=== PATIENT | female | born 1945 | race Caucasian/White ===

== ENCOUNTER 2017-05-09 14:00 | Outpatient (RCR) | payer MEDICARE, SELFPAY ==
--- NOTE | 2017-01-31 06:58 | HP.PTEVAL_ITS ---
Patient's Visit Information DON GTZ is a 71 year old F referred to Physical Therapy by Aby Rosas with a diagnosis of lumbar spinal stenosis. Date of Evaluation: 01/30/17 Physical Therapist: Gen Fuller - Visit Plan Frequency: 2x /Week Duration: 8-12 weeks Plan: Start with BLE and core strengtheing in neutral spine and CKC positioning. Progress gait as tolerated. Add in US or IFC for pain control. Progress balance statically and dynamically once improved BLE and core strengthening has occured. - Subjective Subjective: Pt. is here today for her initial evaluation with diagnosis of lumbar spinal stenosis. She reports having back pain that started ~5 months ago with no mechanism of injury. She had injections, but ultimately had to go to [facility] secondary to increased debility, decreased mobility and high levels of pain. She has improved symptoms, but is now having to use a walker for most mobility and WC for community mobility. She had increased pain in BLEs and lumbar spine. Increased pain: walking, standing, sleeping, and most ADLs. Decreased pain: sitting, use of heat and pain medications. Pt. reports bilateral N/T in feet, but has been diagnosed with peripheral neuropathy. Pt. has DM II, psoriatic arthritis and has history of B TKA and recent R reverse total shoulder replacement. Pt. denies changes in B/B and no saddle region pain. She is currently sleeping in lift chair for comfort. MRI- 08/24/16- multi level facet arthrosis, multilevel annular bulges, multilevel foraminal stenosis , disc extrusion at L1/L2 and ganglion cyst impinging L4 nerve root on R side. Xray- standing on - grade 1 anteriorlithesis L4/L5 and multilevel facet arthrosis. Pt. reports being able to ambulate short distances, but is limited secondary to pain. She did complete HH PT with focus on mobility and initiation of core stability exercises. She did meet with orthopedist who is recommending possible surgery, but would like pt. to improve BLE and core strength to improve post surgical outcomes. Pt. is hopeful to reduce symptoms and increase strength in order to increase mobility and increase tolerance to all functional ADLs. - Pain Lumbar spine Pain Intensity (Out of 10): 3 Pain Intensity Range: 1, 7 B posterior thighs Pain Intensity (Out of 10): 3 Pain Intensity Range: 1, 7 - Objective POSTURE: Sitting posture- slouched overall, rounded shoulder, FH positioning. Pt. is able to stand with walker with improved posture, but has increased symptoms with proper erect posture. PALPATION: Pt. mild increase in symptoms at bilateral lumbar erector spinea. Pt. has no pain to palpation throughout BLEs. NEUROLOGICAL: Pt. has normal sensation throughout bilateral LEs, except has dulled sensation to light touch of bilateral feet/ankles. Pt. has 2+ achilles DTR, difficult to elicit bilateral patellar DTR (pt. did have bilateral TKA). Pt is able to rise on heels with use of balance aide. ROM: LUMBAR SPINE: flexion mod loss difficulty with balance, ext mod loss increase NW , side bend mod loss bilat increase NW, rotation mod loss increase NW bilat. Pt. has decreased HS length and decreased hip flexor length bilaterally. Pt. has slight reduction in hip ROM, restricted secondary to adipose tissue. MMT: RLE- ankle- DF 4/5, PF 4/5; knee- ext 4+/5, flexion 4/5; hip- flexion 3+/5, abd 3+/5, ext 3+/5. LLE- ankle- DF 4+/5, PF 4+/5. knee- ext 4+/5, flexion 4/5; hip - flexion 3+/5, abd 3+/5, ext 3+/5. Core strength- poor. GAIT: Pt. was able to ambulate with FWW NIRMALA x98' without LOB, she heavily uses AD to stabilize. Pt. has flexed posture, decreased hip extension, and reduced lumbar lordosis. Pt. reports increased fatigue and pain as limiting factor with gait. - Balance Scores Tinetti Balance Score: 8 Tinetti Gait Score: 8 Tinetti Balance & Gait Score: 16 - Goals Goal 1:: Pt. to be I with HEP. Goal Time Frame: 4-6 Weeks Goal 2:: Pt. to have decreased pain with sitting, sleeping and walking to 0-2/ 10 pain allowing for increased quality of life. Goal Time Frame: 6-8 Weeks Goal 3:: Pt. to have increased BLE and core strength by 1/2 grade reducing stress applied to lumbar spine with all functional mobility. Goal Time Frame: 8-12 Weeks Goal 4:: Pt. to ambulate greater than 350ft. with walker NIRMALA with 0-2/10 pain allowing for increased community mobility. Goal Time Frame: 6-8 Weeks Goal 5:: Pt. to demonstrate improved upright posture with both sitting and standing reducing stress at lumbar spine with all mobility. Goal Time Frame: 6-8 Weeks Goal 6:: Pt. to have improved lumbar ROM by 25% in all directions without increase in symptoms. Goal Time Frame: 6-8 Weeks - Rehabilitation Potential Physical Therapy Diagnosis: Pt. has signs and symptoms consistent with lumbar spinal stenosis. She has subsequent increased levels of pain in lumbar spine and LES, inrcreased difficulty with walking, decreased core/BLE strength, and decreased ability to tolerate most functional mobility. Rehabilitation Potential: Fair - Anticipated Interventions Patient/Client Instruction: Educate patient on: Condition, Plan of Care, Risk Factors, Benefits of Fitness Program For the Purpose of:: To improve safety, To improve health and function, To foster healthy habits, To improve decision making, To facilitate caregiver knowledge, To improve self management, To prevent re-injury, To improve ability to perform tasks related to life management, To improve tolerance to ADL's Therapeutic Exercise to Include: Strength training, Power training, Endurance training, Balance training, Coordination, Body mechanics, Postural training, Flexibilty training, Gait and locomotor training, Dynamic Lumbar Stabilization, Scapular Strength/Stabilization For the Purpose of:: To decrease pain, To increase ROM, To improve nutrient delivery to tissue, To improve muscle performance and motor function, To improve ability to perform ADL's, To increase tolerance to activity/condition/ position, To improve performance and independence with ADL's, To improve gait and locomotor functions, To improve health of tissue, To decrease soft tissue restriction, To increase flexibility/ROM, To improve endurance, To improve balance, To improve safety with gait IF ES: Yes Cryotherapy (ice pack, ice massage): Yes Ultrasound (thermal/non thermal): Yes For the Purpose of:: To decrease pain, To increase ROM, To improve nutrient delivery to tissue Thank you for the opportunity to evaluate your patient. For Medicare and Medicare HMO plans, please review the plan of care and approve it. It will need to be FAXED BACK to us at [phone] for Medicare purposes. Please let me know if there are questions or concerns regarding this plan of care. Physician Signature: Date:
--- NOTE | 2017-02-20 16:32 | HP.PTEVAL2 ---
Patient's Visit Information DON GTZ is a 71 year old F referred to Physical Therapy by Aby Rosas with a diagnosis of B lateral epicondylitis. Date of Evaluation: 02/20/17 Physical Therapist: Gen Fuller - Visit Plan Frequency: 2x /Week Duration: 4 Weeks Plan: Start with DFM, mobilization with movements of elbow, eccentric strengthening, wrist extensor stretching. May use US and or DN to wrist extensors. - Subjective Subjective: Pt. is here today for her initial evaluation with diagnosis of bilateral lateral epicondylitis. Pt. is known to this PT. She is currently being seen for LBP with need for future surgery. She was seen by her physician for her shoulder (recently replaced) and was having bilateral elbow pain. She was diagnosed with bilateral lateral epicondylitis. Increased pain: WBing on walker, lifting, griping, twisting off bottle caps/lids. Decreased pain: not using my arms. Pt. reports no tingling in her arm, but has pain at lateral aspect of her elbows. She had similar pain in both elbows. He is able to sleep without issues, but has frequent pain with bracing on walker. She reports symptoms have been about the same over the past 2-3 months. Pt. denies C/Spine symptoms and no shoulder issues. She is hopeful to reduce symptoms in order to get back to all lifting and ADLs without issues. - Pain R lateral elbow Intensity: 0 Pain Intensity Range: 0, 6 L lateral elbow Intensity: 0 Pain Intensity Range: 0, 6 - Objective Objective: POSTURE: Pt. has slouched posture, rounded shoulders and has been in WC more often since recent back injury. She is expected back surgery beginning of nest year. Pt. tends to rest elbows on WC arm rest, no pain during. PALPATION: Pt. has increased symptoms to palpation of bilateral lateral epicondyles. No medial pain elbow pain or bilateral distal arm. Pt. had no pain in each wrist. Palpation of lateral epicondyles result in only local symptoms. NEUROLOGICAL: Pt. has normal sensation throughout bilateral UEs with light and sharp touch. Pt. has 2+ bilateral biceps and triceps DTR. ROM: RUE- elbow 0-0-134deg no pain. L elbow- 0-0-136deg. No pain with elbow ROM. Wrist ROM, slight reduction with wrist flexion bilaterally increased stetch noted. CERVICAL SPINE: normal without increase in symptoms. MMT: RUE- wrist- flexion 5/5, ext 4/5 mild increase NW, SUP/PRO- 5/5; elbow- 5/5 throughout no effect. LUE- wrist flexion 5/5, ext 4/5 mild increase NW, SUP/PRO- 5/5; elbow- 5/5 throughout no effect. Sales Account Specialist strength RUE- 49lbs, 44lbs, 48lbs. LUE- 36lbs, 39lbs, 38lbs. Pt. is R hand dominant - Special Tests Valgus Stress Test - MCL Instability: Negative Lat Epiconylitis - as named: Positive Valgus Stress Test - MCL Instability: Negative Lat Epiconylitis - as named: Positive - Goals Goal 1:: Pt. to be I with HEP. Goal Time Frame: 4-6 Weeks Goal 2:: Pt. to have decreased pain at bilateral lateral epicondyles to 0-1/10 pain. Goal Time Frame: 4-6 Weeks Goal 3:: Pt. to have increased tolerance to all ADLs with reports of 0-1/10 bilateral elbow pain. Goal Time Frame: 4-6 Weeks Goal 4:: Pt. to ambulate with use of AD without increase in bilateral elbow pain. Goal Time Frame: 4-6 Weeks Goal 5:: Pt. to lift upto a gallon of milk without increase in symptoms. Goal Time Frame: 4-6 Weeks - Rehabilitation Potential Physical Therapy Diagnosis: Pt. has signs and symptoms consistent with bilateral lateral epicondylitis. She has tenderness at bilateral lateral extensor group. She has decreased brick unloader tender strength and pain with all lifting. She would benefit from PT to increase extensor strength, decreased inflammation of wrist extensor group allowing for increased tolerance to ADLs. Rehabilitation Potential: Good - Anticipated Interventions Patient/Client Instruction: Educate patient on: Condition, Plan of Care, Risk Factors, Benefits of Fitness Program For the Purpose of:: To reduce risk of recurrence, To improve safety, To improve health and function, To foster healthy habits, To improve decision making, To facilitate caregiver knowledge, To improve self management, To prevent re-injury, To improve ability to perform tasks related to life management, To improve tolerance to ADL's Therapeutic Exercise to Include: Strength training, Power training, Postural training, Flexibilty training, Passive ROM, Active ROM For the Purpose of:: To decrease pain, To decrease swelling/inflammation, To increase ROM, To improve nutrient delivery to tissue, To increase oxygenation perfusion, To improve muscle performance and motor function Manual Therapy Techniques to Include: Mobilization, Passive ROM, Functional dry needling For the Purpose of:: To decrease pain, To decrease swelling/inflammation, To increase ROM Ultrasound (thermal/non thermal): Yes For the Purpose of:: To decrease pain, To decrease swelling/inflammation, To increase ROM Thank you for the opportunity to evaluate your patient. For Medicare and Medicare HMO plans, please review the plan of care and approve it. It will need to be FAXED BACK to us at [phone] for Medicare purposes. Please let me know if there are questions or concerns regarding this plan of care. Physician Signature: Date:
--- NOTE | 2017-04-11 07:08 | HP.PTREVAL_ITS ---
Aby Rosas, It has been my pleasure to treat DON GTZ over the last 10 visits for lumbar spinal stenosis. Please see the progress note below for an update on the physical therapy plan of care! Subjective: Pt. reports I was really sore after the last visit (~2 weeks ago). Pt. reports having to use walker more. The only exercise that was added with standing heel/toe raises. Pt. is slowly getting back to previous levels. Pt. arrives today in [place]. Objective/Function: GAIT: Pt. was able to ambualte with FWW 1x120' and 1x142'. SBA without LOB, increased B posterior leg pain as limting factor. BLE strength - 4+/5 througout without increase in symptoms, except 4/5 with bilat hip abd and flexion mld increase increase in symptoms. Core strength- poor+. Pt. is able to demonstrate improved sitting and standing posture allowing for increased tolerance. She continues to be limited with gait to shorter distances secondary to BLE pain. Pt. is sleeping for longer periods with upto 3-4/10 pain ~6 hours per night. LUMBAR ROM- flexion min/mod loss increase, ext mod loss increase NW, SB min loss NE, rotatation min/mod loss increase NW. Plan Plan: Asking for extension of time to continuew ith POC. Pt. has had several things come up with family emergencies and with other co illnesses that have caused to her miss visits. Pt. continues to have plan of lossing enough wt., improving core strength and general mobility in order to have spinal surgery early next year. Overall she is improving, but not to the levels that she would need to have safe recovery from surgery. I would recomend cont. PT (extension of time) to allow for continued visits with continue with core/BLE stregnthening , gerneral mobility and redcued symptoms. Goals Goal 1:: Pt. to be I with HEP. Goal Time Frame: 4-6 Weeks Goal Progress: Goal Met Goal 2:: Pt. to have decreased pain with sitting, sleeping and walking to 0-2/ 10 pain allowing for increased quality of life. Goal Time Frame: 6-8 Weeks Goal Progress: Progressing Goal 3:: Pt. to have increased BLE and core strength by 1/2 grade reducing stress applied to lumbar spine with all functional mobility. Goal Time Frame: 8-12 Weeks Goal Progress: Progressing Goal 4:: Pt. to ambulate greater than 350ft. with walker NIRMALA with 0-2/10 pain allowing for increased community mobility. Goal Time Frame: 6-8 Weeks Goal Progress: Progressing Goal 5:: Pt. to demonstrate improved upright posture with both sitting and standing reducing stress at lumbar spine with all mobility. Goal Time Frame: 6-8 Weeks Goal Progress: Progressing Goal 6:: Pt. to have improved lumbar ROM by 25% in all directions without increase in symptoms. Goal Time Frame: 6-8 Weeks Goal Progress: Progressing Anticipated Interventions Patient/Client Instruction: Educate patient on: Condition, Plan of Care, Risk Factors, Benefits of Fitness Program For the Purpose of:: To improve safety, To improve health and function, To foster healthy habits, To improve decision making, To facilitate caregiver knowledge, To improve self management, To prevent re-injury, To improve ability to perform tasks related to life management, To improve tolerance to ADL's Therapeutic Exercise to Include: Strength training, Power training, Endurance training, Balance training, Coordination, Body mechanics, Postural training, Flexibilty training, Gait and locomotor training, Dynamic Lumbar Stabilization, Scapular Strength/Stabilization For the Purpose of:: To decrease pain, To increase ROM, To improve nutrient delivery to tissue, To improve muscle performance and motor function, To improve ability to perform ADL's, To increase tolerance to activity/condition/ position, To improve performance and independence with ADL's, To improve gait and locomotor functions, To improve health of tissue, To decrease soft tissue restriction, To increase flexibility/ROM, To improve endurance, To improve balance, To improve safety with gait IF ES: Yes Cryotherapy (ice pack, ice massage): Yes Ultrasound (thermal/non thermal): Yes For the Purpose of:: To decrease pain, To increase ROM, To improve nutrient delivery to tissue Please do not hesitate to contact me at [phone] by phone or Fax: if you have questions or concerns regarding this new plan of care! Sincerely, Gen Fuller
--- NOTE | 2017-04-11 07:12 | HP.PT.NRP(2) ---
HP - Discharge Summary (2) - Patient Information DON GTZ was seen in my office for initial evaluation on 02/20/17. The following Plan of Care was established for this patient: Initial Frequency: 2x /Week Initial Duration: 4 Weeks Plan from Re-Evaluation: Start with DFM, mobilization with movements of elbow, eccentric strengthening, wrist extensor stretching. May use US and or DN to wrist extensors. - Anticipated Interventions Patient/Client Instruction: Educate patient on: Condition, Plan of Care, Risk Factors, Benefits of Fitness Program For the Purpose of:: To reduce risk of recurrence, To improve safety, To improve health and function, To foster healthy habits, To improve decision making, To facilitate caregiver knowledge, To improve self management, To prevent re-injury, To improve ability to perform tasks related to life management, To improve tolerance to ADL's Therapeutic Exercise to Include: Strength training, Power training, Postural training, Flexibilty training, Passive ROM, Active ROM For the Purpose of:: To decrease pain, To decrease swelling/inflammation, To increase ROM, To improve nutrient delivery to tissue, To increase oxygenation perfusion, To improve muscle performance and motor function Manual Therapy Techniques to Include: Mobilization, Passive ROM, Functional dry needling For the Purpose of:: To decrease pain, To decrease swelling/inflammation, To increase ROM Ultrasound (thermal/non thermal): Yes For the Purpose of:: To decrease pain, To decrease swelling/inflammation, To increase ROM This patient was last seen in our office . Pertinent comments regarding their Physical therapy will appear below: Pt. was seen for her lateral epicondylitis. She was treated with DFM, eccentric strengthening and with wrist extensor stretching. She is no longer having any pain at this point in time. I will DC her to her [facility] to progress. At this point I will be discontinuing this patient from physical therapy. I would be happy to see this patient again in the future if found appropriate by the physician. Thank you! Gen Fuller
--- NOTE | 2017-07-24 10:12 | HP.PTDCNRP_ITS ---
HP - Discharge Summary (1) - Patient Information DON GTZ was seen in my office for initial evaluation on 01/30/17. The following Plan of Care was established for this patient: Initial Frequency: 2x /Week Initial Duration: 8-12 weeks - Anticipated Interventions Patient/Client Instruction: Educate patient on: Condition, Plan of Care, Risk Factors, Benefits of Fitness Program For the Purpose of:: To improve safety, To improve health and function, To foster healthy habits, To improve decision making, To facilitate caregiver knowledge, To improve self management, To prevent re-injury, To improve ability to perform tasks related to life management, To improve tolerance to ADL's Therapeutic Exercise to Include: Strength training, Power training, Endurance training, Balance training, Coordination, Body mechanics, Postural training, Flexibilty training, Gait and locomotor training, Dynamic Lumbar Stabilization, Scapular Strength/Stabilization For the Purpose of:: To decrease pain, To increase ROM, To improve nutrient delivery to tissue, To improve muscle performance and motor function, To improve ability to perform ADL's, To increase tolerance to activity/condition/ position, To improve performance and independence with ADL's, To improve gait and locomotor functions, To improve health of tissue, To decrease soft tissue restriction, To increase flexibility/ROM, To improve endurance, To improve balance, To improve safety with gait IF ES: Yes Cryotherapy (ice pack, ice massage): Yes Ultrasound (thermal/non thermal): Yes For the Purpose of:: To decrease pain, To increase ROM, To improve nutrient delivery to tissue This patient was last seen in our office 06/04/17. Pertinent comments regarding their Physical therapy will appear below: Pt. was seen for her LBP for 14 visits. Pt. was making steady, but slow progress. She was progressing towards need for surgery as was indicated by physician. She has not been seen in ~ 2 months and will be DC from PT at this point in time. At this point I will be discontinuing this patient from physical therapy. I would be happy to see this patient again in the future if found appropriate by the physician. Thank you! Gen Fuller
== END 2017-05-09 19:00 | disposition home or self-care (01) ==
LOC: PT 14:00
PROVIDERS: Family Provider Internal Medicine; PCP Internal Medicine; Visit Provider Orthopaedic Surgery
DX: M77.11 Lateral epicondylitis, right elbow (principal); M77.12 Lateral epicondylitis, left elbow; M48.061 Spinal stenosis, lumbar region without neurogenic claudication
CPT/HCPCS: 97012; 97014; 97035; 97110; 97161; 97163; 97530; G0283; G8978; G8979; G8984; G8985; G8986

== ENCOUNTER → 2017-05-17 14:37 | Outpatient (CLI) | payer MEDICARE, SELFPAY ==
--- NOTE | 2017-05-17 14:40 | HPBI_ITS ---
MAMMOGRAPHY - BILATERAL SCREENING REASON FOR EXAM: Female, 71 years old. Routine annual screening examination. PERTINENT HISTORY: Non-contributory. TECHNIQUE: Digital bilateral breast rogelio (3D mammographic acquisition) in the CC and MLO projections. 2-D mediolateral oblique (MLO) and craniocaudad (CC) views of both breasts were obtained. CAD: Full Field Digital Mammography with Computer Added Detection was performed. COMPARISON: Comparison is made with prior study dated March 24, 2016 and January 31, 2015. FINDINGS: Breast Composition: The breasts are almost entirely fatty. There are no dominant masses or suspicious calcifications. No other significant abnormalities are identified. There has been no significant change since the prior study. HPBI/SCREENING MAMM (CAD), BILAT IMPRESSION: Stable bilateral screening mammogram. Yearly follow-up mammogram recommended. (A) ASSESSMENT CATEGORY: BIRADS Category 1: Negative. A letter regarding these results will be sent to the patient by the facility within 30 days. Approximately 10% of breast cancers are not detected by mammography. A normal mammogram should not delay biopsy of a clinically suspicious abnormality. [id number] Electronically Signed: Roe Sy MD at 8:31 EST Tel [phone], Service support ,
== END ==
PROVIDERS: Family Provider Internal Medicine; PCP Internal Medicine; Visit Provider Internal Medicine
DX: Z12.31 Encounter for screening mammogram for malignant neoplasm of breast (principal)
CPT/HCPCS: 77063; 77067

== ENCOUNTER 2017-05-20 13:00 | Outpatient (RCR) | payer MEDICARE, SELFPAY | END 2017-05-22 23:59 | LOC: NS 13:00 | PROVIDERS: Family Provider Internal Medicine; PCP Internal Medicine; Visit Provider Orthopaedic Surgery | DX: E66.9 Obesity, unspecified (principal); Z68.43 Body mass index [BMI] 50.0-59.9, adult; E11.9 Type 2 diabetes mellitus without complications; Z71.3 Dietary counseling and surveillance | CPT/HCPCS: 97802; 97803 ==

== ENCOUNTER → 2017-05-30 12:52 | Outpatient (CLI) | payer MEDICARE, SELFPAY ==
[2017-02-14 10:55] VITALS: BMI 54.4
[2017-05-30 13:49] LABS: Amphetamine Urine VISTA NEGATIVE (<1000 ng/mL); Barbiturate Urine VISTA NEGATIVE (< 200 ng/mL); Benzodiazepine Urine VISTA NEGATIVE (< 200 ng/mL); Cocaine Urine VISTA NEGATIVE (< 300 ng/mL); Ecstacy Urine VISTA NEGATIVE (< 500 ng/mL); Methadone Urine VISTA NEGATIVE (< 300 ng/mL); PCP Urine VISTA NEGATIVE (< 25 ng/mL); THC Urine VISTA NEGATIVE (< 50 ng/mL); Vista UDS pH Range 7
== END ==
PROVIDERS: Family Provider Internal Medicine; PCP Internal Medicine; Visit Provider Anesthesiology Pain Medicine
DX: F11.20 Opioid dependence, uncomplicated (principal)
CPT/HCPCS: 80307

== ENCOUNTER 2017-06-10 15:00 | Outpatient (RCR) | payer MEDICARE, SELFPAY ==
[2017-02-14 10:55] VITALS: BMI 54.4
[2017-04-11 13:45] VITALS: BP 137/60
== END 2017-06-19 23:59 ==
LOC: NS 15:00
PROVIDERS: Family Provider Internal Medicine; PCP Internal Medicine; Visit Provider Orthopaedic Surgery
DX: E66.9 Obesity, unspecified (principal); Z68.43 Body mass index [BMI] 50.0-59.9, adult; E11.9 Type 2 diabetes mellitus without complications; Z71.3 Dietary counseling and surveillance
CPT/HCPCS: 97803

== ENCOUNTER 2017-07-07 20:58 | Observation (INO) | payer MEDICARE, SELFPAY ==
[2017-07-07 20:59] VITALS: BP 193/97; PULSE 101; RESP 20; TEMP 37.1; O2SAT 96; BMI 55.0
[2017-07-07] MEDS: morphine 10 MG/ML Syringe SC (22:45)
[2017-07-08] VITALS (8 sets, daily range): BP systolic 134–203; BP diastolic 60–101; PULSE 64–104; RESP 16–20; TEMP 36.6–36.8; O2SAT 92–98; BMI 53.8
[2017-07-08] MEDS: morphine 10 MG/ML Syringe SC (00:05)
--- NOTE | 2017-07-08 01:40 | ED.VISSUMM ---
- ER Visit Summary Date of Service: 07/08/17 Chief Complaint: Back pain History of Present Illness: The patient is a 71 F with a history of chronic back pain who presents with an exacerbation of her back pain today. Patient does not remember any injury or trauma to her back. Patient sees pain management physician for her chronic back pain. Patient states she has seen an orthopedic spine surgeon and had an MRI. Patient states she needs to lose weight before her spine surgeon will do her surgery. Patient states that her pain is over the lower lumbar area and radiates down both lower extremities. Patient states her pain is worse with any movement. Patient denies any bowel or bladder changes. Patient denies any saddle anesthesia. Physical Examination: Vital signs are stable with the exception of an elevated blood pressure of 193/97. Patient is afebrile. Patient is in no acute distress. Musculoskeletal exam reveals tenderness over the lumbar spine paraspinal muscles. There is no bony crepitance or step-off. Range of motion was limited in all motions of the lumbar spine secondary to pain. Strength is 5/5 bilaterally in the upper and lower extremities. There are no sensory deficits noted. There is pain in her low back with straight leg raising bilaterally at approximately 30?. There is no radicular pain with this however. Heart was regular rate and rhythm. Lungs were clear and equal bilaterally. There is good respiratory effort noted. The remaining physical exam is within normal limits. Emergency Department Course and Treatment: Patient was given injection of morphine here. Patient states she had some relief with this. Patient states she then was rolled to put on a bedpan and her pain became worse again. Patient was given a repeat dose of subcu morphine. Patient states she feels unsafe at home. Patient does not feel that she can care for herself tonight. Case was discussed with the hospitalist. She will evaluate the patient. She was given a dose of prednisone here. Disposition: Admit for observation Impression: Acute on chronic low back pain This note was generated with [employer] dictation software. It may contain incorrect words, spelling, and punctuation that were not noted in review of the chart prior to signing ED Disposition - Plan for ED Patient: Disposition: Acute Care Hospital [facility] Chief Complaint: Back Diagnosis: Acute exacerbation of chronic low back pain Referrals: Fadumo Mandel DO [Primary Care Provider] -
--- NOTE | 2017-07-08 01:41 | HP.PCM_ITS ---
Problem List (1) Morbid obesity Status: Chronic (2) Fibromyalgia Status: Chronic (3) IBS (irritable bowel syndrome) Status: Chronic Qualifiers: Irritable bowel syndrome type: with diarrhea Qualified Code(s): K58.0 - Irritable bowel syndrome with diarrhea (4) Obstructive sleep apnea Status: Chronic (5) Acute exacerbation of chronic low back pain Status: Acute (6) Peripheral neuropathy Status: Chronic Qualifiers: Peripheral neuropathy type: polyneuropathy, unspecified Qualified Code(s): G62.9 - Polyneuropathy, unspecified (7) Hypothyroidism Status: Chronic Qualifiers: Hypothyroidism type: unspecified Qualified Code(s): E03.9 - Hypothyroidism , unspecified (8) Chronic low back pain Status: Chronic Qualifiers: Back pain laterality: midline Sciatica presence: with sciatica Sciatica laterality: bilateral sciatica Qualified Code(s): M54.41 - Lumbago with sciatica, right side; M54.42 - Lumbago with sciatica, left side; G89.29 - Other chronic pain (9) Psoriatic arthritis Status: Chronic (10) Type 2 diabetes mellitus Status: Chronic Qualifiers: Diabetes mellitus skilled nursing insulin use: without skilled nursing use Diabetes mellitus complication status: with unspecified complications Qualified Code(s) : E11.8 - Type 2 diabetes mellitus with unspecified complications (11) Hypertension Status: Chronic Qualifiers: Hypertension type: essential hypertension Qualified Code(s): I10 - Essential (primary) hypertension History of Present Illness Date of Admission: 07/08/17 Chief Complaint: Acute on Chronic Intractable Back Pain The patient is a 71 y/o F w/ PMHx: Morbid Obesity, Fibromyalgia, IBS, BALJIT, Peripheral Neurology, Diabetes mellitus type II, Psoriatic Arthritis, Hypertension, Chronic Lumbar Back Pain w/ radiculopathy with lumbar spinal stenosis with impingement noted to be following w/ Dr. Conroy for pain management and Neurosurgery [facility] for planned intervention once appropriate weight loss goal achieved who presents to the [facility] ED on 07/08/17 with history of acute on chronic lumbar back pain w/ worsened BL LE radicular symptoms starting this past Saturday and not improving. She denies any change in bowel or bladder. She notes similar pain baseline but more severe. In the ED patient administered notable regimen morphine with marked improvement thus given severity of debility and unable to care for self ED requested patient admission. No labs were obtained while in the ED. Past Medical History Past Medical History (Chronic Problems): Chronic Problems Morbid obesity (Chronic) Fibromyalgia (Chronic) IBS (irritable bowel syndrome) (Chronic) Obstructive sleep apnea (Chronic) Peripheral neuropathy (Chronic) Hypothyroidism (Chronic) Chronic low back pain (Chronic) Psoriatic arthritis (Chronic) Type 2 diabetes mellitus (Chronic) Hypertension (Chronic) Allergies No Known Allergies Allergy (Verified 02/14/17 12:50) Home Medications: Ambulatory Orders Medication Instructions Recorded Atenolol [Tenormin (beta rema)] 50 mg PO DAILY 02/20/13 Hydroxychloroquine [Plaquenil] 200 mg PO BIDCM 02/20/13 Ropinirole HCl [Requip] 2 mg PO QHS PRN PRN 02/20/13 Gabapentin 400 mg PO 5X/DAY 05/05/13 Cyclobenzaprine [Flexeril] 10 mg PO TID PRN PRN 08/24/13 Infliximab [Remicade] 5 mg IV QMONTH 08/24/13 Multivitamins,Therapeutic 1 tablet PO DAILY 08/24/13 [Multivitamin] Duloxetine Hcl [Cymbalta] 30 mg PO DAILY 05/10/15 Calcium Carbonate [Calcium] 600 mg PO BID 08/25/15 Levothyroxine [Synthroid] 50 mcg PO DAILY 01/23/16 Lansoprazole [Prevacid] 30 mg PO BID 08/21/16 Metformin HCl 500 mg PO DAILY 08/22/16 Citalopram [Celexa] 10 mg PO QHS 07/07/17 Meloxicam 7.5 mg DAILY 07/07/17 Oxycodone Myristate [Xtampza ER] 9 mg PO Q8 PRN 07/07/17 Surgical History: cholecystectomy, hysterectomy, total knee arthroplasty - BL TKR., - - R Reverse Shoulder replacement. Psychiatric History: Depression [employer] History: No pertinent [employer] history Lives: Alone Smoking Status: Never smoker Tobacco Use: Non-smoker Alcohol: None Drugs: None - *Family History Maternal History Items: No pertinent history Paternal History Items: Diabetes, Heart Disease Review of Systems Constitutional: Reports: Weakness, Fatigue. Denies: Chills, Fever, Weight Change HEENT: Denies: Head Aches, Sinus Congestion, Sinus Drainage Cardiovascular: Denies: Chest Pain, Palpitations Respiratory: Denies: Cough, Shortness of breath at rest, Sputum production Gastrointestinal: Reports: Diarrhea. Denies: Abdominal Pain, Nausea, Vomiting Genitourinary: Denies: Dysuria Musculoskeletal: Reports: Back Pain, Leg Pain. Denies: Joint Pain, Joint Tenderness Skin: Denies: Rash, Wounds Neurological: Denies: Numbness, Tingling, Focal weakness Psychiatric: Reports: Depression. Denies: Anxiety, Homicidal Ideations, Suicidal Ideations Hematologic/ Lymphatic: Denies: Easy Bruising, Easy Bleeding VTE Information - Inpt Only VTE Present on Admission: No VTE Mechan Device Prophylaxis: SCD's VTE Pharm Prophylaxis ordered?: Yes Patient Problems: Active and Suspected Problems Acute exacerbation of chronic low back pain (Acute) Subjective: Laying in the ED bed, severe pain with movement, otherwise upon initial evaluation was more comfortable appearing until movement in bed requested. Objective: Physical Examination: General: awake, alert, oriented x 3 and cooperative, laying in the ED bed, severe pain elicited with movement. Skin: normal color, turgor, no icterus, cyanosis. HEENT: AT/NC, EOMI, PERRLA, mildly dry MM, no carotid bruits or JVD noted. Lungs: Diminished BL bases, moderate effort, mild decrease BL bases, no rales, ronchi or wheezing. Heart: Regular rate and rhythm; no gallop, rub audible. Abdomen: soft, morbidly obese, NTTP, ND, normal BS, no HSM; however, habitus makes examination difficult. Extremities: no cyanosis, clubbing, BL ankle edema, severe discomfort to the lateral lumbar spine, discomfort with roll. Neurological: patient awake, alert, oriented x 3; cognitive function intact; pupils equally reactive to light and accomodation; cranial nerves II-XII grossly normal, moving all 4 extremities but severely limited given acute lumbar pain, no focal deficits, strength severely globally decreased secondary to acute presentation. Psychiatric: affect appears strained, no acute evidence of depressive or anxiety feelings. - Physical Exam Vital Signs Temp Pulse Resp BP Pulse Ox 98.7 F 101 H 20 H 203/91 H 96 07/07/17 20:59 07/07/17 20:59 07/07/17 20:59 07/08/17 00:01 07/08/17 00:01 Oxygen Delivery Method Room Air Weight: 291 lb 0.163 oz Body Mass Index (BMI) 55.0 Finger Stick Blood Glucose 164 Assessment/Plan Active and Suspected Problems Acute exacerbation of chronic low back pain (Acute) The patient is a 71 y/o F w/ PMHx: Morbid Obesity, Fibromyalgia, IBS, BALJIT, Peripheral Neurology, Diabetes mellitus type II, Psoriatic Arthritis, Hypertension, Chronic Lumbar Back Pain w/ radiculopathy with lumbar spinal stenosis with impingement noted to be following w/ Dr. Conroy for pain management and Neurosurgery [facility] for planned intervention once appropriate weight loss goal achieved who presents to the [facility] ED on 07/08/17 with history of acute on chronic lumbar back pain w/ worsened BL LE radicular symptoms starting this past Saturday and not improving. She denies any change in bowel or bladder. (1) Acute on Chronic Intractable Back Pain, Lumbar w/ BL LE Radiculopathy with Chronic Spinal Stenosis: Patient notes following w/ Neurosurgery with planned intervention once weight loss goal achieved. Following w/ Dr. Conroy for Chronic pain management. Given debility, unable to care for self, will admit to [facility], maintain on fall precautions, frequent positioning, po/IV pain regimen, burst prednisone steroid regimen, flexeril PRN, anti-emetics, bowel regimen. Will consult PT and OT for evaluation. If pain ongoing may need to obtain MRI lumbar spine region of consider consultation to Dr. Conroy for injection. Most recently noted MRI Lumbar Spine 08/2016 with multilevel foraminal stenosis with impingement. (2) Psoriatic Arthritis: Maintain home regimen plaquenil, outpatient qmonth remicade, PRN pain regimen. (3) Diabetes mellitus type II w/ Neuropathy: Hold oral home regimen, ADA diet, accu checks w/ ISS, continue neurontin. (4) Morbid Obesity: Weight loss and lifestyle changes encouraged, nutrition consulted. (5) Anxiety and Depression: Maintain on home regimen cymbalta, celexa. (6) Hypothyroidism: Maintain on home synthroid regimen. (7) Hypertension: Continue home regimen including atenolol, PRN hydralazine. (8) GERD: Famotidine. (9) RLS: Maintain on home requip regimen. (10) BALJIT: BIPAP q HS. (11) DVT Prophylaxis: SCDs, lovenox. Code Visit OBSV E&M: 21950 Initial observation care L3
--- NOTE | 2017-07-08 01:44 | ED.DCSUM_ITS ---
- ER Visit Summary Date of Service: 07/08/17 Chief Complaint: Back pain History of Present Illness: The patient is a 71 F with a history of chronic back pain who presents with an exacerbation of her back pain today. Patient does not remember any injury or trauma to her back. Patient sees pain management physician for her chronic back pain. Patient states she has seen an orthopedic spine surgeon and had an MRI. Patient states she needs to lose weight before her spine surgeon will do her surgery. Patient states that her pain is over the lower lumbar area and radiates down both lower extremities. Patient states her pain is worse with any movement. Patient denies any bowel or bladder changes. Patient denies any saddle anesthesia. Physical Examination: Vital signs are stable with the exception of an elevated blood pressure of 193/97. Patient is afebrile. Patient is in no acute distress. Musculoskeletal exam reveals tenderness over the lumbar spine paraspinal muscles. There is no bony crepitance or step-off. Range of motion was limited in all motions of the lumbar spine secondary to pain. Strength is 5 /5 bilaterally in the upper and lower extremities. There are no sensory deficits noted. There is pain in her low back with straight leg raising bilaterally at approximately 30?. There is no radicular pain with this however. Heart was regular rate and rhythm. Lungs were clear and equal bilaterally. There is good respiratory effort noted. The remaining physical exam is within normal limits. Emergency Department Course and Treatment: Patient was given injection of morphine here. Patient states she had some relief with this. Patient states she then was rolled to put on a bedpan and her pain became worse again. Patient was given a repeat dose of subcu morphine. Patient states she feels unsafe at home. Patient does not feel that she can care for herself tonight. Case was discussed with the hospitalist. She will evaluate the patient. She was given a dose of prednisone here. Disposition: Admit for observation Impression: Acute on chronic low back pain This note was generated with [employer] dictation software. It may contain incorrect words, spelling, and punctuation that were not noted in review of the chart prior to signing ED Disposition - Plan for ED Patient: Disposition: Acute Care Hospital [facility] Chief Complaint: Back Diagnosis: Acute exacerbation of chronic low back pain Referrals: Fadumo Mandel DO [Primary Care Provider] -
[2017-07-08] MEDS: Ketorolac 30 MG/ML Syringe IV ×3 (03:43→18:34)
[2017-07-08 04:05] LABS: Absolute Lymphocyte Count 1.28 X10^3/ul (0.83-4.51); Absolute Neutrophil Count 7.2 X10^3/uL (2.0-7.7); Basophil# 0.06 X10^3/uL; Basophil% 0.6 % (0-1); Eosinophil# 0.37 X10^3/uL; Eosinophils% 3.9 % (0-5); Hematocrit 39.3 % (37-47); Hemoglobin 12.7 g/dl (12.0-15.0); Lymphocyte # 1.28 X10^3/ul (4.0); Lymphocyte % 13.4 % (19-41); Mean Corp Hgb Conc 32.3 g/gl (32-36); Mean Corpuscular Hgb 29.3 pg (27.0-32.0); Mean Corpuscular Volume 90.6 fL (81-99); Mean Platelet Vol. 9.8 fl (6.2-12.0); Monocyte# 0.65 X10^3/uL; Monocyte% 6.8 % (0-10); Neutrophil # 7.17 X10^3/uL (2.7-7.7); Neutrophil % 74.9 % (47-70); Platelet Count 258 K/mm3 (150-450); RBC Distribution Width CV 13.6 % (11.6-14.6); RBC Distribution Width SD 44.6 fl (35.1-43.9); Red Blood Count 4.34 M/mm3 (4.2-5.4); White Blood Count 9.6 K/mm3 (4.4-11.0)
[2017-07-08 04:09] LABS: POSITIVE COUNT NO; POSITIVE DIFFERENTIAL NO; POSITIVE MORPHOLOGY NO
[2017-07-08 04:17] LABS: ALB/GLOB Ratio 0.8 RATIO (0.9-2.4); AST(SGOT) 18 U/L (15-37); Alanine Aminotransfer ALT/SGPT 23 U/L (13-56); Albumin, Serum 3.1 g/dL (3.2-5.0); Alkaline Phosphatase 83 U/L (45-117); Anion Gap 9 (5-15); BUN 15 mg/dL (7-18); BUN/Creat Ratio 15.4 RATIO (10-20); Calcium,Total 8.6 mg/dL (8.5-10.1); Chloride 104 mmol/L (98-107); Creatinine, Serum 0.98 mg/dL (0.55-1.02); EST Glomerular Filtration Rate 60 mL/min (>60); Est Glom Filt Rate - Afr Amer 72 mL/min (>60); Estimated Creatinine Clearance 39.73 ml/min; Globulin 4.1 g/dL (2.2-4.2); Glucose 105 mg/dL (74-106); Potassium 3.9 mmol/L (3.5-5.1); Protein, Total 7.2 g/dL (6.4-8.2); Sodium Level 140 mmol/L (136-145)
--- NOTE | 2017-07-08 05:01 | CPS ---
pt wears bipap at night at home, wants to bring in her own machine i still her tonight. declined use of ours for the remainder of the night.
[2017-07-08] MEDS: 0.9% NaCl Peripheral Flush Adult/Peds IV ×2 (06:36→11:09)
[2017-07-08] MEDS: CLARIFY ORDER 1 EACH NOTE (06:37)
[2017-07-08] MEDS: Gabapentin 400 MG Capsule PO ×5 (06:40→22:26)
[2017-07-08] MEDS: Levothyroxine 50 MCG Tablet PO (06:40)
[2017-07-08 06:46] LABS: Bedside Glucose 135 mg/dL (70-110)
[2017-07-08] MEDS: oxyCODONE HCl Cr 10 MG Tablet PO ×3 (06:48→22:27)
[2017-07-08] MEDS: DULoxetine Hcl 60 MG Capsule PO (07:58)
[2017-07-08] MEDS: Hydroxychloroquine 200 MG Tablet PO ×2 (07:58→16:06)
[2017-07-08] MEDS: Atenolol 50 MG Tablet PO (07:58)
[2017-07-08] MEDS: Famotidine 20 MG Tablet PO ×2 (10:02→22:26)
[2017-07-08] MEDS: Enoxaparin 40 MG/0.4 ML Syringe SC (10:03)
[2017-07-08 11:25] LABS: Bedside Glucose 181 mg/dL (70-110)
--- NOTE | 2017-07-08 14:40 | PCM.PN.BLA ---
Progress Note 71-year-old super morbid obese patient with past medical history of chronic low back pain with radiculopathy secondary to lumbar spinal stenosis, follows up with pain management in the outpatient admitted with acute intractable back pain. Patient was seen and examined, denied any new complaints, says she feels much better. Pain is 2/10, yet to ambulate with a walker. Denies any incontinence of urine or stool. Denies any fever or chills or nausea or vomiting. Physical exam shows stable vitals, patient able to wiggle her toes, appears comfortable. Did not ambulate patient out of bed. Will get DR. Conroy on consult. Will possibly discharge in am if she continue to be improved. Code Visit Procedures: Other Procedure - See Report - Non-billable rounding
[2017-07-08 16:21] LABS: Bedside Glucose 120 mg/dL (70-110)
[2017-07-08] MEDS: Citalopram 10 MG Tablet PO (22:26)
[2017-07-08 22:30] LABS: Bedside Glucose 152 mg/dL (70-110)
[2017-07-09] VITALS (8 sets, daily range): BP systolic 121–167; BP diastolic 67–87; PULSE 55–71; RESP 16–20; TEMP 36.2–36.8; O2SAT 91–97
[2017-07-09] MEDS: Acetaminophen 325 MG Tablet 650 MG PO (02:52)
[2017-07-09] MEDS: Levothyroxine 50 MCG Tablet PO (06:16)
[2017-07-09] MEDS: Gabapentin 400 MG Capsule PO ×5 (06:16→21:12)
[2017-07-09] MEDS: oxyCODONE HCl Cr 10 MG Tablet PO ×3 (06:17→21:12)
[2017-07-09 07:41] LABS: Bedside Glucose 92 mg/dL (70-110)
[2017-07-09] MEDS: 0.9% NaCl Peripheral Flush Adult/Peds IV (08:24)
[2017-07-09] MEDS: HYDROmorphone 0.5 MG/0.5 ML SYRINGE IV (08:24)
[2017-07-09] MEDS: Hydroxychloroquine 200 MG Tablet PO ×2 (08:27→16:27)
[2017-07-09] MEDS: Famotidine 20 MG Tablet PO ×2 (08:28→21:12)
[2017-07-09] MEDS: DULoxetine Hcl 60 MG Capsule PO (08:28)
[2017-07-09] MEDS: Atenolol 50 MG Tablet PO (08:29)
[2017-07-09] MEDS: Enoxaparin 40 MG/0.4 ML Syringe SC (10:20)
[2017-07-09 11:21] LABS: Bedside Glucose 157 mg/dL (70-110)
[2017-07-09] MEDS: Meloxicam 7.5 MG Tablet PO (16:26)
[2017-07-09] MEDS: Calcium Carbonate 500 MG Tablet PO ×2 (16:26→21:13)
[2017-07-09] MEDS: oxyCODONE 5 MG Tablet PO (16:34)
[2017-07-09 16:51] LABS: Bedside Glucose 172 mg/dL (70-110)
--- NOTE | 2017-07-09 17:49 | PCM.PN.HOSP ---
Patient Problems: Active and Suspected Problems Acute exacerbation of chronic low back pain (Acute) Subjective: Patient was seen and examined. Complains of low back pain. Request Toradol. Explained that we cannot give Toradol more than the recommended doses. Patient states that Dr. Conroy saw her and wanted her discharge in the same outpatient medication. She feels that she lives alone and cannot do well on the current regimen. She denied any chest pain or dizziness or constipation no nausea no vomiting. Vitals/I&O's: Vital Signs Temp Pulse Resp BP Pulse Ox 98.0 F 58 L 20 H 148/77 H 97 07/09/17 16:00 07/09/17 16:00 07/09/17 16:00 07/09/17 16:00 07/09/17 16:00 Oxygen Delivery Method Room Air Weight: 129.2 kg Body Mass Index (BMI) 53.8 Intake and Output for Last 24 Hours 07/07/17 07/08/17 07/09/17 23:59 23:59 23:59 Intake Total 500 / 500 1160 / 1160 Output Total 350 / 350 Balance 500 / 500 810 / 810 General: Alert, Oriented x3, Cooperative, No apparent distress, - - morbidly obese HEENT: Atraumatic, PERRLA, EOMI, Normocephalic Oral: Moist Mucosa Neck: Supple Lungs: Clear to auscultation, Normal air movement Cardiovascular: Regular rate, Regular Rhythm, Normal S1, Normal S2, No murmurs Abdomen: Bowel Sounds Present, Soft, Non Tender, Non-Distended, No Hepato-splenomegaly Extremities: No edema Skin: No rashes Musculoskeletal: No Tenderness to Palpation of Joints or Extremities Lymphatic: No Cervical, Supraclavicular, or Inguinal Adenopathy Neurological: Cranial nerves II-XII grossly intact, Motor Exam 5/5 strength throughout Psych/Mental Status: Normal Affect, Appropriate Laboratory Results 07/08/17 22:20: POC Glucose 152 H 07/09/17 07:33: POC Glucose 92 07/09/17 11:15: POC Glucose 157 H 07/09/17 16:24: POC Glucose 172 H Current Medications Acetaminophen (Tylenol) 650 mg PO Q6H PRN PRN PRN Reason: Non-cardiac pain (mod-severe) Last Admin: 07/09/17 02:52 Dose: 650 mg Al Hydroxide/Mg Hydroxide (Mylanta Ii) 30 ml PO Q6H PRN PRN PRN Reason: Gastric burning Atenolol (Tenormin (Beta Dain)) 50 mg PO DAILY [facility] Last Admin: 07/09/17 08:29 Dose: 50 mg Calcium Carbonate (Tums) 500 mg PO BID [facility] Last Admin: 07/09/17 16:26 Dose: 500 mg Citalopram Hydrobromide (Celexa) 10 mg PO QHS [facility] Last Admin: 07/08/17 22:26 Dose: 10 mg Cyclobenzaprine HCl (Flexeril) 10 mg PO TID PRN PRN PRN Reason: MUSCLE SPASM Last Admin: 07/09/17 10:22 Dose: 10 mg Dextrose (D50w Syringe) 0 gm IV X1 PRN; Protocol PRN Reason: Hypoglycemia Duloxetine HCl (Cymbalta) 60 mg PO DAILY [facility] Last Admin: 07/09/17 08:28 Dose: 60 mg Enoxaparin Sodium (Lovenox) 40 mg SC DAILY@1000 [facility] Last Admin: 07/09/17 10:20 Dose: 40 mg Famotidine (Pepcid) 20 mg PO BID [facility] Last Admin: 07/09/17 08:28 Dose: 20 mg Gabapentin (Neurontin) 400 mg PO 5X/DAY [facility] Last Admin: 07/09/17 14:06 Dose: 400 mg Glucagon () 1 mg IM .X1 PRN PRN Reason: Hypoglycemia Hydralazine HCl (Apresoline Iv) 10 mg IV Q4H PRN PRN PRN Reason: SBP > 160 Hydromorphone HCl (Dilaudid Iv) 0.5 mg IV Q3H PRN PRN PRN Reason: SEVERE PAIN (6-10/10) Last Admin: 07/09/17 08:24 Dose: 0.5 mg Hydroxychloroquine [facility] ([facility]) [facility] Last Admin: 07/09/17 16:27 Dose: 200 mg Insulin Aspart (Novolog Flexpen (Bkc)) 0 units SC ACHS [facility] PRN Reason: Protocol Last Admin: 07/09/17 16:28 Dose: 1 u Levothyroxine Sodium (Synthroid) 50 mcg PO DAILY@0600 [facility] Last Admin: 07/09/17 06:16 Dose: 50 mcg Magnesium Hydroxide (Milk Of Magnesia) 30 ml PO DAILY PRN PRN PRN Reason: Constipation Meloxicam (Mobic) 7.5 mg PO DAILY [facility] Last Admin: 07/09/17 16:26 Dose: 7.5 mg Metformin HCl (Glucophage) [facility] Last Admin: 07/09/17 08:27 Dose: 500 mg Multivitamins (Multivitamin) [facility] tablet [facility] Ondansetron HCl (Zofran) 4 mg IV Q8H PRN PRN PRN Reason: NAUSEA Oxycodone HCl (Oxycontin) 10 mg PO Q8 [facility] Last Admin: 07/09/17 14:05 Dose: 10 mg Oxycodone HCl (Oxyir) 5 mg PO Q4H PRN PRN PRN Reason: SEVERE PAIN (6-10/10) Last Admin: 07/09/17 16:34 Dose: 5 mg Pantoprazole Sodium (Protonix) 40 mg PO BID [facility] Pramipexole Dihydrochloride (Mirapex) 1 mg PO QHS PRN PRN PRN Reason: ANXIETY Promethazine HCl (Phenergan (Ll)) 12.5 mg IV Q6H PRN PRN PRN Reason: NAUSEA/VOMITING Sodium Chloride () 5 - 30 ml IV UD PRN PRN Reason: SALINE FLUSH Last Admin: 07/09/17 08:24 Dose: 10 ml Medical Necessity - Tobacco Use Smoking Status: Never smoker Tobacco Use: Non-smoker Assessment/Plan Active and Suspected Problems Acute exacerbation of chronic low back pain (Acute) 71 y/o F with PMHx of Morbid Obesity, Diabetes mellitus type II, Hypertension, Chronic Lumbar Back Pain with radiculopathy with lumbar spinal stenosis with impingement, following Dr. Conroy admitted on 07/08/17 with history of acute on chronic lumbar back pain with worsened bilateral lower extremity radicular pain. 1. Acute on Chronic Intractable Back Pain, lumbar with bilateral lower extremity radiculopathy with chronic spinal stenosis, pain is fairly controlled, on Oxycodone CR 10mg po 8hrly with oxycodone 5mg prn, 2. Psoriatic Arthritis, on plaquenil, outpatient q month remicade, PRN pain regimen. 3. Diabetes mellitus type II with neuropathy, on ADA diet, accuchecks, with ISS, continue neurontin. 4. Morbid Obesity, weight loss and lifestyle changes encouraged. 5. Anxiety and Depression, on cymbalta, celexa. 6. Hypothyroidism, on synthroid. 7. Hypertension, stable, on atenolol, PRN hydralazine. 8. DVT Prophylaxis - SCDs, lovenox. Code Visit Inpatient E&M: 75845 Subs Hosp L2
--- NOTE | 2017-07-09 18:04 | PN_ITS ---
Patient Problems: Active and Suspected Problems Acute exacerbation of chronic low back pain (Acute) Subjective: Patient was seen and examined. Complains of low back pain. Request Toradol. Explained that we cannot give Toradol more than the recommended doses. Patient states that Dr. Conroy saw her and wanted her discharge in the same outpatient medication. She feels that she lives alone and cannot do well on the current regimen. She denied any chest pain or dizziness or constipation no nausea no vomiting. Vitals/I&O's: Vital Signs Temp Pulse Resp BP Pulse Ox 98.0 F 58 L 20 H 148/77 H 97 07/09/17 16:00 07/09/17 16:00 07/09/17 16:00 07/09/17 16:00 07/09/17 16:00 Oxygen Delivery Method Room Air Weight: 129.2 kg Body Mass Index (BMI) 53.8 Intake and Output for Last 24 Hours 07/07/17 07/08/17 07/09/17 23:59 23:59 23:59 Intake Total 500 / 500 1160 / 1160 Output Total 350 / 350 Balance 500 / 500 810 / 810 General: Alert, Oriented x3, Cooperative, No apparent distress, - - morbidly obese HEENT: Atraumatic, PERRLA, EOMI, Normocephalic Oral: Moist Mucosa Neck: Supple Lungs: Clear to auscultation, Normal air movement Cardiovascular: Regular rate, Regular Rhythm, Normal S1, Normal S2, No murmurs Abdomen: Bowel Sounds Present, Soft, Non Tender, Non-Distended, No Hepato- splenomegaly Extremities: No edema Skin: No rashes Musculoskeletal: No Tenderness to Palpation of Joints or Extremities Lymphatic: No Cervical, Supraclavicular, or Inguinal Adenopathy Neurological: Cranial nerves II-XII grossly intact, Motor Exam 5/5 strength throughout Psych/Mental Status: Normal Affect, Appropriate Laboratory Results 07/08/17 22:20: POC Glucose 152 H 07/09/17 07:33: POC Glucose 92 07/09/17 11:15: POC Glucose 157 H 07/09/17 16:24: POC Glucose 172 H Current Medications Acetaminophen (Tylenol) 650 mg PO Q6H PRN PRN PRN Reason: Non-cardiac pain (mod-severe) Last Admin: 07/09/17 02:52 Dose: 650 mg Al Hydroxide/Mg Hydroxide (Mylanta Ii) 30 ml PO Q6H PRN PRN PRN Reason: Gastric burning Atenolol (Tenormin (Beta Dain)) 50 mg PO DAILY [facility] Last Admin: 07/09/17 08:29 Dose: 50 mg Calcium Carbonate (Tums) 500 mg PO BID [facility] Last Admin: 07/09/17 16:26 Dose: 500 mg Citalopram Hydrobromide (Celexa) 10 mg PO QHS [facility] Last Admin: 07/08/17 22:26 Dose: 10 mg Cyclobenzaprine HCl (Flexeril) 10 mg PO TID PRN PRN PRN Reason: MUSCLE SPASM Last Admin: 07/09/17 10:22 Dose: 10 mg Dextrose (D50w Syringe) 0 gm IV X1 PRN; Protocol PRN Reason: Hypoglycemia Duloxetine HCl (Cymbalta) 60 mg PO DAILY [facility] Last Admin: 07/09/17 08:28 Dose: 60 mg Enoxaparin Sodium (Lovenox) 40 mg SC DAILY@1000 [facility] Last Admin: 07/09/17 10:20 Dose: 40 mg Famotidine (Pepcid) 20 mg PO BID [facility] Last Admin: 07/09/17 08:28 Dose: 20 mg Gabapentin (Neurontin) 400 mg PO 5X/DAY [facility] Last Admin: 07/09/17 14:06 Dose: 400 mg Glucagon () 1 mg IM .X1 PRN PRN Reason: Hypoglycemia Hydralazine HCl (Apresoline Iv) 10 mg IV Q4H PRN PRN PRN Reason: SBP > 160 Hydromorphone HCl (Dilaudid Iv) 0.5 mg IV Q3H PRN PRN PRN Reason: SEVERE PAIN (6-10/10) Last Admin: 07/09/17 08:24 Dose: 0.5 mg [facility]ine [facility]) [facility] Last Admin: 07/09/17 16:27 Dose: 200 mg Insulin Aspart (Novolog Flexpen (Bkc)) 0 units SC ACHS [facility] PRN Reason: Protocol Last Admin: 07/09/17 16:28 Dose: 1 u Levothyroxine Sodium (Synthroid) 50 mcg PO DAILY@0600 [facility] Last Admin: 07/09/17 06:16 Dose: 50 mcg Magnesium Hydroxide (Milk Of Magnesia) 30 ml PO DAILY PRN PRN PRN Reason: Constipation Meloxicam (Mobic) 7.5 mg PO DAILY [facility] Last Admin: 07/09/17 16:26 Dose: 7.5 mg Metformin HCl (Glucophage) [facility] Last Admin: 07/09/17 08:27 Dose: 500 mg Multivitamins (Multivitamin) [facility] Ondansetron HCl (Zofran) 4 mg IV Q8H PRN PRN PRN Reason: NAUSEA Oxycodone HCl (Oxycontin) 10 mg PO Q8 [facility] Last Admin: 07/09/17 14:05 Dose: 10 mg Oxycodone HCl (Oxyir) 5 mg PO Q4H PRN PRN PRN Reason: SEVERE PAIN (6-10/10) Last Admin: 07/09/17 16:34 Dose: 5 mg Pantoprazole Sodium (Protonix) 40 mg PO BID [facility] Pramipexole Dihydrochloride (Mirapex) 1 mg PO QHS PRN PRN PRN Reason: ANXIETY Promethazine HCl (Phenergan (Ll)) 12.5 mg IV Q6H PRN PRN PRN Reason: NAUSEA/VOMITING Sodium Chloride () 5 - 30 ml IV UD PRN PRN Reason: SALINE FLUSH Last Admin: 07/09/17 08:24 Dose: 10 ml Medical Necessity - Tobacco Use Smoking Status: Never smoker Tobacco Use: Non-smoker Assessment/Plan Active and Suspected Problems Acute exacerbation of chronic low back pain (Acute) 71 y/o F with PMHx of Morbid Obesity, Diabetes mellitus type II, Hypertension, Chronic Lumbar Back Pain with radiculopathy with lumbar spinal stenosis with impingement, following Dr. Conroy admitted on 07/08/17 with history of acute on chronic lumbar back pain with worsened bilateral lower extremity radicular pain. 1. Acute on Chronic Intractable Back Pain, lumbar with bilateral lower extremity radiculopathy with chronic spinal stenosis, pain is fairly controlled , on Oxycodone CR 10mg po 8hrly with oxycodone 5mg prn, 2. Psoriatic Arthritis, on plaquenil, outpatient q month remicade, PRN pain regimen. 3. Diabetes mellitus type II with neuropathy, on ADA diet, accuchecks, with ISS , continue neurontin. 4. Morbid Obesity, weight loss and lifestyle changes encouraged. 5. Anxiety and Depression, on cymbalta, celexa. 6. Hypothyroidism, on synthroid. 7. Hypertension, stable, on atenolol, PRN hydralazine. 8. DVT Prophylaxis - SCDs, lovenox. Code Visit Inpatient E&M: 63156 Subs Hosp L2
[2017-07-09] MEDS: Citalopram 10 MG Tablet PO (21:12)
[2017-07-09] MEDS: Pantoprazole Sodium 40 MG Tablet PO (21:13)
[2017-07-09 22:36] LABS: Bedside Glucose 153 mg/dL (70-110)
[2017-07-10] VITALS (14 sets, daily range): BP systolic 123–163; BP diastolic 59–83; PULSE 52–66; RESP 16–20; TEMP 35.9–36.8; O2SAT 94–98; BMI 53.8
[2017-07-10] MEDS: hydrALAZINE 20 MG/ML Vial 10 MG IV (04:38)
[2017-07-10] MEDS: 0.9% NaCl Peripheral Flush Adult/Peds IV ×2 (04:38→13:52)
[2017-07-10] MEDS: oxyCODONE 5 MG Tablet PO ×3 (04:39→16:32)
[2017-07-10] MEDS: Levothyroxine 50 MCG Tablet PO (05:26)
[2017-07-10] MEDS: Gabapentin 400 MG Capsule PO ×4 (05:26→20:50)
[2017-07-10] MEDS: oxyCODONE HCl Cr 10 MG Tablet PO ×2 (05:26→20:50)
[2017-07-10 06:46] LABS: Bedside Glucose 113 mg/dL (70-110)
[2017-07-10] MEDS: Multivitamins,Therapeutic Tablet 1 TABLET PO (08:37)
[2017-07-10] MEDS: DULoxetine Hcl 60 MG Capsule PO (08:37)
[2017-07-10] MEDS: Hydroxychloroquine 200 MG Tablet PO ×2 (08:37→17:27)
[2017-07-10] MEDS: Calcium Carbonate 500 MG Tablet PO ×2 (08:38→20:50)
[2017-07-10] MEDS: Famotidine 20 MG Tablet PO ×2 (08:38→20:50)
[2017-07-10] MEDS: Atenolol 50 MG Tablet PO (08:38)
[2017-07-10] MEDS: Meloxicam 7.5 MG Tablet PO (08:38)
[2017-07-10] MEDS: Pantoprazole Sodium 40 MG Tablet PO ×2 (08:38→20:49)
[2017-07-10] MEDS: Enoxaparin 40 MG/0.4 ML Syringe SC (09:01)
[2017-07-10 12:05] LABS: Bedside Glucose 97 mg/dL (70-110)
--- NOTE | 2017-07-10 14:02 | NURSING ---
REPORT CALLED TO KEREN BARAJAS IN [facility]. PT TO [facility] VIA BED.
--- NOTE | 2017-07-10 15:25 | RAD_ITS ---
STUDY: X-RAY - LUMBAR SPINE REASON FOR EXAM: Female, 71 years old. L4-S1 nerve block TECHNIQUE: 3 fluoroscopic views of the lumbar spine were obtained from an injection procedure. COMPARISON: None FINDINGS: Fluoroscopy was provided during a nerve block procedure. There is a needle noted overlying the L4-S1 levels. Please see the operative report for additional details. RAD/Spine 1 View Any Level IMPRESSION: Fluoroscopy provided during a nerve block procedure. Electronically Signed: Lázaro John, at 17:09 EDT Tel , Service support ,
[2017-07-10] MEDS: Triamcinolone Acetonide 40 MG/ML Vial ×2 (15:40)
--- NOTE | 2017-07-10 16:09 | CHAPLAIN ---
Type of Pastoral Visit _x__ Initial Visit ___ Follow-up Visit ___ On-call Visit ___ General Patient Visit ___ Spiritual Assessment ___ Family Conference ___ Bereavement ___ Rapid Response ___ Code Blue ___ Other (describe below) Pastoral Care Referral From _x__ Patient ___ Family ___ Nurse ___ Physician ___ Discharging Machine Operator ___ Pan Tank Worker ___ Other (describe below) Sacrament/Intervention _x__ Active listening ___ Anointing ___ Yarsani ___ Bereavement ___ Communion ___ Sharmila exploration ___ ___ Life review _x__ Prayer ___ Reconciliation ___ Sacrament of Sick ___ Supportive presence ___ Wedding ___ Other (describe below) Pastoral Comments 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
[2017-07-10 16:26] LABS: Bedside Glucose 91 mg/dL (70-110)
[2017-07-10] MEDS: Acetaminophen 325 MG Tablet 650 MG PO (20:12)
[2017-07-10] MEDS: Pramipexole Di-HCl 1 MG Tablet PO (20:45)
[2017-07-10] MEDS: Citalopram 10 MG Tablet PO (20:50)
[2017-07-10 22:46] LABS: Bedside Glucose 130 mg/dL (70-110)
--- NOTE | 2017-07-10 22:59 | PCM.PN.HOSP ---
Patient Problems: Active and Suspected Problems Acute exacerbation of chronic low back pain (Acute) Subjective: Patient was seen and examined. Pain in back is 4 out of 10. Going for epidural injection. Denies fever, chills, chest pain, dizziness. Objective: Physical exam: General: Alert, Oriented x3, Cooperative, No apparent distress, - - morbidly obese HEENT: Atraumatic, PERRLA, EOMI, Normocephalic Oral: Moist Mucosa Neck: Supple Lungs: Clear to auscultation, Normal air movement Cardiovascular: Regular rate, Regular Rhythm, Normal S1, Normal S2, No murmurs Abdomen: Bowel Sounds Present, Soft, Non Tender, Non-Distended, No Hepato-splenomegaly Extremities: No edema Skin: No rashes Musculoskeletal: No Tenderness to Palpation of Joints or Extremities Lymphatic: No Cervical, Supraclavicular, or Inguinal Adenopathy Neurological: Cranial nerves II-XII grossly intact, Motor Exam 5/5 strength throughout Psych/Mental Status: Normal Affect, Appropriate Vitals/I&O's: Vital Signs Temp Pulse Resp BP Pulse Ox 98.3 F 52 L 18 123/59 H 94 07/10/17 19:51 07/10/17 20:15 07/10/17 20:15 07/10/17 19:51 07/10/17 20:15 Oxygen Delivery Method Room Air Weight: 129.2 kg Body Mass Index (BMI) 53.8 Intake and Output for Last 24 Hours 07/08/17 07/09/17 07/10/17 23:59 23:59 23:59 Intake Total 500 / 500 1940 / 1940 1600 / 1600 Output Total 350 / 350 Balance 500 / 500 1590 / 1590 1600 / 1600 Laboratory Results 07/10/17 06:34: POC Glucose 113 H 07/10/17 11:56: POC Glucose 97 07/10/17 16:23: POC Glucose 91 07/10/17 20:53: POC Glucose 130 H Current Medications Acetaminophen (Tylenol) 650 mg PO Q6H PRN PRN PRN Reason: Non-cardiac pain (mod-severe) Last Admin: 07/10/17 20:12 Dose: 650 mg Al Hydroxide/Mg Hydroxide (Mylanta Ii) 30 ml PO Q6H PRN PRN PRN Reason: Gastric burning Atenolol (Tenormin (Beta Dain)) 50 mg PO DAILY [facility] Last Admin: 07/10/17 08:38 Dose: 50 mg Calcium Carbonate (Tums) 500 mg PO BID [facility] Last Admin: 07/10/17 20:50 Dose: 500 mg Citalopram Hydrobromide (Celexa) 10 mg PO QHS [facility] Last Admin: 07/10/17 20:50 Dose: 10 mg Cyclobenzaprine HCl (Flexeril) 10 mg PO TID PRN PRN PRN Reason: MUSCLE SPASM Last Admin: 07/10/17 16:32 Dose: 10 mg Dextrose (D50w Syringe) 0 gm IV X1 PRN; Protocol PRN Reason: Hypoglycemia Duloxetine HCl (Cymbalta) 60 mg PO DAILY [facility] Last Admin: 07/10/17 08:37 Dose: 60 mg Enoxaparin Sodium (Lovenox) 40 mg SC DAILY@1000 [facility] Last Admin: 07/10/17 09:01 Dose: 40 mg Famotidine (Pepcid) 20 mg PO BID [facility] Last Admin: 07/10/17 20:50 Dose: 20 mg Gabapentin (Neurontin) 400 mg PO 5X/DAY [facility] Last Admin: 07/10/17 20:50 Dose: 400 mg Glucagon () 1 mg IM .X1 PRN PRN Reason: Hypoglycemia Hydralazine HCl (Apresoline Iv) 10 mg IV Q4H PRN PRN PRN Reason: SBP > 160 Last Admin: 07/10/17 04:38 Dose: 10 mg Hydromorphone HCl (Dilaudid Iv) 0.5 mg IV Q3H PRN PRN PRN Reason: SEVERE PAIN (6-10/10) Last Admin: 07/09/17 08:24 Dose: 0.5 mg [facility] Last Admin: 07/10/17 17:27 Dose: 200 mg Insulin Aspart (Novolog Flexpen (Bkc)) 0 units SC ACHS [facility] PRN Reason: Protocol Last Admin: 07/10/17 20:54 Dose: Not Given Levothyroxine Sodium (Synthroid) 50 mcg PO DAILY@0600 [facility] Last Admin: 07/10/17 05:26 Dose: 50 mcg Magnesium Hydroxide (Milk Of Magnesia) 30 ml PO DAILY PRN PRN PRN Reason: Constipation Meloxicam (Mobic) 7.5 mg PO DAILY [facility] Last Admin: 07/10/17 08:38 Dose: 7.5 mg Metformin [facility] (Glucophage) [facility] Last Admin: 07/10/17 08:37 Dose: 500 mg Multivitamins ([facility]ivitamin) [facility] Last Admin: 07/10/17 08:37 Dose: 1 tablet Ondansetron HCl (Zofran) 4 mg IV Q8H PRN PRN PRN Reason: NAUSEA Oxycodone HCl (Oxycontin) 10 mg PO Q8 [facility] Last Admin: 07/10/17 20:50 Dose: 10 mg Oxycodone HCl (Oxyir) 5 mg PO Q4H PRN PRN PRN Reason: SEVERE PAIN (6-10/10) Last Admin: 07/10/17 16:32 Dose: 5 mg Pantoprazole Sodium (Protonix) 40 mg PO BID [facility] Last Admin: 07/10/17 20:49 Dose: 40 mg Pramipexole Dihydrochloride (Mirapex) 1 mg PO QHS PRN PRN PRN Reason: ANXIETY Last Admin: 07/10/17 20:45 Dose: 1 mg Promethazine HCl (Phenergan (Ll)) 12.5 mg IV Q6H PRN PRN PRN Reason: NAUSEA/VOMITING Sodium Chloride () 5 - 30 ml IV UD PRN PRN Reason: SALINE FLUSH Last Admin: 07/10/17 13:52 Dose: 10 ml Medical Necessity - Tobacco Use Smoking Status: Never smoker Tobacco Use: Non-smoker Assessment/Plan Active and Suspected Problems Acute exacerbation of chronic low back pain (Acute) 71 y/o F with PMHx of Morbid Obesity, Diabetes mellitus type II, Hypertension, Chronic Lumbar Back Pain with radiculopathy with lumbar spinal stenosis with impingement, following Dr. Conroy admitted on 07/08/17 with history of acute on chronic lumbar back pain with worsened bilateral lower extremity radicular pain. 1. Acute on Chronic Intractable Back Pain, lumbar with bilateral lower extremity radiculopathy with chronic spinal stenosis, pain is fairly controlled, on Oxycodone CR 10mg po 8hrly with oxycodone 5mg prn, going foe epidural injection today. 2. Psoriatic Arthritis, on plaquenil, outpatient q month remicade 3. Diabetes mellitus type II with neuropathy, on ADA diet, accuchecks, with ISS, continue neurontin. 4. Morbid Obesity, weight loss and lifestyle changes encouraged. 5. Anxiety and Depression, on cymbalta, celexa. 6. Hypothyroidism, on synthroid. 7. Hypertension, stable, on atenolol, PRN hydralazine. 8. DVT Prophylaxis - SCDs, lovenox. Code Visit Inpatient E&M: 77143 Subs Hosp L2
--- NOTE | 2017-07-10 23:03 | PN_ITS ---
Patient Problems: Active and Suspected Problems Acute exacerbation of chronic low back pain (Acute) Subjective: Patient was seen and examined. Pain in back is 4 out of 10. Going for epidural injection. Denies fever, chills, chest pain, dizziness. Objective: Physical exam: General: Alert, Oriented x3, Cooperative, No apparent distress, - - morbidly obese HEENT: Atraumatic, PERRLA, EOMI, Normocephalic Oral: Moist Mucosa Neck: Supple Lungs: Clear to auscultation, Normal air movement Cardiovascular: Regular rate, Regular Rhythm, Normal S1, Normal S2, No murmurs Abdomen: Bowel Sounds Present, Soft, Non Tender, Non-Distended, No Hepato- splenomegaly Extremities: No edema Skin: No rashes Musculoskeletal: No Tenderness to Palpation of Joints or Extremities Lymphatic: No Cervical, Supraclavicular, or Inguinal Adenopathy Neurological: Cranial nerves II-XII grossly intact, Motor Exam 5/5 strength throughout Psych/Mental Status: Normal Affect, Appropriate Vitals/I&O's: Vital Signs Temp Pulse Resp BP Pulse Ox 98.3 F 52 L 18 123/59 H 94 07/10/17 19:51 07/10/17 20:15 07/10/17 20:15 07/10/17 19:51 07/10/17 20:15 Oxygen Delivery Method Room Air Weight: 129.2 kg Body Mass Index (BMI) 53.8 Intake and Output for Last 24 Hours 07/08/17 07/09/17 07/10/17 23:59 23:59 23:59 Intake Total 500 / 500 1940 / 1940 1600 / 1600 Output Total 350 / 350 Balance 500 / 500 1590 / 1590 1600 / 1600 Laboratory Results 07/10/17 06:34: POC Glucose 113 H 07/10/17 11:56: POC Glucose 97 07/10/17 16:23: POC Glucose 91 07/10/17 20:53: POC Glucose 130 H Current Medications Acetaminophen (Tylenol) 650 mg PO Q6H PRN PRN PRN Reason: Non-cardiac pain (mod-severe) Last Admin: 07/10/17 20:12 Dose: 650 mg Al Hydroxide/Mg Hydroxide (Mylanta Ii) 30 ml PO Q6H PRN PRN PRN Reason: Gastric burning Atenolol (Tenormin (Beta Dain)) 50 mg PO DAILY [facility] Last Admin: 07/10/17 08:38 Dose: 50 mg Calcium Carbonate (Tums) 500 mg PO BID [facility] Last Admin: 07/10/17 20:50 Dose: 500 mg Citalopram Hydrobromide (Celexa) 10 mg PO QHS [facility] Last Admin: 07/10/17 20:50 Dose: 10 mg Cyclobenzaprine HCl (Flexeril) 10 mg PO TID PRN PRN PRN Reason: MUSCLE SPASM Last Admin: 07/10/17 16:32 Dose: 10 mg Dextrose (D50w Syringe) 0 gm IV X1 PRN; Protocol PRN Reason: Hypoglycemia Duloxetine HCl (Cymbalta) 60 mg PO DAILY [facility] Last Admin: 07/10/17 08:37 Dose: 60 mg Enoxaparin Sodium (Lovenox) 40 mg SC DAILY@1000 [facility] Last Admin: 07/10/17 09:01 Dose: 40 mg Famotidine (Pepcid) 20 mg PO BID [facility] Last Admin: 07/10/17 20:50 Dose: 20 mg Gabapentin (Neurontin) 400 mg PO 5X/DAY [facility] Last Admin: 07/10/17 20:50 Dose: 400 mg Glucagon () 1 mg IM .X1 PRN PRN Reason: Hypoglycemia Hydralazine HCl (Apresoline Iv) 10 mg IV Q4H PRN PRN PRN Reason: SBP > 160 Last Admin: 07/10/17 04:38 Dose: 10 mg Hydromorphone HCl (Dilaudid Iv) 0.5 mg IV Q3H PRN PRN PRN Reason: SEVERE PAIN (6-10/10) Last Admin: 07/09/17 08:24 Dose: 0.5 mg [facility]xych[facility]oquine [facility] ([facility]) [facility] Last Admin: 07/10/17 17:27 Dose: 200 mg Insulin Aspart (Novolog Flexpen (Bkc)) 0 units SC ACHS [facility] PRN Reason: Protocol Last Admin: 07/10/17 20:54 Dose: Not Given Levothyroxine Sodium (Synthroid) 50 mcg PO DAILY@0600 [facility] Last Admin: 07/10/17 05:26 Dose: 50 mcg Magnesium Hydroxide (Milk Of Magnesia) 30 ml PO DAILY PRN PRN PRN Reason: Constipation Meloxicam (Mobic) 7.5 mg PO DAILY [facility] Last Admin: 07/10/17 08:38 Dose: 7.5 mg Metformin HCl (Glucophage) [facility] Last Admin: 07/10/17 08:37 Dose: 500 mg Multivitamins ([facility]ivitamin) [facility] Last Admin: 07/10/17 08:37 Dose: 1 tablet Ondansetron HCl (Zofran) 4 mg IV Q8H PRN PRN PRN Reason: NAUSEA Oxycodone HCl (Oxycontin) 10 mg PO Q8 [facility] Last Admin: 07/10/17 20:50 Dose: 10 mg Oxycodone HCl (Oxyir) 5 mg PO Q4H PRN PRN PRN Reason: SEVERE PAIN (6-10/10) Last Admin: 07/10/17 16:32 Dose: 5 mg Pantoprazole Sodium (Protonix) 40 mg PO BID [facility] Last Admin: 07/10/17 20:49 Dose: 40 mg Pramipexole Dihydrochloride (Mirapex) 1 mg PO QHS PRN PRN PRN Reason: ANXIETY Last Admin: 07/10/17 20:45 Dose: 1 mg Promethazine HCl (Phenergan (Ll)) 12.5 mg IV Q6H PRN PRN PRN Reason: NAUSEA/VOMITING Sodium Chloride () 5 - 30 ml IV UD PRN PRN Reason: SALINE FLUSH Last Admin: 07/10/17 13:52 Dose: 10 ml Medical Necessity - Tobacco Use Smoking Status: Never smoker Tobacco Use: Non-smoker Assessment/Plan Active and Suspected Problems Acute exacerbation of chronic low back pain (Acute) 71 y/o F with PMHx of Morbid Obesity, Diabetes mellitus type II, Hypertension, Chronic Lumbar Back Pain with radiculopathy with lumbar spinal stenosis with impingement, following Dr. Conroy admitted on 07/08/17 with history of acute on chronic lumbar back pain with worsened bilateral lower extremity radicular pain. 1. Acute on Chronic Intractable Back Pain, lumbar with bilateral lower extremity radiculopathy with chronic spinal stenosis, pain is fairly controlled , on Oxycodone CR 10mg po 8hrly with oxycodone 5mg prn, going foe epidural injection today. 2. Psoriatic Arthritis, on plaquenil, outpatient q month remicade 3. Diabetes mellitus type II with neuropathy, on ADA diet, accuchecks, with ISS , continue neurontin. 4. Morbid Obesity, weight loss and lifestyle changes encouraged. 5. Anxiety and Depression, on cymbalta, celexa. 6. Hypothyroidism, on synthroid. 7. Hypertension, stable, on atenolol, PRN hydralazine. 8. DVT Prophylaxis - SCDs, lovenox. Code Visit Inpatient E&M: 94305 Subs Hosp L2
[2017-07-11 02:00] VITALS: BP 135/67; PULSE 51; RESP 18; TEMP 36.4; O2SAT 96
[2017-07-11] MEDS: oxyCODONE 5 MG Tablet PO ×2 (02:32→09:35)
[2017-07-11 02:35] VITALS: PULSE 51
[2017-07-11] MEDS: Gabapentin 400 MG Capsule PO ×3 (06:30→13:19)
[2017-07-11] MEDS: Levothyroxine 50 MCG Tablet PO (06:30)
[2017-07-11] MEDS: oxyCODONE HCl Cr 10 MG Tablet PO ×2 (06:32→13:21)
[2017-07-11 06:51] LABS: Bedside Glucose 119 mg/dL (70-110)
[2017-07-11] MEDS: Multivitamins,Therapeutic Tablet 1 TABLET PO (07:53)
[2017-07-11] MEDS: Hydroxychloroquine 200 MG Tablet PO (07:53)
[2017-07-11] MEDS: Famotidine 20 MG Tablet PO (07:54)
[2017-07-11] MEDS: Pantoprazole Sodium 40 MG Tablet PO (07:54)
[2017-07-11] MEDS: Meloxicam 7.5 MG Tablet PO (07:54)
[2017-07-11] MEDS: DULoxetine Hcl 60 MG Capsule PO (07:55)
[2017-07-11] MEDS: Calcium Carbonate 500 MG Tablet PO (07:55)
[2017-07-11 08:00] VITALS: BP 130/57; PULSE 54; RESP 16; TEMP 36.7; O2SAT 92
[2017-07-11] MEDS: Enoxaparin 40 MG/0.4 ML Syringe SC (09:36)
--- NOTE | 2017-07-11 11:44 | DCINST_ITS ---
- Discharge Diagnoses Current Active Problems: Current Active and Chronic Problems Morbid obesity (Chronic) Fibromyalgia (Chronic) IBS (irritable bowel syndrome) (Chronic) Acute exacerbation of chronic low back pain (Acute) Reason(s) for Visit for Discharge Instructions: Acute on chronic back pain You will use the following diet at home:: Calorie/Carbohydrate Controlled ( specify 1200, 1400, etc), Cardiac Your food should be the consistency of: Regular Your liquids should be the consistency of: Regular/Thin Discharge Activity: Return to Normal Activity Additional Instructions: Follow-up closely with DR. Conroy in the outpatient Allergies/Adverse Reactions: Allergies No Known Allergies Allergy (Verified 02/14/17 12:50) Medications to take at Discharge Atenolol [Tenormin (beta rema)] 50 mg PO DAILY 02/20/13 Hydroxychloroquine [Plaquenil] 200 mg PO BIDCM 02/20/13 Ropinirole HCl [Requip] 2 mg PO QHS PRN PRN 02/20/13 Gabapentin 400 mg PO 5X/DAY 05/05/13 Cyclobenzaprine [Flexeril] 10 mg PO TID PRN PRN 08/24/13 Infliximab [Remicade] 5 mg IV QMONTH 08/24/13 Multivitamins,Therapeutic [Multivitamin] 1 tablet PO DAILY 08/24/13 Duloxetine Hcl [Cymbalta] 30 mg PO DAILY 05/10/15 Calcium Carbonate [Calcium] 600 mg PO BID 08/25/15 Levothyroxine [Synthroid] 50 mcg PO DAILY 01/23/16 Lansoprazole [Prevacid] 30 mg PO BID 08/21/16 Metformin HCl 500 mg PO DAILY 08/22/16 Citalopram [Celexa] 10 mg PO QHS 07/07/17 Oxycodone Myristate [Xtampza ER] 9 mg PO Q8 PRN 07/07/17 Meloxicam 15 mg PO DAILY #30 tab 07/11/17 The following prescriptions were given: Meloxicam 15 mg PO DAILY #30 tab Primary Care Physician: Fadumo Mandel DO [Primary Care Provider] - Please follow up with your Primary Care Physician in: within 2 weeks of discharge Please Follow Up With: Khalida Conroy MD When: as scheduled Proposed Discharge Date: 07/11/17
--- NOTE | 2017-07-11 11:44 | PCM.DC.SUM ---
Discharge Date and Diagnosis - Problem List Patient Problems: Active and Suspected Problems Acute exacerbation of chronic low back pain (Acute) Date of Admission: 07/08/17 Date of Discharge: 07/11/17 - Primary Discharge Diagnosis Active and Suspected Problems Acute on chronic low back pain (Acute) - Secondary Discharge Diagnosis Chronic Problems Morbid obesity (Chronic) Fibromyalgia (Chronic) IBS (irritable bowel syndrome) (Chronic) Obstructive sleep apnea (Chronic) Peripheral neuropathy (Chronic) Hypothyroidism (Chronic) Chronic low back pain (Chronic) Psoriatic arthritis (Chronic) Type 2 diabetes mellitus (Chronic) Hypertension (Chronic) Hospital Course and Treatment Imaging Results: Clinical Impression(s) from Imaging Studies Spine X-Ray 07/10/17 15:25 IMPRESSION: Fluoroscopy provided during a nerve block procedure. Electronically Signed: Lázaro Dora, at 17:09 EDT Tel , Service support , Pain management, Dr. Conroy Operations: None, - - Epidural injection Procedures: None Summary of Care Provided: 71 y/o F with PMHx of Morbid Obesity, Diabetes mellitus type II, Hypertension, Chronic Lumbar Back Pain with radiculopathy with lumbar spinal stenosis with impingement, following Dr. Conroy admitted on 07/08/17 with history of acute on chronic lumbar back pain with worsened bilateral lower extremity radicular pain. 1. Acute on Chronic Intractable Back Pain, lumbar with bilateral lower extremity radiculopathy with chronic spinal stenosis, pain control was used during this admission, pain management was consulted, patient had L4-S1 nerve block done on 07/10/2017 2. Psoriatic Arthritis, on plaquenil, monthly remicade 3. Diabetes mellitus type II with neuropathy, sugars were stable during the admission. 4. Morbid Obesity, weight loss and lifestyle changes encouraged. 5. Anxiety and Depression, on cymbalta, celexa. 6. Hypothyroidism, on synthroid. 7. Hypertension, stable Discharge Diet: Low fat/ Low Cholesterol, 2000 mg Sodium Diet, Carb Control Diet Discharge Activity: Return to Normal Activity Home Medications: Medications to take at Discharge Atenolol [Tenormin (beta rema)] 50 mg PO DAILY 02/20/13 Hydroxychloroquine [Plaquenil] 200 mg PO BIDCM 11/01/13 Ropinirole HCl [Requip] 2 mg PO QHS PRN PRN 02/20/13 Gabapentin 400 mg PO 5X/DAY 05/05/13 Cyclobenzaprine [Flexeril] 10 mg PO TID PRN PRN 08/24/13 Infliximab [Remicade] 5 mg IV QMONTH 08/24/13 Multivitamins,Therapeutic [Multivitamin] 1 tablet PO DAILY 08/24/13 Duloxetine Hcl [Cymbalta] 30 mg PO DAILY 05/10/15 Calcium Carbonate [Calcium] 600 mg PO BID 08/25/15 Levothyroxine [Synthroid] 50 mcg PO DAILY 01/23/16 Lansoprazole [Prevacid] 30 mg PO BID 08/21/16 Metformin HCl 500 mg PO DAILY 08/22/16 Citalopram [Celexa] 10 mg PO QHS 07/07/17 Oxycodone Myristate [Xtampza ER] 9 mg PO Q8 PRN 07/07/17 Meloxicam 15 mg PO DAILY #30 tab 07/11/17 Following Prescrptions Were Given to Patient: Meloxicam 15 mg PO DAILY #30 tab Primary Care Physician: Fadumo Mandel DO [Primary Care Provider] - Please follow up with your Primary Care Physician in: within 2 weeks of discharge Please Follow Up With: Khalida Conroy MD When: as scheduled Disposition: Home Minutes spent on discharge:: 25 Patient Condition:: Stable Medical Necessity - Tobacco Use Smoking Status: Never smoker Tobacco Use: Non-smoker Meaningful Use Info Meaningful Use Diagnoses (Choose all that apply): None applicable Code Visit Inpatient E&M: 43753 Disch Hosp
[2017-07-11] MEDS: Acetaminophen 325 MG Tablet 650 MG PO (12:08)
[2017-07-11 12:21] LABS: Bedside Glucose 130 mg/dL (70-110)
[2017-07-11 13:15] VITALS: BP 152/90; PULSE 60; RESP 16; TEMP 36.7; O2SAT 95
[2017-07-11] MEDS: Atenolol 50 MG Tablet PO (13:19)
== END 2017-07-11 14:00 | disposition home or self-care (01) ==
LOC: ED 07-08 01:44 → MS3 07-08 01:53
PROVIDERS: Anesthesiology Pain Medicine; Admitting Provider Family Medicine; Emergency Provider Emergency Medicine; Family Provider Internal Medicine; PCP Internal Medicine; Visit Provider Internal Medicine
PROC: 3E0S3BZ Introduction of Anesthetic Agent into Epidural Space, Percutaneous Approach (ICD-10-PCS; CPT 64483; principal; 2017-07-10 09:55)
DX: M48.061 Spinal stenosis, lumbar region without neurogenic claudication (principal); G89.29 Other chronic pain; M54.5 Low back pain; E66.01 Morbid (severe) obesity due to excess calories; K58.9 Irritable bowel syndrome, unspecified; G47.33 Obstructive sleep apnea (adult) (pediatric); L40.50 Arthropathic psoriasis, unspecified; M79.7 Fibromyalgia; E11.42 Type 2 diabetes mellitus with diabetic polyneuropathy; I10 Essential (primary) hypertension; E03.9 Hypothyroidism, unspecified; F41.9 Anxiety disorder, unspecified; F32.9 Major depressive disorder, single episode, unspecified; Z79.899 Other long term (current) drug therapy; Z68.43 Body mass index [BMI] 50.0-59.9, adult; Z71.3 Dietary counseling and surveillance; Z79.84 Long term (current) use of oral hypoglycemic drugs; Z87.442 Personal history of urinary calculi; G25.81 Restless legs syndrome
CPT/HCPCS: 01935; 64483; 64484; 36415; 72020; 80053; 82962; 83735; 85025; 96372; 96374; 96375; 96376; 97116; 97162; 97165; 97535; 97802; 99218; 99283; A4216; G0378

== ENCOUNTER 2017-07-15 11:30 | Outpatient (RCR) | payer MEDICARE, SELFPAY | END 2017-07-15 11:31 | disposition home or self-care (01) | LOC: NS 11:30 | PROVIDERS: Family Provider Internal Medicine; PCP Internal Medicine; Visit Provider Orthopaedic Surgery | DX: E66.9 Obesity, unspecified (principal); Z68.43 Body mass index [BMI] 50.0-59.9, adult; E11.9 Type 2 diabetes mellitus without complications; Z71.3 Dietary counseling and surveillance | CPT/HCPCS: 97803 ==

== ENCOUNTER → 2017-07-30 08:46 | Outpatient (CLI) | payer MEDICARE, SELFPAY ==
[2017-07-30 08:51] VITALS: BP 216/99; PULSE 77; RESP 18; TEMP 36.5; BMI 53.6
[2017-07-30 10:00] VITALS: BP 162/83; PULSE 73; RESP 18; TEMP 36.6
[2017-07-30 10:20] VITALS: BP 156/100; PULSE 74; RESP 18; TEMP 36.9
[2017-07-30 10:37] VITALS: BP 160/75; PULSE 75; RESP 18; TEMP 36.6
[2017-07-30 10:51] VITALS: BP 158/79; PULSE 73; RESP 18; TEMP 36.9
[2017-07-30 11:58] VITALS: BP 160/82; PULSE 79; RESP 18; TEMP 36.4
== END ==
PROVIDERS: Family Provider Internal Medicine; PCP Internal Medicine; Visit Provider Internal Medicine Rheumatology
DX: L40.59 Other psoriatic arthropathy (principal)
CPT/HCPCS: 96413; 96415; J7050; A4216; Q5103

== ENCOUNTER 2017-09-19 16:43 | Inpatient (IN) | payer MEDICARE, SELFPAY ==
[2017-09-19 16:59] VITALS: BP 127/75; PULSE 66; RESP 94; TEMP 36.4; O2SAT 20; BMI 55.0
[2017-09-19 18:35] VITALS: BMI 55.0
[2017-09-19] MEDS: Gabapentin 400 MG Capsule PO ×2 (20:04→22:24)
[2017-09-19] MEDS: Docusate Sodium 100 MG Capsule PO (20:04)
[2017-09-19] MEDS: Cephalexin 500 MG Capsule 1000 MG PO (20:04)
[2017-09-19] MEDS: Magnesium Citrate 300 ML PO (20:07)
[2017-09-19 20:30] VITALS: PULSE 75; O2SAT 94
--- NOTE | 2017-09-19 20:46 | NURSING ---
Pt stating she had last dose of Inflectra 6 weeks ago and gets it every [address] Brantley updated. Pt does not need to receive dose while on TCU.
--- NOTE | 2017-09-19 21:24 | PCM.HP.STD ---
Problem List (1) Lumbar spinal stenosis Status: Chronic (2) Muscle spasm Status: Chronic (3) Constipation Status: Chronic (4) Depression Status: Chronic (5) Neuropathic pain Status: Chronic (6) Rheumatoid arthritis Status: Chronic (7) Insomnia Status: Chronic (8) Diabetes mellitus Status: Chronic (9) Nausea Status: Chronic (10) GERD (gastroesophageal reflux disease) Status: Chronic (11) Restless leg syndrome Status: Acute (12) Hypertension Status: Chronic Qualifiers: (13) Sleep apnea Status: Chronic History of Present Illness Date of Admission: 09/19/17 Chief Complaint: Here for rehabilitation, strengthening, prior to discharge home with family. The patient is a 71 year old Female with below past medical history underwent T10 to pelvis fusion surgery with Dr. Rosas on 09/13/2017 at [facility]. She has drain in place, she wears LSO brace when she is out of bed. She walks with walker, and gait belt. 09/19/2017 Admit to TCU for rehabilitation, strengthening, prior to discharge home with family. Past Medical History Past Medical History (Chronic Problems): Chronic Problems Morbid obesity (Chronic) Fibromyalgia (Chronic) IBS (irritable bowel syndrome) (Chronic) Lumbar spinal stenosis (Chronic) Muscle spasm (Chronic) Constipation (Chronic) Depression (Chronic) Neuropathic pain (Chronic) Rheumatoid arthritis (Chronic) Insomnia (Chronic) Diabetes mellitus (Chronic) Nausea (Chronic) GERD (gastroesophageal reflux disease) (Chronic) Sleep apnea (Chronic) Obstructive sleep apnea (Chronic) Peripheral neuropathy (Chronic) Hypothyroidism (Chronic) Chronic low back pain (Chronic) Psoriatic arthritis (Chronic) Type 2 diabetes mellitus (Chronic) Hypertension (Chronic) Allergies No Known Allergies Allergy (Verified 07/30/17 09:00) Home Medications: Ambulatory Orders Medication Instructions Recorded Atenolol [Tenormin (beta rema)] 50 mg PO DAILY 02/20/13 Hydroxychloroquine [Plaquenil] 200 mg PO BIDCM 02/20/13 Ropinirole HCl [Requip] 2 mg PO QHS PRN PRN 02/20/13 Gabapentin 400 mg PO 5X/DAY 05/05/13 Cyclobenzaprine [Flexeril] 10 mg PO TID PRN PRN 08/24/13 Infliximab [Remicade] 5 mg IV QMONTH 08/24/13 Multivitamins,Therapeutic 1 tablet PO DAILY 08/24/13 [Multivitamin] Duloxetine Hcl [Cymbalta] 60 mg PO DAILY 05/10/15 Calcium Carbonate [Calcium] 600 mg PO BID 08/25/15 Levothyroxine [Synthroid] 50 mcg PO DAILY 01/23/16 Lansoprazole [Prevacid] 16 mg PO BID 08/21/16 Metformin HCl 500 mg PO DAILY 08/22/16 Citalopram [Celexa] 10 mg PO QHS 07/07/17 Oxycodone Myristate [Xtampza ER] 18 mg PO BID 07/07/17 Meloxicam 15 mg PO DAILY 09/19/17 Surgical History: cholecystectomy, hysterectomy, total knee arthroplasty - BL TKR., - - R Reverse Shoulder replacement. 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 Smoking Status: Never smoker Tobacco Use: Non-smoker Alcohol: None Drugs: None - *Family History Maternal History Items: No pertinent history Paternal History Items: Diabetes, Heart Disease Review of Systems Constitutional: Denies: Chills, Fever, Weight Change HEENT: Denies: Head Aches, Sinus Congestion, Sinus Drainage Cardiovascular: Denies: Chest Pain, Palpitations Respiratory: Denies: Cough, Shortness of breath at rest, Sputum production Gastrointestinal: Reports: Constipation - No BM for 8 days.. Denies: Abdominal Pain, Nausea, Vomiting Genitourinary: Denies: Dysuria Musculoskeletal: Denies: Joint Pain, Joint Tenderness Skin: Denies: Rash, Wounds Neurological: Denies: Numbness, Tingling, Focal weakness Psychiatric: Denies: Anxiety, Depression, Homicidal Ideations, Suicidal Ideations Hematologic/ Lymphatic: Denies: Easy Bruising, Easy Bleeding VTE Information - Inpt Only VTE Present on Admission: No VTE Mechan Device Prophylaxis: Knee High RACHANA Hose VTE Pharm Prophylaxis ordered?: Yes Patient Problems: Active and Suspected Problems Restless leg syndrome (Acute) - Physical Exam General: Alert, Oriented x3, Cooperative HEENT: Atraumatic, PERRLA, EOMI, Normocephalic Neck: Supple, No JVD, Negative Carotid Bruits Lungs: Clear to auscultation, Normal air movement Cardiovascular: Regular rate, No murmurs Abdomen: Bowel Sounds Present, Soft, Non Tender Extremities: No edema, Capillary Refill Less than 3 Seconds Skin: No rashes, No breakdown Musculoskeletal: No Tenderness to Palpation of Joints or Extremities, - - Drain from back incision. Neurological: Cranial nerves II-XII grossly intact Psych/Mental Status: Normal Affect, Appropriate Vital Signs Temp Pulse Resp BP Pulse Ox 97.6 F L 66 94 H 127/75 H 20 09/19/17 16:59 09/19/17 16:59 09/19/17 16:59 09/19/17 16:59 09/19/17 16:59 Oxygen Delivery Method Room Air Weight: 132.08 kg Body Mass Index (BMI) 55.0 Finger Stick Blood Glucose 164 Intake and Output for Last 24 Hours 09/17/17 09/18/17 09/19/17 23:59 23:59 23:59 Intake Total 240 / 240 Balance 240 / 240 Assessment/Plan All Active Problems Restless leg syndrome (Acute) Acute exacerbation of chronic low back pain (Acute) 71 year old female with below past medical history hospitalized for lumbar spinal surgery 09/13/[address] Aby Rosas, admitted to TCU with debility, here for rehabilitation, strengthening, prior to discharge home with family. Debility - PT/OT. Pain - Tylenol 1000MG Q8H PRN mild pain, Oxycontin 20MG BID, Oxycodone 5-10MG Q6H PRN severe pain thru 10/03/2017. Bowel - Miralax 17GM daily, Senna/colace 2 tablets BID, Dulcolax 10MG PO daily PRN, Magnesium Citrate 300ML PO x 1 dose, if no result, then Golytely 2 Liters PO x 1 dose, if no result, Soap suds enema. Pneumonia vaccination - Administer Prevnar 13 and/or Pneumovax 23 as necessary. DVT prophylaxis - Lovenox 40M SC daily. Hypertension - Atenolol 50MG daily. Calcium deficiency - Oscal D BID. Incision cellulitis - Keflex 1000MG Q12H thru 10/03/2017. Muscle spasm - Flexeril 10MG TID PRN. Depression - Duloxetine 60MG daily. Neuropathic pain - Gabapentin 400MG 4x/day. Rheumatoid Arthritis - Plaquenil 200MG BID. Hypothyroidism - Levothyroxine 50MCG daily. Insomnia - Melatonin 3MG QHS PRN. Skin irritation - Calmoseptine BID bilateral buttocks. Diabetes Mellitus II - Metformin XR 500MG daily. Nutrition - MVI daily. Tinea Corporis - Nystatin powder BID abdominal folds. Nausea - Zofran 4MG Q6H PRN. GERD - Pantoprazole 20MG BID. Restless Legs Syndrome - Mirapex 1MG QHS PRN.
--- NOTE | 2017-09-19 21:34 | HP.PCM_ITS ---
Problem List (1) Lumbar spinal stenosis Status: Chronic (2) Muscle spasm Status: Chronic (3) Constipation Status: Chronic (4) Depression Status: Chronic (5) Neuropathic pain Status: Chronic (6) Rheumatoid arthritis Status: Chronic (7) Insomnia Status: Chronic (8) Diabetes mellitus Status: Chronic (9) Nausea Status: Chronic (10) GERD (gastroesophageal reflux disease) Status: Chronic (11) Restless leg syndrome Status: Acute (12) Hypertension Status: Chronic Qualifiers: (13) Sleep apnea Status: Chronic History of Present Illness Date of Admission: 09/19/17 Chief Complaint: Here for rehabilitation, strengthening, prior to discharge home with family. The patient is a 71 year old Female with below past medical history underwent T10 to pelvis fusion surgery with Dr. Rosas on 09/13/2017 at [facility]. She has drain in place, she wears LSO brace when she is out of bed. She walks with walker, and gait belt. 09/19/2017 Admit to TCU for rehabilitation, strengthening, prior to discharge home with family. Past Medical History Past Medical History (Chronic Problems): Chronic Problems Morbid obesity (Chronic) Fibromyalgia (Chronic) IBS (irritable bowel syndrome) (Chronic) Lumbar spinal stenosis (Chronic) Muscle spasm (Chronic) Constipation (Chronic) Depression (Chronic) Neuropathic pain (Chronic) Rheumatoid arthritis (Chronic) Insomnia (Chronic) Diabetes mellitus (Chronic) Nausea (Chronic) GERD (gastroesophageal reflux disease) (Chronic) Sleep apnea (Chronic) Obstructive sleep apnea (Chronic) Peripheral neuropathy (Chronic) Hypothyroidism (Chronic) Chronic low back pain (Chronic) Psoriatic arthritis (Chronic) Type 2 diabetes mellitus (Chronic) Hypertension (Chronic) Allergies No Known Allergies Allergy (Verified 07/30/17 09:00) Home Medications: Ambulatory Orders Medication Instructions Recorded Atenolol [Tenormin (beta rema)] 50 mg PO DAILY 02/20/13 Hydroxychloroquine [Plaquenil] 200 mg PO BIDCM 02/20/13 Ropinirole HCl [Requip] 2 mg PO QHS PRN PRN 02/20/13 Gabapentin 400 mg PO 5X/DAY 05/05/13 Cyclobenzaprine [Flexeril] 10 mg PO TID PRN PRN 08/24/13 Infliximab [Remicade] 5 mg IV QMONTH 08/24/13 Multivitamins,Therapeutic 1 tablet PO DAILY 08/24/13 [Multivitamin] Duloxetine Hcl [Cymbalta] 60 mg PO DAILY 05/10/15 Calcium Carbonate [Calcium] 600 mg PO BID 08/25/15 Levothyroxine [Synthroid] 50 mcg PO DAILY 01/23/16 Lansoprazole [Prevacid] 16 mg PO BID 08/21/16 Metformin HCl 500 mg PO DAILY 08/22/16 Citalopram [Celexa] 10 mg PO QHS 07/07/17 Oxycodone Myristate [Xtampza ER] 18 mg PO BID 07/07/17 Meloxicam 15 mg PO DAILY 09/19/17 Surgical History: cholecystectomy, hysterectomy, total knee arthroplasty - BL TKR., - - R Reverse Shoulder replacement. 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 Smoking Status: Never smoker Tobacco Use: Non-smoker Alcohol: None Drugs: None - *Family History Maternal History Items: No pertinent history Paternal History Items: Diabetes, Heart Disease Review of Systems Constitutional: Denies: Chills, Fever, Weight Change HEENT: Denies: Head Aches, Sinus Congestion, Sinus Drainage Cardiovascular: Denies: Chest Pain, Palpitations Respiratory: Denies: Cough, Shortness of breath at rest, Sputum production Gastrointestinal: Reports: Constipation - No BM for 8 days.. Denies: Abdominal Pain, Nausea, Vomiting Genitourinary: Denies: Dysuria Musculoskeletal: Denies: Joint Pain, Joint Tenderness Skin: Denies: Rash, Wounds Neurological: Denies: Numbness, Tingling, Focal weakness Psychiatric: Denies: Anxiety, Depression, Homicidal Ideations, Suicidal Ideations Hematologic/ Lymphatic: Denies: Easy Bruising, Easy Bleeding VTE Information - Inpt Only VTE Present on Admission: No VTE Mechan Device Prophylaxis: Knee High RACHANA Hose VTE Pharm Prophylaxis ordered?: Yes Patient Problems: Active and Suspected Problems Restless leg syndrome (Acute) - Physical Exam General: Alert, Oriented x3, Cooperative HEENT: Atraumatic, PERRLA, EOMI, Normocephalic Neck: Supple, No JVD, Negative Carotid Bruits Lungs: Clear to auscultation, Normal air movement Cardiovascular: Regular rate, No murmurs Abdomen: Bowel Sounds Present, Soft, Non Tender Extremities: No edema, Capillary Refill Less than 3 Seconds Skin: No rashes, No breakdown Musculoskeletal: No Tenderness to Palpation of Joints or Extremities, - - Drain from back incision. Neurological: Cranial nerves II-XII grossly intact Psych/Mental Status: Normal Affect, Appropriate Vital Signs Temp Pulse Resp BP Pulse Ox 97.6 F L 66 94 H 127/75 H 20 09/19/17 16:59 09/19/17 16:59 09/19/17 16:59 09/19/17 16:59 09/19/17 16:59 Oxygen Delivery Method Room Air Weight: 132.08 kg Body Mass Index (BMI) 55.0 Finger Stick Blood Glucose 164 Intake and Output for Last 24 Hours 09/17/17 09/18/17 09/19/17 23:59 23:59 23:59 Intake Total 240 / 240 Balance 240 / 240 Assessment/Plan All Active Problems Restless leg syndrome (Acute) Acute exacerbation of chronic low back pain (Acute) 71 year old female with below past medical history hospitalized for lumbar spinal surgery 09/13/[address] Aby Rosas, admitted to TCU with debility, here for rehabilitation, strengthening, prior to discharge home with family. * Debility - PT/OT. * Pain - Tylenol 1000MG Q8H PRN mild pain, Oxycontin 20MG BID, Oxycodone 5-10MG Q6H PRN severe pain thru 10/03/2017. * Bowel - Miralax 17GM daily, Senna/colace 2 tablets BID, Dulcolax 10MG PO daily PRN, Magnesium Citrate 300ML PO x 1 dose, if no result, then Golytely 2 Liters PO x 1 dose, if no result, Soap suds enema. * Pneumonia vaccination - Administer Prevnar 13 and/or Pneumovax 23 as necessary. * DVT prophylaxis - Lovenox 40M SC daily. * Hypertension - Atenolol 50MG daily. * Calcium deficiency - Oscal D BID. * Incision cellulitis - Keflex 1000MG Q12H thru 10/03/2017. * Muscle spasm - Flexeril 10MG TID PRN. * Depression - Duloxetine 60MG daily. * Neuropathic pain - Gabapentin 400MG 4x/day. * Rheumatoid Arthritis - Plaquenil 200MG BID. * Hypothyroidism - Levothyroxine 50MCG daily. * Insomnia - Melatonin 3MG QHS PRN. * Skin irritation - Calmoseptine BID bilateral buttocks. * Diabetes Mellitus II - Metformin XR 500MG daily. * Nutrition - MVI daily. * Tinea Corporis - Nystatin powder BID abdominal folds. * Nausea - Zofran 4MG Q6H PRN. * GERD - Pantoprazole 20MG BID. * Restless Legs Syndrome - Mirapex 1MG QHS PRN.
[2017-09-19] MEDS: Menthol/Lanolin/Calamine/Znox 113 GM Tube 1 APPLIC TOPICAL (22:24)
[2017-09-20] MEDS: Menthol/Lanolin/Calamine/Znox 113 GM Tube 1 APPLIC TOPICAL ×2 (05:31→22:03)
[2017-09-20] MEDS: Atenolol 50 MG Tablet PO (05:33)
[2017-09-20] MEDS: Levothyroxine 50 MCG Tablet PO (05:33)
[2017-09-20] MEDS: Cephalexin 500 MG Capsule 1000 MG PO ×2 (05:33→17:44)
[2017-09-20] MEDS: Pantoprazole Sodium 20 MG Tablet PO ×2 (05:33→17:44)
[2017-09-20] MEDS: DULoxetine Hcl 30 MG Capsule 60 MG PO (05:33)
[2017-09-20] MEDS: Gabapentin 400 MG Capsule PO ×5 (05:33→22:02)
[2017-09-20] MEDS: Nystatin Powder 15gm Bottle 1 APPLIC TOPICAL ×2 (05:33→17:47)
[2017-09-20] MEDS: Enoxaparin 40 MG/0.4 ML Syringe SC (05:33)
[2017-09-20] MEDS: Senna/Docusate Sodium 1 Tablet 2 TABLET PO (05:36)
[2017-09-20] MEDS: Electrolyte Solution/Peg's 4000 ML 2000 ML PO (05:46)
[2017-09-20 06:34] LABS: Anion Gap 7 (5-15); BUN 11 mg/dL (7-18); BUN/Creat Ratio 19.4 RATIO (10-20); Calcium,Total 8.3 mg/dL (8.5-10.1); Chloride 103 mmol/L (98-107); Creatinine, Serum 0.57 mg/dL (0.55-1.02); EST Glomerular Filtration Rate 112 mL/min (>60); Est Glom Filt Rate - Afr Amer 135 mL/min (>60); Estimated Creatinine Clearance 38.94 ml/min; Glucose 96 mg/dL (74-106); Potassium 3.5 mmol/L (3.5-5.1); Sodium Level 141 mmol/L (136-145)
[2017-09-20 06:37] LABS: Hematocrit 29.9 % (37-47); Hemoglobin 9.4 g/dl (12.0-15.0); Mean Corp Hgb Conc 31.4 g/gl (32-36); Mean Corpuscular Hgb 28.9 pg (27.0-32.0); Mean Platelet Vol. 9.6 fl (6.2-12.0); Platelet Count 216 K/mm3 (150-450); RBC Distribution Width CV 15.1 % (11.6-14.6); Red Blood Count 3.25 M/mm3 (4.2-5.4)
[2017-09-20 06:38] LABS: Differential Indicated MANUAL DIFF; POSITIVE COUNT YES; POSITIVE DIFFERENTIAL NO; POSITIVE MORPHOLOGY YES
[2017-09-20 06:45] LABS: Eosinophil 7 % (0-5); Lymphocyte 22 % (19-41); Metamyelocyte 1 % (0-1); Monocyte 9 % (0-10); Neutrophil-Band 1 % (0-5); Neutrophil-Segmented 60 % (47-70); Total Cells Counted 100 (MANUAL DIFF)
[2017-09-20 06:47] LABS: Platelet Estimate ADEQUATE (ADEQ); Red Cell Morphology N CYTIC NORMAL (NORM C&C)
[2017-09-20 06:48] LABS: Absolute Lymphocyte Count 1.98 X10^3/ul (0.83-4.51); Absolute Neutrophil Count 5.5 X10^3/uL (2.0-7.7); Lymphocyte # 1.98 X10^3/ul (4.0); Neutrophil # 5.49 X10^3/uL (2.7-7.7); Polychromasia 1+
[2017-09-20 06:50] LABS: Bedside Glucose 110 mg/dL (70-110)
[2017-09-20] MEDS: Multivitamins,Therapeutic Tablet 1 TABLET PO (07:57)
[2017-09-20] MEDS: Hydroxychloroquine 200 MG Tablet PO ×2 (07:57→17:44)
[2017-09-20] MEDS: Calcium Carb/Vitamin D 1 TABLET Tablet PO ×2 (07:57→17:44)
[2017-09-20] MEDS: Iron Polysaccharide Complex 150 MG CAPSULE PO (09:43)
[2017-09-20] MEDS: Tuberculin,Purif.prot.deriv. 50 TU/ML Vial 5 ML ID (09:43)
--- NOTE | 2017-09-20 10:44 | NURSING ---
{Patient requesting a calorie controlled, carb control diet.
--- NOTE | 2017-09-20 11:41 | CASEMGMT ---
Insurance Clinical information faxed. Pending continued stay approval at this time. Auth#[id number] Arminda TRUONG, COMPOSITE LAYUP WORKER
--- NOTE | 2017-09-20 11:59 | CASEMGMT ---
Insurance Continued stay approved with next update due on 09/25/17 [id number] Arminda TRUONG, SUPERVISOR HOUSECLEANER
[2017-09-20] MEDS: Acetaminophen 500 MG Tablet 1000 MG PO (13:54)
--- NOTE | 2017-09-20 15:53 | CHAPLAIN ---
Type of Pastoral Visit _x__ Initial Visit ___ Follow-up Visit ___ On-call Visit ___ General Patient Visit ___ Spiritual Assessment ___ Family Conference ___ Bereavement ___ Rapid Response ___ Code Blue ___ Other (describe below) Pastoral Care Referral From _x__ Patient ___ Family ___ Nurse ___ Physician ___ Plant Operator/Shift Supervisor ___ Flight Communications Operator ___ Other (describe below) Sacrament/Intervention _x__ Active listening ___ Anointing ___ Church ___ Bereavement ___ Communion ___ Sharmila exploration ___ _x__ Life review _x__ Prayer ___ Reconciliation ___ Sacrament of Sick _x__ Supportive presence ___ Wedding ___ Other (describe below) Pastoral Comments discovered that this siding stapler has met and talked with this patient in her previous admissions; pt has had major surgery and reports knowing that this would be a tough road for her but a necessary one if she wanted to walk and function again; pt has some family but they are not all close by or accessible; pt welcomes future visits and prayer; pt does not have a zoroastrianism connection
[2017-09-21 04:54] VITALS: BP 138/52; PULSE 74; RESP 18; O2SAT 947
[2017-09-21] MEDS: Menthol/Lanolin/Calamine/Znox 113 GM Tube 1 APPLIC TOPICAL ×2 (04:56→21:29)
[2017-09-21] MEDS: Enoxaparin 40 MG/0.4 ML Syringe SC (04:56)
[2017-09-21] MEDS: Pantoprazole Sodium 20 MG Tablet PO ×2 (04:57→16:24)
[2017-09-21] MEDS: Cephalexin 500 MG Capsule 1000 MG PO ×2 (04:57→16:25)
[2017-09-21] MEDS: Gabapentin 400 MG Capsule PO ×5 (04:57→21:29)
[2017-09-21] MEDS: DULoxetine Hcl 30 MG Capsule 60 MG PO (04:57)
[2017-09-21] MEDS: Atenolol 50 MG Tablet PO (04:58)
[2017-09-21] MEDS: Levothyroxine 50 MCG Tablet PO (04:59)
[2017-09-21] MEDS: Nystatin Powder 15gm Bottle 1 APPLIC TOPICAL ×2 (05:00→16:25)
[2017-09-21 07:41] LABS: Bedside Glucose 109 mg/dL (70-110)
[2017-09-21] MEDS: Calcium Carb/Vitamin D 1 TABLET Tablet PO ×2 (08:07→16:24)
[2017-09-21] MEDS: Multivitamins,Therapeutic Tablet 1 TABLET PO (08:07)
[2017-09-21] MEDS: Hydroxychloroquine 200 MG Tablet PO ×2 (08:07→16:24)
[2017-09-21] MEDS: Iron Polysaccharide Complex 150 MG CAPSULE PO (08:08)
[2017-09-21] MEDS: oxyCODONE 5 MG Tablet PO ×2 (08:08→16:23)
[2017-09-21] MEDS: Acetaminophen 500 MG Tablet 1000 MG PO ×2 (08:11→16:25)
[2017-09-21 16:00] VITALS: BP 135/48; PULSE 71; RESP 16; TEMP 36; O2SAT 95
[2017-09-22] MEDS: oxyCODONE 5 MG Tablet PO ×2 (03:46→11:49)
[2017-09-22] MEDS: Pantoprazole Sodium 20 MG Tablet PO ×2 (05:46→17:27)
[2017-09-22] MEDS: DULoxetine Hcl 30 MG Capsule 60 MG PO (05:46)
[2017-09-22] MEDS: Levothyroxine 50 MCG Tablet PO (05:46)
[2017-09-22] MEDS: Cephalexin 500 MG Capsule 1000 MG PO ×2 (05:46→17:27)
[2017-09-22] MEDS: Atenolol 50 MG Tablet PO (05:46)
[2017-09-22] MEDS: Gabapentin 400 MG Capsule PO ×5 (05:46→19:36)
[2017-09-22] MEDS: Enoxaparin 40 MG/0.4 ML Syringe SC (05:47)
[2017-09-22] MEDS: Menthol/Lanolin/Calamine/Znox 113 GM Tube 1 APPLIC TOPICAL ×2 (05:47→19:36)
[2017-09-22] MEDS: Nystatin Powder 15gm Bottle 1 APPLIC TOPICAL ×2 (05:48→17:27)
[2017-09-22 07:11] LABS: Bedside Glucose 124 mg/dL (70-110)
[2017-09-22] MEDS: Iron Polysaccharide Complex 150 MG CAPSULE PO (08:08)
[2017-09-22] MEDS: Hydroxychloroquine 200 MG Tablet PO ×2 (08:08→17:27)
[2017-09-22] MEDS: Multivitamins,Therapeutic Tablet 1 TABLET PO (08:08)
[2017-09-22] MEDS: Calcium Carb/Vitamin D 1 TABLET Tablet PO ×2 (08:08→17:27)
[2017-09-22 16:00] VITALS: BP 128/57; PULSE 84; RESP 18; TEMP 37.7; O2SAT 90
--- NOTE | 2017-09-27 01:16 | PCM.PN.RX ---
<Martin Sotelo D - Last Filed: 09/27/17 01:16> Progress Note - Pharmacy Subjective: TCU Admission Objective: Allergies No Known Allergies Allergy (Verified 07/30/17 09:00) Current Medications Generic Name Dose Route Start Last Admin Trade Name Freq PRN Reason Stop Dose Admin Acetaminophen 1,000 mg 09/19/17 21:47 09/21/17 16:25 Tylenol PO 1,000 mg Q8H PRN PRN Administration MILD PAIN (1-06/29) Atenolol 50 mg 09/20/17 06:00 09/22/17 05:46 Tenormin (Beta Dain) PO 50 mg DAILY [facility] Administration Bisacodyl 10 mg 09/19/17 21:47 Dulcolax PO DAILY PRN Constipation Calamine/Phenol 1 applic 09/19/17 22:00 09/22/17 19:36 Calmoseptine Ointment TOPICAL 1 applicatio BID@0600,2200 [facility] Administration Protocol Calcium/Vitamin D 1 tablet 09/20/17 08:00 09/22/17 17:27 Os-Lito 500mg + D PO 1 tablet BIDCM [facility] Administration Cephalexin 1,000 mg 09/19/17 18:00 09/22/17 17:27 Keflex PO 10/03/17 18:01 1,000 mg Q12 [facility]COIS Administration Cyclobenzaprine HCl 10 mg 09/19/17 17:21 09/22/17 17:27 Flexeril PO 10 mg TID PRN PRN Administration MUSCLE SPASM Duloxetine HCl 60 mg 09/20/17 06:00 09/22/17 05:46 Cymbalta PO 60 mg DAILY [facility] Administration Enoxaparin Sodium 40 mg 09/20/17 06:00 09/22/17 05:47 Lovenox SC 40 mg DAILY@0600 [facility] Administration Gabapentin 400 mg 09/19/17 18:00 09/22/17 19:36 Neurontin PO 400 mg 5X/DAY [facility]COIS Administration Hydroxychloroquine Sulfate 200 mg 09/20/17 08:00 09/22/17 17:27 Plaquenil PO 200 mg BIDCM [facility] Administration Levothyroxine Sodium 50 mcg 09/20/17 06:00 09/22/17 05:46 Synthroid PO 50 mcg DAILY@0600 [facility] Administration Melatonin 3 mg 09/19/17 17:25 Melatonin PO QHS PRN INSOMNIA Metformin HCl 500 mg 09/20/17 08:00 09/22/17 08:08 [facility] Multivitamins 1 tablet 09/20/17 08:00 09/22/17 08:08 Multivitamin PO 1 tablet DAILYCM [facility] Administration Nystatin 1 applic 09/20/17 06:00 09/22/17 17:27 Mycostatin Powder TOPICAL 1 applicatio BID [facility] Administration Protocol Ondansetron HCl 4 mg 09/19/17 17:32 Zofran Odt PO Q6H PRN PRN NAUSEA Oxycodone HCl 5 - 10 mg 09/19/17 17:33 09/22/17 11:49 Oxyir PO 10/03/17 17:34 5 mg Q6H PRN PRN Administration SEVERE PAIN (6-10/10) Oxycodone HCl 20 mg 09/19/17 18:00 09/22/17 17:27 Oxycontin PO 20 mg BID [facility] Administration Pantoprazole Sodium 20 mg 09/20/17 06:00 09/22/17 17:27 Protonix PO 20 mg BID [facility] Administration Polyethylene Glycol 17 gm 09/20/17 06:00 09/22/17 05:47 Miralax PO Not Given DAILY [facility] Polysaccharide Iron Complex 150 mg 09/20/17 08:15 09/22/17 08:08 [facility]rex 150 [facility] Administration Pramipexole Dihydrochloride 1 mg 09/19/17 22:00 Mirapex PO QHS PRN RESTLESS LEGS Senna/Docusate Sodium 2 tablet 09/20/17 06:00 09/22/17 17:25 Senokot-S, [place]-Colace PO Not Given BID [facility] Sodium Chloride/Electrolytes 2,000 ml 09/19/17 17:28 09/20/17 05:46 Nulytely PO 2,000 ml X1 PRN Administration Constipation Tuberculin PPD 5 tu 09/27/17 10:00 Tubersol, Aplisol, Ppd ID 09/27/17 10:01 X1 ONE Problem List Lumbar spinal stenosis (Chronic) Muscle spasm (Chronic) Constipation (Chronic) Depression (Chronic) Neuropathic pain (Chronic) Rheumatoid arthritis (Chronic) Insomnia (Chronic) Diabetes mellitus (Chronic) Nausea (Chronic) GERD (gastroesophageal reflux disease) (Chronic) Restless leg syndrome (Acute) Sleep apnea (Chronic) Vital Signs Temp Pulse Resp BP Pulse Ox 99.8 F H 84 18 128/57 H 90 09/22/17 16:00 09/22/17 16:00 09/22/17 16:00 09/22/17 16:00 09/22/17 16:00 Oxygen Delivery Method Room Air Weight: 132.08 kg Body Mass Index (BMI) 55.0 Finger Stick Blood Glucose 164 Sodium 141 mmol/L (136-145) 09/20/17 05:10 Potassium 3.5 mmol/L (3.5-5.1) 09/20/17 05:10 Chloride 103 mmol/L (98-107) 09/20/17 05:10 Carbon Dioxide 31.0 mmol/L (21.0-32.0) 09/20/17 05:10 Anion Gap 7 (5-15) 09/20/17 05:10 BUN 11 mg/dL (7-18) 09/20/17 05:10 Creatinine 0.57 mg/dL (0.55-1.02) 09/20/17 05:10 Est GFR (MDRD) Af Amer 135 mL/min (>60) 09/20/17 05:10 Est GFR (MDRD) Non-Af 112 mL/min (>60) 09/20/17 05:10 BUN/Creatinine Ratio 19.4 RATIO (10-20) 09/20/17 05:10 Glucose 96 mg/dL (74-106) 09/20/17 05:10 Assessment/Plan: 1) Pain APAP for mild pain, oxyIR for severe pain, Oxycontin scheduled, hydroxychloroquine, gabapentin, cyclobenzaprine for spasm. Continue to monitor prn medication use, daily pain scores. 2) HTN Atenolol daily. Continue to monitor BP/HR. 3) Hypothyroidism Levothyroxine daily. Continue to monitor s/s hyper/hypothyroidism. 4) DM2 Metformin XR daily. Continue to monitor BGT, renal function. 5) ID Cephalexin twice daily. Continue to monitor s/s infection. 6) RLS Pramipexole at HS prn. Continue to monitor prn medication use, for restless legs. 7) GI Pantoprazole twice daily, ondansetron prn. Continue to monitor s/s GI distress, prn medication use. 8) Derm Calmoseptine, nystatin powder topically. Continue to monitor clinically. 9) Nutrition Multivitamin, Fe, Ca/D. Continue to monitor clinically. 10) DVT PPx Enoxaparin daily. Continue to monitor s/s bleeding/clot. 11) Insomnia Melatonin at HS prn. Continue to monitor prn medication use, for insomnia. Psychotropic Medications: 12) Depression Duloxetine daily. Continue to monitor s/s depression. Unnecessary Medications: None Bowel Regimen: 13) Senna/s, PEG, prn bisacodyl. Continue to monitor prn medication use, for constipation/diarrhea. Date of Note:: 09/27/17 - Provider Comments Provider responsibility: Provider responsible to enter orders to implement recommendations <Mello Brantley Chi - Last Filed: 09/30/17 18:20> Progress Note - Pharmacy Subjective: [] Objective: Allergies No Known Allergies Allergy (Verified 07/30/17 09:00) Current Medications Generic Name Dose Route Start Last Admin Trade Name Freq PRN Reason Stop Dose Admin Acetaminophen 1,000 mg 09/19/17 21:47 09/21/17 16:25 Tylenol PO 1,000 mg Q8H PRN PRN Administration MILD PAIN (1-3/10) Atenolol 50 mg 09/20/17 06:00 09/30/17 06:00 Tenormin (Beta Dain) PO 50 mg DAILY [facility]COIS Administration Azithromycin 250 mg 09/29/17 06:00 09/30/17 06:00 Zithromax PO 10/02/17 06:01 250 mg DAILY [facility]COIS Administration Bisacodyl 10 mg 09/19/17 21:47 Dulcolax PO DAILY PRN Constipation Calamine/Phenol 1 applic 09/19/17 22:00 09/30/17 06:00 Calmoseptine Ointment TOPICAL 1 applicatio BID@0600,2200 FR[facility]COIS Administration Protocol Calcium Carbonate 500 mg 09/29/17 08:35 Tums PO Q4H PRN PRN Indigestion Calcium/Vitamin D 1 tablet 09/20/17 08:00 09/30/17 08:00 Os-Lito 500mg + D PO 1 tablet BIDCM [facility] Administration Cefdinir 300 mg 09/28/17 18:00 09/30/17 17:44 Omnicef [Equiv] PO 10/05/17 06:01 300 mg BID [facility] Administration Cyclobenzaprine HCl 10 mg 09/19/17 17:21 09/22/17 17:27 Flexeril PO 10 mg TID PRN PRN Administration MUSCLE SPASM Duloxetine HCl 60 mg 09/20/17 06:00 09/30/17 06:00 Cymbalta PO 60 mg DAILY [facility] Administration Enoxaparin Sodium 40 mg 09/20/17 06:00 09/30/17 06:00 Lovenox SC 40 mg DAILY@0600 [facility] Administration Gabapentin 400 mg 09/19/17 18:00 09/30/17 17:44 Neurontin PO 400 mg 5X/DAY [facility] Administration Hydroxychloroquine Sulfate 200 mg 09/20/17 08:00 09/30/17 17:44 [facility] Administration Levothyroxine Sodium 50 mcg 09/20/17 06:00 09/30/17 06:00 Synthroid PO 50 mcg DAILY@0600 [facility] Administration Melatonin 3 mg 09/19/17 17:25 Melatonin PO QHS PRN INSOMNIA Metformin HCl 500 mg 09/20/17 08:00 09/30/17 08:00 [facility] Administration Multivitamins 1 tablet 09/20/17 08:00 09/30/17 08:00 [facility] Administration Nystatin 1 applic 09/30/17 22:00 Mycostatin Powder TOPICAL 0600,2200 [facility] Protocol Ondansetron HCl 4 mg 09/19/17 17:32 Zofran Odt PO Q6H PRN PRN NAUSEA Pantoprazole Sodium 20 mg 09/20/17 06:00 09/30/17 17:45 Protonix PO 20 mg BID [facility] Administration Polyethylene Glycol 17 gm 09/20/17 06:00 09/30/17 13:54 Miralax PO Not Given DAILY [facility] Polysaccharide Iron Complex 150 mg 09/20/17 08:15 09/30/17 08:00 Ferrex 150 [facility] Administration Pramipexole Dihydrochloride 1 mg 09/19/17 22:00 Mirapex PO QHS PRN RESTLESS LEGS Senna/Docusate Sodium 2 tablet 09/20/17 06:00 09/30/17 13:57 Senokot-S, [place]-Colace PO Not Given BID [facility] Sodium Chloride/Electrolytes 2,000 ml 09/19/17 17:28 09/20/17 05:46 Nulytely PO 2,000 ml X1 PRN Administration Constipation Problem List Lumbar spinal stenosis (Chronic) Muscle spasm (Chronic) Constipation (Chronic) Depression (Chronic) Neuropathic pain (Chronic) Rheumatoid arthritis (Chronic) Insomnia (Chronic) Diabetes mellitus (Chronic) Nausea (Chronic) GERD (gastroesophageal reflux disease) (Chronic) Restless leg syndrome (Acute) Sleep apnea (Chronic) Vital Signs Temp Pulse Resp BP Pulse Ox 98.2 F 64 20 H 153/64 H 99 09/30/17 16:00 09/30/17 16:00 09/30/17 16:00 09/30/17 16:00 09/30/17 16:00 Oxygen Flow Rate (L/min) 2 Oxygen Delivery Method Nasal Cannula Weight: 132.08 kg Body Mass Index (BMI) 55.0 Finger Stick Blood Glucose 164 Sodium 141 mmol/L (136-145) 09/20/17 05:10 Potassium 3.5 mmol/L (3.5-5.1) 09/20/17 05:10 Chloride 103 mmol/L (98-107) 09/20/17 05:10 Carbon Dioxide 31.0 mmol/L (21.0-32.0) 09/20/17 05:10 Anion Gap 7 (5-15) 09/20/17 05:10 BUN 11 mg/dL (7-18) 09/20/17 05:10 Creatinine 0.57 mg/dL (0.55-1.02) 09/20/17 05:10 Est GFR (MDRD) Af Amer 135 mL/min (>60) 09/20/17 05:10 Est GFR (MDRD) Non-Af 112 mL/min (>60) 09/20/17 05:10 BUN/Creatinine Ratio 19.4 RATIO (10-20) 09/20/17 05:10 Glucose 96 mg/dL (74-106) 09/20/17 05:10 Assessment/Plan: Psychotropic Medications: Unnecessary Medications: Bowel Regimen: - Provider Comments Provider responsibility: Provider responsible to enter orders to implement recommendations Provider Comments to Recommendations by Pharmacy: Agree
--- NOTE | 2017-09-27 01:24 | PHA.CONS_ITS ---
<Martin Sotelo D - Last Filed: 09/27/17 01:16> Progress Note - Pharmacy Subjective: TCU Admission Objective: Allergies No Known Allergies Allergy (Verified 07/30/17 09:00) Current Medications Generic Name Dose Route Start Last Admin Trade Name Freq PRN Reason Stop Dose Admin Acetaminophen 1,000 mg 09/19/17 21:47 09/21/17 16:25 Tylenol PO 1,000 mg Q8H PRN PRN Administration MILD PAIN (1-06/29) Atenolol 50 mg 09/20/17 06:00 09/22/17 05:46 Tenormin (Beta Dain) PO 50 mg DAILY [facility] Administration Bisacodyl 10 mg 09/19/17 21:47 Dulcolax PO DAILY PRN Constipation Calamine/Phenol 1 applic 09/19/17 22:00 09/22/17 19:36 Calmoseptine Ointment TOPICAL 1 applicatio BID@0600,2200 [facility]CO[facility] Administration Protocol Calcium/Vitamin D 1 tablet 09/20/17 08:00 09/22/17 17:27 Os-Lito 500mg + D PO 1 tablet BIDCM [facility] Administration Cephalexin 1,000 mg 09/19/17 18:00 09/22/17 17:27 Keflex PO 10/03/17 18:01 1,000 mg Q12 [facility]CO[facility] Administration Cyclobenzaprine HCl 10 mg 09/19/17 17:21 09/22/17 17:27 Flexeril PO 10 mg TID PRN PRN Administration MUSCLE SPASM Duloxetine HCl 60 mg 09/20/17 06:00 09/22/17 05:46 Cymbalta PO 60 mg DAILY [facility] Administration Enoxaparin Sodium 40 mg 09/20/17 06:00 09/22/17 05:47 Lovenox SC 40 mg DAILY@0600 [facility]CO[facility] Administration Gabapentin 400 mg 09/19/17 18:00 09/22/17 19:36 Neurontin PO 400 mg 5X/DAY [facility] Administration Hydroxychloroquine Sulfate 200 mg 09/20/17 08:00 09/22/17 17:27 Plaquenil PO 200 mg BIDCM [facility] Administration Levothyroxine Sodium 50 mcg 09/20/17 06:00 09/22/17 05:46 Synthroid PO 50 mcg DAILY@0600 [facility] Administration Melatonin 3 mg 09/19/17 17:25 Melatonin PO QHS PRN INSOMNIA Metformin HCl 500 mg 09/20/17 08:00 09/22/17 08:08 [facility] Administration Multivitamins 1 tablet 09/20/17 08:00 09/22/17 08:08 Multivitamin PO 1 tablet DAILYCM [facility] Administration Nystatin 1 applic 09/20/17 06:00 09/22/17 17:27 Mycostatin Powder TOPICAL 1 applicatio BID [facility] Administration Protocol Ondansetron HCl 4 mg 09/19/17 17:32 Zofran Odt PO Q6H PRN PRN NAUSEA Oxycodone HCl 5 - 10 mg 09/19/17 17:33 09/22/17 11:49 Oxyir PO 10/03/17 17:34 5 mg Q6H PRN PRN Administration SEVERE PAIN (6-10/10) Oxycodone HCl 20 mg 09/19/17 18:00 09/22/17 17:27 Oxycontin PO 20 mg BID [facility] Administration Pantoprazole Sodium 20 mg 09/20/17 06:00 09/22/17 17:27 Protonix PO 20 mg BID [facility] Administration Polyethylene Glycol 17 gm 09/20/17 06:00 09/22/17 05:47 Miralax PO Not Given DAILY [facility] Polysaccharide Iron Complex 150 mg 09/20/17 08:15 09/22/17 08:08 Ferrex 150 [facility] Administration Pramipexole Dihydrochloride 1 mg 09/19/17 22:00 Mirapex PO QHS PRN RESTLESS LEGS Senna/Docusate Sodium 2 tablet 09/20/17 06:00 09/22/17 17:25 Senokot-S, [place]-Colace PO Not Given BID [facility] Sodium Chloride/Electrolytes 2,000 ml 09/19/17 17:28 09/20/17 05:46 Nulytely PO 2,000 ml X1 PRN Administration Constipation Tuberculin PPD 5 tu 09/27/17 10:00 Tubersol, Aplisol, Ppd ID 09/27/17 10:01 X1 ONE Problem List Lumbar spinal stenosis (Chronic) Muscle spasm (Chronic) Constipation (Chronic) Depression (Chronic) Neuropathic pain (Chronic) Rheumatoid arthritis (Chronic) Insomnia (Chronic) Diabetes mellitus (Chronic) Nausea (Chronic) GERD (gastroesophageal reflux disease) (Chronic) Restless leg syndrome (Acute) Sleep apnea (Chronic) Vital Signs Temp Pulse Resp BP Pulse Ox 99.8 F H 84 18 128/57 H 90 09/22/17 16:00 09/22/17 16:00 09/22/17 16:00 09/22/17 16:00 09/22/17 16:00 Oxygen Delivery Method Room Air Weight: 132.08 kg Body Mass Index (BMI) 55.0 Finger Stick Blood Glucose 164 Sodium 141 mmol/L (136-145) 09/20/17 05:10 Potassium 3.5 mmol/L (3.5-5.1) 09/20/17 05:10 Chloride 103 mmol/L (98-107) 09/20/17 05:10 Carbon Dioxide 31.0 mmol/L (21.0-32.0) 09/20/17 05:10 Anion Gap 7 (5-15) 09/20/17 05:10 BUN 11 mg/dL (7-18) 09/20/17 05:10 Creatinine 0.57 mg/dL (0.55-1.02) 09/20/17 05:10 Est GFR (MDRD) Af Amer 135 mL/min (>60) 09/20/17 05:10 Est GFR (MDRD) Non-Af 112 mL/min (>60) 09/20/17 05:10 BUN/Creatinine Ratio 19.4 RATIO (10-20) 09/20/17 05:10 Glucose 96 mg/dL (74-106) 09/20/17 05:10 Assessment/Plan: 1) Pain APAP for mild pain, oxyIR for severe pain, Oxycontin scheduled, hydroxychloroquine, gabapentin, cyclobenzaprine for spasm. Continue to monitor prn medication use, daily pain scores. 2) HTN Atenolol daily. Continue to monitor BP/HR. 3) Hypothyroidism Levothyroxine daily. Continue to monitor s/s hyper/hypothyroidism. 4) DM2 Metformin XR daily. Continue to monitor BGT, renal function. 5) ID Cephalexin twice daily. Continue to monitor s/s infection. 6) RLS Pramipexole at HS prn. Continue to monitor prn medication use, for restless legs. 7) GI Pantoprazole twice daily, ondansetron prn. Continue to monitor s/s GI distress, prn medication use. 8) Derm Calmoseptine, nystatin powder topically. Continue to monitor clinically. 9) Nutrition Multivitamin, Fe, Ca/D. Continue to monitor clinically. 10) DVT PPx Enoxaparin daily. Continue to monitor s/s bleeding/clot. 11) Insomnia Melatonin at HS prn. Continue to monitor prn medication use, for insomnia. Psychotropic Medications: 12) Depression Duloxetine daily. Continue to monitor s/s depression. Unnecessary Medications: None Bowel Regimen: 13) Senna/s, PEG, prn bisacodyl. Continue to monitor prn medication use, for constipation/diarrhea. Date of Note:: 09/27/17 - Provider Comments Provider responsibility: Provider responsible to enter orders to implement recommendations <Mello Brantley Chi - Last Filed: 09/30/17 18:20> Progress Note - Pharmacy Subjective: [] Objective: Allergies No Known Allergies Allergy (Verified 07/30/17 09:00) Current Medications Generic Name Dose Route Start Last Admin Trade Name Freq PRN Reason Stop Dose Admin Acetaminophen 1,000 mg 09/19/17 21:47 09/21/17 16:25 Tylenol PO 1,000 mg Q8H PRN PRN Administration MILD PAIN (1-3/10) Atenolol 50 mg 09/20/17 06:00 09/30/17 06:00 Tenormin (Beta Dain) PO 50 mg DAILY [facility] Administration Azithromycin 250 mg 09/29/17 06:00 09/30/17 06:00 Zithromax PO 10/02/17 06:01 250 mg DAILY [facility] Administration Bisacodyl 10 mg 09/19/17 21:47 Dulcolax PO DAILY PRN Constipation Calamine/Phenol 1 applic 09/19/17 22:00 09/30/17 06:00 Calmoseptine Ointment TOPICAL 1 applicatio BID@0600,2200 [facility] Administration Protocol Calcium Carbonate 500 mg 09/29/17 08:35 Tums PO Q4H PRN PRN Indigestion Calcium/Vitamin D 1 tablet 09/20/17 08:00 09/30/17 08:00 Os-Lito 500mg + D PO 1 tablet BIDCM [facility] Administration Cefdinir 300 mg 09/28/17 18:00 09/30/17 17:44 Omnicef [Equiv] PO 10/05/17 06:01 300 mg BID [facility] Administration Cyclobenzaprine HCl 10 mg 09/19/17 17:21 09/22/17 17:27 Flexeril PO 10 mg TID PRN PRN Administration MUSCLE SPASM Duloxetine HCl 60 mg 09/20/17 06:00 09/30/17 06:00 Cymbalta PO 60 mg DAILY [facility] Administration Enoxaparin Sodium 40 mg 09/20/17 06:00 09/30/17 06:00 Lovenox SC 40 mg DAILY@0600 [facility] Administration Gabapentin 400 mg 09/19/17 18:00 09/30/17 17:44 Neurontin PO 400 mg 5X/DAY [facility] Administration Hydroxychloroquine Sulfate 200 mg 09/20/17 08:00 09/30/17 17:44 [facility] Administration Levothyroxine Sodium 50 mcg 09/20/17 06:00 09/30/17 06:00 Synthroid PO 50 mcg DAILY@0600 [facility] Administration Melatonin 3 mg 09/19/17 17:25 Melatonin PO QHS PRN INSOMNIA Metformin HCl 500 mg 09/20/17 08:00 09/30/17 08:00 [facility] Administration Multivitamins 1 tablet 09/20/17 08:00 09/30/17 08:00 [facility]amin [facility] Administration Nystatin 1 applic 09/30/17 22:00 Mycostatin Powder TOPICAL 0600,2200 [facility] Protocol Ondansetron HCl 4 mg 09/19/17 17:32 Zofran Odt PO Q6H PRN PRN NAUSEA Pantoprazole Sodium 20 mg 09/20/17 06:00 09/30/17 17:45 Protonix PO 20 mg BID [facility] Administration Polyethylene Glycol 17 gm 09/20/17 06:00 09/30/17 13:54 Miralax PO Not Given DAILY [facility] Polysaccharide Iron Complex 150 mg 09/20/17 08:15 09/30/17 08:00 Ferrex 150 [facility] Administration Pramipexole Dihydrochloride 1 mg 09/19/17 22:00 Mirapex PO QHS PRN RESTLESS LEGS Senna/Docusate Sodium 2 tablet 09/20/17 06:00 09/30/17 13:57 Senokot-S, [place]-Colace PO Not Given BID [facility] Sodium Chloride/Electrolytes 2,000 ml 09/19/17 17:28 09/20/17 05:46 Nulytely PO 2,000 ml X1 PRN Administration Constipation Problem List Lumbar spinal stenosis (Chronic) Muscle spasm (Chronic) Constipation (Chronic) Depression (Chronic) Neuropathic pain (Chronic) Rheumatoid arthritis (Chronic) Insomnia (Chronic) Diabetes mellitus (Chronic) Nausea (Chronic) GERD (gastroesophageal reflux disease) (Chronic) Restless leg syndrome (Acute) Sleep apnea (Chronic) Vital Signs Temp Pulse Resp BP Pulse Ox 98.2 F 64 20 H 153/64 H 99 09/30/17 16:00 09/30/17 16:00 09/30/17 16:00 09/30/17 16:00 09/30/17 16:00 Oxygen Flow Rate (L/min) 2 Oxygen Delivery Method Nasal Cannula Weight: 132.08 kg Body Mass Index (BMI) 55.0 Finger Stick Blood Glucose 164 Sodium 141 mmol/L (136-145) 09/20/17 05:10 Potassium 3.5 mmol/L (3.5-5.1) 09/20/17 05:10 Chloride 103 mmol/L (98-107) 09/20/17 05:10 Carbon Dioxide 31.0 mmol/L (21.0-32.0) 09/20/17 05:10 Anion Gap 7 (5-15) 09/20/17 05:10 BUN 11 mg/dL (7-18) 09/20/17 05:10 Creatinine 0.57 mg/dL (0.55-1.02) 09/20/17 05:10 Est GFR (MDRD) Af Amer 135 mL/min (>60) 09/20/17 05:10 Est GFR (MDRD) Non-Af 112 mL/min (>60) 09/20/17 05:10 BUN/Creatinine Ratio 19.4 RATIO (10-20) 09/20/17 05:10 Glucose 96 mg/dL (74-106) 09/20/17 05:10 Assessment/Plan: Psychotropic Medications: Unnecessary Medications: Bowel Regimen: - Provider Comments Provider responsibility: Provider responsible to enter orders to implement recommendations Provider Comments to Recommendations by Pharmacy: Agree
--- NOTE | 2017-09-28 14:25 | RAD_ITS ---
STUDY: X-RAY CHEST REASON FOR EXAM: Female, 71 years old. Shortness of breath and cough TECHNIQUE: 2 views of the chest were obtained COMPARISON: August 23, 2014 chest radiograph FINDINGS: Cardiac size is enlarged. Mild perihilar streaky opacities. Right-sided humeral prosthesis. Degenerative changes in the thoracic spine. Multiple compression deformities of the thoracic vertebrae possibly chronic. Prior fusion at the thoracolumbar region. IMPRESSION: Cardiomegaly with small pulmonary vascular congestion. No evidence for focal airspace disease. No pneumothorax or pleural effusion. Electronically Signed: Trevor Field, at 15:01 EDT Tel , Service support , RAD/Chest PA and Lateral
[2017-09-30] MEDS: Atenolol 50 MG Tablet PO (06:00)
[2017-09-30] MEDS: Azithromycin 250 MG Tablet PO (06:00)
[2017-09-30] MEDS: Menthol/Lanolin/Calamine/Znox 113 GM Tube 1 APPLIC TOPICAL ×2 (06:00→20:21)
[2017-09-30] MEDS: Cefdinir 300 MG Capsule PO ×2 (06:00→17:44)
[2017-09-30] MEDS: Enoxaparin 40 MG/0.4 ML Syringe SC (06:00)
[2017-09-30] MEDS: Pantoprazole Sodium 20 MG Tablet PO ×2 (06:00→17:45)
[2017-09-30] MEDS: DULoxetine Hcl 30 MG Capsule 60 MG PO (06:00)
[2017-09-30] MEDS: Levothyroxine 50 MCG Tablet PO (06:00)
[2017-09-30] MEDS: Gabapentin 400 MG Capsule PO ×4 (06:00→20:31)
[2017-09-30] MEDS: Hydroxychloroquine 200 MG Tablet PO ×2 (08:00→17:44)
[2017-09-30] MEDS: Multivitamins,Therapeutic Tablet 1 TABLET PO (08:00)
[2017-09-30] MEDS: Iron Polysaccharide Complex 150 MG CAPSULE PO (08:00)
[2017-09-30] MEDS: Calcium Carb/Vitamin D 1 TABLET Tablet PO (08:00)
[2017-09-30] MEDS: oxyCODONE 5 MG Tablet PO ×3 (08:10→20:26)
--- NOTE | 2017-09-30 15:25 | CHAPLAIN ---
Type of Pastoral Visit ___ Initial Visit _x__ Follow-up Visit ___ On-call Visit ___ General Patient Visit ___ Spiritual Assessment ___ Family Conference ___ Bereavement ___ Rapid Response ___ Code Blue ___ Other (describe below) Pastoral Care Referral From _x__ Patient ___ Family ___ Nurse ___ Physician ___ [facility] ___ Outside Machinist ___ Other (describe below) Sacrament/Intervention _x__ Active listening ___ Anointing ___ Restoration ___ Bereavement ___ Communion ___ Sharmila exploration ___ ___ Life review _x__ Prayer ___ Reconciliation ___ Sacrament of Sick ___ Supportive presence ___ Wedding ___ Other (describe below) Pastoral Comments patient tells of good appointment for surgical follow up and how this has been encouraging news for her
[2017-09-30] MEDS: Nystatin Powder 15gm Bottle 1 APPLIC TOPICAL ×2 (15:39→20:24)
--- NOTE | 2017-09-30 15:59 | CASEMGMT ---
Insurance Continued stay approved with next update due on 10/03/17. Arminda TRUONG, AIRPORT MAINTENANCE LABORER
[2017-09-30 16:00] VITALS: BP 153/64; PULSE 64; RESP 20; TEMP 36.8; O2SAT 99
[2017-10-01] MEDS: Menthol/Lanolin/Calamine/Znox 113 GM Tube 1 APPLIC TOPICAL ×2 (06:21→20:54)
[2017-10-01] MEDS: Nystatin Powder 15gm Bottle 1 APPLIC TOPICAL ×2 (06:22→20:53)
[2017-10-01] MEDS: Atenolol 50 MG Tablet PO (06:26)
[2017-10-01] MEDS: Cefdinir 300 MG Capsule PO ×2 (06:26→18:06)
[2017-10-01] MEDS: Levothyroxine 50 MCG Tablet PO (06:26)
[2017-10-01] MEDS: Pantoprazole Sodium 20 MG Tablet PO ×2 (06:26→18:05)
[2017-10-01] MEDS: Gabapentin 400 MG Capsule PO ×5 (06:26→20:53)
[2017-10-01] MEDS: Azithromycin 250 MG Tablet PO (06:27)
[2017-10-01] MEDS: Senna/Docusate Sodium 1 Tablet 2 TABLET PO ×2 (06:27→18:05)
[2017-10-01] MEDS: DULoxetine Hcl 30 MG Capsule 60 MG PO (06:28)
[2017-10-01] MEDS: Enoxaparin 40 MG/0.4 ML Syringe SC (06:30)
[2017-10-01 06:55] LABS: Bedside Glucose 119 mg/dL (70-110)
[2017-10-01 07:35] LABS: Absolute Neutrophil Count 3.8 X10^3/uL (2.0-7.7); Basophil# 0.05 X10^3/uL; Basophil% 0.8 % (0-1); Eosinophil# 0.63 X10^3/uL; Eosinophils% 9.8 % (0-5); Hematocrit 32.6 % (37-47); Hemoglobin 9.9 g/dl (12.0-15.0); Lymphocyte % 18.8 % (19-41); Mean Corp Hgb Conc 30.4 g/gl (32-36); Mean Corpuscular Hgb 28.7 pg (27.0-32.0); Mean Corpuscular Volume 94.5 fL (81-99); Mean Platelet Vol. 8.9 fl (6.2-12.0); Monocyte# 0.67 X10^3/uL; Monocyte% 10.5 % (0-10); Neutrophil # 3.83 X10^3/uL (2.7-7.7); Neutrophil % 59.8 % (47-70); Platelet Count 344 K/mm3 (150-450); RBC Distribution Width CV 15.8 % (11.6-14.6); RBC Distribution Width SD 53.5 fl (35.1-43.9); Red Blood Count 3.45 M/mm3 (4.2-5.4); White Blood Count 6.4 K/mm3 (4.4-11.0)
[2017-10-01 07:38] LABS: POSITIVE COUNT NO; POSITIVE DIFFERENTIAL NO; POSITIVE MORPHOLOGY NO
[2017-10-01 07:45] LABS: Anion Gap 5 (5-15); BUN 8 mg/dL (7-18); BUN/Creat Ratio 12.1 RATIO (10-20); Calcium,Total 8.7 mg/dL (8.5-10.1); Chloride 101 mmol/L (98-107); Creatinine, Serum 0.66 mg/dL (0.55-1.02); EST Glomerular Filtration Rate 93 mL/min (>60); Est Glom Filt Rate - Afr Amer 113 mL/min (>60); Estimated Creatinine Clearance 38.94 ml/min; Glucose 100 mg/dL (74-106); Potassium 4.1 mmol/L (3.5-5.1); Sodium Level 139 mmol/L (136-145)
[2017-10-01] MEDS: Iron Polysaccharide Complex 150 MG CAPSULE PO (09:46)
[2017-10-01] MEDS: Hydroxychloroquine 200 MG Tablet PO ×2 (09:46→18:05)
[2017-10-01] MEDS: Multivitamins,Therapeutic Tablet 1 TABLET PO (09:46)
[2017-10-01] MEDS: Calcium Carbonate 500 MG Tablet PO ×2 (09:46→18:10)
[2017-10-01] MEDS: Calcium Carb/Vitamin D 1 TABLET Tablet PO ×2 (09:46→18:04)
[2017-10-01] MEDS: oxyCODONE 5 MG Tablet PO (13:17)
[2017-10-01 15:44] VITALS: BP 153/70; PULSE 77; RESP 18; TEMP 36.1; O2SAT 93
[2017-10-01] MEDS: Acetaminophen 500 MG Tablet 1000 MG PO (15:47)
[2017-10-02] MEDS: Levothyroxine 50 MCG Tablet PO (05:39)
[2017-10-02] MEDS: Atenolol 50 MG Tablet PO (05:39)
[2017-10-02] MEDS: Gabapentin 400 MG Capsule PO ×5 (05:39→21:36)
[2017-10-02] MEDS: Cefdinir 300 MG Capsule PO ×2 (05:39→17:03)
[2017-10-02] MEDS: DULoxetine Hcl 30 MG Capsule 60 MG PO (05:39)
[2017-10-02] MEDS: Pantoprazole Sodium 20 MG Tablet PO ×2 (05:40→17:04)
[2017-10-02] MEDS: Senna/Docusate Sodium 1 Tablet 2 TABLET PO ×2 (05:40→17:04)
[2017-10-02] MEDS: Enoxaparin 40 MG/0.4 ML Syringe SC (05:40)
[2017-10-02] MEDS: Azithromycin 250 MG Tablet PO (05:40)
[2017-10-02] MEDS: Nystatin Powder 15gm Bottle 1 APPLIC TOPICAL ×2 (05:43→21:31)
[2017-10-02] MEDS: Menthol/Lanolin/Calamine/Znox 113 GM Tube 1 APPLIC TOPICAL ×2 (05:43→21:31)
[2017-10-02 05:45] VITALS: BP 166/95; PULSE 87
[2017-10-02 07:11] LABS: Bedside Glucose 108 mg/dL (70-110)
[2017-10-02] MEDS: oxyCODONE 5 MG Tablet PO (08:08)
[2017-10-02] MEDS: Multivitamins,Therapeutic Tablet 1 TABLET PO (08:10)
[2017-10-02] MEDS: Calcium Carb/Vitamin D 1 TABLET Tablet PO ×2 (08:10→17:03)
[2017-10-02] MEDS: Hydroxychloroquine 200 MG Tablet PO ×2 (08:10→17:04)
[2017-10-02] MEDS: Iron Polysaccharide Complex 150 MG CAPSULE PO (08:11)
[2017-10-02 10:51] LABS: Pathologist Review Reviewed
[2017-10-02] MEDS: Acetaminophen 500 MG Tablet 1000 MG PO (14:04)
[2017-10-02 15:55] VITALS: BP 111/48; PULSE 63; RESP 20; TEMP 36.6; O2SAT 91
[2017-10-02 21:38] VITALS: PULSE 71; RESP 18; O2SAT 91
[2017-10-03] MEDS: Menthol/Lanolin/Calamine/Znox 113 GM Tube 1 APPLIC TOPICAL ×2 (05:28→20:56)
[2017-10-03] MEDS: Levothyroxine 50 MCG Tablet PO (05:29)
[2017-10-03] MEDS: Pantoprazole Sodium 20 MG Tablet PO ×2 (05:29→17:32)
[2017-10-03] MEDS: Gabapentin 400 MG Capsule PO ×5 (05:29→20:57)
[2017-10-03] MEDS: Senna/Docusate Sodium 1 Tablet 2 TABLET PO ×2 (05:29→17:32)
[2017-10-03] MEDS: Cefdinir 300 MG Capsule PO ×2 (05:29→17:32)
[2017-10-03] MEDS: Atenolol 50 MG Tablet PO (05:30)
[2017-10-03] MEDS: DULoxetine Hcl 30 MG Capsule 60 MG PO (05:30)
[2017-10-03] MEDS: Nystatin Powder 15gm Bottle 1 APPLIC TOPICAL ×2 (05:32→20:56)
[2017-10-03] MEDS: Enoxaparin 40 MG/0.4 ML Syringe SC (05:32)
[2017-10-03 06:56] LABS: Bedside Glucose 98 mg/dL (70-110)
[2017-10-03] MEDS: Hydroxychloroquine 200 MG Tablet PO ×2 (08:42→17:32)
[2017-10-03] MEDS: Multivitamins,Therapeutic Tablet 1 TABLET PO (08:43)
[2017-10-03] MEDS: Iron Polysaccharide Complex 150 MG CAPSULE PO (08:43)
[2017-10-03] MEDS: Calcium Carb/Vitamin D 1 TABLET Tablet PO ×2 (08:43→17:32)
[2017-10-03] MEDS: Calcium Carbonate 500 MG Tablet PO (09:26)
--- NOTE | 2017-10-03 09:27 | NURSING ---
tums given per pt request
--- NOTE | 2017-10-03 11:04 | CASEMGMT ---
Insurance Clinical information sent. Pending continued stay approval at this time. Auth#[id number] Arminda TRUONG, DATABASE DESIGNER
[2017-10-03] MEDS: oxyCODONE 5 MG Tablet PO (11:48)
--- NOTE | 2017-10-03 14:36 | CASEMGMT ---
Brief interview for mental status (BIMS) and resident mood interview (PHQ-9) completed on this day. BIMS score 15/15. PHQ-9 score 07/16.
[2017-10-03 15:05] LABS: Bedside Glucose 127 mg/dL (70-110)
[2017-10-03 15:06] LABS: Bedside Glucose 93 mg/dL (70-110)
[2017-10-03 15:24] VITALS: BP 173/75; PULSE 76; RESP 18; TEMP 36.8; O2SAT 96
[2017-10-03 20:05] VITALS: RESP 18; O2SAT 95
[2017-10-04] MEDS: Menthol/Lanolin/Calamine/Znox 113 GM Tube 1 APPLIC TOPICAL ×2 (05:03→21:05)
[2017-10-04] MEDS: Levothyroxine 50 MCG Tablet PO (05:04)
[2017-10-04] MEDS: Atenolol 50 MG Tablet PO (05:05)
[2017-10-04] MEDS: Pantoprazole Sodium 20 MG Tablet PO ×2 (05:05→16:56)
[2017-10-04] MEDS: Gabapentin 400 MG Capsule PO ×5 (05:05→21:03)
[2017-10-04] MEDS: Cefdinir 300 MG Capsule PO ×2 (05:05→16:55)
[2017-10-04] MEDS: DULoxetine Hcl 30 MG Capsule 60 MG PO (05:05)
[2017-10-04] MEDS: Nystatin Powder 15gm Bottle 1 APPLIC TOPICAL ×2 (05:06→21:05)
[2017-10-04] MEDS: Senna/Docusate Sodium 1 Tablet 2 TABLET PO ×2 (05:07→16:56)
[2017-10-04] MEDS: Enoxaparin 40 MG/0.4 ML Syringe SC (05:10)
[2017-10-04 06:51] LABS: Bedside Glucose 109 mg/dL (70-110)
[2017-10-04] MEDS: Multivitamins,Therapeutic Tablet 1 TABLET PO (08:30)
[2017-10-04] MEDS: Iron Polysaccharide Complex 150 MG CAPSULE PO (08:30)
[2017-10-04] MEDS: Calcium Carb/Vitamin D 1 TABLET Tablet PO ×2 (08:30→16:55)
[2017-10-04] MEDS: Hydroxychloroquine 200 MG Tablet PO ×2 (08:30→16:56)
[2017-10-04] MEDS: oxyCODONE 5 MG Tablet PO (11:53)
--- NOTE | 2017-10-04 13:40 | NURSING ---
R' RESTING IN BED. EMPTIED SHANTI DRAIN AT THIS TIME FOR 10CC DARK-COLORED FLUID. RATES PAIN 2/10. NO NEEDS.
[2017-10-04 15:37] VITALS: BP 133/64; PULSE 65; RESP 16; TEMP 35.7; O2SAT 96
[2017-10-04] MEDS: Pramipexole Di-HCl 1 MG Tablet PO (21:05)
[2017-10-05 05:53] VITALS: BP 162/94; PULSE 84; O2SAT 92
[2017-10-05] MEDS: Levothyroxine 50 MCG Tablet PO (05:57)
[2017-10-05] MEDS: Ondansetron ODT 4 MG Tablet PO (05:58)
[2017-10-05] MEDS: Enoxaparin 40 MG/0.4 ML Syringe SC (05:58)
[2017-10-05] MEDS: Menthol/Lanolin/Calamine/Znox 113 GM Tube 1 APPLIC TOPICAL ×2 (05:59→22:06)
[2017-10-05] MEDS: Nystatin Powder 15gm Bottle 1 APPLIC TOPICAL ×2 (05:59→22:04)
[2017-10-05 06:56] LABS: Bedside Glucose 115 mg/dL (70-110)
--- NOTE | 2017-10-05 08:56 | NURSING ---
Addendum entered by Jennifer Araya 10/05/17 18:07: Xray results and UA results reviewed by Dr. Brantley, NO for diflucan 150mg PO x1 and magnesium citrate 300mL x1 dose. Original Note: Addendum entered by Jennifer Araya 10/05/17 10:18: Dr. Brantley updated on patient's nausea, NO for phenergan 25mg PO [id number] PRN, KUB and straight cath UA. Patient made aware. Original Note: Pt feeling nauseated this morning. Given PRN zofran with some relief. Patient would like to wait to take any medications until after nausea subsides.
--- NOTE | 2017-10-05 10:15 | RAD_ITS ---
STUDY: X-RAY - ABDOMEN/PELVIS REASON FOR EXAM: Female, 71 years old. Nausea TECHNIQUE: AP supine and decubitus views of the abdomen and pelvis. COMPARISON: None. FINDINGS: There is no bowel obstruction. There is air and stool to the level of the rectum. There is a large amount of stool in the colon, consistent with constipation. There is no definite free air identified on the decubitus view. There are spinal fusion rods in place. RAD/Abd Inc Decub and/or Erect IMPRESSION: No bowel obstruction. Constipation. Electronically Signed: Lázaro John, at 15:15 EDT Tel , Service support ,
[2017-10-05] MEDS: proMETHazine 25 MG Tablet PO ×2 (11:01→18:11)
[2017-10-05] MEDS: oxyCODONE 5 MG Tablet PO (13:48)
[2017-10-05] MEDS: Acetaminophen 500 MG Tablet 1000 MG PO (15:13)
[2017-10-05 15:36] LABS: Mucous, Urine 0 SEEN /hpf (<or=2+); White Blood Cells 0 SEEN /hpf (0-5)
[2017-10-05 15:42] VITALS: BP 164/82; PULSE 87; RESP 18; TEMP 36.2; O2SAT 91
[2017-10-05 15:43] LABS: Color, Urine Yellow (Yellow); Glucose, Dipstick Normal (Normal); Ketone-Dipstick Negative (Negative); Leukocyte Esterase-Dipstick Negative /ul (Negative); Nitrite-Dipstick Negative (Negative); Occult Blood-Urine 25 /ul (Negative); Protein-Dipstick Negative (Negative); Urine Bilirubin Dipstick Negative (Negative); Urine Clarity Clear (Clear); Urine Urobilinogen Normal (Normal)
[2017-10-05 16:24] LABS: Red Blood Cells-Urine 0-5 SEEN /hpf (0-5)
[2017-10-05 16:25] LABS: Bacteria RARE /hpf (None Seen); Squamous Epithelial Cells - UA 5-10 SEEN /hpf (5-10)
[2017-10-05] MEDS: DULoxetine Hcl 30 MG Capsule 60 MG PO (16:36)
[2017-10-05] MEDS: Atenolol 50 MG Tablet PO (16:37)
[2017-10-05] MEDS: Hydroxychloroquine 200 MG Tablet PO (16:39)
[2017-10-05] MEDS: Calcium Carb/Vitamin D 1 TABLET Tablet PO (16:39)
[2017-10-05] MEDS: Pantoprazole Sodium 20 MG Tablet PO (18:10)
[2017-10-05] MEDS: Senna/Docusate Sodium 1 Tablet 2 TABLET PO (18:10)
[2017-10-05] MEDS: Gabapentin 400 MG Capsule PO ×2 (18:10→22:05)
[2017-10-05] MEDS: FLUCONAZOLE 150 MG TABLET PO (20:31)
[2017-10-05] MEDS: Magnesium Citrate 300 ML PO (20:32)
[2017-10-06 05:38] VITALS: BP 158/73; PULSE 70
[2017-10-06] MEDS: Enoxaparin 40 MG/0.4 ML Syringe SC (05:43)
[2017-10-06] MEDS: DULoxetine Hcl 30 MG Capsule 60 MG PO (05:44)
[2017-10-06] MEDS: Gabapentin 400 MG Capsule PO ×4 (05:44→20:55)
[2017-10-06] MEDS: Pantoprazole Sodium 20 MG Tablet PO ×2 (05:44→17:17)
[2017-10-06] MEDS: Atenolol 50 MG Tablet PO (05:44)
[2017-10-06] MEDS: Levothyroxine 50 MCG Tablet PO (05:45)
[2017-10-06] MEDS: Senna/Docusate Sodium 1 Tablet 2 TABLET PO ×2 (05:45→17:17)
[2017-10-06] MEDS: Menthol/Lanolin/Calamine/Znox 113 GM Tube 1 APPLIC TOPICAL ×2 (05:48→20:55)
[2017-10-06 06:50] LABS: Bedside Glucose 95 mg/dL (70-110)
[2017-10-06] MEDS: Multivitamins,Therapeutic Tablet 1 TABLET PO (09:06)
[2017-10-06] MEDS: Iron Polysaccharide Complex 150 MG CAPSULE PO (09:06)
[2017-10-06] MEDS: Hydroxychloroquine 200 MG Tablet PO ×2 (09:06→17:17)
[2017-10-06] MEDS: Calcium Carb/Vitamin D 1 TABLET Tablet PO ×2 (09:06→17:16)
[2017-10-06] MEDS: Calcium Carbonate 500 MG Tablet PO (09:46)
[2017-10-06] MEDS: oxyCODONE 5 MG Tablet PO (11:32)
[2017-10-06 15:11] VITALS: BP 126/83; PULSE 64; RESP 18; TEMP 36.4; O2SAT 91
[2017-10-06] MEDS: Nystatin Powder 15gm Bottle 1 APPLIC TOPICAL (20:56)
[2017-10-07] MEDS: DULoxetine Hcl 30 MG Capsule 60 MG PO (05:29)
[2017-10-07] MEDS: Senna/Docusate Sodium 1 Tablet 2 TABLET PO ×2 (05:29→16:53)
[2017-10-07] MEDS: Pantoprazole Sodium 20 MG Tablet PO ×2 (05:29→16:53)
[2017-10-07] MEDS: Gabapentin 400 MG Capsule PO ×4 (05:29→20:53)
[2017-10-07] MEDS: Polyethylene Glycol 3350 17 GM PACKET PO (05:30)
[2017-10-07] MEDS: Levothyroxine 50 MCG Tablet PO (05:30)
[2017-10-07] MEDS: Atenolol 50 MG Tablet PO (05:30)
[2017-10-07] MEDS: Enoxaparin 40 MG/0.4 ML Syringe SC (05:30)
[2017-10-07] MEDS: Menthol/Lanolin/Calamine/Znox 113 GM Tube 1 APPLIC TOPICAL ×2 (05:30→20:52)
[2017-10-07] MEDS: Nystatin Powder 15gm Bottle 1 APPLIC TOPICAL ×2 (05:33→20:52)
[2017-10-07 06:31] LABS: Bedside Glucose 101 mg/dL (70-110)
[2017-10-07] MEDS: Iron Polysaccharide Complex 150 MG CAPSULE PO (06:55)
[2017-10-07] MEDS: Calcium Carb/Vitamin D 1 TABLET Tablet PO ×2 (06:55→16:52)
[2017-10-07] MEDS: Multivitamins,Therapeutic Tablet 1 TABLET PO (06:55)
[2017-10-07] MEDS: Hydroxychloroquine 200 MG Tablet PO ×2 (06:55→16:53)
--- NOTE | 2017-10-07 07:53 | NURSING ---
PT OFF UNIT TO APPT VIA TRANSPORT TO APPT [place] THIS AM,
[2017-10-07] MEDS: oxyCODONE 5 MG Tablet PO (13:01)
--- NOTE | 2017-10-07 13:06 | NURSING ---
R' BACK FROM APPT AT [facility] IN [place]. R' STATES APPT WENT WELL AND IT WAS STATED INCISION IS HEALING NICELY. HOWEVER, OFFICE WANTS DAILY LOG OF SHANTI DRAIN OUTPUT BEFORE THEY WILL REMOVE IT. N.O. TO RECORD DAILY DRAIN OUTPUT IN PROVIDED LOG. ONCE DAILY DRAIN OUTPUT IS LESS THAN 30CC PER DAY FOR TWO DAYS IN A ROW THEN WE ARE TO CALL PLASTIC SURGERY TO MAKE APPT WITH NURSE TO TAKE DRAIN OUT. SHANTI DRAIN WAS CHANGED AT APPT AND NO DRAINAGE WAS NOTED ONCE BACK FROM APPT AT THIS TIME.
--- NOTE | 2017-10-07 13:54 | CASEMGMT ---
Insurance Continued stay denied with last cover day being 10/09/17 and resident to discharge or financial responsibility to begin on 10/10/17. Auth#[id number] Arminda TRUONG, PHOTOGRAPHER'S ASSISTANT
--- NOTE | 2017-10-07 13:55 | CASEMGMT ---
Social Work Spoke with resident in room. This elementary school social worker communicating to resident that continued stay has been denied by insurance with a last cover day of 10/09/17 and resident to discharge or financial responsibility to begin on 10/10/17. Resident reporting to not be agreeable to discharge date and is planning to appeal. Resident educated on appeal process and signed NOMNOC. Resident reporting to be unable to return to home alone at this time. Team is no recommending for resident to return home alone at this time. Resident [id number], Leonie made aware of all above information as well per resident request. Resident currently unsure of a plan B at this time is resident would loose appeal. Resident aware that resident is unable to return home alone at this time and resident does not have resources to be able to have 24hr care within the home. This elementary school social worker to follow up with resident no later then 10/08/17 to establish a plan B. Resident planning to discuss with family between now and tomorrow. Resident aware of ECF as an option. Support given. Proposed discharge date: 10/10/17 pending appeal. PLAN: Undetermined at this time. Will continue to follow. Arminda TRUONG, BROADCAST OPERATIONS MANAGER
[2017-10-07 15:14] VITALS: BP 131/55; PULSE 62; RESP 18; TEMP 36.4; O2SAT 92
[2017-10-07] MEDS: Electrolyte Solution/Peg's 4000 ML 2000 ML PO (17:15)
--- NOTE | 2017-10-07 17:16 | NURSING ---
belinda prepared and at bedside. placed in ice and r' instructed on drinking. bedside commode placed at bedside. aware to use call light for assistance.
--- NOTE | 2017-10-07 18:02 | NURSING ---
Addendum entered by Colleen Ocampo 10/08/17 09:07: LARGE LOOSE STOOLS THIS AM Original Note: NO BM SINCE 09/04, NEW ORDER FOR [facility] 2 LITERS
--- NOTE | 2017-10-07 18:12 | NURSING ---
DR QUINTANA AWARE OF URINE CULTURE/SENSITIVITY RESULTS, NO NEW ORDERS.
[2017-10-08] MEDS: Polyethylene Glycol 3350 17 GM PACKET PO (05:15)
[2017-10-08] MEDS: Levothyroxine 50 MCG Tablet PO (05:16)
[2017-10-08] MEDS: Gabapentin 400 MG Capsule PO ×5 (05:16→21:28)
[2017-10-08] MEDS: Senna/Docusate Sodium 1 Tablet 2 TABLET PO (05:16)
[2017-10-08] MEDS: Atenolol 50 MG Tablet PO (05:16)
[2017-10-08] MEDS: Pantoprazole Sodium 20 MG Tablet PO ×2 (05:16→17:27)
[2017-10-08] MEDS: DULoxetine Hcl 30 MG Capsule 60 MG PO (05:16)
[2017-10-08] MEDS: Menthol/Lanolin/Calamine/Znox 113 GM Tube 1 APPLIC TOPICAL ×2 (05:17→21:28)
[2017-10-08] MEDS: Nystatin Powder 15gm Bottle 1 APPLIC TOPICAL ×2 (05:18→21:28)
[2017-10-08] MEDS: Enoxaparin 40 MG/0.4 ML Syringe SC (05:18)
[2017-10-08 06:05] LABS: Absolute Lymphocyte Count 1.99 X10^3/ul (0.83-4.51); Absolute Neutrophil Count 3.3 X10^3/uL (2.0-7.7); Basophil# 0.12 X10^3/uL; Basophil% 1.6 % (0-1); Eosinophil# 1.06 X10^3/uL; Eosinophils% 14.5 % (0-5); Hematocrit 35.7 % (37-47); Hemoglobin 10.9 g/dl (12.0-15.0); Lymphocyte # 1.99 X10^3/ul (4.0); Lymphocyte % 27.2 % (19-41); Mean Corp Hgb Conc 30.5 g/gl (32-36); Mean Corpuscular Hgb 28.8 pg (27.0-32.0); Mean Corpuscular Volume 94.4 fL (81-99); Mean Platelet Vol. 9.7 fl (6.2-12.0); Monocyte# 0.83 X10^3/uL; Monocyte% 11.4 % (0-10); Neutrophil # 3.27 X10^3/uL (2.7-7.7); Neutrophil % 44.8 % (47-70); Platelet Count 340 K/mm3 (150-450); RBC Distribution Width CV 15.4 % (11.6-14.6); RBC Distribution Width SD 50.5 fl (35.1-43.9); Red Blood Count 3.78 M/mm3 (4.2-5.4); White Blood Count 7.3 K/mm3 (4.4-11.0)
[2017-10-08 06:07] LABS: POSITIVE COUNT NO; POSITIVE DIFFERENTIAL NO; POSITIVE MORPHOLOGY NO
[2017-10-08 06:21] LABS: Anion Gap 5 (5-15); BUN 11 mg/dL (7-18); BUN/Creat Ratio 13.9 RATIO (10-20); Calcium,Total 8.7 mg/dL (8.5-10.1); Chloride 101 mmol/L (98-107); Creatinine, Serum 0.79 mg/dL (0.55-1.02); EST Glomerular Filtration Rate 76 mL/min (>60); Est Glom Filt Rate - Afr Amer 92 mL/min (>60); Estimated Creatinine Clearance 38.94 ml/min; Glucose 87 mg/dL (74-106); Potassium 4.2 mmol/L (3.5-5.1); Sodium Level 138 mmol/L (136-145)
[2017-10-08 06:51] LABS: Bedside Glucose 98 mg/dL (70-110)
[2017-10-08] MEDS: Hydroxychloroquine 200 MG Tablet PO ×2 (07:41→17:27)
[2017-10-08] MEDS: Multivitamins,Therapeutic Tablet 1 TABLET PO (07:41)
[2017-10-08] MEDS: Iron Polysaccharide Complex 150 MG CAPSULE PO (07:41)
[2017-10-08] MEDS: Calcium Carb/Vitamin D 1 TABLET Tablet PO ×2 (07:41→17:27)
--- NOTE | 2017-10-08 08:55 | CASEMGMT ---
Social Work Spoke with resident in room. Resident reporting that resident has chosen to discharge to an extended care facility in the event that the appeal is lost. Resident choosing [facility] ([facility]) as first choice for placement. Resident does not currently have a second option at this time. Support given. Appeal still pending. [facility] left. Clinical information faxed. Pending response. Transfer form initiated. Proposed discharge date: 10/10/17 pending appeal. Arminda TRUONG, COMIC BOOK WRITER
--- NOTE | 2017-10-08 10:32 | CASEMGMT ---
Social Work Telephone call from [facility], Debra. Debra reporting to be able to accept resident on 10/10/17 if appeal is lost. Spoke with resident in room. This social security benefits interviewer communicating above information. Resident is agreeable to plan in the event that appeal is lost. Proposed discharge date: 10/10/17 PLAN: Discharge to [facility] pending appeal. Arminda TRUONG, JAVA GRAILS DEVELOPER
[2017-10-08 14:31] LABS: Bedside Glucose 103 mg/dL (70-110)
[2017-10-08 14:31] LABS: Bedside Glucose 112 mg/dL (70-110)
[2017-10-08 15:59] VITALS: BP 171/73; PULSE 78; RESP 18; TEMP 36; O2SAT 94
--- NOTE | 2017-10-08 16:14 | CASEMGMT ---
Social Work Telephone call from [facility], won appeal. Spoke with resident in room. Resident aware of above outcome and is planning to continue with stay on the Transitional Care Unit at this time. Telephone call to [facility]. This director social canceling referral at this time. Will continue to follow. Arminda TRUONG, POLICE OFFICER
[2017-10-09] MEDS: DULoxetine Hcl 30 MG Capsule 60 MG PO (04:48)
[2017-10-09] MEDS: Atenolol 50 MG Tablet PO (04:48)
[2017-10-09] MEDS: Pantoprazole Sodium 20 MG Tablet PO ×2 (04:48→17:04)
[2017-10-09] MEDS: Levothyroxine 50 MCG Tablet PO (04:48)
[2017-10-09] MEDS: Nystatin Powder 15gm Bottle 1 APPLIC TOPICAL ×2 (04:49→20:39)
[2017-10-09] MEDS: Menthol/Lanolin/Calamine/Znox 113 GM Tube 1 APPLIC TOPICAL ×2 (04:49→20:40)
[2017-10-09] MEDS: Gabapentin 400 MG Capsule PO ×5 (04:50→20:41)
[2017-10-09] MEDS: Enoxaparin 40 MG/0.4 ML Syringe SC (04:50)
--- NOTE | 2017-10-09 05:53 | NURSING ---
Pt transferred self to restroom. Pt reports awaking from sleep and not knowing where she was. Pt AOx3 upon assessment. Pt understands the need to call for assistance and agreeable. Will continue to monitor.
[2017-10-09 06:50] LABS: Bedside Glucose 112 mg/dL (70-110)
[2017-10-09] MEDS: Hydroxychloroquine 200 MG Tablet PO ×2 (08:07→17:04)
[2017-10-09] MEDS: Multivitamins,Therapeutic Tablet 1 TABLET PO (08:07)
[2017-10-09] MEDS: Calcium Carb/Vitamin D 1 TABLET Tablet PO ×2 (08:07→17:04)
[2017-10-09] MEDS: Iron Polysaccharide Complex 150 MG CAPSULE PO (08:08)
[2017-10-09] MEDS: Calcium Carbonate 500 MG Tablet PO ×2 (09:06→21:56)
[2017-10-09] MEDS: oxyCODONE 5 MG Tablet PO (12:26)
[2017-10-09 15:14] VITALS: BP 121/38; PULSE 69; RESP 24; TEMP 36.7; O2SAT 94
--- NOTE | 2017-10-10 02:02 | NURSING ---
During rounds checked on patient's pulsox, patient sleeping, patient pulsox 81 on RA. Patient encouraged to use home bipap. Bipap placed on patient at this time.
[2017-10-10] MEDS: Nystatin Powder 15gm Bottle 1 APPLIC TOPICAL ×2 (06:25→21:12)
[2017-10-10] MEDS: Menthol/Lanolin/Calamine/Znox 113 GM Tube 1 APPLIC TOPICAL ×2 (06:25→21:12)
[2017-10-10] MEDS: Pantoprazole Sodium 20 MG Tablet PO ×2 (06:28→16:59)
[2017-10-10] MEDS: Levothyroxine 50 MCG Tablet PO (06:28)
[2017-10-10] MEDS: DULoxetine Hcl 30 MG Capsule 60 MG PO (06:28)
[2017-10-10] MEDS: Gabapentin 400 MG Capsule PO ×5 (06:28→21:09)
[2017-10-10] MEDS: Atenolol 50 MG Tablet PO (06:29)
[2017-10-10] MEDS: Enoxaparin 40 MG/0.4 ML Syringe SC (06:29)
[2017-10-10 06:40] LABS: Bedside Glucose 105 mg/dL (70-110)
[2017-10-10] MEDS: Calcium Carb/Vitamin D 1 TABLET Tablet PO ×2 (08:22→16:58)
[2017-10-10] MEDS: Iron Polysaccharide Complex 150 MG CAPSULE PO (08:22)
[2017-10-10] MEDS: Multivitamins,Therapeutic Tablet 1 TABLET PO (08:22)
[2017-10-10] MEDS: Hydroxychloroquine 200 MG Tablet PO ×2 (08:23→16:59)
--- NOTE | 2017-10-10 12:08 | CASEMGMT ---
Insurance Clinical information faxed. Pending continued stay approval at this time. Auth#[id number] Arminda TRUONG, LYE TREATER
[2017-10-10] MEDS: oxyCODONE 5 MG Tablet PO (13:59)
[2017-10-10 15:54] VITALS: BP 160/80; PULSE 75; RESP 18; TEMP 36.9; O2SAT 94
[2017-10-10] MEDS: Calcium Carbonate 500 MG Tablet PO (21:11)
--- NOTE | 2017-10-10 21:42 | PCM.TCUNOT ---
Subjective: Resident seen in room. Lying in bed, just finished her breakfast. She has no complaints, she has a smile on her face and is very appreciative of the care from TCU staff. Vitals/I&O's: Vital Signs Temp Pulse Resp BP Pulse Ox 98.4 F 75 18 160/80 H 94 10/10/17 15:54 10/10/17 15:54 10/10/17 15:54 10/10/17 15:54 10/10/17 15:54 Oxygen Flow Rate (L/min) 1 Oxygen Delivery Method Room Air Weight: 127.97 kg Body Mass Index (BMI) 55.0 Finger Stick Blood Glucose 164 Intake and Output for Last 24 Hours 10/08/17 10/09/17 10/10/17 23:59 23:59 23:59 Intake Total 600 / 600 780 / 780 1020 / 1020 Output Total Balance 595 / 595 770 / 770 1020 / 1020 Laboratory Results 10/10/17 06:25: POC Glucose 105 Past Medical History Past Medical History (Chronic Problems): Chronic Problems Morbid obesity (Chronic) Fibromyalgia (Chronic) IBS (irritable bowel syndrome) (Chronic) Lumbar spinal stenosis (Chronic) Muscle spasm (Chronic) Constipation (Chronic) Depression (Chronic) Neuropathic pain (Chronic) Rheumatoid arthritis (Chronic) Insomnia (Chronic) Diabetes mellitus (Chronic) Nausea (Chronic) GERD (gastroesophageal reflux disease) (Chronic) Sleep apnea (Chronic) Obstructive sleep apnea (Chronic) Peripheral neuropathy (Chronic) Hypothyroidism (Chronic) Chronic low back pain (Chronic) Psoriatic arthritis (Chronic) Type 2 diabetes mellitus (Chronic) Hypertension (Chronic) Allergies No Known Allergies Allergy (Verified 07/30/17 09:00) Home Medications: Ambulatory Orders Medication Instructions Recorded Atenolol [Tenormin (beta rema)] 50 mg PO DAILY 02/20/13 Hydroxychloroquine [Plaquenil] 200 mg PO BIDCM 02/20/13 Ropinirole HCl [Requip] 2 mg PO QHS PRN PRN 02/20/13 Gabapentin 400 mg PO 5X/DAY 05/05/13 Cyclobenzaprine [Flexeril] 10 mg PO TID PRN PRN 08/24/13 Infliximab [Remicade] 5 mg IV QMONTH 08/24/13 Multivitamins,Therapeutic 1 tablet PO DAILY 08/24/13 [Multivitamin] Duloxetine Hcl [Cymbalta] 60 mg PO DAILY 05/10/15 Calcium Carbonate [Calcium] 600 mg PO BID 08/25/15 Levothyroxine [Synthroid] 50 mcg PO DAILY 01/23/16 Lansoprazole [Prevacid] 16 mg PO BID 08/21/16 Metformin HCl 500 mg PO DAILY 08/22/16 Citalopram [Celexa] 10 mg PO QHS 07/07/17 Oxycodone Myristate [Xtampza ER] 18 mg PO BID 07/07/17 Meloxicam 15 mg PO DAILY 09/19/17 Surgical History: cholecystectomy, hysterectomy, total knee arthroplasty - BL TKR., - - R Reverse Shoulder replacement. Psychiatric History: Depression TUBE BLOWER History: No pertinent TUBE BLOWER history Lives: With Family - Family lives with her. Smoking Status: Never smoker Tobacco Use: Non-smoker Alcohol: None Drugs: None - *Family History Maternal History Items: No pertinent history Paternal History Items: Diabetes, Heart Disease Review of Systems Constitutional: Denies: Chills, Fever, Weight Change HEENT: Denies: Head Aches, Sinus Congestion, Sinus Drainage Cardiovascular: Denies: Chest Pain, Palpitations Respiratory: Denies: Cough, Shortness of breath at rest, Sputum production Gastrointestinal: Denies: Abdominal Pain, Nausea, Vomiting Genitourinary: Denies: Dysuria Musculoskeletal: Denies: Joint Pain, Joint Tenderness Skin: Denies: Rash, Wounds Neurological: Denies: Numbness, Tingling, Focal weakness Psychiatric: Denies: Anxiety, Depression, Homicidal Ideations, Suicidal Ideations Hematologic/ Lymphatic: Denies: Easy Bruising, Easy Bleeding Patient Problems: Active and Suspected Problems Restless leg syndrome (Acute) - Physical Exam General: Alert, Oriented x3, Cooperative HEENT: Atraumatic, PERRLA, EOMI, Normocephalic Neck: Supple, No JVD, Negative Carotid Bruits Lungs: Clear to auscultation, Normal air movement Cardiovascular: Regular rate, No murmurs Abdomen: Bowel Sounds Present, Soft, Non Tender Extremities: No edema, Capillary Refill Less than 3 Seconds Skin: No rashes, No breakdown Musculoskeletal: No Tenderness to Palpation of Joints or Extremities Neurological: Cranial nerves II-XII grossly intact Psych/Mental Status: Normal Affect, Appropriate Vital Signs Temp Pulse Resp BP Pulse Ox 98.4 F 75 18 160/80 H 94 10/10/17 15:54 10/10/17 15:54 10/10/17 15:54 10/10/17 15:54 10/10/17 15:54 Oxygen Flow Rate (L/min) 1 Oxygen Delivery Method Room Air Weight: 127.97 kg Body Mass Index (BMI) 55.0 Finger Stick Blood Glucose 164 Intake and Output for Last 24 Hours 10/08/17 10/09/17 10/10/17 23:59 23:59 23:59 Intake Total 600 / 600 780 / 780 1020 / 1020 Output Total Balance 595 / 595 770 / 770 1020 / 1020 POC Glucose 10/10/17 06:25 POC Glucose 105 Assessment/Plan All Active Problems Restless leg syndrome (Acute) Acute exacerbation of chronic low back pain (Acute) 71 year old female with below past medical history hospitalized for lumbar spinal surgery 09/13/[address] Aby Rosas, admitted to TCU with debility, here for rehabilitation, strengthening, prior to discharge home with family. Debility - PT/OT. Pain - Tylenol 1000MG Q8H PRN mild pain, Oxycontin 20MG BID, Oxycodone 5-10MG Q6H PRN severe pain thru 10/03/2017. Bowel - Miralax 17GM daily, Senna/colace 2 tablets BID, Dulcolax 10MG PO daily PRN. Pneumonia vaccination - Administer Prevnar 13 and/or Pneumovax 23 as necessary. DVT prophylaxis - Lovenox 40M SC daily. Hypertension - Atenolol 50MG daily. Calcium deficiency - Oscal D BID. Muscle spasm - Flexeril 10MG TID PRN. Depression - Duloxetine 60MG daily. Neuropathic pain - Gabapentin 400MG 5x/day. Rheumatoid Arthritis - Plaquenil 200MG BID. Hypothyroidism - Levothyroxine 50MCG daily. Insomnia - Melatonin 3MG QHS PRN. Skin irritation - Calmoseptine BID bilateral buttocks. Diabetes Mellitus II - Metformin XR 500MG daily. Nutrition - MVI daily. Tinea Corporis - Nystatin powder BID abdominal folds. Nausea - Zofran 4MG Q6H PRN, Phenergan 25MG Q6H PRN. GERD - Pantoprazole 20MG BID, TUMS 500MG Q4H PRN. Restless Legs Syndrome - Mirapex 1MG QHS PRN. Iron deficiency anemia - Ferrex 150MG daily.
--- NOTE | 2017-10-10 21:47 | PN_ITS ---
Subjective: Resident seen in room. Lying in bed, just finished her breakfast. She has no complaints, she has a smile on her face and is very appreciative of the care from TCU staff. Vitals/I&O's: Vital Signs Temp Pulse Resp BP Pulse Ox 98.4 F 75 18 160/80 H 94 10/10/17 15:54 10/10/17 15:54 10/10/17 15:54 10/10/17 15:54 10/10/17 15:54 Oxygen Flow Rate (L/min) 1 Oxygen Delivery Method Room Air Weight: 127.97 kg Body Mass Index (BMI) 55.0 Finger Stick Blood Glucose 164 Intake and Output for Last 24 Hours 10/08/17 10/09/17 10/10/17 23:59 23:59 23:59 Intake Total 600 / 600 780 / 780 1020 / 1020 Output Total Balance 595 / 595 770 / 770 1020 / 1020 Laboratory Results 10/10/17 06:25: POC Glucose 105 Past Medical History Past Medical History (Chronic Problems): Chronic Problems Morbid obesity (Chronic) Fibromyalgia (Chronic) IBS (irritable bowel syndrome) (Chronic) Lumbar spinal stenosis (Chronic) Muscle spasm (Chronic) Constipation (Chronic) Depression (Chronic) Neuropathic pain (Chronic) Rheumatoid arthritis (Chronic) Insomnia (Chronic) Diabetes mellitus (Chronic) Nausea (Chronic) GERD (gastroesophageal reflux disease) (Chronic) Sleep apnea (Chronic) Obstructive sleep apnea (Chronic) Peripheral neuropathy (Chronic) Hypothyroidism (Chronic) Chronic low back pain (Chronic) Psoriatic arthritis (Chronic) Type 2 diabetes mellitus (Chronic) Hypertension (Chronic) Allergies No Known Allergies Allergy (Verified 07/30/17 09:00) Home Medications: Ambulatory Orders Medication Instructions Recorded Atenolol [Tenormin (beta rema)] 50 mg PO DAILY 02/20/13 Hydroxychloroquine [Plaquenil] 200 mg PO BIDCM 02/20/13 Ropinirole HCl [Requip] 2 mg PO QHS PRN PRN 02/20/13 Gabapentin 400 mg PO 5X/DAY 05/05/13 Cyclobenzaprine [Flexeril] 10 mg PO TID PRN PRN 08/24/13 Infliximab [Remicade] 5 mg IV QMONTH 08/24/13 Multivitamins,Therapeutic 1 tablet PO DAILY 08/24/13 [Multivitamin] Duloxetine Hcl [Cymbalta] 60 mg PO DAILY 05/10/15 Calcium Carbonate [Calcium] 600 mg PO BID 08/25/15 Levothyroxine [Synthroid] 50 mcg PO DAILY 01/23/16 Lansoprazole [Prevacid] 16 mg PO BID 08/21/16 Metformin HCl 500 mg PO DAILY 08/22/16 Citalopram [Celexa] 10 mg PO QHS 07/07/17 Oxycodone Myristate [Xtampza ER] 18 mg PO BID 07/07/17 Meloxicam 15 mg PO DAILY 09/19/17 Surgical History: cholecystectomy, hysterectomy, total knee arthroplasty - BL TKR., - - R Reverse Shoulder replacement. Psychiatric History: Depression SCIENCE EDUCATION PROFESSOR History: No pertinent SCIENCE EDUCATION PROFESSOR history Lives: With Family - Family lives with her. Smoking Status: Never smoker Tobacco Use: Non-smoker Alcohol: None Drugs: None - *Family History Maternal History Items: No pertinent history Paternal History Items: Diabetes, Heart Disease Review of Systems Constitutional: Denies: Chills, Fever, Weight Change HEENT: Denies: Head Aches, Sinus Congestion, Sinus Drainage Cardiovascular: Denies: Chest Pain, Palpitations Respiratory: Denies: Cough, Shortness of breath at rest, Sputum production Gastrointestinal: Denies: Abdominal Pain, Nausea, Vomiting Genitourinary: Denies: Dysuria Musculoskeletal: Denies: Joint Pain, Joint Tenderness Skin: Denies: Rash, Wounds Neurological: Denies: Numbness, Tingling, Focal weakness Psychiatric: Denies: Anxiety, Depression, Homicidal Ideations, Suicidal Ideations Hematologic/ Lymphatic: Denies: Easy Bruising, Easy Bleeding Patient Problems: Active and Suspected Problems Restless leg syndrome (Acute) - Physical Exam General: Alert, Oriented x3, Cooperative HEENT: Atraumatic, PERRLA, EOMI, Normocephalic Neck: Supple, No JVD, Negative Carotid Bruits Lungs: Clear to auscultation, Normal air movement Cardiovascular: Regular rate, No murmurs Abdomen: Bowel Sounds Present, Soft, Non Tender Extremities: No edema, Capillary Refill Less than 3 Seconds Skin: No rashes, No breakdown Musculoskeletal: No Tenderness to Palpation of Joints or Extremities Neurological: Cranial nerves II-XII grossly intact Psych/Mental Status: Normal Affect, Appropriate Vital Signs Temp Pulse Resp BP Pulse Ox 98.4 F 75 18 160/80 H 94 10/10/17 15:54 10/10/17 15:54 10/10/17 15:54 10/10/17 15:54 10/10/17 15:54 Oxygen Flow Rate (L/min) 1 Oxygen Delivery Method Room Air Weight: 127.97 kg Body Mass Index (BMI) 55.0 Finger Stick Blood Glucose 164 Intake and Output for Last 24 Hours 10/08/17 10/09/17 10/10/17 23:59 23:59 23:59 Intake Total 600 / 600 780 / 780 1020 / 1020 Output Total Balance 595 / 595 770 / 770 1020 / 1020 POC Glucose 10/10/17 06:25 POC Glucose 105 Assessment/Plan All Active Problems Restless leg syndrome (Acute) Acute exacerbation of chronic low back pain (Acute) 71 year old female with below past medical history hospitalized for lumbar spinal surgery 09/13/[address] Aby Rosas, admitted to TCU with debility, here for rehabilitation, strengthening, prior to discharge home with family. * Debility - PT/OT. * Pain - Tylenol 1000MG Q8H PRN mild pain, Oxycontin 20MG BID, Oxycodone 5-10MG Q6H PRN severe pain thru 10/03/2017. * Bowel - Miralax 17GM daily, Senna/colace 2 tablets BID, Dulcolax 10MG PO daily PRN. * Pneumonia vaccination - Administer Prevnar 13 and/or Pneumovax 23 as necessary. * DVT prophylaxis - Lovenox 40M SC daily. * Hypertension - Atenolol 50MG daily. * Calcium deficiency - Oscal D BID. * Muscle spasm - Flexeril 10MG TID PRN. * Depression - Duloxetine 60MG daily. * Neuropathic pain - Gabapentin 400MG 5x/day. * Rheumatoid Arthritis - Plaquenil 200MG BID. * Hypothyroidism - Levothyroxine 50MCG daily. * Insomnia - Melatonin 3MG QHS PRN. * Skin irritation - Calmoseptine BID bilateral buttocks. * Diabetes Mellitus II - Metformin XR 500MG daily. * Nutrition - MVI daily. * Tinea Corporis - Nystatin powder BID abdominal folds. * Nausea - Zofran 4MG Q6H PRN, Phenergan 25MG Q6H PRN. * GERD - Pantoprazole 20MG BID, TUMS 500MG Q4H PRN. * Restless Legs Syndrome - Mirapex 1MG QHS PRN. * Iron deficiency anemia - Ferrex 150MG daily.
[2017-10-11 07:15] LABS: Bedside Glucose 90 mg/dL (70-110)
[2017-10-11] MEDS: Gabapentin 400 MG Capsule PO ×5 (07:17→23:11)
[2017-10-11] MEDS: Atenolol 50 MG Tablet PO (07:18)
[2017-10-11] MEDS: Enoxaparin 40 MG/0.4 ML Syringe SC (07:18)
[2017-10-11] MEDS: Pantoprazole Sodium 20 MG Tablet PO ×2 (07:18→17:22)
[2017-10-11] MEDS: Levothyroxine 50 MCG Tablet PO (07:18)
[2017-10-11] MEDS: DULoxetine Hcl 30 MG Capsule 60 MG PO (07:18)
[2017-10-11] MEDS: Nystatin Powder 15gm Bottle 1 APPLIC TOPICAL ×2 (07:20→23:13)
[2017-10-11] MEDS: Menthol/Lanolin/Calamine/Znox 113 GM Tube 1 APPLIC TOPICAL ×2 (07:20→23:12)
--- NOTE | 2017-10-11 07:57 | PCA ---
When getting patient out of bed this morning other aide and i went to put back binder and back brace on patient and patient refused the binder but we applied the back brace
[2017-10-11] MEDS: Hydroxychloroquine 200 MG Tablet PO ×2 (09:04→17:22)
[2017-10-11] MEDS: Calcium Carb/Vitamin D 1 TABLET Tablet PO ×2 (09:05→17:22)
[2017-10-11] MEDS: Iron Polysaccharide Complex 150 MG CAPSULE PO (09:05)
[2017-10-11] MEDS: Multivitamins,Therapeutic Tablet 1 TABLET PO (09:05)
--- NOTE | 2017-10-11 14:47 | CASEMGMT ---
insurance Continued stay granted with update due 10/15. Pt notified. Auth # [id number] DIONNE Issa
[2017-10-11 15:48] VITALS: BP 128/47; PULSE 73; RESP 18; TEMP 36.7; O2SAT 96
[2017-10-11] MEDS: Senna/Docusate Sodium 1 Tablet 2 TABLET PO (17:23)
[2017-10-12] MEDS: Levothyroxine 50 MCG Tablet PO (04:41)
[2017-10-12] MEDS: Enoxaparin 40 MG/0.4 ML Syringe SC (04:41)
[2017-10-12] MEDS: Senna/Docusate Sodium 1 Tablet 2 TABLET PO ×2 (04:41→17:14)
[2017-10-12] MEDS: Pantoprazole Sodium 20 MG Tablet PO ×2 (04:42→17:14)
[2017-10-12] MEDS: Atenolol 50 MG Tablet PO (04:42)
[2017-10-12] MEDS: DULoxetine Hcl 30 MG Capsule 60 MG PO (04:42)
[2017-10-12] MEDS: Gabapentin 400 MG Capsule PO ×4 (04:42→21:11)
[2017-10-12] MEDS: Menthol/Lanolin/Calamine/Znox 113 GM Tube 1 APPLIC TOPICAL ×2 (04:43→21:10)
[2017-10-12] MEDS: Nystatin Powder 15gm Bottle 1 APPLIC TOPICAL ×2 (04:44→21:11)
[2017-10-12 06:56] LABS: Bedside Glucose 99 mg/dL (70-110)
[2017-10-12] MEDS: Multivitamins,Therapeutic Tablet 1 TABLET PO (08:13)
[2017-10-12] MEDS: Iron Polysaccharide Complex 150 MG CAPSULE PO (08:13)
[2017-10-12] MEDS: Hydroxychloroquine 200 MG Tablet PO ×2 (08:13→17:14)
[2017-10-12] MEDS: Calcium Carb/Vitamin D 1 TABLET Tablet PO ×2 (08:13→17:14)
--- NOTE | 2017-10-12 11:37 | NURSING ---
dr lentz notified of pt requesting oxycontin to be decreased to 10mg BID, pt trying to wean self off if possible. new order received.
[2017-10-12 16:00] VITALS: BP 153/50; PULSE 63; RESP 16; TEMP 35.9; O2SAT 95
[2017-10-12] MEDS: oxyCODONE HCl Cr 10 MG Tablet PO (17:13)
--- NOTE | 2017-10-12 19:54 | NURSING ---
pt resting in bed assessment complete. denies further needs
--- NOTE | 2017-10-12 21:14 | NURSING ---
took hs meds without difficulty, denies further needs. call light in reach
[2017-10-12] MEDS: Pramipexole Di-HCl 1 MG Tablet PO (22:18)
[2017-10-13] MEDS: Ondansetron ODT 4 MG Tablet PO ×2 (04:05→11:52)
[2017-10-13] MEDS: Levothyroxine 50 MCG Tablet PO (04:27)
[2017-10-13] MEDS: Atenolol 50 MG Tablet PO (04:28)
[2017-10-13] MEDS: Menthol/Lanolin/Calamine/Znox 113 GM Tube 1 APPLIC TOPICAL ×2 (04:28→20:37)
[2017-10-13] MEDS: Pantoprazole Sodium 20 MG Tablet PO ×2 (04:28→17:21)
[2017-10-13] MEDS: DULoxetine Hcl 30 MG Capsule 60 MG PO (04:28)
[2017-10-13] MEDS: Enoxaparin 40 MG/0.4 ML Syringe SC (04:28)
[2017-10-13] MEDS: Senna/Docusate Sodium 1 Tablet 2 TABLET PO ×2 (04:28→17:21)
[2017-10-13] MEDS: Nystatin Powder 15gm Bottle 1 APPLIC TOPICAL ×2 (04:29→20:37)
[2017-10-13] MEDS: Gabapentin 400 MG Capsule PO ×4 (04:29→20:37)
[2017-10-13] MEDS: oxyCODONE HCl Cr 10 MG Tablet PO ×2 (04:33→17:22)
[2017-10-13 07:11] LABS: Bedside Glucose 112 mg/dL (70-110)
[2017-10-13] MEDS: Iron Polysaccharide Complex 150 MG CAPSULE PO (08:15)
[2017-10-13] MEDS: Multivitamins,Therapeutic Tablet 1 TABLET PO (08:15)
[2017-10-13] MEDS: Hydroxychloroquine 200 MG Tablet PO ×2 (08:15→17:22)
[2017-10-13] MEDS: Calcium Carb/Vitamin D 1 TABLET Tablet PO ×2 (08:15→17:22)
--- NOTE | 2017-10-13 08:19 | NURSING ---
pt refuses to sit up for any length of time, will not get up and eat meals in chair or even WC. Will continue to encourage.
[2017-10-13] MEDS: oxyCODONE 5 MG Tablet PO (11:52)
[2017-10-13 15:31] VITALS: BP 151/58; PULSE 67; RESP 16; TEMP 36.2; O2SAT 94
[2017-10-14] MEDS: Atenolol 50 MG Tablet PO (04:14)
[2017-10-14] MEDS: Pantoprazole Sodium 20 MG Tablet PO ×2 (04:14→17:38)
[2017-10-14] MEDS: Levothyroxine 50 MCG Tablet PO (04:14)
[2017-10-14] MEDS: DULoxetine Hcl 30 MG Capsule 60 MG PO (04:14)
[2017-10-14] MEDS: Gabapentin 400 MG Capsule PO ×5 (04:15→20:51)
[2017-10-14] MEDS: Enoxaparin 40 MG/0.4 ML Syringe SC (04:15)
[2017-10-14] MEDS: Polyethylene Glycol 3350 17 GM PACKET PO (04:15)
[2017-10-14] MEDS: Senna/Docusate Sodium 1 Tablet 2 TABLET PO ×2 (04:15→17:38)
[2017-10-14] MEDS: Menthol/Lanolin/Calamine/Znox 113 GM Tube 1 APPLIC TOPICAL ×2 (04:16→20:52)
[2017-10-14] MEDS: Nystatin Powder 15gm Bottle 1 APPLIC TOPICAL ×2 (04:16→20:55)
[2017-10-14] MEDS: oxyCODONE HCl Cr 10 MG Tablet PO ×2 (04:17→17:36)
[2017-10-14 07:04] LABS: Bedside Glucose 98 mg/dL (70-110)
[2017-10-14] MEDS: Iron Polysaccharide Complex 150 MG CAPSULE PO (08:31)
[2017-10-14] MEDS: Multivitamins,Therapeutic Tablet 1 TABLET PO (08:31)
[2017-10-14] MEDS: Calcium Carb/Vitamin D 1 TABLET Tablet PO ×2 (08:31→17:37)
[2017-10-14] MEDS: Hydroxychloroquine 200 MG Tablet PO ×2 (08:31→17:38)
[2017-10-14] MEDS: oxyCODONE 5 MG Tablet PO (09:38)
[2017-10-14 15:33] VITALS: BP 135/69; PULSE 62; RESP 18; TEMP 36.2; O2SAT 90
--- NOTE | 2017-10-14 17:50 | NURSING ---
Patient has a small open area to incision, cleansed with NS applied adaptic and DSD.
[2017-10-15 06:03] LABS: Absolute Neutrophil Count 4.4 X10^3/uL (2.0-7.7); Basophil# 0.08 X10^3/uL; Basophil% 1.1 % (0-1); Eosinophil# 0.59 X10^3/uL; Eosinophils% 8.1 % (0-5); Hematocrit 35.1 % (37-47); Hemoglobin 10.7 g/dl (12.0-15.0); Lymphocyte % 19.3 % (19-41); Mean Corp Hgb Conc 30.5 g/gl (32-36); Mean Corpuscular Hgb 28.2 pg (27.0-32.0); Mean Corpuscular Volume 92.6 fL (81-99); Monocyte# 0.79 X10^3/uL; Monocyte% 10.9 % (0-10); Neutrophil # 4.36 X10^3/uL (2.7-7.7); Neutrophil % 60.3 % (47-70); Platelet Count 294 K/mm3 (150-450); RBC Distribution Width CV 14.9 % (11.6-14.6); RBC Distribution Width SD 48.2 fl (35.1-43.9); Red Blood Count 3.79 M/mm3 (4.2-5.4); White Blood Count 7.2 K/mm3 (4.4-11.0)
[2017-10-15 06:06] LABS: POSITIVE COUNT NO; POSITIVE DIFFERENTIAL NO; POSITIVE MORPHOLOGY NO
[2017-10-15] MEDS: Enoxaparin 40 MG/0.4 ML Syringe SC (06:21)
[2017-10-15] MEDS: Gabapentin 400 MG Capsule PO ×5 (06:22→20:56)
[2017-10-15] MEDS: Senna/Docusate Sodium 1 Tablet 2 TABLET PO ×2 (06:22→16:49)
[2017-10-15] MEDS: Levothyroxine 50 MCG Tablet PO (06:22)
[2017-10-15] MEDS: oxyCODONE HCl Cr 10 MG Tablet PO ×2 (06:22→16:52)
[2017-10-15] MEDS: Polyethylene Glycol 3350 17 GM PACKET PO (06:22)
[2017-10-15] MEDS: Pantoprazole Sodium 20 MG Tablet PO ×2 (06:22→16:48)
[2017-10-15] MEDS: DULoxetine Hcl 30 MG Capsule 60 MG PO (06:22)
[2017-10-15] MEDS: Atenolol 50 MG Tablet PO (06:22)
[2017-10-15 06:25] LABS: Anion Gap 8 (5-15); BUN 7 mg/dL (7-18); BUN/Creat Ratio 8.4 RATIO (10-20); Calcium,Total 8.8 mg/dL (8.5-10.1); Chloride 103 mmol/L (98-107); Creatinine, Serum 0.83 mg/dL (0.55-1.02); EST Glomerular Filtration Rate 72 mL/min (>60); Est Glom Filt Rate - Afr Amer 87 mL/min (>60); Estimated Creatinine Clearance 46.91 ml/min; Glucose 103 mg/dL (74-106); Potassium 3.8 mmol/L (3.5-5.1); Sodium Level 142 mmol/L (136-145)
[2017-10-15] MEDS: Menthol/Lanolin/Calamine/Znox 113 GM Tube 1 APPLIC TOPICAL ×2 (06:25→20:56)
[2017-10-15] MEDS: Nystatin Powder 15gm Bottle 1 APPLIC TOPICAL ×2 (06:25→20:56)
[2017-10-15 07:00] LABS: Bedside Glucose 115 mg/dL (70-110)
[2017-10-15] MEDS: Calcium Carb/Vitamin D 1 TABLET Tablet PO ×2 (09:49→16:48)
[2017-10-15] MEDS: Iron Polysaccharide Complex 150 MG CAPSULE PO (09:49)
[2017-10-15] MEDS: Multivitamins,Therapeutic Tablet 1 TABLET PO (09:49)
[2017-10-15] MEDS: Hydroxychloroquine 200 MG Tablet PO ×2 (09:50→16:48)
--- NOTE | 2017-10-15 13:00 | CASEMGMT ---
Insurance Clinical information faxed. Pending continued stay approval at this time. Auth#[id number] Arminda TRUONG, COMMERCIAL PEST CONTROL REPRESENTATIVE
--- NOTE | 2017-10-15 14:20 | CHAPLAIN ---
Type of Pastoral Visit ___ Initial Visit _x__ Follow-up Visit ___ On-call Visit ___ General Patient Visit ___ Spiritual Assessment ___ Family Conference ___ Bereavement ___ Rapid Response ___ Code Blue ___ Other (describe below) Pastoral Care Referral From _x__ Patient ___ Family ___ Nurse ___ Physician ___ Floor Mechanic ___ Holistic Health Practitioner ___ Other (describe below) Sacrament/Intervention _x__ Active listening ___ Anointing ___ Taoist ___ Bereavement ___ Communion ___ Sharmila exploration ___ ___ Life review ___ Prayer ___ Reconciliation ___ Sacrament of Sick _x__ Supportive presence ___ Wedding ___ Other (describe below) Pastoral Comments patient was reading in bed; pt reports progress is made with pain and with movement; pt is optimistic about her future although time will be required; pt expresses thankfulness for follow up and concern; no other needs reported at this time
[2017-10-15 15:36] VITALS: BP 137/61; PULSE 73; RESP 18; TEMP 36.8; O2SAT 95
[2017-10-15] MEDS: Calcium Carbonate 500 MG Tablet PO (20:55)
[2017-10-15] MEDS: Pramipexole Di-HCl 1 MG Tablet PO (22:26)
[2017-10-16] MEDS: oxyCODONE HCl Cr 10 MG Tablet PO ×2 (06:25→16:59)
[2017-10-16] MEDS: DULoxetine Hcl 30 MG Capsule 60 MG PO (06:25)
[2017-10-16] MEDS: Enoxaparin 40 MG/0.4 ML Syringe SC (06:25)
[2017-10-16] MEDS: Gabapentin 400 MG Capsule PO ×5 (06:25→21:27)
[2017-10-16] MEDS: Pantoprazole Sodium 20 MG Tablet PO ×2 (06:25→16:59)
[2017-10-16] MEDS: Senna/Docusate Sodium 1 Tablet 2 TABLET PO ×2 (06:26→17:00)
[2017-10-16] MEDS: Atenolol 50 MG Tablet PO (06:26)
[2017-10-16] MEDS: Polyethylene Glycol 3350 17 GM PACKET PO (06:26)
[2017-10-16] MEDS: Levothyroxine 50 MCG Tablet PO (06:26)
[2017-10-16] MEDS: proMETHazine 25 MG Tablet PO (06:28)
[2017-10-16] MEDS: Menthol/Lanolin/Calamine/Znox 113 GM Tube 1 APPLIC TOPICAL ×2 (06:32→21:28)
[2017-10-16] MEDS: Nystatin Powder 15gm Bottle 1 APPLIC TOPICAL ×2 (06:33→21:28)
[2017-10-16 07:16] LABS: Bedside Glucose 124 mg/dL (70-110)
[2017-10-16] MEDS: Calcium Carb/Vitamin D 1 TABLET Tablet PO ×2 (08:53→16:59)
[2017-10-16] MEDS: Ondansetron ODT 4 MG Tablet PO (08:53)
[2017-10-16] MEDS: Iron Polysaccharide Complex 150 MG CAPSULE PO (08:53)
[2017-10-16] MEDS: Multivitamins,Therapeutic Tablet 1 TABLET PO (08:53)
[2017-10-16] MEDS: Hydroxychloroquine 200 MG Tablet PO ×2 (08:53→16:59)
[2017-10-16 15:54] VITALS: BP 142/69; PULSE 68; RESP 18; TEMP 36.7; O2SAT 94
[2017-10-16] MEDS: Calcium Carbonate 500 MG Tablet PO (21:27)
[2017-10-16] MEDS: Pramipexole Di-HCl 1 MG Tablet PO (22:03)
[2017-10-17] MEDS: oxyCODONE HCl Cr 10 MG Tablet PO ×2 (06:06→17:28)
[2017-10-17] MEDS: Senna/Docusate Sodium 1 Tablet 2 TABLET PO ×2 (06:06→17:29)
[2017-10-17] MEDS: Levothyroxine 50 MCG Tablet PO (06:06)
[2017-10-17] MEDS: Pantoprazole Sodium 20 MG Tablet PO ×2 (06:06→17:29)
[2017-10-17] MEDS: Atenolol 50 MG Tablet PO (06:07)
[2017-10-17] MEDS: Gabapentin 400 MG Capsule PO ×4 (06:07→20:35)
[2017-10-17] MEDS: Enoxaparin 40 MG/0.4 ML Syringe SC (06:07)
[2017-10-17] MEDS: DULoxetine Hcl 30 MG Capsule 60 MG PO (06:07)
[2017-10-17] MEDS: Menthol/Lanolin/Calamine/Znox 113 GM Tube 1 APPLIC TOPICAL ×2 (06:10→20:35)
[2017-10-17] MEDS: Nystatin Powder 15gm Bottle 1 APPLIC TOPICAL ×2 (06:11→20:35)
[2017-10-17 06:56] LABS: Bedside Glucose 101 mg/dL (70-110)
[2017-10-17] MEDS: Hydroxychloroquine 200 MG Tablet PO ×2 (08:14→17:29)
[2017-10-17] MEDS: Calcium Carb/Vitamin D 1 TABLET Tablet PO ×2 (08:14→17:29)
[2017-10-17] MEDS: Iron Polysaccharide Complex 150 MG CAPSULE PO (08:14)
[2017-10-17] MEDS: Multivitamins,Therapeutic Tablet 1 TABLET PO (08:14)
[2017-10-17] MEDS: oxyCODONE 5 MG Tablet PO (08:14)
--- NOTE | 2017-10-17 09:04 | MDS.RN ---
Information for the mds was obtained from review of the clinical record, -paper charting and computer-hospital computer downtime during lookback period, interview of resident, staff, and direct observation of resident's care.
--- NOTE | 2017-10-17 10:30 | NURSING ---
R' LEAVING UNIT AT THIS TIME FOR APPT VIA COT.
--- NOTE | 2017-10-17 11:54 | CASEMGMT ---
Insurance Telephone call from Diana at [facility]. Resident case went to medical review. Auth#[id number] Arminda TRUONG, BROOM STITCHER
--- NOTE | 2017-10-17 15:42 | NURSING ---
pt returned from appt, drain removed, new orders for drsg changes, see orders.
--- NOTE | 2017-10-17 15:49 | CASEMGMT ---
Brief interview for mental status (BIMS) and resident mood interview (PHQ-9) completed on this day. BIMS score 15/15. PHQ-9 score .
--- NOTE | 2017-10-17 15:50 | CASEMGMT ---
Insurance Continued stay denied with last cover day being 10/19/17 and resident to discharge or financial responsibility to begin on 10/20/17. Auth#[id number] Arminda TRUONG, COKE WORKER
--- NOTE | 2017-10-17 15:50 | CASEMGMT ---
Social Work Spoke with resident in room. This social media strategist communicating to resident that continued stay has been denied by insurance with a last cover day being 10/19/17 and resident to discharge or financial responsibility to begin on 10/20/17. Resident does not agree with insurance decision and plans to appeal. Resident signing NOMNOC and planning to initiate appeal. Resident reporting that plan B for resident, if appeal is lost would be for resident to transition to [facility] ([facility]). Resident agreeable to this social media strategist contact resident [id number] in regards to above information. Telephone call to Leonie. Leonie is agreeable to above discharge plan. Support given. [facility] Attempted to leave voicemail. Voicemail was full. Will attempt to call again tomorrow. Proposed discharge date: 10/20/17 pending appeal. PLAN: Discharge to [facility] if appeal is lost, will continue with stay if appeal is won. Will continue to follow. Arminda TRUONG, MEAT TRIMMER
[2017-10-17 16:00] VITALS: BP 152/72; PULSE 58; RESP 18; TEMP 36.7; O2SAT 93
[2017-10-17] MEDS: Calcium Carbonate 500 MG Tablet PO (20:34)
[2017-10-17 20:38] VITALS: PULSE 58; RESP 18; O2SAT 93
--- NOTE | 2017-10-17 22:01 | PCM.DC ---
- Discharge Diagnoses Current Active Problems: Current Active and Chronic Problems Lumbar spinal stenosis (Chronic) Muscle spasm (Chronic) Constipation (Chronic) Depression (Chronic) Neuropathic pain (Chronic) Rheumatoid arthritis (Chronic) Insomnia (Chronic) Diabetes mellitus (Chronic) Nausea (Chronic) GERD (gastroesophageal reflux disease) (Chronic) Restless leg syndrome (Acute) Sleep apnea (Chronic) You will use the following diet at home:: No restrictions, Regular Your food should be the consistency of: Regular Your liquids should be the consistency of: Regular/Thin Discharge Activity: Return to Normal Activity, May Shower, Use Walker Weight Bearing Status: Weight bearing as tolerated Call your doctor if you observe: Fever of 101 or Higher, Inability to urinate, Inability to have a bowel movement, Shortness of breath, Chest pain, Uncontrolled pain Allergies/Adverse Reactions: Allergies No Known Allergies Allergy (Verified 07/30/17 09:00) Medications to take at Discharge Atenolol [Tenormin (beta rema)] 50 mg PO DAILY 02/20/13 Hydroxychloroquine [Plaquenil] 200 mg PO BIDCM 02/20/13 Ropinirole HCl [Requip] 2 mg PO QHS PRN PRN 02/20/13 Gabapentin 400 mg PO 5X/DAY 05/05/13 Cyclobenzaprine [Flexeril] 10 mg PO TID PRN PRN 08/24/13 Infliximab [Remicade] 5 mg IV QMONTH 08/24/13 Multivitamins,Therapeutic [Multivitamin] 1 tablet PO DAILY 08/24/13 Duloxetine Hcl [Cymbalta] 60 mg PO DAILY 05/10/15 Calcium Carbonate [Calcium] 600 mg PO BID 08/25/15 Levothyroxine [Synthroid] 50 mcg PO DAILY 01/23/16 Lansoprazole [Prevacid] 16 mg PO BID 08/21/16 Oxycodone Myristate [Xtampza ER] 18 mg PO BID 07/07/17 Acetaminophen [Tylenol] 1,000 mg PO Q8H PRN PRN tablet 10/17/17 Bisacodyl [Dulcolax] 10 mg PO DAILY PRN tablet 10/17/17 Calcium Carb/Vitamin D [Os-Lito 500MG + D] 1 tablet PO BIDCM tablet 10/17/17 Calcium Carbonate [Tums] 500 mg PO Q4H PRN PRN tablet 10/17/17 Iron Polysaccharide Complex [Ferrex 150] 150 mg PO DAILYCM capsule 10/17/17 Melatonin 3 mg PO QHS PRN tablet 10/17/17 Menthol/Lanolin/Calamine/Znox [Calmoseptine Ointment] 1 applic TOPICAL BID@0600,2200 tube 10/17/17 Metformin(XR) [Glucophage Xr] 500 mg PO DAILYCM tablet 10/17/17 Nystatin Powder [Mycostatin Powder] 1 applic TOPICAL 0600,2200 bottle 10/17/17 Ondansetron [Zofran Odt] 4 mg PO Q6H PRN PRN tablet 10/17/17 Oxycodone CR [Oxycontin] 10 mg PO BID #14 tab 10/17/17 Oxycodone [Oxyir] 5 - 10 mg PO Q6H PRN PRN #28 tab 10/17/17 Polyethylene Glycol 3350 [Miralax] 17 gm PO DAILY packet 10/17/17 Senna/Docusate Sodium [Senokot-S] 2 tablet PO BID tablet 10/17/17 proMETHazine tablet [Phenergan tablet] 25 mg PO Q6H PRN PRN tablet 10/17/17 The following prescriptions were given: Oxycodone [Oxyir] 5 - 10 mg PO Q6H PRN PRN #28 tab PRN Reason: Severe Pain (6-10/10) Oxycodone CR [Oxycontin] 10 mg PO BID #14 tab Primary Care Physician: Fadumo Mandel DO [Primary Care Provider] - Please follow up with your Primary Care Physician in: 1 week. Please Follow Up With: DEEP Lam When: 2 weeks. Please Follow Up With: DEEP Holly When: 2 weeks. Please Follow Up With: Dr. Rosas When: 2 weeks. Proposed Discharge Date: 10/20/17
--- NOTE | 2017-10-17 22:06 | DS.PCM_ITS ---
Discharge Date and Diagnosis - Problem List Patient Problems: Active and Suspected Problems Restless leg syndrome (Acute) Date of Admission: 09/19/17 Date of Discharge: 10/20/17 - Primary Discharge Diagnosis Active and Suspected Problems Restless leg syndrome (Acute) - Secondary Discharge Diagnosis Chronic Problems Morbid obesity (Chronic) Fibromyalgia (Chronic) IBS (irritable bowel syndrome) (Chronic) Lumbar spinal stenosis (Chronic) Muscle spasm (Chronic) Constipation (Chronic) Depression (Chronic) Neuropathic pain (Chronic) Rheumatoid arthritis (Chronic) Insomnia (Chronic) Diabetes mellitus (Chronic) Nausea (Chronic) GERD (gastroesophageal reflux disease) (Chronic) Sleep apnea (Chronic) Obstructive sleep apnea (Chronic) Peripheral neuropathy (Chronic) Hypothyroidism (Chronic) Chronic low back pain (Chronic) Psoriatic arthritis (Chronic) Type 2 diabetes mellitus (Chronic) Hypertension (Chronic) Hospital Course and Treatment Imaging Results: 09/20/17 10:42 Diet: Calorie Controlled Food consistency:: Regular Liquid Consistency:: Regular/Thin Is pt able to select menu?: Yes Diet Comments: carb control, low cholesterol How many daily calories?: 1800 calorie Clinical Impression(s) from Imaging Studies Chest X-Ray 09/28/17 14:25 Abdomen X-Ray 10/05/17 10:15 IMPRESSION: No bowel obstruction. Constipation. Electronically Signed: Lázaro John, at 15:15 EDT Tel , Service support , Labs (Last 48 Hours) 10/16/17 10/17/17 07:02 06:50 POC Glucose 124 H 101 Operations: None, - - Epidural injection Procedures: None Summary of Care Provided: The patient is a 71 year old Female with below past medical history hospitalized for lumbar spinal surgery 09/13/[address] Aby Rosas, admitted to TCU with debility, here for rehabilitation, strengthening, prior to discharge home with family. Discharge to [facility] for continued care. Discharge Diet: No Restrictions Discharge Activity: Return to Normal Activity, May Shower, Use Walker Weight Bearing Status: Weight bearing as tolerated Call your doctor if you observe: Fever of 101 or Higher, Inability to urinate, Inability to have a bowel movement, Shortness of breath, Chest pain, Uncontrolled pain Home Medications: Medications to take at Discharge Atenolol [Tenormin (beta rema)] 50 mg PO DAILY 02/20/13 Hydroxychloroquine [Plaquenil] 200 mg PO BIDCM 02/20/13 Ropinirole HCl [Requip] 2 mg PO QHS PRN PRN 02/20/13 Gabapentin 400 mg PO 5X/DAY 05/05/13 Cyclobenzaprine [Flexeril] 10 mg PO TID PRN PRN 08/24/13 Infliximab [Remicade] 5 mg IV QMONTH 08/24/13 Multivitamins,Therapeutic [Multivitamin] 1 tablet PO DAILY 08/24/13 Duloxetine Hcl [Cymbalta] 60 mg PO DAILY 05/10/15 Calcium Carbonate [Calcium] 600 mg PO BID 08/25/15 Levothyroxine [Synthroid] 50 mcg PO DAILY 01/23/16 Lansoprazole [Prevacid] 16 mg PO BID 08/21/16 Oxycodone Myristate [Xtampza ER] 18 mg PO BID 07/07/17 Acetaminophen [Tylenol] 1,000 mg PO Q8H PRN PRN tablet 10/17/17 Bisacodyl [Dulcolax] 10 mg PO DAILY PRN tablet 10/17/17 Calcium Carb/Vitamin D [Os-Lito 500MG + D] 1 tablet PO BIDCM tablet 10/17/17 Calcium Carbonate [Tums] 500 mg PO Q4H PRN PRN tablet 10/17/17 Iron Polysaccharide Complex [Ferrex 150] 150 mg PO DAILYCM capsule 10/17/17 Melatonin 3 mg PO QHS PRN tablet 10/17/17 Menthol/Lanolin/Calamine/Znox [Calmoseptine Ointment] 1 applic TOPICAL BID@0600, 2200 tube 10/17/17 Metformin(XR) [Glucophage Xr] 500 mg PO DAILYCM tablet 10/17/17 Nystatin Powder [Mycostatin Powder] 1 applic TOPICAL 0600,2200 bottle 10/17/17 Ondansetron [Zofran Odt] 4 mg PO Q6H PRN PRN tablet 10/17/17 Oxycodone CR [Oxycontin] 10 mg PO BID #14 tab 10/17/17 Oxycodone [Oxyir] 5 - 10 mg PO Q6H PRN PRN #28 tab 10/17/17 Polyethylene Glycol 3350 [Miralax] 17 gm PO DAILY packet 10/17/17 Senna/Docusate Sodium [Senokot-S] 2 tablet PO BID tablet 10/17/17 proMETHazine tablet [Phenergan tablet] 25 mg PO Q6H PRN PRN tablet 10/17/17 Following Prescrptions Were Given to Patient: Oxycodone [Oxyir] 5 - 10 mg PO Q6H PRN PRN #28 tab PRN Reason: Severe Pain (-01/29) Oxycodone CR [Oxycontin] 10 mg PO BID #14 tab Primary Care Physician: Fadumo Mandel DO [Primary Care Provider] - Please follow up with your Primary Care Physician in: 1 week. Please Follow Up With: DEEP Lam When: 2 weeks. Please Follow Up With: DEEP Holly When: 2 weeks. Please Follow Up With: Dr. Rosas When: 2 weeks. Disposition: Asstd Living/Non-Skill NH Minutes spent on discharge:: 35 Patient Condition:: Stable Medical Necessity - Tobacco Use Smoking Status: Never smoker Tobacco Use: Non-smoker Meaningful Use Info Meaningful Use Diagnoses (Choose all that apply): None applicable
--- NOTE | 2017-10-17 22:06 | PCM.TXEXTCAR ---
- Diet 09/20/17 10:42 Diet: Calorie Controlled Food consistency:: Regular Liquid Consistency:: Regular/Thin Is pt able to select menu?: Yes Diet Comments: carb control, low cholesterol How many daily calories?: 1800 calorie - Routine Orders/Code Status Suppository Type: Dulcolax 10mg Suppository Frequency: Daily PRN Code Status: Full Code - Wound(s) Back Wound Type: Surgical Incision Dressing Change: Dry Sterile Dressing - Therapies Weight Bearing: Weight bearing as tolerated Extremity Affected:: Bilateral Lower Physical Therapy: Eval and Treat Occupational Therapy: Eval and Treat - Problem/Diagnosis (1) Lumbar spinal stenosis Status: Chronic Current Visit: Yes (2) Muscle spasm Status: Chronic Current Visit: Yes (3) Constipation Status: Chronic Current Visit: Yes (4) Depression Status: Chronic Current Visit: Yes (5) Neuropathic pain Status: Chronic Current Visit: Yes (6) Rheumatoid arthritis Status: Chronic Current Visit: Yes (7) Insomnia Status: Chronic Current Visit: Yes (8) Diabetes mellitus Status: Chronic Current Visit: Yes (9) Nausea Status: Chronic Current Visit: Yes (10) GERD (gastroesophageal reflux disease) Status: Chronic Current Visit: Yes (11) Restless leg syndrome Status: Acute Current Visit: Yes (12) Hypertension Status: Chronic Current Visit: No (13) Sleep apnea Status: Chronic Current Visit: Yes - Allergies/Procedures Done in Hospital Allergies/Adverse Reactions: Allergies No Known Allergies Allergy (Verified 07/30/17 09:00) - Type of Care/Length of Stay Estimated LOS: More Than 30 Days Type of Care Needed: Intermediate Rehab Potential: Fair Prognosis: Fair - Additional Orders/Day of Discharge Day of Discharge: 10/20/17 - Dietary and Speech Recommendations Dietitian Recommendations/Changes: Please reweigh res for accuracy as question 16.7 kg wt loss x 1 wk. - Follow Up Care Primary Care Physician: Fadumo Mandel DO [Primary Care Provider] - Please follow up with your Primary Care Physician in: 1 week. Please Follow Up With: DEEP Lam When: 2 weeks. Please Follow Up With: DEEP Holly When: 2 weeks. Please Follow Up With: Dr. Rosas When: 2 weeks.
[2017-10-18] MEDS: Gabapentin 400 MG Capsule PO ×5 (05:13→21:48)
[2017-10-18] MEDS: DULoxetine Hcl 30 MG Capsule 60 MG PO (05:13)
[2017-10-18] MEDS: Enoxaparin 40 MG/0.4 ML Syringe SC (05:13)
[2017-10-18] MEDS: Pantoprazole Sodium 20 MG Tablet PO ×2 (05:13→17:50)
[2017-10-18] MEDS: Senna/Docusate Sodium 1 Tablet 2 TABLET PO ×2 (05:14→17:49)
[2017-10-18] MEDS: Menthol/Lanolin/Calamine/Znox 113 GM Tube 1 APPLIC TOPICAL ×2 (05:14→21:48)
[2017-10-18] MEDS: Nystatin Powder 15gm Bottle 1 APPLIC TOPICAL ×2 (05:14→21:49)
[2017-10-18] MEDS: Levothyroxine 50 MCG Tablet PO (05:14)
[2017-10-18] MEDS: oxyCODONE HCl Cr 10 MG Tablet PO ×2 (05:19→17:52)
[2017-10-18] MEDS: Atenolol 50 MG Tablet PO (05:20)
[2017-10-18 06:41] LABS: Bedside Glucose 101 mg/dL (70-110)
[2017-10-18] MEDS: Calcium Carb/Vitamin D 1 TABLET Tablet PO ×2 (08:27→17:50)
[2017-10-18] MEDS: Hydroxychloroquine 200 MG Tablet PO ×2 (08:27→17:50)
[2017-10-18] MEDS: Multivitamins,Therapeutic Tablet 1 TABLET PO (08:27)
[2017-10-18] MEDS: Iron Polysaccharide Complex 150 MG CAPSULE PO (08:27)
[2017-10-18] MEDS: oxyCODONE 5 MG Tablet PO (08:29)
--- NOTE | 2017-10-18 09:55 | CASEMGMT ---
Social Work Telephone call to [facility] ([facility]), Debra. This director social making referral for extended care facility in the event that resident does not win appeal. Debra reporting to be able to accept resident. Clinical information faxed. Spoke with resident in room. Resident is agreeable to above discharge planning thus far. Resident requesting for transportation to be set up via [facility] at time of discharge. Resident aware that [facility] will be private pay. Resident voicing to have no concerns with private pay. Support given. Transfer form initiated. Telephone call to [facility], Transportation set up for 10/20/17 at 1300. Transportation form completed and placed with resident discharge information. PASRR completed in [facility] and faxed to [facility] along with orders. Proposed discharge date: 10/20/17 pending appeal. PLAN: Discharge to [facility] under private pay unless resident wins appeal, if resident wins appeal resident to continue with further care and treatment on the Transitional Care Unit. Will continue to follow as needed. Arminda TRUONG, PROCESS DEVELOPMENT ENGINEER
[2017-10-18] MEDS: Acetaminophen 500 MG Tablet 1000 MG PO (12:06)
[2017-10-18 15:46] VITALS: BP 131/55; PULSE 62; RESP 16; TEMP 35.6; O2SAT 92
[2017-10-19] MEDS: Acetaminophen 500 MG Tablet 1000 MG PO ×2 (02:32→14:56)
[2017-10-19] MEDS: oxyCODONE HCl Cr 10 MG Tablet PO ×2 (05:13→17:34)
[2017-10-19] MEDS: Gabapentin 400 MG Capsule PO ×5 (05:13→21:45)
[2017-10-19] MEDS: DULoxetine Hcl 30 MG Capsule 60 MG PO (05:13)
[2017-10-19] MEDS: Enoxaparin 40 MG/0.4 ML Syringe SC (05:14)
[2017-10-19] MEDS: Atenolol 50 MG Tablet PO (05:14)
[2017-10-19] MEDS: Nystatin Powder 15gm Bottle 1 APPLIC TOPICAL ×2 (05:14→21:45)
[2017-10-19] MEDS: Senna/Docusate Sodium 1 Tablet 2 TABLET PO ×2 (05:14→17:30)
[2017-10-19] MEDS: Pantoprazole Sodium 20 MG Tablet PO ×2 (05:14→17:29)
[2017-10-19] MEDS: Levothyroxine 50 MCG Tablet PO (05:14)
[2017-10-19] MEDS: Menthol/Lanolin/Calamine/Znox 113 GM Tube 1 APPLIC TOPICAL ×2 (05:14→21:44)
[2017-10-19 07:01] LABS: Bedside Glucose 101 mg/dL (70-110)
[2017-10-19] MEDS: Iron Polysaccharide Complex 150 MG CAPSULE PO (08:59)
[2017-10-19] MEDS: Multivitamins,Therapeutic Tablet 1 TABLET PO (09:01)
[2017-10-19] MEDS: Calcium Carb/Vitamin D 1 TABLET Tablet PO ×2 (09:02→16:09)
[2017-10-19] MEDS: Hydroxychloroquine 200 MG Tablet PO ×2 (09:02→16:10)
[2017-10-19] MEDS: Calcium Carbonate 500 MG Tablet PO (12:25)
--- NOTE | 2017-10-19 13:07 | CASEMGMT ---
Social Work Telephone call from [facility], resident won appeal and will continue with stay on the Transitional Care Unit. Spoke with resident in room, resident is planning to continue with stay and is reporting to have gotten a call from [facility] as well. Telephone call to [facility], this group social worker canceling referral at this time. Nursing staff aware. Will continue to follow. Arminda TRUONG, VALVE SETTER
[2017-10-19 15:33] VITALS: BP 144/83; PULSE 62; RESP 16; TEMP 36.3; O2SAT 96
[2017-10-19] MEDS: Pramipexole Di-HCl 1 MG Tablet PO (23:32)
[2017-10-20] MEDS: oxyCODONE HCl Cr 10 MG Tablet PO ×2 (04:18→18:32)
[2017-10-20] MEDS: Gabapentin 400 MG Capsule PO ×5 (04:20→21:30)
[2017-10-20] MEDS: Nystatin Powder 15gm Bottle 1 APPLIC TOPICAL ×2 (04:20→21:31)
[2017-10-20] MEDS: DULoxetine Hcl 30 MG Capsule 60 MG PO (04:20)
[2017-10-20] MEDS: Enoxaparin 40 MG/0.4 ML Syringe SC (04:20)
[2017-10-20] MEDS: Menthol/Lanolin/Calamine/Znox 113 GM Tube 1 APPLIC TOPICAL ×2 (04:20→21:30)
[2017-10-20] MEDS: Atenolol 50 MG Tablet PO (04:21)
[2017-10-20] MEDS: Levothyroxine 50 MCG Tablet PO (04:21)
[2017-10-20] MEDS: Pantoprazole Sodium 20 MG Tablet PO (04:21)
[2017-10-20 07:06] LABS: Bedside Glucose 99 mg/dL (70-110)
--- NOTE | 2017-10-20 07:19 | NURSING ---
pt states she woke up with acid reflux and caused her to have dry heaving. Lungs are clear A&P at this time. pt states throat is burning will let Martin Doherty know no redness or swelling noted during this time.
[2017-10-20] MEDS: Calcium Carb/Vitamin D 1 TABLET Tablet PO ×2 (11:12→18:26)
[2017-10-20] MEDS: Multivitamins,Therapeutic Tablet 1 TABLET PO (11:12)
[2017-10-20] MEDS: Calcium Carbonate 500 MG Tablet PO ×2 (11:12→21:29)
[2017-10-20] MEDS: Hydroxychloroquine 200 MG Tablet PO ×2 (11:12→18:28)
[2017-10-20] MEDS: Iron Polysaccharide Complex 150 MG CAPSULE PO (11:12)
[2017-10-20 15:33] VITALS: BP 141/63; PULSE 60; RESP 18; TEMP 36.4; O2SAT 91
--- NOTE | 2017-10-20 15:46 | NURSING ---
Patient has c/o worsening GERD symptoms in mornings. Dr. Brantley made aware, NO to increase protonix to 40mg. 0600 meds changed to 0800 per patient request.
[2017-10-20] MEDS: Senna/Docusate Sodium 1 Tablet 2 TABLET PO (18:27)
[2017-10-20] MEDS: Pantoprazole Sodium 40 MG Tablet PO (18:32)
[2017-10-20] MEDS: Pramipexole Di-HCl 1 MG Tablet PO (21:30)
[2017-10-21] MEDS: oxyCODONE HCl Cr 10 MG Tablet PO (06:03)
[2017-10-21] MEDS: Gabapentin 400 MG Capsule PO ×5 (06:04→20:57)
[2017-10-21] MEDS: Levothyroxine 50 MCG Tablet PO (06:04)
[2017-10-21] MEDS: Enoxaparin 40 MG/0.4 ML Syringe SC (06:04)
[2017-10-21] MEDS: Menthol/Lanolin/Calamine/Znox 113 GM Tube 1 APPLIC TOPICAL ×2 (06:06→20:57)
[2017-10-21] MEDS: Nystatin Powder 15gm Bottle 1 APPLIC TOPICAL ×2 (06:06→20:57)
[2017-10-21 07:01] LABS: Bedside Glucose 103 mg/dL (70-110)
[2017-10-21] MEDS: Senna/Docusate Sodium 1 Tablet 2 TABLET PO ×2 (08:07→16:49)
[2017-10-21] MEDS: Hydroxychloroquine 200 MG Tablet PO ×2 (08:07→16:49)
[2017-10-21] MEDS: DULoxetine Hcl 30 MG Capsule 60 MG PO (08:07)
[2017-10-21] MEDS: Atenolol 50 MG Tablet PO (08:07)
[2017-10-21] MEDS: Multivitamins,Therapeutic Tablet 1 TABLET PO (08:07)
[2017-10-21] MEDS: Iron Polysaccharide Complex 150 MG CAPSULE PO (08:07)
[2017-10-21] MEDS: Pantoprazole Sodium 40 MG Tablet PO ×2 (08:10→16:49)
[2017-10-21] MEDS: Calcium Carb/Vitamin D 1 TABLET Tablet PO ×2 (08:10→16:49)
--- NOTE | 2017-10-21 09:17 | NURSING ---
pt requesting that sched oxycontin be d/c'd, trying to wean self off narcotics. Dr lentz notified, new order received.
--- NOTE | 2017-10-21 09:35 | CASEMGMT ---
Insurance Next update due on 10/22/17 at resident won appeal. Auth#[id number] Arminda TRUONG, REEL CUTTER
[2017-10-21] MEDS: Acetaminophen 500 MG Tablet 1000 MG PO (13:22)
[2017-10-21 16:00] VITALS: BP 130/59; PULSE 60; RESP 18; TEMP 36.6; O2SAT 97
--- NOTE | 2017-10-21 16:50 | NURSING ---
r' denies nausea at this time. ate crackers before taking evening meds. will monitor.
--- NOTE | 2017-10-22 03:30 | PCA ---
patient up to [facility], refused back brace
[2017-10-22] MEDS: Enoxaparin 40 MG/0.4 ML Syringe SC (06:06)
[2017-10-22] MEDS: Gabapentin 400 MG Capsule PO ×5 (06:06→20:32)
[2017-10-22] MEDS: Levothyroxine 50 MCG Tablet PO (06:06)
[2017-10-22] MEDS: Menthol/Lanolin/Calamine/Znox 113 GM Tube 1 APPLIC TOPICAL ×2 (06:07→20:33)
[2017-10-22] MEDS: Nystatin Powder 15gm Bottle 1 APPLIC TOPICAL ×2 (06:08→20:33)
[2017-10-22 06:46] LABS: Bedside Glucose 94 mg/dL (70-110)
[2017-10-22] MEDS: Iron Polysaccharide Complex 150 MG CAPSULE PO (08:26)
[2017-10-22] MEDS: Hydroxychloroquine 200 MG Tablet PO ×2 (08:26→17:21)
[2017-10-22] MEDS: Calcium Carb/Vitamin D 1 TABLET Tablet PO ×2 (08:26→17:20)
[2017-10-22] MEDS: Multivitamins,Therapeutic Tablet 1 TABLET PO (08:26)
[2017-10-22] MEDS: Atenolol 50 MG Tablet PO (08:26)
[2017-10-22] MEDS: Pantoprazole Sodium 40 MG Tablet PO ×2 (08:26→17:21)
[2017-10-22] MEDS: DULoxetine Hcl 30 MG Capsule 60 MG PO (08:26)
[2017-10-22] MEDS: Acetaminophen 500 MG Tablet 1000 MG PO (08:27)
--- NOTE | 2017-10-22 12:35 | CASEMGMT ---
Insurance Clinical information faxed. Pending continued stay approval. Auth#[id number] Arminda TRUONG, DATA BASE DESIGN ANALYST
[2017-10-22 15:39] VITALS: BP 126/46; PULSE 72; RESP 18; TEMP 36.8; O2SAT 94
[2017-10-22] MEDS: Pramipexole Di-HCl 1 MG Tablet PO (22:13)
[2017-10-23] MEDS: Gabapentin 400 MG Capsule PO ×5 (05:36→21:43)
[2017-10-23] MEDS: Nystatin Powder 15gm Bottle 1 APPLIC TOPICAL ×2 (05:36→21:42)
[2017-10-23] MEDS: Levothyroxine 50 MCG Tablet PO (05:36)
[2017-10-23] MEDS: Enoxaparin 40 MG/0.4 ML Syringe SC (05:36)
[2017-10-23] MEDS: Menthol/Lanolin/Calamine/Znox 113 GM Tube 1 APPLIC TOPICAL ×2 (05:37→21:44)
[2017-10-23 06:58] LABS: Absolute Lymphocyte Count 1.57 X10^3/ul (0.83-4.51); Absolute Neutrophil Count 4.2 X10^3/uL (2.0-7.7); Basophil% 1.4 % (0-1); Eosinophil# 0.49 X10^3/uL; Hematocrit 36.5 % (37-47); Hemoglobin 10.9 g/dl (12.0-15.0); Lymphocyte # 1.57 X10^3/ul (4.0); Lymphocyte % 22.4 % (19-41); Mean Corp Hgb Conc 29.9 g/gl (32-36); Mean Corpuscular Hgb 26.8 pg (27.0-32.0); Mean Corpuscular Volume 89.9 fL (81-99); Mean Platelet Vol. 9.2 fl (6.2-12.0); Monocyte% 8.6 % (0-10); Neutrophil # 4.23 X10^3/uL (2.7-7.7); Neutrophil % 60.5 % (47-70); Platelet Count 384 K/mm3 (150-450); RBC Distribution Width CV 14.5 % (11.6-14.6); RBC Distribution Width SD 47.4 fl (35.1-43.9); Red Blood Count 4.06 M/mm3 (4.2-5.4)
[2017-10-23 07:02] LABS: Anion Gap 6 (5-15); BUN 10 mg/dL (7-18); BUN/Creat Ratio 12.7 RATIO (10-20); Calcium,Total 8.8 mg/dL (8.5-10.1); Chloride 105 mmol/L (98-107); Creatinine, Serum 0.79 mg/dL (0.55-1.02); EST Glomerular Filtration Rate 76 mL/min (>60); Est Glom Filt Rate - Afr Amer 92 mL/min (>60); Estimated Creatinine Clearance 38.94 ml/min; Glucose 95 mg/dL (74-106); Potassium 3.9 mmol/L (3.5-5.1); Sodium Level 140 mmol/L (136-145)
[2017-10-23 07:04] LABS: POSITIVE COUNT NO; POSITIVE DIFFERENTIAL NO; POSITIVE MORPHOLOGY NO
[2017-10-23 07:15] LABS: Bedside Glucose 104 mg/dL (70-110)
[2017-10-23] MEDS: Pantoprazole Sodium 40 MG Tablet PO ×2 (08:24→17:07)
[2017-10-23] MEDS: DULoxetine Hcl 30 MG Capsule 60 MG PO (08:24)
[2017-10-23] MEDS: Atenolol 50 MG Tablet PO (08:24)
[2017-10-23] MEDS: Iron Polysaccharide Complex 150 MG CAPSULE PO (08:24)
[2017-10-23] MEDS: Multivitamins,Therapeutic Tablet 1 TABLET PO (08:24)
[2017-10-23] MEDS: Hydroxychloroquine 200 MG Tablet PO ×2 (08:24→17:07)
[2017-10-23] MEDS: Calcium Carb/Vitamin D 1 TABLET Tablet PO ×2 (08:24→17:06)
[2017-10-23] MEDS: Acetaminophen 500 MG Tablet 1000 MG PO (11:07)
[2017-10-23 15:45] VITALS: BP 139/61; PULSE 55; RESP 18; TEMP 36.4; O2SAT 95
[2017-10-23] MEDS: Senna/Docusate Sodium 1 Tablet 2 TABLET PO (17:07)
[2017-10-24] MEDS: Gabapentin 400 MG Capsule PO ×5 (05:53→21:22)
[2017-10-24] MEDS: Menthol/Lanolin/Calamine/Znox 113 GM Tube 1 APPLIC TOPICAL ×2 (05:53→21:22)
[2017-10-24] MEDS: Nystatin Powder 15gm Bottle 1 APPLIC TOPICAL ×2 (05:53→21:23)
[2017-10-24] MEDS: Enoxaparin 40 MG/0.4 ML Syringe SC (05:53)
[2017-10-24] MEDS: Levothyroxine 50 MCG Tablet PO (05:54)
[2017-10-24 06:21] LABS: Bedside Glucose 105 mg/dL (70-110)
[2017-10-24] MEDS: DULoxetine Hcl 30 MG Capsule 60 MG PO (09:02)
[2017-10-24] MEDS: Multivitamins,Therapeutic Tablet 1 TABLET PO (09:03)
[2017-10-24] MEDS: Calcium Carb/Vitamin D 1 TABLET Tablet PO ×2 (09:04→17:11)
[2017-10-24] MEDS: Iron Polysaccharide Complex 150 MG CAPSULE PO (09:04)
[2017-10-24] MEDS: Hydroxychloroquine 200 MG Tablet PO ×2 (09:04→17:12)
[2017-10-24] MEDS: Pantoprazole Sodium 40 MG Tablet PO ×2 (09:05→17:11)
[2017-10-24] MEDS: Atenolol 50 MG Tablet PO (09:06)
[2017-10-24] MEDS: Acetaminophen 500 MG Tablet 1000 MG PO (09:09)
--- NOTE | 2017-10-24 14:03 | CASEMGMT ---
Insurance Continued stay denied with last cover day begin 10/26/17 and resident to discharge or financial responsibility to begin on 10/27/17. Auth#[id number] Arminda TRUONG, MAPPING SUPERVISOR
--- NOTE | 2017-10-24 14:39 | CASEMGMT ---
Brief interview for mental status (BIMS) and resident mood interview (PHQ-9) completed on this day. BIMS score 15. PHQ-9 score 05/18
--- NOTE | 2017-10-24 15:40 | CASEMGMT ---
Social Work Communicated to resident that continued stay has been denied with last cover day being 10/26/17 and resident to discharge or financial responsibility to begin on 10/27/17. Resident planning to discharge home but requesting for discharge date to be 10/25/17 verus 10/27/17. Spoke with team, 10/25/17 is an agreeable discharge date at this time. Therapy reporting that resident is now able to meet own needs within the home. Resident plans to discharge home alone at time of discharge. Resident is agreeable to this home health care social worker contacting resident [id number], Leonie in regards to discharge planning. This home health care social worker communicating that physical and occupational therapy are recommending for resident to have continued services through home health care. Resident is agreeable to recommendation and requesting for home health services to be set up through [facility] health care. Resident reporting to have all needed durable medical equipment already set up within the home. Resident requesting for transportation to be set up via wheelchair van at time of discharge. Resident voicing no further needs. Telephone call to Leonie and updated Leonie on discharge plan and date. Support given. Telephone call to Anastasia/Ismael, wheelchair van transportation set up for 10/25/17 @ 2:30pm. Transportation form completed and placed with resident discharge information. Resident agreeable to time of transportation. Telephone call to Sukhdeep, referral made. [facility] to get back in contact with this home health care social worker on whether or not they are able to accept resident. Clinicals faxed. Proposed discharge date: 10/25/17 PLAN: Discharge home alone with home health services. Arminda TRUONG, KEY ACCOUNT MANAGER
[2017-10-24 16:00] VITALS: BP 136/50; PULSE 71; RESP 16; TEMP 36; O2SAT 96
--- NOTE | 2017-10-24 17:44 | HHNOTE_ITS ---
Home Health Note - Plan Overview of reason of hospitalization: 71 year old female with below past medical history hospitalized for lumbar spinal surgery 09/13/[address] Aby Rosas, admitted to TCU with debility, here for rehabilitation, strengthening, prior to discharge home. Discharge home alone, with Home Health Services. Problems: Patient was seen for Lumbar spinal stenosis (Chronic) Muscle spasm (Chronic) Constipation (Chronic) Depression (Chronic) Neuropathic pain (Chronic) Rheumatoid arthritis (Chronic) Insomnia (Chronic) Diabetes mellitus (Chronic) Nausea (Chronic) GERD (gastroesophageal reflux disease) (Chronic) Restless leg syndrome (Acute) Sleep apnea (Chronic) Complete List of Medical Problems Morbid obesity (Chronic) Fibromyalgia (Chronic) IBS (irritable bowel syndrome) (Chronic) Lumbar spinal stenosis (Chronic) Muscle spasm (Chronic) Constipation (Chronic) Depression (Chronic) Neuropathic pain (Chronic) Rheumatoid arthritis (Chronic) Insomnia (Chronic) Diabetes mellitus (Chronic) Nausea (Chronic) GERD (gastroesophageal reflux disease) (Chronic) Restless leg syndrome (Acute) Sleep apnea (Chronic) Obstructive sleep apnea (Chronic) Acute exacerbation of chronic low back pain (Acute) Peripheral neuropathy (Chronic) Hypothyroidism (Chronic) Chronic low back pain (Chronic) Psoriatic arthritis (Chronic) Type 2 diabetes mellitus (Chronic) Hypertension (Chronic) - Requirements and Reasons Disciplines Needed/Ordered: Physical Therapy Reason for Disciplines: Gait Training, Stair Training, Fall Prevention, Home Safety/Equipment Instruction, Balance and/or Posture Training, Transfer Training Related To: Physical Impairments, Unsteady Gait/Balance, Fall Risk Patient is unable to leave the home: Without Aid of Supportive Devices (crutches , cane, wheelchair, walker), Without the assistance of another person - Additional Disciplines Additional Disciplines Needed/Ordered: Occupational Therapy
[2017-10-24] MEDS: Pramipexole Di-HCl 1 MG Tablet PO (21:22)
[2017-10-25] MEDS: Gabapentin 400 MG Capsule PO ×3 (06:13→13:28)
[2017-10-25] MEDS: Levothyroxine 50 MCG Tablet PO (06:13)
[2017-10-25] MEDS: Nystatin Powder 15gm Bottle 1 APPLIC TOPICAL (06:14)
[2017-10-25] MEDS: Menthol/Lanolin/Calamine/Znox 113 GM Tube 1 APPLIC TOPICAL (06:14)
[2017-10-25 07:01] LABS: Bedside Glucose 105 mg/dL (70-110)
[2017-10-25] MEDS: Iron Polysaccharide Complex 150 MG CAPSULE PO (07:49)
[2017-10-25] MEDS: Atenolol 50 MG Tablet PO (07:49)
[2017-10-25] MEDS: Pantoprazole Sodium 40 MG Tablet PO (07:49)
[2017-10-25] MEDS: DULoxetine Hcl 30 MG Capsule 60 MG PO (07:50)
[2017-10-25] MEDS: Calcium Carb/Vitamin D 1 TABLET Tablet PO (07:50)
[2017-10-25] MEDS: Multivitamins,Therapeutic Tablet 1 TABLET PO (07:50)
[2017-10-25] MEDS: Acetaminophen 500 MG Tablet 1000 MG PO (07:50)
[2017-10-25] MEDS: Hydroxychloroquine 200 MG Tablet PO (07:50)
[2017-10-25 13:37] VITALS: BP 123/51; PULSE 57; TEMP 36.8; O2SAT 96
[2017-10-25 14:57] VITALS: BP 142/63; PULSE 59; RESP 20; TEMP 36.7; O2SAT 96
--- NOTE | 2017-10-25 17:09 | CASEMGMT ---
Insurance Notified insurance of resident discharge on this day, 10/25/17. Auth#[id number] Arminda TRUONG, STATE GAME PROTECTOR
--- NOTE | 2017-10-30 09:20 | MDS.RN ---
Information for the mds was obtained from review of the clinical record, interview of resident, staff, and direct observation of resident's care.
== END 2017-10-25 15:53 | disposition home health service (06) | DRG 560 ==
PROVIDERS: Admitting Provider Family Medicine Geriatric Medicine; Family Provider Internal Medicine; PCP Internal Medicine; Visit Provider Family Medicine Geriatric Medicine
DX: Z47.89 Encounter for other orthopedic aftercare (principal); Z68.43 Body mass index [BMI] 50.0-59.9, adult; F32.9 Major depressive disorder, single episode, unspecified; M06.9 Rheumatoid arthritis, unspecified; K21.9 Gastro-esophageal reflux disease without esophagitis; G25.81 Restless legs syndrome; B35.4 Tinea corporis; E03.9 Hypothyroidism, unspecified; E66.01 Morbid (severe) obesity due to excess calories; Z71.3 Dietary counseling and surveillance; M79.7 Fibromyalgia; K58.9 Irritable bowel syndrome, unspecified; G47.33 Obstructive sleep apnea (adult) (pediatric); E11.42 Type 2 diabetes mellitus with diabetic polyneuropathy; Z79.899 Other long term (current) drug therapy; G89.29 Other chronic pain; L40.50 Arthropathic psoriasis, unspecified; I10 Essential (primary) hypertension; M48.061 Spinal stenosis, lumbar region without neurogenic claudication; D50.9 Iron deficiency anemia, unspecified
CPT/HCPCS: 36415; 71046; 74019; 80048; 81001; 82962; 85025; 87077; 87086; 87088; 87186; 92610; 97110; 97116; 97162; 97166; 97530; 97535; 97802

== ENCOUNTER → 2017-10-29 15:22 | Outpatient (CLI) | payer MEDICARE, SELFPAY ==
--- NOTE | 2017-10-29 15:23 | RAD_ITS ---
STUDY: XR SPINE ENTIRE THORACIC T LUMBAR (W SKULL, CERVICAL AND SACRAL SPINE IF PERFORMED) REASON FOR EXAM: Female, 71 years old. Postop TECHNIQUE: Radiological exam, spine, entire thoracic and lumbar, including skull, cervical and sacral spine if performed (eg, scoliosis evaluation); 2 or 3 views. 2 views. COMPARISON: 08/23/2016 FINDINGS: Since the previous study, patient has undergone pedicle screw fusion surgery from T10 to S1. There are also screws that traverse the SI joints, and there has been a laminectomy. The hardware is intact and free of complication. There is intervertebral disc space narrowing throughout the thoracic and lumbar spine with sclerotic endplate changes. No acute fracture or suspicious osseous lesion. RAD/Scoliosis 2 or 3 views IMPRESSION: Postsurgical changes throughout the lower thoracic and lumbar spine. Hardware is intact and free of complication Degenerative changes throughout the visualized spine. No demonstrated fracture or suspicious osseous lesion Electronically Signed: Rick Reynolds MD at 15:52 EDT , Service support ,
== END ==
PROVIDERS: Family Provider Internal Medicine; PCP Internal Medicine; Visit Provider Orthopaedic Surgery
DX: M48.062 Spinal stenosis, lumbar region with neurogenic claudication (principal)
CPT/HCPCS: 72082

== ENCOUNTER → 2017-12-05 10:32 | Outpatient (CLI) | payer MEDICARE, SELFPAY | PROVIDERS: Family Provider Internal Medicine; PCP Internal Medicine; Visit Provider Internal Medicine | DX: R60.0 Localized edema (principal) | CPT/HCPCS: 93970 ==

== ENCOUNTER → 2017-12-09 09:03 | Outpatient (CLI) | payer MEDICARE, SELFPAY | PROVIDERS: Family Provider Internal Medicine; PCP Internal Medicine; Visit Provider Internal Medicine | DX: R05 Cough (principal) | CPT/HCPCS: 71046 ==

== ENCOUNTER → 2017-12-17 09:26 | Outpatient (CLI) | payer MEDICARE, SELFPAY | PROVIDERS: Family Provider Internal Medicine; PCP Internal Medicine; Visit Provider Orthopaedic Surgery | DX: Z98.1 Arthrodesis status (principal) | CPT/HCPCS: 72082 ==

== ENCOUNTER → 2018-02-11 09:12 | Outpatient (CLI) | payer MEDICARE, SELFPAY ==
--- NOTE | 2018-02-11 09:16 | RAD_ITS ---
STUDY: XR SPINE ENTIRE THORACIC T LUMBAR (W SKULL, CERVICAL AND SACRAL SPINE IF PERFORMED) REASON FOR EXAM: Female, 72 years old. Back pain, postoperative follow-up. TECHNIQUE: Radiological exam, spine, entire thoracic and lumbar, including skull, cervical and sacral spine if performed (eg, scoliosis evaluation); 2 or 3 views. COMPARISON: Scoliosis series 12/17/2017. FINDINGS: There is mild peribronchial cuffing, lungs otherwise clear. Whether any symptoms of bronchiolitis/reactive airway/URI? Normal cardiomediastinal silhouette. Right shoulder arthroplasty. Prominent degenerative features of the left glenohumeral joint. Multilevel low thoracic and lumbar posterior navneet and pedicle screw fixation with fixation screws through the sacroiliac joints. T10-S2 fixation. Surgical construct is intact. There is mild scoliosis. There is prominent kyphosis at T9-T10, stable. Lordosis of the lumbar spine is normal. There are mild multilevel disc degenerative features. Interbody spacer at L4-L5. Moderately prominent stool burden of the proximal large bowel, decompressed distally. Scattered gas of the small and large bowel. Unremarkable pattern. No free air. Grossly normal size and position of the solid organs of the abdomen. Mild degenerative features of the hip joints bilaterally. RAD/Scoliosis 2 or 3 views IMPRESSION: Surgical construct intact. Kyphoscoliosis is stable. Electronically Signed: Kole Perez, at 10:29 EDT Tel , Service support ,
== END ==
PROVIDERS: Family Provider Internal Medicine; PCP Internal Medicine; Referring Provider Orthopaedic Surgery; Visit Provider Orthopaedic Surgery
DX: Z98.1 Arthrodesis status (principal)
CPT/HCPCS: 72082

== ENCOUNTER → 2018-04-01 14:20 | Outpatient (CLI) | payer MEDICARE, SELFPAY ==
--- NOTE | 2018-04-01 14:22 | RAD_ITS ---
STUDY: X-RAY - Thoracolumbar spine REASON FOR EXAM: Female, 72 years old. Status post spinal fusion. Out of brace. TECHNIQUE: Multiple views of the thoracolumbar. COMPARISON: 02/11/2018 FINDINGS: There are stable postsurgical changes from prior lower thoracic and lumbar fusion with posterior rods, pedicle screw fixation with fixation screws through the sacroiliac joints. The hardware is intact. There is stable mild scoliosis. There is stable kyphosis at T9-T10. There is stable mild multilevel disc degenerative disease. There is no acute fracture or dislocation. RAD/Scoliosis 2 or 3 views IMPRESSION: Stable postsurgical changes of the thoracolumbar spine with intact hardware in satisfactory alignment. Stable degenerative changes. Stable kyphosis at T9-T10. No acute fracture or dislocation. Electronically Signed: Lázaro John, at 15:16 EST Tel , Service support ,
--- OUTSIDE RECORDS SUMMARY | 2018-05-18 19:55 | XMS RPT_ITS ---
:1945 Author Organization [place] Support Name Relationship Address Phone J[address]DA [address] + [place] [address] R Unknown Unavailable Unavailable JAYDA [address] + [place] [address] R Unknown Unavailable Unavailable JAYDA [address] + [place] [address] R Unknown Unavailable Unavailable JAYDA [address] + [place] [address] R Unknown Unavailable Unavailable JAYDA [address] + [place] [address] R Unknown Unavailable Unavailable JAYDA [address] + [place] [address] R Unknown Unavailable Unavailable JAYDA [address] + [place] [address] R Unknown Unavailable Unavailable JAYDA [address] + [place] [address] R Unknown Unavailable Unavailable JAYDA [address] + [place] [address] R Unknown Unavailable Unavailable JAYDA [address] + [place] [address] R Unknown Unavailable Unavailable JAYDA [address] + [place] [address] R Unknown Unavailable Unavailable JAYDA [address] + [place] [address] R Unknown Unavailable Unavailable JAYDA [address] + [place] [address] R Unknown Unavailable Unavailable JAYDA [address] + [place] [address] R Unknown Unavailable Unavailable TRESA, DON Unknown Unavailable Unavailable VIRGIL MAHONEY Family Member Unavailable + JAYDA RODRIGUEZ Unrelated Friend Unavailable + TRESA, DON Unknown Unavailable Unavailable IVRGIL MAHONEY Family Member Unavailable + JAYDA RODRIGUEZ Unknown Unavailable + TRESA, DNO Unknown Unavailable Unavailable VIRGIL MAHONEY Family Member Unavailable + JAYDA RODRIGUEZ Unknown Unavailable + JAYDA [address] + [place] [address] R Unknown Unavailable Unavailable TRESA, DON Unknown Unavailable Unavailable VIRGIL MAHONEY Family Member Unavailable + JAYDA RODRIGUEZ Unknown Unavailable + TRESA, DON Unknown Unavailable Unavailable VIRGIL MAHONEY Family Member Unavailable + JAYDA RODRIGUEZ Unknown Unavailable + TRESA, DON Unknown Unavailable Unavailable VIRGIL MAHONEY Family Member Unavailable + JAYDA RODRIGUEZ Unknown Unavailable + TRESA, DON Unknown Unavailable Unavailable VIRGIL MAHONEY Family Member Unavailable + JAYDA RODRIGUEZ Unknown Unavailable + TRESA, DON Unknown Unavailable Unavailable VIRGIL MAHONEY Family Member Unavailable + JAYDA RODRIGUEZ Unknown Unavailable + TRESA, DON Unknown Unavailable Unavailable VIRGIL MAHONEY Family Member Unavailable + JAYDA RODRIGUEZ Unknown Unavailable + TRESA, DON Unknown Unavailable Unavailable VIRGIL MAHONEY Family Member Unavailable + JAYDA RODRIGUEZ Unknown Unavailable + JAYDA [address] + [place] [address] R Unknown Unavailable Unavailable JAYDA R[address] + [place] [address] R Unknown Unavailable Unavailable JENNIFER JAYDA [address] + [place] [address] R Unknown Unavailable Unavailable ASUNCIONKENNEDI JAYDA [address] + [place] [address] R Unknown Unavailable Unavailable JENNIFER JAYDA [address] + [place] [address] R Unknown Unavailable Unavailable ASUNCIONKENNEDI JAYDA [address] + [place] [address] R Unknown Unavailable Unavailable JENNIFER JAYDA [address] + [place] [address] R Unknown Unavailable Unavailable JENNIFER JAYDA [address] + [place] [address] R Unknown Unavailable Unavailable JENNIFER JAYDA [address] + [place] [address] R Unknown Unavailable Unavailable JENNIFER JAYDA [address] + [place] [address] R Unknown Unavailable Unavailable JENNIFER JAYDA [address] + [place] [address] R Unknown Unavailable Unavailable JENNIFER JAYDA [address] + [place] [address] R Unknown Unavailable Unavailable JENNIFER JAYDA [address] + [place] [address] R Unknown Unavailable Unavailable Care Team Providers Name Role Phone ABY ROSAS Admitting Unavailable ABY ROSAS Attending Unavailable CONSULT, GENERAL MEDICINE Consulting Unavailable ABY ROSAS Referring Unavailable BHAVANA CARRENO Attending Unavailable ABY ROSAS Attending Unavailable ABY ROSAS Referring Unavailable ROSANNE HUYNH Referring Unavailable HEMALATHA HOLLY Attending Unavailable ABY ROSAS Attending Unavailable SELF, SELF Referring Unavailable CONNERIMKARL ESTRELLA L Attending Unavailable GRIMME KARL L Referring Unavailable KARL LEUNG Attending Unavailable GRIMME, KARL L Referring Unavailable ROSANNE HUYNH Attending Unavailable PHONE, [facility] Referring Unavailable CAPEK, HEMALATHA Attending Unavailable SELF, SELF Referring Unavailable CAPEK, HEMALATHA Attending Unavailable SELF, SELF Referring Unavailable Tequila DO, Fadumo Attending Unavailable Tequila DO, Fadumo Referring Unavailable Tequila DO, Fadumo Consulting Unavailable Rosas, Aby Attending Unavailable Tequila, Fadumo Referring Unavailable Rosas, Aby Attending Unavailable Rosas, Aby Referring Unavailable Tequila, Fadumo Primary Care Unavailable Tequila, Fadumo Primary Care Unavailable Ashelfah, Ghasem Admitting Unavailable Tereletsky, Isauro Attending Unavailable Ashelfah, Ghasem Admitting Unavailable Ashelfah, Ghasem Attending Unavailable Tequila, Fadumo Primary Care Unavailable Ashelfah, Ghasem Consulting Unavailable Ashelfah, Ghasem Admitting Unavailable Tereletsky, Isauro Attending Unavailable Tequila, Fadumo Primary Care Unavailable Tereletsky, Isauro Consulting Unavailable Ashelfah, Ghasem Admitting Unavailable Fernandoeletsky Isauro Attending Unavailable Tequila, Fadumo Primary Care Unavailable Tereletsky, Isauro Consulting Unavailable Rosas, Aby Attending Unavailable Rosas, Aby Referring Unavailable Tequila, Fadumo Primary Care Unavailable Tequila, Fadumo Attending Unavailable Tequila, Fadumo Referring Unavailable Tequila, Fadumo Primary Care Unavailable Rosas, Aby Attending Unavailable Rosas, Aby Referring Unavailable Tequila, Fadumo Primary Care Unavailable Basali, Ayman Attending Unavailable Basali, Ayman Referring Unavailable Tequila, Fadumo Primary Care Unavailable Rosas, Aby Attending Unavailable Rosas, Aby Referring Unavailable Tequila, Fadumo Primary Care Unavailable Vellanki Rakel Attending Unavailable Vellanki, Rakel Referring Unavailable Tequila, Fadumo Primary Care Unavailable Tequila, Fadumo Primary Care Unavailable White, Siobhan Admitting Unavailable Paintsil, [place] Attending Unavailable Basali, Ayman Consulting Unavailable White, Siobhan Admitting Unavailable White, Siobhan Attending Unavailable Tequila, Fadumo Primary Care Unavailable White, Siobhan Consulting Unavailable White, Siobhan Admitting Unavailable Paintsil, [place] Attending Unavailable Tequila, Fadumo Primary Care Unavailable Basali, Ayman Consulting Unavailable Paintsil, [place] Consulting Unavailable White, Siobhan Admitting Unavailable Paintsil, [place] Attending Unavailable Tequila, Fadumo Primary Care Unavailable Basali, Ayman Consulting Unavailable Paintsil, [place] Consulting Unavailable White, Siobhan Admitting Unavailable Paintsil, [place] Attending Unavailable Tequila, Fadumo Primary Care Unavailable Basali, Ayman Consulting Unavailable Paintsil, [place] Consulting Unavailable Rosas, Aby Attending Unavailable Tequila, Fadumo Referring Unavailable Tequila, Fadumo Primary Care Unavailable Vellanki, Rakel Attending Unavailable Vellanki, Rakel Referring Unavailable Tequila, Fadumo Primary Care Unavailable Fercho, Mello Chi Admitting Unavailable Fercho, Mello Chi Attending Unavailable Fercho, Mello Chi Referring Unavailable Tequila, Fadumo Primary Care Unavailable Rosas, Aby Attending Unavailable Tequila, Fadumo Referring Unavailable Tequila, Fadumo Primary Care Unavailable Rosas, Aby Attending Unavailable Rosas, Aby Referring Unavailable Tequila, Fadumo Primary Care Unavailable Tequila, Fadumo Attending Unavailable Tequila, Fadumo Referring Unavailable Tequila, Fadumo Primary Care Unavailable Tequila, Fadumo Attending Unavailable Tequila, Fadumo Referring Unavailable Tequila, Fadumo Primary Care Unavailable Rosas, Aby Attending Unavailable Tequila, Fadumo Referring Unavailable Tequila, Fadumo Primary Care Unavailable Rosas, Aby Attending Unavailable Rosas, Aby Referring Unavailable Tequila, Fadumo Primary Care Unavailable Rossa, Aby Attending Unavailable Tequila, Fadumo Referring Unavailable Rosas, Aby Attending Unavailable Rosas, Aby Referring Unavailable Tequila, Fadumo Primary Care Unavailable Purpose Purpose PROBLEMS PROBLEMS DATE TYPE CONDITION / CODE ATTENDING STATUS SOURCE 04/01/2018 Unknown Z98.1 - Arthrodesis Aby Rosas Active [facility] status / Community Z98.1(ICD-10) Hospital Repository 10/29/2017 Unknown M48.062 - Spinal Shama RosasAby Active [facility] stenosis, lumbar Community region with Hospital neurogenic Repository claudication / M48.062(ICD-10) 10/17/2017 Admitting Post Op Visit / HEMALATHA HOLLY Active [place] diagnosis 554() [facility] Repository 10/07/2017 Admitting Follow-up / 145() HEMALATHA HOLLY Active [place] [facility] diagnosis [facility] Repository 10/28/2017 Unknown Z47.89 - Encounter Fercho, Mello Chi Active [facility] for other orthopedic Community aftercare / Hospital Z47.89(ICD-10) Repository 10/28/2017 Unknown M48.061 - Spinal Fercho, Mello Chi Active [facility] stenosis, lumbar Community region without Hospital neurogenic Repository claudication / M48.061(ICD-10) 09/13/2017 Admitting Arthrodesis status / ABY ROSAS Active [facility] diagnosis Z98.1(ICD-10) [facility] Repository 09/13/2017 Admitting Spinal stenosis, LEN ABY Active [facility] diagnosis lumbar region [facility] without neurogenic [facility] claudication / Center M48.061(ICD-10) Repository 08/29/2017 Admitting Spinal stenosis, GRIMME, Active [facility] diagnosis lumbar region with [facility] neurogenic [facility] claudication / Center M48.062(ICD-10) Repository 08/29/2017 Admitting New Patient / ABY ROSAS Active [facility] diagnosis [id number]() [facility] Repository 08/29/2017 Admitting Encounter for other HEMALATHA HOLLY [facility] diagnosis preprocedural [facility] examination / [facility] Medical Z01.818(ICD-10) Center Repository 08/29/2017 Admitting Type 2 diabetes [facility] diagnosis mellitus without [facility] complications / [facility] Medical E11.9(ICD-10) Center Repository 08/29/2017 Admitting Essential (primary) BHAVANA CARRENO [facility] diagnosis hypertension / University I10(ICD-10) [facility] Center Repository 08/29/2017 Admitting Arthropathic EV BHAVANA [facility] diagnosis psoriasis, [place] unspecified / [facility] L40.50(ICD-10) Center Repository 08/29/2017 Admitting Gastro-esophageal EV BHAVANA [facility] diagnosis reflux disease [place] without esophagitis [facility] Medical / K21.9(ICD-10) Center Repository 08/29/2017 Admitting Nausea with EV [facility] diagnosis vomiting, [place] unspecified / [facility] R11.2(ICD-10) Center Repository 08/29/2017 Admitting Other specified BHAVANA CARRENO [facility] diagnosis postprocedural [facility] Z98.890(ICD-10) Center Repository 07/15/2017 Unknown E66.9 - Obesity, Aby Rosas Active [place] unspecified / Community E66.9(ICD-10) Hospital Repository 05/30/2017 Unknown F11.20 - Opioid BasaliKhalida Active [place] dependence, Community uncomplicated / Hospital F11.20(ICD-10) Repository PROCEDURES PROCEDURES No Procedure Records FoundVITAL SIGNS VITAL SIGNS No Vital Signs Records FoundRESULTS RESULTS 12 LEAD ELECTROCARDIOGRAM Observed: 04/23/2018 Status: F Source: [place] 2:26 PM [facility] REPOSITORY [facility] Cardiovascular Services [address] [place] [address] 12 Lead EKG 04/20/18 1307 MR#: [id number] Acct: [id number] Name: DON STRONG Rep #: [id number] : 1945 72 From: Maurice Das MD Attending Dr: Isauro Christian DO Status: DIS JOSEPHINE Ordering Dr: Rod Fajardo MD Date: 04/20/18 Location: [facility] Sex: F C Admitted: 04/20/18 Test Reason : SOB Blood Pressure : / mmHG Vent. Rate : 098 BPM Atrial Rate : 098 BPM P-R Int : 150 ms QRS Dur : 076 ms QT Int : 350 ms P-R-T Axes : 043 -05 022 degrees QTc Int : 446 ms Normal sinus rhythm Inferior infarct , age undetermined , cannot be excluded Cannot rule out Anterior infarct , age undetermined Abnormal ECG Confirmed by PIPPA CABALLERO, MAURICE ([id number]), food editor YUAN LEI ([id number]) on 04/23/2018 2:26:39 PM Referred By: PIO Confirmed By:MAURICE DAS MD 04/23/18 1426 Date Maurice Das MD CC: Fadumo Mandel DO; Isauro Christian DO; Rod Fajardo MD Signed DISCHARGE SUMMARY Observed: 04/23/2018 Status: F Source: [place] 10:05 AM [facility]POSITORY [facility] Medical Records Department [address] [place] [address] Discharge Summary 04/23/18 0905 MR#: [id number] Acct: [id number] Name: DON STRONG Rep #: [id number] : 1945 72 From: Isauro Christian DO PCP: Fadumo Mandel DO Status: DIS JOSEPHINE Y Location: [facility] [id number] Discharge Date and Diagnosis Date of Admission: 04/20/18 Date of Discharge: 04/22/18 - Primary Discharge Diagnosis #1 acute bronchitis-suspected to be gram-positive bacterial #2 acute influenza A #3 type 2 diabetes #4 hypertension #5 rheumatoid arthritis #6 morbid obesity Patient had one blood culture positive for coagulase-negative staph- this is a contaminant - Secondary Discharge Diagnosis Chronic Problems Morbid obesity (Chronic) Fibromyalgia (Chronic) IBS (irritable bowel syndrome) (Chronic) Lumbar spinal stenosis (Chronic) Depression (Chronic) Rheumatoid arthritis (Chronic) Insomnia (Chronic) Diabetes mellitus (Chronic) GERD (gastroesophageal reflux disease) (Chronic) Restless leg syndrome (Chronic) Obstructive sleep apnea (Chronic) Peripheral neuropathy (Chronic) Hypothyroidism (Chronic) Chronic low back pain (Chronic) Psoriatic arthritis (Chronic) Type 2 diabetes mellitus (Chronic) Hypertension (Chronic) Hospital Course and Treatment Operations: None, - - Epidural injection Procedures: None Summary of Care Provided: The patient is a 72 year old F who was seen in the emergency room with a chief complaint of cough, fevers, and chills. Patient's cough was positive for green sputum production, workup in the emergency room included labs which were unremarkable set up for a positive influenza A lab result. Patient's chest x-ray was also unremarkable. Patient was hypoxic with room air pulse ox of 89%. Patient was admitted to [place] [address], she was treated with IV antibiotics, aerosol treatments, and IV corticosteroids. Patient's oxygen was weaned off. On 04/22/18, patient was seen and examined: On examination she appeared in good health and spirits. Vital signs as documented. Skin warm and dry and without overt rashes. Neck without JVD. Lungs clear. Heart exam notable for regular rhythm, normal sounds and absence of murmurs, rubs or gallops. Abdomen unremarkable and without evidence of organomegaly, masses, or abdominal aortic enlargement. Extremities nonedematous. Neuro: Cranial nerves II through XII are grossly intact, no focal motor deficits were noted, sensation to light touch and pinprick is intact. Psych: Patient is alert and oriented x3, she does not appear anxious or depressed. On 04/22/18, patient was seen and examined felt to be in stable condition for discharge home - Physical Exam Vital Signs Temp Pulse Resp BP Pulse Ox 98.2 F 81 20 H 136/75 H 97 04/22/18 08:00 04/22/18 10:48 04/22/18 10:48 04/22/18 08:00 04/22/18 10:48 Oxygen Flow Rate (L/min) 1 Oxygen Delivery Method Room Air Weight: 122.47 kg Body Mass Index (BMI) 51.0 Finger Stick Blood Glucose 164 Intake and Output for Last 24 Hours Intake Total 3140 / 3140 120 / 120 Balance 3140 / 3140 120 / 120 Microbiology Past 72 Hours 04/20/18 14:08 Urine Culture - Final Urine, Clean Catch Culture exhibits no growth. Discharge Activity: Return to Normal Activity Weight Bearing Status: Full weight bearing Home Medications: Medications to take at Discharge Atenolol [Tenormin (beta rema)] 50 mg PO DAILY 02/20/13 Hydroxychloroquine [Plaquenil] 200 mg PO BIDCM 02/20/13 Ropinirole HCl [Requip] 2 mg PO QHS PRN PRN 02/20/13 Gabapentin 400 mg PO 5X/DAY 05/05/13 Cyclobenzaprine [Flexeril] 10 mg PO TID PRN PRN 08/24/13 Multivitamins,Therapeutic [Multivitamin] 1 tablet PO DAILY 08/24/13 Duloxetine Hcl [Cymbalta] 30 mg PO DAILY 05/10/15 Levothyroxine [Synthroid] 50 mcg PO DAILY 01/23/16 Lansoprazole [Prevacid] 30 mg PO BID 08/21/16 Calcium Carb/Vitamin D [Os-Isabelle 500MG + D] 1 tablet PO BIDCM tablet 10/17/17 Metformin(XR) [Glucophage Xr] 500 mg PO DAILY 04/20/18 Acetaminophen [Tylenol Tablet] 650 mg PO Q6H PRN PRN tablet 04/22/18 Levofloxacin [Levaquin] 500 mg PO DAILY #2 tablet 04/22/18 Oseltamivir Phosphate [Tamiflu] 30 mg PO BID #6 capsule 04/22/18 Prednisone 20 mg PO BID #10 tablet 04/22/18 Following Prescrptions Were Given to Patient: Levofloxacin [Levaquin] 500 mg PO DAILY #2 tablet Oseltamivir Phosphate [Tamiflu] 30 mg PO BID #6 capsule Prednisone 20 mg PO BID #10 tablet Primary Care Physician: Fadumo Mandel DO [Primary Care Provider] - Please follow up with your Primary Care Physician in: IN 2 WEEKS Disposition: Home Minutes spent on discharge:: 30 Patient Condition:: Stable Medical Necessity - Tobacco Use Smoking Status: Never smoker Meaningful Use Info Meaningful Use Diagnoses (Choose all that apply): None applicable Code Visit OBSV E AND M: 41049 Observation care discharge 04/23/18 1005 <Electronically signed by Isauro Christian DO> Date Isauro Christian DO Cosigner Signature (if applicable): Date CC: Fadumo Mandel DO; Isauro Christian DO Signed DISCHARGE INSTRUCTION Observed: 04/22/2018 Status: F Source: [place] 11:31 AM [facility]POS[facility] Medical Records Department [address] [place] [address] Instructions for Home/Discharge Instructions 04/22/18 1033 MR#: [id number] Acct: [id number] Name: DON STRONG Rep #: [id number] : 1945 72 From: Isauro Christian DO PCP: Fadumo Mandel DO Status: ADM JOSEPHINE You will use the following diet at home:: Calorie/Carbohydrate Controlled (specify 1200, 1400, etc) - 1800 ISABELLE Your food should be the consistency of: Regular Your liquids should be the consistency of: Regular/Thin Discharge Activity: Return to Normal Activity Weight Bearing Status: Full weight bearing Allergies/Adverse Reactions: Allergies No Known Allergies Allergy (Verified 04/20/18 12:47) Medications to take at Discharge Atenolol [Tenormin (beta rema)] 50 mg PO DAILY 02/20/13 Hydroxychloroquine [Plaquenil] 200 mg PO BIDCM 02/20/13 Ropinirole HCl [Requip] 2 mg PO QHS PRN PRN 02/20/13 Gabapentin 400 mg PO 5X/DAY 05/05/13 Cyclobenzaprine [Flexeril] 10 mg PO TID PRN PRN 08/24/13 Multivitamins,Therapeutic [Multivitamin] 1 tablet PO DAILY 08/24/13 Duloxetine Hcl [Cymbalta] 30 mg PO DAILY 05/10/15 Levothyroxine [Synthroid] 50 mcg PO DAILY 01/23/16 Lansoprazole [Prevacid] 30 mg PO BID 08/21/16 Calcium Carb/Vitamin D [Os-Isabelle 500MG + D] 1 tablet PO BIDCM tablet 10/17/17 Metformin(XR) [Glucophage Xr] 500 mg PO DAILY 04/20/18 Acetaminophen [Tylenol Tablet] 650 mg PO Q6H PRN PRN tablet 04/22/18 Levofloxacin [Levaquin] 500 mg PO DAILY #2 tablet 04/22/18 Oseltamivir Phosphate [Tamiflu] 30 mg PO BID #6 capsule 04/22/18 Prednisone 20 mg PO BID #10 tablet 04/22/18 The following prescriptions were given: Levofloxacin [Levaquin] 500 mg PO DAILY #2 tablet Oseltamivir Phosphate [Tamiflu] 30 mg PO BID #6 capsule Prednisone 20 mg PO BID #10 tablet Primary Care Physician: Fadumo Mandel DO [Primary Care Provider] - Please follow up with your Primary Care Physician in: IN 2 WEEKS Test Results: Test results from this visit will be discussed in further detail at your follow-up appointment, if applicable. 04/22/18 1131 <Electronically signed by Isauro Christian DO> Date Isauro Christian DO CC: Fadumo Mandel DO Signed BEDSIDE GLUCOSE Collected: 04/22/2018 Status: F Source: [place] 6:25 AM [facility] REPOSITORY TYPE CODE TESTS RESULT OUT OF REFERENCE UNITS RANGE LAB L501.080 70-110 mg/dL High BEDSIDE GLU 159 Result Comment: MANAGEMENT OF PATIENT CARE PER NURSING PROTOCOL Performed By: #### L501.080 #### [facility] Point of Care [address] [place] [address] BEDSIDE GLUCOSE Collected: 04/21/2018 Status: F Source: [place] 8:51 PM [facility] REPOSITORY TYPE CODE TESTS RESULT OUT OF REFERENCE UNITS RANGE LAB L501.080 70-110 mg/dL High BEDSIDE GLU 209 Result Comment: MANAGEMENT OF PATIENT CARE PER NURSING PROTOCOL Performed By: #### L501.080 #### [facility] Point of Care [address] [place] [address] BEDSIDE GLUCOSE Collected: 04/21/2018 Status: F Source: [place] 5:18 PM [facility] REPOSITORY TYPE CODE TESTS RESULT OUT OF REFERENCE UNITS RANGE LAB L501.080 70-110 mg/dL High BEDSIDE GLU 193 Result Comment: MANAGEMENT OF PATIENT CARE PER NURSING PROTOCOL Performed By: #### L501.080 #### [facility] Point of Care [address] [place] [address] BEDSIDE GLUCOSE Collected: 04/21/2018 Status: F Source: [place] 11:51 AM [facility] REPOSITORY TYPE CODE TESTS RESULT OUT OF REFERENCE UNITS RANGE LAB L501.080 70-110 mg/dL High BEDSIDE GLU 125 Result Comment: MANAGEMENT OF PATIENT CARE PER NURSING PROTOCOL Performed By: #### L501.080 #### [facility] Point of Care [address] [place] [address] BEDSIDE GLUCOSE Collected: 04/21/2018 Status: F Source: [place] 6:25 AM [facility] REPOSITORY TYPE CODE TESTS RESULT OUT OF REFERENCE UNITS RANGE LAB L501.080 70-110 mg/dL High BEDSIDE GLU 115 Result Comment: MANAGEMENT OF PATIENT CARE PER NURSING PROTOCOL Performed By: #### L501.080 #### [facility] Point of Care [address] [place] [address] BASIC METABOLIC Collected: 04/21/2018 Status: F Source: [place] PROFILE (BMP) 5:28 AM [facility] REPOSITORY TYPE CODE TESTS RESULT OUT OF RANGE REFERENCE UNITS LAB L501.0100 74-106 mg/dL Normal GLU 106 Result Comment: Fasting Glucose result from 100 to 125 mg/dL suggests IMPAIRED HOMEOSTASIS per A.D.A. criteria. Please note revised GLUCOSE reference range effective 2017. LAB L501.1000 7-18 mg/dL Normal BUN 12 LAB L501.1100 0.55-1.02 mg/dL Normal CREAT,SERUM 0.71 Result Comment: The validity of the calculated GFR AND GFRAA in patients over 70 years has not been determined. Clinical correlation is essential. LAB L501.1110 >60 mL/min Normal EST GFR 86 Result Comment: Non- GFR Calc LAB L501.1115 >60 mL/min Normal EST GFR - AA 104 Result Comment: GFR Calc LAB L501.1255 ml/min Normal Estimated CRCL 38.37 LAB L501.1300 10-20 RATIO Normal BUN/CRE 16.9 LAB L501.2200 8.5-10 mg/dL Low .1 CA 8.4 LAB L501.5300 136-14 mmol/L Normal 5 NA 140 LAB L501.5600 3.5-5. mmol/L Normal 1 K 3.9 LAB L501.5900 98-107 mmol/L Normal CL 103 LAB L501.6100 21.0-3 mmol/L Normal 2.0 CO2 29.0 LAB L501.6200 5-15 Normal GAP 8 Performed By: #### L500.2500 #### [facility] [address] [place], [address] CBC W/DIFF, AUTOMATED Collected: 04/21/2018 Status: F Source: [place] 5:28 AM [facility] REPOSITORY TYPE CODE TESTS RESULT OUT OF RANGE REFERENCE UNITS LAB L100.1000 4.4-11.0 K/mm3 Normal WBC 8.0 LAB L100.1200 4.2-5.4 M/mm3 Normal RBC 4.25 LAB L100.1300 12.0-15.0 g/dl Low HGB 10.4 LAB L100.1400 37-47 % Low HCT 35.5 LAB L100.1500 81-99 fL Normal MCV 83.5 LAB L100.1600 27.0-32.0 pg Low MCH 24.5 LAB L100.1700 32-36 g/gl Low MCHC 29.3 LAB L100.1810 11.6-14.6 % High RDW CV 16.6 LAB L100.1820 35.1-43.9 fl High RDW SD 49.9 LAB L100.1900 150-450 K/mm3 Normal PLT 238 LAB L100.2000 6.2-12.0 fl Normal MPV 9.6 LAB L100.2100 47-70 % High NEUT% 79.6 LAB L100.2200 19-41 % Low LY% 8.6 LAB L100.2300 0-10 % Normal MONO% 8.9 LAB L100.2400 0-5 % Normal EO% 2.1 LAB L100.2500 0-1 % Normal BASO% 0.3 LAB L100.2550 0.0-0.9 % Normal IM GRAN % 0.500 Result Comment: IG% - Immature Granulocytes (promyelocytes, myelocytes and metamyelocytes) > 1% indicates that a LEFT SHIFT is Present. LAB L100.2620 2.0-7.7 X10 3/uL Normal Absolute Neut 6.4 LAB L100.2720 0.83-4.51 X10 3/ul Low Absolute Lymph 0.69 Performed By: #### L100.0100 #### [facility] [address] [facility]. [facility] [address] BEDSIDE GLUCOSE Collected: 04/20/2018 Status: F Source: [place] 9:47 PM [facility] REPOSITORY TYPE CODE TESTS RESULT OUT OF RANGE REFERENCE UNITS LAB L501.080 70-110 mg/dL Normal BEDSIDE GLU 102 Result Comment: MANAGEMENT OF PATIENT CARE PER NURSING PROTOCOL Performed By: #### L501.080 #### [facility] Point of Care [address] [facility]. [place], [place] [id number] BEDSIDE GLUCOSE Collected: 04/20/2018 Status: F Source: [place] 5:36 PM [facility] REPOSITORY TYPE CODE TESTS RESULT OUT OF RANGE REFERENCE UNITS LAB L501.080 70-110 mg/dL Normal BEDSIDE GLU 89 Result Comment: MANAGEMENT OF PATIENT CARE PER NURSING PROTOCOL Performed By: #### L501.080 #### [facility] Point of Care [address] [facility]. [place], [place] [id number] EMERGENCY DEPARTMENT Observed: 04/20/2018 Status: F Source: [place] SUMMARY 4:43 PM [facility] REPOSITORY [facility] Medical Records Department [address] [place] [address] Emergency Department Summary 04/20/18 1314 MR#: [id number] Acct: [id number] Name: DON STRONG Rep #: [id number] : 1945 72 From: Rod Fajardo MD PCP: Fadumo Mandel DO Status: ADM JOSEPHINE - ER Visit Summary Date of Service: 04/20/18 Chief Complaint: Cough, fever, chill History of Present Illness: The patient is a 72 F's with history of psoriatic arthritis, hypertension, hyperlipidemia, diabetes presents to the emergency department with cough, fever, chills. Patient symptoms began about 4 days ago. She states he initially started with a mild headache and some generalized myalgias. Since then, she had worsening cough with productive sputum, fevers, chills. She states that she is felt more short of breath. She denies any underlying history of lung disease. She does not smoke. She is on Plaquenil for her history of psoriatic arthritis. She did get a flu shot this year. She states that she was having some difficulty breathing today. On squad arrival, the patient was hypoxic with oxygen saturations of 84% on room air. She has no history of oxygen dependence. Physical Examination: Vital signs reviewed General: Well-nourished, well-developed Head: Normocephalic, atraumatic Eyes: Pupils equal and reactive, extraocular muscles intact Neck, supple, no lymphadenopathy Heart: Regular rate and rhythm Respiratory: No distress, wheezing with focal change in lung sounds in the left base Abdomen: Soft, nontender, nondistended, no peritoneal signs Back: Nontender Extremities: Nontender, no edema, no cords Skin: Normal color no rash Neuro: Alert and oriented, no focal or lateralizing deficits Test Results: [] Emergency Department Course and Treatment: The patient's symptoms do seem consistent with influenza. However, she does have focal change in lung sounds in the left base and productive sputum. She was also hypoxic. Sepsis workup was pursued. CBC, chemistry, lactate, and chest x-ray are all unremarkable. The patient was given fluids and Tylenol. Her influenza was positive. She was also given a DuoNeb treatment but still has persistent bronchospasm. The patient does have influenza and is oxygen dependent. At this time, I do feel that she is going require admission for continued respiratory care. The patient was started on Tamiflu. She was discussed with the hospitalist and will be admitted. Treatment Plan: [] Disposition: Admission Impression: 1. Influenza 2. Hypoxia This note was generated with [employer] software. It may contain incorrect words, spelling, and punctuation that were not noted in review of the chart prior to signing ED Disposition - Plan for ED Patient: Disposition: Acute Care Hospital [facility] Chief Complaint: Shortness of Breath What to do if you have Problems For any increased pain, shortness of breath, bleeding, nausea or vomiting, chest pain, or any unexpected problems, contact your Primary Care Provider. Call [facility] ([phone]) or report to the closest Emergency Room. Call 911 if necessary. 04/20/18 1643 <Electronically signed by Rod Fajardo MD> Date Rod Fajardo MD Cosigner Signature (If Indicated): Date CC: Fadumo Mandel DO HISTORY AND PHYSICAL Observed: 04/20/2018 Status: F Source: [place] EXAM 4:17 PM [facility] REPOSITORY [facility] Medical Records Department [address] [place] [id number] History and Physical 04/20/18 1600 MR#: [id number] Acct: [id number] Name: DON STRONG Rep #: [id number] : 1945 72 From: Brie Rivera MD PCP: Fadumo Mandel DO Status: ADM JOSEPHINE Y Location: [place] [id number] Problem List (1) Fibromyalgia Status: Chronic (2) IBS (irritable bowel syndrome) Status: Chronic Qualifiers: (3) Depression Status: Chronic (4) Rheumatoid arthritis Status: Chronic (5) Restless leg syndrome Status: Chronic (6) Obstructive sleep apnea Status: Chronic (7) Peripheral neuropathy Status: Chronic Qualifiers: (8) Hypothyroidism Status: Chronic Qualifiers: (9) Psoriatic arthritis Status: Chronic (10) Type 2 diabetes mellitus Status: Chronic Qualifiers: (11) Hypertension Status: Chronic Qualifiers: History of Present Illness Date of Admission: 04/20/18 Chief Complaint: Shortness of breath, cough and fever. The patient is a 72 year old F with past medical history as mentioned above presented to the emergency room because of shortness of breath, productive cough and fever. Her symptoms started 3 days ago with shortness of breath at rest, aggravated by minimal activity, associated with productive cough with moderate amount of yellow sputum as well as fever of up to 102.4 Fahrenheit and wheezing and without relieving factors. She reported associated sore throat and audible wheezing according to the patient. She denied chest pain, palpitation, dizziness or lightheadedness. Reportedly, her pulse ox was 84% on room air when the squad arrived at her house. In the emergency department, she was febrile, blood pressure was stable, pulse ox was 96% on 3 L. She never been on oxygen at home, non-smoker and never been diagnosed with COPD or asthma. Her routine blood work was remarkable for hemoglobin of 11.7 g/dL, otherwise normal. LFT was normal. Lactic acid was normal as well. Urinalysis revealed no evidence of acute cystitis. Chest x-ray showed no acute infiltrate, consolidation or effusion. Nasal swab for influenza came back positive for influenza A. Patient was given DuoNeb nebulizer but her pulse ox remained low without oxygen. She is being admitted for acute bronchitis probably due to influenza A and complicated by hypoxia. Past Medical History Past Medical History (Chronic Problems): Chronic Problems Morbid obesity (Chronic) Fibromyalgia (Chronic) IBS (irritable bowel syndrome) (Chronic) Lumbar spinal stenosis (Chronic) Depression (Chronic) Rheumatoid arthritis (Chronic) Insomnia (Chronic) Diabetes mellitus (Chronic) GERD (gastroesophageal reflux disease) (Chronic) Restless leg syndrome (Chronic) Obstructive sleep apnea (Chronic) Peripheral neuropathy (Chronic) Hypothyroidism (Chronic) Chronic low back pain (Chronic) Psoriatic arthritis (Chronic) Type 2 diabetes mellitus (Chronic) Hypertension (Chronic) Allergies No Known Allergies Allergy (Verified 04/20/18 12:47) Home Medications: Ambulatory Orders Medication Instructions Recorded Atenolol [Tenormin (beta rema)] 50 mg PO DAILY 02/20/13 Surgical History: Surgical History (Last Updated 10/29/17 @ 15:57 by Felicitas Bahena) H/O lumbosacral spine surgery Z98.890 09/13/17 Surgical History: cholecystectomy, hysterectomy, total knee arthroplasty - BL TKR., - - R Reverse Shoulder replacement. 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 Lives: Alone Smoking Status: Never smoker Alcohol: None Drugs: None - *Family History Maternal History Items: No pertinent history Paternal History Items: Diabetes, Heart Disease Review of Systems Constitutional: Reports: Anorexia, Chills, Fever, Malaise, Weakness Eyes: Denies: Blurred vision, Double vision, Drainage, Redness HEENT: Denies: Difficulty Hearing, Ear Pain, Eye Pain, Nasal Congestion, Sore Throat Cardiovascular: Denies: Chest Pain, Chest Pressure, Edema, Light Headedness, Palpitations, Syncope Respiratory: Reports: Cough, Shortness of Breath, Shortness of breath at rest, Sputum production, Wheezing Gastrointestinal: Denies: Abdominal Pain, Constipation, Diarrhea, Nausea, Vomiting Genitourinary: Denies: Dysuria, Frequency, Hematuria Musculoskeletal: Denies: Arm Pain, Back Pain, Foot Pain Skin: Denies: Dryness, Rash Neurological: Denies: Balance problems, Double vision, Change in Speech, Slurred speech, Confusion, Headaches, Numbness Psychiatric: Reports: Depression. Denies: Anxiety VTE Information - Inpt Only VTE Present on Admission: No VTE Mechan Device Prophylaxis: None VTE Pharm Prophylaxis ordered?: Yes - Physical Exam General: Alert, Oriented x3, Cooperative, - - Audible wheezing, minimally short of breath. HEENT: Atraumatic, PERRLA, EOMI, Normocephalic Oral: Moist Mucosa, No Gingival or Mucosal Lesions/ Ulcerations Neck: Supple, No JVD, Negative Carotid Bruits, Trachea Midline, Thyroid Normal Size and Texture Lungs: No rales, Diminished, Rhonchi, Short of Breath, Wheezes, - - Decreased breath sounds bilateral, bilateral expiratory wheezes. Cardiovascular: Regular rate, Regular Rhythm, Normal S1, Normal S2, PMI Normal Abdomen: Bowel Sounds Present, Soft, Non Tender, Non-Distended, No Hepato-splenomegaly, Obese Extremities: No clubbing, No cyanosis, No edema Skin: No rashes, No breakdown Lymphatic: No Cervical, Supraclavicular, or Inguinal Adenopathy Neurological: Cranial nerves II-XII grossly intact, Motor Exam 5/5 strength throughout Psych/Mental Status: Normal Affect, Appropriate, Alert and oriented to time, place, person, mood and affect Vital Signs Temp Pulse Resp BP Pulse Ox 98.5 F 83 17 103/56 L 96 04/20/18 14:55 04/20/18 14:55 04/20/18 14:55 04/20/18 14:55 04/20/18 14:55 Oxygen Flow Rate (L/min) 3 Oxygen Delivery Method Nasal Cannula Weight: 270 lb Body Mass Index (BMI) 51.0 Finger Stick Blood Glucose 164 Microbiology Past 72 Hours 04/20/18 13:08 Influenza Types A,B Direct FA (AL) - Final Mucosa - Nose Influenzae A Laboratory Tests Past 24 Hrs WBC 7.6 RBC 4.78 Hgb 11.7 L Hct 39.1 MCV 81.8 MCH 24.5 L MCHC 29.9 L RDW 16.4 H RDW Differential 49.9 H WBC RBC Clinical Impression(s) from Imaging Studies Chest X-Ray 04/20/18 12:59 IMPRESSION: Stable appearance of the chest with no new or acute finding. Electronically Signed: James Scanlon MD at 14:58 EST , Service support , Assessment/Plan This is a 72 years old female patient presented to the ED because of 3 days history of shortness of breath, fever, cough and wheezing and was found to have acute bronchitis triggered by influenza A and complicated by hypoxia and she is being admitted for treatment. #1 acute bronchitis/influenza A: This is based on symptoms of productive cough with yellow sputum, fever, wheezing and chest x-ray without evidence of acute infiltrate or consolidation. EKG revealed no acute ischemic changes. Lactic acid was normal. Blood and urine culture sent. She has been febrile. Plan: Admit to [facility] for observation, albuterol every 4 hours, Tamiflu twice daily, start empiric IV Levaquin because of purulent yellow sputum, sputum culture, incentive spirometer, Robitussin-AC as needed, Tylenol as needed, chest physiotherapy, repeat CBC and BMP tomorrow morning, follow blood and urine cultures, PT OT evaluation and treatment. #2 hypoxia: Secondary to acute bronchitis with bronchospasm. Patient never smoked, never been diagnosed with COPD or asthma. At home, pulse ox was 84% on room air according to the squad. She received DuoNeb in the ER, pulse ox remained low and she needed oxygen up to 3 L. Plan: Bronchodilators, antibiotics, incentive spirometer, oxygen by nasal cannula to keep O2 saturation more than 92%, wean off oxygen as tolerated. #3 type 2 diabetes mellitus: ADA diet, Accu-Cheks, insulin sliding scale, continue metformin. #4 hypertension: Blood pressure stable, continue atenolol. #5 hypothyroidism: Continue levothyroxine. #6 rheumatoid arthritis/psoriatic arthritis: Continue Flexeril, gabapentin and Plaquenil. #7 DVT prophylaxis: Subcu Lovenox. Other chronic medical problems: Stable, continue home medications. #1 fibromyalgia. #2 irritable bowel syndrome. #3 restless leg syndrome. #4 GERD. #5 chronic back pain/peripheral neuropathy. #6 obstructive sleep apnea. This note was generated with [email or web address] dictation software. It may contain incorrect words, spelling, and punctuation that were not noted in checking the note before signing. Code Visit OBSV E AND M: [id number] Initial observation care L3 04/20/18 1617 <Electronically signed by Brie Rivera MD> Date Brie Rivera MD Cosigner Signature: Date (if applicable) CC: Brie Rivera; Fadumo Mandel DO Signed URINALYSIS, COMPLETE Collected: 04/20/2018 Status: F Source: [place] 2:08 PM [facility] REPOSITORY Order Comment: Order Date: 04/20/18 How was Urine Obtained? DIRECT CARE STAFFER TO SPECIFY TYPE CODE TESTS RESULT OUT OF RANGE REFERENCE UNITS LAB L400.3000 Yellow COLOR Normal Yellow LAB L400.3050 Clear Normal CLARITY Clear LAB L400.3200 Normal mg/dl Normal GLUCOSE, UR Normal LAB L400.3300 Negative mg/dL Normal BILIRUBIN URINE Negative LAB L400.3400 Negative mg/dl High 50 KETONE UR LAB L400.3465 1.002-1.030 Normal SP.GR. DIPSTX 1.025 LAB L400.3550 5.0 - 8.0 pH UR Normal 5.0 LAB L400.3600 Negative mg/dl High PROT 30 DIPSTX LAB L400.3700 Normal mg/dl High 1 UROBILI LAB L400.3750 Negative Normal NITRITE UR Negative LAB L400.3780 Negative /ul High OCCULT BLOOD-UR 150 LAB L400.3800 Negative /ul High LEUK 25 ESTERASE LAB L400.4050 0-5 /hpf WBC Normal 0-5 SEEN LAB L400.4100 0-5 /hpf Normal RBC-UA 0-5 SEEN LAB L400.4150 5-10 /hpf SQUAM Normal EPI 0-5 SEEN LAB L400.4300 None Seen /hpf 0 Normal BACTERIA SEEN LAB L400.4350 <or=2+ /hpf 2+ Normal MUCUS, URINE Performed By: #### L400.0001 #### [facility] [address] [place], [place], [address] Observed: 04/20/2018 Status: F Source: [place] CULTURE, URINE 2:08 PM [facility] REPOSITORY Order Date: 04/20/18 Urine Culture Culture exhibits no growth. Performed By: #### M100.0650 #### [facility] [address] [place], [address] PROTHROMBIN TIME W/INR Collected: 04/20/2018 Status: F Source: [place] 2:00 PM [facility] REPOSITORY Order Comment: REDRAW. PREVIOUS SPECIMEN REJECTED DUE TO QNS. 04/20/18 Vanita Mendoza. TYPE CODE TESTS RESULT OUT OF RANGE REFERENCE UNITS LAB L300.4150 11.7-14.9 SECONDS Normal PROTIME 14.1 LAB L300.4200 Normal INR 1.1 Performed By: #### L300.3900, L300.4310 #### [facility] [address] [place], [address] PARTIAL THROMBOPLAST Collected: 04/20/2018 Status: F Source: [place] TIME 2:00 PM [facility] REPOSITORY Order Comment: REDRAW. PREVIOUS SPECIMEN REJECTED DUE TO QNS. 04/20/18 Vanita Mendoza. TYPE CODE TESTS RESULT OUT OF RANGE REFERENCE UNITS LAB L300.4310 24.1-36.2 Seconds Normal PTT 28.6 Performed By: #### L300.3900, L300.4310 #### [facility] [address] [place], [address] Observed: 04/20/2018 Status: F Source: [place] CULTURE, BLOOD (WB) 1:40 PM [facility] REPOSITORY BC No growth in 5 days. Performed By: #### M200.1000 #### [facility] [address] [place], [address] CBC W/DIFF, AUTOMATED Collected: 04/20/2018 Status: F Source: [place] 1:20 PM [facility] REPOSITORY TYPE CODE TESTS RESULT OUT OF RANGE REFERENCE UNITS LAB L100.1000 4.4-11.0 K/mm3 Normal WBC 7.6 LAB L100.1200 4.2-5.4 M/mm3 Normal RBC 4.78 LAB L100.1300 12.0-15.0 g/dl Low HGB 11.7 LAB L100.1400 37-47 % Normal HCT 39.1 LAB L100.1500 81-99 fL Normal MCV 81.8 LAB L100.1600 27.0-32.0 pg Low MCH 24.5 LAB L100.1700 32-36 g/gl Low MCHC 29.9 LAB L100.1810 11.6-14.6 % High RDW CV 16.4 LAB L100.1820 35.1-43.9 fl High RDW SD 49.9 LAB L100.1900 150-450 K/mm3 Normal PLT 248 LAB L100.2000 6.2-12.0 fl Normal MPV 9.2 LAB L100.2100 47-70 % High NEUT% 78.1 LAB L100.2200 19-41 % Low LY% 12.5 LAB L100.2300 0-10 % Normal MONO% 7.9 LAB L100.2400 0-5 % Normal EO% 0.7 LAB L100.2500 0-1 % Normal BASO% 0.5 LAB L100.2550 0.0-0.9 % Normal IM GRAN % 0.300 Result Comment: IG% - Immature Granulocytes (promyelocytes, myelocytes and metamyelocytes) > 1% indicates that a LEFT SHIFT is Present. LAB L100.2620 2.0-7.7 X10 3/uL Normal Absolute Neut 6.0 LAB L100.2720 0.83-4.51 X10 3/ul Normal Absolute Lymph 0.95 Performed By: #### L100.0100 #### [facility] [address] [place], [address] COMPREHENSIVE METABOLIC Collected: 04/20/2018 Status: F Source: [facility] 1:20 PM [facility] REPOSITORY TYPE CODE TESTS RESULT OUT OF RANGE REFERENCE UNITS LAB L501.0100 74-106 mg/dL Normal GLU 105 Result Comment: Fasting Glucose result from 100 to 125 mg/dL suggests IMPAIRED HOMEOSTASIS per A.D.A. criteria. Please note revised GLUCOSE reference range effective 2017. LAB L501.1000 7-18 mg/dL Normal BUN 12 LAB L501.1100 0.55-1.02 mg/dL Normal CREAT,SERUM 0.96 Result Comment: The validity of the calculated GFR AND GFRAA in patients over 70 years has not been determined. Clinical correlation is essential. LAB L501.1110 >60 mL/min Normal EST GFR 61 Result Comment: Non- GFR Calc LAB L501.1115 >60 mL/min Normal EST GFR - AA 73 Result Comment: GFR Calc LAB L501.1255 ml/min Normal Estimated CRCL 39.97 LAB L501.1300 10-20 RATIO Normal BUN/CRE 12.5 LAB L501.1500 6.4-8. g/dL Normal 2 T PROT 7.4 LAB L501.1800 3.2-5. g/dL Low 0 ALB 2.9 LAB L501.1950 2.2-4. g/dL High 2 GLOB 4.5 LAB L501.2000 0.9-2. RATIO Low 4 A/G 0.6 LAB L501.2200 8.5-10 mg/dL Low .1 CA 8.2 LAB L501.4100 15-37 U/L Normal AST 33 Result Comment: Moderate Hemolysis, Result may be falsely increased. LAB L501.4305 45-117 U/L Normal ALK P 109 LAB L501.4405 13-56 U/L Normal ALT 17 LAB L501.4600 0.20-1.00 mg/dL Normal T BILI 0.50 LAB L501.5300 136-145 mmol/L Low NA 135 LAB L501.5600 3.5-5.1 mmol/L Normal K 4.2 Result Comment: Moderate Hemolysis, Result may be falsely increased. LAB L501.5900 98-107 mmol/L Normal CL 101 LAB L501.6100 21.0-32.0 mmol/L Normal CO2 27.0 LAB L501.6200 5-15 Normal 7 GAP Performed By: #### L500.4050 #### [facility] [address] [facility] [place], [address] LACTIC ACID Collected: 04/20/2018 Status: F Source: [place] 1:20 PM [facility] REPOSITORY Order Comment: Yes/No query for Sepsis Lactate Rule Y TYPE CODE TESTS RESULT OUT OF RANGE REFERENCE UNITS LAB L503.6005 0.4-2.0 mmol/L Normal LACTIC ACID 0.9 Performed By: #### L503.6005 #### [facility] [address] [place], [address] Observed: 04/20/2018 Status: F Source: [place] CULTURE, BLOOD (WB) 1:20 PM [facility] REPOSITORY BC POSITIVE BLOOD CULTURE - AEROBIC AND ANAEROBIC BOTTLE DRAWN 04/20/18 AT 1324 GRAM STAIN = GRAM POSITIVE COCCI CLUSTERS RESULTS CALLED TO Nery CANCINO 04/21/18 0839 Chantal Blue. REPORT READ BACK BY JUAN LUIS. Possible skin contamination, further Identification and sensitivity will be performed only by physician's request. ORGANISM 1: Coag Negative Staph Amount Growth Growth Performed By: #### M200.1000, M100.636 #### [facility] [address] [facility] [place], [address] Observed: 04/20/2018 Status: F Source: [facility] GPC ID 1:20 PM [facility] REPOSITORY GPC ID Staphylococcus sp. Coagulase - Negative Staphylococcus sp. Enterococcus sp. Not Detected Streptococcus spp. Not Detected Listeria spp Not Detected Arnol/vanB Not Detected mecA Not Detected NAAT METHOD Testing was performed using nucleic acid amplification ORGANISM 1: Coag Negative Staph Performed By: #### M200.1000, M100.636 #### [facility] [address] [place], [address] Observed: 04/20/2018 Status: F Source: [place] INFLUENZA A+B (RAPID 1:08 PM [facility] MATHEUS) REPOSITORY Order Date: 04/20/18 FLU A/B Rapid Negative test results should be confirmed with FLU PANEL MOLECULAR if indicated. RESULTS CALLED TO PEPPER/ED 04/20/18 1346 Eunice Wong. Copy of report sent to Infection Control Printer MS#[id number] 04/20/18 1346 ROSA. Influenza Ag, Direct POSITIVE for the presence of INFLUENZA A Antigen only ORGANISM 1: INFLUENZAE A Performed By: #### M101.0101 #### [facility] [address] [place], [address] CHEST 1 VIEW Observed: 04/20/2018 Status: F Source: [place] (PORTABLE) 1:00 PM [facility] REPOSITORY [facility] Imaging Services [address] [place] [address] Chest 1 View (Portable) MR#: [id number] Acct: [id number] Name: TRESADON Barry Rep #: [id number] : 1945 F 72 From: James Scanlon MD PCP: Fadumo Mandel DO Status: REG ER Study: Chest 1 View (Portable) Date of Exam: 04/20/18 Exam# [id number] Ordering Dr: Rod Fajardo MD STUDY: X-RAY CHEST REASON FOR EXAM: Female, 72 years old. Fever. TECHNIQUE: Single frontal view of the chest. COMPARISON: December 09, 2017 FINDINGS: There is low volume inspiration with bibasilar atelectasis. There is no demonstrated pleural abnormality. There is stable cardiomegaly. Normal mediastinum and graciela. Normal visualized pulmonary arteries. Normal visualized aortic arch and descending thoracic aorta. Normal visualized thoracic spine. There is a right total total shoulder arthroplasty and postsurgical changes in the thoracolumbar spine, unaltered. 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 There is no demonstrated abnormality of the visualized soft tissue structures of the upper abdomen. RAD/Chest 1 View (Portable) IMPRESSION: Stable appearance of the chest with no new or acute finding. Electronically Signed: James Scanlon MD at 14:58 EST , Service support , CC: Fadumo Mandel DO; Rod Fajardo MD Group Therapist: Signed ORTHOPEDIC VISIT Observed: 04/12/2018 Status: F Source: [place] REPORT 1:19 PM [facility] REPOSITORY [facility] [address] [place] [address] OFFICE VISIT Date of Service: 04/01/18 MR#: [id number] Acct: [id number] Name: TRESADON Barry Rep #: [id number] : 1945 Provider: Aby Rosas MD Age/Sex: 72/F Location: [facility] [place] [place] Status: Signed Intake Intake Visit Reasons: LOW BACK Is patient in pain?: No Allergies No Known Allergies Allergy (Verified 04/01/18 15:36) Medications Atenolol [Tenormin (beta rema)] 50 mg PO DAILY 02/20/13 [History Confirmed 07/30/17] Hydroxychloroquine [Plaquenil] 200 mg PO BIDCM 02/20/13 [History Confirmed 07/30/17] Ropinirole HCl [Requip] 2 mg PO QHS PRN PRN 02/20/13 [History Confirmed 07/30/17] Gabapentin 400 mg PO 5X/DAY 05/05/13 [History Confirmed 07/30/17] Cyclobenzaprine [Flexeril] 10 mg PO TID PRN PRN 08/24/13 [History Confirmed 07/30/17] Infliximab [Remicade] 5 mg IV QMONTH 08/24/13 [History Confirmed 07/30/17] Multivitamins,Therapeutic [Multivitamin] 1 tab PO DAILY 08/24/13 [History Confirmed 07/30/17] Duloxetine Hcl [Cymbalta] 60 mg PO DAILY 05/10/15 [History Confirmed 09/19/17] Calcium Carbonate [Calcium] 600 mg PO BID 08/25/15 [History Confirmed 07/30/17] Levothyroxine [Synthroid] 50 mcg PO DAILY 01/23/16 [History Confirmed 09/19/17] Lansoprazole [Prevacid] 16 mg PO BID 08/21/16 [History Confirmed 09/19/17] Bisacodyl [Dulcolax] 10 mg PO DAILY PRN tab 10/17/17 [Rx] Calcium Carb/Vitamin D [Os-Isabelle 500MG + D] 1 tab PO BIDCM tab 10/17/17 [Rx] Calcium Carbonate [Tums] 500 mg PO Q4H PRN PRN tab 10/17/17 [Rx] Iron Polysaccharide Complex [Ferrex 150] 150 mg PO DAILYCM cap 10/17/17 [Rx] Melatonin 3 mg PO QHS PRN tab 10/17/17 [Rx] Menthol/Lanolin/Calamine/Znox [Calmoseptine Ointment] 1 applic TOPICAL BID@0600,2200 tube 10/17/17 [Rx] Nystatin Powder [Mycostatin Powder] 1 applic TOPICAL 0600,2200 bottle 10/17/17 [Rx] Polyethylene Glycol 3350 [Miralax] 17 gm PO DAILY packet 10/17/17 [Rx] Senna/Docusate Sodium [Senokot-S] 2 tab PO BID tab 10/17/17 [Rx] proMETHazine tablet [Phenergan tablet] 25 mg PO Q6H PRN PRN tab 10/17/17 [Rx] PFSH Surgical History H/O lumbosacral spine surgery (Acute) Social History Smoking Status: Never smoker HPI LOW BACK: Details: DON TSRONG returns today 7 months status post L1-S1 laminectomy with [id number]-[id number] instrumented fusion on 09/13/17. Patient is doing well and not having any pain. She states that she is happy with her surgery outcome. She ambulates with a walker outside. She does not use a walker in the home. Patient denies any radicular pain. She has no new numbness but does have neuropathy. Patient denies any back bracing. Patient is currently in PT which is helpful and she is seeing improvement. She admits to having fallen on when she tripped and fell forward. She denies any pain. She denies fevers or chills. ROS Const Reports system reviewed and no additional complaints, except as docu Eyes Reports system reviewed and no additional complaints, except as docu ENT Reports system reviewed and no additional complaints, except as docu Card Reports system reviewed and no additional complaints, except as docu Resp Reports system reviewed and no additional complaints, except as docu GI Reports system reviewed and no additional complaints, except as docu Reports system reviewed and no additional complaints, except as docu Skin/Breast Reports system reviewed and no additional complaints, except as docu Neuro Yes system reviewed and no additional complaints, except as docu Psych Reports system reviewed and no additional complaints, except as docu Endo Reports system reviewed and no additional complaints, except as docu Ortho Exam Spine Neuro: Yes Straight Leg Raise (negative bilaterally) General: alert, oriented x3 Skin: Yes healed Capillary Refill <2sec: Yes Gait: normal gait, other (improved gait pattern without walker) Motor: muscle tone normal throughout Sensory Exam: other (decreased sensation in a stocking glove distribution from preop) DTR's: Rt Patellar: 1+, Lt Patellar: 1+, Rt Ankle: 1+, Lt Ankle: 1+ Coordination: Romberg test normal SPINE TESTING CERVICAL THORACIC LUMBAR SLR: Negative Musculoskeletal General: Yes normal posture Thoracic/Lumbar Spine: surgical scar(s) present, other (no significant tenderness. no hardware prominence) Strength 0=absent - 5=normal R Hip Flexor (L1-3): 5, L Hip Flexor (L1-3): 5, R Quadriceps (L2-4): 5, L Quadriceps (L2-4): 5, R Anterior Tibialis (L4-5): 5 (5-), L Anterior Tibialis (L4- 5): 4, R Hamstrings (L5-S1): 5, L Hamstrings (L5-S1): 5, GS (S1): 5, L GS (S1): 5 Assessment AND Plan Problems 1. S/P spinal fusion Z98.1 Plan Imaging: XR scoliosis 04/01/2018 reveals stable instrumentation with stable T10 compression deformity without further migration of the proximal screws I/R/P: 1. status post L1-S1 laminectomy with [id number] instrumented fusion, 09/13/2017 2. bilateral chronic ankle weakness 3. fibromyalgia 5. psoriatic arthritis on DMARDs, currently has not resumed 6. DM 7. BMI 51 Ms. Strong remains stable. She has no increased pain or deformity. She has a neutral sagittal balance. She did fall recently. She has been able to wean out of the brace. She will continue physical therapy. Follow up in 3 months with XR scoliosis ap and lateral or sooner if issues arise. Plan of care discussed. All questions answered. She is in understanding. Orders Orders: Coding Level of Care Code Off vis,est,level 4 Diagnoses S/P spinal fusion Z98.1 04/12/18 1319 <Electronically signed by Aby Rosas MD> Date Aby Rosas MD Cosigner Signature: Date (if applicable) CC: Khalida Conroy MD SCOLIOSIS 2 OR 3 VIEWS Observed: 04/01/2018 Status: F Source: [place] 2:22 PM [facility] Imaging Services [facility] [address] [place] [address] Scoliosis 2 or 3 views MR#: [id number] Acct: [id number] Name: DON STRONG Rep #: [id number] : 1945 F 72 From: Lázaro John MD PCP: Fadumo Mandel DO Status: REG CLI Study: Scoliosis 2 or 3 views Date of Exam: 04/01/18 Exam# [id number] Ordering Dr: Aby Rosas MD STUDY: X-RAY - Thoracolumbar spine REASON FOR EXAM: Female, 72 years old. Status post spinal fusion. Out of brace. TECHNIQUE: Multiple views of the thoracolumbar. COMPARISON: 02/11/2018 FINDINGS: There are stable postsurgical changes from prior lower thoracic and lumbar fusion with posterior rods, pedicle screw fixation with fixation screws through the sacroiliac joints. The hardware is intact. There is stable mild scoliosis. There is stable kyphosis at T9-T10. There is stable mild multilevel disc degenerative disease. There is no acute fracture or dislocation. RAD/Scoliosis 2 or 3 views IMPRESSION: Stable postsurgical changes of the thoracolumbar spine with intact hardware in satisfactory alignment. Stable degenerative changes. Stable kyphosis at T9-T10. No acute fracture or dislocation. Electronically Signed: Lázaro John, at 15:16 EST Tel , Service support , CC: Aby Rosas MD; Fadumo Mandel DO Group Therapist: Signed ORTHOPEDIC VISIT Observed: 02/11/2018 Status: F Source: [place] 11:53 AM [facility] REPOSITORY [facility] Orthopaedics AND Sports Medicine [address] [place] [address] OFFICE VISIT Date of Service: 02/11/18 MR#: [id number] Acct: [id number] Name: DON STRONG Rep #: [id number] : 1945 Provider: Aby Rosas MD Age/Sex: 72/F Location: [facility] [place] Status: Signed Intake Intake Visit Reasons: LOW BACK Chief Complaint: Spinal Stenosis - pelvis fusion surgery Allergies No Known Allergies Allergy (Verified 12/17/17 09:26) Medications Atenolol [Tenormin (beta rema)] 50 mg PO DAILY 02/20/13 [History Confirmed 07/30/17] Hydroxychloroquine [Plaquenil] 200 mg PO BIDCM 02/20/13 [History Confirmed 07/30/17] Ropinirole HCl [Requip] 2 mg PO QHS PRN PRN 02/20/13 [History Confirmed 07/30/17] Gabapentin 400 mg PO 5X/DAY 05/05/13 [History Confirmed 07/30/17] Cyclobenzaprine [Flexeril] 10 mg PO TID PRN PRN 08/24/13 [History Confirmed 07/30/17] Infliximab [Remicade] 5 mg IV QMONTH 08/24/13 [History Confirmed 07/30/17] Multivitamins,Therapeutic [Multivitamin] 1 tab PO DAILY 08/24/13 [History Confirmed 07/30/17] Duloxetine Hcl [Cymbalta] 60 mg PO DAILY 05/10/15 [History Confirmed 09/19/17] Calcium Carbonate [Calcium] 600 mg PO BID 08/25/15 [History Confirmed 07/30/17] Levothyroxine [Synthroid] 50 mcg PO DAILY 01/23/16 [History Confirmed 09/19/17] Lansoprazole [Prevacid] 16 mg PO BID 08/21/16 [History Confirmed 09/19/17] Bisacodyl [Dulcolax] 10 mg PO DAILY PRN tab 10/17/17 [Rx] Calcium Carb/Vitamin D [Os-Isabelle 500MG + D] 1 tab PO BIDCM tab 10/17/17 [Rx] Calcium Carbonate [Tums] 500 mg PO Q4H PRN PRN tab 10/17/17 [Rx] Iron Polysaccharide Complex [Ferrex 150] 150 mg PO DAILYCM cap 10/17/17 [Rx] Melatonin 3 mg PO QHS PRN tab 10/17/17 [Rx] Menthol/Lanolin/Calamine/Znox [Calmoseptine Ointment] 1 applic TOPICAL BID@0600,2200 tube 10/17/17 [Rx] Nystatin Powder [Mycostatin Powder] 1 applic TOPICAL 0600,2200 bottle 10/17/17 [Rx] Polyethylene Glycol 3350 [Miralax] 17 gm PO DAILY packet 10/17/17 [Rx] Senna/Docusate Sodium [Senokot-S] 2 tab PO BID tab 10/17/17 [Rx] proMETHazine tablet [Phenergan tablet] 25 mg PO Q6H PRN PRN tab 10/17/17 [Rx] PFSH Surgical History H/O lumbosacral spine surgery (Acute) Social History Smoking Status: Never smoker HPI LOW BACK: Details: DON STRONG returns today for f/u 5 months status post L1-S1 laminectomy with [id number] instrumented fusion on 09/13/2017. She is ambulating with her walker and in her brace, but at home she does not use either. She states she that she has no pain, she is able to walk to her road from the house without pain. She does need to sit for a moment, then make the return trip. She states she is significantly improved from preop. She is able to complete all ADLs. Denies numbness, tingling or other associated symptoms. She has not resumed her DMARD for her psoriatic arthiritis. She has not had any flairs at this time. She has completed home physical therapy. Of note, her cellulitis is resolved and her bilateral lower extremity has improved with pumps. She states her neuropathic pain has improved as well. She takes no pain medication. Ortho Exam Spine Neuro: Yes Light Touch Sensation (improved from preop) and Straight Leg Raise (negative bilaterally) General: alert, oriented x3 Skin: Yes healed Capillary Refill <2sec: Yes Gait: normal gait (improved gait without walker), other (able to stand on heels and toes) Sensory Exam: no sensory deficits noted (improved from preop) DTR's: Rt Patellar: 1+, Lt Patellar: 1+, Rt Ankle: 1+, Lt Ankle: 1+ Coordination: other, Romberg test normal Details: no significant tenderness throughout the thoracolumbar spine. no palpable hardware or prominence. neutral sagittal balance. SPINE TESTING CERVICAL THORACIC LUMBAR SLR: Negative Musculoskeletal Thoracic/Lumbar Spine: surgical scar(s) present, straight leg raise negative bilaterally Strength 0=absent - 5=normal R Hip Flexor (L1-3): 5, L Hip Flexor (L1-3): 5, R Quadriceps (L2-4): 5, L Quadriceps (L2-4): 5, R Anterior Tibialis (L4-5): 5 (5-/5), L Anterior Tibialis (L4-5): 4, R Hamstrings (L5-S1): 5, L Hamstrings (L5-S1): 5, GS (S1): 5, L GS (S1): 5 Assessment AND Plan Problems 1. S/P spinal fusion Z98.1 Plan Imaging XR scoliosis - stable hardware with stable T10 compression deformity without further migration of proximal screws I/R/P: 1. s/p L1-S1 laminectomy with [id number] instrumented fusion, 09/13/2017 2. bilateral chronic ankle weakness, improving 3. cellulitis, resolved 4. fibromyalgia 5. psoriatic arthritis on DMARDS, currently has not resumed DMARDs 6. DM 7. BMI 51 Ms. Strong is doing very well. Her radiographs are stable and she is asymptomatic. Will wean out of brace. Will initiate core strengthening. Updated physical therapy prescription provided. Follow up in 2 months with standing scoliosis radiographs OUT of brace or sooner if issues arise. Plan of care discussed. All questions answered. She and her son are in understanding. Orders Orders: Coding Level of Care Code Off vis,est,level 4 Diagnoses S/P spinal fusion Z98.1 02/11/18 1153 <Electronically signed by Aby Rosas MD> Date Aby Rosas MD Cosigner Signature: Date (if applicable) CC: Khalida Conroy MD SCOLIOSIS 2 OR 3 VIEWS Observed: 02/11/2018 Status: F Source: [place] 9:16 AM [facility] Imaging Services [address] [place] [address] Scoliosis 2 or 3 views MR#: [id number] Acct: [id number] Name: DON STRONG Rep #: [id number] : 1945 F 72 From: Kole Perez MD PCP: Fadumo Mandel DO Status: REG CLI Study: Scoliosis 2 or 3 views Date of Exam: 02/11/18 Exam# [id number] Ordering Dr: Aby Rosas MD STUDY: XR SPINE ENTIRE THORACIC T LUMBAR (W SKULL, CERVICAL AND SACRAL SPINE IF PERFORMED) REASON FOR EXAM: Female, 72 years old. Back pain, postoperative follow-up. TECHNIQUE: Radiological exam, spine, entire thoracic and lumbar, including skull, cervical and sacral spine if performed (eg, scoliosis evaluation); 2 or 3 views. COMPARISON: Scoliosis series 12/17/2017. FINDINGS: There is mild peribronchial cuffing, lungs otherwise clear. Whether any symptoms of bronchiolitis/reactive airway/URI? Normal cardiomediastinal silhouette. Right shoulder arthroplasty. Prominent degenerative features of the left glenohumeral joint. Multilevel low thoracic and lumbar posterior navneet and pedicle screw fixation with fixation screws through the sacroiliac joints. T10-S2 fixation. Surgical construct is intact. There is mild scoliosis. There is prominent kyphosis at T9-T10, stable. Lordosis of the lumbar spine is normal. There are mild multilevel disc degenerative features. Interbody spacer at L4-L5. Moderately prominent stool burden of the proximal large bowel, decompressed distally. Scattered gas of the small and large bowel. Unremarkable pattern. No free air. Grossly normal size and position of the solid organs of the abdomen. Mild degenerative features of the hip joints bilaterally. RAD/Scoliosis 2 or 3 views IMPRESSION: Surgical construct intact. Kyphoscoliosis is stable. Electronically Signed: Kole Perez, at 10:29 EDT Tel , Service support , CC: Aby Rosas MD; Fadumo Mandel DO Group Therapist: Signed ORTHOPEDIC VISIT Observed: 12/22/2017 Status: F Source: [place] 1:53 PM [facility] REPOSITORY [facility] Orthopaedics AND Sports Medicine [address] [facility] [address] [place] [address] OFFICE VISIT Date of Service: 12/17/17 MR#: [id number] Acct: [id number] Name: DON STRONG Rep #: [id number] : 1945 Provider: Aby Rosas MD Age/Sex: 72/F Location: [facility] [place] Status: Signed Intake Intake Visit Reasons: LOW BACK Is patient in pain?: Yes Allergies No Known Allergies Allergy (Verified 12/17/17 09:26) Medications Atenolol [Tenormin (beta rema)] 50 mg PO DAILY 02/20/13 [History Confirmed 07/30/17] Hydroxychloroquine [Plaquenil] 200 mg PO BIDCM 02/20/13 [History Confirmed 07/30/17] Ropinirole HCl [Requip] 2 mg PO QHS PRN PRN 02/20/13 [History Confirmed 07/30/17] Gabapentin 400 mg PO 5X/DAY 05/05/13 [History Confirmed 07/30/17] Cyclobenzaprine [Flexeril] 10 mg PO TID PRN PRN 08/24/13 [History Confirmed 07/30/17] Infliximab [Remicade] 5 mg IV QMONTH 08/24/13 [History Confirmed 07/30/17] Multivitamins,Therapeutic [Multivitamin] 1 tab PO DAILY 08/24/13 [History Confirmed 07/30/17] Duloxetine Hcl [Cymbalta] 60 mg PO DAILY 05/10/15 [History Confirmed 09/19/17] Calcium Carbonate [Calcium] 600 mg PO BID 08/25/15 [History Confirmed 07/30/17] Levothyroxine [Synthroid] 50 mcg PO DAILY 01/23/16 [History Confirmed 09/19/17] Lansoprazole [Prevacid] 16 mg PO BID 08/21/16 [History Confirmed 09/19/17] Oxycodone Myristate [Xtampza ER] 18 mg PO BID 07/07/17 [History Confirmed 09/19/17] Acetaminophen [Tylenol] 1,000 mg PO Q8H PRN PRN tab 10/17/17 [Rx] Bisacodyl [Dulcolax] 10 mg PO DAILY PRN tab 10/17/17 [Rx] Calcium Carb/Vitamin D [Os-Isabelle 500MG + D] 1 tab PO BIDCM tab 10/17/17 [Rx] Calcium Carbonate [Tums] 500 mg PO Q4H PRN PRN tab 10/17/17 [Rx] Iron Polysaccharide Complex [Ferrex 150] 150 mg PO DAILYCM cap 10/17/17 [Rx] Melatonin 3 mg PO QHS PRN tab 10/17/17 [Rx] Menthol/Lanolin/Calamine/Znox [Calmoseptine Ointment] 1 applic TOPICAL BID@0600,2200 tube 10/17/17 [Rx] Metformin(XR) [Glucophage Xr] 500 mg PO DAILYCM tab 10/17/17 [Rx] Nystatin Powder [Mycostatin Powder] 1 applic TOPICAL 0600,2200 bottle 10/17/17 [Rx] Ondansetron [Zofran Odt] 4 mg PO Q6H PRN PRN tab 10/17/17 [Rx] Oxycodone CR [Oxycontin] 10 mg PO BID #14 tab 10/17/17 [Rx] Oxycodone [Oxyir] 5 - 10 mg PO Q6H PRN PRN #28 tab 10/17/17 [Rx] Polyethylene Glycol 3350 [Miralax] 17 gm PO DAILY packet 10/17/17 [Rx] Senna/Docusate Sodium [Senokot-S] 2 tab PO BID tab 10/17/17 [Rx] proMETHazine tablet [Phenergan tablet] 25 mg PO Q6H PRN PRN tab 10/17/17 [Rx] [facility] Surgical History H/O lumbosacral spine surgery (Acute) Social History Smoking Status: Never smoker HPI LOW BACK: Details: DON STRONG returns today in follow up 3 months s/p L1-S1 laminectomy with [id number] instrumented fusion dos 09/13/17 at [facility]. She notes that she is doing okay. She notes that she is being treated for cellulitis in his bilateral legs with augmentin. She started this last saturday. She had an ultrasound that was negative for DVT. She notes that she has tingling into her legs which she believes is from the cellulitis. She also has a cough and has felth fatigue from the aboe changes. She has baseline neuropathy in her bilateral legs. She notes her back is feeling good. Patient has been wearing her back brace. She removes her brace when she is sitting in her recliner chair. Patient is sleeping in her recliner. Patient is doing home physical therapy for leg strengthening. She is ambulating with a walker. She denies any fevers or chills. She denies any drainage from her incision. Patient is taking tylenol as needed. She denies bowel or bladder issues. She is overall pleased. ROS Const Reports system reviewed and no additional complaints, except as docu Eyes Reports system reviewed and no additional complaints, except as docu ENT Reports system reviewed and no additional complaints, except as docu Card Reports system reviewed and no additional complaints, except as docu Resp Reports system reviewed and no additional complaints, except as docu GI Reports system reviewed and no additional complaints, except as docu Reports system reviewed and no additional complaints, except as docu Musc Reports back pain, Reports limited joint movement Skin/Breast Reports system reviewed and no additional complaints, except as docu Neuro Yes system reviewed and no additional complaints, except as docu Psych Reports system reviewed and no additional complaints, except as docu Endo Reports system reviewed and no additional complaints, except as docu Ortho Exam Spine Neuro: Yes Straight Leg Raise (negative bilaterally) General: alert, oriented x3 Skin: Yes healed Capillary Refill <2sec: Yes Gait: normal gait (with walker) Motor: strength 5/5 throughout Sensory Exam: other (decreased in stocking glove distribution in bilateral lower extremities) DTR's: Rt Patellar: 2+, Lt Patellar: 2+, Rt Ankle: 2+, Lt Ankle: 2+ Details: 2+ pitting edema in bilateral lower extremities SPINE TESTING CERVICAL THORACIC LUMBAR SLR: Negative Musculoskeletal General: Yes normal gait Thoracic/Lumbar Spine: surgical scar(s) present, straight leg raise negative bilaterally, other (no hardware prominence or tenderness throughout the TL spine) Strength 0=absent - 5=normal R Hip Flexor (L1-3): 4, L Hip Flexor (L1-3): 4, R Quadriceps (L2-4): 5, L Quadriceps (L2-4): 5, R Anterior Tibialis (L4-5): 5, L Anterior Tibialis (L4-5): 5, R Hamstrings (L5-S1): 5, L Hamstrings (L5-S1): 5, GS (S1): 5, R Peroneals (S1): 5, L Peroneals (S1): 5 Assessment AND Plan Plan Imaging: XR scoliosis - stable instrumentation with stable T10 compression deformity without migration I/R/P: 1. status post L1-S1 laminectomy with [id number] instrumented fusion, 09/13/2017 2. bilateral chronic ankle weakness 3. bilateral pitting edema with cellulitis on augmentin 4. cough 5. fibromyalgia 6. psoriatic arthritis on DMARD 7. DM 8. BMI 51 Ms. Strong is clinically doing well with regards to her spine. She has stable proximal junctional changes. Discussed at length with the patient and son option of advanced imaging. The patient declines and states she is doing well. She will continue to work with her PCP for her swelling/cellulitis and cough. Continue brace when up and out of bed. Follow up in 6 weeks with standing scoliosis radiographs or sooner if issues arise. Plan of care discussed. All questions answered. She and her son are in understanding. Orders Orders: Coding Level of Care Code Off vis,est,level 4 12/22/17 5599 <Electronically signed by Aby Rosas MD> Date Aby Rosas MD Cosigner Signature: Date (if applicable) CC: Khalida Conroy MD SCOLIOSIS 2 OR 3 VIEWS Observed: 12/17/2017 Status: F Source: [place] 9:27 AM [facility] Imaging Services [address] [place] [address] Scoliosis 2 or 3 views MR#: [id number] Acct: [id number] Name: DON STRONG Rep #: [id number] : 1945 F 72 From: Jesse Marie MD PCP: Fadumo Mandel DO Status: REG CLI Study: Scoliosis 2 or 3 views Date of Exam: 12/17/17 Exam# [id number] Ordering Dr: Aby Rosas MD STUDY: XR SPINE ENTIRE THORACIC T LUMBAR (W SKULL, CERVICAL AND SACRAL SPINE IF PERFORMED) REASON FOR EXAM: Female, 72 years old. Recent back surgery. TECHNIQUE: Radiological exam, spine, entire thoracic and lumbar, including skull, cervical and sacral spine if performed (eg, scoliosis evaluation); 2 or 3 views on 6 films. COMPARISON: Frontal and lateral views of the thoracolumbar spine October 29, 2017 FINDINGS: The patient has undergone posterior spinal fusion from T10 to the sacroiliac joints. Bilateral transpedicular screws from T10 to L5 as well as screws passing in an oblique fashion across the sacroiliac and sacroiliac joints into the lower joselito are connected on either side the longitudinal metal rods. Patient also has undergone L2-L5 laminectomies and L4-5 discectomy. Markers of a disc prosthesis are noted at that level. There is a stable 8 degree dextroscoliosis of the thoracic spine with the apex of the convexity at the T9 level. There is a stable 4 degree levoscoliosis of the lumbar spine with the apex of the convexity at the L4-5 level. There is stable moderate depression of the superior T10 vertebral endplate. There is an increase in the normal thoracic kyphosis at T9- 10. There is multilevel endplate spondylosis of the thoracic vertebrae. Normal disc space heights of the thoracic spine. Normal lordosis of the lumbar spine. There is multilevel endplate spondylosis of the lumbar vertebrae. There is degenerative disc height narrowing T11-L2 and mild retrolistheses of L1 on L2 and L2 on L3 are also present. There is slight depression of the superior L3 vertebral endplate. Hypertrophic ossific changes noted about the mid to lower lumbar facets. The soft tissue structures are unremarkable. RAD/Scoliosis 2 or 3 views IMPRESSION: 1. Prior L2-L5 laminectomies, L4-5 discectomy with placement of prosthesis, and posterior fusion of the spine T10 through the sacroiliac joints with metal hardware, as described. 2. There is stable moderate compression deformity of the T10 vertebra and an exaggerated thoracic kyphosis at T9-10. 3. Multilevel degenerative changes of the spine. There is an 8 degree dextroscoliosis of the spine centered at T9, and 4 degree levoscoliosis of the spine centered at L4-5. There are mild retrolistheses of L1 on L2 and L2 on L3. 4. Slight depression of the superior L3 vertebral endplate, age uncertain. Electronically Signed: Rcik Marie MD at 17:16 EDT , Service support , CC: Aby Rosas MD; Fadumo Mandel DO Group Therapist: Signed CHEST PA AND LATERAL Observed: 12/09/2017 Status: F Source: [place] 9:06 AM [facility] Imaging Services [address] [place] [address] Chest PA and Lateral MR#: [id number] Acct: [id number] Name: DON STRONG Rep #: [id number] : 1945 F 72 From: Roe Sy MD PCP: Fadumo Mandel DO Status: REG CLI Study: Chest PA and Lateral Date of Exam: 12/09/17 Exam# [id number] Ordering Dr: Fadumo Mandel DO STUDY: X-RAY CHEST REASON FOR EXAM: Female, 72 years old. Two-week history of cough. TECHNIQUE: PA and lateral views of the chest. COMPARISON: Comparison is made with prior study dated September 28, 2017. FINDINGS: The lungs are clear and expanded. There is no demonstrated pleural abnormality. There is moderate cardiac enlargement. Normal mediastinum and graciela. Normal visualized pulmonary arteries. There is atherosclerotic tortuosity of the aortic arch and descending thoracic aorta. Prior fusion in the lower thoracic spine. 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 The patient is status post right reverse shoulder replacement. There is no demonstrated abnormality of the visualized soft tissue structures of the upper abdomen. RAD/Chest PA and Lateral IMPRESSION: Cardiomegaly. No acute abnormality is seen. Electronically Signed: Roe Sy MD at 9:46 EDT Tel [phone], Service support , CC: Fadumo Mandel DO Group Therapist: Signed VENOUS DUPLEX LOWER Observed: 12/07/2017 Status: F Source: [place] EXTREMITY 4:41 PM [facility] REPOSITORY [facility] Cardiovascular Services [address] [place] [id number] Venous Duplex US - Julio Extrem 12/05/17 1040 MR#: [id number] Acct: [id number] Name: DON STRONG Barry Rep #: [id number] : 1945 72 From: Jeevan Carroll MD Attending Dr: Fadumo Mandel DO Status: REG CLI Ordering Dr: Fadumo Mandel DO Date: 12/05/17 Location: [facility] Sex: F C Admitted: Reason For Study: edema RIGHT LEFT GSV is normal. GSV is normal. CFV is compressible, spontaneous, phasic, CFV is compressible, spontaneous, phasic, competent and demonstrates normal competent, and demonstrates normal augmentation. augmentation. FV is compressible, spontaneous, phasic, FV is compressible, spontaneous, phasic, competent and demonstrates normal competent and demonstrates normal augmentation. augmentation. POP V is compressible, spontaneous, phasic, POP V is compressible, spontaneous, phasic, competent and demonstrates normal competent and demonstrates normal augmentation. augmentation. T/P Trunk is compressible. T/P Trunk is compressible. PTV is compressible. PTV is compressible. RT PerV is compressible. LT PerV is compressible. Procedure Exam performed in department. The exam was of poor technical quality due to pt body habitus.. Limited views of all veins. A preliminary report was called and/or faxed to Dr. Mandel. Interpretation Summary Deep veins of the lower extremities are bilaterally patent and compressible segmentally. There is no evidence of deep vein thrombosis on either side. Valvular competence appears intact within the proximal deep venous systems bilaterally. The greater saphenous veins appear bilaterally patent and compressible segmentally. Ordering Physician: Fadumo Mandel Performed By: Joseph Benton RVT 12/07/17 1641 Date Jeevan Carroll MD CC: Fadumo Mandel DO Date Dictated: 12/05/17 1040 Date Transcribed: 12/07/17 1641 Group Therapist: Signed ORTHOPEDIC VISIT Observed: 11/02/2017 Status: F Source: [place] 8:47 PM [facility] REPOSITORY [facility] Orthopaedics AND Sports Medicine [address] [place] [address] OFFICE VISIT Date of Service: 10/29/17 MR#: [id number] Acct: [id number] Name: DON STRONG Rep #: [id number] : 1945 Provider: Aby Rosas MD Age/Sex: 71/F Location: [facility] Status: Signed Intake Intake Visit Reasons: LOW BACK Is patient in pain?: No Allergies No Known Allergies Allergy (Verified 10/29/17 15:51) Medications Atenolol [Tenormin (beta rema)] 50 mg PO DAILY 02/20/13 [History Confirmed 07/30/17] Hydroxychloroquine [Plaquenil] 200 mg PO BIDCM 02/20/13 [History Confirmed 07/30/17] Ropinirole HCl [Requip] 2 mg PO QHS PRN PRN 02/20/13 [History Confirmed 07/30/17] Gabapentin 400 mg PO 5X/DAY 05/05/13 [History Confirmed 07/30/17] Cyclobenzaprine [Flexeril] 10 mg PO TID PRN PRN 08/24/13 [History Confirmed 07/30/17] Infliximab [Remicade] 5 mg IV QMONTH 08/24/13 [History Confirmed 07/30/17] Multivitamins,Therapeutic [Multivitamin] 1 tab PO DAILY 08/24/13 [History Confirmed 07/30/17] Duloxetine Hcl [Cymbalta] 60 mg PO DAILY 05/10/15 [History Confirmed 09/19/17] Calcium Carbonate [Calcium] 600 mg PO BID 08/25/15 [History Confirmed 07/30/17] Levothyroxine [Synthroid] 50 mcg PO DAILY 01/23/16 [History Confirmed 09/19/17] Lansoprazole [Prevacid] 16 mg PO BID 08/21/16 [History Confirmed 09/19/17] Oxycodone Myristate [Xtampza ER] 18 mg PO BID 07/07/17 [History Confirmed 09/19/17] Acetaminophen [Tylenol] 1,000 mg PO Q8H PRN PRN tab 10/17/17 [Rx] Bisacodyl [Dulcolax] 10 mg PO DAILY PRN tab 10/17/17 [Rx] Calcium Carb/Vitamin D [Os-Isabelle 500MG + D] 1 tab PO BIDCM tab 10/17/17 [Rx] Calcium Carbonate [Tums] 500 mg PO Q4H PRN PRN tab 10/17/17 [Rx] Iron Polysaccharide Complex [Ferrex 150] 150 mg PO DAILYCM cap 10/17/17 [Rx] Melatonin 3 mg PO QHS PRN tab 10/17/17 [Rx] Menthol/Lanolin/Calamine/Znox [Calmoseptine Ointment] 1 applic TOPICAL BID@0600,2200 tube 10/17/17 [Rx] Metformin(XR) [Glucophage Xr] 500 mg PO DAILYCM tab 10/17/17 [Rx] Nystatin Powder [Mycostatin Powder] 1 applic TOPICAL 0600,2200 bottle 10/17/17 [Rx] Ondansetron [Zofran Odt] 4 mg PO Q6H PRN PRN tab 10/17/17 [Rx] Oxycodone CR [Oxycontin] 10 mg PO BID #14 tab 10/17/17 [Rx] Oxycodone [Oxyir] 5 - 10 mg PO Q6H PRN PRN #28 tab 10/17/17 [Rx] Polyethylene Glycol 3350 [Miralax] 17 gm PO DAILY packet 10/17/17 [Rx] Senna/Docusate Sodium [Senokot-S] 2 tab PO BID tab 10/17/17 [Rx] proMETHazine tablet [Phenergan tablet] 25 mg PO Q6H PRN PRN tab 10/17/17 [Rx] PFSH Surgical History H/O lumbosacral spine surgery (Acute) Social History Smoking Status: Never smoker HPI LOW BACK: Details: DON STRONG returns today 6 weeks s/p L1-S1 laminectomy with [id number] instrumented fusion dos 09/13/17 at [facility]. Patient is doing well and not having any pain. She denies any radiating pain or any changes with her neuropathy. She feels the surgery has been helpful. She denies fevers or chills. She saw plastics at [facility] and had the drain removed. She has been wearing her brace at all times except when she is sleeping in her recliner. Patient is taking tylenol for pain. She denies bowel or bladder issues or gait instability. she has been using her walker. Ortho Exam Spine Neuro: Yes Straight Leg Raise (negative bilaterally) General: alert, oriented x3 Skin: Yes healed Capillary Refill <2sec: Yes Gait: other (improved gait pattern) Motor: muscle tone normal throughout Sensory Exam: no sensory deficits noted DTR's: Rt Patellar: 2+, Lt Patellar: 2+, Rt Ankle: 2+, Lt Ankle: 2+ Details: neutral sagittal balance SPINE TESTING CERVICAL THORACIC LUMBAR Musculoskeletal General: Yes normal posture (improved posture. ) Thoracic/Lumbar Spine: other (no hardware prominence noted. no significant TTP at TL junction), straight leg raise negative bilaterally Strength 0=absent - 5=normal R Hip Flexor (L1-3): 5, L Hip Flexor (L1-3): 5, R Quadriceps (L2-4): 5, L Quadriceps (L2-4): 5, R Anterior Tibialis (L4-5): 4 (unchanged from preop), L Anterior Tibialis (L4-5): 4 (unchanged from preop), R Hamstrings (L5-S1): 5, L Hamstrings (L5-S1): 5, GS (S1): 5, L GS (S1): 5, R Peroneals (S1): 5, L Peroneals (S1): 5 Assessment AND Plan Problems 1. S/P spinal fusion Z98.1 Plan Imaging: XR scoliosis - stable instrumentation. evidence of compression of the T10 vertebral body I/R/P: 1. status post L1-S1 laminectomy with [id number] instrumented fusion, 09/13/2017 2. bilateral ankle weakness, chronic 3. psoriatic arthritis with DMARD 4. fibromyalgia 5. DM 6. BMI 51 Ms. Strong is doing well 6 weeks postop. 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 Reviewed imaging findings at length with the patient as well as option of further surgical intervention. The patient declines. Recommend continued TLSO brace wear at all times. Reviewed restrictions. Avoid NSAIDs. Follow up in 6 weeks with XR scoliosis or sooner if issues arise. Plan of care discussed. All questions answered. She is in understanding. Orders Orders: Coding Level of Care Code Global Post Op Diagnoses S/P spinal fusion Z98.1 11/02/172046 <Electronically signed by Aby Rosas MD> Date Aby Rosas MD Cosigner Signature: Date (if applicable) CC: Khalida Conroy MD SCOLIOSIS 2 OR 3 VIEWS Observed: 10/29/2017 Status: F Source: [place] 3:24 PM [facility]POS[facility]ORY [facility] Imaging Services [address] [place] [address] Scoliosis 2 or 3 views MR#: [id number] Acct: [id number] Name: DON STRONG Rep #: [id number] : 1945 F 71 From: Jesse Reynolds MD PCP: Fadumo Mandel DO Status: REG CLI Study: Scoliosis 2 or 3 views Date of Exam: 10/29/17 Exam# [id number] Ordering Dr: Aby Rosas MD STUDY: XR SPINE ENTIRE THORACIC T LUMBAR (W SKULL, CERVICAL AND SACRAL SPINE IF PERFORMED) REASON FOR EXAM: Female, 71 years old. Postop TECHNIQUE: Radiological exam, spine, entire thoracic and lumbar, including skull, cervical and sacral spine if performed (eg, scoliosis evaluation); 2 or 3 views. 2 views. COMPARISON: 08/23/2016 FINDINGS: Since the previous study, patient has undergone pedicle screw fusion surgery from T10 to S1. There are also screws that traverse the SI joints, and there has been a laminectomy. The hardware is intact and free of complication. There is intervertebral disc space narrowing throughout the thoracic and lumbar spine with sclerotic endplate changes. No acute fracture or suspicious osseous lesion. RAD/Scoliosis 2 or 3 views IMPRESSION: Postsurgical changes throughout the lower thoracic and lumbar spine. Hardware is intact and free of complication Degenerative changes throughout the visualized spine. No demonstrated fracture or suspicious osseous lesion Electronically Signed: Rick Reynolds MD at 15:52 EDT , Service support , CC: Aby Rosas MD; Fadumo Mandel DO Group Therapist: Signed BEDSIDE GLUCOSE Collected: 10/25/2017 Status: F Source: [place] 6:55 AM [facility] REPOSITORY TYPE CODE TESTS RESULT OUT OF RANGE REFERENCE UNITS LAB L501.080 70-110 mg/dL Normal BEDSIDE GLU 105 Result Comment: MANAGEMENT OF PATIENT CARE PER NURSING PROTOCOL Performed By: #### L501.080 #### [facility] Laboratory Point of Care [facility] [address] [address] HOME HEALTH PROGRESS Observed: 10/24/2017 Status: F Source: [place] NOTE 5:44 PM [facility]POS[facility] Medical Records Department [address] [place] [address] Home Health Progress Note [id number] Encounter Encounter Date: 10/24/17 1743 MR#: [id number] Acct: [id number] Name: DON STRONG Rep #: [id number] : 1945 71 From: Mello Brantley MD PCP: Fadumo Mandel DO Status: ADM IN Location: [place] [address] Home Health Note - Plan Overview of reason of hospitalization: 71 year old female with below past medical history hospitalized for lumbar spinal surgery 09/13/[address] Aby Rosas, admitted to TCU with debility, here for rehabilitation, strengthening, prior to discharge home. Discharge home alone, with Home Health Services. Problems: Patient was seen for Lumbar spinal stenosis (Chronic) Muscle spasm (Chronic) Constipation (Chronic) Depression (Chronic) Neuropathic pain (Chronic) Rheumatoid arthritis (Chronic) Insomnia (Chronic) Diabetes mellitus (Chronic) Nausea (Chronic) GERD (gastroesophageal reflux disease) (Chronic) Restless leg syndrome (Acute) Sleep apnea (Chronic) Complete List of Medical Problems Morbid obesity (Chronic) Fibromyalgia (Chronic) IBS (irritable bowel syndrome) (Chronic) Lumbar spinal stenosis (Chronic) Muscle spasm (Chronic) Constipation (Chronic) Depression (Chronic) Neuropathic pain (Chronic) Rheumatoid arthritis (Chronic) Insomnia (Chronic) Diabetes mellitus (Chronic) Nausea (Chronic) GERD (gastroesophageal reflux disease) (Chronic) Restless leg syndrome (Acute) Sleep apnea (Chronic) Obstructive sleep apnea (Chronic) Acute exacerbation of chronic low back pain (Acute) Peripheral neuropathy (Chronic) Hypothyroidism (Chronic) Chronic low back pain (Chronic) Psoriatic arthritis (Chronic) Type 2 diabetes mellitus (Chronic) Hypertension (Chronic) - Requirements and Reasons Disciplines Needed/Ordered: Physical Therapy Reason for Disciplines: Gait Training, Stair Training, Fall Prevention, Home Safety/Equipment Instruction, Balance and/or Posture Training, Transfer Training Related To: Physical Impairments, Unsteady Gait/Balance, Fall Risk Patient is unable to leave the home: Without Aid of Supportive Devices (crutches, cane, wheelchair, walker), Without the assistance of another person - Additional Disciplines Additional Disciplines Needed/Ordered: Occupational Therapy 10/24/171743 <Electronically signed by Mello Brantley MD> Date Mello Brantley MD Cosigner Signature (if indicated): Date CC: Signed DISCHARGE SUMMARY Observed: 10/24/2017 Status: F Source: [place] 5:42 PM [facility] Medical Records Department [address] [place] [address] Discharge Summary 10/17/17 2204 MR#: [id number] Acct: [id number] Name: DON STRONG Rep #: [id number] : 1945 71 From: Mello Brantley MD PCP: Fadumo Mandel DO Status: ADM IN Location: [place] [id number] ADDENDUM by Mello Brantley MD on 10/24/17 at 1742 Code Visit Discharge home alone with Home Health Services 10/25/2017. 10/24/17 1742 <Electronically signed by Mello Brantley MD> Date Mello Brantley MD cc: Fadumo Mandel DO; Mello Brantley MD * Signed Discharge Date and Diagnosis - Problem List Patient Problems: Active and Suspected Problems Restless leg syndrome (Acute) Date of Admission: 09/19/17 Date of Discharge: 10/20/17 - Primary Discharge Diagnosis Active and Suspected Problems Restless leg syndrome (Acute) - Secondary Discharge Diagnosis Chronic Problems Morbid obesity (Chronic) Fibromyalgia (Chronic) IBS (irritable bowel syndrome) (Chronic) Lumbar spinal stenosis (Chronic) Muscle spasm (Chronic) Constipation (Chronic) Depression (Chronic) Neuropathic pain (Chronic) Rheumatoid arthritis (Chronic) Insomnia (Chronic) Diabetes mellitus (Chronic) Nausea (Chronic) GERD (gastroesophageal reflux disease) (Chronic) Sleep apnea (Chronic) Obstructive sleep apnea (Chronic) Peripheral neuropathy (Chronic) Hypothyroidism (Chronic) Chronic low back pain (Chronic) Psoriatic arthritis (Chronic) Type 2 diabetes mellitus (Chronic) Hypertension (Chronic) Hospital Course and Treatment Imaging Results: 09/20/17 10:42 Diet: Calorie Controlled Food consistency:: Regular Liquid Consistency:: Regular/Thin Is pt able to select menu?: Yes Diet Comments: carb control, low cholesterol How many daily calories?: 1800 calorie Clinical Impression(s) from Imaging Studies Chest X-Ray 09/28/17 14:25 Abdomen X-Ray 10/05/17 10:15 IMPRESSION: No bowel obstruction. Constipation. Electronically Signed: Lázaro John, at 15:15 EDT Tel , Service support , Labs (Last 48 Hours) POC Glucose 124 H 101 Operations: None, - - Epidural injection Procedures: None Summary of Care Provided: The patient is a 71 year old Female with below past medical history hospitalized for lumbar spinal surgery 09/13/[address] Aby Rosas, admitted to TCU with debility, here for rehabilitation, strengthening, prior to discharge home with family. Discharge to [facility] for continued care. Discharge Diet: No Restrictions Discharge Activity: Return to Normal Activity, May Shower, Use Walker Weight Bearing Status: Weight bearing as tolerated Call your doctor if you observe: Fever of 101 or Higher, Inability to urinate, Inability to have a bowel movement, Shortness of breath, Chest pain, Uncontrolled pain Home Medications: Medications to take at Discharge Atenolol [Tenormin (beta rema)] 50 mg PO DAILY 02/20/13 Hydroxychloroquine [Plaquenil] 200 mg PO BIDCM 02/20/13 Ropinirole HCl [Requip] 2 mg PO QHS PRN PRN 02/20/13 Gabapentin 400 mg PO 5X/DAY 05/05/13 Cyclobenzaprine [Flexeril] 10 mg PO TID PRN PRN 08/24/13 Infliximab [Remicade] 5 mg IV QMONTH 08/24/13 Multivitamins,Therapeutic [Multivitamin] 1 tablet PO DAILY 08/24/13 Duloxetine Hcl [Cymbalta] 60 mg PO DAILY 05/10/15 Calcium Carbonate [Calcium] 600 mg PO BID 08/25/15 Levothyroxine [Synthroid] 50 mcg PO DAILY 01/23/16 Lansoprazole [Prevacid] 16 mg PO BID 08/21/16 Oxycodone Myristate [Xtampza ER] 18 mg PO BID 07/07/17 Acetaminophen [Tylenol] 1,000 mg PO Q8H PRN PRN tablet 10/17/17 Bisacodyl [Dulcolax] 10 mg PO DAILY PRN tablet 10/17/17 Calcium Carb/Vitamin D [Os-Isabelle 500MG + D] 1 tablet PO BIDCM tablet 10/17/17 Calcium Carbonate [Tums] 500 mg PO Q4H PRN PRN tablet 10/17/17 Iron Polysaccharide Complex [Ferrex 150] 150 mg PO DAILYCM capsule 10/17/17 Melatonin 3 mg PO QHS PRN tablet 10/17/17 Menthol/Lanolin/Calamine/Znox [Calmoseptine Ointment] 1 applic TOPICAL BID@0600,2200 tube 10/17/17 Metformin(XR) [Glucophage Xr] 500 mg PO DAILYCM tablet 10/17/17 Nystatin Powder [Mycostatin Powder] 1 applic TOPICAL 0600,2200 bottle 10/17/17 Ondansetron [Zofran Odt] 4 mg PO Q6H PRN PRN tablet 10/17/17 Oxycodone CR [Oxycontin] 10 mg PO BID #14 tab 10/17/17 Oxycodone [Oxyir] 5 - 10 mg PO Q6H PRN PRN #28 tab 10/17/17 Polyethylene Glycol 3350 [Miralax] 17 gm PO DAILY packet 10/17/17 Senna/Docusate Sodium [Senokot-S] 2 tablet PO BID tablet 10/17/17 proMETHazine tablet [Phenergan tablet] 25 mg PO Q6H PRN PRN tablet 10/17/17 Following Prescrptions Were Given to Patient: Oxycodone [Oxyir] 5 - 10 mg PO Q6H PRN PRN #28 tab PRN Reason: Severe Pain (6-01/29) Oxycodone CR [Oxycontin] 10 mg PO BID #14 tab Primary Care Physician: Fadumo Mandel DO [Primary Care Provider] - Please follow up with your Primary Care Physician in: 1 week. Please Follow Up With: DEEP Huynh When: 2 weeks. Please Follow Up With: DEEP Holly When: 2 weeks. Please Follow Up With: Dr. Rosas When: 2 weeks. Disposition: Asstd Living/Non-Skill NH Minutes spent on discharge:: 35 Patient Condition:: Stable Medical Necessity - Tobacco Use Smoking Status: Never smoker Tobacco Use: Non-smoker Meaningful Use Info Meaningful Use Diagnoses (Choose all that apply): None applicable 10/17/172205 <Electronically signed by Mello Brantley MD> Date Mello Brantley MD Cosigner Signature (if applicable): Date CC: Fadumo Mandel DO; Mello Brantley MD Signed TRANSFER TO [facility] Observed: 10/24/2017 Status: F Source: [facility] 5:42 PM [facility]POS[facility] Medical Records Department [address] [place] [address] Transfer to [facility] MR#: [id number] Acct: [id number] Name: DON STRONG Rep #: [id number] : 1945 71 From: Mello Brantley MD PCP: Fadumo Mandel DO Status: ADM IN DON STRONG [id number] (Patient) (Health Ins. Claim No.) (Day of Discharge to Facility) Certification of patient admission REQUIRED AT TIME OF ADMISSION. I CERTIFY THAT POST-HOSPITAL ECF SERVICES ARE REQUIRED TO BE GIVEN ON AN IN-PATIENT BASIS BECAUSE OF THE ABOVE NAMED PATIENT'S NEED FOR LONG TERM CARE ON A CONTINUING BASIS FOR THE CONDITION(S) FOR WHICH HE/SHE WAS RECEIVING IN-PATIENT HOSPITAL SERVICES PRIOR TO HIS/HER TRANSFER TO [facility]. 10/17/172207 <Electronically signed by Mello Brantley MD> Date Mello Brantley MD ADDENDUM by Mello Brantley MD on 10/24/17 at 1742 Code Visit Cancel transfer to senior living. 10/24/17 1742 <Electronically signed by Mello Brantley MD> Date Mello Brantley MD cc: Fadumo Mandel DO * Signed - Diet 09/20/17 10:42 Diet: Calorie Controlled Food consistency:: Regular Liquid Consistency:: Regular/Thin Is pt able to select menu?: Yes Diet Comments: carb control, low cholesterol How many daily calories?: 1800 calorie - Routine Orders/Code Status Suppository Type: Dulcolax 10mg Suppository Frequency: Daily PRN Code Status: Full Code - Wound(s) Back Wound Type: Surgical Incision Dressing Change: Dry Sterile Dressing - Therapies Weight Bearing: Weight bearing as tolerated Extremity Affected:: Bilateral Lower Physical Therapy: Eval and Treat Occupational Therapy: Eval and Treat - Problem/Diagnosis (1) Lumbar spinal stenosis Status: Chronic Current Visit: Yes (2) Muscle spasm Status: Chronic Current Visit: Yes (3) Constipation Status: Chronic Current Visit: Yes (4) Depression Status: Chronic Current Visit: Yes (5) Neuropathic pain Status: Chronic Current Visit: Yes (6) Rheumatoid arthritis Status: Chronic Current Visit: Yes (7) Insomnia Status: Chronic Current Visit: Yes (8) Diabetes mellitus Status: Chronic Current Visit: Yes (9) Nausea Status: Chronic Current Visit: Yes (10) GERD (gastroesophageal reflux disease) Status: Chronic Current Visit: Yes (11) Restless leg syndrome Status: Acute Current Visit: Yes (12) Hypertension Status: Chronic Current Visit: No (13) Sleep apnea Status: Chronic Current Visit: Yes - Allergies/Procedures Done in Hospital Allergies/Adverse Reactions: Allergies No Known Allergies Allergy (Verified 07/30/17 09:00) - Type of Care/Length of Stay Estimated LOS: More Than 30 Days Type of Care Needed: Intermediate Rehab Potential: Fair Prognosis: Fair - Additional Orders/Day of Discharge Day of Discharge: 10/20/17 - Dietary and Speech Recommendations Dietitian Recommendations/Changes: Please reweigh res for accuracy as question 16.7 kg wt loss x 1 wk. - Follow Up Care Primary Care Physician: Fadumo Mandel DO [Primary Care Provider] - Please follow up with your Primary Care Physician in: 1 week. Please Follow Up With: DEEP Huynh When: 2 weeks. Please Follow Up With: DEEP Holly When: 2 weeks. Please Follow Up With: Dr. Rosas When: 2 weeks. 10/17/172207 <Electronically signed by Mello Brantley MD> Date Mello Brantley MD CC: Fadumo Mandel DO Signed DISCHARGE INSTRUCTION Observed: 10/24/2017 Status: F Source: [place] 5:41 PM [facility] Medical Records Department [address] [place] [address] Instructions for Home/Discharge Instructions 10/17/172200 MR#: [id number] Acct: [id number] Name: DON STRONG Rep #: [id number] : 1945 71 From: Mello Brantley MD PCP: Fadumo Mandel DO Status: ADM IN ADDENDUM by Mello Brantley MD on 10/24/17 at 1741 Discharge home alone with Home Health Services 10/25/2017. Date Mello Brantley MD cc: Fadumo Mandel DO * Signed - Discharge Diagnoses Current Active Problems: Current Active and Chronic Problems Lumbar spinal stenosis (Chronic) Muscle spasm (Chronic) Constipation (Chronic) Depression (Chronic) Neuropathic pain (Chronic) Rheumatoid arthritis (Chronic) Insomnia (Chronic) Diabetes mellitus (Chronic) Nausea (Chronic) GERD (gastroesophageal reflux disease) (Chronic) Restless leg syndrome (Acute) Sleep apnea (Chronic) You will use the following diet at home:: No restrictions, Regular Your food should be the consistency of: Regular Your liquids should be the consistency of: Regular/Thin Discharge Activity: Return to Normal Activity, May Shower, Use Walker Weight Bearing Status: Weight bearing as tolerated Call your doctor if you observe: Fever of 101 or Higher, Inability to urinate, Inability to have a bowel movement, Shortness of breath, Chest pain, Uncontrolled pain Allergies/Adverse Reactions: Allergies No Known Allergies Allergy (Verified 07/30/17 09:00) Medications to take at Discharge Atenolol [Tenormin (beta rema)] 50 mg PO DAILY 02/20/13 Hydroxychloroquine [Plaquenil] 200 mg PO BIDCM 02/20/13 Ropinirole HCl [Requip] 2 mg PO QHS PRN PRN 02/20/13 Gabapentin 400 mg PO 5X/DAY 05/05/13 Cyclobenzaprine [Flexeril] 10 mg PO TID PRN PRN 08/24/13 Infliximab [Remicade] 5 mg IV QMONTH 08/24/13 Multivitamins,Therapeutic [Multivitamin] 1 tablet PO DAILY 08/24/13 Duloxetine Hcl [Cymbalta] 60 mg PO DAILY 05/10/15 Calcium Carbonate [Calcium] 600 mg PO BID 08/25/15 Levothyroxine [Synthroid] 50 mcg PO DAILY 01/23/16 Lansoprazole [Prevacid] 16 mg PO BID 08/21/16 Oxycodone Myristate [Xtampza ER] 18 mg PO BID 07/07/17 Acetaminophen [Tylenol] 1,000 mg PO Q8H PRN PRN tablet 10/17/17 Bisacodyl [Dulcolax] 10 mg PO DAILY PRN tablet 10/17/17 Calcium Carb/Vitamin D [Os-Isabelle 500MG + D] 1 tablet PO BIDCM tablet 10/17/17 Calcium Carbonate [Tums] 500 mg PO Q4H PRN PRN tablet 10/17/17 Iron Polysaccharide Complex [Ferrex 150] 150 mg PO DAILYCM capsule 10/17/17 Melatonin 3 mg PO QHS PRN tablet 10/17/17 Menthol/Lanolin/Calamine/Znox [Calmoseptine Ointment] 1 applic TOPICAL BID@0600,2200 tube 10/17/17 Metformin(XR) [Glucophage Xr] 500 mg PO DAILYCM tablet 10/17/17 Nystatin Powder [Mycostatin Powder] 1 applic TOPICAL 0600,2200 bottle 10/17/17 Ondansetron [Zofran Odt] 4 mg PO Q6H PRN PRN tablet 10/17/17 Oxycodone CR [Oxycontin] 10 mg PO BID #14 tab 10/17/17 Oxycodone [Oxyir] 5 - 10 mg PO Q6H PRN PRN #28 tab 10/17/17 Polyethylene Glycol 3350 [Miralax] 17 gm PO DAILY packet 10/17/17 Senna/Docusate Sodium [Senokot-S] 2 tablet PO BID tablet 10/17/17 proMETHazine tablet [Phenergan tablet] 25 mg PO Q6H PRN PRN tablet 10/17/17 The following prescriptions were given: Oxycodone [Oxyir] 5 - 10 mg PO Q6H PRN PRN #28 tab PRN Reason: Severe Pain (6-10) Oxycodone CR [Oxycontin] 10 mg PO BID #14 tab Primary Care Physician: Fadumo Mandel DO [Primary Care Provider] - Please follow up with your Primary Care Physician in: 1 week. Please Follow Up With: DEEP Huynh When: 2 weeks. Please Follow Up With: DEEP Holly When: 2 weeks. Please Follow Up With: Dr. Rosas When: 2 weeks. Proposed Discharge Date: 10/20/17 10/17/172203 <Electronically signed by Mello Brantley MD> Date Mello Brantley MD CC: Fadumo Mandel DO BEDSIDE GLUCOSE Collected: 10/24/2017 Status: F Source: [place] 6:13 AM [facility] REPOSITORY TYPE CODE TESTS RESULT OUT OF RANGE REFERENCE UNITS LAB L501.080 70-110 mg/dL Normal BEDSIDE GLU 105 Result Comment: MANAGEMENT OF PATIENT CARE PER NURSING PROTOCOL Performed By: #### L501.080 #### [facility] Point of Care [address] [place] [address] BEDSIDE GLUCOSE Collected: 10/23/2017 Status: F Source: [place] 7:10 AM [facility] REPOSITORY TYPE CODE TESTS RESULT OUT OF RANGE REFERENCE UNITS LAB L501.080 70-110 mg/dL Normal BEDSIDE GLU 104 Result Comment: MANAGEMENT OF PATIENT CARE PER NURSING PROTOCOL Performed By: #### L501.080 #### [facility] Point of Care [address] [place] [address] BASIC METABOLIC Collected: 10/23/2017 Status: F Source: [place] PROFILE (BMP) 6:24 AM [facility] REPOSITORY TYPE CODE TESTS RESULT OUT OF RANGE REFERENCE UNITS LAB L501.0100 74-106 mg/dL Normal GLU 95 Result Comment: Please note revised GLUCOSE reference range effective 2017. LAB L501.1000 7-18 mg/dL Normal BUN 10 LAB L501.1100 0.55-1.02 mg/dL Normal CREAT,SERUM 0.79 Result Comment: The validity of the calculated GFR AND GFRAA in patients over 70 years has not been determined. Clinical correlation is essential. LAB L501.1110 >60 mL/min Normal EST GFR 76 Result Comment: Non- GFR Calc LAB L501.1115 >60 mL/min Normal EST GFR - AA 92 Result Comment: GFR Calc LAB L501.1255 ml/min Normal Estimated CRCL 38.94 LAB L501.1300 10-20 RATIO Normal BUN/CRE 12.7 LAB L501.2200 8.5-10 mg/dL Normal .1 CA 8.8 LAB L501.5300 136-14 mmol/L Normal 5 NA 140 LAB L501.5600 3.5-5. mmol/L Normal 1 K 3.9 LAB L501.5900 98-107 mmol/L Normal CL 105 LAB L501.6100 21.0-3 mmol/L Normal 2.0 CO2 29.0 LAB L501.6200 5-15 Normal GAP 6 Performed By: #### L500.2500 #### [facility] [address], [address] CBC W/DIFF, AUTOMATED Collected: 10/23/2017 Status: F Source: [place] 6:24 AM [facility] REPOSITORY TYPE CODE TESTS RESULT OUT OF RANGE REFERENCE UNITS LAB L100.1000 4.4-11.0 K/mm3 Normal WBC 7.0 LAB L100.1200 4.2-5.4 M/mm3 Low RBC 4.06 LAB L100.1300 12.0-15.0 g/dl Low HGB 10.9 LAB L100.1400 37-47 % Low HCT 36.5 LAB L100.1500 81-99 fL Normal MCV 89.9 LAB L100.1600 27.0-32.0 pg Low MCH 26.8 LAB L100.1700 32-36 g/gl Low MCHC 29.9 LAB L100.1810 11.6-14.6 % Normal RDW CV 14.5 LAB L100.1820 35.1-43.9 fl High RDW SD 47.4 LAB L100.1900 150-450 K/mm3 Normal PLT 384 LAB L100.2000 6.2-12.0 fl Normal MPV 9.2 LAB L100.2100 47-70 % Normal NEUT% 60.5 LAB L100.2200 19-41 % Normal LY% 22.4 LAB L100.2300 0-10 % Normal MONO% 8.6 LAB L100.2400 0-5 % High EO% 7.0 LAB L100.2500 0-1 % High BASO% 1.4 LAB L100.2550 0.0-0.9 % Normal IM GRAN % 0.100 Result Comment: IG% - Immature Granulocytes (promyelocytes, myelocytes and metamyelocytes) > 1% indicates that a LEFT SHIFT is Present. LAB L100.2620 2.0-7.7 X10 3/uL Normal Absolute Neut 4.2 LAB L100.2720 0.83-4.51 X10 3/ul Normal Absolute Lymph 1.57 Performed By: #### L100.0100 #### [facility] [address] [place], [place], [address] BEDSIDE GLUCOSE Collected: 10/22/2017 Status: F Source: [place] 6:40 AM [facility] REPOSITORY TYPE CODE TESTS RESULT OUT OF RANGE REFERENCE UNITS LAB L501.080 70-110 mg/dL Normal BEDSIDE GLU 94 Result Comment: MANAGEMENT OF PATIENT CARE PER NURSING PROTOCOL Performed By: #### L501.080 #### [facility] Point of Care [address] [place] [address] BEDSIDE GLUCOSE Collected: 10/21/2017 Status: F Source: [place] 6:51 AM [facility] REPOSITORY TYPE CODE TESTS RESULT OUT OF RANGE REFERENCE UNITS LAB L501.080 70-110 mg/dL Normal BEDSIDE GLU 103 Result Comment: MANAGEMENT OF PATIENT CARE PER NURSING PROTOCOL Performed By: #### L501.080 #### [facility] Point of Care [address] [place] [address] BEDSIDE GLUCOSE Collected: 10/20/2017 Status: F Source: [place] 6:49 AM [facility] REPOSITORY TYPE CODE TESTS RESULT OUT OF RANGE REFERENCE UNITS LAB L501.080 70-110 mg/dL Normal BEDSIDE GLU 99 Result Comment: MANAGEMENT OF PATIENT CARE PER NURSING PROTOCOL Performed By: #### L501.080 #### [facility] Point of Care [address] [place] [address] BEDSIDE GLUCOSE Collected: 10/19/2017 Status: F Source: [place] 6:29 AM [facility] REPOSITORY TYPE CODE TESTS RESULT OUT OF RANGE REFERENCE UNITS LAB L501.080 70-110 mg/dL Normal BEDSIDE GLU 101 Result Comment: MANAGEMENT OF PATIENT CARE PER NURSING PROTOCOL Performed By: #### L501.080 #### [facility] Point of Care [address] [place] [address] BEDSIDE GLUCOSE Collected: 10/18/2017 Status: F Source: [place] 6:34 AM [facility] REPOSITORY TYPE CODE TESTS RESULT OUT OF RANGE REFERENCE UNITS LAB L501.080 70-110 mg/dL Normal BEDSIDE GLU 101 Result Comment: Dr Orders Followed MANAGEMENT OF PATIENT CARE PER NURSING PROTOCOL Performed By: #### L501.080 #### [facility] Point of Care [address] [place] [address] BEDSIDE GLUCOSE Collected: 10/17/2017 Status: F Source: [place] 6:50 AM [facility] REPOSITORY TYPE CODE TESTS RESULT OUT OF RANGE REFERENCE UNITS LAB L501.080 70-110 mg/dL Normal BEDSIDE GLU 101 Result Comment: MANAGEMENT OF PATIENT CARE PER NURSING PROTOCOL Performed By: #### L501.080 #### [facility] Point of Care [address] [place], [place] [id number] BEDSIDE GLUCOSE Collected: 10/16/2017 Status: F Source: [place] 7:02 AM [facility] REPOSITORY TYPE CODE TESTS RESULT OUT OF REFERENCE UNITS RANGE LAB L501.080 70-110 mg/dL High BEDSIDE GLU 124 Result Comment: MANAGEMENT OF PATIENT CARE PER NURSING PROTOCOL Performed By: #### L501.080 #### [facility] Point of Care [address] [place] [address] BEDSIDE GLUCOSE Collected: 10/15/2017 Status: F Source: [place] 6:58 AM [facility] REPOSITORY TYPE CODE TESTS RESULT OUT OF REFERENCE UNITS RANGE LAB L501.080 70-110 mg/dL High BEDSIDE GLU 115 Result Comment: MANAGEMENT OF PATIENT CARE PER NURSING PROTOCOL Performed By: #### L501.080 #### [facility] Point of Care [address] [place] [address] CBC W/DIFF, AUTOMATED Collected: 10/15/2017 Status: F Source: [place] 5:05 AM [facility] REPOSITORY TYPE CODE TESTS RESULT OUT OF RANGE REFERENCE UNITS LAB L100.1000 4.4-11.0 K/mm3 Normal WBC 7.2 LAB L100.1200 4.2-5.4 M/mm3 Low RBC 3.79 LAB L100.1300 12.0-15.0 g/dl Low HGB 10.7 LAB L100.1400 37-47 % Low HCT 35.1 LAB L100.1500 81-99 fL Normal MCV 92.6 LAB L100.1600 27.0-32.0 pg Normal MCH 28.2 LAB L100.1700 32-36 g/gl Low MCHC 30.5 LAB L100.1810 11.6-14.6 % High RDW CV 14.9 LAB L100.1820 35.1-43.9 fl High RDW SD 48.2 LAB L100.1900 150-450 K/mm3 Normal PLT 294 LAB L100.2000 6.2-12.0 fl Normal MPV 10.0 LAB L100.2100 47-70 % Normal NEUT% 60.3 LAB L100.2200 19-41 % Normal LY% 19.3 LAB L100.2300 0-10 % High MONO% 10.9 LAB L100.2400 0-5 % High EO% 8.1 LAB L100.2500 0-1 % High BASO% 1.1 LAB L100.2550 0.0-0.9 % Normal IM GRAN % 0.300 Result Comment: IG% - Immature Granulocytes (promyelocytes, myelocytes and metamyelocytes) > 1% indicates that a LEFT SHIFT is Present. LAB L100.2620 2.0-7.7 X10 3/uL Normal Absolute Neut 4.4 LAB L100.2720 0.83-4.51 X10 3/ul Normal Absolute Lymph 1.40 Performed By: #### L100.0100 #### [facility] [address] [place], [address] BASIC METABOLIC Collected: 10/15/2017 Status: F Source: [place] PROFILE ([facility]) 5:05 AM [facility] REPOSITORY TYPE CODE TESTS RESULT OUT OF RANGE REFERENCE UNITS LAB L501.0100 74-106 mg/dL Normal GLU 103 Result Comment: Fasting Glucose result from 100 to 125 mg/dL suggests IMPAIRED HOMEOSTASIS per A.D.A. criteria. Please note revised GLUCOSE reference range effective 2017. LAB L501.1000 7-18 mg/dL Normal BUN 7 LAB L501.1100 0.55-1.02 mg/dL Normal CREAT,SERUM 0.83 Result Comment: The validity of the calculated GFR AND GFRAA in patients over 70 years has not been determined. Clinical correlation is essential. LAB L501.1110 >60 mL/min Normal EST GFR 72 Result Comment: Non- GFR Calc LAB L501.1115 >60 mL/min Normal EST GFR - AA 87 Result Comment: GFR Calc LAB L501.1255 ml/min Normal Estimated CRCL 46.91 LAB L501.1300 10-20 RATIO Low BUN/CRE 8.4 LAB L501.2200 8.5-10 mg/dL Normal .1 CA 8.8 LAB L501.5300 136-14 mmol/L Normal 5 NA 142 LAB L501.5600 3.5-5. mmol/L Normal 1 K 3.8 LAB L501.5900 98-107 mmol/L Normal CL 103 LAB L501.6100 21.0-3 mmol/L Normal 2.0 CO2 31.0 LAB L501.6200 5-15 Normal GAP 8 Performed By: #### L500.2500 #### [facility] [address] [place], [address] BEDSIDE GLUCOSE Collected: 10/14/2017 Status: F Source: [place] 6:45 AM [facility] REPOSITORY TYPE CODE TESTS RESULT OUT OF RANGE REFERENCE UNITS LAB L501.080 70-110 mg/dL Normal BEDSIDE GLU 98 Result Comment: MANAGEMENT OF PATIENT CARE PER NURSING PROTOCOL Performed By: #### L501.080 #### [facility] Point of Care [address] [place] [address] BEDSIDE GLUCOSE Collected: 10/13/2017 Status: F Source: [place] 6:31 AM [facility] REPOSITORY TYPE CODE TESTS RESULT OUT OF REFERENCE UNITS RANGE LAB L501.080 70-110 mg/dL High BEDSIDE GLU 112 Result Comment: MANAGEMENT OF PATIENT CARE PER NURSING PROTOCOL Performed By: #### L501.080 #### [facility] Point of Care [address] [place] [address] BEDSIDE GLUCOSE Collected: 10/12/2017 Status: F Source: [place] 6:48 AM [facility] REPOSITORY TYPE CODE TESTS RESULT OUT OF RANGE REFERENCE UNITS LAB L501.080 70-110 mg/dL Normal BEDSIDE GLU 99 Result Comment: MANAGEMENT OF PATIENT CARE PER NURSING PROTOCOL Performed By: #### L501.080 #### [facility] Point of Care [address] [place] [address] BEDSIDE GLUCOSE Collected: 10/11/2017 Status: F Source: [place] 6:38 AM [facility] REPOSITORY TYPE CODE TESTS RESULT OUT OF RANGE REFERENCE UNITS LAB L501.080 70-110 mg/dL Normal BEDSIDE GLU 90 Result Comment: MANAGEMENT OF PATIENT CARE PER NURSING PROTOCOL Performed By: #### L501.080 #### [facility] Point of Care [address] [place] [address] BEDSIDE GLUCOSE Collected: 10/10/2017 Status: F Source: [place] 6:25 AM [facility] REPOSITORY TYPE CODE TESTS RESULT OUT OF RANGE REFERENCE UNITS LAB L501.080 70-110 mg/dL Normal BEDSIDE GLU 105 Result Comment: MANAGEMENT OF PATIENT CARE PER NURSING PROTOCOL Performed By: #### L501.080 #### [facility] Point of Care [address] [place] [address] BEDSIDE GLUCOSE Collected: 10/09/2017 Status: F Source: [place] 6:40 AM [facility] REPOSITORY TYPE CODE TESTS RESULT OUT OF REFERENCE UNITS RANGE LAB L501.080 70-110 mg/dL High BEDSIDE GLU 112 Result Comment: MANAGEMENT OF PATIENT CARE PER NURSING PROTOCOL Performed By: #### L501.080 #### [facility] Point of Care [address] [place] [address] BEDSIDE GLUCOSE Collected: 10/08/2017 Status: F Source: [place] 6:32 AM [facility] REPOSITORY TYPE CODE TESTS RESULT OUT OF RANGE REFERENCE UNITS LAB L501.080 70-110 mg/dL Normal BEDSIDE GLU 98 Result Comment: MANAGEMENT OF PATIENT CARE PER NURSING PROTOCOL Performed By: #### L501.080 #### [facility] Point of Care [address] [place] [address] CBC W/DIFF, AUTOMATED Collected: 10/08/2017 Status: F Source: [place] 5:10 AM [facility] REPOSITORY TYPE CODE TESTS RESULT OUT OF RANGE REFERENCE UNITS LAB L100.1000 4.4-11.0 K/mm3 Normal WBC 7.3 LAB L100.1200 4.2-5.4 M/mm3 Low RBC 3.78 LAB L100.1300 12.0-15.0 g/dl Low HGB 10.9 LAB L100.1400 37-47 % Low HCT 35.7 LAB L100.1500 81-99 fL Normal MCV 94.4 LAB L100.1600 27.0-32.0 pg Normal MCH 28.8 LAB L100.1700 32-36 g/gl Low MCHC 30.5 LAB L100.1810 11.6-14.6 % High RDW CV 15.4 LAB L100.1820 35.1-43.9 fl High RDW SD 50.5 LAB L100.1900 150-450 K/mm3 Normal PLT 340 LAB L100.2000 6.2-12.0 fl Normal MPV 9.7 LAB L100.2100 47-70 % Low NEUT% 44.8 LAB L100.2200 19-41 % Normal LY% 27.2 LAB L100.2300 0-10 % High MONO% 11.4 LAB L100.2400 0-5 % High EO% 14.5 LAB L100.2500 0-1 % High BASO% 1.6 LAB L100.2550 0.0-0.9 % Normal IM GRAN % 0.500 Result Comment: IG% - Immature Granulocytes (promyelocytes, myelocytes and metamyelocytes) > 1% indicates that a LEFT SHIFT is Present. LAB L100.2620 2.0-7.7 X10 3/uL Normal Absolute Neut 3.3 LAB L100.2720 0.83-4.51 X10 3/ul Normal Absolute Lymph 1.99 Performed By: #### L100.0100 #### [facility] [address] [place], [place], [address] BASIC METABOLIC Collected: 10/08/2017 Status: F Source: [place] PROFILE ([facility]) 5:10 AM [facility] REPOSITORY TYPE CODE TESTS RESULT OUT OF RANGE REFERENCE UNITS LAB L501.0100 74-106 mg/dL Normal GLU 87 Result Comment: Please note revised GLUCOSE reference range effective 2017. LAB L501.1000 7-18 mg/dL Normal BUN 11 LAB L501.1100 0.55-1.02 mg/dL Normal CREAT,SERUM 0.79 Result Comment: The validity of the calculated GFR AND GFRAA in patients over 70 years has not been determined. Clinical correlation is essential. LAB L501.1110 >60 mL/min Normal EST GFR 76 Result Comment: Non- GFR Calc LAB L501.1115 >60 mL/min Normal EST GFR - AA 92 Result Comment: GFR Calc LAB L501.1255 ml/min Normal Estimated CRCL 38.94 LAB L501.1300 10-20 RATIO Normal BUN/CRE 13.9 LAB L501.2200 8.5-10 mg/dL Normal .1 CA 8.7 LAB L501.5300 136-14 mmol/L Normal 5 NA 138 LAB L501.5600 3.5-5. mmol/L Normal 1 K 4.2 LAB L501.5900 98-107 mmol/L Normal CL 101 LAB L501.6100 21.0-3 mmol/L Normal 2.0 CO2 32.0 LAB L501.6200 5-15 Normal GAP 5 Performed By: #### L500.2500 #### [facility] [address] [facility] [place], [address] BEDSIDE GLUCOSE Collected: 10/07/2017 Status: F Source: [place] 6:20 AM [facility] REPOSITORY TYPE CODE TESTS RESULT OUT OF RANGE REFERENCE UNITS LAB L501.080 70-110 mg/dL Normal BEDSIDE GLU 101 Result Comment: MANAGEMENT OF PATIENT CARE PER NURSING PROTOCOL Performed By: #### L501.080 #### [facility] Point of Care [address] [place] [address] BEDSIDE GLUCOSE Collected: 10/06/2017 Status: F Source: [place] 6:44 AM [facility] REPOSITORY TYPE CODE TESTS RESULT OUT OF RANGE REFERENCE UNITS LAB L501.080 70-110 mg/dL Normal BEDSIDE GLU 95 Result Comment: MANAGEMENT OF PATIENT CARE PER NURSING PROTOCOL Performed By: #### L501.080 #### [facility] Point of Care [address] [facility] [place] [address] URINALYSIS, COMPLETE Collected: 10/05/2017 Status: F Source: [place] 3:00 PM [facility] REPOSITORY Order Comment: Diagnosis: nausea Order Date: 10/05/17 Has pt arrived? Y How was Urine Obtained? BLADDER TAP TYPE CODE TESTS RESULT OUT OF RANGE REFERENCE UNITS LAB L400.3000 Yellow COLOR Normal Yellow LAB L400.3050 Clear Normal CLARITY Clear LAB L400.3200 Normal mg/dl Normal GLUCOSE, UR Normal LAB L400.3300 Negative mg/dL Normal BILIRUBIN URINE Negative LAB L400.3400 Negative mg/dl Normal KETONE UR Negative LAB L400.3465 1.002-1.030 Normal SP.GR. DIPSTX 1.010 LAB L400.3550 5.0 - 8.0 pH UR Normal 7.0 LAB L400.3600 Negative mg/dl PROT Normal DIPSTX Negative LAB L400.3700 Normal mg/dl Normal UROBILI Normal LAB L400.3750 Negative Normal NITRITE UR Negative LAB L400.3780 Negative /ul High 25 OCCULT BLOOD-UR LAB L400.3800 Negative /ul LEUK Normal ESTERASE Negative LAB L400.4050 0-5 /hpf WBC 0 Normal SEEN LAB L400.4100 0-5 /hpf Normal RBC-UA 0-5 SEEN LAB L400.4150 5-10 /hpf SQUAM Normal EPI 5-10 SEEN LAB L400.4300 None Seen /hpf Normal BACTERIA RARE LAB L400.4350 <or=2+ /hpf 0 Normal MUCUS, URINE SEEN Performed By: #### L400.0001 #### [facility] [address] [place], [place], [address] Observed: 10/05/2017 Status: F Source: [place] CULTURE, URINE 3:00 PM [facility] REPOSITORY Diagnosis: nausea Order Date: 10/05/17 Has pt arrived? Y Urine Culture ORGANISM 1: Burkholderia cepacia [place] Count 11,000-25,000 Burkholderia cepacia: REACTION Amikacin $ 4 R Aztreonam $$$ 4 S Ceftazidime *NF 2 S Ceftriaxone $ 16 I Ciprofloxacin $ <=0.25 R Gentamicin $ 4 R Imipenem *NF 2 R Levofloxacin $ 1 S Meropenem $ 0.5 S Piperacillin/Tazobactam $$ <=4 S Tobramycin $ <=1 R Trimethoprim/Sulfametho $ 80 R (NF) indicates non-formulary drug at [facility]. Approval by Infectious Disease Specialist required before non-formulary drugs may be ordered and/or dispensed. Performed By: #### M100.0650 #### [facility] [address] [place], [address] ABD INC DECUB Observed: 10/05/2017 Status: F Source: [place] AND/OR ERECT 10:17 AM [facility] REPOSITORY [facility] Services [address] [place] [address] Abd Inc Decub and/or Erect MR#: [id number] Acct: [id number] Name: DON STRONG Rep #: [id number] : 1945 F 71 From: Lázaro John MD PCP: Fadumo Mandel DO Status: ADM IN Study: Abd Inc Decub and/or Erect Date of Exam: 10/05/17 Exam# [id number] Ordering Dr: Mello Brantley MD STUDY: X-RAY - ABDOMEN/PELVIS REASON FOR EXAM: Female, 71 years old. Nausea TECHNIQUE: AP supine and decubitus views of the abdomen and pelvis. COMPARISON: None. FINDINGS: There is no bowel obstruction. There is air and stool to the level of the rectum. There is a large amount of stool in the colon, consistent with constipation. There is no definite free air identified on the decubitus view. There are spinal fusion rods in place. RAD/Abd Inc Decub and/or Erect IMPRESSION: No bowel obstruction. Constipation. Electronically Signed: Lázaro John, at 15:15 EDT Tel , Service support , CC: Fadumo Mandel DO; Mello Brantley MD Group Therapist: Signed BEDSIDE GLUCOSE Collected: 10/05/2017 Status: F Source: [place] 6:36 AM [facility] REPOSITORY TYPE CODE TESTS RESULT OUT OF REFERENCE UNITS RANGE LAB L501.080 70-110 mg/dL High BEDSIDE GLU 115 Result Comment: MANAGEMENT OF PATIENT CARE PER NURSING PROTOCOL Performed By: #### L501.080 #### [facility] Point of Care [address] [place] [address] BEDSIDE GLUCOSE Collected: 10/04/2017 Status: F Source: [place] 6:23 AM [facility] REPOSITORY TYPE CODE TESTS RESULT OUT OF RANGE REFERENCE UNITS LAB L501.080 70-110 mg/dL Normal BEDSIDE GLU 109 Result Comment: MANAGEMENT OF PATIENT CARE PER NURSING PROTOCOL Performed By: #### L501.080 #### [facility] Point of Care [address] [place] [address] BEDSIDE GLUCOSE Collected: 10/03/2017 Status: F Source: [place] 6:31 AM [facility] REPOSITORY TYPE CODE TESTS RESULT OUT OF RANGE REFERENCE UNITS LAB L501.080 70-110 mg/dL Normal BEDSIDE GLU 98 Result Comment: MANAGEMENT OF PATIENT CARE PER NURSING PROTOCOL Performed By: #### L501.080 #### [facility] Point of Care [address] [place] [address] BEDSIDE GLUCOSE Collected: 10/02/2017 Status: F Source: [place] 6:58 AM [facility] REPOSITORY TYPE CODE TESTS RESULT OUT OF RANGE REFERENCE UNITS LAB L501.080 70-110 mg/dL Normal BEDSIDE GLU 108 Result Comment: MANAGEMENT OF PATIENT CARE PER NURSING PROTOCOL Performed By: #### L501.080 #### [facility] Point of Care [address] [place] [address] CBC W/DIFF, AUTOMATED Collected: 10/01/2017 Status: F Source: [place] 7:20 AM [facility] REPOSITORY TYPE CODE TESTS RESULT OUT OF RANGE REFERENCE UNITS LAB L100.1000 4.4-11.0 K/mm3 Normal WBC 6.4 LAB L100.1200 4.2-5.4 M/mm3 Low RBC 3.45 LAB L100.1300 12.0-15.0 g/dl Low HGB 9.9 LAB L100.1400 37-47 % Low HCT 32.6 LAB L100.1500 81-99 fL Normal MCV 94.5 LAB L100.1600 27.0-32.0 pg Normal MCH 28.7 LAB L100.1700 32-36 g/gl Low MCHC 30.4 LAB L100.1810 11.6-14.6 % High RDW CV 15.8 LAB L100.1820 35.1-43.9 fl High RDW SD 53.5 LAB L100.1900 150-450 K/mm3 Normal PLT 344 LAB L100.2000 6.2-12.0 fl Normal MPV 8.9 LAB L100.2100 47-70 % Normal NEUT% 59.8 LAB L100.2200 19-41 % Low LY% 18.8 LAB L100.2300 0-10 % High MONO% 10.5 LAB L100.2400 0-5 % High EO% 9.8 LAB L100.2500 0-1 % Normal BASO% 0.8 LAB L100.2550 0.0-0.9 % Normal IM GRAN % 0.300 Result Comment: IG% - Immature Granulocytes (promyelocytes, myelocytes and metamyelocytes) > 1% indicates that a LEFT SHIFT is Present. LAB L100.2620 2.0-7.7 X10 3/uL Normal Absolute Neut 3.8 LAB L100.2720 0.83-4.51 X10 3/ul Normal Absolute Lymph 1.20 Performed By: #### L100.0100 #### [facility] [address] [place], [address] BASIC METABOLIC Collected: 10/01/2017 Status: F Source: [place] PROFILE ([facility]) 7:20 AM [facility] REPOSITORY TYPE CODE TESTS RESULT OUT OF RANGE REFERENCE UNITS LAB L501.0100 74-106 mg/dL Normal GLU 100 Result Comment: Fasting Glucose result from 100 to 125 mg/dL suggests IMPAIRED HOMEOSTASIS per A.D.A. criteria. Please note revised GLUCOSE reference range effective 2017. LAB L501.1000 7-18 mg/dL Normal BUN 8 LAB L501.1100 0.55-1.02 mg/dL Normal CREAT,SERUM 0.66 Result Comment: The validity of the calculated GFR AND GFRAA in patients over 70 years has not been determined. Clinical correlation is essential. LAB L501.1110 >60 mL/min Normal EST GFR 93 Result Comment: Non- GFR Calc LAB L501.1115 >60 mL/min Normal EST GFR - AA 113 Result Comment: GFR Calc LAB L501.1255 ml/min Normal Estimated CRCL 38.94 LAB L501.1300 10-20 RATIO Normal BUN/CRE 12.1 LAB L501.2200 8.5-10 mg/dL Normal .1 CA 8.7 LAB L501.5300 136-14 mmol/L Normal 5 NA 139 LAB L501.5600 3.5-5. mmol/L Normal 1 K 4.1 LAB L501.5900 98-107 mmol/L Normal CL 101 LAB L501.6100 21.0-3 mmol/L High 2.0 CO2 33.0 LAB L501.6200 5-15 Normal GAP 5 Performed By: #### L500.2500 #### [facility] [address] [place], [address] BEDSIDE GLUCOSE Collected: 10/01/2017 Status: F Source: [place] 6:47 AM [facility] REPOSITORY TYPE CODE TESTS RESULT OUT OF REFERENCE UNITS RANGE LAB L501.080 70-110 mg/dL High BEDSIDE GLU 119 Result Comment: MANAGEMENT OF PATIENT CARE PER NURSING PROTOCOL Performed By: #### L501.080 #### [facility] Point of Care [address] [place] [address] BEDSIDE GLUCOSE Collected: 09/30/2017 Status: F Source: [place] 6:40 AM [facility] REPOSITORY Order Comment: RESULT(S) PREVIOUSLY REPORTED ON MANUAL REQUISITION DURING DOWNTIME. TYPE CODE TESTS RESULT OUT OF RANGE REFERENCE UNITS LAB L501.080 70-110 mg/dL Normal BEDSIDE GLU 93 Result Comment: MANAGEMENT OF PATIENT CARE PER NURSING PROTOCOL Performed By: #### L501.080 #### [facility] Point of Care [address] [place] [address] BEDSIDE GLUCOSE Collected: 09/29/2017 Status: F Source: [place] 6:37 AM [facility] REPOSITORY Order Comment: RESULT(S) PREVIOUSLY REPORTED ON MANUAL REQUISITION DURING DOWNTIME. TYPE CODE TESTS RESULT OUT OF REFERENCE UNITS RANGE LAB L501.080 70-110 mg/dL High BEDSIDE GLU 127 Result Comment: MANAGEMENT OF PATIENT CARE PER NURSING PROTOCOL Performed By: #### L501.080 #### [facility] Point of Care [address] [place] [address] CHEST PA AND LATERAL Observed: 09/28/2017 Status: F Source: [place] 2:17 PM [facility] REPOSITORY [facility] Imaging Services [address] [place] [address] Chest PA and Lateral MR#: [id number] Acct: [id number] Name: DON STRONG Rep #: [id number] : 1945 F 71 From: Trevor Field MD PCP: Fadumo Mandel DO Status: ADM IN Study: Chest PA and Lateral Date of Exam: 09/28/17 Exam# [id number] Ordering Dr: Mello Brantley MD STUDY: X-RAY CHEST REASON FOR EXAM: Female, 71 years old. Shortness of breath and cough TECHNIQUE: 2 views of the chest were obtained COMPARISON: August 23, 2014 chest radiograph FINDINGS: Cardiac size is enlarged. Mild perihilar streaky opacities. Right-sided humeral prosthesis. Degenerative changes in the thoracic spine. Multiple compression deformities of the thoracic vertebrae possibly chronic. Prior fusion at the thoracolumbar region. IMPRESSION: Cardiomegaly with small pulmonary vascular congestion. No evidence for focal airspace disease. No pneumothorax or pleural effusion. Electronically Signed: Trevor Field, at 15:01 EDT Tel , Service support , RAD/Chest PA and Lateral CC: Fadumo Mandel DO; Mello Brantley MD Group Therapist: Signed BEDSIDE GLUCOSE Collected: 09/28/2017 Status: F Source: [place] 6:51 AM [facility] REPOSITORY Order Comment: DRESULT(S) PREVIOUSLY REPORTED ON MANUAL REQUISITION DURING DOWNTIME. TYPE CODE TESTS RESULT OUT OF REFERENCE UNITS RANGE LAB L501.080 70-110 mg/dL High BEDSIDE GLU 112 Result Comment: MANAGEMENT OF PATIENT CARE PER NURSING PROTOCOL Performed By: #### L501.080 #### [facility] Point of Care [address] [place] [address] BEDSIDE GLUCOSE Collected: 09/27/2017 Status: F Source: [place] 6:48 AM [facility] REPOSITORY Order Comment: RESULT(S) PREVIOUSLY REPORTED ON MANUAL REQUISITION DURING DOWNTIME. TYPE CODE TESTS RESULT OUT OF RANGE REFERENCE UNITS LAB L501.080 70-110 mg/dL Normal BEDSIDE GLU 103 Result Comment: MANAGEMENT OF PATIENT CARE PER NURSING PROTOCOL Performed By: #### L501.080 #### [facility] Point of Care [address] [place] [address] BEDSIDE GLUCOSE Collected: 09/22/2017 Status: F Source: [place] 6:43 AM [facility] REPOSITORY TYPE CODE TESTS RESULT OUT OF REFERENCE UNITS RANGE LAB L501.080 70-110 mg/dL High BEDSIDE GLU 124 Result Comment: MANAGEMENT OF PATIENT CARE PER NURSING PROTOCOL Performed By: #### L501.080 #### [facility] Point of Care [address] [place] [address] BEDSIDE GLUCOSE Collected: 09/21/2017 Status: F Source: [place] 7:30 AM [facility] REPOSITORY TYPE CODE TESTS RESULT OUT OF RANGE REFERENCE UNITS LAB L501.080 70-110 mg/dL Normal BEDSIDE GLU 109 Result Comment: MANAGEMENT OF PATIENT CARE PER NURSING PROTOCOL Performed By: #### L501.080 #### [facility] Point of Care [address] [place] [address] BEDSIDE GLUCOSE Collected: 09/20/2017 Status: F Source: [place] 6:31 AM [facility] REPOSITORY TYPE CODE TESTS RESULT OUT OF RANGE REFERENCE UNITS LAB L501.080 70-110 mg/dL Normal BEDSIDE GLU 110 Result Comment: MANAGEMENT OF PATIENT CARE PER NURSING PROTOCOL Performed By: #### L501.080 #### [facility] Point of Care [address] [place] [address] BASIC METABOLIC Collected: 09/20/2017 Status: F Source: [place]ANNE PROFILE (BMP) 5:10 AM [facility] REPOSITORY TYPE CODE TESTS RESULT OUT OF RANGE REFERENCE UNITS LAB L501.0100 74-106 mg/dL Normal GLU 96 Result Comment: Please note revised GLUCOSE reference range effective 2017. LAB L501.1000 7-18 mg/dL Normal BUN 11 LAB L501.1100 0.55-1.02 mg/dL Normal CREAT,SERUM 0.57 Result Comment: The validity of the calculated GFR AND GFRAA in patients over 70 years has not been determined. Clinical correlation is essential. LAB L501.1110 >60 mL/min Normal EST GFR 112 Result Comment: Non- GFR Calc LAB L501.1115 >60 mL/min Normal EST GFR - AA 135 Result Comment: GFR Calc LAB L501.1255 ml/min Normal Estimated CRCL 38.94 LAB L501.1300 10-20 RATIO Normal BUN/CRE 19.4 LAB L501.2200 8.5-10 mg/dL Low .1 CA 8.3 LAB L501.5300 136-14 mmol/L Normal 5 NA 141 LAB L501.5600 3.5-5. mmol/L Normal 1 K 3.5 LAB L501.5900 98-107 mmol/L Normal CL 103 LAB L501.6100 21.0-3 mmol/L Normal 2.0 CO2 31.0 LAB L501.6200 5-15 Normal GAP 7 Performed By: #### L500.2500 #### [facility] [address] [place], [address] CBC W/DIFF, AUTOMATED Collected: 09/20/2017 Status: C Source: [place] 5:10 AM [facility] REPOSITORY TYPE CODE TESTS RESULT OUT OF RANGE REFERENCE UNITS LAB L100.1000 4.4-11.0 K/mm3 Normal WBC 9.0 LAB L100.1200 4.2-5.4 M/mm3 Low RBC 3.25 LAB L100.1300 12.0-15.0 g/dl Low HGB 9.4 LAB L100.1400 37-47 % Low HCT 29.9 LAB L100.1500 81-99 fL Normal MCV 92.0 LAB L100.1600 27.0-32.0 pg Normal MCH 28.9 LAB L100.1700 32-36 g/gl Low MCHC 31.4 LAB L100.1810 11.6-14.6 % High RDW CV 15.1 LAB L100.1820 35.1-43.9 fl High RDW SD 50.0 LAB L100.1900 150-450 K/mm3 Normal PLT 216 LAB L100.2000 6.2-12.0 fl Normal MPV 9.6 LAB L100.3100 MANUAL DIFF Normal CELLS COUNTED 100 LAB L100.3200 47-70 % 60 Normal SEGS LAB L100.3300 0-5 % 1 Normal BAND LAB L100.3400 0-1 % 1 Normal META LAB L100.3800 19-41 % 22 Normal LYMPH LAB L100.3900 0-10 % 9 Normal MONOCYTE LAB L100.4000 0-5 % High 7 EOS LAB L100.5500 ADEQ Normal PLT EST ADEQUATE LAB L100.7000 NORM C AND C NORMAL N Normal RED CELL MORPH CYTIC LAB L100.2620 2.0-7.7 X10 3/uL Normal Absolute Neut 5.5 LAB L100.2720 0.83-4.51 X10 3/ul Normal Absolute Lymph 1.98 LAB L100.5650 Normal PLT MORPH COMMENT Result Comment: FEW LARGE PLATELETS LAB L100.7500 POLYCHROMASIA 1+ Normal LAB L100.9900 PATH REV Normal Reviewed Result Comment: Neutrophilic left shift. Normocytic anemia. Clinical correlation necessary. Yamil Vargas M.D. 10/02/17 Pathologist comment added AMENDED REPORT 10/02/17 1051 PATH REV previously reported as: August elana Performed By: #### L100.0100 #### [facility] [address] [facility] [place], [address] HISTORY AND PHYSICAL Observed: 09/19/2017 Status: F Source: [place] EXAM 9:45 PM [facility] REPOSITORY [facility] Medical Records Department [facility] [place] [address] History and Physical 09/19/172123 MR#: [id number] Acct: [id number] Name: TRESADON Barry Rep #: [id number] : 1945 71 From: Mello Brantley MD PCP: Fadumo Mandel DO Status: ADM IN Location: [facility] [id number] Problem List (1) Lumbar spinal stenosis Status: Chronic (2) Muscle spasm Status: Chronic (3) Constipation Status: Chronic (4) Depression Status: Chronic (5) Neuropathic pain Status: Chronic (6) Rheumatoid arthritis Status: Chronic (7) Insomnia Status: Chronic (8) Diabetes mellitus Status: Chronic (9) Nausea Status: Chronic (10) GERD (gastroesophageal reflux disease) Status: Chronic (11) Restless leg syndrome Status: Acute (12) Hypertension Status: Chronic Qualifiers: (13) Sleep apnea Status: Chronic History of Present Illness Date of Admission: 09/19/17 Chief Complaint: Here for rehabilitation, strengthening, prior to discharge home with family. The patient is a 71 year old Female with below past medical history underwent T10 to pelvis fusion surgery with Dr. Rosas on 09/13/2017 at [facility]. She has drain in place, she wears LSO brace when she is out of bed. She walks with walker, and gait belt. 09/19/2017 Admit to TCU for rehabilitation, strengthening, prior to discharge home with family. Past Medical History Past Medical History (Chronic Problems): Chronic Problems Morbid obesity (Chronic) Fibromyalgia (Chronic) IBS (irritable bowel syndrome) (Chronic) Lumbar spinal stenosis (Chronic) Muscle spasm (Chronic) Constipation (Chronic) Depression (Chronic) Neuropathic pain (Chronic) Rheumatoid arthritis (Chronic) Insomnia (Chronic) Diabetes mellitus (Chronic) Nausea (Chronic) GERD (gastroesophageal reflux disease) (Chronic) Sleep apnea (Chronic) Obstructive sleep apnea (Chronic) Peripheral neuropathy (Chronic) Hypothyroidism (Chronic) Chronic low back pain (Chronic) Psoriatic arthritis (Chronic) Type 2 diabetes mellitus (Chronic) Hypertension (Chronic) Allergies No Known Allergies Allergy (Verified 07/30/17 09:00) Home Medications: Ambulatory Orders Medication Instructions Recorded Surgical History: cholecystectomy, hysterectomy, total knee arthroplasty - BL TKR., - - R Reverse Shoulder replacement. 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 Smoking Status: Never smoker Tobacco Use: Non-smoker Alcohol: None Drugs: None - *Family History Maternal History Items: No pertinent history Paternal History Items: Diabetes, Heart Disease Review of Systems Constitutional: Denies: Chills, Fever, Weight Change HEENT: Denies: Head Aches, Sinus Congestion, Sinus Drainage Cardiovascular: Denies: Chest Pain, Palpitations Respiratory: Denies: Cough, Shortness of breath at rest, Sputum production Gastrointestinal: Reports: Constipation - No BM for 8 days.. Denies: Abdominal Pain, Nausea, Vomiting Genitourinary: Denies: Dysuria Musculoskeletal: Denies: Joint Pain, Joint Tenderness Skin: Denies: Rash, Wounds Neurological: Denies: Numbness, Tingling, Focal weakness Psychiatric: Denies: Anxiety, Depression, Homicidal Ideations, Suicidal Ideations Hematologic/ Lymphatic: Denies: Easy Bruising, Easy Bleeding VTE Information - Inpt Only VTE Present on Admission: No VTE Mechan Device Prophylaxis: Knee High RACHANA Hose VTE Pharm Prophylaxis ordered?: Yes Patient Problems: Active and Suspected Problems Restless leg syndrome (Acute) - Physical Exam General: Alert, Oriented x3, Cooperative HEENT: Atraumatic, PERRLA, EOMI, Normocephalic Neck: Supple, No JVD, Negative Carotid Bruits Lungs: Clear to auscultation, Normal air movement Cardiovascular: Regular rate, No murmurs Abdomen: Bowel Sounds Present, Soft, Non Tender Extremities: No edema, Capillary Refill Less than 3 Seconds Skin: No rashes, No breakdown Musculoskeletal: No Tenderness to Palpation of Joints or Extremities, - - Drain from back incision. Neurological: Cranial nerves II-XII grossly intact Psych/Mental Status: Normal Affect, Appropriate Vital Signs Temp Pulse Resp BP Pulse Ox 97.6 F L 66 94 H 127/75 H 20 09/19/17 16:59 09/19/17 16:59 09/19/17 16:59 09/19/17 16:59 09/19/17 16:59 Oxygen Delivery Method Room Air Weight: 132.08 kg Body Mass Index (BMI) 55.0 Finger Stick Blood Glucose 164 Intake and Output for Last 24 Hours Intake Total 240 / 240 Balance 240 / 240 Assessment/Plan All Active Problems Restless leg syndrome (Acute) Acute exacerbation of chronic low back pain (Acute) 71 year old female with below past medical history hospitalized for lumbar spinal surgery 09/13/[address] Aby Rosas, admitted to TCU with debility, here for rehabilitation, strengthening, prior to discharge home with family. * Debility - PT/OT. * Pain - Tylenol 1000MG Q8H PRN mild pain, Oxycontin 20MG BID, Oxycodone 5-10MG Q6H PRN severe pain thru 10/03/2017. * Bowel - Miralax 17GM daily, Senna/colace 2 tablets BID, Dulcolax 10MG PO daily PRN, Magnesium Citrate 300ML PO x 1 dose, if no result, then Golytely 2 Liters PO x 1 dose, if no result, Soap suds enema. * Pneumonia vaccination - Administer Prevnar 13 and/or Pneumovax 23 as necessary. * DVT prophylaxis - Lovenox 40M SC daily. * Hypertension - Atenolol 50MG daily. * Calcium deficiency - Oscal D BID. * Incision cellulitis - Keflex 1000MG Q12H thru 10/03/2017. * Muscle spasm - Flexeril 10MG TID PRN. * Depression - Duloxetine 60MG daily. * Neuropathic pain - Gabapentin 400MG 4x/day. * Rheumatoid Arthritis - Plaquenil 200MG BID. * Hypothyroidism - Levothyroxine 50MCG daily. * Insomnia - Melatonin 3MG QHS PRN. * Skin irritation - Calmoseptine BID bilateral buttocks. * Diabetes Mellitus II - Metformin XR 500MG daily. * Nutrition - MVI daily. * Tinea Corporis - Nystatin powder BID abdominal folds. * Nausea - Zofran 4MG Q6H PRN. * GERD - Pantoprazole 20MG BID. * Restless Legs Syndrome - Mirapex 1MG QHS PRN. 09/19/176 <Electronically signed by Mello Brantley MD> Date Mello Brantley MD Cosigner Signature: Date (if applicable) CC: Fadumo Mandel DO; Mello Brantley MD Signed XR SPINE SCOLIOSIS 2/3 Observed: 09/19/2017 Status: F Source: [place] [facility] 2:08 PM [facility] REPOSITORY EXAM: XR SPINE SCOLIOSIS 2/3 VIEWS, 09/19/2017 13:08 PM COMPARISON: CT thoracolumbar spine 08/29/2017 CLINICAL INDICATIONS: Supine XR out of brace RELEVANT CLINICAL HISTORY: FINDINGS: 5 images obtained. Thoracolumbar spine: 12 thoracic and 5 lumbar-type vertebral bodies are identified with interval posterior decompression and instrumented fusion. Intact hardware extends from T10 through the sacroiliac joints multilevel degenerative disc disease is present. Pelvic Tilt: There is no pelvic tilt. IMPRESSION: Intact posterior fusion hardware extending from T10 through the sacroiliac joints. *POC GLUCOSE BATTERY Collected: 09/19/2017 Status: F Source: [facility] 11:51 AM [facility] REPOSITORY TYPE CODE TESTS RESULT OUT OF REFERENCE UNITS RANGE LAB GLUP 70-99 mg/dL High Glucose (poc 117 device) Result Comment: No BRAVE per RN: PATIENT TYPE LAB PCSTYP *POC Capillary SAMPLE TYPE Blood *POC GLUCOSE BATTERY Collected: 09/19/2017 Status: F Source: [facility] 7:44 AM [facility] REPOSITORY TYPE CODE TESTS RESULT OUT OF REFERENCE UNITS RANGE LAB GLUP 70-99 mg/dL Glucose (poc 89 device) Result Comment: No BRAVE per RN: PATIENT TYPE LAB PCSTYP *POC Capillary SAMPLE TYPE Blood *POC GLUCOSE BATTERY Collected: 09/18/2017 Status: F Source: [facility] 8:33 PM [facility] REPOSITORY TYPE CODE TESTS RESULT OUT OF REFERENCE UNITS RANGE LAB GLUP 70-99 mg/dL High Glucose (poc 110 device) Result Comment: No BRAVE per RN: PATIENT TYPE LAB PCSTYP *POC Capillary SAMPLE TYPE Blood *POC GLUCOSE BATTERY Collected: 09/18/2017 Status: F Source: [facility] 7:51 PM [facility] REPOSITORY TYPE CODE TESTS RESULT OUT OF REFERENCE UNITS RANGE LAB GLUP 70-99 mg/dL High Glucose (poc 118 device) Result Comment: No BRAVE per RN: PATIENT TYPE LAB PCSTYP *POC Capillary SAMPLE TYPE Blood *POC GLUCOSE BATTERY Collected: 09/18/2017 Status: F Source: [facility] 3:48 PM [facility] REPOSITORY TYPE CODE TESTS RESULT OUT OF REFERENCE UNITS RANGE LAB GLUP 70-99 mg/dL High Glucose (poc 100 device) Result Comment: No BRAVE per RN: PATIENT TYPE LAB PCSTYP *POC Capillary SAMPLE TYPE Blood *POC GLUCOSE BATTERY Collected: 09/18/2017 Status: F Source: [facility] 11:29 AM [facility] REPOSITORY TYPE CODE TESTS RESULT OUT OF REFERENCE UNITS RANGE LAB GLUP 70-99 mg/dL High Glucose (poc 103 device) Result Comment: No BRAVE per RN: PATIENT TYPE LAB PCSTYP *POC Capillary SAMPLE TYPE Blood *POC GLUCOSE BATTERY Collected: 09/18/2017 Status: F Source: [facility] 7:29 AM [facility] REPOSITORY TYPE CODE TESTS RESULT OUT OF REFERENCE UNITS RANGE LAB GLUP 70-99 mg/dL Glucose (poc 85 device) Result Comment: No BRAVE per RN: PATIENT TYPE LAB PCSTYP *POC Capillary SAMPLE TYPE Blood CBC,PLATELET,DIFFERENTIAL - CCL Collected: Status: F Source: [facility] 09/18/2017 2:59 AM [facility] REPOSITORY TYPE CODE TESTS RESULT OUT OF REFERENCE UNITS RANGE LAB WBC 3.98-10.04 K/uL WBC Count 8.41 LAB RBC 3.93-5.22 M/uL RBC Count 3.54 Low LAB HGB 11.2-15.7 g/dL Hemoglobin 10.6 Low LAB HCT 34.1-44.9 % Hematocrit 32.4 Low LAB MCV 79.4-94.8 fL Mean Cell 91.5 Volume LAB MCH 25.6-32.2 pg Mean Cell 29.9 Hgb LAB MCHC 32.2-35.5 g/dL Mean Cell 32.7 Hgb Conc LAB RDW 11.7-14.4 % RBC 14.3 Distribution LAB PLT 182-369 K/uL Platelet 181 Low Count LAB MPV 9.4-12.3 fL Mean 10.3 Platelet Volume LAB NRBC 0.0-0.2 /100 WBC NUCLEATED 0.5 High RBC LAB DTYPE Electronic DIFFERENTIAL TYPE Differential LAB IGRE % IMMATURE 2.3 GRANS % LAB SEGS % NEUTROPHIL 70.5 SEGMENTED LAB LYM % LYMPHOCYTE 13.0 % LAB MON % MONOCYTE % 8.0 LAB EOS % EOSINOPHIL 5.5 % LAB BASO % BASOPHIL % 0.7 LAB IGABS 0.00-0.03 K/uL IMMATURE 0.19 High GRANS ABSOLUTE LAB SBANS 1.56-6.13 K/uL SEGS + 5.94 Bands,Absolute LAB ALYM 1.18-3.74 K/uL Abs Lymph 1.09 Low LAB AMONO 0.24-0.86 K/uL Abs Converse 0.67 LAB AEOS 0.04-0.36 K/uL Abs Eos 0.46 High LAB ABASO 0.01-0.08 K/uL Abs Baso 0.06 Performed By: #### CBCDFC #### [facility] [address] [place], [place] [address] [place] [address] [address] [place] [address] *POC GLUCOSE BATTERY Collected: 09/17/2017 Status: F Source: [facility] 7:20 PM [facility] REPOSITORY TYPE CODE TESTS RESULT OUT OF REFERENCE UNITS RANGE LAB GLUP 70-99 mg/dL High Glucose (poc 104 device) Result Comment: No BRAVE per RN: PATIENT TYPE LAB PCSTYP *POC Capillary SAMPLE TYPE Blood *POC GLUCOSE BATTERY Collected: 09/17/2017 Status: F Source: [facility] 4:00 PM [facility] REPOSITORY TYPE CODE TESTS RESULT OUT OF REFERENCE UNITS RANGE LAB GLUP 70-99 mg/dL High Glucose (poc 137 device) Result Comment: No BRAVE per RN: PATIENT TYPE LAB PCSTYP *POC Capillary SAMPLE TYPE Blood *POC GLUCOSE BATTERY Collected: 09/17/2017 Status: F Source: [facility] 11:27 AM [facility] REPOSITORY TYPE CODE TESTS RESULT OUT OF REFERENCE UNITS RANGE LAB GLUP 70-99 mg/dL High Glucose (poc 105 device) Result Comment: No BRAVE per RN: PATIENT TYPE LAB PCSTYP *POC Capillary SAMPLE TYPE Blood *POC GLUCOSE BATTERY Collected: 09/17/2017 Status: F Source: [facility] 8:21 AM [facility] REPOSITORY TYPE CODE TESTS RESULT OUT OF REFERENCE UNITS RANGE LAB GLUP 70-99 mg/dL Glucose (poc 99 device) Result Comment: No BRAVE per RN: PATIENT TYPE LAB PCSTYP *POC Capillary SAMPLE TYPE Blood CBC,PLATELET,DIFFERENTIAL - CCL Collected: Status: F Source: [facility] 09/17/2017 1:59 AM [facility] REPOSITORY TYPE CODE TESTS RESULT OUT OF REFERENCE UNITS RANGE LAB WBC 3.98-10.04 K/uL WBC Count 8.50 LAB RBC 3.93-5.22 M/uL RBC Count 3.11 Low LAB HGB 11.2-15.7 g/dL Hemoglobin 9.2 Low LAB HCT 34.1-44.9 % Hematocrit 27.9 Low LAB MCV 79.4-94.8 fL Mean Cell 89.7 Volume LAB MCH 25.6-32.2 pg Mean Cell 29.6 Hgb LAB MCHC 32.2-35.5 g/dL Mean Cell 33.0 Hgb Conc LAB RDW 11.7-14.4 % RBC 14.1 Distribution LAB PLT 182-369 K/uL Platelet 157 Low Count LAB MPV 9.4-12.3 fL Mean 10.2 Platelet Volume LAB NRBC 0.0-0.2 /100 WBC NUCLEATED 0.0 RBC LAB DTYPE Electronic DIFFERENTIAL TYPE Differential LAB IGRE % IMMATURE 1.8 GRANS % LAB SEGS % NEUTROPHIL 72.8 SEGMENTED LAB LYM % LYMPHOCYTE 14.1 % LAB MON % MONOCYTE % 6.6 LAB EOS % EOSINOPHIL 4.0 % LAB BASO % BASOPHIL % 0.7 LAB IGABS 0.00-0.03 K/uL IMMATURE 0.15 High GRANS ABSOLUTE LAB SBANS 1.56-6.13 K/uL SEGS + 6.19 High Bands,Absolute LAB ALYM 1.18-3.74 K/uL Abs Lymph 1.20 LAB AMONO 0.24-0.86 K/uL Abs Converse 0.56 LAB AEOS 0.04-0.36 K/uL Abs Eos 0.34 LAB ABASO 0.01-0.08 K/uL Abs Baso 0.06 Performed By: #### CBCDFC #### [facility] [address] [place] [address] [address] [place] [address] *POC GLUCOSE BATTERY Collected: 09/16/2017 Status: F Source: [facility] 3:47 PM [facility] REPOSITORY TYPE CODE TESTS RESULT OUT OF REFERENCE UNITS RANGE LAB GLUP 70-99 mg/dL High Glucose (poc 115 device) Result Comment: No BRAVE per RN: PATIENT TYPE LAB PCSTYP *POC Capillary SAMPLE TYPE Blood *POC GLUCOSE BATTERY Collected: 09/16/2017 Status: F Source: [facility] 12:34 PM [facility] REPOSITORY TYPE CODE TESTS RESULT OUT OF REFERENCE UNITS RANGE LAB GLUP 70-99 mg/dL High Glucose (poc 110 device) Result Comment: No BRAVE per RN: PATIENT TYPE LAB PCSTYP *POC Capillary SAMPLE TYPE Blood *POC GLUCOSE BATTERY Collected: 09/16/2017 Status: F Source: [facility] 5:34 AM [facility] REPOSITORY TYPE CODE TESTS RESULT OUT OF REFERENCE UNITS RANGE LAB GLUP 70-99 mg/dL Glucose (poc 98 device) Result Comment: No BRAVE per RN: PATIENT TYPE LAB PCSTYP *POC Capillary SAMPLE TYPE Blood CBC,PLATELET,DIFFERENTIAL - CCL Collected: Status: F Source: [facility] 09/16/2017 4:38 AM [facility] REPOSITORY TYPE CODE TESTS RESULT OUT OF REFERENCE UNITS RANGE LAB WBC 3.98-10.04 K/uL WBC Count 9.74 LAB RBC 3.93-5.22 M/uL RBC Count 3.04 Low LAB HGB 11.2-15.7 g/dL Hemoglobin 9.0 Low LAB HCT 34.1-44.9 % Hematocrit 28.0 Low LAB MCV 79.4-94.8 fL Mean Cell 92.1 Volume LAB MCH 25.6-32.2 pg Mean Cell 29.6 Hgb LAB MCHC 32.2-35.5 g/dL Mean Cell 32.1 Low Hgb Conc LAB RDW 11.7-14.4 % RBC 14.1 Distribution LAB PLT 182-369 K/uL Platelet 133 Low Count LAB MPV 9.4-12.3 fL Mean 10.2 Platelet Volume LAB NRBC 0.0-0.2 /100 WBC NUCLEATED 0.0 RBC LAB DTYPE Electronic DIFFERENTIAL TYPE Differential LAB IGRE % IMMATURE 0.8 GRANS % LAB SEGS % NEUTROPHIL 77.2 SEGMENTED LAB LYM % LYMPHOCYTE 12.2 % LAB MON % MONOCYTE % 6.0 LAB EOS % EOSINOPHIL 3.2 % LAB BASO % BASOPHIL % 0.6 LAB IGABS 0.00-0.03 K/uL IMMATURE 0.08 High GRANS ABSOLUTE LAB SBANS 1.56-6.13 K/uL SEGS + 7.52 High Bands,Absolute LAB ALYM 1.18-3.74 K/uL Abs Lymph 1.19 LAB AMONO 0.24-0.86 K/uL Abs Converse 0.58 LAB AEOS 0.04-0.36 K/uL Abs Eos 0.31 LAB ABASO 0.01-0.08 K/uL Abs Baso 0.06 Performed By: #### CBCDFC #### [facility] [address] [place] [address] [address] [place] [address] *POC GLUCOSE BATTERY Collected: 09/16/2017 Status: F Source: [facility] 1:11 AM [facility] REPOSITORY TYPE CODE TESTS RESULT OUT OF REFERENCE UNITS RANGE LAB GLUP 70-99 mg/dL High Glucose (poc 102 device) Result Comment: No BRAVE per RN: PATIENT TYPE LAB PCSTYP *POC Capillary SAMPLE TYPE Blood CBC,PLATELET,DIFFERENTIAL - CCL Collected: Status: X Source: [facility] 09/16/2017 12:15 [facility] REPOSITORY TYPE CODE TESTS RESULT OUT OF REFERENCE UNITS RANGE LAB CBCDFC This CBC,PLATELET result has ,DIFFERENTIA been L - CCL cancelled. Performed By: #### CBCDFC #### [facility] (DEFAULT) [address] [place] [address] #### C7C, IPB, MGO #### [facility] [address] [place] [address] [place] [address] CHM7,CA Collected: 09/16/2017 Status: F Source: [facility] 12:15 [facility] REPOSITORY TYPE CODE TESTS RESULT OUT OF REFERENCE UNITS RANGE LAB BUN 7-22 mg/dL BUN 10 LAB NA 133-143 mmol/L Sodium 134 LAB K 3.5-5.0 mmol/L Potassium 4.7 Result Comment: SLIGHTLY HEMOLYZED LAB CL 98-108 mmol/L Chloride 103 LAB CO2 22-30 mmol/L Carbon Dioxide 24 LAB GLUC 70-99 mg/dL Glucose 99 LAB CREA 0.50-1.20 mg/dL Creatinine Low 0.46 LAB GAP 7-17 mmol/L Anion Gap 12 LAB BC BUN/CREA Ratio 22 LAB CA 8.6-10.5 mg/dL Calcium Low 8.1 LAB OSMC 278-305 mOsm/kg Osmolality (Calc) 282 LAB GFR >60 mL/min/1.73sq M Est GFR,non >60 LAB GFRA >60 mL/min/1.73sq M Est GFR, >60 Performed By: #### CBCDFC #### [facility] (DEFAULT) [address] [place] [address] #### C7C, IPB, MGO #### [facility] [address] [place] [address] [facility] [address] [place], [place] [address] INORGANIC PHOSPHATE Collected: 09/16/2017 Status: F Source: [facility] 12:15 AM [facility] REPOSITORY TYPE CODE TESTS RESULT OUT OF REFERENCE UNITS RANGE LAB IP 2.2-4.6 mg/dL Low Inorg Phosphate 2.0 Result Comment: SLIGHTLY HEMOLYZED Performed By: #### CBCDFC #### [facility] (DEFAULT) [address] [place] [address] #### C7C, IPB, MGO #### [facility] [address] [place] [id number] [facility] [address] [place] [address] 33868 MAGNESIUM Collected: 09/16/2017 Status: F Source: [facility] 12:15 AM [facility] REPOSITORY TYPE CODE TESTS RESULT OUT OF REFERENCE UNITS RANGE LAB MG 1.6-2.6 mg/dL Magnesium 2.1 Result Comment: SLIGHTLY HEMOLYZED Performed By: #### CBCDFC #### [facility] (DEFAULT) [address] [place] [address] #### C7C, IPB, MGO #### [facility] [address] [place] [address] [facility] [address] [place] [address] 9[address] *POC GLUCOSE BATTERY Collected: 09/15/2017 Status: F Source: [facility] 6:00 PM [facility] REPOSITORY TYPE CODE TESTS RESULT OUT OF REFERENCE UNITS RANGE LAB GLUP 70-99 mg/dL High Glucose (poc 108 device) Result Comment: No BRAVE per RN: PATIENT TYPE LAB PCSTYP *POC Capillary SAMPLE TYPE Blood URINALYSIS REFLEX Collected: 09/15/2017 Status: F Source: [facility] CULTURE 3:31 PM [facility] REPOSITORY TYPE CODE TESTS RESULT OUT OF RANGE REFERENCE UNITS LAB CHEESE MAKER Clear Appearance Urine Clear LAB SPGR 1.001-1.035 Specific [place] urine 1.021 LAB UGL Negative mg/dL Glucose Urine Negative LAB UKET Negative Ketones Abnormal Urine Small LAB UBLD Negative Blood Urine Negative LAB UPH 5.0-7.0 pH Urine 5.5 LAB UPR Negative mg/dL Protein Urine Negative LAB UNTR Negative Nitrites Urine Negative LAB ULEU Negative Leukocyte Esterase Negative LAB COLR Yellow Color Yellow LAB UURO <2.0 EU/dL Urobilinogen 0.2 urine LAB UWBC 0-5 /HPF WBC Urine 0-5 LAB URBC 0-2 /HPF RBC Urine 0-2 LAB BACT Absent Bacteria Absent LAB UCOM COMMENT URINE Clumped WBCs LAB EPIS /HPF Squamous Epithelial None Performed By: #### URIN1 #### [facility] [address] [place], [place] [id number] [place] [address] [address] [place] [address] *POC GLUCOSE BATTERY Collected: 09/15/2017 Status: F Source: [facility] 12:00 PM [facility] REPOSITORY TYPE CODE TESTS RESULT OUT OF REFERENCE UNITS RANGE LAB GLUP 70-99 mg/dL High Glucose (poc 112 device) Result Comment: No BRAVE per RN: PATIENT TYPE LAB PCSTYP *POC Capillary SAMPLE TYPE Blood *POC GLUCOSE BATTERY Collected: 09/15/2017 Status: F Source: [facility] 6:24 AM [facility] REPOSITORY TYPE CODE TESTS RESULT OUT OF REFERENCE UNITS RANGE LAB GLUP 70-99 mg/dL Glucose (poc 99 device) Result Comment: No BRAVE per RN: PATIENT TYPE LAB PCSTYP *POC Capillary SAMPLE TYPE Blood CBC,PLATELET,DIFFERENTIAL - CCL Collected: Status: F Source: [facility] 09/15/2017 2:04 AM [facility] REPOSITORY TYPE CODE TESTS RESULT OUT OF REFERENCE UNITS RANGE LAB WBC 3.98-10.04 K/uL WBC Count 11.55 High LAB RBC 3.93-5.22 M/uL RBC Count 3.32 Low LAB HGB 11.2-15.7 g/dL Hemoglobin 9.7 Low LAB HCT 34.1-44.9 % Hematocrit 30.6 Low LAB MCV 79.4-94.8 fL Mean Cell 92.2 Volume LAB MCH 25.6-32.2 pg Mean Cell 29.2 Hgb LAB MCHC 32.2-35.5 g/dL Mean Cell 31.7 Low Hgb Conc LAB RDW 11.7-14.4 % RBC 14.4 Distribution LAB PLT 182-369 K/uL Platelet 129 Low Count LAB MPV 9.4-12.3 fL Mean 9.8 Platelet Volume LAB NRBC 0.0-0.2 /100 WBC NUCLEATED 0.0 RBC LAB DTYPE Electronic DIFFERENTIAL TYPE Differential LAB IGRE % IMMATURE 1.0 GRANS % LAB SEGS % NEUTROPHIL 81.5 SEGMENTED LAB LYM % LYMPHOCYTE 8.5 % LAB MON % MONOCYTE % 6.4 LAB EOS % EOSINOPHIL 2.1 % LAB BASO % BASOPHIL % 0.5 LAB IGABS 0.00-0.03 K/uL IMMATURE 0.12 High GRANS ABSOLUTE LAB SBANS 1.56-6.13 K/uL SEGS + 9.41 High Bands,Absolute LAB ALYM 1.18-3.74 K/uL Abs Lymph 0.98 Low LAB AMONO 0.24-0.86 K/uL Abs Converse 0.74 LAB AEOS 0.04-0.36 K/uL Abs Eos 0.24 LAB ABASO 0.01-0.08 K/uL Abs Baso 0.06 Performed By: #### ÁNGEL, Sharlene, GENOVEVA, MGO #### [facility] [address] [place] [address] CHM7,CA Collected: 09/15/2017 Status: F Source: [facility] 2:04 [facility] REPOSITORY TYPE CODE TESTS RESULT OUT OF REFERENCE UNITS RANGE LAB BUN 7-22 mg/dL BUN 11 LAB NA 133-143 mmol/L Sodium 136 LAB K 3.5-5.0 mmol/L Potassium 4.1 LAB CL 98-108 mmol/L Chloride 103 LAB CO2 22-30 mmol/L Carbon Dioxide 28 LAB GLUC 70-99 mg/dL Glucose High 109 LAB CREA 0.50-1.20 mg/dL Creatinine 0.57 LAB GAP 7-17 mmol/L Anion Gap 9 LAB BC BUN/CREA Ratio 19 LAB CA 8.6-10.5 mg/dL Low Calcium 8.4 LAB [facility] 278-305 mOsm/kg Osmolality 285 (Calc) LAB GFR >60 mL/min/1.73 sqM Est GFR,non >60 Marshallese LAB GFRA >60 mL/min/1.73 sqM Est GFR, >60 Performed By: #### CBCDFNery, C7C, IPB, MGO #### [facility] [address] [place] [address] INORGANIC PHOSPHATE Collected: 09/15/2017 Status: F Source: [facility] 2:04 AM [facility] REPOSITORY TYPE CODE TESTS RESULT OUT OF REFERENCE UNITS RANGE LAB IP 2.2-4.6 mg/dL Low Inorg Phosphate 2.0 Performed By: #### CBCDFC, C7C, IPB, MGO #### [facility] [address] [place] [address] [place] [address] [place] [address] MAGNESIUM Collected: 09/15/2017 Status: F Source: [facility] 2:04 AM [facility] REPOSITORY TYPE CODE TESTS RESULT OUT OF REFERENCE UNITS RANGE LAB MG 1.6-2.6 mg/dL Magnesium 2.1 Performed By: #### CBCDFC, C7C, IPB, MGO #### [facility] [address] [place] [address] [address] [place] [address] *POC GLUCOSE BATTERY Collected: 09/15/2017 Status: F Source: [facility] 1:00 AM [facility] REPOSITORY TYPE CODE TESTS RESULT OUT OF REFERENCE UNITS RANGE LAB GLUP 70-99 mg/dL High Glucose (poc 119 device) Result Comment: No BRAVE per RN: PATIENT TYPE LAB PCSTYP *POC Capillary SAMPLE TYPE Blood *POC GLUCOSE BATTERY Collected: 09/14/2017 Status: F Source: [facility] 5:17 PM [facility] REPOSITORY TYPE CODE TESTS RESULT OUT OF REFERENCE UNITS RANGE LAB GLUP 70-99 mg/dL High Glucose (poc 121 device) Result Comment: No BRAVE per RN: PATIENT TYPE LAB PCSTYP *POC Capillary SAMPLE TYPE Blood *POC GLUCOSE BATTERY Collected: 09/14/2017 Status: F Source: [facility] 12:28 PM [facility] REPOSITORY TYPE CODE TESTS RESULT OUT OF REFERENCE UNITS RANGE LAB GLUP 70-99 mg/dL High Glucose (poc 119 device) Result Comment: Notified RNread back No BRAVE per RN: PATIENT TYPE LAB PCSTYP *POC Capillary SAMPLE TYPE Blood TROPONIN I Collected: 09/14/2017 Status: F Source: [facility] 6:03 AM [facility] REPOSITORY TYPE CODE TESTS RESULT OUT OF REFERENCE UNITS RANGE LAB TROP <0.11 ng/mL Troponin I 0.04 Performed By: #### TROP #### [facility] [address] [place] [address] *POC GLUCOSE BATTERY Collected: 09/14/2017 Status: F Source: [facility] 6:01 AM [facility] REPOSITORY TYPE CODE TESTS RESULT OUT OF REFERENCE UNITS RANGE LAB GLUP 70-99 mg/dL High Glucose (poc 126 device) Result Comment: No BRAVE per RN: PATIENT TYPE LAB PCSTYP *POC Capillary SAMPLE TYPE Blood CBC,PLATELET,DIFFERENTIAL - CCL Collected: Status: F Source: [facility] 09/14/2017 12:04 [facility] REPOSITORY TYPE CODE TESTS RESULT OUT OF REFERENCE UNITS RANGE LAB WBC 3.98-10.04 K/uL WBC Count 15.41 High LAB RBC 3.93-5.22 M/uL RBC Count 3.66 Low LAB HGB 11.2-15.7 g/dL Hemoglobin 10.8 Low LAB HCT 34.1-44.9 % Hematocrit 32.7 Low LAB MCV 79.4-94.8 fL Mean Cell 89.3 Volume LAB MCH 25.6-32.2 pg Mean Cell 29.5 Hgb LAB MCHC 32.2-35.5 g/dL Mean Cell 33.0 Hgb Conc LAB RDW 11.7-14.4 % RBC 14.2 Distribution LAB PLT 182-369 K/uL Platelet 190 Count LAB MPV 9.4-12.3 fL Mean 9.5 Platelet Volume LAB NRBC 0.0-0.2 /100 WBC NUCLEATED 0.0 RBC LAB DTYPE Electronic DIFFERENTIAL TYPE Differential LAB IGRE % IMMATURE 1.2 GRANS % LAB SEGS % NEUTROPHIL 87.9 SEGMENTED LAB LYM % LYMPHOCYTE 5.5 % LAB MON % MONOCYTE % 5.1 LAB EOS % EOSINOPHIL 0.0 % LAB BASO % BASOPHIL % 0.3 LAB IGABS 0.00-0.03 K/uL IMMATURE 0.19 High GRANS ABSOLUTE LAB SBANS 1.56-6.13 K/uL SEGS + 13.55 High Bands,Absolute LAB ALYM 1.18-3.74 K/uL Abs Lymph 0.84 Low LAB AMONO 0.24-0.86 K/uL Abs Converse 0.79 LAB AEOS 0.04-0.36 K/uL Abs Eos <0.04 Low LAB ABASO 0.01-0.08 K/uL Abs Baso 0.04 Performed By: #### CBCDFC, C7C, IPB, MGO, PALB, ICA #### [facility] [address] [place] [id number] [place] [address] [place] [address] CHM7,CA Collected: 09/14/2017 Status: F Source: [facility] 12:04 AM [facility] REPOSITORY TYPE CODE TESTS RESULT OUT OF REFERENCE UNITS RANGE LAB BUN 7-22 mg/dL BUN 12 LAB NA 133-143 mmol/L Sodium 138 LAB K 3.5-5.0 mmol/L Potassium 4.3 LAB CL 98-108 mmol/L Chloride 104 LAB CO2 22-30 mmol/L Carbon Dioxide 27 LAB GLUC 70-99 mg/dL Glucose High 140 LAB CREA 0.50-1.20 mg/dL Creatinine 0.62 LAB GAP 7-17 mmol/L Anion Gap 11 LAB BC BUN/CREA Ratio 19 LAB CA 8.6-10.5 mg/dL Calcium 8.8 LAB [facility] 278-305 mOsm/kg Osmolality 292 (Calc) LAB GFR >60 mL/min/1.73 sqM Est GFR,non >60 Marshallese LAB GFRA >60 mL/min/1.73 sqM Est GFR, >60 Performed By: #### CBCDFC, C7C, IPB, MGO, PALB, ICA #### [facility] [address] [place] [address] INORGANIC PHOSPHATE Collected: 09/14/2017 Status: F Source: [facility] 12:04 [facility] REPOSITORY TYPE CODE TESTS RESULT OUT OF REFERENCE UNITS RANGE LAB IP 2.2-4.6 mg/dL Inorg Phosphate 3.5 Performed By: #### CBCDFC, C7C, IPB, MGO, PALB, ICA #### [facility] [address] [place] [address] [place] [address] MAGNESIUM Collected: 09/14/2017 Status: F Source: [facility] 12:04 [facility] REPOSITORY TYPE CODE TESTS RESULT OUT OF REFERENCE UNITS RANGE LAB MG 1.6-2.6 mg/dL High Magnesium 2.7 Performed By: #### CBCDFC, C7C, IPB, MGO, PALB, ICA #### [facility] [address] [place] [address] [facility] [address] [place] [address] PREALBUMIN Collected: 09/14/2017 Status: F Source: [facility] 12:04 AM [facility] REPOSITORY TYPE CODE TESTS RESULT OUT OF REFERENCE UNITS RANGE LAB PALB 17-34 mg/dL Prealbumin 19 Performed By: #### CBCDFC, C7C, IPB, MGO, PALB, ICA #### [facility] [address] [place] [id number] [place] [address] [address] [place] [address] 39647 IONIZED CALCIUM Collected: 09/14/2017 Status: F Source: [facility] 12:04 AM [facility] REPOSITORY TYPE CODE TESTS RESULT OUT OF REFERENCE UNITS RANGE LAB ICA 4.60-5.30 mg/dL Ionized 4.65 Calcium Performed By: #### CBCDFC, C7C, IPB, MGO, PALB, ICA #### [facility] [address] [place] [address] [address] [place] [address] *POC GLUCOSE BATTERY Collected: 09/13/2017 Status: F Source: [facility] 11:33 PM [facility] REPOSITORY TYPE CODE TESTS RESULT OUT OF REFERENCE UNITS RANGE LAB GLUP 70-99 mg/dL High Glucose (poc 146 device) Result Comment: No BRAVE per RN: PATIENT TYPE LAB PCSTYP *POC Capillary SAMPLE TYPE Blood IONIZED CALCIUM Collected: 09/13/2017 Status: F Source: [facility] 5:57 PM [facility] REPOSITORY TYPE CODE TESTS RESULT OUT OF REFERENCE UNITS RANGE LAB ICA 4.60-5.30 mg/dL Low Ionized 4.31 Calcium Performed By: #### ICA, HEMOGC, PTPTT, CA, CHM7, HFP, IPB, MGO #### [facility] [address] [place] [address] [place] [phone] HEMOGRAM (CBC AND Collected: 09/13/2017 Status: F Source: [facility] PLATELET) 5:57 PM [facility] REPOSITORY TYPE CODE TESTS RESULT OUT OF REFERENCE UNITS RANGE LAB WBC 3.98-10.04 K/uL WBC Count High 12.51 LAB RBC 3.93-5.22 M/uL Low RBC Count 3.71 LAB HGB 11.2-15.7 g/dL Low Hemoglobin 10.6 LAB HCT 34.1-44.9 % Low Hematocrit 33.3 LAB MCV 79.4-94.8 fL Mean Cell Volume 89.8 LAB MCH 25.6-32.2 pg Mean Cell Hgb 28.6 LAB MCHC 32.2-35.5 g/dL Low Mean Cell Hgb Conc 31.8 LAB RDW 11.7-14.4 % RBC Distribution 14.1 LAB PLT 182-369 K/uL Low Platelet Count 165 LAB MPV 9.4-12.3 fL Mean Platelet Volume 9.4 LAB NRBC 0.0-0.2 /100 WBC NUCLEATED RBC 0.0 Performed By: #### ICA, HEMOGC, PTPTT, CA, CHM7, HFP, IPB, MGO #### [facility] [address] [place] [address] [place] [address] [address] [place] [address] PT*PTT Collected: 09/13/2017 Status: F Source: [facility] 5:57 PM [facility] REPOSITORY TYPE CODE TESTS RESULT OUT OF RANGE REFERENCE UNITS LAB PT 11.9-14.2 sec PT 14.1 LAB INR 0.9-1.1 INR 1.1 LAB PTT 24.0-34.3 sec PTT 28.2 Performed By: #### ICA, HEMOGC, PTPTT, CA, CHM7, HFP, IPB, MGO #### [facility] [address] [place] [address] [facility] [address] [place] [address] 77820 CALCIUM Collected: 09/13/2017 Status: F Source: [facility] 5:57 PM [facility] REPOSITORY TYPE CODE TESTS RESULT OUT OF REFERENCE UNITS RANGE LAB CA 8.6-10.5 mg/dL Calcium 8.9 Performed By: #### ICA, HEMOGC, PTPTT, CA, CHM7, HFP, IPB, MGO #### [facility] [address] [place] [address] [facility] [address] [place], [place] [address] CHEM 7 Collected: 09/13/2017 Status: F Source: [facility] 5:57 PM [facility] REPOSITORY TYPE CODE TESTS RESULT OUT OF REFERENCE UNITS RANGE LAB BUN 7-22 mg/dL BUN 12 LAB NA 133-143 mmol/L Sodium 137 LAB K 3.5-5.0 mmol/L Potassium 4.4 LAB CL 98-108 mmol/L Chloride 106 LAB CO2 22-30 mmol/L Carbon Dioxide 22 LAB GLUC 70-99 mg/dL Glucose High 149 LAB CREA 0.50-1.20 mg/dL Creatinine 0.67 LAB GAP 7-17 mmol/L Anion Gap 13 LAB BC BUN/CREA Ratio 18 LAB [facility] 278-305 mOsm/kg Osmolality 291 (Calc) LAB GFR >60 mL/min/1.73 sqM Est GFR,non >60 Marshallese LAB GFRA >60 mL/min/1.73 sqM Est GFR, >60 Performed By: #### ICA, HEMOGC, PTPTT, CA, CHM7, HFP, IPB, MGO #### [facility] [address] [place] [address] [place] [id number] HEPATIC FUNCTION Collected: 09/13/2017 Status: F Source: [facility] PANEL 5:57 PM [facility] REPOSITORY TYPE CODE TESTS RESULT OUT OF REFERENCE UNITS RANGE LAB ALB 3.5-5.0 g/dL Albumin 3.8 LAB BILD <0.3 mg/dL Bilirubin High Direct 0.3 LAB BILT <1.5 mg/dL Bilirubin Total 0.6 LAB ALP 32-126 U/L Alkaline Phosphatase 64 LAB ALT 9-48 U/L ALT High 91 LAB AST 14-40 U/L AST High 76 LAB TP 6.4-8.3 g/dL Low Total Protein 6.0 Performed By: #### ICA, HEMOGC, PTPTT, CA, CHM7, HFP, IPB, MGO #### [facility] [address] [place] [id number] [place] [address] [address] [place] [address] INORGANIC PHOSPHATE Collected: 09/13/2017 Status: F Source: [facility] 5:57 PM [facility] REPOSITORY TYPE CODE TESTS RESULT OUT OF REFERENCE UNITS RANGE LAB IP 2.2-4.6 mg/dL Inorg Phosphate 3.3 Performed By: #### ICA, HEMOGC, PTPTT, CA, CHM7, HFP, IPB, MGO #### [facility] [address] [place] [id number] [place] [address] [place] [address] MAGNESIUM Collected: 09/13/2017 Status: F Source: [facility] 5:57 PM [facility] REPOSITORY TYPE CODE TESTS RESULT OUT OF REFERENCE UNITS RANGE LAB MG 1.6-2.6 mg/dL Magnesium 1.6 Performed By: #### ICA, HEMOGC, PTPTT, CA, CHM7, HFP, IPB, MGO #### [facility] [address] [place] [id number] [place] [address] [place] [address] *POC GLUCOSE BATTERY Collected: 09/13/2017 Status: F Source: [facility] 5:44 PM [facility] REPOSITORY TYPE CODE TESTS RESULT OUT OF REFERENCE UNITS RANGE LAB GLUP 70-99 mg/dL High Glucose (poc 128 device) Result Comment: No BRAVE per RN: PATIENT TYPE LAB PCSTYP *POC Capillary SAMPLE TYPE Blood BLD GAS 9 Collected: 09/13/2017 Status: F Source: [facility] 4:40 PM [facility] REPOSITORY TYPE CODE TESTS RESULT OUT OF REFERENCE UNITS RANGE LAB PH 7.35-7.45 PH 7.40 LAB PCO2 32-48 mm Hg PCO2 38 LAB PO2 83-108 mm Hg PO2 238 High LAB BGHGB 11.2-15.7 g/dL BLD GAS 10.6 Low HGB LAB BGH 34.1-44.9 % BLD GAS 33 Low HCT LAB BASE 0-3.0 mmol/L Base Not Excess applicable LAB BASED 0-3.0 mmol/L Base 1.2 Deficit LAB BGNA 133-143 mmol/L Whole 139 Blood Sodium LAB BGK 3.5-5.0 mmol/L Whole 4.4 Blood Potassium LAB BGICA 4.60-5.30 mg/dL Whole 4.84 Bld Ionized CA LAB BGGLU 70-99 mg/dL WHOLE 150 High BLD GLUC LAB HCO3 22-26 mmol/L 23 Bicarbonate LAB OSAT 94-98 % O2 100 High Saturation LAB SPECBG Specimen type Arterial LAB FIO2 % FIO2 Not applicable Performed By: #### GAS9 #### [facility] [address] [place], [place] [address] *POC GLUCOSE BATTERY Collected: 09/13/2017 Status: F Source: [facility] 3:27 PM [facility] REPOSITORY TYPE CODE TESTS RESULT OUT OF REFERENCE UNITS RANGE LAB GLUP 70-99 mg/dL High Glucose (poc 147 device) Result Comment: No BRAVE per RN: PATIENT TYPE LAB PCSTYP *POC Capillary SAMPLE TYPE Blood BLD GAS 9 Collected: 09/13/2017 Status: F Source: [facility] 2:12 PM [facility] REPOSITORY TYPE CODE TESTS RESULT OUT OF REFERENCE UNITS RANGE LAB PH 7.35-7.45 PH 7.38 LAB PCO2 32-48 mm Hg PCO2 41 LAB PO2 83-108 mm Hg PO2 252 High LAB BGHGB 11.2-15.7 g/dL BLD GAS 11.5 HGB LAB BGH 34.1-44.9 % BLD GAS 35 HCT LAB BASE 0-3.0 mmol/L Base Not Excess applicable LAB BASED 0-3.0 mmol/L Base 1.2 Deficit LAB BGNA 133-143 mmol/L Whole 138 Blood Sodium LAB BGK 3.5-5.0 mmol/L Whole 4.2 Blood Potassium LAB BGICA 4.60-5.30 mg/dL Whole 4.89 Bld Ionized CA LAB BGGLU 70-99 mg/dL WHOLE 147 High BLD GLUC LAB HCO3 22-26 mmol/L 23 Bicarbonate LAB OSAT 94-98 % O2 100 High Saturation LAB SPECBG Specimen type Arterial LAB FIO2 % FIO2 Not applicable Performed By: #### GAS9 #### [facility] [address] [place], [place] [address] [place] [address] [address] [place], [place] [address] BLD GAS 9 Collected: 09/13/2017 Status: F Source: [facility] 12:22 PM [facility] REPOSITORY TYPE CODE TESTS RESULT OUT OF REFERENCE UNITS RANGE LAB PH 7.35-7.45 PH 7.41 LAB PCO2 32-48 mm Hg PCO2 38 LAB PO2 83-108 mm Hg PO2 248 High LAB BGHGB 11.2-15.7 g/dL BLD GAS 11.5 HGB LAB BGH 34.1-44.9 % BLD GAS 36 HCT LAB BASE 0-3.0 mmol/L Base Not Excess applicable LAB BASED 0-3.0 mmol/L Base 0.4 Deficit LAB BGNA 133-143 mmol/L Whole 137 Blood Sodium LAB BGK 3.5-5.0 mmol/L Whole 3.8 Blood Potassium LAB BGICA 4.60-5.30 mg/dL Whole 4.43 Low Bld Ionized CA LAB BGGLU 70-99 mg/dL WHOLE 133 High BLD GLUC LAB HCO3 22-26 mmol/L 24 Bicarbonate LAB OSAT 94-98 % O2 100 High Saturation LAB SPECBG Specimen type Arterial LAB FIO2 % FIO2 Not applicable Performed By: #### GAS9 #### [facility] [place] [address] *POC GLUCOSE BATTERY Collected: 09/13/2017 Status: F Source: [facility] 10:54 AM [facility] REPOSITORY TYPE CODE TESTS RESULT OUT OF REFERENCE UNITS RANGE LAB GLUP 70-99 mg/dL High Glucose (poc 129 device) Result Comment: No BRAVE per RN: PATIENT TYPE LAB PCSTYP *POC Capillary SAMPLE TYPE Blood BLD GAS 9 Collected: 09/13/2017 Status: F Source: [facility] 9:24 AM [facility] REPOSITORY TYPE CODE TESTS RESULT OUT OF REFERENCE UNITS RANGE LAB PH 7.35-7.45 PH 7.49 High LAB PCO2 32-48 mm Hg PCO2 34 LAB PO2 83-108 mm Hg PO2 501 High LAB BGHGB 11.2-15.7 g/dL BLD GAS 13.5 HGB LAB BGH 34.1-44.9 % BLD GAS 41 HCT LAB BASE 0-3.0 mmol/L Base 3.0 Excess LAB BASED 0-3.0 mmol/L Base Not Deficit applicable LAB BGNA 133-143 mmol/L Whole 137 Blood Sodium LAB BGK 3.5-5.0 mmol/L Whole 3.5 Blood Potassium LAB BGICA 4.60-5.30 mg/dL Whole 4.64 Bld Ionized CA LAB BGGLU 70-99 mg/dL WHOLE 113 High BLD GLUC LAB HCO3 22-26 mmol/L 26 Bicarbonate LAB OSAT 94-98 % O2 100 High Saturation LAB SPECBG Specimen type Arterial LAB FIO2 % FIO2 Not applicable Performed By: #### GAS9 #### [facility] [place] [address] Observed: 09/13/2017 Status: F Source: [facility] TRANSFUSE FFP 6:05 AM [facility] REPOSITORY CROSSMATCH EXPIRATION: 09/14/2017 UNIT NUMBER: [id number] BLOOD COMPONENT TYPE: Thawed [id number] STATUS OF UNIT: REL FROM [facility]OC TRANSFUSION STATUS: OK TO TRANSFUSE UNIT NUMBER: [id number] BLOOD COMPONENT TYPE: Thawed [id number] STATUS OF UNIT: REL FROM ALLOC TRANSFUSION STATUS: OK TO TRANSFUSE UNIT NUMBER: [id number] BLOOD COMPONENT TYPE: Thawed [id number] STATUS OF UNIT: REL FROM ALLOC TRANSFUSION STATUS: OK TO TRANSFUSE UNIT NUMBER: [id number] BLOOD COMPONENT TYPE: Thawed [id number] STATUS OF UNIT: REL FROM ALLOC TRANSFUSION STATUS: OK TO TRANSFUSE UNIT NUMBER: [id number] BLOOD COMPONENT TYPE: Thawed [id number] STATUS OF UNIT: REL FROM ALLOC TRANSFUSION STATUS: OK TO TRANSFUSE UNIT NUMBER: [id number] BLOOD COMPONENT TYPE: Thawed [id number] STATUS OF UNIT: REL FROM ALLOC TRANSFUSION STATUS: OK TO TRANSFUSE Performed By: #### TFFP #### [facility] [place] [address] *POC GLUCOSE BATTERY Collected: 09/13/2017 Status: F Source: [facility] 5:48 AM [facility] REPOSITORY TYPE CODE TESTS RESULT OUT OF REFERENCE UNITS RANGE LAB GLUP 70-99 mg/dL Glucose (poc 92 device) Result Comment: Notified RNread back No BRAVE per RN: PATIENT TYPE LAB PCSTYP *POC Capillary SAMPLE TYPE Blood CT THORACO-LUMBAR SPINE Observed: 08/30/2017 Status: F Source: [facility] WITHOUT CONTRAST 9:41 AM [facility] REPOSITORY EXAM: CT THORACO-LUMBAR SPINE WITHOUT CONTRAST, 08/29/2017 16:24 PM COMPARISON: Same day MRI of the lumbar spine. CLINICAL INDICATIONS:71 years Female surgical planning; RELEVANT CLINICAL HISTORY: M48.062:Spinal stenosis, lumbar region with neurogenic claudication TECHNIQUE: A series of transaxial multislice computerized tomographic images of the thoracic and lumbar spine are obtained with helical technique without intravenous contrast. Reformats: Axial 3 mm, Sagittal and Coronal. A Stealth protocol was performed. This patient underwent a CT examination using radiation exposure as low as reasonably achievable. CTDIvol and DLP radiation exposure values for each series were: Exposure: 1; Series: 7; Anatomy: Neck; Phantom: 32 cm; CTDIvol: 42; DLP: [address] dose indicators for CT are the volume Computed Tomography (CT) Dose Index (CTDIvol) and the Dose Length Product (DLP), and are measured in units of mGy and mGy-cm, respectively. These indicators are not patient dose, but values generated from the CT scanner acquisition factors and may substantially underestimate or overestimate the absorbed dose based on patient size and other factors. FINDINGS: THORACIC SPINE: There are 12 rib bearing thoracic vertebra which are normal in alignment. Thoracic vertebral body heights are preserved. Several anterior osteophytes are noted in the mid to lower thoracic spine. Several of these are bridging osteophytes, which suggest underlying diffuse idiopathic skeletal hyperostosis. There is mild disc height loss at T12-L1. Scattered vacuum disc phenomenon is noted in the mid to lower thoracic spine. There is a prominent right central disc osteophyte complex at T11-12 contributing to an estimated mild spinal stenosis. A small disc bulge with a partly calcified or ossified left central component is present at T12-L1 contributing to an estimated mild spinal stenosis. Some tiny disc herniations are suggested within the upper to midthoracic spine which are not associated with osseous spinal stenosis. No critical thoracic foraminal narrowing is noted. There is no evidence of a dominant paraspinal mass or collection in the thoracic region. Atherosclerotic calcifications are present within the aorta and portions of the coronary arteries. Lungs are grossly clear. LUMBAR SPINE: There are 5 lumbar type vertebral bodies. There is grade 1 retrolisthesis of L1 on L5 to and grade 1 anterolisthesis of L4 and L5. This is stable. Borderline anterior wedging is present at the L3 level. Remaining lumbar vertebral body heights are preserved. Mild disc height loss is noted in the upper lumbar spine. Vacuum disc phenomenon is noted at L1-2, L2-3 and L4-5. Multilevel degenerative disc disease is noted throughout the lumbar spine which includes generalized facet arthropathy as well as superimposed epidural lipomatosis. Refer to the same day MRI examination for further characterization of the degenerative changes. No dominant paraspinal mass or collection is identified. Liver is prominent in size, and the right hepatic lobe extends below the inferior margin of the right kidney. IMPRESSION: Stealth protocol CT of the thoracic and lumbar spine was performed for treatment planning purposes. There are 12 rib bearing thoracic vertebra and 5 nonrib-bearing lumbar vertebra. Grade 1 spinal listhesis at L1-2 and L4-5. Multiple level degenerative changes are noted in the thoracolumbar spine including a prominent central disc osteophyte complex at T11- 12 demonstrating superior and inferior migration. Refer to the same day MRI examination to the lumbar spine for further characterization of the degenerative changes. SPINE LUMBAR Observed: 08/30/2017 Status: F Source: [facility] WITHOUT CONTRAST 9:19 AM [facility] REPOSITORY EXAM: MRI SPINE LUMBAR WITHOUT CONTRAST, 08/29/2017 15:58 PM COMPARISON: Outside MRI of the lumbar spine performed on . Correlation is made with CT of the thoracic and lumbar spine performed on 10:18 AM radiographs of the lumbar spine performed on November 27, 2016. CLINICAL INDICATIONS: 71 years Female Spinal stenosis, lumbar; surgical planning; RELEVANT CLINICAL HISTORY: M48.062:Spinal stenosis, lumbar region with neurogenic claudication TECHNIQUE: A series of sagittal and axial multisequence images of the lumbar spine were obtained without intravenous contrast using standard protocol. FINDINGS: 5 lumbar type vertebral bodies are identified. There is grade 1 retrolisthesis of L1 on L2 measuring approximately 3-4 mm grade grade 1 anterolisthesis of L4 and L5 measuring 6 mm is also present. Alignment is stable. There is borderline anterior wedging at L3. Scattered degenerative endplate changes are noted in the lumbar spine including a combination of type I and type II Modic degenerative endplate changes. No suspicious marrow lesion is identified. There is disc height loss at T12-L1 through L2-3. General is disc desiccation is present. Similar findings were noted previously. The tip of the conus lies within normal position. No significant paraspinal soft tissue abnormality is identified. By levels: T11-12: There is a prominent right central disc extrusion at this level which has mildly progressed in size since the outside study from 2017. The extrusion measures 0.5 x 1.1 x 1.6 cm in AP by TRV by CC dimension and demonstrates both superior and inferior subligamentous extension. It partially effaces the ventral thecal sac and contributes to mild spinal stenosis. No significant foraminal narrowing is present at this level. T12-L1: Small disc bulge with an asymmetric left central and subarticular zone component is grossly stable in size. Bilateral facet arthropathy. No significant spinal stenosis or foraminal narrowing. L1-L2: There is a disc bulge associated with bilateral facet arthropathy, ligamentum flavum thickening, and epidural lipomatosis at this level which results in moderate circumferential spinal stenosis. AP diameter of the canal measures 8 mm. Moderate right and mild left foraminal narrowing are present. Findings at this level appear grossly stable. L2-L3: There is a disc bulge with a superimposed central disc extrusion. Central extruded component of the disc measures approximately 0.7 x 1.3 cm in AP by CC dimension and is new in comparison to prior MRI. Bilateral facet arthropathy and ligamentum flavum thickening are also present. Together, the findings result in severe spinal stenosis and near complete effacement of the CSF at this level. AP diameter of the canal measures approximately 4 mm. Mild bilateral foraminal narrowing is present. Degenerative changes at this level have worsened since the prior MRI, and the degree of spinal stenosis is more severe. L3-L4: No significant disc herniation. Bilateral facet arthropathy, ligament flavum thickening and posterior epidural lipomatosis contribute to moderate spinal stenosis at this level. There is mild left foraminal narrowing. Findings are stable. L4-L5: There is grade 1 anterolisthesis at this level with uncovering of the disc space, bilateral facet arthropathy, and mild ligamentum flavum thickening. Findings contribute to mild spinal stenosis and mild bilateral foraminal narrowing and appears stable. L5-S1: Tiny central disc protrusion. Generalized prominence of the epidural fat is present at L5-S1 which results in tapering of the thecal sac at the disc level. This finding is stable. No significant foraminal narrowing. No significant abnormality is identified within the visualized portions of the abdomen or pelvis. IMPRESSION: Multilevel degenerative disc disease of the lumbar spine with superimposed epidural lipomatosis contributing to multilevel spinal stenosis and foraminal narrowing. When compared to the prior MRI from 2017, the degenerative changes at T11-12 and L2-3 have progressed. At T11-12, there is a right central disc extrusion which is larger in size and contributes to an estimated mild spinal stenosis. At the L2-3 level, there is a disc bulge with a new prominent central extruded component contributing to severe spinal stenosis. Grade 1 spondylolisthesis at L1-2 and L4-5. Observed: 08/29/2017 Status: F Source: [facility] - 11:[address] [facility] REPOSITORY ABO/RH(D): A POSITIVE ANTIBODY SCREEN: NEGATIVE UNIT NUMBER: [id number] BLOOD COMPONENT TYPE: Red Cells, Leukoreduced_[id number] STATUS OF UNIT: REL FROM ALLOC TRANSFUSION STATUS: OK TO TRANSFUSE CROSSMATCH RESULT: Electronically Compatible UNIT NUMBER: [id number] BLOOD COMPONENT TYPE: Red Cells, Leukoreduced_[id number] STATUS OF UNIT: REL FROM ALLOC TRANSFUSION STATUS: OK TO TRANSFUSE CROSSMATCH RESULT: Electronically Compatible UNIT NUMBER: [id number] BLOOD COMPONENT TYPE: Red Cells, Leukoreduced_[id number] STATUS OF UNIT: REL FROM ALLOC TRANSFUSION STATUS: OK TO TRANSFUSE CROSSMATCH RESULT: Electronically Compatible UNIT NUMBER: [id number] BLOOD COMPONENT TYPE: Red Cells, Leukoreduced_[id number] STATUS OF UNIT: REL FROM ALLOC TRANSFUSION STATUS: OK TO TRANSFUSE CROSSMATCH RESULT: Electronically Compatible UNIT NUMBER: [id number] BLOOD COMPONENT TYPE: Red Cells, Leukoreduced_[id number] STATUS OF UNIT: REL FROM ALLOC TRANSFUSION STATUS: OK TO TRANSFUSE CROSSMATCH RESULT: Electronically Compatible UNIT NUMBER: [id number] BLOOD COMPONENT TYPE: Red Cells, Leukoreduced_[id number] STATUS OF UNIT: REL FROM ALLOC TRANSFUSION STATUS: OK TO TRANSFUSE CROSSMATCH RESULT: Electronically Compatible Performed By: #### XMPO #### [facility] [address] [place] [address] [facility] [address] [place] [address] CBC WITH DIFF Collected: 08/29/2017 Status: F Source: [facility] 10:44 AM [facility] REPOSITORY TYPE CODE TESTS RESULT OUT OF REFERENCE UNITS RANGE LAB WBC 3.98-10.04 K/uL WBC Count 11.30 High LAB RBC 3.93-5.22 M/uL RBC Count 4.69 LAB HGB 11.2-15.7 g/dL Hemoglobin 13.7 LAB HCT 34.1-44.9 % Hematocrit 43.5 LAB MCV 79.4-94.8 fL Mean Cell 92.8 Volume LAB MCH 25.6-32.2 pg Mean Cell 29.2 Hgb LAB MCHC 32.2-35.5 g/dL Mean Cell 31.5 Low Hgb Conc LAB RDW 11.7-14.4 % RBC 14.4 Distribution LAB PLT 182-369 K/uL Platelet 276 Count LAB MPV 9.4-12.3 fL Mean 9.4 Platelet Volume LAB NRBC 0.0-0.2 /100 WBC NUCLEATED 0.0 RBC LAB DTYPE Electronic DIFFERENTIAL TYPE Differential LAB IGRE % IMMATURE 0.5 GRANS % LAB SEGS % NEUTROPHIL 69.2 SEGMENTED LAB LYM % LYMPHOCYTE 20.0 % LAB MON % MONOCYTE % 7.4 LAB EOS % EOSINOPHIL 2.1 % LAB BASO % BASOPHIL % 0.8 LAB IGABS 0.00-0.03 K/uL IMMATURE 0.06 High GRANS ABSOLUTE LAB SBANS 1.56-6.13 K/uL SEGS + 7.81 High Bands,Absolute LAB ALYM 1.18-3.74 K/uL Abs Lymph 2.26 LAB AMONO 0.24-0.86 K/uL Abs Converse 0.84 LAB AEOS 0.04-0.36 K/uL Abs Eos 0.24 LAB ABASO 0.01-0.08 K/uL Abs Baso 0.09 High Performed By: #### CBCDFM, CAC, CHM7C, IPC, MGCC #### [facility] [address] [place] [address] #### PTPTTC, A1CB #### [facility] [address] [place] [address] PT/PTT - IVOR Collected: 08/29/2017 Status: F Source: [facility] 10:44 AM [facility] REPOSITORY TYPE CODE TESTS RESULT OUT OF RANGE REFERENCE UNITS LAB PT 11.9-14.2 sec PT 12.1 LAB INR 0.9-1.1 INR 0.9 LAB PTT 24.0-34.3 sec PTT 26.0 Performed By: #### CBCDFM, CAC, CHM7C, IPC, MGCC #### [facility] [address] [place] [address] #### PTPSHAILESHC, A1CB #### [facility] [address] [place] [address] [address] Collected: 08/29/2017 Status: F Source: [facility] 10:44 AM [facility] REPOSITORY TYPE CODE TESTS RESULT OUT OF REFERENCE UNITS RANGE LAB CA 8.6-10.5 mg/dL Calcium 9.8 Performed By: #### CBCDFM, CAC, CHM7C, IPC, MGCC #### [facility] [address] [place] [address] #### PTPTTC, A1CB #### [facility] [address] [place] [address] CHEM 7 - [address] Collected: 08/29/2017 Status: F Source: [facility] 10:44 AM [facility] REPOSITORY TYPE CODE TESTS RESULT OUT OF REFERENCE UNITS RANGE LAB NA 133-143 mmol/L Sodium 140 LAB K 3.5-5.0 mmol/L Potassium 4.2 LAB CL 98-108 mmol/L Chloride 103 LAB CO2 22-30 mmol/L Carbon High Dioxide 32 LAB BUN 7-22 mg/dL BUN 19 LAB CREA 0.50-1.20 mg/dL Creatinine 0.92 LAB GLUC 70-99 mg/dL Glucose 82 LAB GAP 7-17 mmol/L Anion Gap 9 LAB GFR >60 mL/min/1.73 sqM Est GFR,non >60 Marshall[place] LAB GFRA >60 mL/min/1.73 sqM Est GFR, >60 LAB OSMC 278-305 mOsm/kg Osmolality 294 (Calc) Performed By: #### CBCDFM, CAC, CHM7C, IPC, MGCC #### [facility] [address] [place] [address] #### PTPTTC, A1CB #### [facility] [address] [place] [address] INORG PHOSPHATE - Collected: 08/29/2017 Status: F Source: [facility] GI[facility]ANNY [facility] 10:44 AM [facility] REPOSITORY TYPE CODE TESTS RESULT OUT OF REFERENCE UNITS RANGE LAB IP 2.2-4.6 mg/dL Inorg Phosphate 3.3 Performed By: #### CBCDFM, CAC, CHM7C, IPC, MGCC #### [facility] [address] [place] [address] #### PTPTTC, A1CB #### [facility] [address] [place] [address] MAGNESIUM - [address] Collected: 08/29/2017 Status: F Source: [facility] 10:44 AM [facility] REPOSITORY TYPE CODE TESTS RESULT OUT OF REFERENCE UNITS RANGE LAB MG 1.6-2.6 mg/dL Magnesium 2.0 Performed By: #### CBCDFM, CAC, CHM7C, IPC, MGCC #### [place] [address] [place] [address] #### PTPTTC, A1CB #### [facility] [address] [place] [address] HEMOGLOBIN A1C Collected: 08/29/2017 Status: F Source: [facility] 10:44 AM [facility] REPOSITORY TYPE CODE TESTS RESULT OUT OF REFERENCE UNITS RANGE LAB A1C 4.7-5.6 % Hemoglobin A1C 5.4 LAB EAG mg/dL Estimated 108 Average Glucose Performed By: #### CBCDFM, CAC, CHM7C, IPC, MGCC #### [facility] [address] [place] [address] #### PTPTTC, A1CB #### [facility] [address] [place], [place] [address] [place] [address] [address] [place] [address] URINALYSIS W REFLEX Collected: 08/29/2017 Status: F Source: [facility] 10:44 AM [facility] REPOSITORY TYPE CODE TESTS RESULT OUT OF REFERENCE UNITS RANGE LAB CHEESE MAKER Clear Appearance Urine Clear LAB SPGR 1.001-1.035 Specific [place] urine 1.010 LAB UGL Negative mg/dL Glucose Urine Negative LAB UKET Negative Ketones Urine Negative LAB UBLD Negative Blood Urine Negative LAB UPH 5.0-7.0 pH Urine 6.0 LAB UPR Negative mg/dL Protein Urine Negative LAB UNTR Negative Nitrites Urine Negative LAB ULEU Negative Leukocyte Esterase Negative LAB COLR Yellow Color Yellow LAB UURO <2.0 EU/dL Urobilinogen urine 0.2 LAB UWBC 0-5 /HPF WBC Urine 0-5 LAB URBC 0-2 /HPF RBC Urine 0-2 LAB BACT Absent Bacteria Absent LAB EPIS /HPF Squamous Epithelial 1+ LAB UCOM COMMENT URINE None Performed By: #### URN1C #### [facility] [address] [place] [address] Observed: 08/29/2017 Status: F Source: [facility] SCREEN: RESP STAPH 10:[address] [facility] (HIGH RISK SURGERY) [facility] REPOSITORY NARES: Negative Negative This test was performed using a real time PCR assay. Results should be interpreted in conjunction with other clinical and laboratory findings. A positive result does not necessarily indicate the pr esence of viable organism. This test should not be used as a test of cure. For E-swab specimens, this test was developed and its performance characteristics determined by the Clinical Microbiology Laboratory at [facility]. It has not b een cleared or approved by the FDA.The laboratory is regulated under CLIA as qualified to perform high-complexity testing. This test is used for clinical purposes. It should not be regarded as investigational or for research. Performed By: #### SCRSB #### [place] [address] ORTHOPEDIC VISIT Observed: 07/21/2017 Status: F Source: [place] REPORT 11:56 AM [facility] REPOSITORY [facility] Orthopa[facility]ics AND Sports Medicine [address] [place] [address] OFFICE VISIT Date of Service: 07/16/17 MR#: [id number] Acct: [id number] Name: DON STRONG Rep #: [id number] : 1945 Provider: Aby Rosas MD Age/Sex: 71/F Location: [facility] Status: Signed Intake Vital Signs07/16/17 Height 5 ft 1 in 07/16/17 Weight: 286 lb 07/16/17 Body Mass Index (BMI) 54.0 Intake Visit Reasons: low back Chief Complaint: back pain Is patient in pain?: Yes Pain scale (1-10): 5 Allergies No Known Allergies Allergy (Verified 07/16/17 11:47) Medications Atenolol [Tenormin (beta rema)] 50 mg PO DAILY 02/20/13 [History Confirmed 07/07/17] Hydroxychloroquine [Plaquenil] 200 mg PO BIDCM 02/20/13 [History Confirmed 07/07/17] Ropinirole HCl [Requip] 2 mg PO QHS PRN PRN 02/20/13 [History Confirmed 07/07/17] Gabapentin 400 mg PO 5X/DAY 05/05/13 [History Confirmed 07/07/17] Cyclobenzaprine [Flexeril] 10 mg PO TID PRN PRN 08/24/13 [History Confirmed 07/07/17] Infliximab [Remicade] 5 mg IV QMONTH 08/24/13 [History Confirmed 07/07/17] Multivitamins,Therapeutic [Multivitamin] 1 tab PO DAILY 08/24/13 [History Confirmed 07/07/17] Duloxetine Hcl [Cymbalta] 30 mg PO DAILY 05/10/15 [History Confirmed 07/08/17] Calcium Carbonate [Calcium] 600 mg PO BID 08/25/15 [History Confirmed 07/07/17] Levothyroxine [Synthroid] 50 mcg PO DAILY 01/23/16 [History Confirmed 07/07/17] Lansoprazole [Prevacid] 30 mg PO BID 08/21/16 [History Confirmed 07/07/17] Metformin HCl 500 mg PO DAILY 08/22/16 [History Confirmed 07/07/17] Citalopram [Celexa] 10 mg PO QHS 07/07/17 [History Confirmed 07/08/17] Oxycodone Myristate [Xtampza ER] 9 mg PO Q8 PRN 07/07/17 [History Confirmed 07/07/17] Meloxicam 15 mg PO DAILY #30 tab 07/11/17 [Rx] PFSH Social History Smoking Status: Never smoker HPI low back: Details: DON STRONG returns today in follow up for continued lumbar pain 40% and bilateral anterior thigh and anterior calf pain 60%. She states that her low back pain and bilateral leg radicular pain is worsening. Her pain is worse wtih standing and improved with sitting. She was recently in the ER last weekend due to aggravation of symptoms. She had an ARMANDO on 07/10/2017, which helped. She denies bowel or bladder issues. She has stable bilateral ankle weakness. She takes xtampza 9mg TID and mobic and celexa. She states she has lost weight - 16pounds since her last visit and is in a weight loss program. She does have psoriasis and is on infliximab and plaquenil. ROS Const Reports system reviewed and no additional complaints, except as docu Eyes Reports system reviewed and no additional complaints, except as docu ENT Reports system reviewed and no additional complaints, except as docu Card Reports system reviewed and no additional complaints, except as docu Resp Reports system reviewed and no additional complaints, except as docu GI Reports system reviewed and no additional complaints, except as docu Reports system reviewed and no additional complaints, except as docu Musc Reports back pain, Reports radiating pain into limb, Reports numbness, Reports muscle weakness Skin/Breast Reports system reviewed and no additional complaints, except as docu Neuro Yes system reviewed and no additional complaints, except as docu, Yes numbness Psych Reports system reviewed and no additional complaints, except as docu Endo Reports system reviewed and no additional complaints, except as docu Ortho Exam Spine Neuro: Yes Forman's (negative bilaterally) and Straight Leg Raise (negative bilaterally) General: oriented x3, alert Capillary Refill <2sec: Yes Gait: other, steppage Sensory Exam: other (decreased senstaion in bilateral lower extremities) DTR's: Rt Patellar: 2+, Lt Patellar: 2+, Rt Ankle: 1+, Lt Ankle: 1+ Coordination: Romberg test normal SPINE TESTING CERVICAL THORACIC LUMBAR SLR: Negative Musculoskeletal General: Yes normal posture Cervical Spine: cervical ROM normal Thoracic/Lumbar Spine: straight leg raise negative bilaterally, pain with thoraco-lumbar ROM, thoraco-lumbar ROM limited, paraspinal tenderness Strength 0=absent - 5=normal R Hip Flexor (L1-3): 5, L Hip Flexor (L1-3): 5, R Quadriceps (L2-4): 5, L Quadriceps (L2-4): 5, R Anterior Tibialis (L4-5): 4, L Anterior Tibialis (L4-5): 4, R Hamstrings (L5-S1): 5, L Hamstrings (L5-S1): 5, GS (S1): 5, L GS (S1): 5, R Peroneals (S1): 5, L Peroneals (S1): 5 Assessment AND Plan Problems 1. Spinal stenosis, lumbar region with neurogenic claudication M48.062 Plan I/R/P: 1. back pain 2. bilateral leg pain with chronic bilateral ankle weakness 3. psoriatic arthritis with DMARD 4. fibromyalgia 5. DM 6. BMI 51 7. chronic opioid use Ms. Strong presents with back pain and bilateral leg pain in the setting lumbar spinal stenosis with neurogenic claudication. She is working to lose weight. She continues to be significantly affected in her quality of life with another visit to the ER for exacerbation of her pain as well as need to increased pain medication. She has failed nonoperative treatment to include injections, medications and physical therapy. Recommend an L1-S1 laminectomy with possible interbody graft and [id number] instrumented fusion with Dr. Atwood, plastic surgery closure. She will need surgery at the [facility]. She will need an updated MRI lumbar spine and CT thoracolumbar spine for preoperative planning. She will need OPAC and follow up at [facility]. She will continue care with Dr. Conroy for pain management. She will need to hold her DMARD 3 weeks preoperatively and postoperatively. Discussed she is at increased perioperative risks in the setting of the above comorbidities. She and her daughter verbalized understanding. Plan of care discussed. All questions answered. She is in understanding. Coding Level of Care Code Off vis,est,level 4 Diagnoses Spinal stenosis, lumbar region with neurogenic claudication M48.062 07/21/17 1156 <Electronically signed by Aby Rosas MD> Date Aby Rosas MD Cosigner Signature: Date (if applicable) CC: DISCHARGE SUMMARY Observed: 07/11/2017 Status: F Source: [place] 2:47 PM [facility] REPOSITORY [facility] Medical Records Department [address] [place] [address] Discharge Summary 07/11/17 1144 MR#: [id number] Acct: [id number] Name: DON STRONG Rep #: [id number] : 1945 71 From: Sussy Prajapati MD PCP: Fadumo Mandel DO Status: ADM JOSEPHINE Y Location: [place] [address] Discharge Date and Diagnosis - Problem List Patient Problems: Active and Suspected Problems Acute exacerbation of chronic low back pain (Acute) Date of Admission: 07/08/17 Date of Discharge: 07/11/17 - Primary Discharge Diagnosis Active and Suspected Problems Acute on chronic low back pain (Acute) - Secondary Discharge Diagnosis Chronic Problems Morbid obesity (Chronic) Fibromyalgia (Chronic) IBS (irritable bowel syndrome) (Chronic) Obstructive sleep apnea (Chronic) Peripheral neuropathy (Chronic) Hypothyroidism (Chronic) Chronic low back pain (Chronic) Psoriatic arthritis (Chronic) Type 2 diabetes mellitus (Chronic) Hypertension (Chronic) Hospital Course and Treatment Imaging Results: Clinical Impression(s) from Imaging Studies Spine X-Ray 07/10/17 15:25 IMPRESSION: Fluoroscopy provided during a nerve block procedure. Electronically Signed: Lázaro John, at 17:09 EDT Tel , Service support , Pain management, Dr. Conroy Operations: None, - - Epidural injection Procedures: None Summary of Care Provided: 71 y/o F with PMHx of Morbid Obesity, Diabetes mellitus type II, Hypertension, Chronic Lumbar Back Pain with radiculopathy with lumbar spinal stenosis with impingement, following Dr. Conroy admitted on 07/08/17 with history of acute on chronic lumbar back pain with worsened bilateral lower extremity radicular pain. 1. Acute on Chronic Intractable Back Pain, lumbar with bilateral lower extremity radiculopathy with chronic spinal stenosis, pain control was used during this admission, pain management was consulted, patient had L4-S1 nerve block done on 07/10/2017 2. Psoriatic Arthritis, on plaquenil, monthly remicade 3. Diabetes mellitus type II with neuropathy, sugars were stable during the admission. 4. Morbid Obesity, weight loss and lifestyle changes encouraged. 5. Anxiety and Depression, on cymbalta, celexa. 6. Hypothyroidism, on synthroid. 7. Hypertension, stable Discharge Diet: Low fat/ Low Cholesterol, 2000 mg Sodium Diet, Carb Control Diet Discharge Activity: Return to Normal Activity Home Medications: Medications to take at Discharge Atenolol [Tenormin (beta rema)] 50 mg PO DAILY 02/20/13 Hydroxychloroquine [Plaquenil] 200 mg PO BIDCM 02/20/13 Ropinirole HCl [Requip] 2 mg PO QHS PRN PRN 02/20/13 Gabapentin 400 mg PO 5X/DAY 05/05/13 Cyclobenzaprine [Flexeril] 10 mg PO TID PRN PRN 08/24/13 Infliximab [Remicade] 5 mg IV QMONTH 08/24/13 Multivitamins,Therapeutic [Multivitamin] 1 tablet PO DAILY 08/24/13 Duloxetine Hcl [Cymbalta] 30 mg PO DAILY 05/10/15 Calcium Carbonate [Calcium] 600 mg PO BID 08/25/15 Levothyroxine [Synthroid] 50 mcg PO DAILY 01/23/16 Lansoprazole [Prevacid] 30 mg PO BID 08/21/16 Metformin HCl 500 mg PO DAILY 08/22/16 Citalopram [Celexa] 10 mg PO QHS 07/07/17 Oxycodone Myristate [Xtampza ER] 9 mg PO Q8 PRN 07/07/17 Meloxicam 15 mg PO DAILY #30 tab 07/11/17 Following Prescrptions Were Given to Patient: Meloxicam 15 mg PO DAILY #30 tab Primary Care Physician: Fadumo Mandel DO [Primary Care Provider] - Please follow up with your Primary Care Physician in: within 2 weeks of discharge Please Follow Up With: Khalida Conroy MD When: as scheduled Disposition: Home Minutes spent on discharge:: 25 Patient Condition:: Stable Medical Necessity - Tobacco Use Smoking Status: Never smoker Tobacco Use: Non-smoker Meaningful Use Info Meaningful Use Diagnoses (Choose all that apply): None applicable Code Visit Inpatient E AND M: 36261 Disch Hosp 07/11/17 1447 <Electronically signed by Sussy Prajapati MD> Date Sussy Prajapati MD Cosigner Signature (if applicable): Date CC: Sussy Prajapati MD; Fadumo Mandel DO Signed BEDSIDE GLUCOSE Collected: 07/11/2017 Status: F Source: [place] 12:11 PM [facility] REPOSITORY TYPE CODE TESTS RESULT OUT OF REFERENCE UNITS RANGE LAB L501.080 70-110 mg/dL High BEDSIDE GLU 130 Result Comment: MANAGEMENT OF PATIENT CARE PER NURSING PROTOCOL Performed By: #### L501.080 #### [facility] Point of Care [address] [place] [address] DISCHARGE INSTRUCTION Observed: 07/11/2017 Status: F Source: [place] 11:44 AM [facility] REPOSITORY [facility] Medical Records Department [address] [place] [address] Instructions for Home/Discharge Instructions 07/11/17 1140 MR#: [id number] Acct: [id number] Name: DON STRONG Rep #: [id number] : 1945 71 From: Sussy Prajapati MD PCP: Fadumo Mandel DO Status: ADM JOSEPHINE - Discharge Diagnoses Current Active Problems: Current Active and Chronic Problems Morbid obesity (Chronic) Fibromyalgia (Chronic) IBS (irritable bowel syndrome) (Chronic) Acute exacerbation of chronic low back pain (Acute) Reason(s) for Visit for Discharge Instructions: Acute on chronic back pain You will use the following diet at home:: Calorie/Carbohydrate Controlled (specify 1200, 1400, etc), Cardiac Your food should be the consistency of: Regular Your liquids should be the consistency of: Regular/Thin Discharge Activity: Return to Normal Activity Additional Instructions: Follow-up closely with DR. Conroy in the outpatient Allergies/Adverse Reactions: Allergies No Known Allergies Allergy (Verified 02/14/17 12:50) Medications to take at Discharge Atenolol [Tenormin (beta rema)] 50 mg PO DAILY 02/20/13 Hydroxychloroquine [Plaquenil] 200 mg PO BIDCM 02/20/13 Ropinirole HCl [Requip] 2 mg PO QHS PRN PRN 02/20/13 Gabapentin 400 mg PO 5X/DAY 05/05/13 Cyclobenzaprine [Flexeril] 10 mg PO TID PRN PRN 08/24/13 Infliximab [Remicade] 5 mg IV QMONTH 08/24/13 Multivitamins,Therapeutic [Multivitamin] 1 tablet PO DAILY 08/24/13 Duloxetine Hcl [Cymbalta] 30 mg PO DAILY 05/10/15 Calcium Carbonate [Calcium] 600 mg PO BID 08/25/15 Levothyroxine [Synthroid] 50 mcg PO DAILY 01/23/16 Lansoprazole [Prevacid] 30 mg PO BID 08/21/16 Metformin HCl 500 mg PO DAILY 08/22/16 Citalopram [Celexa] 10 mg PO QHS 07/07/17 Oxycodone Myristate [Xtampza ER] 9 mg PO Q8 PRN 07/07/17 Meloxicam 15 mg PO DAILY #30 tab 07/11/17 The following prescriptions were given: Meloxicam 15 mg PO DAILY #30 tab Primary Care Physician: Fadumo Mandel DO [Primary Care Provider] - Please follow up with your Primary Care Physician in: within 2 weeks of discharge Please Follow Up With: Khalida Conroy MD When: as scheduled Proposed Discharge Date: 07/11/17 07/11/17 1144 <Electronically signed by Sussy Prajapati MD> Date Sussy Prajapati MD CC: Khalida Conroy MD; Fadumo Mandel DO BEDSIDE GLUCOSE Collected: 07/11/2017 Status: F Source: [place] 6:34 AM [facility] REPOSITORY TYPE CODE TESTS RESULT OUT OF REFERENCE UNITS RANGE LAB L501.080 70-110 mg/dL High BEDSIDE GLU 119 Result Comment: MANAGEMENT OF PATIENT CARE PER NURSING PROTOCOL Performed By: #### L501.080 #### [facility] Point of Care [address] [place] [address] BEDSIDE GLUCOSE Collected: 07/10/2017 Status: F Source: [place]ANNE 8:53 PM [facility] REPOSITORY TYPE CODE TESTS RESULT OUT OF REFERENCE UNITS RANGE LAB L501.080 70-110 mg/dL High BEDSIDE GLU 130 Result Comment: MANAGEMENT OF PATIENT CARE PER NURSING PROTOCOL Performed By: #### L501.080 #### [facility] Point of Care [address] [place] [address] BEDSIDE GLUCOSE Collected: 07/10/2017 Status: F Source: [place] 4:23 PM [facility] REPOSITORY TYPE CODE TESTS RESULT OUT OF RANGE REFERENCE UNITS LAB L501.080 70-110 mg/dL Normal BEDSIDE GLU 91 Result Comment: MANAGEMENT OF PATIENT CARE PER NURSING PROTOCOL Performed By: #### L501.080 #### [facility] Point of Care [address] [place] [address] BEDSIDE GLUCOSE Collected: 07/10/2017 Status: F Source: [place] 11:56 AM [facility] REPOSITORY TYPE CODE TESTS RESULT OUT OF RANGE REFERENCE UNITS LAB L501.080 70-110 mg/dL Normal BEDSIDE GLU 97 Result Comment: MANAGEMENT OF PATIENT CARE PER NURSING PROTOCOL Performed By: #### L501.080 #### [facility] Point of Care [address] [place] [address] SPINE 1 VIEW ANY Observed: 07/10/2017 Status: F Source: JEANNE LEVEL 10:44 AM [facility] REPOSITORY [facility] Imaging Services [address] [place] [address] Spine 1 View Any Level MR#: [id number] Acct: [id number] Name: DON STRONG Rep #: [id number] : 1945 F 71 From: Lázaro John MD PCP: Fadumo Mandel DO Status: ADM JOSEPHINE Study: Spine 1 View Any Level Date of Exam: 07/10/17 Exam# [id number] Ordering Dr: Khalida Conroy MD STUDY: X-RAY - LUMBAR SPINE REASON FOR EXAM: Female, 71 years old. L4-S1 nerve block TECHNIQUE: 3 fluoroscopic views of the lumbar spine were obtained from an injection procedure. COMPARISON: None FINDINGS: Fluoroscopy was provided during a nerve block procedure. There is a needle noted overlying the L4-S1 levels. Please see the operative report for additional details. RAD/Spine 1 View Any Level IMPRESSION: Fluoroscopy provided during a nerve block procedure. Electronically Signed: Lázaro John, at 17:09 EDT Tel , Service support , CC: Khalida Conroy MD; Fadumo Mandel DO Group Therapist: Signed BEDSIDE GLUCOSE Collected: 07/10/2017 Status: F Source: [place] 6:34 AM [facility] REPOSITORY TYPE CODE TESTS RESULT OUT OF REFERENCE UNITS RANGE LAB L501.080 70-110 mg/dL High BEDSIDE GLU 113 Result Comment: MANAGEMENT OF PATIENT CARE PER NURSING PROTOCOL Performed By: #### L501.080 #### [facility] Point of Care [address] [place] [address] BEDSIDE GLUCOSE Collected: 07/09/2017 Status: F Source: [place] 9:11 PM [facility] REPOSITORY TYPE CODE TESTS RESULT OUT OF REFERENCE UNITS RANGE LAB L501.080 70-110 mg/dL High BEDSIDE GLU 153 Result Comment: Insulin Given MANAGEMENT OF PATIENT CARE PER NURSING PROTOCOL Performed By: #### L501.080 #### [facility] Point of Care [address] [place] [address] BEDSIDE GLUCOSE Collected: 07/09/2017 Status: F Source: [place]ANNE 4:24 PM [facility] REPOSITORY TYPE CODE TESTS RESULT OUT OF REFERENCE UNITS RANGE LAB L501.080 70-110 mg/dL High BEDSIDE GLU 172 Result Comment: MANAGEMENT OF PATIENT CARE PER NURSING PROTOCOL Performed By: #### L501.080 #### [facility] Point of Care [address] [place] [address] BEDSIDE GLUCOSE Collected: 07/09/2017 Status: F Source: [place] 11:15 AM [facility] REPOSITORY TYPE CODE TESTS RESULT OUT OF REFERENCE UNITS RANGE LAB L501.080 70-110 mg/dL High BEDSIDE GLU 157 Result Comment: MANAGEMENT OF PATIENT CARE PER NURSING PROTOCOL Performed By: #### L501.080 #### [facility] Point of Care [address] [place] [address] EMERGENCY DEPARTMENT Observed: 07/09/2017 Status: F Source: JEANNE SUMMARY 7:40 AM [facility] REPOSITORY [facility] Medical Records Department [address] [place] [address] Emergency Department Summary 07/08/17 0140 MR#: [id number] Acct: [id number] Name: TRESADON J Rep #: [id number] : 1945 71 From: Ryan Snow DO PCP: Fadumo Mandel DO Status: ADM JOSEPHINE - ER Visit Summary Date of Service: 07/08/17 Chief Complaint: Back pain History of Present Illness: The patient is a 71 F with a history of chronic back pain who presents with an exacerbation of her back pain today. Patient does not remember any injury or trauma to her back. Patient sees pain management physician for her chronic back pain. Patient states she has seen an orthopedic spine surgeon and had an MRI. Patient states she needs to lose weight before her spine surgeon will do her surgery. Patient states that her pain is over the lower lumbar area and radiates down both lower extremities. Patient states her pain is worse with any movement. Patient denies any bowel or bladder changes. Patient denies any saddle anesthesia. Physical Examination: Vital signs are stable with the exception of an elevated blood pressure of 193/97. Patient is afebrile. Patient is in no acute distress. Musculoskeletal exam reveals tenderness over the lumbar spine paraspinal muscles. There is no bony crepitance or step-off. Range of motion was limited in all motions of the lumbar spine secondary to pain. Strength is 5/5 bilaterally in the upper and lower extremities. There are no sensory deficits noted. There is pain in her low back with straight leg raising bilaterally at approximately 30 . There is no radicular pain with this however. Heart was regular rate and rhythm. Lungs were clear and equal bilaterally. There is good respiratory effort noted. The remaining physical exam is within normal limits. Emergency Department Course and Treatment: Patient was given injection of morphine here. Patient states she had some relief with this. Patient states she then was rolled to put on a bedpan and her pain became worse again. Patient was given a repeat dose of subcu morphine. Patient states she feels unsafe at home. Patient does not feel that she can care for herself tonight. Case was discussed with the hospitalist. She will evaluate the patient. She was given a dose of prednisone here. Disposition: Admit for observation Impression: Acute on chronic low back pain This note was generated with [email or web address] dictation software. It may contain incorrect words, spelling, and punctuation that were not noted in review of the chart prior to signing ED Disposition - Plan for ED Patient: Disposition: Acute Care Hospital [facility] Chief Complaint: Back Diagnosis: Acute exacerbation of chronic low back pain Referrals: Fadumo Mandel, DO [Primary Care Provider] - What to do if you have Problems For any increased pain, shortness of breath, bleeding, nausea or vomiting, chest pain, or any unexpected problems, contact your Primary Care Provider. Call [facility] ([phone]) or report to the closest Emergency Room. Call 911 if necessary. 07/09/17 0740 <Electronically signed by Ryan Snow DO> Date Ryan Snow DO Cosigner Signature (If Indicated): Date CC: Fadumobailee Mandel BEDSIDE GLUCOSE Collected: 07/09/2017 Status: F Source: [place] 7:33 AM [facility] REPOSITORY TYPE CODE TESTS RESULT OUT OF RANGE REFERENCE UNITS LAB L501.080 70-110 mg/dL Normal BEDSIDE GLU 92 Result Comment: MANAGEMENT OF PATIENT CARE PER NURSING PROTOCOL Performed By: #### L501.080 #### [facility] Point of Care [address] [place] [address] BEDSIDE GLUCOSE Collected: 07/08/2017 Status: F Source: [place] 10:20 PM [facility] REPOSITORY TYPE CODE TESTS RESULT OUT OF REFERENCE UNITS RANGE LAB L501.080 70-110 mg/dL High BEDSIDE GLU 152 Result Comment: MANAGEMENT OF PATIENT CARE PER NURSING PROTOCOL Performed By: #### L501.080 #### [facility] Point of Care [address] [place] [address] BEDSIDE GLUCOSE Collected: 07/08/2017 Status: F Source: [place] 4:04 PM [facility] REPOSITORY TYPE CODE TESTS RESULT OUT OF REFERENCE UNITS RANGE LAB L501.080 70-110 mg/dL High BEDSIDE GLU 120 Result Comment: MANAGEMENT OF PATIENT CARE PER NURSING PROTOCOL Performed By: #### L501.080 #### [facility] Point of Care [address] [place] [address] BEDSIDE GLUCOSE Collected: 07/08/2017 Status: F Source: [place] 11:01 AM [facility] REPOSITORY TYPE CODE TESTS RESULT OUT OF REFERENCE UNITS RANGE LAB L501.080 70-110 mg/dL High BEDSIDE GLU 181 Result Comment: MANAGEMENT OF PATIENT CARE PER NURSING PROTOCOL Performed By: #### L501.080 #### [facility] Point of Care [address] [place], [place] [id number] BEDSIDE GLUCOSE Collected: 07/08/2017 Status: F Source: [place] 6:34 AM [facility] REPOSITORY TYPE CODE TESTS RESULT OUT OF REFERENCE UNITS RANGE LAB L501.080 70-110 mg/dL High BEDSIDE GLU 135 Result Comment: MANAGEMENT OF PATIENT CARE PER NURSING PROTOCOL Performed By: #### L501.080 #### [facility] Point of Care [address] [facility] [address] [place], [place] [address] CBC W/DIFF, AUTOMATED Collected: 07/08/2017 Status: F Source: [place] 3:50 AM [facility] REPOSITORY TYPE CODE TESTS RESULT OUT OF RANGE REFERENCE UNITS LAB L100.1000 4.4-11.0 K/mm3 Normal WBC 9.6 LAB L100.1200 4.2-5.4 M/mm3 Normal RBC 4.34 LAB L100.1300 12.0-15.0 g/dl Normal HGB 12.7 LAB L100.1400 37-47 % Normal HCT 39.3 LAB L100.1500 81-99 fL Normal MCV 90.6 LAB L100.1600 27.0-32.0 pg Normal MCH 29.3 LAB L100.1700 32-36 g/gl Normal MCHC 32.3 LAB L100.1810 11.6-14.6 % Normal RDW CV 13.6 LAB L100.1820 35.1-43.9 fl High RDW SD 44.6 LAB L100.1900 150-450 K/mm3 Normal PLT 258 LAB L100.2000 6.2-12.0 fl Normal MPV 9.8 LAB L100.2100 47-70 % High NEUT% 74.9 LAB L100.2200 19-41 % Low LY% 13.4 LAB L100.2300 0-10 % Normal MONO% 6.8 LAB L100.2400 0-5 % Normal EO% 3.9 LAB L100.2500 0-1 % Normal BASO% 0.6 LAB L100.2550 0.0-0.9 % Normal IM GRAN % 0.400 Result Comment: IG% - Immature Granulocytes (promyelocytes, myelocytes and metamyelocytes) > 1% indicates that a LEFT SHIFT is Present. LAB L100.2620 2.0-7.7 X10 3/uL Normal Absolute Neut 7.2 LAB L100.2720 0.83-4.51 X10 3/ul Normal Absolute Lymph 1.28 Performed By: #### L100.0100 #### [facility] [address] [place], [address] COMPREHENSIVE METABOLIC Collected: 07/08/2017 Status: F Source: [facility] 3:50 AM [facility] REPOSITORY TYPE CODE TESTS RESULT OUT OF RANGE REFERENCE UNITS LAB L501.0100 74-106 mg/dL Normal GLU 105 Result Comment: Fasting Glucose result from 100 to 125 mg/dL suggests IMPAIRED HOMEOSTASIS per A.D.A. criteria. Please note revised GLUCOSE reference range effective 2017. LAB L501.1000 7-18 mg/dL Normal BUN 15 LAB L501.1100 0.55-1.02 mg/dL Normal CREAT,SERUM 0.98 Result Comment: The validity of the calculated GFR AND GFRAA in patients over 70 years has not been determined. Clinical correlation is essential. LAB L501.1110 >60 mL/min Normal EST GFR 60 Result Comment: Non- GFR Calc LAB L501.1115 >60 mL/min Normal EST GFR - AA 72 Result Comment: GFR Calc LAB L501.1255 ml/min Normal Estimated CRCL 39.73 LAB L501.1300 10-20 RATIO Normal BUN/CRE 15.4 LAB L501.1500 6.4-8. g/dL Normal 2 T PROT 7.2 LAB L501.1800 3.2-5. g/dL Low 0 ALB 3.1 LAB L501.1950 2.2-4. g/dL Normal 2 GLOB 4.1 LAB L501.2000 0.9-2. RATIO Low 4 A/G 0.8 LAB L501.2200 8.5-10 mg/dL Normal .1 CA 8.6 LAB L501.4100 15-37 U/L Normal AST 18 LAB L501.4305 45-117 U/L Normal ALK P 83 LAB L501.4405 13-56 U/L Normal ALT 23 Result Comment: Please note revised ALT reference range effective 2017. LAB L501.4600 0.20-1.00 mg/dL Normal T BILI 0.30 LAB L501.5300 136-145 mmol/L Normal NA 140 LAB L501.5600 3.5-5.1 mmol/L Normal K 3.9 LAB L501.5900 98-107 mmol/L Normal CL 104 LAB L501.6100 21.0-32.0 mmol/L Normal CO2 27.0 LAB L501.6200 5-15 Normal GAP 9 Performed By: #### L500.4050, L501.5200 #### [facility] [address] [place], [address] MAGNESIUM Collected: 07/08/2017 Status: F Source: [place] 3:50 AM [facility] REPOSITORY TYPE CODE TESTS RESULT OUT OF RANGE REFERENCE UNITS LAB L501.5200 1.6-2.6 mg/dL Normal MG 2.0 Result Comment: Please note revised Magnesium reference range effective 2017. Performed By: #### L500.4050, L501.5200 #### [facility] [address] [place], [address] HISTORY AND PHYSICAL Observed: 07/08/2017 Status: F Source: [place] EXAM 3:35 AM [facility] REPOSITORY [facility] Medical Records Department [address] [place] [address] History and Physical 07/08/17 0141 MR#: [id number] Acct: [id number] Name: DON STRONG Barry Rep #: [id number] : 1945 71 From: Siobhan Jennings PCP: Fadumo Mandel DO Status: ADM JOSEPHINE Y Location: [place] [id number] Problem List (1) Morbid obesity Status: Chronic (2) Fibromyalgia Status: Chronic (3) IBS (irritable bowel syndrome) Status: Chronic Qualifiers: Irritable bowel syndrome type: with diarrhea Qualified Code(s): K58.0 - Irritable bowel syndrome with diarrhea (4) Obstructive sleep apnea Status: Chronic (5) Acute exacerbation of chronic low back pain Status: Acute (6) Peripheral neuropathy Status: Chronic Qualifiers: Peripheral neuropathy type: polyneuropathy, unspecified Qualified Code(s): G62.9 - Polyneuropathy, unspecified (7) Hypothyroidism Status: Chronic Qualifiers: Hypothyroidism type: unspecified Qualified Code(s): E03.9 - Hypothyroidism, unspecified (8) Chronic low back pain Status: Chronic Qualifiers: Back pain laterality: midline Sciatica presence: with sciatica Sciatica laterality: bilateral sciatica Qualified Code(s): M54.41 - Lumbago with sciatica, right side; M54.42 - Lumbago with sciatica, left side; G89.29 - Other chronic pain (9) Psoriatic arthritis Status: Chronic (10) Type 2 diabetes mellitus Status: Chronic Qualifiers: Diabetes mellitus alf insulin use: without alf use Diabetes mellitus complication status: with unspecified complications Qualified Code(s): E11.8 - Type 2 diabetes mellitus with unspecified complications (11) Hypertension Status: Chronic Qualifiers: Hypertension type: essential hypertension Qualified Code(s): I10 - Essential (primary) hypertension History of Present Illness Date of Admission: 07/08/17 Chief Complaint: Acute on Chronic Intractable Back Pain The patient is a 71 y/o F w/ PMHx: Morbid Obesity, Fibromyalgia, IBS, BALJIT, Peripheral Neurology, Diabetes mellitus type II, Psoriatic Arthritis, Hypertension, Chronic Lumbar Back Pain w/ radiculopathy with lumbar spinal stenosis with impingement noted to be following w/ Dr. Conroy for pain management and Neurosurgery [facility] for planned intervention once appropriate weight loss goal achieved who presents to the [facility] ED on 07/08/17 with history of acute on chronic lumbar back pain w/ worsened BL LE radicular symptoms starting this past Saturday and not improving. She denies any change in bowel or bladder. She notes similar pain baseline but more severe. In the ED patient administered notable regimen morphine with marked improvement thus given severity of debility and unable to care for self ED requested patient admission. No labs were obtained while in the ED. Past Medical History Past Medical History (Chronic Problems): Chronic Problems Morbid obesity (Chronic) Fibromyalgia (Chronic) IBS (irritable bowel syndrome) (Chronic) Obstructive sleep apnea (Chronic) Peripheral neuropathy (Chronic) Hypothyroidism (Chronic) Chronic low back pain (Chronic) Psoriatic arthritis (Chronic) Type 2 diabetes mellitus (Chronic) Hypertension (Chronic) Allergies No Known Allergies Allergy (Verified 02/14/17 12:50) Home Medications: Ambulatory Orders Medication Instructions Recorded Surgical History: cholecystectomy, hysterectomy, total knee arthroplasty - BL TKR., - - R Reverse Shoulder replacement. 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 Denies: Chills, Fever, Weight Change HEENT: Denies: Head Aches, Sinus Congestion, Sinus Drainage Cardiovascular: Denies: Chest Pain, Palpitations Respiratory: Denies: Cough, Shortness of breath at rest, Sputum production Gastrointestinal: Reports: Diarrhea. Denies: Abdominal Pain, Nausea, Vomiting Genitourinary: Denies: Dysuria Musculoskeletal: Reports: Back Pain, Leg Pain. Denies: Joint Pain, Joint Tenderness Skin: Denies: Rash, Wounds Neurological: Denies: Numbness, Tingling, Focal weakness Psychiatric: Reports: Depression. Denies: Anxiety, Homicidal Ideations, Suicidal Ideations Hematologic/ Lymphatic: Denies: Easy Bruising, Easy Bleeding VTE Information - Inpt Only VTE Present on Admission: No VTE Mechan Device Prophylaxis: SCD's VTE Pharm Prophylaxis ordered?: Yes Patient Problems: Active and Suspected Problems Acute exacerbation of chronic low back pain (Acute) Subjective: Laying in the ED bed, severe pain with movement, otherwise upon initial evaluation was more comfortable appearing until movement in bed requested. Objective: Physical Examination: General: awake, alert, oriented x 3 and cooperative, laying in the ED bed, severe pain elicited with movement. Skin: normal color, turgor, no icterus, cyanosis. HEENT: AT/NC, EOMI, PERRLA, mildly dry MM, no carotid bruits or JVD noted. Lungs: Diminished BL bases, moderate effort, mild decrease BL bases, no rales, ronchi or wheezing. Heart: Regular rate and rhythm; no gallop, rub audible. Abdomen: soft, morbidly obese, NTTP, ND, normal BS, no HSM; however, habitus makes examination difficult. Extremities: no cyanosis, clubbing, BL ankle edema, severe discomfort to the lateral lumbar spine, discomfort with roll. Neurological: patient awake, alert, oriented x 3; cognitive function intact; pupils equally reactive to light and accomodation; cranial nerves II-XII grossly normal, moving all 4 extremities but severely limited given acute lumbar pain, no focal deficits, strength severely globally decreased secondary to acute presentation. Psychiatric: affect appears strained, no acute evidence of depressive or anxiety feelings. - Physical Exam Vital Signs Temp Pulse Resp BP Pulse Ox 98.7 F 101 H 20 H 203/91 H 96 07/07/17 20:59 07/07/17 20:59 07/07/17 20:59 07/08/17 00:01 07/08/17 00:01 Oxygen Delivery Method Room Air Weight: 291 lb 0.163 oz Body Mass Index (BMI) 55.0 Finger Stick Blood Glucose 164 Assessment/Plan Active and Suspected Problems Acute exacerbation of chronic low back pain (Acute) The patient is a 71 y/o F w/ PMHx: Morbid Obesity, Fibromyalgia, IBS, BALJIT, Peripheral Neurology, Diabetes mellitus type II, Psoriatic Arthritis, Hypertension, Chronic Lumbar Back Pain w/ radiculopathy with lumbar spinal stenosis with impingement noted to be following w/ Dr. Conroy for pain management and Neurosurgery [facility] for planned intervention once appropriate weight loss goal achieved who presents to the [facility] ED on 07/08/17 with history of acute on chronic lumbar back pain w/ worsened BL LE radicular symptoms starting this past Saturday and not improving. She denies any change in bowel or bladder. (1) Acute on Chronic Intractable Back Pain, Lumbar w/ BL LE Radiculopathy with Chronic Spinal Stenosis: Patient notes following w/ Neurosurgery with planned intervention once weight loss goal achieved. Following w/ Dr. Conroy for Chronic pain management. Given debility, unable to care for self, will admit to [facility], maintain on fall precautions, frequent positioning, po/IV pain regimen, burst prednisone steroid regimen, flexeril PRN, anti- emetics, bowel regimen. Will consult PT and OT for evaluation. If pain ongoing may need to obtain MRI lumbar spine region of consider consultation to Dr. Conroy for injection. Most recently noted MRI Lumbar Spine 08/2016 with multilevel foraminal stenosis with impingement. (2) Psoriatic Arthritis: Maintain home regimen plaquenil, outpatient qmonth remicade, PRN pain regimen. (3) Diabetes mellitus type II w/ Neuropathy: Hold oral home regimen, ADA diet, accu checks w/ ISS, continue neurontin. (4) Morbid Obesity: Weight loss and lifestyle changes encouraged, nutrition consulted. (5) Anxiety and Depression: Maintain on home regimen cymbalta, celexa. (6) Hypothyroidism: Maintain on home synthroid regimen. (7) Hypertension: Continue home regimen including atenolol, PRN hydralazine. (8) GERD: Famotidine. (9) RLS: Maintain on home requip regimen. (10) BALJIT: BIPAP q HS. (11) DVT Prophylaxis: SCDs, lovenox. Code Visit OBSV E AND M: [id number] Initial observation care L3 07/08/17 0335 <Electronically signed by Siobhan Jennings > Date Siobhan Jennings Cosigner Signature: Date (if applicable) CC: Siobhan Jennings; Fadumo Mandel DO Signed URINE DRUG SCREEN Collected: 05/30/2017 Status: F Source: JEANNE ([place]) 12:55 PM [facility] REPOSITORY Order Comment: List of Drugs Taken or Suspected? N TYPE CODE TESTS RESULT OUT OF RANGE REFERENCE UNITS LAB L505.0075 TO BE Normal CONFIRMED Result Comment: CONFIRMATORY TESTING FOR ALL POSITIVE URINE DRUG SCREEN RESULTS WILL ONLY BE SENT OUT UPON PHYSICIAN ORDER. VISTA Urine Drug Screen methods provide only preliminary analytical test results. A more specific alternate chemical method must be used in order to obtain a confirmed analytical result. Gas chromatography/mass spectrometery (GC/MS) is the preferred confirmatory method. Clinical consideration and professional judgement should be applied to any drug of abuse test result, particularly when preliminary positive results are used. URINE TCA TESTING MUST BE ORDERED SEPARATELY. USE TEST MNEMONIC: [facility] LAB L505.5005 VISTA UDS PH 7 Normal LAB L505.5015 <1000 ng/mL AMPHETAMINES Normal NEGATIVE LAB L505.5025 < 200 ng/mL BARBITIURATES Normal NEGATIVE LAB L505.5035 < 200 ng/mL BENZODIAZIPINE Normal NEGATIVE LAB L505.5045 < 300 ng/mL COCAINE Normal NEGATIVE LAB L505.5055 < 500 ng/mL ECSTACY Normal NEGATIVE LAB L505.5065 < 300 ng/mL METHADONE Normal NEGATIVE LAB L505.5075 < 300 High ng/mL OPIATES POSITIVE LAB L505.5085 < 25 ng/mL PCP Normal NEGATIVE LAB L505.5095 < 50 ng/mL THC Normal NEGATIVE Performed By: #### L505.5000 #### [facility] [address] [place], [address] MISCELLANEOUS LAB Collected: 05/30/2017 Status: F Source: JEANNE PROCEDURE 12:55 PM [facility] REPOSITORY Order Comment: Test(s) Ordered: URINE TOXICOLOGY [id number] RUN LOWEST TEST TYPE CODE TESTS RESULT OUT OF RANGE REFERENCE UNITS LAB L801.1541 Normal [facility] LAB TEST Result Comment: [id number] 6+OXYCODONE-BUND (ng/mL) DRUG RESULT SCREEN CUTOFF ____ Amphetamines,Urine Negative ng/mL 1000 Amphetamine test includes Amphetamine and Methamphetamine. Barbiturates Negative ng/mL 200 Benzodiazepines Negative ng/mL 200 Cannabinoid Negative ng/mL 20 Cocaine (Metab) Negative ng/mL 300 Opiates POSITIVE ng/mL 300 Opiates test includes Codeine, Morphine, Hydromorphone, Hydrocodone. Codeine Negative 300 Morphine Negative 300 Hydromorphone Negative 300 Hydrocodone Positive Hydrocodone Confirm 862 ng/mL 300 Oxycodone/Oxymorphone,Urine Negative ng/mL 300 Test includes Oxydodone and Oxymorphone. TESTING PERFORMED AT [facility]. ORIGINAL REPORT ON FILE IN LAB CONTAINS ADDITIONAL TEST SITE INFORMATION. Performed By: #### L801.1541 #### [facility] [address] [place], [address] SCREENING MAMM (CAD), Observed: 05/17/2017 Status: F Source: [place] BIL 2:40 PM [facility] REPOSITORY [facility] Imaging Services [address] [place] [address] SCREENING MAMM (CAD), BILAT MR#: [id number] Acct: [id number] Name: DON STRONG Rep #: [id number] : 1945 F 71 From: Roe Sy MD PCP: Fadumo Mandel DO Status: REG CLI Study: SCREENING MAMM (CAD), BILAT Date of Exam: 05/17/17 Exam# [id number] Ordering Dr: Fadumo Mandel DO MAMMOGRAPHY - BILATERAL SCREENING REASON FOR EXAM: Female, 71 years old. Routine annual screening examination. PERTINENT HISTORY: Non-contributory. TECHNIQUE: Digital bilateral breast rogelio (3D mammographic acquisition) in the CC and MLO projections. 2-D mediolateral oblique (MLO) and craniocaudad (CC) views of both breasts were obtained. CAD: Full Field Digital Mammography with Computer Added Detection was performed. COMPARISON: Comparison is made with prior study dated March 24, 2016 and January 31, 2015. FINDINGS: Breast Composition: The breasts are almost entirely fatty. There are no dominant masses or suspicious calcifications. No other significant abnormalities are identified. There has been no significant change since the prior study. HPBI/SCREENING MAMM (CAD), BILAT IMPRESSION: Stable bilateral screening mammogram. Yearly follow-up mammogram recommended. (A) ASSESSMENT CATEGORY: BIRADS Category 1: Negative. A letter regarding these results will be sent to the patient by the facility within 30 days. Approximately 10% of breast cancers are not detected by mammography. A normal mammogram should not delay biopsy of a clinically suspicious abnormality. TH3011 Electronically Signed: Roe Sy MD at 8:31 EST Tel [phone], Service support , CC: Fadumo Mandel DO Group Therapist: Signed ALLERGIES ALLERGIES DATE TYPE / CODE NAME / CODE REACTION SEVERITY SOURCE 04/20/2018 Drug No Known Unknown [facility] Allergy/4160 Allergies/F00 Hospital 56242(SNOMED 5992748(RXNOR Repository CT) M) ENCOUNTERS ENCOUNTERS ADMIT/DISCHARGE ACCOUNT NUMBER ADMITTING ENCOUNTER LOCATION SOURCE CLASS 05/05/2018 [id number] Ambulatory Building:[facility] Repository 04/20/2018/04/22/19 [id number] [place], Ambulatory [place] [address] [address] [facility] ding:[id number] Repository : PF020Dlo: 1 04/20/2018 [id number] [facility], [facility]ulatory BMSBuilding: Jeanne Ghasem BMS.[facility] Repository 04/20/2018 [id number] [facility], Ambulatory BMSBuilding: Jeanne Ghasem BMS.[facility] Repository 04/20/2018 [id number] [place], Ambulatory BMSBuilding: Clyde Ghasem BMS.[facility] Repository 04/01/2018 [id number] Ambulatory [facility] ding:[facility] Repository 04/01/2018/04/01/20 [id number] Ambulatory BMSBuilding: Jeanne 18 BMS.[facility] Repository 02/11/2018 [id number] Ambulatory [facility] ding:HPRAD Repository 02/11/2018/02/12/20 [id number] Ambulatory BMSBuilding: Jeanne 18 [facility] Repository 12/17/2017 [id number] Ambulatory [facility] ding:HPRAD Repository 12/17/2017/12/18/19 [id number] Ambulatory BMSBuilding: Clyde 18 [facility] Repository 12/09/2017 [id number] Ambulatory [facility] ding:HPRAD Repository 12/05/2017 [id number] Ambulatory [facility] ding:[facility] Repository 10/29/2017 [id number] Ambulatory [facility] ding:HPRAD Repository 10/29/2017/10/30/19 [id number] Ambulatory BMSBuilding: Clyde 18 [facility] Repository 10/17/2017 [id number] Ambulatory Building:[facility] Repository 10/07/2017 [id number] Ambulatory Building:[facility] Repository 09/30/2017 [id number] Ambulatory Building:[facility] Repository 09/19/2017/10/26/19 [id number] Mello Brantley Inpatient [address] ding:TCURoom Repository : HWR30Lki: 1 09/13/2017/09/20/19 [id number] [place], Inpatient Building:[address] Encounter Room: [place] [address]Bed: A [facility] Repository 08/29/2017 [id number] Ambulatory Building:[facility] Repository 08/29/2017 [id number] Ambulatory Building:[facility] Repository 08/29/2017 [id number] Ambulatory Building:[facility] Repository 08/29/2017 [id number] Ambulatory Building:[facility] Repository 08/29/2017 [id number] Ambulatory [facility] Repository 08/29/2017 [id number] Ambulatory Building:[facility] Repository 07/30/2017 [id number] Ambulatory [facility] ding:MEDOUTP Repository 07/16/2017/07/17/19 [id number] Ambulatory BMSBuilding: Clyde 18 [facility] Repository 07/15/2017/07/16/19 [id number] Ambulatory [address] ding:NS Repository 07/08/2017/07/12/19 [id number] [place], Ambulatory [address] ding:[id number] Repository : LF685Fzy: 1 07/08/2017 [id number] [place], Ambulatory BMSBuilding: Jeanne Siobhan BMS.[facility] Repository 07/08/2017 [id number] [place], Ambulatory BMSBuilding: Clyde Siobhan BMS.[facility] Repository 07/08/2017 [id number] [place], Ambulatory BMSBuilding: Jeanne Siobhan BMS.[facility] Repository 07/08/2017 [id number] [place], Ambulatory BMSBuilding: Clyde Siobhan BMS.[facility] Repository 07/01/2017 [id number] Ambulatory [facility] ding:MEDOUTP Repository 06/10/2017/06/19/19 [id number] Ambulatory [address] ding:NS Repository 05/30/2017 [id number] Ambulatory [facility] ding:LAB Repository 05/20/2017/05/22/19 [id number] Ambulatory [address] ding:NS Repository 05/17/2017 [id number] Ambulatory [facility] ding:BI Repository FUNCTIONAL STATUS FUNCTIONAL STATUS No Functional Status Records FoundEQUIPMENT EQUIPMENT No Equipment Records FoundPAYERS PAYERS ENCOUNTER GUARANTOR PAYER SUBSCRIBER SOURCE 05/05/2018 Don Reddy Primary Don Reddy [place] Practices AndersonDOB: Insurance:Hum//Medica AndersonDOB: Repository [id number] re Adv PlanPolicy [id number] Ana Cristina [address]T Number: [address], [place] [id number] [place], [place] [address]Haa: (549) Date:6044-26-84Kmnn 20556Pac: () Name:[facility] [address] () [address] [place] [address] 437[address]KM: 05/05/2018 Secondary Don J OHIP Practices Insurance:Humana AndersonDOB: Repository Choice [facility] [id number] Number: Yasmeen YEBOAH [id number] [address] [place] [address] Date: - [address]Lva: 1157-21-07Emio ~(3 Name:[facility] [address] (HP) [address] [place], [place] [address]WP: 04/20/2018 ODN J Primary DON J Clyde [id number] Insurance:HUMANA ANDERSONDOB: Community ANA CRISTINA LNAPT MEDICARE [facility] [id number] Number: Repository [address]Tcp: 330 [id number] [phone] (HP) Date:2974-28-98RZ [address] [place] [address]NC: 04/20/2018 Secondary NOT GIVENUNK Clyde Insurance:SELF PAY [facility] Number: Effective Repository Date:2018-04-20 04/20/2018 DON J Primary ODN J Jeanne [id number] Insurance:HUMANA ANDERSONDOB: Community ANA CRISTINA LNAPT MEDICARE [facility] [id number] Number: Repository [address]Zft: 330 [id number] [phone] (HP) Date:5966-11-89BA [address] [address]ID: 04/20/2018 Secondary NOT GIVENUNK Cly[place] Insurance:SELF PAY [facility] Number: Effective Repository Date:2018-04-20 04/20/2018 DON J Primary DON J [place] [id number] Insurance:HUMANA ANDERSONDOB: Community ANA CRISTINA LNAPT MEDICARE [facility] [id number] Number: Repository [address]Xww: 330 [id number] [phone] (HP) Date:0285-69-08SX [address] [address]BU: 04/20/2018 Secondary NOT GIVENUNK Cly[place] Insurance:SELF PAY [facility] Number: Effective Repository Date:2018-04-20 04/20/2018 DON Reddy Primary DON Reddy Jeanne [id number] Insurance:HUMANA ANDERSONDOB: Community ANA CRISTINA LNAPT MEDICARE OPolicy [id number] Number: Repository [address]Sgn: 330 [id number] [phone] () Date:6597-14-90TM [address] [address]JU: 04/20/2018 Secondary NOT GIVENUNK [place] Insurance:SELF PAY [facility] Number: Effective Repository Date:2018-04-20 04/01/2018 DON Reddy Primary DON Reddy [place] [id number] Insurance:HUMANA ANDERSONDOB: Community ANA CRISTINA LNAPT MEDICARE [facility] [id number] [place] Number: Repository [address]Xnk: 330 [id number] [phone] (HP) Date:1862-40-01ZZ [address] [address]BF: 04/01/2018 Secondary NOT GIVENUNK Jeanne Insurance:SELF PAY [facility] Number: Effective Repository Date:2018-04-01 04/01/2018 DON Reddy Primary DON Reddy Cly[place] [id number] Insurance:HUMANA ANDERSONDOB: Community ANA CRISTINA LNAPT MEDICARE OPoly [id number] [place] Number: Repository [address]Nau: (330 [id number] [phone] (HP) Date:8729-93-52LK [address] [address]FH: 04/01/2018 Secondary NOT GIVENUNK Jeanne Insurance:SELF PAY [facility] Number: Effective Repository Date:2018-03-31 02/11/2018 DON Reddy Primary DON Reddy Jeanne [id number] Insurance:HUMANA ANDERSONDOB: Community ANA CRISTINA LNAPT MEDICARE [facility] [id number] [place] Number: Repository [address]Lei: (330) [id number] [phone] (HP) Date:7822-67-89YQ [address] [address]XK: 02/11/2018 Secondary NOT GIVENUNK Cly[place] Insurance:SELF PAY [facility] Number: Effective Repository Date:2018-02-11 02/11/2018 DON Reddy Primary DON Reddy [place] [id number] Insurance:HUMANA ANDERSONDOB: Community ANA CRISTINA LNAPT MEDICARE PPOPolicy [id number], [place] Number: Repository [address]Nlh: (330 [id number] [phone] (HP) Date:1128-98-72GO [address] [address]WL: 02/11/2018 Secondary NOT GIVENUNK Jeanne Insurance:SELF PAY [facility] Number: Effective Repository Date:2018-02-11 12/17/2017 DON J Primary DON J Cly[place] [id number] Insurance:HUMANA ANDERSONDOB: Community ANA CRISTINA LNAPT MEDICARE OPolicy [id number], [place] Number: Repository [address]Hit: (330) [id number] [phone] (HP) Date:2522-00-00JM [address] [address]MG: 12/17/2017 Secondary NOT GIVENUNK Jeanne Insurance:SELF PAY [facility] Number: Effective Repository Date:2017-12-17 12/17/2017 DON Reddy Primary DON Reddy [place] [id number] Insurance:HUMANA ANDERSONDOB: Community ANA CRISTINA LNAPT MEDICARE PPOPolicy [id number], [place] Number: Repository [address]Ela: (330 [id number] [phone] (HP) Date:6572-71-03YB [address] [address]UA: 12/17/2017 Secondary NOT GIVENUNK Jeanne Insurance:SELF PAY [facility] Number: Effective Repository Date:2017-12-17 12/09/2017 DON Reddy Primary DON Reddy Cly[place] [id number] Insurance:HUMANA ANDERSONDOB: Community ANA CRISTINA LNAPT MEDICARE PPOPolicy [id number] [place] Number: Repository [address]Hxa: (330 [id number] [phone] (HP) Date:5667-78-68OF [address] [address]UM: 12/09/2017 Secondary NOT GIVENUNK Jeanne Insurance:SELF PAY Community [facility] Number: Effective Repository Date:2017-12-09 12/05/2017 DON Reddy Primary DON Reddy [place] [id number] Insurance:HUMANA ANDERSONDOB: Community ANA CRISTINA LNAPT MEDICARE PPOPolicy [id number] [place] Number: Repository [address]Dtg: (330 [id number] [phone] (HP) Date:2624-16-19DV [address]46[address]WP: 12/05/2017 Secondary NOT GIVENUNK Cly[place] Insurance:SELF PAY [facility] Number: Effective Repository Date:2017-11-28 10/29/2017 DON Reddy Primary DON Reddy Jeanne [id number] Insurance:HUMANA ANDERSONDOB: Community ANA CRISTINA LNAPT MEDICARE PPOPolicy [id number] [place] Number: Repository [address]Hrc: (330 [id number] [phone] (HP) Date:4779-45-28AX [address] [address]OP: 10/29/2017 Secondary NOT GIVENUNK Cly[place] Insurance:SELF PAY [facility] Number: Effective Repository Date:2017-10-29 10/29/2017 DON Reddy Primary DON Reddy Jeanne [id number] Insurance:HUMANA ANDERSONDOB: Community ANA CRISTINA LNAPT MEDICARE PPOPolicy [id number] [place] Number: Repository [address]Cwe: (330 [id number] [phone] (HP) Date:0310-49-00KU [address], [place] [address]RO: 10/29/2017 Secondary NOT GIVENUNK Clyde Insurance:SELF PAY [facility] Number: Effective Repository Date:2017-10-03 10/17/2017 DON Barry Primary DON Barry [facility] ANDERSONDOB: Insurance:MEDICARE ANDERSONDOB: [facility] [id number] [facility] LNAPT Number: 6 [facility] LNAPT [address] [id number] [address] [place] [address] Repository [address]Hyj: (330) Date:8023-91-96Zurl [address]Gmr: () Name:[facility] [phone] () 10/07/2017 DON Barry JOSUEARA Barry [facility] ANDERSONDOB: Insurance:MEDICARE ANDERSONDOB: [facility] [id number] [place] [address] LNAPT Number: 6 [facility] LNAPT [address] [id number] [place], [place] Repository [address]Wmn: (330) Date:0037-91-38Itut [address]Mel: () Name:CARE [phone] () 09/30/2017 DON Barry JOSUEMIRYAM Reddy [facility] ANDERSONDOB: Insurance:MEDICARE ANDERSONDOB: [facility] [id number] [facility] LNAPT Number: 6 [facility] LNAPT [address] [id number] [address] [place] [address] Repository [address]Pcp: (330) Date:9180-20-71Diks [address]Fkc: () Name:CARE [phone] () 09/19/2017 DON Barry [place] [id number] Insurance:HUMANA ANDERSONDOB: [facility] LNAPT MEDICARE PPOPolicy [id number] Number: Repository [address]Pbi: 330 [id number] [phone] () Date:3099-68-81ML [address] [place] [address]OL: 09/19/2017 Secondary NOT GIVENUNK Jeanne Insurance:SELF PAY Community [facility] Number: Effective Repository Date:2017-09-19 09/13/2017 [facility] ANDERSONDOB: [facility] [id number] [facility] LNAPT Number: 6 [facility] LNAPT [address] [id number] [place], [place] Repository [address]Tad: (330) Date:8416-13-62Napb 29[address]Hpe: () Name:[facility] [phone] () 08/29/2017 DON [facility]: [facility]ARE ANDERSONDOB: [facility] [id number] [facility] LNAPT Number: 6 [facility] LNAPT [address] [id number] Repository [address]Har: (330) Date:5103-03-82Wzsz 689[address]Iuw: () Name:COREY [phone] () 08/29/2017 DON [facility]: [facility]ARE ANDERSONDOB: [facility] [id number] [facility] LNAPT Number: 6 [facility] LNAPT [address] [id number] [place], [place] Repository [address]Jhy: (330) Date:1685-54-89Pong 665[address]Job: () Name:COREY [phone] () 08/29/2017 DON Reddy [facility] ANDERSONDOB: Insurance:MEDICARE ANDERSONDOB: [facility] [id number] [facility] Medical ANA CRISTINA LNAPT Number: 6 ANA CRISTINA LNAPT Center [place] [id number] [place] Repository [address]Eyg: (330) Date:9335-87-83Wlld 780[address]Qce: (HP) Name:CARE [id number] () 08/29/2017 DON Reddy [facility] ANDERSONDOB: Insurance:MEDICARE ANDERSONDOB: [facility] [id number] [facility] ANA CRISTINA LNAPT Number: 6 ANA CRISTINA LNAPT [address], [place] [id number] [address], [place] Repository [address]Xpn: (330) Date:2550-37-75Qcxu [address]48[address]Cqy: (HP) Name:CARE [phone] () 08/29/2017 DON Reddy [facility] ANDERSONDOB: Insurance:MEDICARE ANDERSONDOB: [facility] [id number] [facility] ANA CRISTINA LNAPT Number: 6 ANA CRISTINA LNAPT [address], [place] [id number] [place] Repository [address]Cdo: (330) Date:9217-62-14Iupy 610[address]Dzq: () Name:CARE [phone] () 08/29/2017 DON Reddy [facility] ANDERSONDOB: Insurance:MEDICARE ANDERSONDOB: [facility] [id number] [facility] Medical ANA CRISTINA LNAPT Number: 6 ANA CRISTINA LNAPT [address], [place] [id number] [place] Repository [address]Ibs: (330) Date:9932-97-17Nfod 645[address]Wqq: () Name:[facility] [phone] () 07/30/2017 DON J Primary DON Reddy Cly[place] [id number] Insurance:HUMANA ANDERSONDOB: Community ANA CRISTINA LNAPT MEDICARE OPolicy [id number] Number: Repository [address]Jiy: [id number] [phone] Date:4425-60-51FW [address] () [address] [place] [address]SX: 07/30/2017 Secondary NOT GIVENUNK Cly[place] Insurance:SELF PAY [facility] Number: Effective Repository Date:2017-07-25 07/16/2017 DON Barry Primary DON Barry [place] [id number] Insurance:HUMANA ANDERSONDOB: Community ANA CRISTINA LNAPT MEDICARE OPoly [id number] [place] Number: Repository [address]Eqi: [id number] [phone] Date:1196-52-56QL [address] () [address] [place] [address]EH: 07/16/2017 Secondary NOT GIVENUNK Jeanne Insurance:SELF PAY [facility] Number: Effective Repository Date:2017-07-16 07/15/2017 DON Barry Primary DON Barry LlanosJeanne [id number] Insurance:HUMANA ANDERSONDOB: Community ANA CRISTINA LNAPT MEDICARE OPoly [id number] [place] Number: Repository [address]Jbw: [id number] [phone] Date:8374-49-10GZ [address] () [address] [place] [address]KY: 07/15/2017 Secondary NOT GIVENUNK [place] Insurance:SELF PAY [facility] Number: Effective Repository Date:2017-06-20 07/08/2017 DON Barry Primary DON Barry LlanosClyde [id number] Insurance:HUMANA ANDERSONDOB: Community ANA CRISTINA LNAPT MEDICARE [facility] [id number], [place] Number: Repository [address]Qzq: [id number] [phone] Date:9984-05-04RZ [address] (HP) [address] [place] [address]PM: 07/08/2017 Secondary NOT GIVENUNK [place] Insurance:SELF PAY Community [facility] Number: Effective Repository Date:2017-07-07 07/08/2017 DON Reddy Primary DON J Clyde [id number] Insurance:HUMANA ANDERSONDOB: Community ANA CRISTINA LNAPT MEDICARE PPOPolicy [id number] Number: Repository [address]Coe: [id number] [phone] Date:0845-07-46QD [address] (HP) [address] [place] [address]WB: 07/08/2017 Secondary NOT GIVENUNK Cly[place] Insurance:SELF PAY [facility] Number: Effective Repository Date:2017-07-08 07/08/2017 DON J Primary DON J Jeanne [id number] Insurance:HUMANA ANDERSONDOB: Community ANA CRISTINA LNAPT MEDICARE PPOPolicy [id number] Number: Repository [address]Kxh: [id number] [phone] Date:6071-22-83GM [address] (HP) [address] [place] [address]DU: 07/08/2017 Secondary NOT GIVENUNK Jeanne Insurance:SELF PAY Community [facility] Number: Effective Repository Date:2017-07-08 07/08/2017 DON Reddy Primary DON Reddy [place] [id number] Insurance:HUMANA ANDERSONDOB: Community ANA CRISTINA LNAPT MEDICARE PPOPolicy [id number] Number: Repository [address]Wbv: [id number] [phone] Date:3770-59-98WU [address] (HP) [id number] [place] [address]EA: 07/08/2017 Secondary NOT GIVENUNK Jeanne Insurance:SELF PAY Community [facility] Number: Effective Repository Date:2017-07-08 07/08/2017 DON Reddy Primary DON Reddy Jeanne [id number] Insurance:HUMANA ANDERSONDOB: Community ANA CRISTINA LNAPT MEDICARE [facility] [id number] [place] Number: Repository [address]Zwd: [id number] [phone] Date:8621-54-15GF [address] (HP) [address] [place], [place] [address]WP: 07/08/2017 Secondary NOT GIVENUNK Clyde Insurance:SELF PAY [facility] Hospital Number: Effective Repository Date:2017-07-08 07/01/2017 Don Reddy Primary Don Reddy Jeanne [id number] Insurance:HUMANA AndersonDOB: Community [address] MEDICARE [facility] [id number] [place] Number: Repository [phone]: [phone] [id number] [phone] (HP) Date:[id number] [address] [place] [address]WP: 07/01/2017 Secondary NOT GIVENUNK Jeanne Insurance:SELF PAY [facility] Number: Effective Repository Date:2017-06-21 06/10/2017 Don Reddy Primary Don Reddy Jeanne [id number] Insurance:HUMANA AndersonDOB: Community [address] MEDICARE [facility] [id number], [place] Number: Repository [phone]: [phone] [id number] [phone] (HP) Date:[id number] [address] [place] [id number]: 06/10/2017 Secondary NOT GIVENUNK Jeanne Insurance:SELF PAY [facility] Effective Repository Date:2017-05-23 05/30/2017 Don Reddy Primary Don Reddy Jeanne [id number] Insurance:HUMANA AndersonDOB: Community [address] [facility] [id number], [place] Number: Repository [id number]: ([phone] [id number] [phone] (HP) Date:[id number] [address] [place] [id number]: 05/30/2017 Secondary NOT GIVENUNK Jeanne Insurance:SELF PAY [facility] Number: Effective Repository Date:2017-05-30 05/20/2017 Don Reddy Primary Don Llanososter [id number] Insurance:HUMANA AndersonDOB: Community [address] MEDICARE [facility] [id number] [place] Number: Repository [phone]: 330 [id number] [phone] () Date:[id number] [address] [address]QH: 05/20/2017 Secondary NOT GIVENUNK Clyde Insurance:SELF PAY [facility] Number: Effective Repository Date:2017-05-01 05/17/2017 Don Reddy Primary Don Reddy Jeanne [id number] Insurance:HUMANA AndersonDOB: Community [address] MEDICARE [facility] [id number] [place] Number: Repository [phone]: 330 [id number] [phone] () Date:[id number] [address] [address]UZ: 05/17/2017 Secondary NOT GIVENUNK Jeanne Insurance:SELF PAY [facility] Number: Effective Repository Date:2017-05-09 SOCIAL HISTORY SOCIAL HISTORY No Social History Records FoundFAMILY HISTORY FAMILY HISTORY No Family History Records FoundADVANCE DIRECTIVES ADVANCE DIRECTIVES No Advanced Directives Records FoundINFORMATION SOURCE INFORMATION SOURCE DATE CREATED AUTHOR AUTHOR'S ORGANIZATION 05/14/2018 OHIP
== END ==
PROVIDERS: Family Provider Internal Medicine; PCP Internal Medicine; Referring Provider Orthopaedic Surgery; Visit Provider Orthopaedic Surgery
DX: Z98.1 Arthrodesis status (principal)
CPT/HCPCS: 72082

== ENCOUNTER 2018-04-20 12:46 | Observation (INO) | payer MEDICARE, SELFPAY ==
[2018-04-20] VITALS (12 sets, daily range): BP systolic 98–143; BP diastolic 56–98; PULSE 65–105; RESP 16–20; TEMP 36.1–38.4; O2SAT 89–100; BMI 51.0
--- NOTE | 2018-04-20 12:59 | RAD_ITS ---
STUDY: X-RAY CHEST REASON FOR EXAM: Female, 72 years old. Fever. TECHNIQUE: Single frontal view of the chest. COMPARISON: December 09, 2017 FINDINGS: There is low volume inspiration with bibasilar atelectasis. There is no demonstrated pleural abnormality. There is stable cardiomegaly. Normal mediastinum and graciela. Normal visualized pulmonary arteries. Normal visualized aortic arch and descending thoracic aorta. Normal visualized thoracic spine. There is a right total total shoulder arthroplasty and postsurgical changes in the thoracolumbar spine, unaltered. 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 There is no demonstrated abnormality of the visualized soft tissue structures of the upper abdomen. RAD/Chest 1 View (Portable) IMPRESSION: Stable appearance of the chest with no new or acute finding. Electronically Signed: James Scanlon MD at 14:58 EST , Service support ,
--- NOTE | 2018-04-20 12:59 | EKG12_ITS ---
Test Reason : SOB Blood Pressure : / mmHG Vent. Rate : 098 BPM Atrial Rate : 098 BPM P-R Int : 150 ms QRS Dur : 076 ms QT Int : 350 ms P-R-T Axes : 043 -05 022 degrees QTc Int : 446 ms Normal sinus rhythm Inferior infarct , age undetermined , cannot be excluded Cannot rule out Anterior infarct , age undetermined Abnormal ECG Confirmed by PIPPA CABALLERO, TIFFANY ([id number]), editor city [place] LEI ([id number]) on 04/23/2018 2:26:39 PM Referred By: PIO Confirmed By:TIFFANY DAS MD
[2018-04-20] MEDS: Ipratropium/Albuterol Sulfate 3 ML AMPUL.NEB INHALATION (13:13)
--- NOTE | 2018-04-20 13:15 | ED.DCSUM_ITS ---
- ER Visit Summary Date of Service: 04/20/18 Chief Complaint: Cough, fever, chill History of Present Illness: The patient is a 72 F's with history of psoriatic arthritis, hypertension, hyperlipidemia, diabetes presents to the emergency department with cough, fever, chills. Patient symptoms began about 4 days ago. She states he initially started with a mild headache and some generalized myalgias. Since then, she had worsening cough with productive sputum, fevers, chills. She states that she is felt more short of breath. She denies any underlying history of lung disease. She does not smoke. She is on Plaquenil for her history of psoriatic arthritis. She did get a flu shot this year. She states that she was having some difficulty breathing today. On squad arrival, the patient was hypoxic with oxygen saturations of 84% on room air. She has no history of oxygen dependence. Physical Examination: Vital signs reviewed General: Well-nourished, well-developed Head: Normocephalic, atraumatic Eyes: Pupils equal and reactive, extraocular muscles intact Neck, supple, no lymphadenopathy Heart: Regular rate and rhythm Respiratory: No distress, wheezing with focal change in lung sounds in the left base Abdomen: Soft, nontender, nondistended, no peritoneal signs Back: Nontender Extremities: Nontender, no edema, no cords Skin: Normal color no rash Neuro: Alert and oriented, no focal or lateralizing deficits Test Results: [] Emergency Department Course and Treatment: The patient's symptoms do seem consistent with influenza. However, she does have focal change in lung sounds in the left base and productive sputum. She was also hypoxic. Sepsis workup was pursued. CBC, chemistry, lactate, and chest x-ray are all unremarkable. The patient was given fluids and Tylenol. Her influenza was positive. She was also given a DuoNeb treatment but still has persistent bronchospasm. The patient does have influenza and is oxygen dependent. At this time, I do feel that she is going require admission for continued respiratory care. The patient was started on Tamiflu. She was discussed with the hospitalist and will be admitted. Treatment Plan: [] Disposition: Admission Impression: 1. Influenza 2. Hypoxia This note was generated with [employer] software. It may contain incorrect words, spelling, and punctuation that were not noted in review of the chart prior to signing ED Disposition - Plan for ED Patient: Disposition: Acute Care Hospital [facility] Chief Complaint: Shortness of Breath
[2018-04-20] MEDS: 0.9% Normal Saline 1,000 ML 150 ML IV (13:17)
[2018-04-20] MEDS: Acetaminophen 500 MG Tablet 1000 MG PO (13:17)
[2018-04-20 13:33] LABS: Absolute Lymphocyte Count 0.95 X10^3/ul (0.83-4.51); Basophil# 0.04 X10^3/uL; Basophil% 0.5 % (0-1); Eosinophil# 0.05 X10^3/uL; Eosinophils% 0.7 % (0-5); Hematocrit 39.1 % (37-47); Hemoglobin 11.7 g/dl (12.0-15.0); Lymphocyte # 0.95 X10^3/ul (4.0); Lymphocyte % 12.5 % (19-41); Mean Corp Hgb Conc 29.9 g/gl (32-36); Mean Corpuscular Hgb 24.5 pg (27.0-32.0); Mean Corpuscular Volume 81.8 fL (81-99); Mean Platelet Vol. 9.2 fl (6.2-12.0); Monocyte% 7.9 % (0-10); Neutrophil # 5.95 X10^3/uL (2.7-7.7); Neutrophil % 78.1 % (47-70); POSITIVE COUNT NO; POSITIVE DIFFERENTIAL NO; POSITIVE MORPHOLOGY NO; Platelet Count 248 K/mm3 (150-450); RBC Distribution Width CV 16.4 % (11.6-14.6); RBC Distribution Width SD 49.9 fl (35.1-43.9); Red Blood Count 4.78 M/mm3 (4.2-5.4); White Blood Count 7.6 K/mm3 (4.4-11.0)
[2018-04-20 13:46] LABS: ALB/GLOB Ratio 0.6 RATIO (0.9-2.4); AST(SGOT) 33 U/L (15-37); Alanine Aminotransfer ALT/SGPT 17 U/L (13-56); Albumin, Serum 2.9 g/dL (3.2-5.0); Alkaline Phosphatase 109 U/L (45-117); Anion Gap 7 (5-15); BUN 12 mg/dL (7-18); BUN/Creat Ratio 12.5 RATIO (10-20); Calcium,Total 8.2 mg/dL (8.5-10.1); Chloride 101 mmol/L (98-107); Creatinine, Serum 0.96 mg/dL (0.55-1.02); EST Glomerular Filtration Rate 61 mL/min (>60); Est Glom Filt Rate - Afr Amer 73 mL/min (>60); Estimated Creatinine Clearance 39.97 ml/min; Globulin 4.5 g/dL (2.2-4.2); Glucose 105 mg/dL (74-106); Potassium 4.2 mmol/L (3.5-5.1); Protein, Total 7.4 g/dL (6.4-8.2); Sodium Level 135 mmol/L (136-145)
--- NOTE | 2018-04-20 13:47 | ED.RN ---
FLU A POS CALLED FROM THE LAB. DR HOOVER AWARE
[2018-04-20 13:52] LABS: Lactic Acid 0.9 mmol/L (0.4-2.0)
[2018-04-20 14:11] LABS: Bacteria 0 SEEN /hpf (None Seen)
[2018-04-20 14:21] LABS: International Normalized Ratio 1.1; Partial Thromboplast Time 28.6 Seconds (24.1-36.2); Prothrombin Time (Protime)PT. 14.1 SECONDS (11.7-14.9)
[2018-04-20 14:35] LABS: Color, Urine Yellow (Yellow); Glucose, Dipstick Normal (Normal); Ketone-Dipstick 50 mg/dl (Negative); Leukocyte Esterase-Dipstick 25 /ul (Negative); Nitrite-Dipstick Negative (Negative); Occult Blood-Urine 150 /ul (Negative); Protein-Dipstick 30 mg/dl (Negative); Specific Gravity, Urine 1.025 (1.002-1.030); Urine Bilirubin Dipstick Negative (Negative); Urine Clarity Clear (Clear); Urine Urobilinogen 1 mg/dl (Normal)
[2018-04-20 14:42] LABS: Mucous, Urine 2+ /hpf (<or=2+); Red Blood Cells-Urine 0-5 SEEN /hpf (0-5); Squamous Epithelial Cells - UA 0-5 SEEN /hpf (5-10); White Blood Cells 0-5 SEEN /hpf (0-5)
--- NOTE | 2018-04-20 14:49 | ED.RN ---
called radiology to see check about xrays results.
[2018-04-20] MEDS: Oseltamivir Phosphate 75 MG Capsule PO (15:35)
--- NOTE | 2018-04-20 16:00 | PCM.HP.STD ---
Problem List (1) Fibromyalgia Status: Chronic (2) IBS (irritable bowel syndrome) Status: Chronic Qualifiers: (3) Depression Status: Chronic (4) Rheumatoid arthritis Status: Chronic (5) Restless leg syndrome Status: Chronic (6) Obstructive sleep apnea Status: Chronic (7) Peripheral neuropathy Status: Chronic Qualifiers: (8) Hypothyroidism Status: Chronic Qualifiers: (9) Psoriatic arthritis Status: Chronic (10) Type 2 diabetes mellitus Status: Chronic Qualifiers: (11) Hypertension Status: Chronic Qualifiers: History of Present Illness Date of Admission: 04/20/18 Chief Complaint: Shortness of breath, cough and fever. The patient is a 72 year old F with past medical history as mentioned above presented to the emergency room because of shortness of breath, productive cough and fever. Her symptoms started 3 days ago with shortness of breath at rest, aggravated by minimal activity, associated with productive cough with moderate amount of yellow sputum as well as fever of up to 102.4 Fahrenheit and wheezing and without relieving factors. She reported associated sore throat and audible wheezing according to the patient. She denied chest pain, palpitation, dizziness or lightheadedness. Reportedly, her pulse ox was 84% on room air when the squad arrived at her house. In the emergency department, she was febrile, blood pressure was stable, pulse ox was 96% on 3 L. She never been on oxygen at home, non-smoker and never been diagnosed with COPD or asthma. Her routine blood work was remarkable for hemoglobin of 11.7 g/dL, otherwise normal. LFT was normal. Lactic acid was normal as well. Urinalysis revealed no evidence of acute cystitis. Chest x-ray showed no acute infiltrate, consolidation or effusion. Nasal swab for influenza came back positive for influenza A. Patient was given DuoNeb nebulizer but her pulse ox remained low without oxygen. She is being admitted for acute bronchitis probably due to influenza A and complicated by hypoxia. Past Medical History Past Medical History (Chronic Problems): Chronic Problems Morbid obesity (Chronic) Fibromyalgia (Chronic) IBS (irritable bowel syndrome) (Chronic) Lumbar spinal stenosis (Chronic) Depression (Chronic) Rheumatoid arthritis (Chronic) Insomnia (Chronic) Diabetes mellitus (Chronic) GERD (gastroesophageal reflux disease) (Chronic) Restless leg syndrome (Chronic) Obstructive sleep apnea (Chronic) Peripheral neuropathy (Chronic) Hypothyroidism (Chronic) Chronic low back pain (Chronic) Psoriatic arthritis (Chronic) Type 2 diabetes mellitus (Chronic) Hypertension (Chronic) Allergies No Known Allergies Allergy (Verified 04/20/18 12:47) Home Medications: Ambulatory Orders Medication Instructions Recorded Atenolol [Tenormin (beta rema)] 50 mg PO DAILY 02/20/13 Hydroxychloroquine [Plaquenil] 200 mg PO BIDCM 02/20/13 Ropinirole HCl [Requip] 2 mg PO QHS PRN PRN 02/20/13 Gabapentin 400 mg PO 5X/DAY 05/05/13 Cyclobenzaprine [Flexeril] 10 mg PO TID PRN PRN 08/24/13 Multivitamins,Therapeutic 1 tablet PO DAILY 08/24/13 [Multivitamin] Duloxetine Hcl [Cymbalta] 30 mg PO DAILY 05/10/15 Levothyroxine [Synthroid] 50 mcg PO DAILY 01/23/16 Lansoprazole [Prevacid] 30 mg PO BID 08/21/16 Calcium Carb/Vitamin D [Os-Lito 1 tablet PO BIDCM tablet 10/17/17 500MG + D] Metformin(XR) [Glucophage Xr] 500 mg PO DAILY 04/20/18 Surgical History: Surgical History (Last Updated 10/29/17 @ 15:57 by Felicitas Bahena) H/O lumbosacral spine surgery Z98.890 09/13/17 Surgical History: cholecystectomy, hysterectomy, total knee arthroplasty - BL TKR., - - R Reverse Shoulder replacement. Psychiatric History: Depression MANAGER OF INTERNAL History: No pertinent MANAGER OF INTERNAL history Lives: Alone Smoking Status: Never smoker Alcohol: None Drugs: None - *Family History Maternal History Items: No pertinent history Paternal History Items: Diabetes, Heart Disease Review of Systems Constitutional: Reports: Anorexia, Chills, Fever, Malaise, Weakness Eyes: Denies: Blurred vision, Double vision, Drainage, Redness HEENT: Denies: Difficulty Hearing, Ear Pain, Eye Pain, Nasal Congestion, Sore Throat Cardiovascular: Denies: Chest Pain, Chest Pressure, Edema, Light Headedness, Palpitations, Syncope Respiratory: Reports: Cough, Shortness of Breath, Shortness of breath at rest, Sputum production, Wheezing Gastrointestinal: Denies: Abdominal Pain, Constipation, Diarrhea, Nausea, Vomiting Genitourinary: Denies: Dysuria, Frequency, Hematuria Musculoskeletal: Denies: Arm Pain, Back Pain, Foot Pain Skin: Denies: Dryness, Rash Neurological: Denies: Balance problems, Double vision, Change in Speech, Slurred speech, Confusion, Headaches, Numbness Psychiatric: Reports: Depression. Denies: Anxiety VTE Information - Inpt Only VTE Present on Admission: No VTE Mechan Device Prophylaxis: None VTE Pharm Prophylaxis ordered?: Yes - Physical Exam General: Alert, Oriented x3, Cooperative, - - Audible wheezing, minimally short of breath. HEENT: Atraumatic, PERRLA, EOMI, Normocephalic Oral: Moist Mucosa, No Gingival or Mucosal Lesions/ Ulcerations Neck: Supple, No JVD, Negative Carotid Bruits, Trachea Midline, Thyroid Normal Size and Texture Lungs: No rales, Diminished, Rhonchi, Short of Breath, Wheezes, - - Decreased breath sounds bilateral, bilateral expiratory wheezes. Cardiovascular: Regular rate, Regular Rhythm, Normal S1, Normal S2, PMI Normal Abdomen: Bowel Sounds Present, Soft, Non Tender, Non-Distended, No Hepato-splenomegaly, Obese Extremities: No clubbing, No cyanosis, No edema Skin: No rashes, No breakdown Lymphatic: No Cervical, Supraclavicular, or Inguinal Adenopathy Neurological: Cranial nerves II-XII grossly intact, Motor Exam 5/5 strength throughout Psych/Mental Status: Normal Affect, Appropriate, Alert and oriented to time, place, person, mood and affect Vital Signs Temp Pulse Resp BP Pulse Ox 98.5 F 83 17 103/56 L 96 04/20/18 14:55 04/20/18 14:55 04/20/18 14:55 04/20/18 14:55 04/20/18 14:55 Oxygen Flow Rate (L/min) 3 Oxygen Delivery Method Nasal Cannula Weight: 270 lb Body Mass Index (BMI) 51.0 Finger Stick Blood Glucose 164 Microbiology Past 72 Hours 04/20/18 13:08 Influenza Types A,B Direct FA (AL) - Final Mucosa - Nose Influenzae A Laboratory Tests Past 24 Hrs 04/20/18 04/20/18 04/20/18 13:20 13:20 13:20 WBC 7.6 RBC 4.78 Hgb 11.7 L Hct 39.1 MCV 81.8 MCH 24.5 L MCHC 29.9 L RDW 16.4 H RDW Differential 49.9 H Plt Count 248 MPV 9.2 Immature Gran % (Auto) 0.300 Neut % (Auto) 78.1 H Lymph % (Auto) 12.5 L [place] % (Auto) 7.9 Eos % (Auto) 0.7 Baso % (Auto) 0.5 Absolute Neuts (auto) 6.0 Absolute Lymphs (auto) 0.95 Total Counted Not Reportable PT Cancelled INR Cancelled APTT Cancelled Sodium 135 L Potassium 4.2 Chloride 101 Carbon Dioxide 27.0 Anion Gap 7 BUN 12 Creatinine 0.96 Estim Creat Clear Calc 39.97 Est GFR (MDRD) Af Amer 73 Est GFR (MDRD) Non-Af 61 BUN/Creatinine Ratio 12.5 Glucose 105 Lactic Acid Calcium 8.2 L Total Bilirubin 0.50 AST 33 ALT 17 Alkaline Phosphatase 109 Total Protein 7.4 Albumin 2.9 L Globulin 4.5 H Albumin/Globulin Ratio 0.6 L Urine Color Urine Clarity Urine pH Ur Specific [place] Urine Protein Urine Glucose (UA) Urine Ketones Urine Occult Blood Urine Nitrite Urine Bilirubin Urine Urobilinogen Ur Leukocyte Esterase Urine RBC Urine WBC Ur Squamous Epith Cells Urine Bacteria Urine Mucus 04/20/18 04/20/18 04/20/18 13:20 14:00 14:08 WBC RBC Hgb Hct MCV MCH MCHC RDW RDW Differential Plt Count MPV Immature Gran % (Auto) Neut % (Auto) Lymph % (Auto) [place] % (Auto) Eos % (Auto) Baso % (Auto) Absolute Neuts (auto) Absolute Lymphs (auto) Total Counted PT 14.1 INR 1.1 APTT 28.6 Sodium Potassium Chloride Carbon Dioxide Anion Gap BUN Creatinine Estim Creat Clear Calc Est GFR (MDRD) Af Amer Est GFR (MDRD) Non-Af BUN/Creatinine Ratio Glucose Lactic Acid 0.9 Calcium Total Bilirubin AST ALT Alkaline Phosphatase Total Protein Albumin Globulin Albumin/Globulin Ratio Urine Color Yellow Urine Clarity Clear Urine pH 5.0 Ur Specific [place] 1.025 Urine Protein 30 H Urine Glucose (UA) Normal Urine Ketones 50 H Urine Occult Blood 150 H Urine Nitrite Negative Urine Bilirubin Negative Urine Urobilinogen 1 H Ur Leukocyte Esterase 25 H Urine RBC 0-5 SEEN Urine WBC 0-5 SEEN Ur Squamous Epith Cells 0-5 SEEN Urine Bacteria 0 SEEN Urine Mucus 2+ Clinical Impression(s) from Imaging Studies Chest X-Ray 04/20/18 12:59 IMPRESSION: Stable appearance of the chest with no new or acute finding. Electronically Signed: James Scanlon MD at 14:58 EST , Service support , Assessment/Plan This is a 72 years old female patient presented to the ED because of 3 days history of shortness of breath, fever, cough and wheezing and was found to have acute bronchitis triggered by influenza A and complicated by hypoxia and she is being admitted for treatment. #1 acute bronchitis/influenza A: This is based on symptoms of productive cough with yellow sputum, fever, wheezing and chest x-ray without evidence of acute infiltrate or consolidation. EKG revealed no acute ischemic changes. Lactic acid was normal. Blood and urine culture sent. She has been febrile. Plan: Admit to [facility] for observation, albuterol every 4 hours, Tamiflu twice daily, start empiric IV Levaquin because of purulent yellow sputum, sputum culture, incentive spirometer, Robitussin-AC as needed, Tylenol as needed, chest physiotherapy, repeat CBC and BMP tomorrow morning, follow blood and urine cultures, PT OT evaluation and treatment. #2 hypoxia: Secondary to acute bronchitis with bronchospasm. Patient never smoked, never been diagnosed with COPD or asthma. At home, pulse ox was 84% on room air according to the squad. She received DuoNeb in the ER, pulse ox remained low and she needed oxygen up to 3 L. Plan: Bronchodilators, antibiotics, incentive spirometer, oxygen by nasal cannula to keep O2 saturation more than 92%, wean off oxygen as tolerated. #3 type 2 diabetes mellitus: ADA diet, Accu-Cheks, insulin sliding scale, continue metformin. #4 hypertension: Blood pressure stable, continue atenolol. #5 hypothyroidism: Continue levothyroxine. #6 rheumatoid arthritis/psoriatic arthritis: Continue Flexeril, gabapentin and Plaquenil. #7 DVT prophylaxis: Subcu Lovenox. Other chronic medical problems: Stable, continue home medications. #1 fibromyalgia. #2 irritable bowel syndrome. #3 restless leg syndrome. #4 GERD. #5 chronic back pain/peripheral neuropathy. #6 obstructive sleep apnea. This note was generated with [employer] software. It may contain incorrect words, spelling, and punctuation that were not noted in checking the note before signing. Code Visit OBSV E&M: 72959 Initial observation care L3
--- NOTE | 2018-04-20 16:04 | HP.PCM_ITS ---
Problem List (1) Fibromyalgia Status: Chronic (2) IBS (irritable bowel syndrome) Status: Chronic Qualifiers: (3) Depression Status: Chronic (4) Rheumatoid arthritis Status: Chronic (5) Restless leg syndrome Status: Chronic (6) Obstructive sleep apnea Status: Chronic (7) Peripheral neuropathy Status: Chronic Qualifiers: (8) Hypothyroidism Status: Chronic Qualifiers: (9) Psoriatic arthritis Status: Chronic (10) Type 2 diabetes mellitus Status: Chronic Qualifiers: (11) Hypertension Status: Chronic Qualifiers: History of Present Illness Date of Admission: 04/20/18 Chief Complaint: Shortness of breath, cough and fever. The patient is a 72 year old F with past medical history as mentioned above presented to the emergency room because of shortness of breath, productive cough and fever. Her symptoms started 3 days ago with shortness of breath at rest, aggravated by minimal activity, associated with productive cough with moderate amount of yellow sputum as well as fever of up to 102.4 Fahrenheit and wheezing and without relieving factors. She reported associated sore throat and audible wheezing according to the patient. She denied chest pain, palpitation, dizziness or lightheadedness. Reportedly, her pulse ox was 84% on room air when the squad arrived at her house. In the emergency department, she was febrile, blood pressure was stable, pulse ox was 96% on 3 L. She never been on oxygen at home, non-smoker and never been diagnosed with COPD or asthma. Her routine blood work was remarkable for hemoglobin of 11.7 g/dL, otherwise normal. LFT was normal. Lactic acid was normal as well. Urinalysis revealed no evidence of acute cystitis. Chest x-ray showed no acute infiltrate, consolidation or effusion. Nasal swab for influenza came back positive for influenza A. Patient was given DuoNeb nebulizer but her pulse ox remained low without oxygen. She is being admitted for acute bronchitis probably due to influenza A and complicated by hypoxia. Past Medical History Past Medical History (Chronic Problems): Chronic Problems Morbid obesity (Chronic) Fibromyalgia (Chronic) IBS (irritable bowel syndrome) (Chronic) Lumbar spinal stenosis (Chronic) Depression (Chronic) Rheumatoid arthritis (Chronic) Insomnia (Chronic) Diabetes mellitus (Chronic) GERD (gastroesophageal reflux disease) (Chronic) Restless leg syndrome (Chronic) Obstructive sleep apnea (Chronic) Peripheral neuropathy (Chronic) Hypothyroidism (Chronic) Chronic low back pain (Chronic) Psoriatic arthritis (Chronic) Type 2 diabetes mellitus (Chronic) Hypertension (Chronic) Allergies No Known Allergies Allergy (Verified 04/20/18 12:47) Home Medications: Ambulatory Orders Medication Instructions Recorded Atenolol [Tenormin (beta rema)] 50 mg PO DAILY 02/20/13 Hydroxychloroquine [Plaquenil] 200 mg PO BIDCM 02/20/13 Ropinirole HCl [Requip] 2 mg PO QHS PRN PRN 02/20/13 Gabapentin 400 mg PO 5X/DAY 05/05/13 Cyclobenzaprine [Flexeril] 10 mg PO TID PRN PRN 08/24/13 Multivitamins,Therapeutic 1 tablet PO DAILY 08/24/13 [Multivitamin] Duloxetine Hcl [Cymbalta] 30 mg PO DAILY 05/10/15 Levothyroxine [Synthroid] 50 mcg PO DAILY 01/23/16 Lansoprazole [Prevacid] 30 mg PO BID 08/21/16 Calcium Carb/Vitamin D [Os-Lito 1 tablet PO BIDCM tablet 10/17/17 500MG + D] Metformin(XR) [Glucophage Xr] 500 mg PO DAILY 04/20/18 Surgical History: Surgical History (Last Updated 10/29/17 @ 15:57 by Felicitas Bahena) H/O lumbosacral spine surgery Z98.890 09/13/17 Surgical History: cholecystectomy, hysterectomy, total knee arthroplasty - BL TKR., - - R Reverse Shoulder replacement. Psychiatric History: Depression [employer] History: No pertinent [employer] history Lives: Alone Smoking Status: Never smoker Alcohol: None Drugs: None - *Family History Maternal History Items: No pertinent history Paternal History Items: Diabetes, Heart Disease Review of Systems Constitutional: Reports: Anorexia, Chills, Fever, Malaise, Weakness Eyes: Denies: Blurred vision, Double vision, Drainage, Redness HEENT: Denies: Difficulty Hearing, Ear Pain, Eye Pain, Nasal Congestion, Sore Throat Cardiovascular: Denies: Chest Pain, Chest Pressure, Edema, Light Headedness, Palpitations, Syncope Respiratory: Reports: Cough, Shortness of Breath, Shortness of breath at rest, Sputum production, Wheezing Gastrointestinal: Denies: Abdominal Pain, Constipation, Diarrhea, Nausea, Vomit ing Genitourinary: Denies: Dysuria, Frequency, Hematuria Musculoskeletal: Denies: Arm Pain, Back Pain, Foot Pain Skin: Denies: Dryness, Rash Neurological: Denies: Balance problems, Double vision, Change in Speech, Slurred speech, Confusion, Headaches, Numbness Psychiatric: Reports: Depression. Denies: Anxiety VTE Information - Inpt Only VTE Present on Admission: No VTE Mechan Device Prophylaxis: None VTE Pharm Prophylaxis ordered?: Yes - Physical Exam General: Alert, Oriented x3, Cooperative, - - Audible wheezing, minimally short of breath. HEENT: Atraumatic, PERRLA, EOMI, Normocephalic Oral: Moist Mucosa, No Gingival or Mucosal Lesions/ Ulcerations Neck: Supple, No JVD, Negative Carotid Bruits, Trachea Midline, Thyroid Normal Size and Texture Lungs: No rales, Diminished, Rhonchi, Short of Breath, Wheezes, - - Decreased breath sounds bilateral, bilateral expiratory wheezes. Cardiovascular: Regular rate, Regular Rhythm, Normal S1, Normal S2, PMI Normal Abdomen: Bowel Sounds Present, Soft, Non Tender, Non-Distended, No Hepato- splenomegaly, Obese Extremities: No clubbing, No cyanosis, No edema Skin: No rashes, No breakdown Lymphatic: No Cervical, Supraclavicular, or Inguinal Adenopathy Neurological: Cranial nerves II-XII grossly intact, Motor Exam 5/5 strength throughout Psych/Mental Status: Normal Affect, Appropriate, Alert and oriented to time, place, person, mood and affect Vital Signs Temp Pulse Resp BP Pulse Ox 98.5 F 83 17 103/56 L 96 04/20/18 14:55 04/20/18 14:55 04/20/18 14:55 04/20/18 14:55 04/20/18 14:55 Oxygen Flow Rate (L/min) 3 Oxygen Delivery Method Nasal Cannula Weight: 270 lb Body Mass Index (BMI) 51.0 Finger Stick Blood Glucose 164 Microbiology Past 72 Hours 04/20/18 13:08 Influenza Types A,B Direct FA (AL) - Final Mucosa - Nose Influenzae A Laboratory Tests Past 24 Hrs 04/20/18 04/20/18 04/20/18 13:20 13:20 13:20 WBC 7.6 RBC 4.78 Hgb 11.7 L Hct 39.1 MCV 81.8 MCH 24.5 L MCHC 29.9 L RDW 16.4 H RDW Differential 49.9 H Plt Count 248 MPV 9.2 Immature Gran % (Auto) 0.300 Neut % (Auto) 78.1 H Lymph % (Auto) 12.5 L [place] % (Auto) 7.9 Eos % (Auto) 0.7 Baso % (Auto) 0.5 Absolute Neuts (auto) 6.0 Absolute Lymphs (auto) 0.95 Total Counted Not Reportable PT Cancelled INR Cancelled APTT Cancelled Sodium 135 L Potassium 4.2 Chloride 101 Carbon Dioxide 27.0 Anion Gap 7 BUN 12 Creatinine 0.96 Estim Creat Clear Calc 39.97 Est GFR (MDRD) Af Amer 73 Est GFR (MDRD) Non-Af 61 BUN/Creatinine Ratio 12.5 Glucose 105 Lactic Acid Calcium 8.2 L Total Bilirubin 0.50 AST 33 ALT 17 Alkaline Phosphatase 109 Total Protein 7.4 Albumin 2.9 L Globulin 4.5 H Albumin/Globulin Ratio 0.6 L Urine Color Urine Clarity Urine pH Ur Specific [place] Urine Protein Urine Glucose (UA) Urine Ketones Urine Occult Blood Urine Nitrite Urine Bilirubin Urine Urobilinogen Ur Leukocyte Esterase Urine RBC Urine WBC Ur Squamous Epith Cells Urine Bacteria Urine Mucus 04/20/18 04/20/18 04/20/18 13:20 14:00 14:08 WBC RBC Hgb Hct MCV MCH MCHC RDW RDW Differential Plt Count MPV Immature Gran % (Auto) Neut % (Auto) Lymph % (Auto) [place] % (Auto) Eos % (Auto) Baso % (Auto) Absolute Neuts (auto) Absolute Lymphs (auto) Total Counted PT 14.1 INR 1.1 APTT 28.6 Sodium Potassium Chloride Carbon Dioxide Anion Gap BUN Creatinine Estim Creat Clear Calc Est GFR (MDRD) Af Amer Est GFR (MDRD) Non-Af BUN/Creatinine Ratio Glucose Lactic Acid 0.9 Calcium Total Bilirubin AST ALT Alkaline Phosphatase Total Protein Albumin Globulin Albumin/Globulin Ratio Urine Color Yellow Urine Clarity Clear Urine pH 5.0 Ur Specific [place] 1.025 Urine Protein 30 H Urine Glucose (UA) Normal Urine Ketones 50 H Urine Occult Blood 150 H Urine Nitrite Negative Urine Bilirubin Negative Urine Urobilinogen 1 H Ur Leukocyte Esterase 25 H Urine RBC 0-5 SEEN Urine WBC 0-5 SEEN Ur Squamous Epith Cells 0-5 SEEN Urine Bacteria 0 SEEN Urine Mucus 2+ Clinical Impression(s) from Imaging Studies Chest X-Ray 04/20/18 12:59 IMPRESSION: Stable appearance of the chest with no new or acute finding. Electronically Signed: James Scanlon MD at 14:58 EST , Service support , Assessment/Plan This is a 72 years old female patient presented to the ED because of 3 days history of shortness of breath, fever, cough and wheezing and was found to have acute bronchitis triggered by influenza A and complicated by hypoxia and she is being admitted for treatment. #1 acute bronchitis/influenza A: This is based on symptoms of productive cough with yellow sputum, fever, wheezing and chest x-ray without evidence of acute infiltrate or consolidation. EKG revealed no acute ischemic changes. Lactic ac id was normal. Blood and urine culture sent. She has been febrile. Plan: Admit to [facility] for observation, albuterol every 4 hours, Tamiflu twice daily, start empiric IV Levaquin because of purulent yellow sputum, sputum culture, incentive spirometer, Robitussin-AC as needed, Tylenol as needed, chest physiotherapy, repeat CBC and BMP tomorrow morning, follow blood and urine cultures, PT OT evaluation and treatment. #2 hypoxia: Secondary to acute bronchitis with bronchospasm. Patient never smoked, never been diagnosed with COPD or asthma. At home, pulse ox was 84% on room air according to the squad. She received DuoNeb in the ER, pulse ox remained low and she needed oxygen up to 3 L. Plan: Bronchodilators, antibiotics, incentive spirometer, oxygen by nasal cannula to keep O2 saturation more than 92%, wean off oxygen as tolerated. #3 type 2 diabetes mellitus: ADA diet, Accu-Cheks, insulin sliding scale, continue metformin. #4 hypertension: Blood pressure stable, continue atenolol. #5 hypothyroidism: Continue levothyroxine. #6 rheumatoid arthritis/psoriatic arthritis: Continue Flexeril, gabapentin and Plaquenil. #7 DVT prophylaxis: Subcu Lovenox. Other chronic medical problems: Stable, continue home medications. #1 fibromyalgia. #2 irritable bowel syndrome. #3 restless leg syndrome. #4 GERD. #5 chronic back pain/peripheral neuropathy. #6 obstructive sleep apnea. This note was generated with [employer] software. It may contain incorrect words, spelling, and punctuation that were not noted in checking the note before signing. Code Visit OBSV E&M: 79146 Initial observation care L3
[2018-04-20 17:40] LABS: Bedside Glucose 89 mg/dL (70-110)
[2018-04-20] MEDS: Calcium Carb/Vitamin D 1 TABLET Tablet PO (18:26)
[2018-04-20] MEDS: levoFLOXacin IV 500 MG/100 ML BAG 100 MG IV (18:26)
[2018-04-20] MEDS: Hydroxychloroquine 200 MG Tablet PO (18:26)
[2018-04-20] MEDS: Gabapentin 400 MG Capsule PO ×2 (18:34→21:49)
[2018-04-20] MEDS: 0.9% Normal Saline 1,000 ML 100 ML IV (18:36)
[2018-04-20] MEDS: Albuterol 2.5 MG/3 ML VIAL.NEB. INHALATION ×2 (19:24→23:27)
[2018-04-20] MEDS: Pramipexole Di-HCl 1 MG Tablet PO (20:19)
[2018-04-20] MEDS: Pantoprazole Sodium 40 MG Tablet PO (21:49)
[2018-04-20] MEDS: Oseltamivir Phosphate 30 MG Capsule PO (21:52)
[2018-04-21] VITALS (12 sets, daily range): BP systolic 115–162; BP diastolic 64–79; PULSE 54–81; RESP 18–22; TEMP 36.6–38.1; O2SAT 92–100
[2018-04-21 01:21] LABS: Bedside Glucose 102 mg/dL (70-110)
[2018-04-21] MEDS: Albuterol 2.5 MG/3 ML VIAL.NEB. INHALATION ×5 (03:45→19:48)
[2018-04-21] MEDS: Acetaminophen 325 MG Tablet 650 MG PO (04:21)
[2018-04-21 05:58] LABS: Anion Gap 8 (5-15); BUN 12 mg/dL (7-18); BUN/Creat Ratio 16.9 RATIO (10-20); Calcium,Total 8.4 mg/dL (8.5-10.1); Chloride 103 mmol/L (98-107); Creatinine, Serum 0.71 mg/dL (0.55-1.02); EST Glomerular Filtration Rate 86 mL/min (>60); Est Glom Filt Rate - Afr Amer 104 mL/min (>60); Estimated Creatinine Clearance 38.37 ml/min; Glucose 106 mg/dL (74-106); Potassium 3.9 mmol/L (3.5-5.1); Sodium Level 140 mmol/L (136-145)
[2018-04-21 06:03] LABS: Absolute Lymphocyte Count 0.69 X10^3/ul (0.83-4.51); Absolute Neutrophil Count 6.4 X10^3/uL (2.0-7.7); Basophil# 0.02 X10^3/uL; Basophil% 0.3 % (0-1); Eosinophil# 0.17 X10^3/uL; Eosinophils% 2.1 % (0-5); Hematocrit 35.5 % (37-47); Hemoglobin 10.4 g/dl (12.0-15.0); Lymphocyte # 0.69 X10^3/ul (4.0); Lymphocyte % 8.6 % (19-41); Mean Corp Hgb Conc 29.3 g/gl (32-36); Mean Corpuscular Hgb 24.5 pg (27.0-32.0); Mean Corpuscular Volume 83.5 fL (81-99); Mean Platelet Vol. 9.6 fl (6.2-12.0); Monocyte# 0.71 X10^3/uL; Monocyte% 8.9 % (0-10); Neutrophil # 6.36 X10^3/uL (2.7-7.7); Neutrophil % 79.6 % (47-70); Platelet Count 238 K/mm3 (150-450); RBC Distribution Width CV 16.6 % (11.6-14.6); RBC Distribution Width SD 49.9 fl (35.1-43.9); Red Blood Count 4.25 M/mm3 (4.2-5.4)
[2018-04-21 06:06] LABS: POSITIVE COUNT NO; POSITIVE DIFFERENTIAL NO; POSITIVE MORPHOLOGY NO
[2018-04-21] MEDS: Gabapentin 400 MG Capsule PO ×5 (06:22→21:00)
[2018-04-21] MEDS: Levothyroxine 50 MCG Tablet PO (06:22)
[2018-04-21 06:36] LABS: Bedside Glucose 115 mg/dL (70-110)
[2018-04-21] MEDS: Hydroxychloroquine 200 MG Tablet PO ×2 (10:28→17:22)
[2018-04-21] MEDS: levoFLOXacin IV 250 MG/50 ML BAG 50 MG IV (10:28)
[2018-04-21] MEDS: Oseltamivir Phosphate 30 MG Capsule PO ×2 (10:29→21:00)
[2018-04-21] MEDS: DULoxetine Hcl 30 MG Capsule PO (10:29)
[2018-04-21] MEDS: Pantoprazole Sodium 40 MG Tablet PO ×2 (10:31→21:00)
[2018-04-21] MEDS: Atenolol 50 MG Tablet PO (10:31)
[2018-04-21] MEDS: Calcium Carb/Vitamin D 1 TABLET Tablet PO ×2 (10:31→17:22)
[2018-04-21] MEDS: Enoxaparin 40 MG/0.4 ML Syringe SC (10:31)
[2018-04-21 11:56] LABS: Bedside Glucose 125 mg/dL (70-110)
[2018-04-21] MEDS: 0.9% NaCl Peripheral Flush Adult/Peds IV ×2 (15:07→21:01)
--- NOTE | 2018-04-21 16:16 | PCM.PROGNOTE ---
Subjective: Patient was seen and examined today, she is still requiring low flow nasal cannula oxygen to maintain her pulse ox. She does not complain of any chest pain but she has complaints of cough and some shortness of breath. - Physical Exam General: Alert, Oriented x3, Cooperative, No apparent distress, Well developed HEENT: Atraumatic, PERRLA, EOMI, Normocephalic Oral: Moist Mucosa Neck: Supple, No Nuchal Rigidity, Trachea Midline, Thyroid Normal Size and Texture Lungs: Diminished, Wheezes - Expiratory wheezes bilaterally are noted Cardiovascular: Regular rate, Regular Rhythm, Normal S1, Normal S2, No murmurs, No Ectopic Activity, PMI Normal, No rub noted, No Gallop Abdomen: Bowel Sounds Present, Soft, Non Tender, Non-Distended, No hernias noted Extremities: No clubbing, No cyanosis, No edema, Capillary Refill Less than 3 Seconds Skin: No rashes, No breakdown Musculoskeletal: No Tenderness to Palpation of Joints or Extremities Neurological: Cranial nerves II-XII grossly intact, Neuro grossly intact, Muscle tone normal, Sensory exam intact to light touch and pain Psych/Mental Status: Normal Affect, Appropriate, Alert and oriented to time, place, person, mood and affect Vital Signs Temp Pulse Resp BP Pulse Ox 98.0 F 54 L 18 115/64 99 04/21/18 15:14 04/21/18 15:14 04/21/18 15:14 04/21/18 15:14 04/21/18 15:14 Oxygen Flow Rate (L/min) 1 Oxygen Delivery Method Nasal Cannula Weight: 122.47 kg Body Mass Index (BMI) 51.0 Finger Stick Blood Glucose 164 Intake and Output for Last 24 Hours 04/19/18 04/20/18 04/21/18 23:59 23:59 23:59 Intake Total 1450 / 1450 2320 / 2320 Balance 1450 / 1450 2320 / 2320 Microbiology Past 72 Hours 04/20/18 13:20 Bacteria Detection (PCR) - Final Blood Culture (Wb) - Anticubital Right Coag Negative Staph Blood Culture - Preliminary 04/20/18 13:08 Influenza Types A,B Direct FA (AL) - Final Mucosa - Nose Influenzae A Laboratory Tests Past 24 Hrs 04/21/18 04/21/18 05:28 05:28 WBC 8.0 RBC 4.25 Hgb 10.4 L Hct 35.5 L MCV 83.5 MCH 24.5 L MCHC 29.3 L RDW 16.6 H RDW Differential 49.9 H Plt Count 238 MPV 9.6 Immature Gran % (Auto) 0.500 Neut % (Auto) 79.6 H Lymph % (Auto) 8.6 L [place] % (Auto) 8.9 Eos % (Auto) 2.1 Baso % (Auto) 0.3 Absolute Neuts (auto) 6.4 Absolute Lymphs (auto) 0.69 L Total Counted Not Reportable Sodium 140 Potassium 3.9 Chloride 103 Carbon Dioxide 29.0 Anion Gap 8 BUN 12 Creatinine 0.71 Estim Creat Clear Calc 38.37 Est GFR (MDRD) Af Amer 104 Est GFR (MDRD) Non-Af 86 BUN/Creatinine Ratio 16.9 Glucose 106 Calcium 8.4 L POC Glucose 04/21/18 04/21/18 04/20/18 11:51 06:25 21:47 POC Glucose 125 H 115 H 102 04/20/18 17:36 POC Glucose 89 Medical Necessity - Tobacco Use Smoking Status: Never smoker Assessment/Plan #1 acute bronchitis-suspected to be gram-positive bacterial-patient will continue on Levaquin, aerosol treatments will be administered, oxygen will be weaned, I have decided to place the patient on IV corticosteroids due to her bronchospasm #2 acute influenza A-patient is on Tamiflu #3 type 2 diabetes #4 hypertension #5 rheumatoid arthritis #6 morbid obesity Note: Patient had one blood culture positive for coagulase-negative staph, I believe this is a contaminant Code Visit OBSV E&M: 09694 Subsequent observation care L3
[2018-04-21 17:26] LABS: Bedside Glucose 193 mg/dL (70-110)
[2018-04-21 20:56] LABS: Bedside Glucose 209 mg/dL (70-110)
[2018-04-21] MEDS: Insulin Lispro 100 UNIT/ML INSULN.PEN SC (21:00)
[2018-04-22] VITALS (8 sets, daily range): BP systolic 136–156; BP diastolic 75–79; PULSE 67–85; RESP 19–24; TEMP 36.8; O2SAT 88–97
[2018-04-22] MEDS: Albuterol 2.5 MG/3 ML VIAL.NEB. INHALATION ×4 (00:03→10:48)
[2018-04-22] MEDS: Pramipexole Di-HCl 1 MG Tablet PO (01:33)
[2018-04-22] MEDS: Gabapentin 400 MG Capsule PO ×2 (06:21→08:31)
[2018-04-22] MEDS: Levothyroxine 50 MCG Tablet PO (06:21)
[2018-04-22] MEDS: 0.9% NaCl Peripheral Flush Adult/Peds IV (06:23)
[2018-04-22] MEDS: Insulin Lispro 100 UNIT/ML INSULN.PEN SC (06:27)
[2018-04-22 06:31] LABS: Bedside Glucose 159 mg/dL (70-110)
[2018-04-22] MEDS: Hydroxychloroquine 200 MG Tablet PO (08:31)
[2018-04-22] MEDS: Atenolol 50 MG Tablet PO (08:31)
[2018-04-22] MEDS: DULoxetine Hcl 30 MG Capsule PO (08:31)
[2018-04-22] MEDS: Calcium Carb/Vitamin D 1 TABLET Tablet PO (08:32)
[2018-04-22] MEDS: Oseltamivir Phosphate 30 MG Capsule PO (08:32)
[2018-04-22] MEDS: Pantoprazole Sodium 40 MG Tablet PO (08:32)
[2018-04-22] MEDS: Enoxaparin 40 MG/0.4 ML Syringe SC (08:32)
[2018-04-22] MEDS: levoFLOXacin IV 250 MG/50 ML BAG 50 MG IV (08:33)
--- NOTE | 2018-04-22 10:34 | DCINST_ITS ---
You will use the following diet at home:: Calorie/Carbohydrate Controlled (specify 1200, 1400, etc) - 1800 LITO Your food should be the consistency of: Regular Your liquids should be the consistency of: Regular/Thin Discharge Activity: Return to Normal Activity Weight Bearing Status: Full weight bearing Allergies/Adverse Reactions: Allergies No Known Allergies Allergy (Verified 04/20/18 12:47) Medications to take at Discharge Atenolol [Tenormin (beta rema)] 50 mg PO DAILY 02/20/13 Hydroxychloroquine [Plaquenil] 200 mg PO BIDCM 02/20/13 Ropinirole HCl [Requip] 2 mg PO QHS PRN PRN 02/20/13 Gabapentin 400 mg PO 5X/DAY 05/05/13 Cyclobenzaprine [Flexeril] 10 mg PO TID PRN PRN 08/24/13 Multivitamins,Therapeutic [Multivitamin] 1 tablet PO DAILY 08/24/13 Duloxetine Hcl [Cymbalta] 30 mg PO DAILY 05/10/15 Levothyroxine [Synthroid] 50 mcg PO DAILY 01/23/16 Lansoprazole [Prevacid] 30 mg PO BID 08/21/16 Calcium Carb/Vitamin D [Os-Lito 500MG + D] 1 tablet PO BIDCM tablet 10/17/17 Metformin(XR) [Glucophage Xr] 500 mg PO DAILY 04/20/18 Acetaminophen [Tylenol Tablet] 650 mg PO Q6H PRN PRN tablet 04/22/18 Levofloxacin [Levaquin] 500 mg PO DAILY #2 tablet 04/22/18 Oseltamivir Phosphate [Tamiflu] 30 mg PO BID #6 capsule 04/22/18 Prednisone 20 mg PO BID #10 tablet 04/22/18 The following prescriptions were given: Levofloxacin [Levaquin] 500 mg PO DAILY #2 tablet Oseltamivir Phosphate [Tamiflu] 30 mg PO BID #6 capsule Prednisone 20 mg PO BID #10 tablet Primary Care Physician: Fadumo Mandel DO [Primary Care Provider] - Please follow up with your Primary Care Physician in: IN 2 WEEKS Test Results: Test results from this visit will be discussed in further detail at your follow- up appointment, if applicable.
--- NOTE | 2018-04-23 09:09 | DS.PCM_ITS ---
Discharge Date and Diagnosis Date of Admission: 04/20/18 Date of Discharge: 04/22/18 - Primary Discharge Diagnosis #1 acute bronchitis-suspected to be gram-positive bacterial #2 acute influenza A #3 type 2 diabetes #4 hypertension #5 rheumatoid arthritis #6 morbid obesity Patient had one blood culture positive for coagulase-negative staph- this is a contaminant - Secondary Discharge Diagnosis Chronic Problems Morbid obesity (Chronic) Fibromyalgia (Chronic) IBS (irritable bowel syndrome) (Chronic) Lumbar spinal stenosis (Chronic) Depression (Chronic) Rheumatoid arthritis (Chronic) Insomnia (Chronic) Diabetes mellitus (Chronic) GERD (gastroesophageal reflux disease) (Chronic) Restless leg syndrome (Chronic) Obstructive sleep apnea (Chronic) Peripheral neuropathy (Chronic) Hypothyroidism (Chronic) Chronic low back pain (Chronic) Psoriatic arthritis (Chronic) Type 2 diabetes mellitus (Chronic) Hypertension (Chronic) Hospital Course and Treatment Operations: None, - - Epidural injection Procedures: None Summary of Care Provided: The patient is a 72 year old F who was seen in the emergency room with a chief complaint of cough, fevers, and chills. Patient's cough was positive for green sputum production, workup in the emergency room included labs which were unremarkable set up for a positive influenza A lab result. Patient's chest x- ray was also unremarkable. Patient was hypoxic with room air pulse ox of 89%. Patient was admitted to [place] [address], she was treated with IV antibiotics, aerosol treatments, and IV corticosteroids. Patient's oxygen was weaned off. On 04/22/18, patient was seen and examined: On examination she appeared in good health and spirits. Vital signs as documented. Skin warm and dry and without overt rashes. Neck without JVD. Lungs clear. Heart exam notable for regular rhythm, normal sounds and absence of murmurs, rubs or gallops. Abdomen unremarkable and without evidence of organomegaly, masses, or abdominal aortic enlargement. Extremities nonedematous. Neuro: Cranial nerves II through XII are grossly intact, no focal motor deficits were noted, sensation to light touch and pinprick is intact. Psych: Patient is alert and oriented x3, she does not appear anxious or depressed. On 04/22/18, patient was seen and examined felt to be in stable condition for discharge home - Physical Exam Vital Signs Temp Pulse Resp BP Pulse Ox 98.2 F 81 20 H 136/75 H 97 04/22/18 08:00 04/22/18 10:48 04/22/18 10:48 04/22/18 08:00 04/22/18 10:48 Oxygen Flow Rate (L/min) 1 Oxygen Delivery Method Room Air Weight: 122.47 kg Body Mass Index (BMI) 51.0 Finger Stick Blood Glucose 164 Intake and Output for Last 24 Hours 04/21/18 04/22/18 04/23/18 23:59 23:59 23:59 Intake Total 3140 / 3140 120 / 120 Balance 3140 / 3140 120 / 120 Microbiology Past 72 Hours 04/20/18 14:08 Urine Culture - Final Urine, Clean Catch Culture exhibits no growth. 04/20/18 13:20 Bacteria Detection (PCR) - Final Blood Culture (Wb) - Anticubital Right Coag Negative Staph Blood Culture - Preliminary Coag Negative Staph 04/20/18 13:40 Blood Culture - Preliminary Blood Culture (Wb) - Left Hand No growth in 48 hours. 04/20/18 13:08 Influenza Types A,B Direct FA (AL) - Final Mucosa - Nose Influenzae A Discharge Activity: Return to Normal Activity Weight Bearing Status: Full weight bearing Home Medications: Medications to take at Discharge Atenolol [Tenormin (beta rema)] 50 mg PO DAILY 02/20/13 Hydroxychloroquine [Plaquenil] 200 mg PO BIDCM 02/20/13 Ropinirole HCl [Requip] 2 mg PO QHS PRN PRN 02/20/13 Gabapentin 400 mg PO 5X/DAY 05/05/13 Cyclobenzaprine [Flexeril] 10 mg PO TID PRN PRN 08/24/13 Multivitamins,Therapeutic [Multivitamin] 1 tablet PO DAILY 08/24/13 Duloxetine Hcl [Cymbalta] 30 mg PO DAILY 05/10/15 Levothyroxine [Synthroid] 50 mcg PO DAILY 01/23/16 Lansoprazole [Prevacid] 30 mg PO BID 08/21/16 Calcium Carb/Vitamin D [Os-Lito 500MG + D] 1 tablet PO BIDCM tablet 10/17/17 Metformin(XR) [Glucophage Xr] 500 mg PO DAILY 04/20/18 Acetaminophen [Tylenol Tablet] 650 mg PO Q6H PRN PRN tablet 04/22/18 Levofloxacin [Levaquin] 500 mg PO DAILY #2 tablet 04/22/18 Oseltamivir Phosphate [Tamiflu] 30 mg PO BID #6 capsule 04/22/18 Prednisone 20 mg PO BID #10 tablet 04/22/18 Following Prescrptions Were Given to Patient: Levofloxacin [Levaquin] 500 mg PO DAILY #2 tablet Oseltamivir Phosphate [Tamiflu] 30 mg PO BID #6 capsule Prednisone 20 mg PO BID #10 tablet Primary Care Physician: Fadumo Mandel DO [Primary Care Provider] - Please follow up with your Primary Care Physician in: IN 2 WEEKS Disposition: Home Minutes spent on discharge:: 30 Patient Condition:: Stable Medical Necessity - Tobacco Use Smoking Status: Never smoker Meaningful Use Info Meaningful Use Diagnoses (Choose all that apply): None applicable Code Visit OBSV E&M: 89407 Observation care discharge
== END 2018-04-22 13:30 | disposition home or self-care (01) ==
LOC: ED 13:38 → MS3 16:15
PROVIDERS: Admitting Provider Hospitalist; Emergency Provider Emergency Medicine; Family Provider Internal Medicine; PCP Internal Medicine; Visit Provider Internal Medicine
DX: J10.1 Influenza due to other identified influenza virus with other respiratory manifestations (principal); J20.9 Acute bronchitis, unspecified; I10 Essential (primary) hypertension; M06.9 Rheumatoid arthritis, unspecified; E66.01 Morbid (severe) obesity due to excess calories; Z68.43 Body mass index [BMI] 50.0-59.9, adult; Z71.3 Dietary counseling and surveillance; Z79.84 Long term (current) use of oral hypoglycemic drugs; Z79.899 Other long term (current) drug therapy; M79.7 Fibromyalgia; K58.9 Irritable bowel syndrome, unspecified; F32.9 Major depressive disorder, single episode, unspecified; G47.33 Obstructive sleep apnea (adult) (pediatric); E11.42 Type 2 diabetes mellitus with diabetic polyneuropathy; G25.81 Restless legs syndrome; L40.50 Arthropathic psoriasis, unspecified; K21.9 Gastro-esophageal reflux disease without esophagitis; G89.29 Other chronic pain; E03.9 Hypothyroidism, unspecified
CPT/HCPCS: 36415; 71045; 80048; 80053; 81001; 82962; 83605; 85025; 85610; 85730; 87040; 87086; 87149; 87804; 93005; 94640; 96361; 96365; 96366; 96372; 96375; 96376; 97116; 97161; 97165; 99218; 99285; J7030; J7040; A4216; G0378

== ENCOUNTER → 2018-07-15 12:35 | Outpatient (CLI) | payer MEDICARE, SELFPAY ==
[2018-04-20 16:49] VITALS: BMI 51.0
--- NOTE | 2018-07-15 12:38 | RAD_ITS ---
STUDY: X-RAY EXAMINATION: SCOLIOSIS SERIES REASON FOR EXAM: Female, 72 years old. Postoperative follow-up. Scoliosis. TECHNIQUE: 6 view(s) of the thoracolumbar spine were obtained in the upright standing position. COMPARISON: April 01, 2018. FINDINGS: Mild long segment thoracolumbar dextroscoliosis measuring approximately 10 degrees. Thoracic/lumbar/sacrum/iliac surgical hardware intact/well aligned. No evidence of hardware failure or loosening. Exaggerated lumbar lordosis. Exaggerated thoracic kyphosis with angulation at the upper portion of the surgical construct. Intervertebral disc spacer at L4-5. Multilevel endplate spondylosis. Small anterior osteophytes. Stable grade 1 spondylolisthesis at L1-2 and L2-3. Stable vertebral body collapse at T9. No new fracture lines. No dislocation. No cortical destruction. Osteopenia. Right shoulder replacement. Advanced degenerative changes at the left shoulder. Cardiomegaly. Minimal left costophrenic angle blunting. Normal bowel gas pattern. Normal soft tissues. RAD/Scoliosis 2 or 3 views IMPRESSION: Stable mild long segment thoracolumbar dextroscoliosis Stable exaggerated lumbar lordosis and angular kyphosis Surgical spinal fixation construct hardware intact/well aligned Stable right shoulder arthroplasty and advanced left shoulder degenerative changes Stable T9 vertebral body collapse Stable grade 1 spondylolisthesis at L1-2 and L2-3 Cardiomegaly with left costophrenic angle blunting Electronically Signed: Ryan Friedman DO at 15:03 EDT Tel , Service support ,
== END ==
PROVIDERS: Family Provider Internal Medicine; PCP Internal Medicine; Referring Provider Orthopaedic Surgery; Visit Provider Orthopaedic Surgery
DX: Z98.1 Arthrodesis status (principal)
CPT/HCPCS: 72082

== ENCOUNTER → 2018-08-19 07:33 | Outpatient (CLI) | payer MEDICARE, SELFPAY ==
[2018-08-06 08:19] VITALS: BMI 50.6
--- NOTE | 2018-08-19 13:04 | PFTCOMP_ITS ---
COMPLETE PULMONARY FUNCTION TEST INTERPRETATION Brief HPI: Patient is a 72 year old female, currently under the care of Dr. Mckenna, who presents to [facility] for complete pulmonary function tests secondary to diagnosis of cough. Respiratory therapist reports good effort and reproducible results. Interpretation: Forced expiration spirometry shows no large airways obstructive ventilatory defect with an FEV1 of 56% predicted. There is no significant bronchodilator response by strict ATS criteria. Spirograms are of good quality and plateau normally. The respiratory flow volume loop shows a normal pattern. Lung volumes by body plethysmography show a decreased total lung capacity at 2.99 L, 70% predicted. All other lung volumes are reduced symmetrically. Diffusion capacity by carbon monoxide is decreased at 57% predicted. The airway resistance is normal. No previous pulmonary function tests were available for review. Impression: Mild restrictive ventilatory defect with a symmetric reduction diffusing capacity consistent with possible interstitial lung disease
== END ==
PROVIDERS: Family Provider Internal Medicine; PCP Internal Medicine; Referring Provider Internal Medicine Critical Care Medicine; Visit Provider Internal Medicine Critical Care Medicine
DX: R05 Cough (principal)
CPT/HCPCS: 94060; 94726; 94729

== ENCOUNTER 2018-09-12 19:03 | Emergency (ER) | payer MEDICARE, SELFPAY ==
[2018-09-01 13:01] VITALS: BMI 50.4
[2018-09-12 19:06] VITALS: BP 186/98; PULSE 97; RESP 18; TEMP 36.8; O2SAT 94; BMI 54.5
--- NOTE | 2018-09-12 19:42 | CT_ITS ---
STUDY: CT ABDOMEN AND PELVIS WITH CONTRAST REASON FOR EXAM: Female, 72 years old. Abdominal pain RADIATION DOSAGE (If Supplied By Facility): CTDIvol = ( 18.74 ) mGy, DLP = ( 1308.41 ) mGycm TECHNIQUE: Transaxial images were obtained from the dome of the diaphragm to the symphysis pubis with oral contrast. 100ML IV/Oral Isovue 300 was administered. Sagittal and coronal images were reconstructed. Individualized dose optimization techniques were used for this CT. COMPARISON: October 05, 2017 KUB abdomen FINDINGS: The visualized lung bases are unremarkable. The visualized portions of the heart are within normal limits. Normal liver. There is non-visualization of the gallbladder, which may be secondary to either contraction or a prior cholecystectomy. Normal spleen. Normal pancreas. Normal bilateral adrenal glands. There is minimal right pelviectasis. There are no visualized stones. Normal left kidney. There is radiopaque material within the stomach. Normal small intestine. Normal colon. The appendix is visualized and appears normal. There is minimal calcification of the aorta. Normal inferior vena cava. There few nonspecific subcentimeter retroperitoneal lymph nodes. Normal urinary bladder. There is absence of the uterus consistent with a prior hysterectomy. There is a small umbilical hernia containing fat. There is exaggerated physiologic lordosis. There is a spinal fusion from T10 to the level of the sacrum. The level of T9-T10 there is kyphosis. The pedicle screws projected over the anterior aspect of the disc space on the lateral view. There is multilevel neural foraminal narrowing. There is been a laminectomy from the level of T10-L5. There are bilateral spinal rods. There are no imaging connecting bars. CT/Abdomen/Pelvis WITH Contrast IMPRESSION: Mild constipation. Status post hysterectomy Status post cholecystectomy Extensive spinal fusion laminectomy with kyphosis at the level of T9-T10. There is moderate central stenosis T9-T10. Electronically Signed: Kristy Islas MD at 21:38 EDT Tel , Service support ,
[2018-09-12 19:56] LABS: Absolute Lymphocyte Count 1.92 X10^3/ul (0.83-4.51); Absolute Neutrophil Count 7.8 X10^3/uL (2.0-7.7); Basophil# 0.06 X10^3/uL; Basophil% 0.6 % (0-1); Eosinophil# 0.41 X10^3/uL; Eosinophils% 3.8 % (0-5); Hematocrit 41.2 % (37-47); Hemoglobin 12.6 g/dl (12.0-15.0); Lymphocyte # 1.92 X10^3/ul (4.0); Lymphocyte % 17.6 % (19-41); Mean Corp Hgb Conc 30.6 g/gl (32-36); Mean Corpuscular Volume 81.6 fL (81-99); Mean Platelet Vol. 9.2 fl (6.2-12.0); Monocyte# 0.64 X10^3/uL; Monocyte% 5.9 % (0-10); Neutrophil # 7.82 X10^3/uL (2.7-7.7); Neutrophil % 71.8 % (47-70); Platelet Count 333 K/mm3 (150-450); RBC Distribution Width CV 15.4 % (11.6-14.6); Red Blood Count 5.05 M/mm3 (4.2-5.4); White Blood Count 10.9 K/mm3 (4.4-11.0)
[2018-09-12 20:03] LABS: Anion Gap 4 (5-15); BUN 12 mg/dL (7-18); BUN/Creat Ratio 11.5 RATIO (10-20); Calcium,Total 8.6 mg/dL (8.5-10.1); Chloride 105 mmol/L (98-107); Creatinine, Serum 1.04 mg/dL (0.55-1.02); EST Glomerular Filtration Rate 55 mL/min (>60); Est Glom Filt Rate - Afr Amer 67 mL/min (>60); Estimated Creatinine Clearance 94.53 ml/min; Glucose 115 mg/dL (74-106); Lipase 141 U/L (73-393); Potassium 3.8 mmol/L (3.5-5.1); Sodium Level 141 mmol/L (136-145)
[2018-09-12 20:05] LABS: POSITIVE COUNT NO; POSITIVE DIFFERENTIAL NO; POSITIVE MORPHOLOGY NO
[2018-09-12] MEDS: Ondansetron 4 MG/2 ML Vial IV (20:07)
[2018-09-12] MEDS: 0.9% Normal Saline 1,000 ML 125 ML IV (20:07)
[2018-09-12] MEDS: Morphine 4 MG/ML Syringe IV ×2 (20:07→22:21)
[2018-09-12 20:18] LABS: Lactic Acid 1.1 mmol/L (0.4-2.0)
[2018-09-12 21:43] LABS: Bacteria 0 SEEN /hpf (None Seen); Mucous, Urine 0 SEEN /hpf (<or=2+); White Blood Cells 0 SEEN /hpf (0-5)
[2018-09-12 21:44] LABS: Color, Urine Yellow (Yellow); Glucose, Dipstick Normal (Normal); Ketone-Dipstick Negative (Negative); Leukocyte Esterase-Dipstick Negative /ul (Negative); Nitrite-Dipstick Negative (Negative); Occult Blood-Urine 10 /ul (Negative); Protein-Dipstick 15 mg/dl (Negative); Urine Bilirubin Dipstick Negative (Negative); Urine Clarity Sl. Cloudy (Clear); Urine Urobilinogen Normal (Normal)
[2018-09-12 21:53] LABS: Amorphous Sediment 1+; Red Blood Cells-Urine 0-5 SEEN /hpf (0-5); Squamous Epithelial Cells - UA 5-10 SEEN /hpf (5-10)
--- NOTE | 2018-09-12 22:08 | ED.DCSUM_ITS ---
- ER Visit Summary Date of Service: 09/12/18 Chief Complaint: [Abdominal pain] History of Present Illness: The patient is a 72 F [presents the emergency department complaint of abdominal pain that started 3 days ago. Patient states that the pain is sharp and rates it an 8 out of 10. Patient states the pain is been relatively continuous. She denies any blood in her stool or black tarry stool. Patient is able to eat. She denies urinary symptoms. She denies fever. She has not had pain like this before. She does have a history of irritable bowel syndrome but this pain is more severe than what she is experienced with that in the past. Patient's been taken 1-2 Gilman a day and it really has not he lped her pain much. Patient slept with a heating pad last night was able to sleep.] Patient has had prior full hysterectomy and cholecystectomy. Physical Examination: [HEENT-PERRLA, EOMI. Cranial nerves II through XII grossly intact. TMs clear. Mucous membranes moist. No adenopathy. Cardiovascular-regular rate and rhythm without murmur or ectopy Lungs-clear to auscultation, chest wall stable without crepitus or subcu emphysema Abdomen-normoactive bowel sounds, soft. Patient has tenderness to palpation over the right lower quadrant with some guarding. There is no rebound, rigidity, or perineal signs. No rashes on the abdomen. Extremities-intact ?4, normal range of motion, normal pulses, atraumatic] Test Results: [CBC with differential showed a white count of 10.9, hemoglobin 12.6, hematocrit 41, platelets 333. Chemistries unremarkable. Lipase was 141. Urinalysis was normal. Lactate was 1.1. CT scan of the abdomen pelvis with IV and p.o. contrast showed a small umbilical hernia. Normal appendix. No bowel obstruction. No kidney stones. Essentially nothing significant.] Emergency Department Course and Treatment: [He was medicated with morphine and Zofran initially and she had some pain relief with that. Patient will be given a dose of Bentyl. Patient will be given a prescription for Bentyl and she has Gilman at home.] Treatment Plan: [Follow-up with primary care physician in 3 to 5 days. Patient advised to return if fever, vomiting, worsening pain, bloody stool, or conditions worsen anyway.] Disposition: [Discharged home in stable condition] Impression: [Abdominal pain-etiology uncertain] This note was generated with [email or web address] dictation software. It may contain incorrect words, spelling, and punctuation that were not noted in review of the chart prior to signing ED Disposition - Plan for ED Patient: Referrals: Fadumo Mandel DO [Primary Care Provider] -
--- NOTE | 2018-09-12 22:08 | ED.DEP ---
ED Disposition - Plan for ED Patient: Instructions: ED Abdominal Pain Unkn Cause Prescriptions: Dicyclomine HCl [Bentyl] 20 mg PO TID PRN #20 cap PRN Reason: Cramp Referrals: Fadumo Mandel DO [Primary Care Provider] - 3-5 Days
[2018-09-12] MEDS: Dicyclomine 20 MG/2 ML Vial IM (22:25)
[2018-09-12 23:02] VITALS: RESP 18
== END 2018-09-12 23:06 | disposition home or self-care (01) ==
PROVIDERS: Emergency Provider Emergency Medicine; Family Provider Internal Medicine; PCP Internal Medicine
DX: R10.9 Unspecified abdominal pain (principal); R11.0 Nausea; Z90.710 Acquired absence of both cervix and uterus; Z90.49 Acquired absence of other specified parts of digestive tract; K58.9 Irritable bowel syndrome, unspecified; E11.9 Type 2 diabetes mellitus without complications; I10 Essential (primary) hypertension; M79.7 Fibromyalgia; K42.9 Umbilical hernia without obstruction or gangrene
CPT/HCPCS: 74177; 80048; 81001; 83605; 83690; 85025; 96361; 96372; 96374; 96375; 96376; 99285; J7030; Q9967; A4216; J2405

== ENCOUNTER 2018-09-13 11:00 | Observation (INO) | payer MEDICARE, SELFPAY ==
[2018-09-12 19:06] VITALS: BMI 54.5
[2018-09-13 11:01] VITALS: BP 183/104; PULSE 105; RESP 18; TEMP 36.8; O2SAT 100; BMI 43.7
--- NOTE | 2018-09-13 11:39 | ED.VISSUMM ---
- ER Visit Summary Date of Service: 09/13/18 Chief Complaint: Abdominal pain History of Present Illness: The patient is a 72 F with right lower quadrant abdominal pain that radiates around to her right lower back. Symptoms have been going on for 4 days. She was seen in the ED for this last night. She had an unremarkable CT, labs, urinalysis. She was discharged home. Since she went home overnight, she has had increasing pain and increasing nausea. She was not able to take her medications. Denies any other new or different symptoms. Denies any chest pain or shortness of breath. Denies fevers. Denies any urinary symptoms. Denies any trauma. Patient has a history of fibromyalgia, IBS, rheumatoid arthritis, restless leg syndrome, obstructive sleep apnea, diabetes, hypertension, GERD. Remote history of lumbosacral surgery. Non-smoker. She does take [place] at home. Physical Examination: Afebrile and vital signs unremarkable except for a blood pressure of 183/104. Heart rate 105. Patient appears uncomfortable. She is alert and oriented. Heart tachycardic but regular. Lungs clear bilaterally. Abdomen soft. Tender to palpation in the right lower quadrant and right flank. No distention. No masses. No guarding or rebound. Skin appears slightly pale but otherwise unremarkable. Test Results: We will recheck labs, urinalysis. Emergency Department Course and Treatment: Patient had fluids, Dilaudid, Zofran while awaiting results. Will recheck labs and urinalysis for any interval changes. Will not repeat CT at this point, but I did review the imaging from yesterday. Will reassess. Repeat CBC, CMP, lipase, urinalysis unremarkable. Patient has continued right flank pain. Based on her imaging yesterday and results today, I do not believe she needs a repeat CT. Patient has continued pain, and will receive additional pain medicine. She did have a pulse ox around 89% on room air after pain medicine. She said this has happened before. She does not feel short of breath or have any chest pain. Patient was placed on a nasal cannula and she tolerated this well. I suspect her body habitus may also contribute to this. Given her repeat visit, intractable pain, I did contact the hospitalist to evaluate for further care. Treatment Plan: As above Disposition: Admission Impression: 1. Intractable right flank pain This note was generated with [employer] dictation software. It may contain incorrect words, spelling, and punctuation that were not noted in review of the chart prior to signing ED Disposition - Plan for ED Patient: Referrals: Fadumo Mandel DO [Primary Care Provider] -
[2018-09-13] MEDS: 0.9% Normal Saline 1,000 ML 1000 ML IV (11:44)
[2018-09-13] MEDS: Ondansetron 4 MG/2 ML Vial IV ×2 (11:44→20:36)
[2018-09-13] MEDS: HYDROmorphone 1 MG/ML Syringe IV (11:44)
[2018-09-13 12:24] LABS: Absolute Lymphocyte Count 0.91 X10^3/ul (0.83-4.51); Absolute Neutrophil Count 8.8 X10^3/uL (2.0-7.7); Basophil# 0.04 X10^3/uL; Basophil% 0.4 % (0-1); Eosinophil# 0.12 X10^3/uL; Eosinophils% 1.2 % (0-5); Hematocrit 41.4 % (37-47); Hemoglobin 12.5 g/dl (12.0-15.0); Lymphocyte # 0.91 X10^3/ul (4.0); Lymphocyte % 8.8 % (19-41); Mean Corp Hgb Conc 30.2 g/gl (32-36); Mean Corpuscular Hgb 24.9 pg (27.0-32.0); Mean Corpuscular Volume 82.3 fL (81-99); Mean Platelet Vol. 9.1 fl (6.2-12.0); Monocyte% 4.8 % (0-10); Neutrophil # 8.79 X10^3/uL (2.7-7.7); Neutrophil % 84.4 % (47-70); POSITIVE COUNT NO; POSITIVE DIFFERENTIAL NO; POSITIVE MORPHOLOGY NO; Platelet Count 297 K/mm3 (150-450); RBC Distribution Width CV 15.3 % (11.6-14.6); RBC Distribution Width SD 46.1 fl (35.1-43.9); Red Blood Count 5.03 M/mm3 (4.2-5.4); White Blood Count 10.4 K/mm3 (4.4-11.0)
[2018-09-13 12:37] LABS: ALB/GLOB Ratio 0.8 RATIO (0.9-2.4); AST(SGOT) 12 U/L (15-37); Alanine Aminotransfer ALT/SGPT 14 U/L (13-56); Albumin, Serum 3.3 g/dL (3.2-5.0); Alkaline Phosphatase 123 U/L (45-117); Anion Gap 5 (5-15); BUN 10 mg/dL (7-18); BUN/Creat Ratio 13.1 RATIO (10-20); Calcium,Total 8.8 mg/dL (8.5-10.1); Chloride 103 mmol/L (98-107); Creatinine, Serum 0.76 mg/dL (0.55-1.02); EST Glomerular Filtration Rate 79 mL/min (>60); Est Glom Filt Rate - Afr Amer 96 mL/min (>60); Estimated Creatinine Clearance 78.91 ml/min; Globulin 4.4 g/dL (2.2-4.2); Glucose 111 mg/dL (74-106); Lipase 97 U/L (73-393); Potassium 4.1 mmol/L (3.5-5.1); Protein, Total 7.7 g/dL (6.4-8.2); Sodium Level 138 mmol/L (136-145)
[2018-09-13 13:00] VITALS: BP 148/69; PULSE 87; RESP 16; O2SAT 98
[2018-09-13 13:28] LABS: Bacteria 0 SEEN /hpf (None Seen); Mucous, Urine 0 SEEN /hpf (<or=2+); Red Blood Cells-Urine 0 SEEN /hpf (0-5); Squamous Epithelial Cells - UA 0 SEEN /hpf (5-10); White Blood Cells 0 SEEN /hpf (0-5)
[2018-09-13 13:36] LABS: Color, Urine Yellow (Yellow); Glucose, Dipstick Normal (Normal); Ketone-Dipstick Negative (Negative); Leukocyte Esterase-Dipstick Negative /ul (Negative); Nitrite-Dipstick Negative (Negative); Occult Blood-Urine 10 /ul (Negative); Protein-Dipstick Negative (Negative); Urine Bilirubin Dipstick Negative (Negative); Urine Clarity Clear (Clear); Urine Urobilinogen Normal (Normal); Urine pH 6.5 (5.0 - 8.0)
--- NOTE | 2018-09-13 14:59 | PCM.HP.STD ---
<Joanna Pierson - Last Filed: 09/13/18 15:17> Problem List (1) Chronic cough Status: Chronic (2) Morbid obesity Status: Chronic (3) Fibromyalgia Status: Chronic (4) IBS (irritable bowel syndrome) Status: Chronic (5) Lumbar spinal stenosis Status: Chronic (6) Depression Status: Chronic (7) Rheumatoid arthritis Status: Chronic (8) Insomnia Status: Chronic (9) Diabetes mellitus Status: Chronic (10) GERD (gastroesophageal reflux disease) Status: Chronic (11) Restless leg syndrome Status: Chronic (12) Obstructive sleep apnea Status: Chronic (13) Peripheral neuropathy Status: Chronic (14) Hypothyroidism Status: Chronic (15) Chronic low back pain Status: Chronic (16) Psoriatic arthritis Status: Chronic (17) Type 2 diabetes mellitus Status: Chronic (18) Hypertension Status: Chronic History of Present Illness Date of Admission: 09/13/18 Chief Complaint: Right sided abdominal pain. The patient is a 72 year old F who present to the Emergency Room due to right sided abdominal pain x 4 days. She was seen in emergency room yesterday as well and CT of abdomen completed along with urinalysis and labs which were all unremarkable. She was discharged home and had increase abdominal pain as well as nausea overnight and this morning. Denies emesis. Reports she had a normal bowel movement earlier this morning. Denies urinary symptoms. She describes right-sided abdominal pain as sharp and cramping in nature and does radiate some to her right back. She request increased pain medication during assessment. She has a past medical history of type 2 diabetes mellitus, hypertension, hypothyroidism, rheumatoid arthritis/psoriatic arthritis, fibromyalgia, irritable bowel syndrome, restless leg syndrome, GERD, chronic back pain, BALJIT, obesity. Past Medical History Past Medical History (Chronic Problems): Chronic Problems (Last Reviewed 09/01/18 @ 13:34 by RONDA HowardC) Chronic cough (Chronic) Morbid obesity (Chronic) Fibromyalgia (Chronic) IBS (irritable bowel syndrome) (Chronic) Lumbar spinal stenosis (Chronic) Depression (Chronic) Rheumatoid arthritis (Chronic) Insomnia (Chronic) Diabetes mellitus (Chronic) GERD (gastroesophageal reflux disease) (Chronic) Restless leg syndrome (Chronic) Obstructive sleep apnea (Chronic) Peripheral neuropathy (Chronic) Hypothyroidism (Chronic) Chronic low back pain (Chronic) Psoriatic arthritis (Chronic) Type 2 diabetes mellitus (Chronic) Hypertension (Chronic) Medical History: Medical History (Last Reviewed 09/01/18 @ 13:34 by Madie Felton [employer]INTE[employer] TECH-C) Chronic cough (Chronic) R05 Morbid obesity (Chronic) E66.01 Fibromyalgia (Chronic) M79.7 IBS (irritable bowel syndrome) (Chronic) K58.9 Lumbar spinal stenosis (Chronic) M48.061 Depression (Chronic) F32.9 Rheumatoid arthritis (Chronic) M06.9 Insomnia (Chronic) G47.00 Diabetes mellitus (Chronic) E11.9 GERD (gastroesophageal reflux disease) (Chronic) K21.9 Restless leg syndrome (Chronic) G25.81 Obstructive sleep apnea (Chronic) G47.33 Peripheral neuropathy (Chronic) G62.9 Hypothyroidism (Chronic) E03.9 Chronic low back pain (Chronic) M54.5, G89.29 Psoriatic arthritis (Chronic) L40.50 Type 2 diabetes mellitus (Chronic) E11.9 Hypertension (Chronic) I10 Allergies No Known Allergies Allergy (Verified 09/12/18 19:09) Home Medications: Ambulatory Orders Medication Instructions Recorded Atenolol [Tenormin (beta rema)] 50 mg PO DAILY 02/20/13 Hydroxychloroquine [Plaquenil] 200 mg PO BIDCM 02/20/13 Gabapentin 400 mg PO 5X/DAY 05/05/13 Multivitamins,Therapeutic 1 tab PO DAILY 08/24/13 [Multivitamin] Duloxetine Hcl [Cymbalta] 30 mg PO DAILY 05/10/15 Levothyroxine [Synthroid] 50 mcg PO DAILY 01/23/16 Metformin(XR) [Glucophage Xr] 500 mg PO DAILY 04/20/18 Acetaminophen [Tylenol Tablet] 650 mg PO Q6H PRN PRN tab 04/22/18 omeprazole 40 mg capsule,delayed 40 mg PO DAILY 08/06/18 release clonazepam 0.5 mg tablet 0.5 mg PO DAILY PRN tab 09/01/18 fluticasone furoate 200 1 inh INHALATION QDAY #60 ea 09/01/18 mcg-vilanterol 25 mcg/dose inhalation powder Dicyclomine HCl [Bentyl] 20 mg PO TID PRN #20 cap 09/12/18 Calcium Carb/Vitamin D [Os-Lito 1 tablet PO BIDCM 09/13/18 500MG + D] Surgical History: Surgical History (Last Reviewed 09/13/18 @ 15:01 by YOHANA Galvan H/O lumbosacral spine surgery Z98.890 09/13/17 Surgical History: cholecystectomy, hysterectomy, total knee arthroplasty - BL TKR., - - R Reverse Shoulder replacement. 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 Paternal History Items: Diabetes, Heart Disease Review of Systems Constitutional: Denies: Chills, Fever, Weight Change HEENT: Denies: Head Aches, Sinus Congestion, Sinus Drainage Cardiovascular: Denies: Chest Pain, Palpitations Respiratory: Denies: Cough, Shortness of breath at rest, Sputum production Gastrointestinal: Reports: Abdominal Pain - Right side, Nausea. Denies: Constipation, Diarrhea, Vomiting Genitourinary: Denies: Dysuria Musculoskeletal: Denies: Joint Pain, Joint Tenderness Skin: Denies: Rash, Wounds Neurological: Denies: Numbness, Tingling, Focal weakness Psychiatric: Denies: Anxiety, Depression, Homicidal Ideations, Suicidal Ideations Hematologic/ Lymphatic: Denies: Easy Bruising, Easy Bleeding VTE Information - Inpt Only VTE Present on Admission: No VTE Mechan Device Prophylaxis: None VTE Pharm Prophylaxis ordered?: Yes - Physical Exam General: Alert, Oriented x3, Cooperative HEENT: Atraumatic, PERRLA, EOMI, Normocephalic Neck: Supple, No JVD, Negative Carotid Bruits Lungs: Clear to auscultation, Diminished Cardiovascular: Regular rate, Regular Rhythm, Normal S1, Normal S2, No murmurs Abdomen: Bowel Sounds Present, Soft, Non-Distended, Obese, Tender - Right side Extremities: No clubbing, No cyanosis, No edema, Capillary Refill Less than 3 Seconds Skin: No rashes, No breakdown Musculoskeletal: No Tenderness to Palpation of Joints or Extremities Neurological: Cranial nerves II-XII grossly intact, Neuro grossly intact Psych/Mental Status: Normal Affect, Appropriate Vital Signs Temp Pulse Resp BP Pulse Ox 98.3 F 87 16 148/69 H 98 09/13/18 11:01 09/13/18 13:00 09/13/18 13:00 09/13/18 13:00 09/13/18 13:00 Oxygen Delivery Method Room Air Weight: 216 lb 11.43 oz Body Mass Index (BMI) 43.7 Finger Stick Blood Glucose 164 Laboratory Tests Past 24 Hrs 09/13/18 09/13/18 09/13/18 12:10 12:10 12:30 WBC 10.4 RBC 5.03 Hgb 12.5 Hct 41.4 MCV 82.3 MCH 24.9 L MCHC 30.2 L RDW 15.3 H RDW Differential 46.1 H Plt Count 297 MPV 9.1 Immature Gran % (Auto) 0.400 Neut % (Auto) 84.4 H Lymph % (Auto) 8.8 L [place] % (Auto) 4.8 Eos % (Auto) 1.2 Baso % (Auto) 0.4 Absolute Neuts (auto) 8.8 H Absolute Lymphs (auto) 0.91 Total Counted Not Reportable Sodium 138 Potassium 4.1 Chloride 103 Carbon Dioxide 30.0 Anion Gap 5 BUN 10 Creatinine 0.76 Estim Creat Clear Calc 78.91 Est GFR (MDRD) Af Amer 96 Est GFR (MDRD) Non-Af 79 BUN/Creatinine Ratio 13.1 Glucose 111 H Calcium 8.8 Total Bilirubin 0.40 AST 12 L ALT 14 Alkaline Phosphatase 123 H Total Protein 7.7 Albumin 3.3 Globulin 4.4 H Albumin/Globulin Ratio 0.8 L Lipase 97 Urine Color Yellow Urine Clarity Clear Urine pH 6.5 Ur Specific [place] 1.010 Urine Protein Negative Urine Glucose (UA) Normal Urine Ketones Negative Urine Occult Blood 10 H Urine Nitrite Negative Urine Bilirubin Negative Urine Urobilinogen Normal Ur Leukocyte Esterase Negative Urine RBC 0 SEEN Urine WBC 0 SEEN Ur Squamous Epith Cells 0 SEEN Urine Bacteria 0 SEEN Urine Mucus 0 SEEN Assessment/Plan 1. Persistent right-sided abdominal pain-CT of abdomen completed yesterday shows mild constipation, otherwise no acute process. Urinalysis unremarkable. Bowel regimen for mild constipation. PRN pain regimen. LFTs, lipase, bilirubin, alk phos all within normal limits. 2. Type 2 diabetes mellitus-hold metformin regimen. Accu-Cheks ACHS with sliding scale insulin. 3. Hypertension-stable, continue home atenolol regimen. 4. Hypothyroidism-continue Synthroid regimen. 5. Rheumatoid arthritis/Psoriatic arthritis/Fibromyalgia/Chronic back pain/RLS-continue gabapentin, Plaquenil regimen. 6. Irritable bowel syndrome-continue home PRN Bentyl regimen. 7. GERD-continue omeprazole regimen. 8. BALJIT- continue home CPAP regimen. 9. Anxiety/depression-continue home clonazepam, duloxetine regimen. 10. Obesity-encourage diet and lifestyle modifications. Nutrition consult. DVT prophylaxis- Lovenox sc This patient was seen by MONICA Galvan under the supervision of Dr. Brennan. <Ramirez Brennan F - Last Filed: 09/13/18 16:00> History of Present Illness The patient is a 72 year old F [] Past Medical History Medical History: Medical History (Last Reviewed 09/01/18 @ 13:34 by Madie Felton NP-C) Chronic cough (Chronic) R05 Morbid obesity (Chronic) E66.01 Fibromyalgia (Chronic) M79.7 IBS (irritable bowel syndrome) (Chronic) K58.9 Lumbar spinal stenosis (Chronic) M48.061 Depression (Chronic) F32.9 Rheumatoid arthritis (Chronic) M06.9 Insomnia (Chronic) G47.00 Diabetes mellitus (Chronic) E11.9 GERD (gastroesophageal reflux disease) (Chronic) K21.9 Restless leg syndrome (Chronic) G25.81 Obstructive sleep apnea (Chronic) G47.33 Peripheral neuropathy (Chronic) G62.9 Hypothyroidism (Chronic) E03.9 Chronic low back pain (Chronic) M54.5, G89.29 Psoriatic arthritis (Chronic) L40.50 Type 2 diabetes mellitus (Chronic) E11.9 Hypertension (Chronic) I10 Allergies No Known Allergies Allergy (Verified 09/12/18 19:09) Surgical History: Surgical History (Last Reviewed 09/13/18 @ 15:01 by MONICA Galvan) H/O lumbosacral spine surgery Z98.890 09/13/17 - Physical Exam Vital Signs Temp Pulse Resp BP Pulse Ox 98.2 F 100 16 195/82 H 95 09/13/18 15:12 09/13/18 15:12 09/13/18 15:12 09/13/18 15:12 09/13/18 15:12 Oxygen Flow Rate (L/min) 2 Oxygen Delivery Method Nasal Cannula Weight: 257 lb 11.43 oz Body Mass Index (BMI) 52.0 Finger Stick Blood Glucose 164 Laboratory Tests Past 24 Hrs 09/13/18 09/13/18 09/13/18 12:10 12:10 12:30 WBC 10.4 RBC 5.03 Hgb 12.5 Hct 41.4 MCV 82.3 MCH 24.9 L MCHC 30.2 L RDW 15.3 H RDW Differential 46.1 H Plt Count 297 MPV 9.1 Immature Gran % (Auto) 0.400 Neut % (Auto) 84.4 H Lymph % (Auto) 8.8 L [place] % (Auto) 4.8 Eos % (Auto) 1.2 Baso % (Auto) 0.4 Absolute Neuts (auto) 8.8 H Absolute Lymphs (auto) 0.91 Total Counted Not Reportable Sodium 138 Potassium 4.1 Chloride 103 Carbon Dioxide 30.0 Anion Gap 5 BUN 10 Creatinine 0.76 Estim Creat Clear Calc 78.91 Est GFR (MDRD) Af Amer 96 Est GFR (MDRD) Non-Af 79 BUN/Creatinine Ratio 13.1 Glucose 111 H Calcium 8.8 Total Bilirubin 0.40 AST 12 L ALT 14 Alkaline Phosphatase 123 H Total Protein 7.7 Albumin 3.3 Globulin 4.4 H Albumin/Globulin Ratio 0.8 L Lipase 97 Urine Color Yellow Urine Clarity Clear Urine pH 6.5 Ur Specific [place] 1.010 Urine Protein Negative Urine Glucose (UA) Normal Urine Ketones Negative Urine Occult Blood 10 H Urine Nitrite Negative Urine Bilirubin Negative Urine Urobilinogen Normal Ur Leukocyte Esterase Negative Urine RBC 0 SEEN Urine WBC 0 SEEN Ur Squamous Epith Cells 0 SEEN Urine Bacteria 0 SEEN Urine Mucus 0 SEEN POC Glucose 09/13/18 15:37 POC Glucose 95 Code Visit Addendum: Dr. Brennan I personally examined the patient and reviewed the chart. I agree with the above. 72-year-old female presenting with right lower quadrant abdominal pain since Saturday. She says is been getting worse and has gone from having an intermittent intensity to having a constant intensity. She had a CT scan done yesterday in the ER with no abnormality and she has a history of a hysterectomy and oophorectomy. Also her white count is unremarkable as are the rest of her labs, she has been afebrile. On exam it seems to be more abdominal wall than anything else and there is nothing on CT scan to indicate that could be. Of note it does appear that she has some constipation and therefore will treat that with MiraLAX and a stool softener. OBSV E&M: [id number] Initial observation care L3
[2018-09-13 15:01] VITALS: BMI 52.0
--- NOTE | 2018-09-13 15:06 | HP.PCM_ITS ---
<Joanna Pierson - Last Filed: 09/13/18 15:17> Problem List (1) Chronic cough Status: Chronic (2) Morbid obesity Status: Chronic (3) Fibromyalgia Status: Chronic (4) IBS (irritable bowel syndrome) Status: Chronic (5) Lumbar spinal stenosis Status: Chronic (6) Depression Status: Chronic (7) Rheumatoid arthritis Status: Chronic (8) Insomnia Status: Chronic (9) Diabetes mellitus Status: Chronic (10) GERD (gastroesophageal reflux disease) Status: Chronic (11) Restless leg syndrome Status: Chronic (12) Obstructive sleep apnea Status: Chronic (13) Peripheral neuropathy Status: Chronic (14) Hypothyroidism Status: Chronic (15) Chronic low back pain Status: Chronic (16) Psoriatic arthritis Status: Chronic (17) Type 2 diabetes mellitus Status: Chronic (18) Hypertension Status: Chronic History of Present Illness Date of Admission: 09/13/18 Chief Complaint: Right sided abdominal pain. The patient is a 72 year old F who present to the Emergency Room due to right sided abdominal pain x 4 days. She was seen in emergency room yesterday as well and CT of abdomen completed along with urinalysis and labs which were all unrem arkable. She was discharged home and had increase abdominal pain as well as nausea overnight and this morning. Denies emesis. Reports she had a normal bowel movement earlier this morning. Denies urinary symptoms. She describes right-sided abdominal pain as sharp and cramping in nature and does radiate some to her right back. She request increased pain medication during assessment. She has a past medical history of type 2 diabetes mellitus, hypertension, hypothyroidism, rheumatoid arthritis/psoriatic arthritis, fibromyalgia, irritable bowel syndrome, restless leg syndrome, GERD, chronic back pain, BALJIT, obesity. Past Medical History Past Medical History (Chronic Problems): Chronic Problems (Last Reviewed 09/01/18 @ 13:34 by MONICA Howard) Chronic cough (Chronic) Morbid obesity (Chronic) Fibromyalgia (Chronic) IBS (irritable bowel syndrome) (Chronic) Lumbar spinal stenosis (Chronic) Depression (Chronic) Rheumatoid arthritis (Chronic) Insomnia (Chronic) Diabetes mellitus (Chronic) GERD (gastroesophageal reflux disease) (Chronic) Restless leg syndrome (Chronic) Obstructive sleep apnea (Chronic) Peripheral neuropathy (Chronic) Hypothyroidism (Chronic) Chronic low back pain (Chronic) Psoriatic arthritis (Chronic) Type 2 diabetes mellitus (Chronic) Hypertension (Chronic) Medical History: Medical History (Last Reviewed 09/01/18 @ 13:34 by Madie Felton NP-Nery) Chronic cough (Chronic) R05 Morbid obesity (Chronic) E66.01 Fibromyalgia (Chronic) M79.7 IBS (irritable bowel syndrome) (Chronic) K58.9 Lumbar spinal stenosis (Chronic) M48.061 Depression (Chronic) F32.9 Rheumatoid arthritis (Chronic) M06.9 Insomnia (Chronic) G47.00 Diabetes mellitus (Chronic) E11.9 GERD (gastroesophageal reflux disease) (Chronic) K21.9 Restless leg syndrome (Chronic) G25.81 Obstructive sleep apnea (Chronic) G47.33 Peripheral neuropathy (Chronic) G62.9 Hypothyroidism (Chronic) E03.9 Chronic low back pain (Chronic) M54.5, G89.29 Psoriatic arthritis (Chronic) L40.50 Type 2 diabetes mellitus (Chronic) E11.9 Hypertension (Chronic) I10 Allergies No Known Allergies Allergy (Verified 09/12/18 19:09) Home Medications: Ambulatory Orders Medication Instructions Recorded Atenolol [Tenormin (beta rema)] 50 mg PO DAILY 02/20/13 Hydroxychloroquine [Plaquenil] 200 mg PO BIDCM 02/20/13 Gabapentin 400 mg PO 5X/DAY 05/05/13 Multivitamins,Therapeutic 1 tab PO DAILY 08/24/13 [Multivitamin] Duloxetine Hcl [Cymbalta] 30 mg PO DAILY 05/10/15 Levothyroxine [Synthroid] 50 mcg PO DAILY 01/23/16 Metformin(XR) [Glucophage Xr] 500 mg PO DAILY 04/20/18 Acetaminophen [Tylenol Tablet] 650 mg PO Q6H PRN PRN tab 04/22/18 omeprazole 40 mg capsule,delayed 40 mg PO DAILY 08/06/18 release clonazepam 0.5 mg tablet 0.5 mg PO DAILY PRN tab 09/01/18 fluticasone furoate 200 1 inh INHALATION QDAY #60 ea 09/01/18 mcg-vilanterol 25 mcg/dose inhalation powder Dicyclomine HCl [Bentyl] 20 mg PO TID PRN #20 cap 09/12/18 Calcium Carb/Vitamin D [Os-Lito 1 tablet PO BIDCM 09/13/18 500MG + D] Surgical History: Surgical History (Last Reviewed 09/13/18 @ 15:01 by MONICA Galvan) H/O lumbosacral spine surgery Z98.890 09/13/17 Surgical History: cholecystectomy, hysterectomy, total knee arthroplasty - BL TKR., - - R Reverse Shoulder replacement. Psychiatric History: Depression [employer] MA[employer] History: No pertinent [employer] MA[employer]GER history Lives: Alone Smoking Status: Never smoker Alcohol: None Drugs: None - *Family History Maternal History Items: - - Denies known maternal medical history including cardiac history. Paternal History Items: Diabetes, Heart Disease Review of Systems Constitutional: Denies: Chills, Fever, Weight Change HEENT: Denies: Head Aches, Sinus Congestion, Sinus Drainage Cardiovascular: Denies: Chest Pain, Palpitations Respiratory: Denies: Cough, Shortness of breath at rest, Sputum production Gastrointestinal: Reports: Abdominal Pain - Right side, Nausea. Denies: Constipation, Diarrhea, Vomiting Genitourinary: Denies: Dysuria Musculoskeletal: Denies: Joint Pain, Joint Tenderness Skin: Denies: Rash, Wounds Neurological: Denies: Numbness, Tingling, Focal weakness Psychiatric: Denies: Anxiety, Depression, Homicidal Ideations, Suicidal Ideations Hematologic/ Lymphatic: Denies: Easy Bruising, Easy Bleeding VTE Information - Inpt Only VTE Present on Admission: No VTE Mechan Device Prophylaxis: None VTE Pharm Prophylaxis ordered?: Yes - Physical Exam General: Alert, Oriented x3, Cooperative HEENT: Atraumatic, PERRLA, EOMI, Normocephalic Neck: Supple, No JVD, Negative Carotid Bruits Lungs: Clear to auscultation, Diminished Cardiovascular: Regular rate, Regular Rhythm, Normal S1, Normal S2, No murmurs Abdomen: Bowel Sounds Present, Soft, Non-Distended, Obese, Tender - Right side Extremities: No clubbing, No cyanosis, No edema, Capillary Refill Less than 3 Seconds Skin: No rashes, No breakdown Musculoskeletal: No Tenderness to Palpation of Joints or Extremities Neurological: Cranial nerves II-XII grossly intact, Neuro grossly intact Psych/Mental Status: Normal Affect, Appropriate Vital Signs Temp Pulse Resp BP Pulse Ox 98.3 F 87 16 148/69 H 98 09/13/18 11:01 09/13/18 13:00 09/13/18 13:00 09/13/18 13:00 09/13/18 13:00 Oxygen Delivery Method Room Air Weight: 216 lb 11.43 oz Body Mass Index (BMI) 43.7 Finger Stick Blood Glucose 164 Laboratory Tests Past 24 Hrs 09/13/18 09/13/18 09/13/18 12:10 12:10 12:30 WBC 10.4 RBC 5.03 Hgb 12.5 Hct 41.4 MCV 82.3 MCH 24.9 L MCHC 30.2 L RDW 15.3 H RDW Differential 46.1 H Plt Count 297 MPV 9.1 Immature Gran % (Auto) 0.400 Neut % (Auto) 84.4 H Lymph % (Auto) 8.8 L [place] % (Auto) 4.8 Eos % (Auto) 1.2 Baso % (Auto) 0.4 Absolute Neuts (auto) 8.8 H Absolute Lymphs (auto) 0.91 Total Counted Not Reportable Sodium 138 Potassium 4.1 Chloride 103 Carbon Dioxide 30.0 Anion Gap 5 BUN 10 Creatinine 0.76 Estim Creat Clear Calc 78.91 Est GFR (MDRD) Af Amer 96 Est GFR (MDRD) Non-Af 79 BUN/Creatinine Ratio 13.1 Glucose 111 H Calcium 8.8 Total Bilirubin 0.40 AST 12 L ALT 14 Alkaline Phosphatase 123 H Total Protein 7.7 Albumin 3.3 Globulin 4.4 H Albumin/Globulin Ratio 0.8 L Lipase 97 Urine Color Yellow Urine Clarity Clear Urine pH 6.5 Ur Specific [place] 1.010 Urine Protein Negative Urine Glucose (UA) Normal Urine Ketones Negative Urine Occult Blood 10 H Urine Nitrite Negative Urine Bilirubin Negative Urine Urobilinogen Normal Ur Leukocyte Esterase Negative Urine RBC 0 SEEN Urine WBC 0 SEEN Ur Squamous Epith Cells 0 SEEN Urine Bacteria 0 SEEN Urine Mucus 0 SEEN Assessment/Plan 1. Persistent right-sided abdominal pain-CT of abdomen completed yesterday shows mild constipation, otherwise no acute process. Urinalysis unremarkable. Bowel regimen for mild constipation. PRN pain regimen. LFTs, lipase, bilirubin, alk phos all within normal limits. 2. Type 2 diabetes mellitus-hold metformin regimen. Accu-Cheks ACHS with sliding scale insulin. 3. Hypertension-stable, continue home atenolol regimen. 4. Hypothyroidism-continue Synthroid regimen. 5. Rheumatoid arthritis/Psoriatic arthritis/Fibromyalgia/Chronic back pain/RLS- continue gabapentin, Plaquenil regimen. 6. Irritable bowel syndrome-continue home PRN Bentyl regimen. 7. GERD-continue omeprazole regimen. 8. BALJIT- continue home CPAP regimen. 9. Anxiety/depression-continue home clonazepam, duloxetine regimen. 10. Obesity-encourage diet and lifestyle modifications. Nutrition consult. DVT prophylaxis- Lovenox sc This patient was seen by MONICA Galvan under the supervision of Dr. Brennan. <Ramirez Brennan F - Last Filed: 09/13/18 16:00> History of Present Illness The patient is a 72 year old F [] Past Medical History Medical History: Medical History (Last Reviewed 09/01/18 @ 13:34 by RONDA HowardC) Chronic cough (Chronic) R05 Morbid obesity (Chronic) E66.01 Fibromyalgia (Chronic) M79.7 IBS (irritable bowel syndrome) (Chronic) K58.9 Lumbar spinal stenosis (Chronic) M48.061 Depression (Chronic) F32.9 Rheumatoid arthritis (Chronic) M06.9 Insomnia (Chronic) G47.00 Diabetes mellitus (Chronic) E11.9 GERD (gastroesophageal reflux disease) (Chronic) K21.9 Restless leg syndrome (Chronic) G25.81 Obstructive sleep apnea (Chronic) G47.33 Peripheral neuropathy (Chronic) G62.9 Hypothyroidism (Chronic) E03.9 Chronic low back pain (Chronic) M54.5, G89.29 Psoriatic arthritis (Chronic) L40.50 Type 2 diabetes mellitus (Chronic) E11.9 Hypertension (Chronic) I10 Allergies No Known Allergies Allergy (Verified 09/12/18 19:09) Surgical History: Surgical History (Last Reviewed 09/13/18 @ 15:01 by MONICA Galvan) H/O lumbosacral spine surgery Z98.890 09/13/17 - Physical Exam Vital Signs Temp Pulse Resp BP Pulse Ox 98.2 F 100 16 195/82 H 95 09/13/18 15:12 09/13/18 15:12 09/13/18 15:12 09/13/18 15:12 09/13/18 15:12 Oxygen Flow Rate (L/min) 2 Oxygen Delivery Method Nasal Cannula Weight: 257 lb 11.43 oz Body Mass Index (BMI) 52.0 Finger Stick Blood Glucose 164 Laboratory Tests Past 24 Hrs 09/13/18 09/13/18 09/13/18 12:10 12:10 12:30 WBC 10.4 RBC 5.03 Hgb 12.5 Hct 41.4 MCV 82.3 MCH 24.9 L MCHC 30.2 L RDW 15.3 H RDW Differential 46.1 H Plt Count 297 MPV 9.1 Immature Gran % (Auto) 0.400 Neut % (Auto) 84.4 H Lymph % (Auto) 8.8 L [place] % (Auto) 4.8 Eos % (Auto) 1.2 Baso % (Auto) 0.4 Absolute Neuts (auto) 8.8 H Absolute Lymphs (auto) 0.91 Total Counted Not Reportable Sodium 138 Potassium 4.1 Chloride 103 Carbon Dioxide 30.0 Anion Gap 5 BUN 10 Creatinine 0.76 Estim Creat Clear Calc 78.91 Est GFR (MDRD) Af Amer 96 Est GFR (MDRD) Non-Af 79 BUN/Creatinine Ratio 13.1 Glucose 111 H Calcium 8.8 Total Bilirubin 0.40 AST 12 L ALT 14 Alkaline Phosphatase 123 H Total Protein 7.7 Albumin 3.3 Globulin 4.4 H Albumin/Globulin Ratio 0.8 L Lipase 97 Urine Color Yellow Urine Clarity Clear Urine pH 6.5 Ur Specific [place] 1.010 Urine Protein Negative Urine Glucose (UA) Normal Urine Ketones Negative Urine Occult Blood 10 H Urine Nitrite Negative Urine Bilirubin Negative Urine Urobilinogen Normal Ur Leukocyte Esterase Negative Urine RBC 0 SEEN Urine WBC 0 SEEN Ur Squamous Epith Cells 0 SEEN Urine Bacteria 0 SEEN Urine Mucus 0 SEEN POC Glucose 09/13/18 15:37 POC Glucose 95 Code Visit Addendum: Dr. Brennan I personally examined the patient and reviewed the chart. I agree with the above. 72-year-old female presenting with right lower quadrant abdominal pain since Saturday. She says is been getting worse and has gone from having an int ermittent intensity to having a constant intensity. She had a CT scan done yesterday in the ER with no abnormality and she has a history of a hysterectomy and oophorectomy. Also her white count is unremarkable as are the rest of her labs, she has been afebrile. On exam it seems to be more abdominal wall than anything else and there is nothing on CT scan to indicate that could be. Of note it does appear that she has some constipation and therefore will treat that with MiraLAX and a stool softener. OBSV E&M: [id number] Initial observation care L3
[2018-09-13 15:12] VITALS: BP 195/82; PULSE 100; RESP 16; TEMP 36.8; O2SAT 95
[2018-09-13] MEDS: Senna/Docusate Sodium 1 Tablet 2 TABLET PO (15:25)
[2018-09-13] MEDS: Polyethylene Glycol 3350 17 GM PACKET PO ×2 (15:25→22:26)
[2018-09-13 15:45] LABS: Bedside Glucose 95 mg/dL (70-110)
--- NOTE | 2018-09-13 15:52 | NURSING ---
called son freeman and gave a update on pt condition.
[2018-09-13] MEDS: Glucerna Shake 120 ML LIQUID PO (17:29)
[2018-09-13] MEDS: Gabapentin 400 MG Capsule PO ×2 (17:29→22:26)
[2018-09-13] MEDS: Hydroxychloroquine 200 MG Tablet PO (17:29)
[2018-09-13 20:27] VITALS: BP 182/90; PULSE 80; RESP 18; TEMP 36.6; O2SAT 98
[2018-09-13] MEDS: clonazePAM 0.5 MG Tablet PO (20:35)
[2018-09-13] MEDS: Acetaminophen 325 MG Tablet 650 MG PO (20:35)
[2018-09-13] MEDS: Dicyclomine 10 MG Capsule 20 MG PO (20:36)
[2018-09-13] MEDS: 0.9% NaCl Peripheral Flush Adult/Peds IV (20:37)
[2018-09-13 22:28] VITALS: BP 192/88
[2018-09-13 22:36] LABS: Bedside Glucose 113 mg/dL (70-110)
[2018-09-13] MEDS: oxyCODONE 5 MG Tablet PO (23:19)
[2018-09-13] MEDS: Losartan Potassium 50 MG Tablet PO (23:20)
[2018-09-14 00:55] VITALS: BP 170/85
[2018-09-14 02:31] VITALS: BP 166/81; PULSE 70; RESP 18; TEMP 36.5; O2SAT 99
[2018-09-14] MEDS: oxyCODONE 5 MG Tablet PO (03:23)
[2018-09-14 05:41] LABS: Absolute Lymphocyte Count 1.15 X10^3/ul (0.83-4.51); Basophil# 0.03 X10^3/uL; Basophil% 0.3 % (0-1); Hematocrit 39.3 % (37-47); Hemoglobin 11.8 g/dl (12.0-15.0); Lymphocyte # 1.15 X10^3/ul (4.0); Lymphocyte % 11.2 % (19-41); Mean Corpuscular Hgb 24.5 pg (27.0-32.0); Mean Corpuscular Volume 81.7 fL (81-99); Mean Platelet Vol. 9.5 fl (6.2-12.0); Monocyte# 0.86 X10^3/uL; Monocyte% 8.4 % (0-10); Neutrophil # 7.96 X10^3/uL (2.7-7.7); Neutrophil % 77.8 % (47-70); Platelet Count 288 K/mm3 (150-450); RBC Distribution Width CV 15.2 % (11.6-14.6); RBC Distribution Width SD 45.3 fl (35.1-43.9); Red Blood Count 4.81 M/mm3 (4.2-5.4); White Blood Count 10.2 K/mm3 (4.4-11.0)
[2018-09-14 05:46] LABS: POSITIVE COUNT NO; POSITIVE DIFFERENTIAL NO; POSITIVE MORPHOLOGY NO
[2018-09-14 05:56] LABS: Anion Gap 4 (5-15); BUN 7 mg/dL (7-18); BUN/Creat Ratio 10.6 RATIO (10-20); Chloride 104 mmol/L (98-107); Creatinine, Serum 0.66 mg/dL (0.55-1.02); EST Glomerular Filtration Rate 93 mL/min (>60); Est Glom Filt Rate - Afr Amer 113 mL/min (>60); Estimated Creatinine Clearance 93.84 ml/min; Glucose 99 mg/dL (74-106); Potassium 3.9 mmol/L (3.5-5.1); Sodium Level 140 mmol/L (136-145)
[2018-09-14] MEDS: Gabapentin 400 MG Capsule PO ×2 (06:14→08:00)
[2018-09-14] MEDS: Levothyroxine 50 MCG Tablet PO (06:14)
[2018-09-14 06:45] LABS: Bedside Glucose 117 mg/dL (70-110)
[2018-09-14 07:47] VITALS: BP 155/74; PULSE 80; RESP 18; TEMP 36.8; O2SAT 97
[2018-09-14] MEDS: Polyethylene Glycol 3350 17 GM PACKET PO (07:58)
[2018-09-14] MEDS: Hydroxychloroquine 200 MG Tablet PO (07:59)
[2018-09-14] MEDS: Losartan Potassium 50 MG Tablet PO (08:00)
[2018-09-14] MEDS: DULoxetine Hcl 30 MG Capsule PO (08:00)
[2018-09-14] MEDS: Pantoprazole Sodium 40 MG Tablet PO (08:00)
[2018-09-14] MEDS: Senna/Docusate Sodium 1 Tablet 2 TABLET PO (08:01)
[2018-09-14] MEDS: Atenolol 50 MG Tablet PO (08:01)
[2018-09-14] MEDS: Acetaminophen 325 MG Tablet 650 MG PO (08:03)
[2018-09-14] MEDS: Enoxaparin 40 MG/0.4 ML Syringe SC (09:27)
[2018-09-14] MEDS: Dicyclomine 10 MG Capsule 20 MG PO (09:33)
--- NOTE | 2018-09-14 11:20 | DCINST_ITS ---
You will use the following diet at home:: Calorie/Carbohydrate Controlled (specify 1200, 1400, etc) Discharge Activity: Return to Normal Activity Call your doctor if you observe: Shortness of breath, Dizziness, Fainting spells, Chest pain Allergies/Adverse Reactions: Allergies No Known Allergies Allergy (Verified 09/12/18 19:09) Medications to take at Discharge Atenolol [Tenormin (beta rema)] 50 mg PO DAILY 02/20/13 Hydroxychloroquine [Plaquenil] 200 mg PO BIDCM 02/20/13 Gabapentin 400 mg PO 5X/DAY 05/05/13 Multivitamins,Therapeutic [Multivitamin] 1 tab PO DAILY 08/24/13 Duloxetine Hcl [Cymbalta] 30 mg PO DAILY 05/10/15 Levothyroxine [Synthroid] 50 mcg PO DAILY 01/23/16 Metformin(XR) [Glucophage Xr] 500 mg PO DAILY 04/20/18 Acetaminophen [Tylenol Tablet] 650 mg PO Q6H PRN PRN tab 04/22/18 omeprazole 40 mg capsule,delayed release 40 mg PO DAILY 08/06/18 clonazepam 0.5 mg tablet 0.5 mg PO DAILY PRN tab 09/01/18 fluticasone furoate 200 mcg-vilanterol 25 mcg/dose inhalation powder 1 inh INHALATION QDAY #60 ea 09/01/18 Dicyclomine HCl [Bentyl] 20 mg PO TID PRN #20 cap 09/12/18 Calcium Carb/Vitamin D [Os-Lito 500MG + D] 1 tablet PO BIDCM 09/13/18 Losartan Potassium [Cozaar] 50 mg PO DAILY #30 tablet 09/14/18 Polyethylene Glycol 3350 [Miralax] 17 gm PO DAILY #30 packet 09/14/18 The following prescriptions were given: Losartan Potassium [Cozaar] 50 mg PO DAILY #30 tablet Polyethylene Glycol 3350 [Miralax] 17 gm PO DAILY #30 packet Primary Care Physician: Fadumo Mandel DO [Primary Care Provider] - Please follow up with your Primary Care Physician in: 1 Week Test Results: Test results from this visit will be discussed in further detail at your follow- up appointment, if applicable. Proposed Discharge Date: 09/14/18
--- NOTE | 2018-09-14 11:21 | PCM.DC.SUM ---
<Joanna Pierson - Last Filed: 09/14/18 11:26> Discharge Date and Diagnosis Date of Admission: 09/13/18 Date of Discharge: 09/14/18 - Primary Discharge Diagnosis 1. Persistent right-sided abdominal pain, musculoskeletal and/or mild constipation 2. Type 2 diabetes mellitus 3. Hypertension 4. Hypothyroidism 5. Rheumatoid arthritis/Psoriatic arthritis/Fibromyalgia/Chronic back pain/RLS 6. Irritable bowel syndrome 7. GERD 8. BALJIT 9. Anxiety/depression 10. Obesity - Secondary Discharge Diagnosis Chronic Problems (Last Reviewed 09/01/18 @ 13:34 by Madie Felton, PROSPER-C) Chronic cough (Chronic) Morbid obesity (Chronic) Fibromyalgia (Chronic) IBS (irritable bowel syndrome) (Chronic) Lumbar spinal stenosis (Chronic) Depression (Chronic) Rheumatoid arthritis (Chronic) Insomnia (Chronic) Diabetes mellitus (Chronic) GERD (gastroesophageal reflux disease) (Chronic) Restless leg syndrome (Chronic) Obstructive sleep apnea (Chronic) Peripheral neuropathy (Chronic) Hypothyroidism (Chronic) Chronic low back pain (Chronic) Psoriatic arthritis (Chronic) Type 2 diabetes mellitus (Chronic) Hypertension (Chronic) Hospital Course and Treatment Operations: None Procedures: None Summary of Care Provided: The patient is a 72 year old F admitted 09/13/2018 due to right-sided abdominal pain. 1. Persistent right-sided abdominal pain-CT of abdomen 09/12/2018 showed mild constipation, otherwise no acute process. Urinalysis unremarkable. LFTs, lipase, bilirubin, alk phos all within normal limits. Patient was started on bowel regimen for mild constipation with improvement in right-sided abdominal pain. Continue daily MiraLAX at discharge. Suspect symptoms are also related to musculoskeletal as well given underlying chronic pain syndromes. Follow-up with primary care provider in 1 week. 2. Type 2 diabetes mellitus-continue home metformin regimen. 3. Hypertension-above goal during admission, continue home atenolol regimen. Additionally started on losartan 50 mg daily. Will need further monitoring and outpatient follow-up with primary care provider. 4. Hypothyroidism-continue Synthroid regimen. 5. Rheumatoid arthritis/Psoriatic arthritis/Fibromyalgia/Chronic back pain/RLS-continue gabapentin, Plaquenil regimen. Follows with Dr. Rosas, continue outpatient follow-up for chronic pain. 6. Irritable bowel syndrome-continue home PRN Bentyl regimen. 7. GERD-continue omeprazole regimen. 8. BALJIT- continue home CPAP regimen. Follows with Dr. Mckenna, pulmonary medicine. 9. Anxiety/depression-continue home clonazepam, duloxetine regimen. 10. Obesity-encourage diet and lifestyle modifications. General: Alert, Oriented x3, Cooperative HEENT: Atraumatic, PERRLA, EOMI, Normocephalic Neck: Supple, No JVD, Negative Carotid Bruits Lungs: Clear to auscultation, Diminished Cardiovascular: Regular rate, Regular Rhythm, Normal S1, Normal S2, No murmurs Abdomen: Bowel Sounds Present, Soft, Non-Distended, Obese, Tender - Right side Extremities: No clubbing, No cyanosis, No edema, Capillary Refill Less than 3 Seconds Skin: No rashes, No breakdown Musculoskeletal: No Tenderness to Palpation of Joints or Extremities Neurological: Cranial nerves II-XII grossly intact, Neuro grossly intact Psych/Mental Status: Normal Affect, Appropriate Patient seen and examined prior to discharge. Physical assessment as noted above. Patient is stable for discharge with follow up recommendations as noted above. This patient was seen by MONICA Galvan under the supervision of Dr. Brennan. - Physical Exam Vital Signs Temp Pulse Resp BP Pulse Ox 98.2 F 80 18 166/81 H 97 09/14/18 07:47 09/14/18 07:47 09/14/18 07:47 09/14/18 02:31 09/14/18 07:47 Oxygen Flow Rate (L/min) 2 Oxygen Delivery Method Nasal Cannula Weight: 257 lb 11.43 oz Body Mass Index (BMI) 52.0 Finger Stick Blood Glucose 164 Intake and Output for Last 24 Hours 09/12/18 09/13/18 09/14/18 23:59 23:59 23:59 Intake Total 300 / 300 400 / 400 Output Total 1000 / 1000 Balance 300 / 300 -600 / -600 Laboratory Tests Past 24 Hrs 09/13/18 09/13/18 09/13/18 12:10 12:10 12:30 WBC 10.4 RBC 5.03 Hgb 12.5 Hct 41.4 MCV 82.3 MCH 24.9 L MCHC 30.2 L RDW 15.3 H RDW Differential 46.1 H Plt Count 297 MPV 9.1 Immature Gran % (Auto) 0.400 Neut % (Auto) 84.4 H Lymph % (Auto) 8.8 L Jay % (Auto) 4.8 Eos % (Auto) 1.2 Baso % (Auto) 0.4 Absolute Neuts (auto) 8.8 H Absolute Lymphs (auto) 0.91 Total Counted Not Reportable Sodium 138 Potassium 4.1 Chloride 103 Carbon Dioxide 30.0 Anion Gap 5 BUN 10 Creatinine 0.76 Estim Creat Clear Calc 78.91 Est GFR (MDRD) Af Amer 96 Est GFR (MDRD) Non-Af 79 BUN/Creatinine Ratio 13.1 Glucose 111 H Calcium 8.8 Total Bilirubin 0.40 AST 12 L ALT 14 Alkaline Phosphatase 123 H Total Protein 7.7 Albumin 3.3 Globulin 4.4 H Albumin/Globulin Ratio 0.8 L Lipase 97 Urine Color Yellow Urine Clarity Clear Urine pH 6.5 Ur Specific [place] 1.010 Urine Protein Negative Urine Glucose (UA) Normal Urine Ketones Negative Urine Occult Blood 10 H Urine Nitrite Negative Urine Bilirubin Negative Urine Urobilinogen Normal Ur Leukocyte Esterase Negative Urine RBC 0 SEEN Urine WBC 0 SEEN Ur Squamous Epith Cells 0 SEEN Urine Bacteria 0 SEEN Urine Mucus 0 SEEN 09/14/18 09/14/18 04:50 04:50 WBC 10.2 RBC 4.81 Hgb 11.8 L Hct 39.3 MCV 81.7 MCH 24.5 L MCHC 30.0 L RDW 15.2 H RDW Differential 45.3 H Plt Count 288 MPV 9.5 Immature Gran % (Auto) 0.300 Neut % (Auto) 77.8 H Lymph % (Auto) 11.2 L Jay % (Auto) 8.4 Eos % (Auto) 2.0 Baso % (Auto) 0.3 Absolute Neuts (auto) 8.0 H Absolute Lymphs (auto) 1.15 Total Counted Not Reportable Sodium 140 Potassium 3.9 Chloride 104 Carbon Dioxide 32.0 Anion Gap 4 L BUN 7 Creatinine 0.66 Estim Creat Clear Calc 93.84 Est GFR (MDRD) Af Amer 113 Est GFR (MDRD) Non-Af 93 BUN/Creatinine Ratio 10.6 Glucose 99 Calcium 9.0 Total Bilirubin AST ALT Alkaline Phosphatase Total Protein Albumin Globulin Albumin/Globulin Ratio Lipase Urine Color Urine Clarity Urine pH Ur Specific [place] Urine Protein Urine Glucose (UA) Urine Ketones Urine Occult Blood Urine Nitrite Urine Bilirubin Urine Urobilinogen Ur Leukocyte Esterase Urine RBC Urine WBC Ur Squamous Epith Cells Urine Bacteria Urine Mucus POC Glucose 09/14/18 09/13/18 09/13/18 06:28 22:15 15:37 POC Glucose 117 H 113 H 95 Discharge Diet: Low fat/ Low Cholesterol, Carb Control Diet Discharge Activity: Return to Normal Activity Call your doctor if you observe: Shortness of breath, Dizziness, Fainting spells, Chest pain Home Medications: Medications to take at Discharge Atenolol [Tenormin (beta rema)] 50 mg PO DAILY 02/20/13 Hydroxychloroquine [Plaquenil] 200 mg PO BIDCM 02/20/13 Gabapentin 400 mg PO 5X/DAY 05/05/13 Multivitamins,Therapeutic [Multivitamin] 1 tab PO DAILY 08/24/13 Duloxetine Hcl [Cymbalta] 30 mg PO DAILY 05/10/15 Levothyroxine [Synthroid] 50 mcg PO DAILY 01/23/16 Metformin(XR) [Glucophage Xr] 500 mg PO DAILY 04/20/18 Acetaminophen [Tylenol Tablet] 650 mg PO Q6H PRN PRN tab 04/22/18 omeprazole 40 mg capsule,delayed release 40 mg PO DAILY 08/06/18 clonazepam 0.5 mg tablet 0.5 mg PO DAILY PRN tab 09/01/18 fluticasone furoate 200 mcg-vilanterol 25 mcg/dose inhalation powder 1 inh INHALATION QDAY #60 ea 09/01/18 Dicyclomine HCl [Bentyl] 20 mg PO TID PRN #20 cap 09/12/18 Calcium Carb/Vitamin D [Os-Lito 500MG + D] 1 tablet PO BIDCM 09/13/18 Losartan Potassium [Cozaar] 50 mg PO DAILY #30 tablet 09/14/18 Polyethylene Glycol 3350 [Miralax] 17 gm PO DAILY #30 packet 09/14/18 Following Prescrptions Were Given to Patient: Losartan Potassium [Cozaar] 50 mg PO DAILY #30 tablet Polyethylene Glycol 3350 [Miralax] 17 gm PO DAILY #30 packet Primary Care Physician: Fadumo Mandel DO [Primary Care Provider] - Please follow up with your Primary Care Physician in: 1 Week Disposition: Home Minutes spent on discharge:: 35 Patient Condition:: Stable Medical Necessity - Tobacco Use Smoking Status: Never smoker Meaningful Use Info Meaningful Use Diagnoses (Choose all that apply): None applicable <Ramirez Brennan - Last Filed: 09/14/18 11:41> Discharge Date and Diagnosis - Secondary Discharge Diagnosis Chronic Problems (Last Reviewed 09/01/18 @ 13:34 by RONDA HowardC) Chronic cough (Chronic) Morbid obesity (Chronic) Fibromyalgia (Chronic) IBS (irritable bowel syndrome) (Chronic) Lumbar spinal stenosis (Chronic) Depression (Chronic) Rheumatoid arthritis (Chronic) Insomnia (Chronic) Diabetes mellitus (Chronic) GERD (gastroesophageal reflux disease) (Chronic) Restless leg syndrome (Chronic) Obstructive sleep apnea (Chronic) Peripheral neuropathy (Chronic) Hypothyroidism (Chronic) Chronic low back pain (Chronic) Psoriatic arthritis (Chronic) Type 2 diabetes mellitus (Chronic) Hypertension (Chronic) Hospital Course and Treatment Summary of Care Provided: The patient is a 72 year old F [] - Physical Exam Vital Signs Temp Pulse Resp BP Pulse Ox 98.2 F 80 18 166/81 H 97 09/14/18 07:47 09/14/18 07:47 09/14/18 07:47 09/14/18 02:31 09/14/18 07:47 Oxygen Flow Rate (L/min) 2 Oxygen Delivery Method Nasal Cannula Weight: 257 lb 11.43 oz Body Mass Index (BMI) 52.0 Finger Stick Blood Glucose 164 Intake and Output for Last 24 Hours 09/12/18 09/13/18 09/14/18 23:59 23:59 23:59 Intake Total 300 / 300 400 / 400 Output Total 1000 / 1000 Balance 300 / 300 -600 / -600 Laboratory Tests Past 24 Hrs 09/13/18 09/13/18 09/13/18 12:10 12:10 12:30 WBC 10.4 RBC 5.03 Hgb 12.5 Hct 41.4 MCV 82.3 MCH 24.9 L MCHC 30.2 L RDW 15.3 H RDW Differential 46.1 H Plt Count 297 MPV 9.1 Immature Gran % (Auto) 0.400 Neut % (Auto) 84.4 H Lymph % (Auto) 8.8 L Jay % (Auto) 4.8 Eos % (Auto) 1.2 Baso % (Auto) 0.4 Absolute Neuts (auto) 8.8 H Absolute Lymphs (auto) 0.91 Total Counted Not Reportable Sodium 138 Potassium 4.1 Chloride 103 Carbon Dioxide 30.0 Anion Gap 5 BUN 10 Creatinine 0.76 Estim Creat Clear Calc 78.91 Est GFR (MDRD) Af Amer 96 Est GFR (MDRD) Non-Af 79 BUN/Creatinine Ratio 13.1 Glucose 111 H Calcium 8.8 Total Bilirubin 0.40 AST 12 L ALT 14 Alkaline Phosphatase 123 H Total Protein 7.7 Albumin 3.3 Globulin 4.4 H Albumin/Globulin Ratio 0.8 L Lipase 97 Urine Color Yellow Urine Clarity Clear Urine pH 6.5 Ur Specific [place] 1.010 Urine Protein Negative Urine Glucose (UA) Normal Urine Ketones Negative Urine Occult Blood 10 H Urine Nitrite Negative Urine Bilirubin Negative Urine Urobilinogen Normal Ur Leukocyte Esterase Negative Urine RBC 0 SEEN Urine WBC 0 SEEN Ur Squamous Epith Cells 0 SEEN Urine Bacteria 0 SEEN Urine Mucus 0 SEEN 09/14/18 09/14/18 04:50 04:50 WBC 10.2 RBC 4.81 Hgb 11.8 L Hct 39.3 MCV 81.7 MCH 24.5 L MCHC 30.0 L RDW 15.2 H RDW Differential 45.3 H Plt Count 288 MPV 9.5 Immature Gran % (Auto) 0.300 Neut % (Auto) 77.8 H Lymph % (Auto) 11.2 L Jay % (Auto) 8.4 Eos % (Auto) 2.0 Baso % (Auto) 0.3 Absolute Neuts (auto) 8.0 H Absolute Lymphs (auto) 1.15 Total Counted Not Reportable Sodium 140 Potassium 3.9 Chloride 104 Carbon Dioxide 32.0 Anion Gap 4 L BUN 7 Creatinine 0.66 Estim Creat Clear Calc 93.84 Est GFR (MDRD) Af Amer 113 Est GFR (MDRD) Non-Af 93 BUN/Creatinine Ratio 10.6 Glucose 99 Calcium 9.0 Total Bilirubin AST ALT Alkaline Phosphatase Total Protein Albumin Globulin Albumin/Globulin Ratio Lipase Urine Color Urine Clarity Urine pH Ur Specific [place] Urine Protein Urine Glucose (UA) Urine Ketones Urine Occult Blood Urine Nitrite Urine Bilirubin Urine Urobilinogen Ur Leukocyte Esterase Urine RBC Urine WBC Ur Squamous Epith Cells Urine Bacteria Urine Mucus POC Glucose 09/14/18 09/14/18 09/13/18 11:13 06:28 22:15 POC Glucose 128 H 117 H 113 H 09/13/18 15:37 POC Glucose 95 Code Visit Addendum: Dr. Brennan I personally examined the patient and reviewed the chart. I agree with the above. 72-year-old female presenting with right lower quadrant abdominal pain since Saturday. She did present to the ER on Saturday and and had a CT scan and labs which were negative and if she was sent home. She came back on Saturday and was admitted for an observation. On exam it was felt that she possibly had constipation is well his abdominal muscle pain. This was explained to her and she was started on MiraLAX and Senokot for the constipation which she was advised to continue at home. Also discussed with her that today there is nothing else that was found her labs still remain normal and she was feeling a little bit better after having a bowel movement. I discussed with her that she could potentially go home and follow-up with her primary care doctor as an outpatient. She agrees with the plan and feels like she would like to go home today. OBSV E&M: 13888 Observation care discharge
[2018-09-14 11:26] LABS: Bedside Glucose 128 mg/dL (70-110)
[2018-09-14 12:30] VITALS: BP 145/75; PULSE 77; RESP 18; TEMP 36.7; O2SAT 96
[2018-09-14 13:03] VITALS: BP 145/75; PULSE 77; RESP 18; TEMP 36.7; O2SAT 96
== END 2018-09-14 13:03 | disposition home or self-care (01) ==
LOC: ED 14:34 → MS3 14:42
PROVIDERS: Admitting Provider Family Medicine; Emergency Provider Emergency Medicine; Family Provider Internal Medicine; PCP Internal Medicine; Visit Provider Family Medicine
DX: R10.31 Right lower quadrant pain (principal); E11.9 Type 2 diabetes mellitus without complications; I10 Essential (primary) hypertension; E03.9 Hypothyroidism, unspecified; M06.9 Rheumatoid arthritis, unspecified; G47.33 Obstructive sleep apnea (adult) (pediatric); K21.9 Gastro-esophageal reflux disease without esophagitis; F41.9 Anxiety disorder, unspecified; F32.9 Major depressive disorder, single episode, unspecified; M79.7 Fibromyalgia; K58.9 Irritable bowel syndrome, unspecified; M48.061 Spinal stenosis, lumbar region without neurogenic claudication; G62.9 Polyneuropathy, unspecified; E66.01 Morbid (severe) obesity due to excess calories; Z68.43 Body mass index [BMI] 50.0-59.9, adult; Z71.3 Dietary counseling and surveillance; G89.29 Other chronic pain; G25.81 Restless legs syndrome; Z79.899 Other long term (current) drug therapy; Z79.84 Long term (current) use of oral hypoglycemic drugs
CPT/HCPCS: 36415; 80048; 80053; 81001; 82962; 83690; 85025; 96361; 96372; 96374; 96375; 96376; 99218; 99285; J7030; J7050; A4216; G0378; J2405

== ENCOUNTER 2018-09-15 10:23 | Emergency (ER) | payer MEDICARE, SELFPAY ==
[2018-09-13 15:01] VITALS: BMI 52.0
[2018-09-15 10:24] VITALS: BP 168/80; PULSE 67; RESP 18; TEMP 36.7; O2SAT 90; BMI 53.6
--- NOTE | 2018-09-15 11:10 | CT_ITS ---
STUDY: CT ABDOMEN AND PELVIS WITHOUT CONTRAST REASON FOR EXAM: Female, 72 years old. Abdominal pain on the right into the back worsening since CT scan 3 days ago. RADIATION DOSAGE (If Supplied By Facility): CTDIvol = ( 24.14 ) mGy, DLP = ( 1163.82 ) mGycm TECHNIQUE: Transaxial images were obtained from the dome of the diaphragm to the symphysis pubis with oral contrast, and without intravenous contrast. Sagittal and coronal images were reconstructed. Individualized dose optimization techniques were used for this CT. COMPARISON: CT abdomen and pelvis 09/12/2018. FINDINGS: Body wall soft tissues: There is hazy induration in subcutaneous fat of the right flank, that appears to be associated with mild thickening of the skin. Portions of this process are excluded from the [id number] secondary to body habitus constraints. Similar features are not seen in the left flank. Correlate clinically for the possibility of right leg cellulitis. Minimal fat filled right inguinal hernia. Osseous structures: Multilevel spinal fixation. Chronic appearing mild wedge compression deformity at the superior most level of fixation T10 associated with kyphosis across T9-T10 with buttressing anterior osteophytes. The surgical construct appears intact and is associated with a multilevel laminectomy. No acute osseous process is apparent. Inferior chest: Trace right effusion. Mild lung base atelectasis. Normal distal esophagus. Mild cardiomegaly. Hepatobiliary: Hepatic steatosis with hepatomegaly, craniocaudal liver 19.3 cm. Gallbladder not visualized and presumably surgically absent. No surgical clips are present in the gallbladder fossa. Nondilated intrahepatic and extrahepatic biliary tree. Pancreas: Mild atrophy. Spleen: Normal. Adrenal glands: Low-density left adrenal nodule 7 mm most consistent with benign lipid rich adrenal adenoma. Right adrenal gland normal. Urogenital: Normal bilateral kidneys, collecting systems, ureters, urinary bladder. Uterus is absent. There is no adnexal mass or cyst. Pelvic floor and sidewalls and retroperitoneum: A few small lymph nodes none pathologically enlarged. Vasculature: Minimal atherosclerosis. Stomach: No acute process. Small bowel and mesentery: No acute process. Large bowel: The appendix is not visualized and may be surgically absent. Unremarkable large bowel and rectum. Free fluid or free air: None. CT/Abdomen/Pelvis without Cont IMPRESSION: No acute intra-abdominal or intrapelvic process is evident. Induration of the subcutaneous fat of the right flank associated with skin thickening. Correlate clinically for cellulitis of the body wall soft tissues. Physical examination recommended. Electronically Signed: Kole Perez MD at 13:24 EDT Tel , Service support ,
--- NOTE | 2018-09-15 11:13 | ED.VISSUMM ---
- ER Visit Summary Date of Service: 09/15/18 Chief Complaint: [] Right-sided abdominal pain intractable vomiting discharge Saturday History of Present Illness: The patient is a 72 F [] indicates she was admitted Saturday related to all the above she has had symptoms for a few days, the ED work-up at that time she reports unremarkable except for possible constipation she was admitted and treated she had multiple bowel movements despite that she indicates had persistent pain to the right side of her abdomen to the point that she can eat she feels weak and tired and she comes in for evaluation. She has history of cholecystectomy she had no other abdominal surgeries, prior kidney stone, she has irritable bowel syndrome and she has chronic intermittent abdominal discomfort she seen GI Dr. Gayle colonoscopies have been unremarkable she denies any other major issues Physical Examination: [] v signs are unremarkable see those reports General, no distress resting comfortably HEENT is generally unremarkable The neck is supple no adenopathy Cardiovascular, regular rate and rhythm Lungs, clear bilateral Abdomen, soft nontender M is a subjective vague pain to the right lower abdomen there is no rebound guarding or megaly she indicates the pain relates to her right flank palpation of the right flank reveals no gross ab normalities, the skin is unremarkable Extremities, no clubbing cyanosis or edema Neurologic, awake alert answering questions appropriately moving all 4 extremities Test Results: [] Emergency Department Course and Treatment: [] Her age and her complaints the fact she was admitted and just discharged with the last 12 hours and she returns for similar symptoms screening labs are obtained IV fluids pain management CT scan Patient screening labs CBC unremarkable, UA negative, abdominal flank CT shows nothing acute intra-abdominal,, there is no signs of inflammation in the pelvis of the right lower quadrant, they note they did not see the appendix the appendix was seen on the CT from the and that was negative The radiologist notes some nonspecific abnormalities involving the skin of the rt flank, skin folds etc. questions were this could be an area of cellulitis, and evaluation of this area this area is not warm there is no signs of redness skin lesion skin jenifer her entire skin exam is unremarkable except for multiple redundant skin folds due to her body habitus has had prior lumbar back surgery and even the lumbar back incisions are unremarkable, her abdominal exam shows no rebound guarding organomegaly rather vague pain to the right side of the abdomen that extends into her flank Patient asked to drink water. Discussed the test results with her we discussed inpatient versus outpatient management she would prefer to go home to manage as an outpatient and declined admission I explained the exact etiology of the recurrence of symptoms unclear She asked about the constipation, there is no signs of constipation which was apparently the inciting factor last time she has been having bowel habits, at this time she will use her Bentyl, follow-up with Dr. Gayle her GI doctor for her to bowel syndrome, stay in a bland diet and return for change in symptoms Treatment Plan: [] Disposition: [] Home stable declined admission Impression: [] Right-sided abdominal pain etiology unclear This note was generated with [employer] dictation software. It may contain incorrect words, spelling, and punctuation that were not noted in review of the chart prior to signing ED Disposition - Plan for ED Patient: Instructions: ED Abdominal Pain Unkn Cause Referrals: Fadumo Mandel DO [Primary Care Provider] -
[2018-09-15] MEDS: 0.9% Normal Saline 1,000 ML 125 ML IV (11:19)
[2018-09-15 11:21] LABS: Absolute Lymphocyte Count 0.87 X10^3/ul (0.83-4.51); Absolute Neutrophil Count 9.7 X10^3/uL (2.0-7.7); Basophil# 0.02 X10^3/uL; Basophil% 0.2 % (0-1); Eosinophil# 0.03 X10^3/uL; Eosinophils% 0.3 % (0-5); Hematocrit 39.1 % (37-47); Hemoglobin 11.8 g/dl (12.0-15.0); Lymphocyte # 0.87 X10^3/ul (4.0); Lymphocyte % 7.8 % (19-41); Mean Corp Hgb Conc 30.2 g/gl (32-36); Mean Corpuscular Hgb 24.6 pg (27.0-32.0); Mean Corpuscular Volume 81.5 fL (81-99); Mean Platelet Vol. 9.4 fl (6.2-12.0); Monocyte# 0.49 X10^3/uL; Monocyte% 4.4 % (0-10); Neutrophil # 9.67 X10^3/uL (2.7-7.7); Neutrophil % 86.8 % (47-70); POSITIVE COUNT NO; POSITIVE DIFFERENTIAL NO; POSITIVE MORPHOLOGY NO; Platelet Count 322 K/mm3 (150-450); RBC Distribution Width SD 44.2 fl (35.1-43.9); White Blood Count 11.1 K/mm3 (4.4-11.0)
[2018-09-15 11:33] LABS: AST(SGOT) 11 U/L (15-37); Alanine Aminotransfer ALT/SGPT 14 U/L (13-56); Alkaline Phosphatase 113 U/L (45-117); Anion Gap 9 (5-15); BUN 13 mg/dL (7-18); BUN/Creat Ratio 17.3 RATIO (10-20); Bilirubin, Direct 0.16 mg/dL (0.00-0.30); Chloride 99 mmol/L (98-107); Creatinine, Serum 0.75 mg/dL (0.55-1.02); EST Glomerular Filtration Rate 80 mL/min (>60); Est Glom Filt Rate - Afr Amer 97 mL/min (>60); Estimated Creatinine Clearance 96.82 ml/min; Globulin 4.4 g/dL (2.2-4.2); Glucose 119 mg/dL (74-106); Lipase 121 U/L (73-393); Potassium 3.9 mmol/L (3.5-5.1); Protein, Total 7.4 g/dL (6.4-8.2); Sodium Level 139 mmol/L (136-145)
[2018-09-15] MEDS: morphine 8 MG/ML Syringe IV (12:26)
[2018-09-15] MEDS: Ondansetron 4 MG/2 ML Vial IV (12:27)
[2018-09-15 12:31] VITALS: BP 173/78; PULSE 66; RESP 12; O2SAT 97
[2018-09-15 14:19] LABS: Bacteria 0 SEEN /hpf (None Seen); Mucous, Urine 0 SEEN /hpf (<or=2+); Red Blood Cells-Urine 0 SEEN /hpf (0-5); White Blood Cells 0 SEEN /hpf (0-5)
[2018-09-15 14:24] VITALS: BP 137/86; PULSE 68; RESP 19; O2SAT 99
[2018-09-15 14:24] LABS: Color, Urine Yellow (Yellow); Glucose, Dipstick Normal (Normal); Ketone-Dipstick 15 mg/dl (Negative); Leukocyte Esterase-Dipstick Negative /ul (Negative); Nitrite-Dipstick Negative (Negative); Occult Blood-Urine 10 /ul (Negative); Protein-Dipstick Negative (Negative); Urine Bilirubin Dipstick Negative (Negative); Urine Clarity Clear (Clear); Urine Urobilinogen Normal (Normal)
[2018-09-15] MEDS: 0.9% Normal Saline 1,000 ML 999 ML IV (14:24)
[2018-09-15 14:30] LABS: Squamous Epithelial Cells - UA 0-5 SEEN /hpf (5-10)
--- NOTE | 2018-09-15 15:08 | ED.DEP ---
ED Disposition - Plan for ED Patient: Instructions: ED Abdominal Pain Unkn Cause Referrals: Fadumo Mandel DO [Primary Care Provider] -
[2018-09-15 15:34] VITALS: BP 134/76; PULSE 69; RESP 20; O2SAT 93
== END 2018-09-15 15:35 | disposition home or self-care (01) ==
LOC: ED 11:33
PROVIDERS: Emergency Provider Emergency Medicine; Family Provider Internal Medicine; PCP Internal Medicine
DX: R10.9 Unspecified abdominal pain (principal); R11.2 Nausea with vomiting, unspecified; Z90.49 Acquired absence of other specified parts of digestive tract; Z87.442 Personal history of urinary calculi
CPT/HCPCS: 74176; 80048; 80076; 81001; 83690; 85025; 96361; 96374; 96375; 99285; J7030; A4216; J2405

== ENCOUNTER → 2018-12-23 15:13 | Outpatient (CLI) | payer MEDICARE, SELFPAY ==
[2018-12-10 09:11] VITALS: BMI 51.2
--- NOTE | 2018-12-23 15:16 | BI_ITS ---
MAMMOGRAPHY - BILATERAL SCREENING REASON FOR EXAM: Female, 73 years old. Routine annual screening examination. PERTINENT HISTORY: Non-contributory. Remote right excisional breast biopsy. TECHNIQUE: Digital bilateral breast darryl (3D mammographic acquisition) in the CC and MLO projections. 2-D mediolateral oblique (MLO) and craniocaudad (CC) views of both breasts were obtained. CAD: Full Field Digital Mammography with Computer Added Detection was performed. COMPARISON: Comparison is made with prior examination dated November 14, 2017 and March 24, 2016. FINDINGS: Breast Composition: The breasts are almost entirely fatty. There are no dominant masses or suspicious calcifications. Stable benign-appearing right axillary lymph nodes. No other significant abnormalities are identified. There has been no significant change since the prior study. BI/SCREEN MAMM (CAD) W/DARRYL BILAT IMPRESSION: Stable bilateral screening mammogram. Yearly follow-up mammogram recommended. (A) ASSESSMENT CATEGORY: BIRADS Category 2: Benign. A letter regarding these results will be sent to the patient by the facility within 30 days. Approximately 10% of breast cancers are not detected by mammography. A normal mammogram should not delay biopsy of a clinically suspicious abnormality. [id number] Electronically Signed: Roe Sy, at 8:33 EDT , Service support ,
--- NOTE | 2018-12-23 15:17 | BD_ITS ---
STUDY: DUAL ENERGY X-RAY ABSORPTIOMETRY / DXA REASON FOR EXAM: Female, 73 years old. The patient is postmenopausal. Loss of height. TECHNIQUE: Bone Mineral Density (BMD) measurements of both forearms were obtained. COMPARISON: Comparison is made with prior examination of March 22, 2015. FINDINGS: Right Forearm: g/cm2 (0.854) / T-score (-0.4) / Z-score (1.7) Left Forearm: g/cm2 (0.808) / T-score (-0.9) / Z-score (1.2) BD/Dexa Bone Density/Append Skel IMPRESSION: The patient is considered normal as outlined below according to World Walter Organization (WHO) criteria with a low fracture risk. Reference Information: The T-score is the number of standard deviations above or below the standard which is normal for young adults at their peak bone mineral density. The World Health Organization (WHO) interprets the T-scores as follows: Above -1 Normal bone density Between -1 and -2.5 Osteopenia Equal to / or below -2.5 Osteoporosis As a practical clinical guideline, osteopenia may be graded as follows: Mild -1 through -1.5 Moderate -1.6 through -2.0 Severe -2.1 through -2.4 The Z-score is the number of standard deviations above or below age-matched controls. A Z-score of less than -1.5 would be considered abnormal. References: 1. NIH Osteoporosis and Related Bone Diseases http://www.osteo.org 2. International Society for Clinical Densitometry http://www.iscd.org 3. National Osteoporosis Foundation http://www.nof.org Electronically Signed: Roe Sy, at 15:42 EDT , Service support ,
== END ==
PROVIDERS: Family Provider Internal Medicine; PCP Internal Medicine; Referring Provider Internal Medicine; Visit Provider Internal Medicine
DX: Z12.31 Encounter for screening mammogram for malignant neoplasm of breast (principal); Z78.0 Asymptomatic menopausal state
CPT/HCPCS: 77063; 77067; 77081

== ENCOUNTER → 2019-01-13 12:41 | Outpatient (CLI) | payer MEDICARE, SELFPAY ==
[2019-01-08 08:49] VITALS: BMI 51.2
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
== END ==
PROVIDERS: Family Provider Internal Medicine; PCP Internal Medicine; Referring Provider Orthopaedic Surgery; Visit Provider Orthopaedic Surgery
DX: M54.9 Dorsalgia, unspecified (principal)
CPT/HCPCS: 72082

== ENCOUNTER 2020-03-11 17:14 | Inpatient (IN) | payer MEDICARE, SELFPAY ==
[2019-01-15 09:39] VITALS: BMI 51.2
[2020-03-11] VITALS (8 sets, daily range): BP systolic 179–217; BP diastolic 69–92; PULSE 68–72; RESP 16–22; TEMP 36.4–37.2; O2SAT 95–98; BMI 54.5; BMI 53.4
--- NOTE | 2020-03-11 17:56 | CT_ITS ---
STUDY: CT BRAIN WITHOUT CONTRAST REASON FOR EXAM: Female, 74 years old. DOUBLE VISION IN RIGHT EYE, HX ASTHMA, IBS, RA, diabetes, HTN RADIATION DOSAGE (If Supplied By Facility): CTDIvol = ( 44.99 ) mGy, DLP = ( 846.73 ) mGycm TECHNIQUE: Transaxial CT imaging of the brain was performed without administration of intravenous contrast material. Individualized dose optimization techniques were used for this CT. COMPARISON: No relevant priors. FINDINGS: Normal soft tissue structures. Normal calvarium. Normal size ventricles and extra-axial spaces for the patient''s age. There are areas of decreased attenuation within the white matter tracts of the supratentorial brain, consistent with microvascular disease changes. Within the left occipital lobe there is a focus of low attenuation Normal basal ganglia and thalami. Normal brainstem. Normal cerebellum. There is no intracranial hemorrhage. There are no findings of an acute ischemic infarction. Normal visualized paranasal sinuses. CT/Brain/Head without Contrast IMPRESSION: Focus of low-attenuation within the left occipital lobe concerning for a subacute or chronic infarction although an underlying neoplastic process cannot be entirely excluded, consider MRI with contrast for further evaluation. Small vessel ischemia. Electronically Signed: Emily Hope MD at 18:38 EST Tel , Service support ,
--- NOTE | 2020-03-11 17:56 | EKG12_ITS ---
Test Reason : VISION PROBLEMS Blood Pressure : / mmHG Vent. Rate : 060 BPM Atrial Rate : 060 BPM P-R Int : 158 ms QRS Dur : 082 ms QT Int : 402 ms P-R-T Axes : 041 -05 018 degrees QTc Int : 402 ms Normal sinus rhythm Normal ECG Confirmed by YUN CABALLERO, MELIZA ([id number]), farmworker vegetable BERTO FRENCH ([id number]) on 03/14/2020 9:38:56 AM Referred By: TL Confirmed By:MELIZA MALCOLM MD
--- NOTE | 2020-03-11 17:58 | ED.DCSUM_ITS ---
History of Present Illness Chief Complaint: Vision Prob Informant: Patient Onset: Days - 3 Narrative: Patient reports seeing double vision out of her right eye since Saturday. Denies any head trauma. Denies any loss of vision. She does wear glasses last eye exam was 2 years ago. History of diabetes on medications. Denies any shading of vision. States she did deal with dental pain has pain up to her head did see the dentist 2 days ago. She had some teeth fixed and placed on antibiotics. Has a planned root canal. No stroke history. History of back surgery on medications. Has had MRIs in the past of her back. Also reports due to Covid, was not taking her medications up to 2 weeks ago. For blood pressure he is on atenolol 50 mg daily. Prior similar symptoms: No Past Medical History - Allergies and Home Meds Allergies/Adverse Reactions: Allergies No Known Allergies Allergy (Verified 03/11/20 17:17) Primary Care Physician: Fadumo Mandel DO [Primary Care Provider] - Past Medical History: - - Diabetes, chronic back pain, hypertension, rheumatoid arthritis, restless leg syndrome, obstructive sleep apnea Surgical History: cholecystectomy, hysterectomy, total knee arthroplasty, - Smoking Status: Never smoker - Family History Maternal Family History: Reports: - - Denies known maternal medical history including cardiac history. Paternal Family History: Reports: Diabetes, Heart Disease Physical Exam Vital Signs/Narrative: Vital Signs Temp Pulse Resp BP Pulse Ox 03/11/20 17:15 97.9 F 68 16 206/87 H 97 Inital Vital Signs reviewed: Yes General: Well nourished, Well developed, No Acute Distress Head: Normocephalic, Atraumatic Eyes: Perrl, EOMI, - - There is no cranial nerve palsy of the eyes. Covering each eye did not improve her double vision she states she sees a shadowing glare to the right when each eye was covered. ENT: Moist mucous membranes, No rhinorrhea Neck: Supple, Nontender Cardiovascular: Regular rate, Regular rhythm, No murmurs Respiratory: No distress, CTA bilaterally, Chest nontender Abdomen: Soft, Nontender, Nondistended, Normal bowel sounds Back: Nontender, Normal Inspection Extremities: Nontender, No edema Skin: Normal color, No rash Neurological: Alert, Oriented x3, Cranial nerves II-XII grossly intact, Normal Strength, Normal Sensation, - - Patient NIH of 0 Psychological: Normal affect, Normal Mood Diagnostic/Tx/Re-eval Clinical Impression(s) from Imaging Studies Brain CT 03/11/20 17:56 IMPRESSION: Focus of low-attenuation within the left occipital lobe concerning for a subacute or chronic infarction although an underlying neoplastic process cannot be entirely excluded, consider MRI with contrast for further evaluation. Small vessel ischemia. Electronically Signed: Emily Hope MD at 18:38 EST Tel , Service support , Abnormal Lab Results 03/11/20 03/11/20 03/11/20 18:00 18:00 18:00 WBC 9.9 RBC 4.83 Hgb 12.7 Hct 43.6 MCV 90.3 MCH 26.3 L MCHC 29.1 L RDW Std Deviation 50.4 H RDW Coeff of Ayush 15.3 H Plt Count 293 MPV 9.0 Immature Gran % (Auto) 0.500 Neut % (Auto) 74.9 H Lymph % (Auto) 15.8 L [place] % (Auto) 4.4 Eos % (Auto) 3.8 Baso % (Auto) 0.6 Absolute Neuts (auto) 7.4 Absolute Lymphs (auto) 1.57 Nucleated RBC % 0 PT 13.0 INR 1.0 APTT 26.1 Sodium 142 Potassium 4.2 Chloride 109 H Carbon Dioxide 31.0 Anion Gap 2 L BUN 18 Creatinine 1.08 H Estim Creat Clear Calc 88.36 Est GFR (MDRD) Af Amer 64 Est GFR (MDRD) Non-Af 53 L BUN/Creatinine Ratio 16.7 Glucose 133 H Calcium 9.0 - Medical Decision Making Patient exam NIH of 0, she exhibiting abnormalities of right hemianopsia with both eyes. There is no visual loss. She sees double vision to the right. There is no cranial nerve palsy on exam. She is 3 days and the symptoms, there outside the window for TPA. Blood pressure systolic 200s, she did take her atenolol. Labs are stable CT scan concerns for left occipital subacute infarct versus possible mass. This is the area of her deficit. EKG is sinus rhythm. Initial reevaluation her blood pressure systolic 206, heart rate in the 60s, initial order for hydralazine IV, however prior to administration her systolic heart rate improved to systolic 179 therefore this medication was held. I discussed with hospitalist Dr. Jennings for admission to PCU. ED Disposition - Plan for ED Patient: Disposition: Acute Care Hospital [facility] Diagnosis: CVA (cerebral vascular accident), right sided hemianopsia, Accelerated hypertension Referrals: Fadumo Mandel DO [Primary Care Provider] -
[2020-03-11 18:12] LABS: Absolute Lymphocyte Count 1.57 X10^3/uL (0.83-4.51); Absolute Neutrophil Count 7.4 X10^3/uL (2.0-7.7); Basophil# 0.06 X10^3/uL; Basophil% 0.6 % (0-1); Eosinophil# 0.38 X10^3/uL; Eosinophils% 3.8 % (0-5); Hematocrit 43.6 % (37-47); Hemoglobin 12.7 g/dL (12.0-15.0); Lymphocyte # 1.57 X10^3/ul (4.0); Lymphocyte % 15.8 % (19-41); Mean Corp Hgb Conc 29.1 g/dL (32-36); Mean Corpuscular Hgb 26.3 pg (27.0-32.0); Mean Corpuscular Volume 90.3 fL (81-99); Monocyte# 0.44 X10^3/uL; Monocyte% 4.4 % (0-10); NRBC Flagged by Analyzer 0 % (0-5); Neutrophil # 7.44 X10^3/uL (2.7-7.7); Neutrophil % 74.9 % (47-70); Platelet Count 293 K/mm3 (150-450); RBC Distribution Width CV 15.3 % (11.6-14.6); RBC Distribution Width SD 50.4 fl (35.1-43.9); Red Blood Count 4.83 M/mm3 (4.2-5.4); White Blood Count 9.9 K/mm3 (4.4-11.0)
[2020-03-11 18:25] LABS: Partial Thromboplast Time 26.1 Seconds (24.1-36.2)
[2020-03-11 18:27] LABS: Anion Gap 2 (5-15); BUN 18 mg/dL (7-18); BUN/Creat Ratio 16.7 RATIO (10-20); Chloride 109 mmol/L (98-107); Creatinine, Serum 1.08 mg/dL (0.55-1.02); EST Glomerular Filtration Rate 53 mL/min (>60); Est Glom Filt Rate - Afr Amer 64 mL/min (>60); Estimated Creatinine Clearance 88.36 ml/min; Glucose 133 mg/dL (74-106); Potassium 4.2 mmol/L (3.5-5.1); Sodium Level 142 mmol/L (136-145)
--- NOTE | 2020-03-11 19:16 | HP.PCM_ITS ---
Problem List (1) CVA (cerebral vascular accident) Status: Acute Qualifiers: CVA mechanism: unspecified Qualified Code(s): I63.9 - Cerebral infarction, unspecified (2) Accelerated hypertension Status: Acute (3) Morbid obesity Status: Chronic (4) Fibromyalgia Status: Chronic (5) IBS (irritable bowel syndrome) Status: Chronic Qualifiers: Irritable bowel syndrome type: unspecified Qualified Code(s): K58.9 - Irritable bowel syndrome without diarrhea (6) Lumbar spinal stenosis Status: Chronic Qualifiers: Neurogenic claudication status: unspecified Qualified Code(s): M48.061 - Spinal stenosis, lumbar region without neurogenic claudication (7) Depression Status: Chronic Qualifiers: Depression Type: unspecified Qualified Code(s): F32.9 - Major depressive disorder, single episode, unspecified (8) Rheumatoid arthritis Status: Chronic Qualifiers: Rheumatoid arthritis location: unspecified site Rheumatoid factor presence: unspecified presence Qualified Code(s): M06.9 - Rheumatoid arthritis, unspecified (9) Diabetes mellitus Status: Chronic Qualifiers: Diabetes mellitus type: type 2 Diabetes mellitus intermission coordinator insulin use: without custodial use Diabetes mellitus complication status: with other specified complication Qualified Code(s): E11.69 - Type 2 diabetes mellitus with other specified complication (10) GERD (gastroesophageal reflux disease) Status: Chronic Qualifiers: Esophagitis presence: esophagitis presence not specified Qualified Code(s): K21.9 - Gastro-esophageal reflux disease without esophagitis (11) Restless leg syndrome Status: Chronic (12) Obstructive sleep apnea Status: Chronic (13) Peripheral neuropathy Status: Chronic Qualifiers: Peripheral neuropathy type: polyneuropathy, unspecified (14) Hypothyroidism Status: Chronic Qualifiers: Hypothyroidism type: unspecified (15) Chronic low back pain Status: Chronic Qualifiers: Back pain laterality: unspecified Sciatica presence: unspecified whether sciatica present Qualified Code(s): M54.5 - Low back pain; G89.29 - Other chronic pain (16) Psoriatic arthritis Status: Chronic (17) Hypertension Status: Chronic Qualifiers: Hypertension type: essential hypertension History of Present Illness Date of Admission: 03/11/20 Chief Complaint: Double vision R eye The patient is a 74 y/o F w/ PMHx: Morbid Obesity, HTN, HLD, 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 She notes that he has stayed the same and not progressed nor improved. Work-up in the ED included T 97.9, heart rate 68, BP initially 206/87, respiratory rate 16, 9 7% on room air, CBC with WC 9.9, hemoglobin 12.7, platelet 293 without market shift, unremarkable coags, BMP with chloride 109, BUN/creatinine 18/1.08, glucose 133, CT of the brain with a focus of low-attenuation with the left occipital lobe concerning for subacute or chronic infarction although an underlying neoplastic process cannot entirely be excluded, EKG SR without acute evidence of ischemia. In the ED patient administered hydralazine 10 mg IV x1. Past Medical History Past Medical History (Chronic Problems): Chronic Problems (Last Reviewed 01/15/19 @ 10:07 by Madie Felton HOSPITALITY JOB TITLES, HOSPITALITY JOB TITLES-C) Chronic cough (Chronic) Morbid obesity (Chronic) Fibromyalgia (Chronic) IBS (irritable bowel syndrome) (Chronic) Lumbar spinal stenosis (Chronic) Depression (Chronic) Rheumatoid arthritis (Chronic) Insomnia (Chronic) Diabetes mellitus (Chronic) GERD (gastroesophageal reflux disease) (Chronic) Restless leg syndrome (Chronic) Obstructive sleep apnea (Chronic) Peripheral neuropathy (Chronic) Hypothyroidism (Chronic) Chronic low back pain (Chronic) Psoriatic arthritis (Chronic) Type 2 diabetes mellitus (Chronic) Hypertension (Chronic) Medical History: Medical History (Last Reviewed 01/15/19 @ 10:07 by Madie Felton HOSPITALITY JOB TITLES, HOSPITALITY JOB TITLES-C) Chronic cough (Chronic) R05 Morbid obesity (Chronic) E66.01 Fibromyalgia (Chronic) M79.7 IBS (irritable bowel syndrome) (Chronic) K58.9 Lumbar spinal stenosis (Chronic) M48.061 Depression (Chronic) F32.9 Rheumatoid arthritis (Chronic) M06.9 Insomnia (Chronic) G47.00 Diabetes mellitus (Chronic) E11.9 GERD (gastroesophageal reflux disease) (Chronic) K21.9 Restless leg syndrome (Chronic) G25.81 Obstructive sleep apnea (Chronic) G47.33 Peripheral neuropathy (Chronic) G62.9 Hypothyroidism (Chronic) E03.9 Chronic low back pain (Chronic) M54.5, G89.29 Psoriatic arthritis (Chronic) L40.50 Type 2 diabetes mellitus (Chronic) E11.9 Hypertension (Chronic) I10 Allergies No Known Allergies Allergy (Verified 03/11/20 17:17) Home Medications: Ambulatory Orders Medication Instructions Recorded Acetaminophen [Tylenol Extra 2 tab PO Q6H PRN PRN 03/11/20 Strength] Amoxicillin [Amoxil] 1 cap PO TID 03/11/20 Atenolol 50 mg PO DAILY 03/11/20 Clonazepam 0.5 mg PO QHS PRN 03/11/20 Gabapentin [Neurontin] 400 mg PO 5X/DAY 03/11/20 Hydrocodone/Acetaminophen [Bertha 1 ea PO Q6H PRN 03/11/20 5-325 Tablet] Ibuprofen/Acetaminophen [Advil 1 ea PO TID PRN PRN 03/11/20 Dual Action 250Mg-125Mg] Metformin HCl 500 mg PO DAILY 03/11/20 Surgical History: Surgical History (Last Reviewed 01/15/19 @ 10:07 by Madie Felton HOSPITALITY JOB TITLES, HOSPITALITY JOB TITLES-C) H/O lumbosacral spine surgery Z98.890 09/13/17 Surgical History: cholecystectomy, hysterectomy, total knee arthroplasty, - - Cholecystectomy, hysterectomy, bilateral total knee replacements, right shoulder replacement, spinal surgery with fusion. 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 Paternal History Items: Diabetes, Heart Disease Review of Systems Constitutional: Reports: Fatigue. Denies: Anorexia, Chills, Fever, Malaise, Weakness, Weight Change Eyes: Reports: Double vision HEENT: Denies: Head Aches, Sinus Congestion, Sinus Drainage Cardiovascular: Denies: Chest Pain, Palpitations Respiratory: Denies: Cough, Shortness of breath at rest, Sputum production Gastrointestinal: Denies: Abdominal Pain, Nausea, Vomiting Genitourinary: Denies: Dysuria Musculoskeletal: Reports: Joint Pain, Joint stiffness, Joint Tenderness Skin: Denies: Rash, Wounds Neurological: Denies: Focal weakness, Numbness, Tingling Psychiatric: Reports: Anxiety, Depression. Denies: Homicidal Ideations, Suicidal Ideations Hematologic/ Lymphatic: Denies: Easy Bruising, Easy Bleeding VTE Information - Inpt Only VTE Present on Admission: No VTE Mechan Device Prophylaxis: SCD's VTE Pharm Prophylaxis ordered?: Yes Patient Problems: Active and Suspected Problems (Last Reviewed 01/15/19 @ 10:07 by Madie Felton HOSPITALITY JOB TITLES, HOSPITALITY JOB TITLES-C) CVA (cerebral vascular accident) (Acute) Accelerated hypertension (Acute) Subjective: Patient seated upright in the ED bed, mildly fatigued otherwise no acute distress, ongoing constant right sided lateral field hemianopsia. Objective: Physical Examination: General: awake, alert, oriented x 3 and cooperative, seated upright in the ED bed in no apparent distress. Skin: normal color, turgor, no icterus, cyanosis. HEENT: AT/NC, EOMI, PERRLA, primarily right upper lateral quadrant deficit but also concurrent difficulties with the right lower quadrant concurrently consist ent with hemianopsia, MMM, no carotid bruits or JVD noted. Lungs: CTA bilaterally, moderate effort, mild decrease BL bases, no rales, ronchi or wheezing. Heart: Regular rate and rhythm; no gallop, rub audible. Abdomen: soft, morbidly obese, NTTP, ND, normal BS, no obvious HSM however habitus makes examination difficult. Extremities: no cyanosis or clubbing, mild bilateral ankle nonpitting edema. Neurological: patient awake, alert, oriented as noted; cognitive function intact; pupils equally reactive to light and accomodation; cranial nerves grossly normal with noted only deficit right sided lateral vision field hemianopsia, moving all 4 extremities, no focal deficits, strength preserved. Psychiatric: affect appears mildly fatigued otherwise normal, no acute evidence of depressive or anxiety feelings. - Physical Exam Vitals/I&O's: Vital Signs Temp Pulse Resp BP Pulse Ox 97.9 F 72 16 217/72 H 97 03/11/20 17:15 03/11/20 18:21 03/11/20 18:21 03/11/20 18:21 03/11/20 17:15 Oxygen Delivery Method Room Air Weight: 270 lb Body Mass Index (BMI) 54.5 Finger Stick Blood Glucose 164 Laboratory Results 03/11/20 18:00: WBC 9.9, RBC 4.83, Hgb 12.7, Hct 43.6, MCV 90.3, MCH 26.3 L, MCHC 29.1 L, RDW Std Deviation 50.4 H, RDW Coeff of Ayush 15.3 H, Plt Count 293, MPV 9.0, Immature Gran % (Auto) 0.500, Neut % (Auto) 74.9 H, Lymph % (Auto) 15.8 L, [place] % (Auto) 4.4, Eos % (Auto) 3.8, Baso % (Auto) 0.6, Absolute Neuts (auto) 7.4, Absolute Lymphs (auto) 1.57, Nucleated RBC % 0 03/11/20 18:00: PT 13.0, INR 1.0, APTT 26.1 03/11/20 18:00: Sodium 142, Potassium 4.2, Chloride 109 H, Carbon Dioxide 31.0, Anion Gap 2 L, BUN 18, Creatinine 1.08 H, Estim Creat Clear Calc 88.36, Est GFR (MDRD) Af Amer 64, Est GFR (MDRD) Non-Af 53 L, BUN/Creatinine Ratio 16.7, Glucose 133 H, Calcium 9.0 Assessment/Plan All Active Problems (Last Reviewed 01/15/19 @ 10:07 by Madie Felton HOSPITALITY JOB TITLES, HOSPITALITY JOB TITLES- C) CVA (cerebral vascular accident) (Acute) Accelerated hypertension (Acute) Asthma (Acute) The patient is a 74 y/o F w/ PMHx: Morbid Obesity, HTN, HLD, 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 1. Right eye hemianopsia, lateral quadrants concerning for acute stroke with left occipital lobe suspected subacute recent stroke: Will admit to PCU, will obtain MRI Brain, MRA Head and Neck, ECHO, PT/OT/Speech/Nutrition evaluation per protocol. Will allow permissive HTN with as needed agents and given significantly elevated blood pressures in the ED if necessary may consider transition to the ICU with Cardene drip if goals not able to be obtained, maintain on asa, add statin w/ AM FLP, fall precautions, magnesium, TSH, hemoglobin A1c, FLP requested. Once MRI imaging obtained would plan neurology consultation. 2. Accelerated hypertension: We will maintain permissive hypertension given acute presentation as noted but will have as needed agents and if necessary may consider transition to the ICU on a Cardene drip if difficulty controlling. 3. Recent dental infection: Patient notes she had recent dental abscess, will continue patient amoxicillin regimen. 4. Hyperlipidemia: Not on regimen, adding high-dose statin, FLP in AM. 5. 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 6. Anxiety and depression: Pending patient presentation will cautiously continue her home clonazepam regimen. May benefit from alternate agent especially in advanced age. 7. Rheumatoid arthritis/psoriatic arthritis: Per current list not on specific regimen, encourage continued outpatient rheumatology follow-up. 8. Morbid Obesity: Weight loss and lifestyle changes encouraged, nutrition consulted. 9. RLS: Patient on clonazepam low-dose nightly potential use for this, may consider Requip if needed. 10. Hypothyroidism: Noted in history, not on regimen, will obtain TSH and free T4. 11. BALJIT: We will continue BiPAP nightly. 12. DVT prophylaxis: SCDs, Lovenox. 13. CODE status: Patient JOSIE is her son Blue Frank and living will is cur rently in place. Discussed CODE status at length including difference between FULL code, DNR-CCA and DNR-CC status. Following discussions about the differences in these status, requested Full Code status. Advanced Care Planning Face to Face Time: 16 minutes. Inpatient E&M: 51775 Init Hosp L3 Procedures: 99738 Advncd Care Plan 30 Min
[2020-03-11] MEDS: hydrALAZINE 20 MG/ML Vial 10 MG IV (19:57)
--- NOTE | 2020-03-11 20:34 | ECHOCS_ITS ---
Reason For Study: Arrhythmia Procedure This was a 2D Doppler, Color Flow transthoracic echocardiogram. The study was technically difficult. Contrast injection was performed. Exam performed portable in patient room. Left Ventricle Normal LV size. Left ventricular systolic function is normal. The estimated ejection fraction is 65 %. Stage 1 diastolic dysfunction. No regional wall motion abnormalities noted. Right Ventricle Normal RV size. Normal systolic function. Atria Normal left atrium. Normal right atrium. Mitral Valve Normal mitral valve. Tricuspid Valve Normal tricuspid valve. Aortic Valve The aortic valve is not well visualized. Pulmonic Valve Normal pulmonic valve. Great Vessels Normal aortic root. The pulmonary artery is normal size. Normal inferior vena cava. Pericardium/Pleural No pericardial effusion. Medication Diluted definity 3ml given slow IV push to enhance endocardial definition. MMode/2D Measurements & Calculations LVIDd: 5.1 cm IVSd: 1.4 cm Ao root diam: 3.0 cm LVIDs: 3.1 cm LVPWd: 1.4 cm FS: 39.3 % LAV(MOD-bp): 57.5 ml LA A4 area: 18.3 cm2 LAV(MOD-bp) Indexed: 27.8 ml/m2 LAV(MOD-sp2): 58.1 ml LAV(MOD-sp4): 52.4 ml Time Measurements MV dec time: 0.26 sec Doppler Measurements & Calculations MV E max jeferson: 85.7 cm/sec Lat Peak E' Jeferson: 7.3 cm/sec Med Peak E' Jeferson: 8.1 cm/sec MV A max jeferson: 98.0 cm/sec E/E' lat: 11.8 E/E' med: 10.6 MV E/A: 0.88 MV V2 max: 125.2 cm/sec MV P1/2t max jeferson: 104.0 cm/sec Ao V2 max: 141.6 cm/sec MV max P.3 mmHg MV P1/2t: 62.6 msec Ao max P.0 mmHg MV V2 mean: 55.0 cm/sec MV dec slope: 486.5 cm/sec2 MV mean P.5 mmHg MV V2 VTI: 38.8 cm MVA(P1/2t): 3.5 cm2 LV V1 max: 105.3 cm/sec PA V2 max: 85.7 cm/sec LV V1 max P.4 mmHg Interpretation Summary Normal LV size. Left ventricular systolic function is normal. The estimated ejection fraction is 65 %. Stage 1 diastolic dysfunction. Contrast injection was performed. Ordering Physician: Siobhan Jennings Referring Physician: Fadumo Mandel M.D. Performed By: Tay Oviedo RCS
[2020-03-11] MEDS: AMOXICILLIN 500 MG CAPSULE PO (22:44)
[2020-03-11] MEDS: Gabapentin 400 MG Capsule PO (22:45)
[2020-03-11] MEDS: 0.9% Normal Saline 1,000 ML 100 ML IV (22:45)
[2020-03-11] MEDS: 0.9% Saline Lock 10 ML Syringe IV (22:45)
[2020-03-11] MEDS: Atorvastatin Calcium 80 MG Tablet PO (22:45)
[2020-03-11] MEDS: Acetaminophen 325 MG Tablet 650 MG PO (22:45)
[2020-03-11 22:46] LABS: Bedside Glucose 97 mg/dL (70-110)
[2020-03-12] VITALS (11 sets, daily range): BP systolic 172–205; BP diastolic 69–83; PULSE 58–93; RESP 16–20; TEMP 36.3–37; O2SAT 94–98; BMI 53.4
[2020-03-12] MEDS: clonazePAM 0.5 MG Tablet PO (00:03)
[2020-03-12] MEDS: oxyCODONE 5 MG Tablet PO (01:17)
[2020-03-12] MEDS: AMOXICILLIN 500 MG CAPSULE PO ×3 (05:11→21:20)
[2020-03-12] MEDS: Gabapentin 400 MG Capsule PO ×5 (05:11→21:20)
[2020-03-12] MEDS: Acetaminophen 325 MG Tablet 650 MG PO (05:11)
[2020-03-12 06:55] LABS: Bedside Glucose 86 mg/dL (70-110)
[2020-03-12 07:07] LABS: Absolute Lymphocyte Count 1.82 X10^3/uL (0.83-4.51); Absolute Neutrophil Count 6.1 X10^3/uL (2.0-7.7); Basophil# 0.05 X10^3/uL; Basophil% 0.6 % (0-1); Eosinophil# 0.37 X10^3/uL; Eosinophils% 4.1 % (0-5); Hematocrit 41.3 % (37-47); Hemoglobin 12.1 g/dL (12.0-15.0); Lymphocyte # 1.82 X10^3/ul (4.0); Lymphocyte % 20.4 % (19-41); Mean Corp Hgb Conc 29.3 g/dL (32-36); Mean Corpuscular Hgb 26.4 pg (27.0-32.0); Mean Platelet Vol. 9.4 fl (6.2-12.0); Monocyte# 0.57 X10^3/uL; Monocyte% 6.4 % (0-10); NRBC Flagged by Analyzer 0 % (0-5); Neutrophil # 6.09 X10^3/uL (2.7-7.7); Neutrophil % 68.2 % (47-70); Platelet Count 275 K/mm3 (150-450); RBC Distribution Width CV 15.3 % (11.6-14.6); RBC Distribution Width SD 50.7 fl (35.1-43.9); Red Blood Count 4.59 M/mm3 (4.2-5.4); White Blood Count 8.9 K/mm3 (4.4-11.0)
[2020-03-12 07:27] LABS: Hemoglobin A1c 5.9 % (3.8-5.6)
[2020-03-12 07:41] LABS: ALB/GLOB Ratio 0.7 RATIO (0.9-2.4); AST(SGOT) 13 U/L (15-37); Alanine Aminotransfer ALT/SGPT 17 U/L (13-56); Albumin, Serum 2.8 g/dL (3.2-5.0); Alkaline Phosphatase 87 U/L (45-117); Anion Gap 2 (5-15); BUN 11 mg/dL (7-18); BUN/Creat Ratio 15.7 RATIO (10-20); Calcium,Total 8.7 mg/dL (8.5-10.1); Chloride 108 mmol/L (98-107); Cholesterol 128 mg/dL (200); EST Glomerular Filtration Rate 87 mL/min (>60); Est Glom Filt Rate - Afr Amer 105 mL/min (>60); Estimated Creatinine Clearance 93.19 ml/min; Globulin 3.9 g/dL (2.2-4.2); Glucose 94 mg/dL (74-106); High Density Lipoprotein 47 mg/dL; Protein, Total 6.7 g/dL (6.4-8.2); Sodium Level 141 mmol/L (136-145); Thyroid Stim Hormone (TSH) 2.33 uIU/mL (0.358-3.74); Triglycerides 134 mg/dL; Very Low Density Lipoprotein 27 mg/dL (5-40)
[2020-03-12] MEDS: Enoxaparin 40 MG/0.4 ML Syringe SC (08:52)
[2020-03-12] MEDS: Aspirin 81 MG TAB.CHEW PO (08:52)
[2020-03-12] MEDS: 0.9% Normal Saline 1,000 ML 100 ML IV ×2 (08:53→21:24)
--- NOTE | 2020-03-12 09:00 | MRI_ITS ---
STUDY: MRA OF THE HEAD WITHOUT CONTRAST REASON FOR EXAM: Female, 74 years old. cva, rt eye double vision TECHNIQUE: 3-D [id number] (TOF) imaging was performed with MIPs. The study was performed unenhanced. COMPARISON: None. FINDINGS: Normal bilateral petrous carotid arteries. Normal right cavernous carotid artery with a normal supraclinoid bifurcation. Normal left cavernous carotid artery with a normal supraclinoid bifurcation. Normal right A1 segments of the anterior cerebral artery. Normal left A1 segments of the anterior cerebral artery. Normal intact anterior communicating artery (ACOM). Normal bilateral A2 segments of the anterior cerebral arteries. Normal right M1 and M2 segments of the middle cerebral arteries, with a normal M1 bifurcation. Normal left M1 and M2 segments of the middle cerebral arteries, with a normal M1 bifurcation. There is a persistent origin of the right posterior cerebral artery with absence of the P1 segment of the right posterior cerebral artery. There is a persistent origin of the left posterior cerebral artery with absence of the P1 segment of the left posterior cerebral artery. The origin of the left posterior cerebral artery demonstrates moderate focal narrowing. Normal left vertebral artery. The right vertebral artery is markedly diminutive in size and the distal most right vertebral artery not visualized. There is a diminutive basilar artery though it remains patent. The visualized bilateral superior cerebellar (SCA) arteries are normal. Normal right P2 and visualized P3 segments of the posterior cerebral artery. There is marked focal stenosis of the left P2 segment. There is no demonstrated aneurysm of the [place]. There is no major vessel occlusion or hemodynamically significant stenosis. There is no demonstrated abnormality of the visualized brain. MRI/MRA Head ONLY without Contrast IMPRESSION: 1. 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 The origin of the left posterior cerebral artery demonstrates moderate focal narrowing. There is marked focal stenosis of the left P2 segment. 2. The right vertebral artery is markedly diminutive in size and the distal most right vertebral artery is not visualized. 3. Diminutive basilar artery remains patent. Electronically Signed: Tico Howell, at 12:03 EST Tel , Service support ,
--- NOTE | 2020-03-12 09:00 | MRI_ITS ---
ACR Level 3 findings have been noted. An addendum which confirms receipt of the report will follow. STUDY: MRI BRAIN WITHOUT CONTRAST REASON FOR EXAM: Female, 74 years old. cva, double vision right eye TECHNIQUE: Standardized multiplanar fat and water weighted pulse sequences were obtained. COMPARISON: CT March 11, 2020 FINDINGS: There is mild cerebral atrophy with widening of the extra-axial spaces and ventricular dilatation. There are a limited number of small white matter hyperintensities, distributed throughout the deep white matter tracts of the cerebral hemispheres, consistent with mild chronic white matter ischemic changes. There is left occipital restricted diffusion and T2 signal hyperintensity with effacement of the sulci with recent, acute or subacute, infarct, series 4 images through . Normal T2* images of the brain without demonstrated susceptibility artifact. There is no demonstrated hemosiderin stain. Normal bilateral basal ganglia. Normal thalami. There is no extra-axial fluid accumulation. Normal flow voids within the major intracranial circulation suggesting patency by spin echo criteria. Normal sella turcica, pituitary gland, infundibular stalk, optic chiasm and hypothalamus. Normal tectal plate and pineal gland. Normal midbrain, last and medulla. Normal cerebellum. Normal basal cisterns. Normal bilateral temporal bones. Normal bilateral internal auditory canals. No demonstrated orbital abnormality, within the constraints of a routine brain study. Normal visualized paranasal sinuses. Normal calvarium and skull base. There is 1.3 cm mass of the left parotid gland, series 16 image 06/16. Normal visualized upper cervical spine. MRI/Brain without Contrast IMPRESSION: Left occipital infarct. No hemorrhage. Left parotid mass. Electronically Signed: Shivam Garcia MD at 11:55 EST , Service support ,
--- NOTE | 2020-03-12 09:00 | MRI_ITS ---
STUDY: MRA NECK WITHOUT CONTRAST REASON FOR EXAM: Female, 74 years old. cva, double vision rt eye TECHNIQUE: Source images were obtained, MIPs were performed. The study was performed unenhanced. COMPARISON: None. FINDINGS: RIGHT CAROTID ARTERIES: Normal right common carotid artery (CCA). Normal right internal carotid bulb. Normal origin of the right internal carotid (ICA) artery without a hemodynamically significant stenosis. Normal visualized cervical portion of the right internal carotid artery. High-grade stenosis at the origin of the right external carotid artery (ECA). LEFT CAROTID ARTERIES: Normal left common carotid artery (CCA). Normal left internal carotid bulb. Normal origin of the left internal carotid (ICA) artery without a hemodynamically significant stenosis. Normal visualized cervical portion of the left internal carotid artery. High-grade stenosis at the origin of the left external carotid artery (ECA). VERTEBRAL ARTERIES: Normal antegrade flow within the bilateral vertebral artery without a hemodynamically significant stenosis. The left is more dominant. MRI/MRA Neck without Contrast IMPRESSION: 1. Widely patent bilateral common carotid arteries, bilateral cervical internal carotid arteries and bilateral vertebral arteries. 2. High-grade stenosis at the origins of both external carotid arteries. Electronically Signed: Dewayne Meneses MD at 12:33 EST , Service support ,
[2020-03-12] MEDS: HYDROcodone Bitartrate/Apap 5/325 Tablet PO (09:02)
--- NOTE | 2020-03-12 10:46 | PN_ITS ---
Patient Problems: Active and Suspected Problems (Last Reviewed 01/15/19 @ 10:07 by Madie Felton ASSEMBLED WOOD PRODUCTS REPAIRER, ASSEMBLED WOOD PRODUCTS REPAIRER-C) CVA (cerebral vascular accident) (Acute) Accelerated hypertension (Acute) Reason for Visit: Follow-up for left occipital ischemic stroke Objective: Patient blood pressure is in permissive hypertension range 201/82, 172/79. monitor and storage bin tender shows sinus rhythm. She has 3-day history of diplopia and right lateral hemianopsia. No other symptoms of weakness, sensory deficit, ataxia or altered mental status. Physical exam General: Alert, Oriented x3, Cooperative HEENT: Atraumatic, PERRLA, EOMI, Normocephalic Oral: No Gingival or Mucosal Lesions/ Ulcerations Neck: Supple, No JVD, Negative Carotid Bruits Lungs: Air entry equal in bilateral lung bases. No crepitation/rhonchi Cardiovascular: Regular rate, Regular Rhythm, Normal S1, Normal S2, No murmurs Abdomen: Bowel Sounds Present, Soft, Non Tender, Non-Distended : No renal angle tenderness. No suprapubic tenderness. Extremities: No edema, Capillary Refill Less than 3 Seconds Skin: No rashes, No breakdown Musculoskeletal: No Tenderness to Palpation of Joints or Extremities Neurological: Right-sided hemianopsia. Patient has chronic left eye strabismus. Left optic nerve visual area deficit. NIHSS 1. Deep Tendon Reflexes 2+/4 and Symmetrical Psych/Mental Status: Normal Affect, Appropriate. Vitals/I&O's: Vital Signs Temp Pulse Resp BP Pulse Ox 97.3 F L 58 L 18 201/82 H 98 03/12/20 08:39 03/12/20 08:39 03/12/20 08:39 03/12/20 08:39 03/12/20 08:39 Oxygen Delivery Method Room Air Weight: 263 lb 10.766 oz Body Mass Index (BMI) 53.4 Finger Stick Blood Glucose 164 Intake and Output for Last 24 Hours 03/10/20 03/11/20 03/12/20 23:59 23:59 23:59 Intake Total 1470 / 1470 Balance 1470 / 1470 Laboratory Results 03/11/20 18:00: WBC 9.9, RBC 4.83, Hgb 12.7, Hct 43.6, MCV 90.3, MCH 26.3 L, MCHC 29.1 L, RDW Std Deviation 50.4 H, RDW Coeff of Ayush 15.3 H, Plt Count 293, MPV 9.0, Immature Gran % (Auto) 0.500, Neut % (Auto) 74.9 H, Lymph % (Auto) 15.8 L, Cabell % (Auto) 4.4, Eos % (Auto) 3.8, Baso % (Auto) 0.6, Absolute Neuts (auto) 7.4, Absolute Lymphs (auto) 1.57, Nucleated RBC % 0 03/11/20 18:00: PT 13.0, INR 1.0, APTT 26.1 03/11/20 18:00: Sodium 142, Potassium 4.2, Chloride 109 H, Carbon Dioxide 31.0, Anion Gap 2 L, BUN 18, Creatinine 1.08 H, Estim Creat Clear Calc 88.36, Est GFR (MDRD) Af Amer 64, Est GFR (MDRD) Non-Af 53 L, BUN/Creatinine Ratio 16.7, Glucose 133 H, Calcium 9.0 03/11/20 18:00: Magnesium 2.0 03/11/20 21:36: POC Glucose 97 03/12/20 06:35: WBC 8.9, RBC 4.59, Hgb 12.1, Hct 41.3, MCV 90.0, MCH 26.4 L, MCHC 29.3 L, RDW Std Deviation 50.7 H, RDW Coeff of Ayush 15.3 H, Plt Count 275, MPV 9.4, Immature Gran % (Auto) 0.300, Neut % (Auto) 68.2, Lymph % (Auto) 20.4, Cabell % (Auto) 6.4, Eos % (Auto) 4.1, Baso % (Auto) 0.6, Absolute Neuts (auto) 6.1, Absolute Lymphs (auto) 1.82, Nucleated RBC % 0 03/12/20 06:35: Sodium 141, Potassium 4.0, Chloride 108 H, Carbon Dioxide 31.0, Anion Gap 2 L, BUN 11, Creatinine 0.70, Estim Creat Clear Calc 93.19, Est GFR (MDRD) Af Amer 105, Est GFR (MDRD) Non-Af 87, BUN/Creatinine Ratio 15.7, Glucose 94, Calcium 8.7, Total Bilirubin 0.20, AST 13 L, ALT 17, Alkaline Phosphatase 87, Total Protein 6.7, Albumin 2.8 L, Globulin 3.9, Albumin/Globulin Ratio 0.7 L , Triglycerides 134, Cholesterol 128, LDL Cholesterol 54, VLDL Cholesterol 27, HDL Cholesterol 47, TSH 2.33, Free T4 1.10 03/12/20 06:35: Hemoglobin A1c 5.9 H 03/12/20 06:47: POC Glucose 86 Current Medications Acetaminophen (Acetaminophen 325 Mg Tablet) 650 mg PO Q6H PRN PRN PRN Reason: Pain Score 1-10/Temp > 100.7 F Last Admin: 03/12/20 05:11 Dose: 650 mg Documented by: Hydrocodone Bitart/Acetaminophen (Hydrocodone Bitartrate/Apap 5/325 Tablet) 1 tablet PO Q6H PRN PRN Reason: Pain 1-10 Last Admin: 03/12/20 09:02 Dose: 1 tablet Documented by: Al Hydroxide/Mg Hydroxide (Mag Hydrox/Al Hydrox/Simeth 30 Ml Udc) 30 ml PO Q6H PRN PRN PRN Reason: Gastric Burning Albuterol Sulfate (Albuterol 2.5 Mg/3 Ml Vial.Neb.) 2.5 mg INHALATION Q2H PRN PRN PRN Reason: Dyspnea, wheezing Amoxicillin (Amoxicillin 500 Mg Capsule) 500 mg PO TID [facility] Last Admin: 03/12/20 05:11 Dose: 500 mg Documented by: Aspirin (Aspirin 81 Mg Tab.Chew) 81 mg PO DAILY@0800 [facility] Last Admin: 03/12/20 08:52 Dose: 81 mg Documented by: Atorvastatin Calcium (Atorvastatin Calcium 80 Mg Tablet) 80 mg PO QHS [facility] Last Admin: 03/11/20 22:45 Dose: 80 mg Documented by: Clonazepam (Clonazepam 0.5 Mg Tablet) 0.5 mg PO QHS PRN PRN PRN Reason: RESTLESS LEG Last Admin: 03/12/20 00:03 Dose: 0.5 mg Documented by: Enoxaparin Sodium (Enoxaparin 40 Mg/0.4 Ml Syringe) 40 mg SC DAILY [facility] Last Admin: 03/12/20 08:52 Dose: 40 mg Documented by: Gabapentin (Gabapentin 400 Mg Capsule) 400 mg PO 5X/DAY [facility] Last Admin: 03/12/20 08:52 Dose: 400 mg Documented by: Guaifenesin (Guaifenesin 10 Ml Udc (200mg/10ml)) 20 ml PO Q4H PRN PRN PRN Reason: COUGH Hydralazine HCl (Hydralazine 20 Mg/Ml Vial) 5 mg IV Q30M PRN PRN Reason: to maintain BP goals Sodium Chloride () 1,000 mls @ 100 mls/hr IV .Q10H [facility] Last Admin: 03/12/20 08:53 Dose: 100 mls/hr Documented by: Insulin Human Lispro (Insulin Lispro 100 Unit/Ml Insuln.Pen) 0 unit SC [facility]; Protocol Last Admin: 03/12/20 06:53 Dose: Not Given Documented by: Labetalol HCl (Labetalol (Prefilled) 20 Mg/4 Ml) 10 - 20 mg IV Q10M PRN PRN PRN Reason: to Maintain BP Goals Magnesium Hydroxide (Magnesium Hydroxide 30 Ml Udc) 30 ml PO DAILY PRN PRN PRN Reason: Constipation Melatonin (Melatonin 3 Mg Tablet) 3 mg PO QHS PRN PRN PRN Reason: INSOMNIA Morphine Sulfate (Morphine 2 Mg/Ml Syringe) 2 mg IV Q3H PRN PRN PRN Reason: Pain Score 6-10 Nitroglycerin (Nitroglycerin (Inpatient Use) 0.4 Mg Tab.Subl) 0.4 mg SUBLINGUAL Q5M PRN PRN Reason: CARDIAC/CHEST PAIN Ondansetron HCl (Ondansetron 4 Mg/2 Ml Vial) 4 mg IV Q8H PRN PRN PRN Reason: NAUSEA/VOMITING Oxycodone HCl (Oxycodone 5 Mg Tablet) 5 mg PO Q4H PRN PRN PRN Reason: Pain Score 4-10 Last Admin: 03/12/20 01:17 Dose: 5 mg Documented by: Prochlorperazine Edisylate (Prochlorperazine 10 Mg/2 Ml Vial) 5 mg IV Q4H PRN PRN PRN Reason: Breakthrough Nausea/Vomiting Psyllium Hydrophilic Mucilloid (Psyllium 1 Packet) 1 packet PO DAILY PRN PRN PRN Reason: Constipation Senna/Docusate Sodium (Senna/Docusate Sodium 1 Tablet) 2 tablet PO BID PRN PRN PRN Reason: Constipation Sodium Chloride (0.9% Saline Lock 10 Ml Syringe) 10 - 40 ml IV UD PRN PRN Reason: SALINE FLUSH Last Admin: 03/11/20 22:45 Dose: 30 ml Documented by: Throat Lozenges (Benzocaine/Menthol 1 Lozenge) 1 lozenge MUCOUS MEM Q2H PRN PRN PRN Reason: SORE THROAT STROKE Vital Signs/Narrative: Vital Signs Temp Pulse Resp BP Pulse Ox 03/12/20 08:39 97.3 F L 58 L 18 201/82 H 98 03/12/20 07:57 63 Medical Necessity - Tobacco Use Smoking Status: Never smoker Assessment/Plan All Active Problems (Last Reviewed 01/15/19 @ 10:07 by Madie Felton ASSEMBLED WOOD PRODUCTS REPAIRER, ASSEMBLED WOOD PRODUCTS REPAIRER- C) CVA (cerebral vascular accident) (Acute) Accelerated hypertension (Acute) Asthma (Acute) This is a 74-year-old female with multiple comorbid including diabetes mellitus type 2, hypertension, dyslipidemia and morbid obesity admitted with right-sided visual deficit, hemianopia, diplopia for past 3 days and MRI finding consistent with left occipital lobe infarct. 1. Left occipital acute or subacute recent infarct: Patient is being admitted in PCU. BP and glucose control as per stroke guidelines. On permissive hypertensive range. Patient is on aspirin Plavix and high intensity statin. MRI brain shows left occipital infarct, acute or subacute. 2D echo normal left atrium, EF 65%. MRA brain reported bilateral origin of QUALITY CONTROL AUDITOR with absence of P1 segment. Origin of left QUALITY CONTROL AUDITOR shows moderate focal narrowing with marked focal stenosis of the left P2 segment. Right vertebral artery is markedly diminutive in size and distal right vertebral artery not visualized. Neck MRA shows high-grade stenosis at the origin of both external carotid arteries. Widely patent bilateral CCA, bilateral ICA and bilateral vertebral arteries Discussed with the tele-neurologist, Dr. Bernabe Dominique and advised 90 days of aspirin 325 mg daily and Plavix 75 mg and then continue aspirin 81 mg or Plavix 75 mg indefinitely. High intensity statin to continue. I discussed the diagnosis, management and prognosis of hemianopia with patient and his son on the phone. Follow-up with the neurologist recommended along with neuro- prism measurer. Fasting profile shows LDL 54, HDL 47, TG 128. 2. Accelerated hypertension: Pressure is in permissive hypertension range. monitor and storage bin tender shows normal sinus rhythm. On labetalol if blood pressure goes high beyond permissive hypertension range. 3. Recent dental infection: Patient notes she had recent dental abscess, continue patient amoxicillin regimen. 4. Hyperlipidemia: As mentioned above 5. 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 Avoid hypoglycemia or glucose more than 200. A1c 5.9. On Accu-Chek before meals and at bedtime cover regimen of sliding scale. On gabapentin. 6. Anxiety and depression: home clonazepam regimen. 7. Rheumatoid arthritis: outpatient rheumatology follow-up. 8. Morbid Obesity: Weight loss and lifestyle changes encouraged, nutrition consulted. 9. RLS: Patient on clonazepam low-dose nightly potential use for this, may consider Requip if needed. 10. Hypothyroidism ruled out: TSH and free T4 within normal limit. Patient not on Synthroid. 11. BALJIT: continue BiPAP nightly. 12. DVT prophylaxis: SCDs, Lovenox. Clinical Impression(s) from Imaging Studies Brain CT 03/11/20 17:56 IMPRESSION: Focus of low-attenuation within the left occipital lobe concerning for a subacute or chronic infarction although an underlying neoplastic process cannot be entirely excluded, consider MRI with contrast for further evaluation. Small vessel ischemia. Brain MRI 03/12/20 09:00 IMPRESSION: Left occipital infarct. No hemorrhage. Left parotid mass. Head MRA 03/12/20 09:00 IMPRESSION: 1. 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 The origin of the left posterior cerebral artery demonstrates moderate focal narrowing. There is marked focal stenosis of the left P2 segment. 2. The right vertebral artery is markedly diminutive in size and the distal most right vertebral artery is not visualized. 3. Diminutive basilar artery remains patent. Neck MRA 03/12/20 09:00 IMPRESSION: 1. Widely patent bilateral common carotid arteries, bilateral cervical internal carotid arteries and bilateral vertebral arteries. 2. High-grade stenosis at the origins of both external carotid arteries. E Inpatient E&M: 43797 Subs Hosp L2
[2020-03-12 11:36] LABS: Bedside Glucose 93 mg/dL (70-110)
--- NOTE | 2020-03-12 12:05 | TELEMED_ITS ---
[facility] Telemed has confirmed receipt of a request for visit. This document confirms receipt of the order initiating the consult. To find the results of the consultation, please view the patient's reports for the scanned Telemed Consult.
[2020-03-12] MEDS: Clopidogrel Bisulfate 75 MG Tablet PO (13:43)
[2020-03-12] MEDS: Aspirin 81 MG TAB.CHEW 162 MG PO (13:43)
--- NOTE | 2020-03-12 16:14 | CM.UR ---
KEREN SANDRA assessment: Face to Face with patient for initial transition planning/care coordination assessment. RN CM introduced self and role at [facility], pt voices understanding and consents to assessment at this time. Pt is sitting up in chair in no distress at this time. Pt is A/Ox4 at this time and answers all questions appropriately at this time. Care providers, pharmacy, and demographics verified at this time. Presentation: blurred vision Admitting dx: CVA PCP: Dr. Mandel Specialists: Dr. Conroy, Dr. Mckenna and a excellence coach that he can't remember. Preferred Pharmacy: [facility] Insurance: [employer] [facility] Prescription Benefit: Yes Living Will/HPOA: Yes, Blue Frank, Son LNOK: Son, Blue Frank Living Arrangements: Apartment 1 level. Ramp to get in. Lives by self. Step daughter has been helping with her showers for safety. Transportation: nieces or w/c van. She cannot climb up into vehicle such as a van/SUV. DME: Walker, canes, rollator, w/c grab bars, tub bench, bipap DME Co: [facility]: States she recently contacted [facility] for private duty RECEPTIONIST CLERK. States set up for 2 days per week RECEPTIONIST CLERK. Pt states no concerns with going home at time of discharge. CM to follow for any further discharge planning/needs. Advised pt to ask for CM if any further questions/concerns/needs arise, voices understanding. Pt Goal: Home Plan: Home Edith Escobedo RN, CCM.
[2020-03-12 16:51] LABS: Bedside Glucose 103 mg/dL (70-110)
[2020-03-12] MEDS: Atorvastatin Calcium 80 MG Tablet PO (21:20)
[2020-03-12 21:25] LABS: Bedside Glucose 123 mg/dL (70-110)
[2020-03-13] VITALS: BP 148/74; PULSE 67; RESP 16; TEMP 36.9; O2SAT 98
[2020-03-13 03:00] VITALS: PULSE 78
[2020-03-13 04:00] VITALS: BP 159/78; PULSE 72; RESP 18; TEMP 36.9; O2SAT 95
[2020-03-13] MEDS: AMOXICILLIN 500 MG CAPSULE PO (06:32)
[2020-03-13] MEDS: Gabapentin 400 MG Capsule PO ×2 (06:32→10:10)
[2020-03-13] MEDS: Acetaminophen 325 MG Tablet 650 MG PO (06:32)
[2020-03-13] MEDS: 0.9% Normal Saline 1,000 ML 100 ML IV (06:33)
[2020-03-13 06:40] LABS: Bedside Glucose 102 mg/dL (70-110)
[2020-03-13 07:00] VITALS: PULSE 89
[2020-03-13 07:44] VITALS: O2SAT 97
[2020-03-13] MEDS: Aspirin E.C. 325 MG Tablet PO (08:01)
--- NOTE | 2020-03-13 09:35 | DCINST_ITS ---
- Discharge Diagnoses Current Active Problems: Current Active and Chronic Problems (Last Reviewed 01/15/19 @ 10:07 by Madie Felton PRINT SHOP CHIEF CLERK, PRINT SHOP CHIEF CLERK-C) CVA (cerebral vascular accident) (Acute) Accelerated hypertension (Acute) Morbid obesity (Chronic) Fibromyalgia (Chronic) IBS (irritable bowel syndrome) (Chronic) Lumbar spinal stenosis (Chronic) Depression (Chronic) Rheumatoid arthritis (Chronic) Diabetes mellitus (Chronic) GERD (gastroesophageal reflux disease) (Chronic) Restless leg syndrome (Chronic) Obstructive sleep apnea (Chronic) Peripheral neuropathy (Chronic) Hypothyroidism (Chronic) Chronic low back pain (Chronic) Psoriatic arthritis (Chronic) Hypertension (Chronic) You will use the following diet at home:: Calorie/Carbohydrate Controlled (specify 1200, 1400, etc) - 1800 ADA diet, Cardiac Your food should be the consistency of: Regular Discharge Activity: May Not Drive Call your doctor if you observe: Fever of 101 or Higher, Coldness, Increased Pain, Numbness or Tingling, Change in Color, Inability to urinate, Inability to have a bowel movement, Using more than one pad per hour, Shortness of breath, Dizziness, Fainting spells, Swelling in the ankles, Chest pain, Prolonged hiccoughing, Increased palpitations (irregular heartbeat), Calf discomfort, Uncontrolled pain Additional Instructions: Follow-up neuro-video network engineer in tertiary care center as an outpatient in [facility]. Allergies/Adverse Reactions: Allergies No Known Allergies Allergy (Verified 03/11/20 17:17) Medications to take at Discharge Acetaminophen [Tylenol Extra Strength] 2 tab PO Q6H PRN PRN 03/11/20 Amoxicillin [Amoxil] 1 cap PO TID 03/11/20 Atenolol 50 mg PO DAILY 03/11/20 Clonazepam 0.5 mg PO QHS PRN 03/11/20 Gabapentin [Neurontin] 400 mg PO 5X/DAY 03/11/20 Hydrocodone/Acetaminophen [Milan 5-325 Tablet] 1 ea PO Q6H PRN 03/11/20 Ibuprofen/Acetaminophen [Advil Dual Action 250Mg-125Mg] 1 ea PO TID PRN PRN 03/11/20 Metformin HCl 500 mg PO DAILY 03/11/20 Aspirin E.C. [Ecotrin] 325 mg PO DAILY@0800 #30 tab 03/13/20 Atorvastatin Calcium [Lipitor] 80 mg PO QHS #90 tab 03/13/20 Clopidogrel Bisulfate [Plavix] 75 mg PO DAILY #30 tab 03/13/20 Lisinopril [Zestril] 10 mg PO DAILY #30 tab 03/13/20 The following prescriptions were given: Aspirin E.C. [Ecotrin] 325 mg PO DAILY@0800 #30 tab Transmission Status: Pending to [id number] Atorvastatin Calcium [Lipitor] 80 mg PO QHS #90 tab Clopidogrel Bisulfate [Plavix] 75 mg PO DAILY #30 tab Lisinopril [Zestril] 10 mg PO DAILY #30 tab Primary Care Physician: Fadumo Mandel DO [Primary Care Provider] - Please follow up with your Primary Care Physician in: in 2 weeks Test Results: Test results from this visit will be discussed in further detail at your follow- up appointment, if applicable. Please Follow Up With: Yoel Wood MD When: in 2-3 weeks for left occipital ischemic stroke Please Follow Up With: Rush Ware MD When: IN [facility] in 2 weeks
--- NOTE | 2020-03-13 09:39 | PCM.DC.SUM ---
Discharge Date and Diagnosis - Problem List Patient Problems: Active and Suspected Problems (Last Reviewed 01/15/19 @ 10:07 by Madie Felton SKILLED LABOR, SKILLED LABOR-C) CVA (cerebral vascular accident) (Acute) Accelerated hypertension (Acute) Date of Admission: 03/11/20 Date of Discharge: 03/13/20 - Primary Discharge Diagnosis Acute Problems: Active Problems (Last Reviewed 01/15/19 @ 10:07 by Madie Felton SKILLED LABOR, SKILLED LABOR-C) CVA (cerebral vascular accident) (Acute) Accelerated hypertension (Acute) Acute or subacute left occipital ischemic infarct - Secondary Discharge Diagnosis Chronic Problems: Chronic Problems (Last Reviewed 01/15/19 @ 10:07 by Madie Felton SKILLED LABOR, SKILLED LABOR-C) Chronic cough (Chronic) Morbid obesity (Chronic) Fibromyalgia (Chronic) IBS (irritable bowel syndrome) (Chronic) Lumbar spinal stenosis (Chronic) Depression (Chronic) Rheumatoid arthritis (Chronic) Insomnia (Chronic) Diabetes mellitus (Chronic) GERD (gastroesophageal reflux disease) (Chronic) Restless leg syndrome (Chronic) Obstructive sleep apnea (Chronic) Peripheral neuropathy (Chronic) Hypothyroidism (Chronic) Chronic low back pain (Chronic) Psoriatic arthritis (Chronic) Type 2 diabetes mellitus (Chronic) Hypertension (Chronic) Hospital Course and Treatment Operations: None Summary of Care Provided: [] This is a 74-year-old female with multiple comorbid including diabetes mellitus type 2, hypertension, dyslipidemia and morbid obesity admitted with right-sided visual deficit, hemianopia, diplopia for past 3 days and MRI finding consistent with left occipital lobe infarct. 1. Left occipital acute or subacute recent infarct: Patient is being admitted in PCU. BP and glucose control as per stroke guidelines. On permissive hypertensive range. Patient is on aspirin Plavix and high intensity statin. MRI brain shows left occipital infarct, acute or subacute. 2D echo normal left atrium, EF 65%. Normal sinus rhythm on manager cardiac cath MRA brain reported bilateral origin of SADDLE STITCHING MACHINE OPERATOR with absence of P1 segment. Origin of left SADDLE STITCHING MACHINE OPERATOR shows moderate focal narrowing with marked focal stenosis of the left P2 segment. Right vertebral artery is markedly diminutive in size and distal right vertebral artery not visualized. Neck MRA shows high-grade stenosis at the origin of both external carotid arteries. Widely patent bilateral CCA, bilateral ICA and bilateral vertebral arteries Discussed with the tele-neurologist, Dr. Bernabe Dominique and advised 90 days of aspirin 325 mg daily and Plavix 75 mg and then continue aspirin 325 mg or Plavix 75 mg indefinitely. High intensity statin, atorvastatin 80 mg daily to continue. I discussed the diagnosis, management and prognosis of hemianopia with patient and his son on the phone. Follow-up with the neurologist recommended along with neuro-semiconductor packages leak tester. Fasting profile shows LDL 54, HDL 47, TG 128. 2. Accelerated hypertension: Pressure is in permissive hypertension range. learning facilitator shows normal sinus rhythm with PVCs. On labetalol if blood pressure goes high beyond permissive hypertension range. Losartan 50 mg daily added and prescription prescription given. 3. Recent dental infection: Patient notes she had recent dental abscess, continue patient amoxicillin regimen. 4. Hyperlipidemia: As mentioned above 5. 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 Avoid hypoglycemia or glucose more than 200. A1c 5.9. Blood sugars are controlled. Accu-Cheks were done. On gabapentin. 6. Anxiety and depression: home clonazepam regimen. 7. Rheumatoid arthritis: outpatient rheumatology follow-up. 8. Morbid Obesity: Weight loss and lifestyle changes encouraged, nutrition consulted. 9. RLS: Patient on clonazepam low-dose nightly potential use for this, may consider Requip if needed. 10. Hypothyroidism ruled out: TSH and free T4 within normal limit. Patient not on Synthroid. 11. BALJIT: continue BiPAP nightly. 12. DVT prophylaxis: SCDs, Lovenox. Discharge medication reconciliation done. Discharge follow-up instructions completed. Discharge process discussed with the patient and all questions were answered to patient's satisfaction. Prescription for aspirin, atorvastatin, losartan and Plavix sent to the patient's pharmacy Total time spent, exact 35 minutes on discharge meds reconciliation, examination, coordination of care with nurses and ancillary staff, review of imaging and blood test and discussion with the patient on follow-up instructions Clinical Impression(s) from Imaging Studies Brain CT 03/11/20 17:56 IMPRESSION: Focus of low-attenuation within the left occipital lobe concerning for a subacute or chronic infarction although an underlying neoplastic process cannot be entirely excluded, consider MRI with contrast for further evaluation. Small vessel ischemia. Brain MRI 03/12/20 09:00 IMPRESSION: Left occipital infarct. No hemorrhage. Left parotid mass. Head MRA 03/12/20 09:00 IMPRESSION: 1. 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 The origin of the left posterior cerebral artery demonstrates moderate focal narrowing. There is marked focal stenosis of the left P2 segment. 2. The right vertebral artery is markedly diminutive in size and the distal most right vertebral artery is not visualized. 3. Diminutive basilar artery remains patent. Neck MRA 03/12/20 09:00 IMPRESSION: 1. Widely patent bilateral common carotid arteries, bilateral cervical internal carotid arteries and bilateral vertebral arteries. 2. High-grade stenosis at the origins of both external carotid arteries. Patient Problems: Active and Suspected Problems (Last Reviewed 01/15/19 @ 10:07 by Madie Felton SKILLED LABOR, SKILLED LABOR-C) CVA (cerebral vascular accident) (Acute) Accelerated hypertension (Acute) Objective: Seen and examined. No change in the vision. Has right hemianopsia. learning facilitator shows sinus rhythm with PVCs. Blood pressure elevated 159/78, 127/88 and losartan 50 mg daily started. Patient has elevated blood pressure for about more than 48 hours in permissive hypertensive range. Physical exam General: Alert, Oriented x3, Cooperative HEENT: Atraumatic, PERRLA, EOMI, Normocephalic Oral: No Gingival or Mucosal Lesions/ Ulcerations Neck: Supple, No JVD, Negative Carotid Bruits Lungs: Air entry equal in bilateral lung bases. No crepitation/rhonchi Cardiovascular: Regular rate, Regular Rhythm, Normal S1, Normal S2, No murmurs Abdomen: Bowel Sounds Present, Soft, Non Tender, Non-Distended : No renal angle tenderness. No suprapubic tenderness. Extremities: No edema, Capillary Refill Less than 3 Seconds Skin: No rashes, No breakdown Musculoskeletal: No Tenderness to Palpation of Joints or Extremities Neurological: Right-sided hemianopsia. Patient has chronic left eye strabismus. Left optic nerve visual area deficit. NIHSS 1. Deep Tendon Reflexes 2+/4 and Symmetrical Psych/Mental Status: Normal Affect, Appropriate. - Physical Exam Vitals/I&O's: Vital Signs Temp Pulse Resp BP Pulse Ox 98.4 F 89 18 159/78 H 97 03/13/20 04:00 03/13/20 07:00 03/13/20 04:00 03/13/20 04:00 03/13/20 07:44 Oxygen Delivery Method Room Air Weight: 264 lb 8.875 oz Body Mass Index (BMI) 53.4 Finger Stick Blood Glucose 164 Intake and Output for Last 24 Hours 03/11/20 03/12/20 03/13/20 23:59 23:59 23:59 Intake Total 2921.67 / 2921.67 761.67 / 761.67 Output Total 1100 / 1100 650 / 650 Balance 1821.67 / 1821.67 111.67 / 111.67 Laboratory Results 03/12/20 11:22: POC Glucose 93 03/12/20 16:22: POC Glucose 103 03/12/20 21:19: POC Glucose 123 H 03/13/20 06:28: POC Glucose 102 Current Medications Acetaminophen (Acetaminophen 325 Mg Tablet) 650 mg PO Q6H PRN PRN PRN Reason: Pain Score 1-10/Temp > 100.7 F Last Admin: 03/13/20 06:32 Dose: 650 mg Documented by: Hydrocodone Bitart/Acetaminophen (Hydrocodone Bitartrate/Apap 5/325 Tablet) 1 tablet PO Q6H PRN PRN Reason: Pain 1-10 Last Admin: 03/12/20 09:02 Dose: 1 tablet Documented by: Al Hydroxide/Mg Hydroxide (Mag Hydrox/Al Hydrox/Simeth 30 Ml Udc) 30 ml PO Q6H PRN PRN PRN Reason: Gastric Burning Albuterol Sulfate (Albuterol 2.5 Mg/3 Ml Vial.Neb.) 2.5 mg INHALATION Q2H PRN PRN PRN Reason: Dyspnea, wheezing Amoxicillin (Amoxicillin 500 Mg Capsule) 500 mg PO TID [facility] Last Admin: 03/13/20 06:32 Dose: 500 mg Documented by: Aspirin (Aspirin E.C. 325 Mg Tablet) 325 mg PO DAILY@0800 [facility] Last Admin: 03/13/20 08:01 Dose: 325 mg Documented by: Atorvastatin Calcium (Atorvastatin Calcium 80 Mg Tablet) 80 mg PO QHS [facility] Last Admin: 03/12/20 21:20 Dose: 80 mg Documented by: Clonazepam (Clonazepam 0.5 Mg Tablet) 0.5 mg PO QHS PRN PRN PRN Reason: RESTLESS LEG Last Admin: 03/12/20 00:03 Dose: 0.5 mg Documented by: Clopidogrel Bisulfate (Clopidogrel Bisulfate 75 Mg Tablet) 75 mg PO DAILY [facility] Last Admin: 03/12/20 13:43 Dose: 75 mg Documented by: Enoxaparin Sodium (Enoxaparin 40 Mg/0.4 Ml Syringe) 40 mg SC DAILY [facility] Last Admin: 03/12/20 08:52 Dose: 40 mg Documented by: Gabapentin (Gabapentin 400 Mg Capsule) 400 mg PO 5X/DAY [facility] Last Admin: 03/13/20 06:32 Dose: 400 mg Documented by: Guaifenesin (Guaifenesin 10 Ml Udc (200mg/10ml)) 20 ml PO Q4H PRN PRN PRN Reason: COUGH Hydralazine HCl (Hydralazine 20 Mg/Ml Vial) 5 mg IV Q30M PRN PRN Reason: to maintain BP goals Sodium Chloride () 1,000 mls @ 100 mls/hr IV .Q10H [facility] Last Admin: 03/13/20 06:33 Dose: 100 mls/hr Documented by: Insulin Human Lispro (Insulin Lispro 100 Unit/Ml Insuln.Pen) 0 unit SC ACHS [facility]; Protocol Last Admin: 03/13/20 06:34 Dose: Not Given Documented by: Labetalol HCl (Labetalol (Prefilled) 20 Mg/4 Ml) 10 - 20 mg IV Q10M PRN PRN PRN Reason: to Maintain BP Goals Melatonin (Melatonin 3 Mg Tablet) 3 mg PO QHS PRN PRN PRN Reason: INSOMNIA Morphine Sulfate (Morphine 2 Mg/Ml Syringe) 2 mg IV Q3H PRN PRN PRN Reason: Pain Score 6-10 Nitroglycerin (Nitroglycerin (Inpatient Use) 0.4 Mg Tab.Subl) 0.4 mg SUBLINGUAL Q5M PRN PRN Reason: CARDIAC/CHEST PAIN Ondansetron HCl (Ondansetron 4 Mg/2 Ml Vial) 4 mg IV Q8H PRN PRN PRN Reason: NAUSEA/VOMITING Oxycodone HCl (Oxycodone 5 Mg Tablet) 5 mg PO Q4H PRN PRN PRN Reason: Pain Score 4-10 Last Admin: 03/12/20 01:17 Dose: 5 mg Documented by: Prochlorperazine Edisylate (Prochlorperazine 10 Mg/2 Ml Vial) 5 mg IV Q4H PRN PRN PRN Reason: Breakthrough Nausea/Vomiting Psyllium Hydrophilic Mucilloid (Psyllium 1 Packet) 1 packet PO DAILY PRN PRN PRN Reason: Constipation Senna/Docusate Sodium (Senna/Docusate Sodium 1 Tablet) 2 tablet PO BID PRN PRN PRN Reason: Constipation Sodium Chloride (0.9% Saline Lock 10 Ml Syringe) 10 - 40 ml IV UD PRN PRN Reason: SALINE FLUSH Last Admin: 03/11/20 22:45 Dose: 30 ml Documented by: Throat Lozenges (Benzocaine/Menthol 1 Lozenge) 1 lozenge MUCOUS MEM Q2H PRN PRN PRN Reason: SORE THROAT Discharge Activity: May Not Drive Call your doctor if you observe: Fever of 101 or Higher, Coldness, Increased Pain, Numbness or Tingling, Change in Color, Inability to urinate, Inability to have a bowel movement, Using more than one pad per hour, Shortness of breath, Dizziness, Fainting spells, Swelling in the ankles, Chest pain, Prolonged hiccoughing, Increased palpitations (irregular heartbeat), Calf discomfort, Uncontrolled pain Home Medications: Medications to take at Discharge Acetaminophen [Tylenol] 2 tab PO Q6H PRN PRN 03/11/20 Amoxicillin [Amoxil] 1 cap PO TID 03/11/20 Atenolol 50 mg PO DAILY 03/11/20 Clonazepam 0.5 mg PO QHS PRN 03/11/20 Gabapentin [Neurontin] 400 mg PO 5X/DAY 03/11/20 Hydrocodone/Acetaminophen [[place] 5-325 Tablet] 1 ea PO Q6H PRN 03/11/20 Ibuprofen/Acetaminophen [Advil Dual Action 250Mg-125Mg] 1 ea PO TID PRN PRN 03/11/20 Metformin HCl 500 mg PO DAILY 03/11/20 Aspirin E.C. [Ecotrin] 325 mg PO DAILY@0800 #30 tab 03/13/20 Atorvastatin Calcium [Lipitor] 80 mg PO QHS #90 tab 03/13/20 Clopidogrel Bisulfate [Plavix] 75 mg PO DAILY #30 tab 03/13/20 Losartan Potassium 50 mg PO DAILY #30 tab 03/13/20 Following Prescriptions Were Given to Patient: Aspirin E.C. [Ecotrin] 325 mg PO DAILY@0800 #30 tab Transmission Status: Received by [id number] Atorvastatin Calcium [Lipitor] 80 mg PO QHS #90 tab Transmission Status: Received by [id number] Losartan Potassium 50 mg PO DAILY #30 tab Transmission Status: Received by [facility] Clopidogrel Bisulfate [Plavix] 75 mg PO DAILY #30 tab Transmission Status: Received by [id number] Primary Care Physician: Fadumo Mandel DO [Primary Care Provider] - Please follow up with your Primary Care Physician in: in 2 weeks Please Follow Up With: Yoel Wood MD When: in 2-3 weeks for left occipital ischemic stroke Please Follow Up With: Rush Ware MD When: IN [facility] in 2 weeks Medical Necessity - Tobacco Use Smoking Status: Never smoker Meaningful Use Info Meaningful Use Diagnoses (Choose all that apply): Ischemic CVA - CVA Therapy Assessed for PT,OT and/or ST?: Yes - Ischemic Stroke Antithrombotic order at d/c?: Yes Dx of Atrial fib/flutter?: No Anticoagulant at discharge?: Yes Statins at discharge?: Yes Primary Dx Acute Ischemic CVA?: Yes IV tPA ordered during stay?: No Reason IV t-PA not ordered: Treatment not Indicated - LKW more than 3 days Inpatient E&M: 80866 Disch Hosp
[2020-03-13 10:00] VITALS: BP 177/88; PULSE 101; RESP 18; TEMP 36.7; O2SAT 95
[2020-03-13] MEDS: Enoxaparin 40 MG/0.4 ML Syringe SC (10:10)
[2020-03-13] MEDS: Clopidogrel Bisulfate 75 MG Tablet PO (10:10)
[2020-03-13] MEDS: Losartan Potassium 50 MG Tablet PO (11:44)
[2020-03-13 12:35] LABS: Bedside Glucose 103 mg/dL (70-110)
--- NOTE | 2020-03-15 12:23 | CASEMGMT ---
KEREN SANDRA DC PHONE CALL DC DATE: 03/13/2020 DC DISPOSITION: Home DC DIAGNOSIS: CVA LACE/STRATA: 01/22 F/U APPTS MADE PRIOR TO DC: NO PRESCRIPTIONS ACQUIRED BY PT: yes Intro role of CM to patient via phone. The patient states she has made all of her follow up appointments. She spoke with her PCP today for f/u. The patient is doing well, but at times states she is emotional due to her hospitalization. She states she has a stepdaughter that lives in [place] if she needs assist and he son lives in [facility]. Discussed calling her PCP office and speaking to nurse if symptoms recur or she has questions re: her care. Pt stated her PCP wished for her to take her BP @ home. Pt called [employer] and they are delivering a BP monitor for her. Pt was not given instructions on how often to take her BP @ home. KEREN SANDRA recommended am and pm readings to be documented for physician. No care improvement suggestions were given. Chidi DE LA GARZA RN ACM
== END 2020-03-13 13:08 | disposition home or self-care (01) | DRG 65 ==
LOC: ED 19:43 → PCU 20:14
PROVIDERS: Admitting Provider Family Medicine; Emergency Provider Emergency Medicine; PCP Internal Medicine; Visit Provider Internal Medicine
DX: I63.9 Cerebral infarction, unspecified (principal); Z68.43 Body mass index [BMI] 50.0-59.9, adult; E66.01 Morbid (severe) obesity due to excess calories; M79.7 Fibromyalgia; F32.9 Major depressive disorder, single episode, unspecified; K04.7 Periapical abscess without sinus; E78.5 Hyperlipidemia, unspecified; K58.9 Irritable bowel syndrome, unspecified; M48.061 Spinal stenosis, lumbar region without neurogenic claudication; M06.9 Rheumatoid arthritis, unspecified; K21.9 Gastro-esophageal reflux disease without esophagitis; G25.81 Restless legs syndrome; G47.33 Obstructive sleep apnea (adult) (pediatric); E03.9 Hypothyroidism, unspecified; M54.5 Low back pain; G89.29 Other chronic pain; I10 Essential (primary) hypertension; L40.50 Arthropathic psoriasis, unspecified; G47.00 Insomnia, unspecified; E11.42 Type 2 diabetes mellitus with diabetic polyneuropathy; Z79.82 Long term (current) use of aspirin; Z79.899 Other long term (current) drug therapy; Z83.3 Family history of diabetes mellitus; Z90.710 Acquired absence of both cervix and uterus; Z96.611 Presence of right artificial shoulder joint; Z96.653 Presence of artificial knee joint, bilateral; Z66 Do not resuscitate; F41.9 Anxiety disorder, unspecified; H53.47 Heteronymous bilateral field defects
CPT/HCPCS: 36415; 70450; 70544; 70547; 70551; 80048; 80053; 80061; 82962; 83036; 83735; 84439; 84443; 85025; 85610; 85730; 92523; 93005; 93306; 94762; 97162; 97165; 97802; 99251; 99285; J7030; Q9957; A4216; C8929; G0463

== ENCOUNTER → 2020-05-24 12:47 | Outpatient (CLI) | payer MEDICARE, SELFPAY ==
[2020-03-12 20:01] VITALS: BMI 53.4
--- NOTE | 2020-05-24 12:54 | VDLE_ITS ---
Reason For Study: other specified PVD RIGHT LEFT CFV is compressible, spontaneous, phasic, CFV is compressible, spontaneous, phasic, competent and demonstrates normal competent, and demonstrates normal augmentation. augmentation. FV is compressible, spontaneous, phasic, FV is compressible, spontaneous, phasic, competent and demonstrates normal competent and demonstrates normal augmentation. augmentation. POP V is compressible, spontaneous, phasic, POP V is compressible, spontaneous, phasic, competent and demonstrates normal competent and demonstrates normal augmentation. augmentation. T/P Trunk is compressible. T/P Trunk is compressible. PTV is compressible. PTV is compressible. RT PerV is compressible. LT PerV is compressible. SFJ is competent and measures .76 cm. SFJ is competent and measures .63 cm. GSV proximal thigh measures .57 x .61 cm. GSV proximal thigh measures .54 x .55 cm. GSV at knee measures .46 x .49 cm. GSV at knee measures .36 x .36 cm. GSV is competent throughout. GSV is competent throughout. SSV proximal calf is competent and SSV proximal calf is competent and measures .12 x .16 cm. measures .21 x .2 cm. Procedure This is a venous duplex using B-mode, color flow and spectral Doppler. Exam performed in department. The exam was of fair technical quality due to pt body habitus. Interpretation Summary Deep veins of the lower extremities are bilaterally patent and compressible segmentally. There is no evidence of deep vein thrombosis on either side. Valvular competence appears intact within the proximal deep venous systems bilaterally. The great saphenous veins appear bilaterally patent and compressible segmentally. Sapheno-femoral junctions are bilaterally competent . Valvular competence appears to be intact segmentally within the great saphenous veins bilaterally. Small saphenous veins are patent and competent bilaterally. Ordering Physician: Kalpana Alonso Performed By: Serenity, Joseph, RVT
--- NOTE | 2020-05-24 12:54 | ART_ITS ---
Reason For Study: PVD Procedure A bilateral lower extremity continuous wave Doppler with analog waveform analysis,segmental pressures,and ankle brachial indexes without exercise. Left Segmental Pressures Left brachial= 147mmHg. Left posterior tibial artery = 167mmHg. Left dorsalis pedis artery = 157mmHg. Left digit = 110 mmHg. The left dorsalis pedis waveforms are triphasic. The left posterior tibial artery waveforms are triphasic. Right Segmental Pressures Right brachial= 155mmHg. Right posterior tibial artery = 152mmHg. Right dorsalis pedis artery = 160mmHg. Right digit = 95 mmHg. The right dorsalis pedis waveforms are triphasic. The right posterior tibial artery waveforms are triphasic. Indices The right ankle brachial index by the dorsalis pedis is 1.03. The right ankle brachial index by the posterior tibial artery is .98. The right digital-brachial index is .61. The left ankle brachial index by the dorsalis pedis is 1.01. The left ankle brachial index by the posterior tibial artery is 1.08. The left digital-brachial index is .71. Interpretation Summary Triphasic Doppler waveforms are noted at ankle level bilaterally. Pulse-volume recording waveform amplitudes are diminished at digital level bilaterally, but satisfactory at all other levels bilaterally. Resting ankle-brachial indices are normal bilaterally. The right digital-brachial index is mildly diminished. The left digital-brachial index is low-normal.. Arterial flow appears normal at ankle level bilaterally, and at digital level on the left. There is evidence of mild, distal, small-vessel arterial occlusive disease on the right. Ordering Physician: Kalpana Alonso Performed By: GODWIN GALE [place]
== END ==
PROVIDERS: PCP Internal Medicine; Referring Provider Podiatrist Foot & Ankle Surgery; Visit Provider Podiatrist Foot & Ankle Surgery
DX: I73.89 Other specified peripheral vascular diseases (principal); E11.42 Type 2 diabetes mellitus with diabetic polyneuropathy; B35.1 Tinea unguium; G60.8 Other hereditary and idiopathic neuropathies; R60.0 Localized edema
CPT/HCPCS: 93923; 93970

== ENCOUNTER → 2020-05-30 13:32 | Outpatient (CLI) | payer MEDICARE, SELFPAY ==
[2020-03-12 20:01] VITALS: BMI 53.4
--- NOTE | 2020-05-30 13:37 | RAD_ITS ---
STUDY: X-RAY CHEST REASON FOR EXAM: Female, 74 years old. INCREASED SOB TECHNIQUE: PA and lateral views of the chest. COMPARISON: 04/20/2018. FINDINGS: Decreased inspiratory effort with mild vascular crowding. Minimal left midlung atelectasis. Remainder of the lung bay are clear. There is no demonstrated pleural abnormality. There is borderline cardiomegaly. Normal mediastinum and graciela. Normal visualized pulmonary arteries. There is atherosclerotic calcification of the aortic arch with tortuosity. Postoperative changes along the thoracolumbar spine with posterior fusion. Advanced degenerative disease throughout the remainder of the visualized thoracic spine along with osteopenia. Postoperative changes of the proximal right shoulder with prosthesis in place. Advanced degenerative disease of the left shoulder. There is no demonstrated abnormality of the visualized soft tissue structures of the upper abdomen. RAD/Chest PA and Lateral IMPRESSION: Minimal left midlung atelectasis otherwise no acute cardiopulmonary process. Electronically Signed: Aline Jones MD at 0:29 EST , Service support ,
== END ==
PROVIDERS: PCP Internal Medicine; Referring Provider Internal Medicine; Visit Provider Internal Medicine
DX: R06.02 Shortness of breath (principal)
CPT/HCPCS: 71046

== ENCOUNTER 2020-06-28 10:57 | Outpatient (RCR) | payer MEDICARE, SELFPAY ==
[2020-03-12 20:01] VITALS: BMI 53.4
[2020-06-28] MEDS: COVID-19 VACC, MRNA(PFIZER)/PF 30 MCG/0.3 ML SYRINGE IM (16:16)
[2020-07-19] MEDS: COVID-19 VACC, MRNA(PFIZER)/PF 30 MCG/0.3 ML SYRINGE IM (15:49)
== END 2020-09-27 23:59 ==
LOC: IMMUN 10:57
PROVIDERS: PCP Internal Medicine; Referring Provider Family Medicine; Visit Provider Family Medicine
DX: Z23 Encounter for immunization (principal)
CPT/HCPCS: 0001A; 0002A; 91300

== ENCOUNTER → 2020-09-22 11:00 | Outpatient (CLI) | payer MEDICARE, SELFPAY ==
[2020-03-12 20:01] VITALS: BMI 53.4
== END ==
PROVIDERS: PCP Internal Medicine; Referring Provider Internal Medicine Critical Care Medicine; Visit Provider Internal Medicine Critical Care Medicine
DX: G47.33 Obstructive sleep apnea (adult) (pediatric) (principal)
CPT/HCPCS: 98960; G0463

== ENCOUNTER → 2021-01-17 13:59 | Outpatient (CLI) | payer MEDICARE, SELFPAY ==
[2021-01-17 16:00] LABS: Amphetamine Urine VISTA NEGATIVE (<1000 ng/mL); Barbiturate Urine VISTA NEGATIVE (< 200 ng/mL); Benzodiazepine Urine VISTA NEGATIVE (< 200 ng/mL); Cocaine Urine VISTA NEGATIVE (< 300 ng/mL); Ecstacy Urine VISTA NEGATIVE (< 500 ng/mL); Methadone Urine VISTA NEGATIVE (< 300 ng/mL); PCP Urine VISTA NEGATIVE (< 25 ng/mL); THC Urine VISTA NEGATIVE (< 50 ng/mL); Vista UDS pH Range 7
== END ==
PROVIDERS: PCP Internal Medicine; Referring Provider Anesthesiology Pain Medicine; Visit Provider Anesthesiology Pain Medicine
DX: F11.20 Opioid dependence, uncomplicated (principal)
CPT/HCPCS: 80307

== ENCOUNTER 2021-06-07 15:19 | Emergency (ER) | payer MEDICARE, SELFPAY ==
[2021-06-07 15:20] VITALS: BP 169/74; PULSE 67; RESP 18; TEMP 36.6; O2SAT 97; BMI 56.5
--- NOTE | 2021-06-07 15:58 | RAD_ITS ---
STUDY: X-RAY CHEST REASON FOR EXAM: Female, 75 years old. CHEST PAIN SOB TECHNIQUE: XR Chest 1 View COMPARISON: 2.8.21 FINDINGS: There is no demonstrated pleural abnormality. Total right shoulder arthroplasty. Spinal fixation hardware noted. There is borderline cardiomegaly. Normal mediastinum and graciela. Normal visualized pulmonary arteries. There is atherosclerotic calcification of the aortic arch with tortuosity. There are diffuse degenerative changes of the visualized thoracic spine. There is degenerative osteoarthritis of the bilateral shoulders. There is no demonstrated abnormality of the visualized soft tissue structures of the upper abdomen. RAD/Chest 1 View IMPRESSION: There has been no change in the appearance of the chest since the prior study. Electronically Signed: Donnie Paz MD at 16:36 EST ,
[2021-06-07 16:26] VITALS: BP 171/70; PULSE 70; RESP 23; O2SAT 97
[2021-06-07 16:57] VITALS: O2SAT 96
--- NOTE | 2021-06-07 16:57 | EKG12_ITS ---
Test Reason : SOB Blood Pressure : / mmHG Vent. Rate : 073 BPM Atrial Rate : 073 BPM P-R Int : 182 ms QRS Dur : 084 ms QT Int : 408 ms P-R-T Axes : 045 015 044 degrees QTc Int : 449 ms Normal sinus rhythm Normal ECG Confirmed by DEYVI CABALLERO, STEVEN ([id number]), medical editor BERTO FRENCH ([id number]) on 06/08/2021 10:24:00 A M Referred By: LUX/MELONIE Confirmed By:EDU CARNES MD
[2021-06-07 17:19] LABS: Bacteria 0 SEEN /hpf (None Seen); Mucous, Urine 0 SEEN /hpf (<or=2+); Red Blood Cells-Urine 0 SEEN /hpf (0-5); Squamous Epithelial Cells - UA 0 SEEN /hpf (5-10); White Blood Cells 0 SEEN /hpf (0-5)
[2021-06-07 17:30] LABS: Color, Urine Yellow (Yellow); Glucose, Dipstick Normal (Normal); Ketone-Dipstick Negative (Negative); Leukocyte Esterase-Dipstick Negative /ul (Negative); Nitrite-Dipstick Negative (Negative); Occult Blood-Urine 10 /ul (Negative); Protein-Dipstick Negative (Negative); Specific Gravity, Urine 1.015 (1.002-1.030); Urine Bilirubin Dipstick Negative (Negative); Urine Clarity Clear (Clear); Urine Urobilinogen Normal (Normal)
[2021-06-07 17:42] LABS: Absolute Lymphocyte Count 1.48 X10^3/uL (0.83-4.51); Absolute Neutrophil Count 10.2 X10^3/uL (2.0-7.7); Basophil% 0.8 % (0-1); Eosinophil# 0.35 X10^3/uL; Eosinophils% 2.7 % (0-5); Hematocrit 42.5 % (37-47); Hemoglobin 12.2 g/dL (12.0-15.0); Lymphocyte # 1.48 X10^3/ul (0.83-4.51); Lymphocyte % 11.4 % (19-41); Mean Corp Hgb Conc 28.7 g/dL (32-36); Mean Corpuscular Hgb 24.4 pg (27.0-32.0); Mean Corpuscular Volume 84.8 fL (81-99); Mean Platelet Vol. 9.4 fl (6.2-12.0); Monocyte% 6.2 % (0-10); NRBC Flagged by Analyzer 0 % (0-5); Neutrophil # 10.19 X10^3/uL (2.7-7.7); Neutrophil % 78.4 % (47-70); Platelet Count 353 K/mm3 (150-450); RBC Distribution Width CV 16.5 % (11.6-14.6); Red Blood Count 5.01 M/mm3 (4.2-5.4)
[2021-06-07 18:00] VITALS: BP 156/61; PULSE 67; RESP 20; O2SAT 96
[2021-06-07 18:02] LABS: Anion Gap 3 (5-15); BUN 17 mg/dL (7-18); BUN/Creat Ratio 15.7 RATIO (10-20); Calcium,Total 9.3 mg/dL (8.5-10.1); Chloride 103 mmol/L (98-107); Creatinine, Serum 1.08 mg/dL (0.55-1.02); EST Glomerular Filtration Rate 53 mL/min (>60); Est Glom Filt Rate - Afr Amer 64 mL/min (>60); Estimated Creatinine Clearance 90.24 ml/min; Glucose 131 mg/dL (74-106); Potassium 4.2 mmol/L (3.5-5.1); Sodium Level 137 mmol/L (136-145); Troponin-I HS 6 pg/mL (3.0-54.0)
[2021-06-07] MEDS: Gabapentin 400 MG Capsule PO (19:20)
[2021-06-07 19:50] LABS: Troponin-I HS 6 pg/mL (3.0-54.0)
[2021-06-07 20:12] VITALS: BP 154/69; PULSE 67; RESP 15; O2SAT 93
--- NOTE | 2021-06-07 20:13 | EDS_ITS ---
HPI History of Present Illness Chief Complaint: Shortness of Breath Narrative Narrative: 75-year-old female presenting with shortness of breath. She states her pulse ox was reading in the upper 80s today. She states this is a chronic issue. She does have some concern that her pulse oximeter is not reading correctly. She does have chronic dyspnea. She states that her pulse ox readings have been low chronically and intermittently into the 80s. She denies any chest pain. She denies any fever. She does admit to a cough but states it is chronic and unchanged. She states that she has a 6-minute walk scheduled with Dr. Mckenna next week to determine her need for oxygen. She says she has not yet needed any. [facility] Medical History (Updated 06/07/21 @ 16:25 by Rachel Vines) Asthma Chronic cough Chronic low back pain Depression Diabetes mellitus Fibromyalgia GERD (gastroesophageal reflux disease) Hypertension Hypothyroidism IBS (irritable bowel syndrome) Insomnia Lumbar spinal stenosis Morbid obesity Obstructive sleep apnea Peripheral neuropathy Psoriatic arthritis Psoriatic arthritis Restless leg syndrome Rheumatoid arthritis Type 2 diabetes mellitus Home Medications Atenolol 25 mg PO BREAKFAST 03/11/20 [History Last Taken Unknown] Clonazepam 0.5 mg PO QHS PRN 03/11/20 [History Last Taken Unknown] gabapentin 400 mg PO 5X/DAY 03/11/20 [History Last Taken Unknown] hydrocodone-acetaminophen 1 ea PO Q6H PRN 03/11/20 [History Last Taken Unknown] metformin 500 mg PO DAILY 03/11/20 [History Last Taken Unknown] aspirin 325 mg PO DAILY@0800 #30 tab 03/13/20 [Rx Last Taken Unknown] atorvastatin 80 mg PO QHS #90 tab 03/13/20 [Rx Last Taken Unknown] clopidogrel 75 mg PO DAILY #30 tab 03/13/20 [Rx Last Taken Unknown] losartan 50 mg PO DAILY #30 tab 03/13/20 [Rx Last Taken Unknown] albuterol sulfate 90 mcg/actuation aerosol inhaler 2 puff INHALATION Q6H PRN #8.5 g 12/08/20 [Rx Last Taken Unknown] amlodipine 5 mg tablet 5 mg PO DAILY 12/08/20 [History Last Taken Unknown] levothyroxine 50 mcg tablet 50 mcg PO DAILY 12/08/20 [History Last Taken Unknown] ondansetron 4 mg disintegrating tablet 4 mg PO Q6H tab 12/08/20 [History Last T aken Unknown] pantoprazole 40 mg tablet,delayed release 40 mg PO DAILY 12/08/20 [History Last Taken Unknown] pramipexole 0.125 mg tablet 0.125 - 0.375 mg PO QHS 12/08/20 [History Last Taken Unknown] atenolol 50 mg PO QHS 06/07/21 [History Last Taken Unknown] budesonide-formoterol [Symbicort] 1 puff INHALATION BID 06/07/21 [History Last Taken Unknown] hydrochlorothiazide 25 mg PO DAILY 06/07/21 [History Last Taken Unknown] Allergy/AdvReac Type Severity Reaction Status Date / Time No Known Allergies Allergy Verified 06/07/21 15:20 Surgical History (Updated 06/07/21 @ 16:25 by Rachel Vines) H/O lumbosacral spine surgery H/O total hysterectomy History of cholecystectomy History of right shoulder replacement Total knee replacement status Social History Smoking Status: Never smoker ROS ROS ED Constitutional Constitutional ED: Denies chills or fever(s) Eyes Eyes: Denies blurry vision or diplopia ENT ENT ED: Denies rhinorrhea or sore throat Cardiovascular Cardiovascular: Denies chest pain Respiratory/Chest Respiratory/Chest: Reports dyspnea and dyspnea on exertion Gastrointestinal Gastrointestinal: Denies abdominal pain or nausea Genitourinary Genitourinary ED: Denies dysuria or hematuria Musculoskeletal Musculoskeletal: Denies myalgias Integumentary Denies rash Neurologic Neurologic: Denies headache(s) or weakness EXAM Physical Exam Const Vital Signs: 06/07/21 15:20 06/07/21 16:26 06/07/21 16:57 Temperature 97.9 F Temperature Source Temporal Pulse Rate 67 70 Respiratory Rate 18 23 H Blood Pressure 169/74 H 171/70 H Blood Pressure Mean 105 103 Pulse Ox 97 97 96 Oxygen Delivery Method Room Air Room Air Room Air 06/07/21 18:00 06/07/21 20:12 Temperature Temperature Source Pulse Rate 67 67 Respiratory Rate 20 H 15 Blood Pressure 156/61 H 154/69 H Blood Pressure Mean 92 Pulse Ox 96 93 Oxygen Delivery Method Room Air Positive well nourished General Appearance ED: NAD; Negative for pallor HEENT Reports moist mucous membranes Eyes PERRL and EOMs intact bilaterally Neck no lymphadenopathy and supple Resp normal respiratory effort and clear to auscultation bilaterally Cardio regular rate and regular rhythm GI non-tender and non-distended Palpation: soft Neuro oriented x3 and CN's II-XII intact bilaterally Sensorium / Orientation: alert Psych mental status grossly normal Thought Process: normal thought process Skin General Skin Exam: Negative for jaundice or pallor MDM MDM MDM Narrative Medical decision making narrative: Patient presenting with dyspnea which is chronic. She also has a cough which has not changed. She is not had a fever or chills. She denies having chest pain. Patient's pulse ox is normal sitting in bed. It is noted that she does drop to the upper 80s when she ambulates but she said this is been going on for very long time. Her CBC shows a slight leukocytosis at 13. Hemoglobin hematocrit are stable. Platelets are normal. Creatinine 1.08. Electrolytes are normal. Urinalysis negative for infection. High-sensitivity troponin is 6 at 0 hours and 2 hours. Chest x-ray on my interpretation shows no acute cardiopulmonary process and the radiologist does agree. P since most of the patient's symptoms are chronic and unchanged and she has normal vital signs I believe she is safe for discharge home. I recommended that she did follow-up with Dr. Mckenna for the 6-minute walk. She is amenable to this. I did offer to admit her to determine her oxygen needs and she feels safe being discharged home to follow-up because she has had this chronically. Impression: 1. Dyspnea Lab Data Labs: Laboratory Results - last 24 hr 06/07/21 06/07/21 06/07/21 17:15 17:26 17:26 WBC 13.0 H RBC 5.01 Hgb 12.2 Hct 42.5 MCV 84.8 MCH 24.4 L MCHC 28.7 L RDW Std Deviation 51.0 H RDW Coeff of Ayush 16.5 H Plt Count 353 MPV 9.4 Immature Gran % (Auto) 0.500 Neut % (Auto) 78.4 H Lymph % (Auto) 11.4 L Greene % (Auto) 6.2 Eos % (Auto) 2.7 Baso % (Auto) 0.8 Absolute Neuts (auto) 10.2 H Absolute Lymphs (auto) 1.48 Nucleated RBC % 0 Sodium 137 Potassium 4.2 Chloride 103 Carbon Dioxide 31.0 Anion Gap 3 L BUN 17 Creatinine 1.08 H Estim Creat Clear Calc 90.24 Est GFR (MDRD) Af Amer 64 Est GFR (MDRD) Non-Af 53 L BUN/Creatinine Ratio 15.7 Glucose 131 H Calcium 9.3 Troponin I High Sens 6 Urine Color Yellow Urine Clarity Clear Urine pH 8.0 Ur Specific [place] 1.015 Urine Protein Negative Urine Glucose (UA) Normal Urine Ketones Negative Urine Occult Blood 10 H Urine Nitrite Negative Urine Bilirubin Negative Urine Urobilinogen Normal Ur Leukocyte Esterase Negative Urine RBC 0 SEEN Urine WBC 0 SEEN Ur Squamous Epith Cells 0 SEEN Urine Bacteria 0 SEEN Urine Mucus 0 SEEN 06/07/21 19:27 WBC RBC Hgb Hct MCV MCH MCHC RDW Std Deviation RDW Coeff of Ayush Plt Count MPV Immature Gran % (Auto) Neut % (Auto) Lymph % (Auto) Greene % (Auto) Eos % (Auto) Baso % (Auto) Absolute Neuts (auto) Absolute Lymphs (auto) Nucleated RBC % Sodium Potassium Chloride Carbon Dioxide Anion Gap BUN Creatinine Estim Creat Clear Calc Est GFR (MDRD) Af Amer Est GFR (MDRD) Non-Af BUN/Creatinine Ratio Glucose Calcium Troponin I High Sens 6 Urine Color Urine Clarity Urine pH Ur Specific [place] Urine Protein Urine Glucose (UA) Urine Ketones Urine Occult Blood Urine Nitrite Urine Bilirubin Urine Urobilinogen Ur Leukocyte Esterase Urine RBC Urine WBC Ur Squamous Epith Cells Urine Bacteria Urine Mucus Radiography Diagnostic Testing: Clinical Impression(s) from Imaging Studies Chest X-Ray 06/07/21 15:58 IMPRESSION: There has been no change in the appearance of the chest since the prior study. Electronically Signed: Donnie Paz MD at 16:36 EST Reading Location ID and State: [facility] / [place] , Service support , Discharge Plan Triage Chief Complaint: Shortness of Breath ED Provider: Homar Garland Dx/Rx/DC Orders Instructions: ED Dyspnea Prescriptions: No Action levothyroxine [Synthroid] 50 mcg tablet 50 mcg PO DAILY RF: 0 amlodipine [Norvasc] 5 mg tablet 5 mg PO DAILY RF: 0 pantoprazole 40 mg tablet,delayed release (DR/EC) 40 mg PO DAILY RF: 0 pramipexole [Mirapex] 0.125 mg tablet 0.125 - 0.375 mg PO QHS RF: 0 ondansetron 4 mg tablet,disintegrating 4 mg PO Q6H RF: 0 albuterol sulfate 90 mcg/actuation HFA aerosol inhaler 2 puff inhalation Q6H PRN (Reason: shortness of breath or wheezing) Qty: 8.5 RF: 6 metformin 500 MG tablet 500 mg PO DAILY RF: 0 hydrocodone-acetaminophen 1 EACH tablet 1 ea PO Q6H PRN (Reason: Pain 1-10 Or Fever) RF: 0 gabapentin 400 MG capsule 400 mg PO 5X/DAY RF: 0 Clonazepam 0.5 MG tablet 0.5 mg PO QHS PRN (Reason: RESTLESS LEG) RF: 0 Atenolol 25 mg PO BREAKFAST RF: 0 atorvastatin 80 MG tablet 80 mg PO QHS Qty: 90 RF: 0 clopidogrel 75 MG tablet 75 mg PO DAILY Qty: 30 RF: 1 aspirin 325 MG tablet 325 mg PO DAILY@0800 Qty: 30 RF: 1 losartan 50 MG tablet 50 mg PO DAILY Qty: 30 RF: 1 hydrochlorothiazide 25 mg Tablet 25 mg PO DAILY RF: 0 atenolol 50 mg Tablet 50 mg PO QHS RF: 0 budesonide-formoterol [Symbicort] 160-4.5 mcg/actuation Hfa Aerosol Inhaler 1 puff INHALATION BID RF: 0 Primary Care Provider: Fadumo Mandel Referrals: Doroteo Mckenna DO [STAFF PHYSICIAN] - As soon as possible Fadumo Mandel DO [Primary Care Provider] - Disposition Disposition: Home, Self Care Discharge Date/Time: 06/07/21 20:23
--- NOTE | 2021-06-08 13:00 | CASEMGMT ---
KEREN SANDRA ED follow-up: Date of ER visit: 06/07/2021 Presenting ER complaint: shortness of breath RN JOCY placed call to patient's telephone number listed on demographics, patient answered. KEREN SANDRA introduced self and role at [facility] and informed patient of reason for call. Patient states feeling the same today. Reports episode of shortness of breath while making lunch today and noted SpO2 to be 79% and then 84% during that time. States was able to sit down and take deep breaths and SpO2 recovered to low 90's%. Denies having any chest pain. Patient reports these episodes have been ongoing x a couple weeks and has a 6 minute walk test scheduled next SaturdayJune 13 to evaluate if she qualifies for supplemental home oxygen. Patient instructed that SpO2 in the 70's and 80's is too low and worrisome. Patient strongly encouraged to return to ED for these type of readings and feelings of shortness of breath. KEREN SANDRA stressed concern regarding reported numbers but patient reports she does not feel short of breath at this time but will keep that in mind. Patient is alert and oriented, able to speak in complete sentences during long telephone conversation without apparent shortness of breath at this time (takes no breaks to catch breath during 15+ minute phone conversation). Patient reports she lives alone but has an aide that visits 3 times a week to assist with personal care/ADLs and light housekeeping. Patient uses a walker for mobility and reports she is compliant with use, always keeping it within reach. Patient also has a medical alert that she keeps on her person at all times. Patient reports she is eating and drinking well. KEREN SANDRA again discussed reasons to return to emergency department. Patient encouraged to schedule PCP follow-up and to keep schedule appointment for 6 minute walk test. Patient voiced understanding. Patient denies questions or concerns and expressed appreciation for follow-up call. KEREN Brito CM
== END 2021-06-07 20:23 | disposition home or self-care (01) ==
PROVIDERS: Emergency Provider Student in an Organized Health Care Education/Training Program; PCP Internal Medicine; Visit Provider Student in an Organized Health Care Education/Training Program
DX: R06.00 Dyspnea, unspecified (principal); M06.9 Rheumatoid arthritis, unspecified; E11.42 Type 2 diabetes mellitus with diabetic polyneuropathy; I10 Essential (primary) hypertension; K21.9 Gastro-esophageal reflux disease without esophagitis; E03.9 Hypothyroidism, unspecified; G47.33 Obstructive sleep apnea (adult) (pediatric); R05.3 Chronic cough
CPT/HCPCS: 71045; 80048; 81001; 84484; 85025; 87426; 93005; 99284; A4216

== ENCOUNTER 2021-06-13 12:47 | Outpatient (CLI) | payer MEDICARE, SELFPAY ==
[2021-06-13 13:15] VITALS: PULSE 58; PULSE 65; PULSE 78; PULSE 80; PULSE 96; O2SAT 4; O2SAT 87; O2SAT 93; O2SAT 96; O2SAT 98
--- NOTE | 2021-06-13 13:42 | CPS ---
Patient came in on RA, patient stated that frequently her SpO2 drops to the low 80's and high 70's. Patient started 6 min walk on RA. At the 1 min jenifer patient's SpO2 dropped to 87%. 2L was applied and remained on for the rest of the test. Patient was only able to walk 3 min total, but that is more than she ever walks. Adan BROADCAST MAINTENANCE TECHNICIAN
--- NOTE | 2021-06-14 10:37 | WT_ITS ---
PSN 6 Minute Walk Test 6 Minute Walk Test 6 Minute Walk Test: 6 Minute Walk Test PSN:6-Minute Walk Test Start: 06/13/21 13:40 Freq: Status: Active Protocol: [id number] Document 06/13/21 13:15 JANELLE (Rec: 06/13/21 13:49 JANELLE [id number]) 6 Minute Walk Test Date Performed 06/13/21 Time Performed 13:15 Height 4 ft 11 in Weight: 127.006 kg Weight in Pounds 280.[address]: Madie Felton HR GENERALIST Assistive device used: Walker Pre-test Oxygen Delivery Method Room Air Pulse Ox (%) 4 Pulse Rate (60-100 beats/min) 58 L Dyspnea Zac Scale (0-10) 0 Exertion Zac Scale (6-20) 6 1st minute Oxygen Delivery Method Room Air Pulse Ox (%) 87 Pulse Rate (60-100 beats/min) 96 2nd minute Oxygen Flow Rate (L/min) (L/min) 2 Oxygen Delivery Method Nasal Cannula Pulse Ox (%) 96 Pulse Rate (60-100 beats/min) 78 3rd minute Oxygen Flow Rate (L/min) (L/min) 2 Oxygen Delivery Method Room Air Pulse Ox (%) 93 Pulse Rate (60-100 beats/min) 80 Dyspnea Zac Scale (0-10) 3 Exertion Zac Scale (6-20) 13 Post-test Oxygen Flow Rate (L/min) (L/min) 2 Oxygen Delivery Method Nasal Cannula Pulse Ox (%) 98 Pulse Rate (60-100 beats/min) 65 Full Laps Walked 6 Partial Lap, Number of Tiles Walked 0 Total Distance Walked (ft) 354 06/13/21 13:42 Cardiopulmonary Services by Joanna Koroma Patient came in on RA, patient stated that frequently her SpO2 drops to the low 80's and high 70's. Patient started 6 min walk on RA. At the 1 min jenifer patient's SpO2 dropped to 87%. 2L was applied and remained on for the rest of the test. Patient was only able to walk 3 min total, but that is more than she ever walks. Adan ORGANIZATIONAL DEVELOPMENT DIRECTOR Initialized on 06/13/21 13:42 - END OF NOTE Interpretation Interpretation: The patient ambulated 354 feet over the course of 3 minutes beginning on room air without assistive devices. The patient was only able to ambulate 3 minutes. Pretesting oxygen saturation was noted to be 94% on room air. With ambulation, the eliana oxygen saturation was 87% at minute 1 of testing. 2 L/min of oxygen was applied and the patient was able to complete the remainder of the test while maintaining appropriate oxygen saturations. Recommendations Recommendations: 2 L/min of supplemental oxygen should be utilized with exertion.
== END 2021-06-13 23:59 | disposition home or self-care (01) ==
LOC: PSN 12:50
PROVIDERS: PCP Internal Medicine; Referring Provider Nurse Practitioner Acute Care; Visit Provider Nurse Practitioner Acute Care
DX: R06.02 Shortness of breath (principal)
CPT/HCPCS: 94618

== ENCOUNTER 2021-07-25 11:55 | Outpatient (CLI) | payer MEDICARE, SELFPAY | END 2021-07-25 23:59 | disposition home or self-care (01) | LOC: PSN 11:56 | PROVIDERS: PCP Internal Medicine; Referring Provider Internal Medicine; Visit Provider Internal Medicine | DX: Z51.81 Encounter for therapeutic drug level monitoring (principal) | CPT/HCPCS: 93225; 93226 ==

== ENCOUNTER 2021-08-25 13:11 | Emergency (ER) | payer MEDICARE, SELFPAY ==
[2021-08-25 13:12] VITALS: BP 119/64; PULSE 79; RESP 13; TEMP 37.3; O2SAT 94; BMI 58.0
--- NOTE | 2021-08-25 13:54 | EKG12_ITS ---
Test Reason : CHEST PAIN Blood Pressure : / mmHG Vent. Rate : 071 BPM Atrial Rate : 071 BPM P-R Int : 174 ms QRS Dur : 088 ms QT Int : 400 ms P-R-T Axes : 050 005 037 degrees QTc Int : 434 ms Normal sinus rhythm Normal ECG Confirmed by MELIZA MALCOLM MD ([id number]), editor continuity and script BERTO FRENCH ([id number]) on 08/28/2021 1:19:23 PM Referred By: [email or web address] Confirmed By:MELIZA MALCOLM MD
--- NOTE | 2021-08-25 14:02 | EDS_ITS ---
HPI History of Present Illness Chief Complaint: Chest Pain Narrative Narrative: Patient presenting with chest pain. She describes it as a linear pattern from left to right across her chest. She states it feels a little bit heavy. She specifically notes its not sharp. She has chronic dyspnea which is unchanged. She wears 2 L of oxygen with ambulation and is not currently on any O2 and denies shortness of breath. No fever, cough. No nausea or vomiting. She states she has no cardiac history. She states took a Windsor prior to arrival which she takes for neuropathy and this did not help her chest pain. Currently states he is being treated for cellulitis on her lower extremities and states her lower extremities are much improved. She is also increased her Lasix to take down the edema. She states the antibiotic starts with an N. [facility] Medical History Asthma Chronic cough Chronic low back pain Depression Diabetes mellitus Fibromyalgia GERD (gastroesophageal reflux disease) Hypertension Hypothyroidism IBS (irritable bowel syndrome) Insomnia Lumbar spinal stenosis Morbid obesity Obstructive sleep apnea Peripheral neuropathy Psoriatic arthritis Psoriatic arthritis Restless leg syndrome Rheumatoid arthritis Type 2 diabetes mellitus Home Medications Clonazepam 0.5 mg PO QHS PRN 03/11/20 [History Last Taken Unknown] gabapentin 400 mg PO BREAKFAST 03/11/20 [History Last Taken Unknown] hydrocodone-acetaminophen 1 ea PO Q6H PRN 03/11/20 [History Last Taken Unknown] metformin 500 mg PO DAILY 03/11/20 [History Last Taken Unknown] aspirin 325 mg PO DAILY@0800 #30 tab 03/13/20 [Rx Last Taken Unknown] atorvastatin 80 mg PO QHS #90 tab 03/13/20 [Rx Last Taken Unknown] albuterol sulfate 90 mcg/actuation aerosol inhaler 2 puff INHALATION Q6H PRN #8.5 g 12/08/20 [Rx Last Taken Unknown] amlodipine 5 mg tablet 5 mg PO DAILY 12/08/20 [History Last Taken Unknown] levothyroxine 50 mcg tablet 50 mcg PO DAILY 12/08/20 [History Last Taken Unknown] ondansetron 4 mg disintegrating tablet 4 mg PO Q6H tab 12/08/20 [History Last Taken Unknown] pantoprazole 40 mg tablet,delayed release 40 mg PO DAILY 12/08/20 [History Last Taken Unknown] atenolol 50 mg PO QHS 06/07/21 [History Last Taken Unknown] budesonide-formoterol [Symbicort] 1 puff INHALATION BID 06/07/21 [History Last Taken Unknown] hydrochlorothiazide 25 mg PO DAILY 06/07/21 [History Last Taken Unknown] cefdinir 300 mg PO BID 08/25/21 [History Last Taken Unknown] gabapentin 800 mg PO QHS 08/25/21 [History Last Taken Unknown] losartan 100 mg PO DAILY 08/25/21 [History Last Taken Unknown] Allergy/AdvReac Type Severity Reaction Status Date / Time No Known Allergies Allergy Verified 08/25/21 13:16 Surgical History H/O lumbosacral spine surgery H/O total hysterectomy History of cholecystectomy History of right shoulder replacement Total knee replacement status Social History Smoking Status: Never smoker ROS ROS ED Constitutional Constitutional ED: Denies chills or fever(s) Eyes Eyes: Denies blurry vision or change in vision ENT ENT ED: Denies rhinorrhea or sore throat Cardiovascular Cardiovascular: Reports as per HPI Respiratory/Chest Respiratory/Chest: Denies cough, dyspnea or dyspnea on exertion Gastrointestinal Gastrointestinal: Denies abdominal pain, nausea or vomiting Genitourinary Genitourinary ED: Denies dysuria or hematuria Musculoskeletal Musculoskeletal: Denies back pain, myalgias or neck pain Integumentary Reports other Details: Improving bilateral lower extremity cellulitis Neurologic Neurologic: Denies headache(s) Psychiatric Psychiatric: Denies anxiety or depression EXAM Physical Exam Const Vital Signs: 08/25/21 13:12 08/25/21 14:18 08/25/21 14:19 Temperature 99.1 F Temperature Source Oral Pulse Rate 79 78 Respiratory Rate 13 14 Blood Pressure 119/64 127/87 H Blood Pressure Mean 82 100 Pulse Ox 94 84 Oxygen Delivery Method Room Air Room Air Room Air Oxygen Flow Rate (L/min) 08/25/21 14:24 08/25/21 15:00 08/25/21 16:00 Temperature Temperature Source Pulse Rate 62 88 Respiratory Rate 16 24 H Blood Pressure 154/76 H Blood Pressure Mean 102 Pulse Ox 93 97 96 Oxygen Delivery Method Nasal Cannula Nasal Cannula Nasal Cannula Oxygen Flow Rate (L/min) 2 2 2 Positive well nourished General Appearance ED: NAD; Negative for pallor HEENT Reports moist mucous membranes normocephalic and atraumatic Eyes PERRL and EOMs intact bilaterally General Eye ED: Negative for pale conjunctiva or scleral icterus Resp normal respiratory effort Effort and Inspection: respiratory distress Cardio regular rate and regular rhythm GI normal to inspection, nondistended, normoactive bowel sounds Extremity General Extremety ED: Negative for edema or tenderness General Extremity: Negative for edema Neuro oriented x3 and CN's II-XII intact bilaterally Sensorium / Orientation: awake and alert Psych mental status grossly normal Skin Skin Narrative: Faint erythema to the bilateral tibias without crepitance, warmth, induration. Nontender to palpate General Skin Exam: Negative for jaundice or pallor Heart Score History: Slightly/Non-Suspicious ECG: Normal Age: >/= 65 years Risk Factors: >/= 3 Risk Factors or History of CAD Score: 4 MDM MDM MDM Narrative Medical decision making narrative: 89 with chest pain across her chest which been present for several hours prior to arrival. EKG performed on arrival shows normal sinus rhythm with a ventricular of 71 bpm without sign of ischemic change or dysrhythmia. CBC shows a slight leukocytosis of 15.8 although her last CBC in May was 13. She has no cough, fever, shortness of breath. Hemoglobin stable at 11.5. Renal function and electrolytes are normal. High-sensitivity troponin is 5 and the delta troponin is 5. Chest x-ray on my interpretation shows no acute cardiopulmonary process and the radiologist does agree. Patient did require 2 doses of morphine for pain control although she still saying she is having pain. I do not believe this is cardiac in nature. She states she takes Windsor 3 times a day at home for pain prescribed by pain management. I recommend she continue this at home. She is counseled to follow-up with pain management if her pain continues. She is given return precautions well. Impression: 1. Leukocytosis 2. Chest pain noncardiac Lab Data Attestation: I reviewed the patient's lab results. Labs: Laboratory Results - last 24 hr 08/25/21 08/25/21 08/25/21 14:10 14:10 14:36 WBC 15.8 H RBC 4.55 Hgb 11.5 L Hct 39.3 MCV 86.4 MCH 25.3 L MCHC 29.3 L RDW Std Deviation 52.6 H RDW Coeff of Ayush 16.7 H Plt Count 318 MPV 9.5 Immature Gran % (Auto) 0.400 Neut % (Auto) 83.1 H Lymph % (Auto) 7.8 L Caroline % (Auto) 5.9 Eos % (Auto) 2.2 Baso % (Auto) 0.6 Absolute Neuts (auto) 13.2 H Absolute Lymphs (auto) 1.23 Nucleated RBC % 0 Sodium Cancelled 138 Potassium Cancelled 4.6 Chloride Cancelled 99 Carbon Dioxide Cancelled 37.0 H Anion Gap Cancelled 2 L BUN Cancelled 15 Creatinine Cancelled 1.03 H Estim Creat Clear Calc Cancelled 97.07 Est GFR (MDRD) Af Amer Cancelled 67 Est GFR (MDRD) Non-Af Cancelled 55 L BUN/Creatinine Ratio Cancelled 14.6 Glucose Cancelled 121 H Calcium Cancelled 9.7 Troponin I High Sens Cancelled 5 08/25/21 14:36 WBC RBC Hgb Hct MCV MCH MCHC RDW Std Deviation RDW Coeff of Ayush Plt Count MPV Immature Gran % (Auto) Neut % (Auto) Lymph % (Auto) Caroline % (Auto) Eos % (Auto) Baso % (Auto) Absolute Neuts (auto) Absolute Lymphs (auto) Nucleated RBC % Sodium Potassium Chloride Carbon Dioxide Anion Gap BUN Creatinine Estim Creat Clear Calc Est GFR (MDRD) Af Amer Est GFR (MDRD) Non-Af BUN/Creatinine Ratio Glucose Calcium Troponin I High Sens 5 Radiography Diagnostic Testing: Clinical Impression(s) from Imaging Studies Chest X-Ray 08/25/21 14:02 IMPRESSION: Moderate cardiomegaly. Electronically Signed: Roe Sy MD at 14:37 EDT , Discharge Plan Triage Chief Complaint: Chest Pain ED Provider: Homar Garland Dx/Rx/DC Orders Instructions: ED Chest Pain, Noncardiac Prescriptions: No Action levothyroxine [Synthroid] 50 mcg tablet 50 mcg PO DAILY RF: 0 amlodipine [Norvasc] 5 mg tablet 5 mg PO DAILY RF: 0 pantoprazole 40 mg tablet,delayed release (DR/EC) 40 mg PO DAILY RF: 0 ondansetron 4 mg tablet,disintegrating 4 mg PO Q6H RF: 0 albuterol sulfate 90 mcg/actuation HFA aerosol inhaler 2 puff inhalation Q6H PRN (Reason: shortness of breath or wheezing) Qty: 8.5 RF: 6 metformin 500 MG tablet 500 mg PO DAILY RF: 0 hydrocodone-acetaminophen 1 EACH tablet 1 ea PO Q6H PRN (Reason: Pain 1-10 Or Fever) RF: 0 gabapentin 400 MG capsule 400 mg PO BREAKFAST RF: 0 Clonazepam 0.5 MG tablet 0.5 mg PO QHS PRN (Reason: RESTLESS LEG) RF: 0 atorvastatin 80 MG tablet 80 mg PO QHS Qty: 90 RF: 0 aspirin 325 MG tablet 325 mg PO DAILY@0800 Qty: 30 RF: 1 hydrochlorothiazide 25 mg Tablet 25 mg PO DAILY RF: 0 atenolol 50 mg Tablet 50 mg PO QHS RF: 0 budesonide-formoterol [Symbicort] 160-4.5 mcg/actuation Hfa Aerosol Inhaler 1 puff INHALATION BID RF: 0 gabapentin 400 mg capsule 800 mg PO QHS RF: 0 cefdinir 300 mg capsule 300 mg PO BID RF: 0 losartan 50 MG tablet 100 mg PO DAILY RF: 0 Primary Care Provider: Fadumo Mandel Referrals: Fadumo Mandel DO [Primary Care Provider] - Disposition Disposition: Home, Self Care Discharge Date/Time: 08/25/21 18:07
--- NOTE | 2021-08-25 14:02 | RAD_ITS ---
STUDY: X-RAY CHEST REASON FOR EXAM: Female, 75 years old. Sternal chest pressure. TECHNIQUE: Single AP portable view of the chest. COMPARISON: Comparison is made with prior study dated 06/07/2021. FINDINGS: EKG electrodes are seen. The lungs are clear and expanded. There is no demonstrated pleural abnormality. There is moderate cardiac enlargement. Normal mediastinum and graciela. Normal visualized pulmonary arteries. There is atherosclerotic tortuosity of the aortic arch and descending thoracic aorta. There are diffuse degenerative changes of the visualized thoracic spine. Groin with fixation of the lower thoracic and lumbar spines. Status post right shoulder replacement. There is no demonstrated abnormality of the visualized soft tissue structures of the upper abdomen. RAD/Chest 1 View (Portable) IMPRESSION: Moderate cardiomegaly. Electronically Signed: Roe Sy MD at 14:37 EDT ,
[2021-08-25] MEDS: Morphine 4 MG/ML Syringe IV ×2 (14:15→15:25)
[2021-08-25] MEDS: Ondansetron 4 MG/2 ML Vial IV (14:15)
[2021-08-25 14:19] VITALS: BP 127/87; PULSE 78; RESP 14; O2SAT 84
[2021-08-25 14:24] VITALS: O2SAT 93
[2021-08-25 14:30] LABS: Absolute Lymphocyte Count 1.23 X10^3/uL (0.83-4.51); Absolute Neutrophil Count 13.2 X10^3/uL (2.0-7.7); Basophil% 0.6 % (0-1); Eosinophil# 0.35 X10^3/uL; Eosinophils% 2.2 % (0-5); Hematocrit 39.3 % (37-47); Hemoglobin 11.5 g/dL (12.0-15.0); Lymphocyte # 1.23 X10^3/ul (0.83-4.51); Lymphocyte % 7.8 % (19-41); Mean Corp Hgb Conc 29.3 g/dL (32-36); Mean Corpuscular Hgb 25.3 pg (27.0-32.0); Mean Corpuscular Volume 86.4 fL (81-99); Mean Platelet Vol. 9.5 fl (6.2-12.0); Monocyte# 0.93 X10^3/uL; Monocyte% 5.9 % (0-10); NRBC Flagged by Analyzer 0 % (0-5); Neutrophil # 13.17 X10^3/uL (2.7-7.7); Neutrophil % 83.1 % (47-70); Platelet Count 318 K/mm3 (150-450); RBC Distribution Width CV 16.7 % (11.6-14.6); RBC Distribution Width SD 52.6 fl (35.1-43.9); Red Blood Count 4.55 M/mm3 (4.2-5.4); White Blood Count 15.8 K/mm3 (4.4-11.0)
[2021-08-25 15:00] VITALS: BP 154/76; PULSE 62; RESP 16; O2SAT 97
[2021-08-25 15:05] LABS: Anion Gap 2 (5-15); BUN 15 mg/dL (7-18); BUN/Creat Ratio 14.6 RATIO (10-20); Calcium,Total 9.7 mg/dL (8.5-10.1); Chloride 99 mmol/L (98-107); Creatinine, Serum 1.03 mg/dL (0.55-1.02); EST Glomerular Filtration Rate 55 mL/min (>60); Est Glom Filt Rate - Afr Amer 67 mL/min (>60); Estimated Creatinine Clearance 97.07 ml/min; Glucose 121 mg/dL (74-106); Potassium 4.6 mmol/L (3.5-5.1); Sodium Level 138 mmol/L (136-145); Troponin-I HS (w/2H Reflex) 5 pg/mL (3.0-54.0)
[2021-08-25 16:00] VITALS: PULSE 88; RESP 24; O2SAT 96
[2021-08-25 16:39] LABS: Reflex Troponin-HS? (from REC) Y
[2021-08-25 17:24] LABS: Troponin-I HS 5 pg/mL (3.0-54.0)
== END 2021-08-25 18:07 | disposition home or self-care (01) ==
PROVIDERS: Emergency Provider Student in an Organized Health Care Education/Training Program; PCP Internal Medicine; Visit Provider Student in an Organized Health Care Education/Training Program
DX: R07.89 Other chest pain (principal); E11.42 Type 2 diabetes mellitus with diabetic polyneuropathy; D72.829 Elevated white blood cell count, unspecified; I10 Essential (primary) hypertension; R06.00 Dyspnea, unspecified; R60.9 Edema, unspecified; E03.9 Hypothyroidism, unspecified; M79.7 Fibromyalgia; K21.9 Gastro-esophageal reflux disease without esophagitis; F32.A Depression, unspecified; J45.909 Unspecified asthma, uncomplicated
CPT/HCPCS: 71045; 80048; 84484; 85025; 93005; 96374; 96375; 96376; 99285; A4216; J2405

== ENCOUNTER → 2021-09-26 | Outpatient (CLI) | payer MEDICARE, SELFPAY ==
--- NOTE | 2021-09-26 09:42 | BI_ITS ---
MAMMOGRAPHY - BILATERAL SCREENING REASON FOR EXAM: Female, 75 years old. Routine annual screening examination. PERTINENT HISTORY: Non-contributory. Remote right excisional breast biopsy. TECHNIQUE: Digital bilateral breast darryl (3D mammographic acquisition) in the CC and MLO projections. 2-D mediolateral oblique (MLO) and craniocaudad (CC) views of both breasts were obtained. CAD: Full Field Digital Mammography with Computer Added Detection was performed. COMPARISON: Comparison is made with prior study dated 12/23/2018 and 05/17/2017. FINDINGS: Breast Composition: The breasts are almost entirely fatty. There are no dominant masses or suspicious calcifications. No other significant abnormalities are identified. There has been no significant change since the prior study. BI/SCRN MAMM (CAD)W/DARRYL BILAT IMPRESSION: Stable bilateral screening mammogram. Yearly follow-up mammogram recommended. (A) ASSESSMENT CATEGORY: BIRADS Category 1: Negative. A letter regarding these results will be sent to the patient by the facility within 30 days. Approximately 10% of breast cancers are not detected by mammography. A normal mammogram should not delay biopsy of a clinically suspicious abnormality. [id number] Electronically Signed: Roe Sy MD at 13:12 EDT ,
--- NOTE | 2021-09-26 09:50 | BD_ITS ---
STUDY: DUAL ENERGY X-RAY ABSORPTIOMETRY / DXA REASON FOR EXAM: Female, 75 years old. [id number] TECHNIQUE: Bone Mineral Density (BMD) measurements of lumbar spine and both forearms were obtained. COMPARISON: Comparison is made with prior study dated 12/23/2018. FINDINGS: Right Forearm: g/cm2 (0.640) / T-score (1.1) / Z-score (3.7) Left Forearm: g/cm2 (0.608) / T-score (0.5) / Z-score (3.1) BD/Dexa Bone Density/Append Skel IMPRESSION: The patient is considered normal as outlined below according to World Walter Organization (WHO) criteria with a low fracture risk. There has been worsening of bone density since the previous examination. Reference Information: The T-score is the number of standard deviations above or below the standard which is normal for young adults at their peak bone mineral density. The World Health Organization (WHO) interprets the T-scores as follows: Above -1 Normal bone density Between -1 and -2.5 Osteopenia Equal to / or below -2.5 Osteoporosis As a practical clinical guideline, osteopenia may be graded as follows: Mild -1 through -1.5 Moderate -1.6 through -2.0 Severe -2.1 through -2.4 The Z-score is the number of standard deviations above or below age-matched controls. A Z-score of less than -1.5 would be considered abnormal. References: 1. NIH Osteoporosis and Related Bone Diseases www osteo.org 2. International Society for Clinical Densitometry www iscd.org 3. National Osteoporosis Foundation www nof.org Electronically Signed: Roe Sy MD at 11:04 EDT ,
== END | disposition home or self-care (01) ==
LOC: OPBD 09:40
PROVIDERS: PCP Internal Medicine; Referring Provider Internal Medicine; Visit Provider Internal Medicine
DX: Z12.31 Encounter for screening mammogram for malignant neoplasm of breast (principal); Z78.0 Asymptomatic menopausal state
CPT/HCPCS: 77063; 77067; 77081

== ENCOUNTER → 2021-12-29 | Outpatient (CLI) | payer MEDICARE, SELFPAY ==
[2021-12-29 12:25] LABS: Amphetamine Urine VISTA NEGATIVE (<1000 ng/mL); Barbiturate Urine VISTA NEGATIVE (< 200 ng/mL); Benzodiazepine Urine VISTA NEGATIVE (< 200 ng/mL); Cocaine Urine VISTA NEGATIVE (< 300 ng/mL); Ecstacy Urine VISTA NEGATIVE (< 500 ng/mL); Methadone Urine VISTA NEGATIVE (< 300 ng/mL); PCP Urine VISTA NEGATIVE (< 25 ng/mL); THC Urine VISTA NEGATIVE (< 50 ng/mL); Vista UDS pH Range 5
== END | disposition home or self-care (01) ==
LOC: LAB 10:18
PROVIDERS: PCP Internal Medicine; Referring Provider Anesthesiology Pain Medicine; Visit Provider Anesthesiology Pain Medicine
DX: F11.20 Opioid dependence, uncomplicated (principal)
CPT/HCPCS: 80307

== ENCOUNTER → 2022-05-18 | Outpatient (CLI) | payer MEDICARE, SELFPAY ==
[2022-05-18 13:52] LABS: Absolute Lymphocyte Count 1.44 X10^3/uL (0.83-4.51); Absolute Neutrophil Count 8.4 X10^3/uL (2.0-7.7); Basophil# 0.06 X10^3/uL; Basophil% 0.5 % (0-1); Eosinophil# 0.52 X10^3/uL; Eosinophils% 4.6 % (0-5); Hematocrit 42.1 % (37-47); Hemoglobin 12.2 g/dL (12.0-15.0); Lymphocyte # 1.44 X10^3/ul (0.83-4.51); Lymphocyte % 12.8 % (19-41); Mean Corpuscular Hgb 24.8 pg (27.0-32.0); Mean Corpuscular Volume 85.7 fL (81-99); Mean Platelet Vol. 9.6 fl (6.2-12.0); Monocyte# 0.75 X10^3/uL; Monocyte% 6.6 % (0-10); NRBC Flagged by Analyzer 0 % (0-5); Neutrophil # 8.44 X10^3/uL (2.7-7.7); Neutrophil % 74.8 % (47-70); Platelet Count 323 K/mm3 (150-450); RBC Distribution Width CV 18.1 % (11.6-14.6); RBC Distribution Width SD 55.6 fl (35.1-43.9); Red Blood Count 4.91 M/mm3 (4.2-5.4); White Blood Count 11.3 K/mm3 (4.4-11.0)
[2022-05-18 14:07] LABS: Anion Gap 9 (5-15); BUN 18 mg/dL (7-18); Calcium,Total 9.7 mg/dL (8.5-10.1); Chloride 94 mmol/L (98-107); Creatinine, Serum 1.63 mg/dL (0.55-1.02); EST Glomerular Filtration Rate 33 mL/min (>60); Est Glom Filt Rate - Afr Amer 39 mL/min (>60); Glucose 109 mg/dL (74-106); Potassium 3.7 mmol/L (3.5-5.1); Sodium Level 135 mmol/L (136-145)
[2022-05-18 14:15] LABS: BNP,B-Type NATRIURETIC PEPTIDE 79.3 pg/mL (0-100)
== END | disposition home or self-care (01) ==
LOC: MTLAB 12:49
PROVIDERS: PCP Internal Medicine; Referring Provider Nurse Practitioner Family; Visit Provider Nurse Practitioner Family
DX: L03.115 Cellulitis of right lower limb (principal); N18.30 Chronic kidney disease, stage 3 unspecified
CPT/HCPCS: 36415; 80048; 83880; 85025

== ENCOUNTER → 2022-06-20 | Outpatient (CLI) | payer MEDICARE, SELFPAY ==
--- NOTE | 2022-06-20 09:45 | VDLE_ITS ---
Reason For Study: Edema RIGHT LEFT GSV is normal. GSV is normal. CFV is compressible, spontaneous, phasic, CFV is compressible, spontaneous, phasic, competent and demonstrates normal competent, and demonstrates normal augmentation. augmentation. FV is compressible, spontaneous, phasic, FV is compressible, spontaneous, phasic, competent and demonstrates normal competent and demonstrates normal augmentation. augmentation. POP V is compressible, spontaneous, phasic, POP V is compressible, spontaneous, phasic, competent and demonstrates normal competent and demonstrates normal augmentation. augmentation. T/P Trunk is compressible. T/P Trunk is compressible. PTV is compressible. PTV is compressible. RT PerV is compressible. LT PerV is compressible. Procedure This is a venous duplex using B-mode, color flow and spectral Doppler. Exam performed in department. The study was technically difficult. A preliminary report was called and/or faxed to [facility]. VL/Venous Duplex US - Julio Extrem Interpretation Summary No evidence for acute deep venous thrombosis bilateral lower extremities with p atent and compressible bilateral great saphenous veins. This examination was noted to be technically difficult Ordering Physician: Rossana Gaytan Referring Physician: Rossana Gaytan Performed By: Skye Sanchez RVT
--- NOTE | 2022-06-20 10:00 | ECHOCS_ITS ---
Reason For Study: Anasarca Procedure This was a 2D Doppler, Color Flow transthoracic echocardiogram. The study was technically difficult. Contrast injection was performed. Exam performed in department. Left Ventricle Based upon the 2D echocardiographic and contrast enhanced images obtained there appears to be normal left ventricular size, wall motion, and systolic function. The estimated ejection fraction is 65 %. No evidence for diastolic dysfunction. Right Ventricle Based upon the 2D echocardiographic images obtained there appears to be normal right ventricular size and systolic function. Atria Normal left atrium. Normal right atrium. No doppler evidence for ASD. Mitral Valve There is no mitral annular calcification. Normal mitral valve. Trivial mitral valve insufficiency. Tricuspid Valve Normal tricuspid valve. Trivial tricuspid valve insufficiency. Unable to estimate RV systolic pressure/pulmonary artery pressure due to technically difficult study. Aortic Valve Trisinus/trileaflet aortic valve. Mild focal aortic valve thickening. Pulmonic Valve The pulmonic valve is not well visualized. Great Vessels The aortic root is not well visualized. Pericardium/Pleural No pericardial effusion. Epicardial fat. Medication 20 gauge I.V. with prn adaptor inserted into right arm. Diluted definity 3.5ml given slow IV push to enhance endocardial definition. MMode/2D Measurements & Calculations LVIDd: 5.2 cm IVSd: 1.0 cm LVIDs: 3.4 cm LVPWd: 0.97 cm FS: 33.8 % Time Measurements MV dec time: 0.29 sec Doppler Measurements & Calculations MV E max jeferson: 89.0 cm/sec Lat Peak E' Jeferson: 9.5 cm/sec Med Peak E' Jeferson: 7.4 cm/sec MV A max jeferson: 106.0 cm/sec E/E' lat: 9.4 E/E' med: 12.0 MV E/A: 0.84 MV V2 max: 123.4 cm/sec MV P1/2t max jeferson: 117.3 cm/sec Ao V2 max: 163.7 cm/sec MV max P.1 mmHg MV P1/2t: 94.4 msec Ao max P.7 mmHg MV V2 mean: 61.4 cm/sec MV mean P.9 mmHg MV dec slope: 364.0 cm/sec2 MV V2 VTI: 34.9 cm MVA(P1/2t): 2.3 cm2 LV V1 max: 110.4 cm/sec PA V2 max: 77.5 cm/sec LV V1 max P.9 mmHg ECHO/Echo Complete W/ Contrast Interpretation Summary The study was technically difficult. Contrast injection was performed. Based upon the 2D echocardiographic and contrast enhanced images obtained there appears to be normal left ventricular size, wall motion, and systolic function. The estimated ejection fraction is 65 %. Trivial mitral valve insufficiency. Trivial tricuspid valve insufficiency. Mild focal aortic valve thickening. Epicardial fat. Unable to estimate RV systolic pressure/pulmonary artery pressure due to techni charlene difficult study. No evidence for diastolic dysfunction. Ordering Physician: Rossana Gaytan Performed By: Tay Oviedo RCS
== END | disposition home or self-care (01) ==
LOC: CVS 09:43
PROVIDERS: PCP Nurse Practitioner Family; Visit Provider Nurse Practitioner Family
DX: R60.0 Localized edema (principal); R60.1 Generalized edema
CPT/HCPCS: 93306; 93970; Q9957; A4216; C8929

== ENCOUNTER → 2022-07-03 | Outpatient (CLI) | payer MEDICARE, SELFPAY ==
--- NOTE | 2022-07-03 08:02 | RDU_ITS ---
Reason For Study: CKD Stage 3 Right Renal Artery Left Renal Dimensions Right renal artery mid 96.6/18.1 Unable to visualize left kidney and PSV/EDV. corresponding vessels. Right RAR 2.33. Right Renal Dimensions Right kidney size 10.14 cm . Right cortical dimension 1.58 cm . Aorta Proximal abdominal aorta 2.42 x 2.31 cm . Proximal abdominal aorta peak systolic velocity is 41.5 cm/sec . Distal abdominal aorta 1.77 x 1.74 cm . Procedures Technically limited study due to patient body habitus and anatomy. Limited views obtained. Non- diagnostic exam. VL/Renal Artery Duplex Ultrasound Interpretation Summary The abdominal aorta measures normal at 2.42 x 2.31 cm where it could be imaged. The right renal artery is poorly imaged and appears to have a normal flow rate. The right kidney size is 10.14 cm which is normal The left kidney was unable to be visualized This is a technically very limited examination and is felt to be nondiagnostic. . Body habitus and anatomy has complicated this inspection Ordering Physician: Rossana Gaytan Referring Physician: Rossana Gaytan Performed By: Lan Freitas RVT
== END | disposition home or self-care (01) ==
LOC: CVS 08:00
PROVIDERS: PCP Nurse Practitioner Family; Referring Provider Nurse Practitioner Family; Visit Provider Nurse Practitioner Family
DX: R60.1 Generalized edema (principal); N18.30 Chronic kidney disease, stage 3 unspecified
CPT/HCPCS: 93975

== ENCOUNTER → 2022-09-05 | Outpatient (CLI) | payer MEDICARE, SELFPAY ==
--- NOTE | 2022-09-05 12:54 | US_ITS ---
INDICATION: CKD 3A EXAMINATION: Ultrasound US Kidney(s) complete (eg, kidneys and bladder) TECHNIQUE: Balderas scale and color doppler images were obtained of the kidneys. COMPARISON: CT September 15, 2018. FINDINGS: RIGHT KIDNEY: 10.8 x 4.5 x 5.0 cm. There is no hydronephrosis. No shadowing calculus, focal lesion or perinephric collection is demonstrated. LEFT KIDNEY: 12.1 x 2.8 x 4.5 cm. There is no hydronephrosis. No shadowing calculus, focal lesion or perinephric collection is demonstrated. URINARY BLADDER: Bladder anechoic. Prevoid volume 296 mL. No focal wall thickening. Bilateral ureteral jets are seen.. OTHER: Mild increased right hepatic echogenicity. US/Kidney and Bladder IMPRESSION: No acute renal finding. No evidence of obstructive uropathy. Slightly increased hepatic echogenicity which can be seen with mild steatosis. Electronically Signed: Chad Saavedra MD at 6:30 EDT ,
[2022-09-05 14:04] LABS: Anion Gap 7 (5-15); BUN 12 mg/dL (7-18); BUN/Creat Ratio 12.1 RATIO (10-20); Calcium,Total 9.8 mg/dL (8.5-10.1); Chloride 97 mmol/L (98-107); Creatinine, Serum 0.99 mg/dL (0.55-1.02); EST Glomerular Filtration Rate 58 mL/min (>60); Est Glom Filt Rate - Afr Amer 70 mL/min (>60); Glucose 100 mg/dL (74-106); Potassium 3.6 mmol/L (3.5-5.1); Sodium Level 135 mmol/L (136-145)
[2022-09-07 16:09] LABS: Anti-dsDNA Ab 2 IU/mL (0-9); Complement C3 164 mg/dL (82-167); Cytoplasmic Ab (C-ANCA) <1:20 titer (Neg:<1:20); PROEL- A/G Ratio 0.8 (0.7-1.7); PROEL- Albumin 3.2 g/dL (2.9-4.4); PROEL- Alpha-1 Globulin 0.3 g/dL (0.0-0.4); PROEL- Alpha-2 Globulin 1.1 g/dL (0.4-1.0); PROEL- Beta Globulin 1.2 g/dL (0.7-1.3); PROEL- Gamma Globulin 1.5 g/dL (0.4-1.8); PROEL- Globulin, Total 4.1 g/dL (2.2-3.9); PROEL- TOTAL PROTEIN 7.3 g/dL (6.0-8.5); Perinuclear Ab (P-ANCA) <1:20 titer (Neg:<1:20)
== END | disposition home or self-care (01) ==
LOC: US 12:29
PROVIDERS: PCP Nurse Practitioner Family; Referring Provider Internal Medicine Nephrology; Visit Provider Internal Medicine Nephrology
DX: N18.31 Chronic kidney disease, stage 3a (principal)
CPT/HCPCS: 36415; 76770; 80048; 84165; 86160; 86225; 86256

== ENCOUNTER 2022-09-18 10:15 | Outpatient (RCR) | payer MEDICARE, SELFPAY ==
[2022-08-28 09:59] VITALS: BP 155/55; PULSE 56; RESP 18; TEMP 36.4; BMI 58.6
--- NOTE | 2022-08-28 13:04 | PCM.WC.HP ---
History of Present Illness Date of Service: 08/28/22 Chief Complaint: Lower extremity swelling and edema (bilateral) History of Wound: This is a 76-year-old female who presents with swelling and edema in her lower extremities bilaterally. The patient states her reason for evaluation is due to swelling in her legs. The swelling has been chronic in nature, more severe within the last several months. The patient is morbidly obese. She lives alone. She sleeps in a recliner. Activity is minimal. She requires the use of a walker for ambulation due to weakness, balance problems, and fear of falling. She sits most of each day, often engaging in watching TV or knitting. The patient denies a history of lower extremity thrombophlebitis. Patient underwent a venous duplex examination at [facility] several months ago, which was negative for thrombophlebitis. Home health nursing aides assist the patient in her home approximately 4-5 days/week. The patient's BMI is 58.6. A noninvasive lower extremity arterial study was performed recently in the patient's primary care physician's office, with an CARLOS ENRIQUE of 0.67 on the left and 0.8 on the right. [facility] Medical History Asthma Chronic cough Chronic low back pain Depression Diabetes mellitus Edema of both legs Fibromyalgia GERD (gastroesophageal reflux disease) History of cerebrovascular accident Hypertension Hypothyroidism IBS (irritable bowel syndrome) Insomnia Lumbar spinal stenosis Morbid obesity Morbid obesity with BMI of 50.0-59.9, adult Obstructive sleep apnea Peripheral neuropathy Psoriatic arthritis Psoriatic arthritis Restless leg syndrome Rheumatoid arthritis Swelling of left lower extremity Swelling of right lower extremity Type 2 diabetes mellitus Home Medications Clonazepam 0.5 mg PO QHS PRN RESTLESS LEG 03/11/20 [History Last Taken Unknown] hydrocodone-acetaminophen 5-325mg 5mg-325mg 1 ea PO Q6H PRN Pain 1-10 Or Fever 03/11/20 [History Last Taken Unknown] metformin 500 mg tablet 500 mg PO DAILY 03/11/20 [History Last Taken Unknown] aspirin 325 mg tablet,delayed release 325 mg PO DAILY@0800 #30 tabs 03/13/20 [Rx Last Taken Unknown] atorvastatin 80 mg tablet 80 mg PO QHS #90 tabs 03/13/20 [Rx Last Taken Unknown] amlodipine 5 mg tablet (Norvasc) 5 mg PO DAILY 12/08/20 [History Last Taken Unknown] levothyroxine 50 mcg tablet (Synthroid) 50 mcg PO DAILY 12/08/20 [History Last Taken Unknown] pantoprazole 40 mg tablet,delayed release 40 mg PO DAILY 12/08/20 [History Last Taken Unknown] atenolol 50 mg tablet 50 mg PO BID 06/07/21 [History Last Taken Unknown] hydrochlorothiazide 25 mg tablet 25 mg PO DAILY 06/07/21 [History Last Taken Unknown] gabapentin 400 mg capsule 800 mg PO BID 08/25/21 [History Last Taken Unknown] losartan 50 mg tablet 100 mg PO DAILY 09/29/21 [History Last Taken Unknown] pentoxifylline 400 mg tablet,extended release 400 mg PO DAILY 09/29/21 [History Last Taken Unknown] albuterol sulfate 90 mcg/actuation aerosol inhaler (Ventolin HFA) 2 puff inhalation Q4H PRN PRN Shortness Of Breath 08/28/22 [History Last Taken Unknown] budesonide-formoterol HFA 160 mcg-4.5 mcg/actuation aerosol inhaler (Symbicort) 1 puff inhalation BID 08/28/22 [History Last Taken Unknown] Allergy/AdvReac Type Severity Reaction Status Date / Time No Known Allergies Allergy Verified 08/28/22 10:42 Surgical History H/O lumbosacral spine surgery H/O total hysterectomy History of bilateral knee replacement History of cholecystectomy History of cholecystectomy History of hysterectomy History of lumbar laminectomy History of right shoulder replacement History of right shoulder replacement Total knee replacement status Social History Smoking Status: Never smoker Vital Signs Vital Signs Vital Signs: 08/28/22 09:59 Temperature 97.5 F L Temperature Source Temporal Pulse Rate 56 L Respiratory Rate 18 Blood Pressure 155/55 H Blood Pressure Mean 88 Blood Pressure Source Monitor Blood Pressure Position Sitting Blood Pressure Location Right Forearm Oxygen Delivery Method Room Air Weight Weight: 290 lb Body Mass Index (BMI) 58.6 Physical Exam Const alert, oriented x3, no apparent distress and well nourished Constitutional Narrative: The patient is morbidly obese. General Appearance: cooperative, comfortable, well kempt and well developed Orientation / Consciousness: awake, oriented to person, oriented to place and oriented to time HEENT normocephalic and head/scalp atraumatic Head and Scalp: normal to inspection, normocephalic and atraumatic External Ear: external ears normal Eyes PERRL and EOMs intact bilaterally General Eye: normal appearance of both eyes Resp normal respiratory effort, normal air movement, no retractions and no use of accessory muscles Effort and Inspection: able to speak in complete sentences and symmetric chest movement Extremity no calf tenderness General Extremity: Negative for clubbing or cyanosis Skin Wound Narrative: Moderate swelling and edema are noted in the patient's lower extremities bilaterally. Despite the swelling and edema, there are no significant skin changes, open wounds, or ulcerations. The skin in the lower extremities is intact, and relatively normal in appearance. Neuro oriented x3, CN's II-XII intact bilaterally, moves all extremities and no focal motor deficits Sensorium / Orientation: awake, alert, oriented to person, oriented to place and oriented to time Psych Appearance: grossly normal and appropriate Attitude: calm Activity / Motor Behavior: appropriate eye contact Speech: normal speech Mood & Affect: euthymic mood Thought Process: normal thought process Thought Content: normal thought content Attention / Concentration: attention grossly intact Debridement Note Debridement Note No debridement was completed: No debridement was completed today (There are no open wounds or ulcerations.) Post-Debridement Measurements and Additional Note: Post-Debridement Measurements/Treatment - Nurse 1 - General Ulcer Assessment Start: 08/28/22 09:57 Freq: Status: Active Protocol: .OTTO Activity Type Activity Date Activity User E-sign Co-sign Detail Recorded Client Recorded Date Recorded By Document 08/28/22 09:59 [id number] 08/28/22 10:14 08/28/22 09:59 - Today's Visit Information Type of service Initial Visit Arrival Mode Wheelchair Transfer Assistance None Accompanied by self Patient Identification Verified (Name & Yes ) Patient Requires Transmission-Based No Precautions Height and Weight Height 4 ft 11 in Weight 290 lb Weight in Pounds 290.0 lbs Weight Measurement Method Stated by Patient Body Mass Index (BMI) 58.6 BMI Classification Obese BSA - Candido 2.16 Vital Signs Temperature (97.8 F-99.1 F) 97.5 F L Temperature Source Temporal Pulse Rate (60-100) 56 L Pulse Location Monitor Respiratory Rate (12-18) 18 Respiratory rate source Observation Oxygen Delivery Method Room Air Blood Pressure (90/60-120/80) 155/55 H Blood Pressure Mean 88 Source Monitor Position Sitting Blood Pressure Location Right Forearm History Since Last Visit- (Skip if this is Patient's initial visit) Left Footwear Regular Shoe Right Footwear Regular Shoe Pain Scale: 0-10 Numeric Is Patient Pain Free? Yes Lower Extremity Assessment/ Foot Assessment/ Toe Nail Assessment Right -Posterior Tibial Palpable No -Posterior Tibial Doppler Monophasic -Dorsalis Pedis Palpable Yes -Dorsalis Pedis Doppler Monophasic -Extremity Color Normal -Hair Growth on Legs No -Hair Growth on Toes No -Temperature of Extremity Warm -Capillary Refill Less than 3 Seconds -Dependent Rubor No -Blanched when Elevated No -Lipodermatosclerosis No -Other Deformity No -Prior Foot Ulcer No -Charcot Joint No -Prior Amputation No -Thick Yes -Discolored No -Deformed No -Improper Length & Hygeine No Left -Popliteal Doppler Monophasic -Posterior Tibial Palpable No -Posterior Tibial Doppler Monophasic -Dorsalis Pedis Palpable Yes -Extremity Color Normal -Hair Growth on Legs No -Hair Growth on Toes No -Temperature of Extremity Warm -Capillary Refill Greater than 3 Seconds -Dependent Rubor No -Blanched when Elevated No -Lipodermatosclerosis No -Other Deformity No -Prior Foot Ulcer No -Charcot Joint No -Prior Amputation No -Thick Yes -Discolored No -Deformed No -Improper Length & Hygeine No Neuropathy Assessment Feet - Top Side and Bottom <Entered> (a) Communication Assessment Preferred language Spanish Supervisor Rose Grading Required No Able to Read Yes Able to Write Yes Communication Tools None Caregiver Communication Skills No Impairment Impairment Right Hearing Abillity Normal Left Hearing Abillity Normal Visual Assistive Devices Glasses Teaching Assessment Preferences Verbal,Written, Audio/Visual, Demonstration Barriers to Learning None Readiness To Learn Excellent Willingness to Engage in Self Management High Activies Readiness to Engage in Self Management High Activities Anxiety Level Calm Cooperation Cooperative Perception Coherent Interest in Health Problem Asks Questions Education Importance Acknowledges Need Does Patient Smoke tobacco or other Yes substances Smoking Status Never smoker Is Patient Diabetic Yes Functional Assessment Recent Decline in Ability to Perform Denies Any Declines Assistive Device With Patient wheelchair Culture/Quaker/Manager Quality Cultural/Quaker Needs that may affect Yes Treatment Plan Would you allow our hospital director employment to Yes meet you for the purpose of spiritual/ emotional support? Manager Quality to contact place of christian Yes Teaching: Wound Center *Welcome to the Wound Center -Person Taught Patient -Teaching Method Discussion -Response to teaching Verbalize understanding (a) 1 - + WC - Nurse 1 - General Ulcer Measurement Start: 08/28/22 09:57 Freq: Status: Active Protocol: Activity Type Activity Date Activity User E-sign Co-sign Detail Recorded Client Recorded Date Recorded By Document 08/28/22 09:59 MW [id number] 08/28/22 10:14 MW 08/28/22 09:59 Wound Center Nurse 1 Lower Limb Edema Present Yes Right Calf (cm) 54.0 Right Ankle (cm) 28.0 Left Ankle (cm) 51.5 Left Foot (cm) 29.2 Assessment/Plan Assessment/Plan (1) Swelling of right lower extremity: CODE(S): M79.89 - Other specified soft tissue disorders (2) Swelling of left lower extremity: CODE(S): M79.89 - Other specified soft tissue disorders (3) Edema of both legs: CODE(S): R60.0 - Localized edema (4) Asthma: CODE(S): J45.909 - Unspecified asthma, uncomplicated QUALIFIERS: Asthma severity: moderate Asthma persistence: persistent Asthma complication type: uncomplicated Qualified Code(s): J45.40 - Moderate persistent asthma, uncomplicated (5) History of cerebrovascular accident: CODE(S): Z86.73 - Personal history of transient ischemic attack (TIA), and cerebral infarction without residual deficits (6) Hypertension: CODE(S): I10 - Essential (primary) hypertension QUALIFIERS: Hypertension type: essential hypertension (7) Morbid obesity with BMI of 50.0-59.9, adult: CODE(S): E66.01 - Morbid (severe) obesity due to excess calories; Z68.43 - Body mass index [BMI] 50.0-59.9, adult (8) Fibromyalgia: CODE(S): M79.7 - Fibromyalgia (9) IBS (irritable bowel syndrome): CODE(S): K58.9 - Irritable bowel syndrome without diarrhea QUALIFIERS: Irritable bowel syndrome type: unspecified Qualified Code(s): K58.9 - Irritable bowel syndrome without diarrhea (10) Rheumatoid arthritis: CODE(S): M06.9 - Rheumatoid arthritis, unspecified QUALIFIERS: Rheumatoid arthritis location: unspecified site Rheumatoid factor presence: unspecified presence Qualified Code(s): M06.9 - Rheumatoid arthritis, unspecified (11) Type 2 diabetes mellitus: CODE(S): E11.9 - Type 2 diabetes mellitus without complications (12) GERD (gastroesophageal reflux disease): CODE(S): K21.9 - Gastro-esophageal reflux disease without esophagitis QUALIFIERS: Esophagitis presence: esophagitis presence not specified Qualified Code(s): K21.9 - Gastro-esophageal reflux disease without esophagitis (13) Chronic low back pain: CODE(S): M54.5 - Low back pain; G89.29 - Other chronic pain QUALIFIERS: Back pain laterality: unspecified Sciatica presence: unspecified whether sciatica present Qualified Code(s): M54.5 - Low back pain; G89.29 - Other chronic pain (14) Restless leg syndrome: CODE(S): G25.81 - Restless legs syndrome (15) Obstructive sleep apnea: CODE(S): G47.33 - Obstructive sleep apnea (adult) (pediatric) (16) Peripheral neuropathy: CODE(S): G62.9 - Polyneuropathy, unspecified QUALIFIERS: Peripheral neuropathy type: polyneuropathy, unspecified (17) Hypothyroidism: CODE(S): E03.9 - Hypothyroidism, unspecified QUALIFIERS: Hypothyroidism type: unspecified (18) History of lumbar laminectomy: CODE(S): Z98.890 - Other specified postprocedural states (19) History of hysterectomy: CODE(S): Z90.710 - Acquired absence of both cervix and uterus (20) History of cholecystectomy: CODE(S): Z90.49 - Acquired absence of other specified parts of digestive tract (21) History of right shoulder replacement: CODE(S): Z96.611 - Presence of right artificial shoulder joint (22) History of bilateral knee replacement: CODE(S): Z96.653 - Presence of artificial knee joint, bilateral PLAN: Plan This is a 76-year-old morbidly obese female who presents with swelling and edema in her lower extremities. She sleeps in a recliner. She is an active and does not ambulate liberally, requiring a walker for assistance. She sits for long periods each day while watching TV or knitting. As result of her routine habits, the patient has developed chronic swelling and edema in her lower extremities. Fortunately, there are no significant skin changes, wounds, or ulcerations. A lengthy discussion has been undertaken with the patient as to the appropriate measures to be implemented in an effort to minimize the amount of swelling and edema in her lower extremities. The patient has been encouraged to elevate her lower extremities to heart level, or higher. This is to be achieved during sleeping and waking hours. Prolonged idle sitting has been discouraged. Activity has been encouraged, though the patient's physical impediments will likely deter her from enhancing her activity level to any significant degree. Weight loss has been recommended. She has been encouraged to collaborate with her primary care physician to discuss weight loss options. We are to initiate the use of SurePress wraps to the patient's lower extremities. These will be applied on a daily basis, and her home health nursing aides will assist. Ultimately, graduated compression stockings or CircAid garments will be implemented. The patient may require custom-fitted stockings. Additionally, pneumatic mechanical compression pumps may also be of benefit, and will be considered in the future. The patient is to return in 2 weeks for reassessment. Total time: 60 minutes
[2022-09-11 10:34] VITALS: BP 174/57; PULSE 60; RESP 18; TEMP 36.2; BMI 58.6
--- NOTE | 2022-09-11 14:47 | PCM.WC.HP ---
History of Present Illness Date of Service: 09/11/22 Chief Complaint: Lower extremity swelling and edema (bilateral) History of Wound: This is a 76-year-old female who presented with swelling and edema in her lower extremities bilaterally. The patient stated her reason for evaluation is due to swelling in her legs. The swelling has been chronic in nature, more severe within the last several months. The patient is morbidly obese. She lives alone. She sleeps in a recliner. Activity is minimal. She requires the use of a walker for ambulation due to weakness, balance problems, and fear of falling. She sits most of each day, often engaging in watching TV or knitting. The patient denies a history of lower extremity thrombophlebitis. The patient underwent a venous duplex examination at [facility] several months ago, which was negative for thrombophlebitis. Home health nursing aides assist the patient in her home approximately 4-5 days/week. The patient's BMI is 58.6. A noninvasive lower extremity arterial study was performed recently in the patient's primary care physician's office, with an CARLOS ENRIQUE of 0.67 on the left and 0.8 on the right. [facility] Medical History Asthma Chronic cough Chronic low back pain Depression Diabetes mellitus Edema of both legs Fibromyalgia GERD (gastroesophageal reflux disease) History of cerebrovascular accident Hypertension Hypothyroidism IBS (irritable bowel syndrome) Insomnia Lumbar spinal stenosis Morbid obesity Morbid obesity with BMI of 50.0-59.9, adult Obstructive sleep apnea Peripheral neuropathy Psoriatic arthritis Psoriatic arthritis Restless leg syndrome Rheumatoid arthritis Swelling of left lower extremity Swelling of right lower extremity Type 2 diabetes mellitus Home Medications Clonazepam 0.5 mg PO QHS PRN RESTLESS LEG 03/11/20 [History Last Taken Unknown] hydrocodone-acetaminophen 5-325mg 5mg-325mg 1 ea PO Q6H PRN Pain 1-10 Or Fever 03/11/20 [History Last Taken Unknown] metformin 500 mg tablet 500 mg PO DAILY 03/11/20 [History Last Taken Unknown] aspirin 325 mg tablet,delayed release 325 mg PO DAILY@0800 #30 tabs 03/13/20 [Rx Last Taken Unknown] atorvastatin 80 mg tablet 80 mg PO QHS #90 tabs 03/13/20 [Rx Last Taken Unknown] amlodipine 5 mg tablet (Norvasc) 5 mg PO DAILY 12/08/20 [History Last Taken Unknown] levothyroxine 50 mcg tablet (Synthroid) 50 mcg PO DAILY 12/08/20 [History Last Taken Unknown] pantoprazole 40 mg tablet,delayed release 40 mg PO DAILY 12/08/20 [History Last Taken Unknown] atenolol 50 mg tablet 50 mg PO BID 06/07/21 [History Last Taken Unknown] hydrochlorothiazide 25 mg tablet 25 mg PO DAILY 06/07/21 [History Last Taken Unknown] gabapentin 400 mg capsule 800 mg PO BID 08/25/21 [History Last Taken Unknown] losartan 50 mg tablet 100 mg PO DAILY 09/29/21 [History Last Taken Unknown] pentoxifylline 400 mg tablet,extended release 400 mg PO DAILY 09/29/21 [History Last Taken Unknown] albuterol sulfate 90 mcg/actuation aerosol inhaler (Ventolin HFA) 2 puff inhalation Q4H PRN PRN Shortness Of Breath 08/28/22 [History Last Taken Unknown] budesonide-formoterol HFA 160 mcg-4.5 mcg/actuation aerosol inhaler (Symbicort) 1 puff inhalation BID 08/28/22 [History Last Taken Unknown] Allergy/AdvReac Type Severity Reaction Status Date / Time No Known Allergies Allergy Verified 08/28/22 10:42 Surgical History H/O lumbosacral spine surgery H/O total hysterectomy History of bilateral knee replacement History of cholecystectomy History of cholecystectomy History of hysterectomy History of lumbar laminectomy History of right shoulder replacement History of right shoulder replacement Total knee replacement status Social History Smoking Status: Never smoker Vital Signs Vital Signs Vital Signs: 09/11/22 10:34 Temperature 97.1 F L Temperature Source Temporal Pulse Rate 60 Respiratory Rate 18 Blood Pressure 174/57 H Blood Pressure Mean 96 Blood Pressure Source Monitor Blood Pressure Position Sitting Blood Pressure Location Left Arm Oxygen Delivery Method Room Air Weight Weight: 290 lb Body Mass Index (BMI) 58.6 Physical Exam Const alert, oriented x3, no apparent distress and well nourished Constitutional Narrative: The patient is morbidly obese. General Appearance: cooperative, comfortable, well kempt and well developed Orientation / Consciousness: awake, oriented to person, oriented to place and oriented to time HEENT normocephalic and head/scalp atraumatic Head and Scalp: normal to inspection, normocephalic and atraumatic External Ear: external ears normal Eyes PERRL and EOMs intact bilaterally General Eye: normal appearance of both eyes Resp normal respiratory effort, normal air movement, no retractions and no use of accessory muscles Effort and Inspection: able to speak in complete sentences and symmetric chest movement Extremity no calf tenderness General Extremity: Negative for clubbing or cyanosis Skin Wound Narrative: Moderate swelling and edema are noted in the patient's lower extremities bilaterally. Despite the swelling and edema, there are no significant skin changes, open wounds, or ulcerations. The skin in the lower extremities is intact, and relatively normal in appearance. The degree of swelling appears to be slightly diminished bilaterally. Neuro oriented x3, CN's II-XII intact bilaterally, moves all extremities and no focal motor deficits Sensorium / Orientation: awake, alert, oriented to person, oriented to place and oriented to time Psych Appearance: grossly normal and appropriate Attitude: calm Activity / Motor Behavior: appropriate eye contact Speech: normal speech Mood & Affect: euthymic mood Thought Process: normal thought process Thought Content: normal thought content Attention / Concentration: attention grossly intact Debridement Note Debridement Note No debridement was completed: No debridement was completed today (There are no open wounds or ulcerations.) Post-Debridement Measurements and Additional Note: Post-Debridement Measurements/Treatment - Nurse 1 - General Ulcer Assessment Start: 08/28/22 09:57 Freq: Status: Active Protocol: MONICO Activity Type Activity Date Activity User E-sign Co-sign Detail Recorded Client Recorded Date Recorded By Document 08/28/22 09:59 MW [id number] 08/28/22 10:14 MW Document 09/11/22 10:34 [id number] 09/11/22 10:38 MW 08/28/22 09/11/22 09:59 10:34 - Today's Visit Information Type of service Initial Visit Follow-up Visit (Physician/CUSTOMER MARKETING MANAGER ) Arrival Mode Wheelchair Wheelchair Transfer Assistance None None Accompanied by self self Patient Identification Verified (Name & Yes Yes ) Patient Requires Transmission-Based No No Precautions Safety Precautions Fall Prevention Height and Weight Height 4 ft 11 in Weight 290 lb Weight in Pounds 290.0 lbs Weight Measurement Method Stated by Patient Body Mass Index (BMI) 58.6 58.6 BMI Classification Obese Obese BSA - Candido 2.16 Vital Signs Temperature (97.8 F-99.1 F) 97.5 F L 97.1 F L Temperature Source Temporal Temporal Pulse Rate (60-100) 56 L 60 Pulse Location Monitor Monitor Respiratory Rate (12-18) 18 18 Respiratory rate source Observation Observation Oxygen Delivery Method Room Air Room Air Blood Pressure (90/60-120/80) 155/55 H 174/57 H Blood Pressure Mean 88 96 Source Monitor Monitor Position Sitting Sitting Blood Pressure Location Right Forearm Left Arm History Since Last Visit- (Skip if this is Patient's initial visit) Have you changed medications since your No last visit? Any new allergies or adverse reactions No Had a fall/change in ADL's that may No increase risk of falls Signs or symptoms of abuse and/or No neglect since last visit Have you been in the hospital since your No last visit? Has compression in place as prescribed No Has offloadiing in place as prescribed N/A Experienced any changes in pain level or No management Left Footwear Regular Shoe Regular Shoe Right Footwear Regular Shoe Regular Shoe Pain Scale: 0-10 Numeric Is Patient Pain Free? Yes Yes Lower Extremity Assessment/ Foot Assessment/ Toe Nail Assessment Right -Posterior Tibial Palpable No -Posterior Tibial Doppler Monophasic -Dorsalis Pedis Palpable Yes -Dorsalis Pedis Doppler Monophasic -Extremity Color Normal -Hair Growth on Legs No -Hair Growth on Toes No -Temperature of Extremity Warm -Capillary Refill Less than 3 Seconds -Dependent Rubor No -Blanched when Elevated No -Lipodermatosclerosis No -Other Deformity No -Prior Foot Ulcer No -Charcot Joint No -Prior Amputation No -Thick Yes -Discolored No -Deformed No -Improper Length & Hygeine No Left -Popliteal Doppler Monophasic -Posterior Tibial Palpable No -Posterior Tibial Doppler Monophasic -Dorsalis Pedis Palpable Yes -Extremity Color Normal -Hair Growth on Legs No -Hair Growth on Toes No -Temperature of Extremity Warm -Capillary Refill Greater than 3 Seconds -Dependent Rubor No -Blanched when Elevated No -Lipodermatosclerosis No -Other Deformity No -Prior Foot Ulcer No -Charcot Joint No -Prior Amputation No -Thick Yes -Discolored No -Deformed No -Improper Length & Hygeine No Neuropathy Assessment Feet - Top Side and Bottom <Entered> (a) Communication Assessment Preferred language Slovak Button Tufter Required No Able to Read Yes Able to Write Yes Communication Tools None Caregiver Communication Skills No Impairment Impairment Right Hearing Abillity Normal Left Hearing Abillity Normal Visual Assistive Devices Glasses Teaching Assessment Preferences Verbal,Written, Audio/Visual, Demonstration Barriers to Learning None Readiness To Learn Excellent Willingness to Engage in Self Management High Activies Readiness to Engage in Self Management High Activities Anxiety Level Calm Cooperation Cooperative Perception Coherent Interest in Health Problem Asks Questions Education Importance Acknowledges Need Does Patient Smoke tobacco or other Yes substances Smoking Status Never smoker Is Patient Diabetic Yes Functional Assessment Recent Decline in Ability to Perform Denies Any Declines Assistive Device With Patient wheelchair Culture/Gnosticist/Printed Circuit Boards Inspector Cultural/Gnosticist Needs that may affect Yes Treatment Plan Would you allow our hospital offset proof press operator to Yes meet you for the purpose of spiritual/ emotional support? Printed Circuit Boards Inspector to contact place of baptist Yes Teaching: Wound Center *Welcome to the Wound Center -Person Taught Patient -Teaching Method Discussion -Response to teaching Verbalize understanding (a) 1 - + WC - Nurse 1 - General Ulcer Measurement Start: 08/28/22 09:57 Freq: Status: Active Protocol: Activity Type Activity Date Activity User E-sign Co-sign Detail Recorded Client Recorded Date Recorded By Document 08/28/22 09:59 MW [id number] 08/28/22 10:14 MW Document 09/11/22 10:34 MW [id number] 09/11/22 10:38 MW 08/28/22 09/11/22 09:59 10:34 Wound Center Nurse 1 Lower Limb Edema Present Yes Yes Right Calf (cm) 54.0 53.3 Right Ankle (cm) 28.0 27.5 Left Calf (cm) 52.0 Left Ankle (cm) 51.5 28.3 Left Foot (cm) 29.2 WC - Nurse 3 - General Ulcer D/C NN Start: 08/28/22 09:57 Freq: Status: Active Protocol: Activity Type Activity Date Activity User E-sign Co-sign Detail Recorded Client Recorded Date Recorded By Document 09/11/22 11:15 [facility] [id number] 09/11/22 11:15 [facility] 09/11/22 11:15 Wound Care Center Nurse 3 BLE -Multi-Layered Wrap Application Multi-Layer Comp - Bilat ($ ) -Other PER KW CUSHION BUILDER Treatment Response Procedure Tolerated Well Pain Scale: 0-10 Numeric Is Patient Pain Free? Yes WC - Visit Discharge Discharge Condition Stable Ambulatory Status Ambulatory Transportation Private Auto Assessment/Plan Assessment/Plan (1) Swelling of right lower extremity: CODE(S): M79.89 - Other specified soft tissue disorders (2) Swelling of left lower extremity: CODE(S): M79.89 - Other specified soft tissue disorders (3) Edema of both legs: CODE(S): R60.0 - Localized edema (4) Asthma: CODE(S): J45.909 - Unspecified asthma, uncomplicated QUALIFIERS: Asthma severity: moderate Asthma persistence: persistent Asthma complication type: uncomplicated Qualified Code(s): J45.40 - Moderate persistent asthma, uncomplicated (5) History of cerebrovascular accident: CODE(S): Z86.73 - Personal history of transient ischemic attack (TIA), and cerebral infarction without residual deficits (6) Hypertension: CODE(S): I10 - Essential (primary) hypertension QUALIFIERS: Hypertension type: essential hypertension (7) Morbid obesity with BMI of 50.0-59.9, adult: CODE(S): E66.01 - Morbid (severe) obesity due to excess calories; Z68.43 - Body mass index [BMI] 50.0-59.9, adult (8) Fibromyalgia: CODE(S): M79.7 - Fibromyalgia (9) IBS (irritable bowel syndrome): CODE(S): K58.9 - Irritable bowel syndrome without diarrhea QUALIFIERS: Irritable bowel syndrome type: unspecified Qualified Code(s): K58.9 - Irritable bowel syndrome without diarrhea (10) Rheumatoid arthritis: CODE(S): M06.9 - Rheumatoid arthritis, unspecified QUALIFIERS: Rheumatoid arthritis location: unspecified site Rheumatoid factor presence: unspecified presence Qualified Code(s): M06.9 - Rheumatoid arthritis, unspecified (11) Type 2 diabetes mellitus: CODE(S): E11.9 - Type 2 diabetes mellitus without complications (12) GERD (gastroesophageal reflux disease): CODE(S): K21.9 - Gastro-esophageal reflux disease without esophagitis QUALIFIERS: Esophagitis presence: esophagitis presence not specified Qualified Code(s): K21.9 - Gastro-esophageal reflux disease without esophagitis (13) Chronic low back pain: CODE(S): M54.5 - Low back pain; G89.29 - Other chronic pain QUALIFIERS: Back pain laterality: unspecified Sciatica presence: unspecified whether sciatica present Qualified Code(s): M54.5 - Low back pain; G89.29 - Other chronic pain (14) Restless leg syndrome: CODE(S): G25.81 - Restless legs syndrome (15) Obstructive sleep apnea: CODE(S): G47.33 - Obstructive sleep apnea (adult) (pediatric) (16) Peripheral neuropathy: CODE(S): G62.9 - Polyneuropathy, unspecified QUALIFIERS: Peripheral neuropathy type: polyneuropathy, unspecified (17) Hypothyroidism: CODE(S): E03.9 - Hypothyroidism, unspecified QUALIFIERS: Hypothyroidism type: unspecified (18) History of lumbar laminectomy: CODE(S): Z98.890 - Other specified postprocedural states (19) History of hysterectomy: CODE(S): Z90.710 - Acquired absence of both cervix and uterus (20) History of cholecystectomy: CODE(S): Z90.49 - Acquired absence of other specified parts of digestive tract (21) History of right shoulder replacement: CODE(S): Z96.611 - Presence of right artificial shoulder joint (22) History of bilateral knee replacement: CODE(S): Z96.653 - Presence of artificial knee joint, bilateral PLAN: Plan This is a 76-year-old morbidly obese female who presents with swelling and edema in her lower extremities. She sleeps in a recliner. She is an active and does not ambulate liberally, requiring a walker for assistance. She sits for long periods each day while watching TV or knitting. As result of her routine habits, the patient has developed chronic swelling and edema in her lower extremities. Fortunately, there are no significant skin changes, wounds, or ulcerations. A lengthy discussion has been undertaken with the patient as to the appropriate measures to be implemented in an effort to minimize the amount of swelling and edema in her lower extremities. The patient has been encouraged to elevate her lower extremities to heart level, or higher. This is to be achieved during sleeping and waking hours. Prolonged idle sitting has been discouraged. Activity has been encouraged, though the patient's physical impediments will likely deter her from enhancing her activity level to any significant degree. Weight loss has been recommended. She has been encouraged to collaborate with her primary care physician to discuss weight loss options. Despite the aforementioned instructions, the patient has been somewhat noncompliant with these recommendations. She is not elevating her lower extremities as advised. Furthermore, she has stopped applying the SurePress compression wraps on a daily basis, claiming that she had a reaction. She describes redness which is visible on her leg at the margins of the wraps, attributing this to an allergic reaction or contact dermatitis. However, it is not certain whether this is a normal sequela, or an allergic event. Nonetheless, we are to transition to the use of a 3M 2 layer compression wrap, which will be applied to each lower extremity, and changed twice weekly by nursing staff. The goal is to minimize the swelling and edema in the patient's lower extremities to a baseline level, following which graduated compression stockings or CircAid garments will be implemented. The patient may require custom-fitted stockings. Additionally, pneumatic mechanical compression pumps may also be of benefit, and will be considered in the future. The patient is to return in 1 week for reassessment. Total time: 25 minutes
[2022-09-18 10:22] VITALS: BP 174/56; PULSE 70; RESP 18; TEMP 35.9; BMI 58.6
== END 2022-09-19 23:59 | disposition home or self-care (01) ==
LOC: WC 10:15
PROVIDERS: PCP Nurse Practitioner Family; Referring Provider Surgery; Visit Provider Surgery
DX: M79.89 Other specified soft tissue disorders (principal); M06.9 Rheumatoid arthritis, unspecified; E11.42 Type 2 diabetes mellitus with diabetic polyneuropathy; E66.01 Morbid (severe) obesity due to excess calories; G47.33 Obstructive sleep apnea (adult) (pediatric); R60.0 Localized edema; G25.81 Restless legs syndrome; R53.1 Weakness; Z90.710 Acquired absence of both cervix and uterus; M54.40 Lumbago with sciatica, unspecified side; I10 Essential (primary) hypertension; E03.9 Hypothyroidism, unspecified; Z79.84 Long term (current) use of oral hypoglycemic drugs; J45.40 Moderate persistent asthma, uncomplicated; M79.7 Fibromyalgia; K21.9 Gastro-esophageal reflux disease without esophagitis; K58.9 Irritable bowel syndrome, unspecified; Z86.73 Personal history of transient ischemic attack (TIA), and cerebral infarction without residual deficits; Z98.890 Other specified postprocedural states; Z90.49 Acquired absence of other specified parts of digestive tract; Z96.611 Presence of right artificial shoulder joint; Z96.653 Presence of artificial knee joint, bilateral
CPT/HCPCS: 29581; 99213; G0463

== ENCOUNTER 2022-09-25 10:15 | Outpatient (RCR) | payer MEDICARE, SELFPAY ==
[2022-09-20 00:10] VITALS: BP 174/56; PULSE 70; RESP 18; TEMP 35.9; BMI 58.6
[2022-09-21 13:23] VITALS: BP 141/51; PULSE 55; TEMP 36.9; BMI 58.6
[2022-09-25 10:42] VITALS: BP 148/51; PULSE 51; RESP 20; TEMP 35.7; BMI 58.6
--- NOTE | 2022-09-25 12:44 | HP.PCM_ITS ---
History of Present Illness Date of Service: 09/25/22 Chief Complaint: Lower extremity swelling and edema (bilateral) History of Wound: This is a 76-year-old female who presented with swelling and edema in her lower extremities bilaterally. The patient stated her reason for evaluation is due to swelling in her legs. The swelling has been chronic in nature, more severe within the last several months. The patient is morbidly obese. She lives alone. She sleeps in a recliner. Activity is minimal. She requires the use of a walker for ambulation due to weakness, balance problems, and fear of falling. She sits most of each day, often engaging in watching TV or knitting. The patient denies a history of lower extremity thrombophlebitis. The patient underwent a venous duplex examination at [facility] [place] several months ago, which was negative for thrombophlebitis. Home health nursing aides assist the patient in her home approximately 4-5 days/week. The patient's BMI is 58.6. A noninvasive lower extremity arterial study was performed recently in the patient's primary care physician's office, with an CARLOS ENRIQUE of 0.67 on the left and 0.8 on the right. [facility] Medical History Asthma Chronic cough Chronic low back pain Depression Diabetes mellitus Edema of both legs Fibromyalgia GERD (gastroesophageal reflux disease) History of cerebrovascular accident Hypertension Hypothyroidism IBS (irritable bowel syndrome) Insomnia Lumbar spinal stenosis Morbid obesity Morbid obesity with BMI of 50.0-59.9, adult Obstructive sleep apnea Peripheral neuropathy Psoriatic arthritis Psoriatic arthritis Restless leg syndrome Rheumatoid arthritis Swelling of left lower extremity Swelling of right lower extremity Type 2 diabetes mellitus Home Medications Clonazepam 0.5 mg PO QHS PRN RESTLESS LEG 03/11/20 [History Last Taken Unknown] hydrocodone-acetaminophen 5-325mg 5mg-325mg 1 ea PO Q6H PRN Pain 1-10 Or Fever 03/11/20 [History Last Taken Unknown] metformin 500 mg tablet 500 mg PO DAILY 03/11/20 [History Last Taken Unknown] aspirin 325 mg tablet,delayed release 325 mg PO DAILY@0800 #30 tabs 03/13/20 [Rx Last Taken Unknown] atorvastatin 80 mg tablet 80 mg PO QHS #90 tabs 03/13/20 [Rx Last Taken Unknown] amlodipine 5 mg tablet (Norvasc) 5 mg PO DAILY 12/08/20 [History Last Taken Unknown] levothyroxine 50 mcg tablet (Synthroid) 50 mcg PO DAILY 12/08/20 [History Last Taken Unknown] pantoprazole 40 mg tablet,delayed release 40 mg PO DAILY 12/08/20 [History Last Taken Unknown] atenolol 50 mg tablet 50 mg PO BID 06/07/21 [History Last Taken Unknown] hydrochlorothiazide 25 mg tablet 25 mg PO DAILY 06/07/21 [History Last Taken Unknown] gabapentin 400 mg capsule 800 mg PO BID 08/25/21 [History Last Taken Unknown] losartan 50 mg tablet 100 mg PO DAILY 09/29/21 [History Last Taken Unknown] pentoxifylline 400 mg tablet,extended release 400 mg PO DAILY 09/29/21 [History Last Taken Unknown] albuterol sulfate 90 mcg/actuation aerosol inhaler (Ventolin HFA) 2 puff inhalation Q4H PRN PRN Shortness Of Breath 08/28/22 [History Last Taken Unknown] budesonide-formoterol HFA 160 mcg-4.5 mcg/actuation aerosol inhaler (Symbicort) 1 puff inhalation BID 08/28/22 [History Last Taken Unknown] Allergy/AdvReac Type Severity Reaction Status Date / Time No Known Allergies Allergy Verified 08/28/22 10:42 Surgical History H/O lumbosacral spine surgery H/O total hysterectomy History of bilateral knee replacement History of cholecystectomy History of cholecystectomy History of hysterectomy History of lumbar laminectomy History of right shoulder replacement History of right shoulder replacement Total knee replacement status Social History Smoking Status: Never smoker Vital Signs Vital Signs Vital Signs: 09/25/22 10:42 Temperature 96.2 F L Temperature Source Temporal Pulse Rate 51 L Respiratory Rate 20 H Blood Pressure 148/51 H Blood Pressure Mean 83 Blood Pressure Source Monitor Blood Pressure Position Supine Blood Pressure Location Right Forearm Oxygen Delivery Method Room Air Weight Weight: 290 lb Body Mass Index (BMI) 58.6 Physical Exam Const alert, oriented x3, no apparent distress and well nourished Constitutional Narrative: The patient is morbidly obese. General Appearance: cooperative, comfortable, well kempt and well developed Orientation / Consciousness: awake, oriented to person, oriented to place and oriented to time HEENT normocephalic and head/scalp atraumatic Head and Scalp: normal to inspection, normocephalic and atraumatic External Ear: external ears normal Eyes PERRL and EOMs intact bilaterally General Eye: normal appearance of both eyes Resp normal respiratory effort, normal air movement, no retractions and no use of accessory muscles Effort and Inspection: able to speak in complete sentences and symmetric chest movement Extremity no calf tenderness General Extremity: Negative for clubbing or cyanosis Skin Wound Narrative: The swelling and edema in the patient's lower extremities is now essentially resolved. There are no significant skin changes, open wounds, or ulcerations. The skin in the lower extremities is intact, and relatively normal in appearance. There is no sign of infection or cellulitis. Neuro oriented x3, CN's II-XII intact bilaterally, moves all extremities and no focal motor deficits Sensorium / Orientation: awake, alert, oriented to person, oriented to place and oriented to time Psych Appearance: grossly normal and appropriate Attitude: calm Activity / Motor Behavior: appropriate eye contact Speech: normal speech Mood & Affect: euthymic mood Thought Process: normal thought process Thought Content: normal thought content Attention / Concentration: attention grossly intact Debridement Note Debridement Note No debridement was completed: No debridement was completed today (There are no open wounds or ulcerations.) Post-Debridement Measurements and Additional Note: Post-Debridement Measurements/Treatment - Nurse 1 - General Ulcer Assessment Start: 09/21/22 13:22 Freq: Status: Active Protocol: [email or web address] Activity Type Activity Date Activity User E-sign Co-sign Detail Recorded Client Recorded Date Recorded By Document 09/21/22 13:23 MA [id number] 09/21/22 13:24 AK Document 09/25/22 10:42 MW [id number] 09/25/22 10:44 MW 09/21/22 09/25/22 13:23 10:42 - Today's Visit Information Type of service Nurse-only Follow-up Visit Visit (Physician/NEUROSURGERY SPINE PHYSICIAN ) Arrival Mode Wheelchair Wheelchair Transfer Assistance Manual Accompanied by self Patient Identification Verified (Name & Yes Yes ) Patient Requires Transmission-Based No Precautions Height and Weight Body Mass Index (BMI) 58.6 58.6 BMI Classification Obese Obese Vital Signs Temperature (97.8 F-99.1 F) 98.5 F 96.2 F L Temperature Source Temporal Temporal Pulse Rate (60-100) 55 L 51 L Pulse Location Monitor Monitor Respiratory Rate (12-18) 20 H Respiratory rate source Ausculation Oxygen Delivery Method Room Air Blood Pressure (90/60-120/80) 141/51 H 148/51 H Blood Pressure Mean 81 83 Source Monitor Monitor Position Supine Blood Pressure Location Right Forearm History Since Last Visit- (Skip if this is Patient's initial visit) Have you changed medications since your No No last visit? Any new allergies or adverse reactions No No Had a fall/change in ADL's that may No No increase risk of falls Signs or symptoms of abuse and/or No No neglect since last visit Have you been in the hospital since your No No last visit? Has dressing in place as prescribed Yes Yes Has compression in place as prescribed Yes Yes Has offloadiing in place as prescribed N/A N/A Experienced any changes in pain level or No No management Left Footwear Regular Shoe Regular Shoe Right Footwear Regular Shoe Regular Shoe Pain Scale: 0-10 Numeric Is Patient Pain Free? Yes Yes - Nurse 1 - General Ulcer Measurement Start: 09/21/22 13:22 Freq: Status: Active Protocol: Activity Type Activity Date Activity User E-sign Co-sign Detail Recorded Client Recorded Date Recorded By Document 09/25/22 10:42 MW [id number] 09/25/22 10:44 MW 09/25/22 10:42 Wound Center Nurse 1 Lower Limb Edema Present Yes Right Calf (cm) 50.6 Right Ankle (cm) 23.5 Left Calf (cm) 45.8 Left Ankle (cm) 24.0 - Nurse 2 - General Ulcer CM Notes Start: 09/21/22 13:22 Freq: Status: Active Protocol: Activity Type Activity Date Activity User E-sign Co-sign Detail Recorded Client Recorded Date Recorded By Document 09/25/22 12:07 PL [id number] 09/25/22 12:08 PL 09/25/22 12:07 Pain Scale: 0-10 Numeric Is Patient Pain Free? Yes - Nurse 3 - General Ulcer D/C NN Start: 09/21/22 13:22 Freq: Status: Active Protocol: Activity Type Activity Date Activity User E-sign Co-sign Detail Recorded Client Recorded Date Recorded By Document 09/21/22 13:23 AK [id number] 09/21/22 13:24 AK Edit Result 09/21/22 13:23 AK (1) [id number] 09/24/22 07:37 PL (1) Bilateral - Multi-Layered Wrap Application => Multi-Layer Comp - => Bilat ($) 09/21/22 13:23 Vital Signs Temperature (97.8 F-99.1 F) 98.5 F Temperature Source Temporal Pulse Rate (60-100) 55 L Pulse Location Monitor Blood Pressure (90/60-120/80) 141/51 H Blood Pressure Mean 81 Source Monitor Pain Scale: 0-10 Numeric Is Patient Pain Free? Yes Wound Care Center Nurse 3 Bilateral -Multi-Layered Wrap Application Multi-Layer Comp - Bilat ($ ) WC - Visit Discharge Discharge Condition Stable Ambulatory Status Wheelchair Transportation Private Auto Accompanied by [employer] Medication Reconcilliation completed & Yes provided to patient/care provider Clinical Summary of Care Provided Yes Assessment/Plan Assessment/Plan (1) Swelling of right lower extremity: CODE(S): M79.89 - Other specified soft tissue disorders (2) Swelling of left lower extremity: CODE(S): M79.89 - Other specified soft tissue disorders (3) Edema of both legs: CODE(S): R60.0 - Localized edema (4) Asthma: CODE(S): J45.909 - Unspecified asthma, uncomplicated QUALIFIERS: Asthma severity: moderate Asthma persistence: persistent Asthma complication type: uncomplicated Qualified Code(s): J45.40 - Moderate persistent asthma, uncomplicated (5) History of cerebrovascular accident: CODE(S): Z86.73 - Personal history of transient ischemic attack (TIA), and cerebral infarction without residual deficits (6) Hypertension: CODE(S): I10 - Essential (primary) hypertension QUALIFIERS: Hypertension type: essential hypertension (7) Morbid obesity with BMI of 50.0-59.9, adult: CODE(S): E66.01 - Morbid (severe) obesity due to excess calories; Z68.43 - Body mass index [BMI] 50.0-59.9, adult (8) Fibromyalgia: CODE(S): M79.7 - Fibromyalgia (9) IBS (irritable bowel syndrome): CODE(S): K58.9 - Irritable bowel syndrome without diarrhea QUALIFIERS: Irritable bowel syndrome type: unspecified Qualified Code(s): K58.9 - Irritable bowel syndrome without diarrhea (10) Rheumatoid arthritis: CODE(S): M06.9 - Rheumatoid arthritis, unspecified QUALIFIERS: Rheumatoid arthritis location: unspecified site Rheumatoid factor presence: unspecified presence Qualified Code(s): M06.9 - Rheumatoid arthritis, unspecified (11) Type 2 diabetes mellitus: CODE(S): E11.9 - Type 2 diabetes mellitus without complications (12) GERD (gastroesophageal reflux disease): CODE(S): K21.9 - Gastro-esophageal reflux disease without esophagitis QUALIFIERS: Esophagitis presence: esophagitis presence not specified Qualified Code(s): K21.9 - Gastro-esophageal reflux disease without esophagitis (13) Chronic low back pain: CODE(S): M54.5 - Low back pain; G89.29 - Other chronic pain QUALIFIERS: Back pain laterality: unspecified Sciatica presence: unspecified whether sciatica present Qualified Code(s): M54.5 - Low back pain; G89.29 - Other chronic pain (14) Restless leg syndrome: CODE(S): G25.81 - Restless legs syndrome (15) Obstructive sleep apnea: CODE(S): G47.33 - Obstructive sleep apnea (adult) (pediatric) (16) Peripheral neuropathy: CODE(S): G62.9 - Polyneuropathy, unspecified QUALIFIERS: Peripheral neuropathy type: polyneuropathy, unspecified (17) Hypothyroidism: CODE(S): E03.9 - Hypothyroidism, unspecified QUALIFIERS: Hypothyroidism type: unspecified (18) History of lumbar laminectomy: CODE(S): Z98.890 - Other specified postprocedural states (19) History of hysterectomy: CODE(S): Z90.710 - Acquired absence of both cervix and uterus (20) History of cholecystectomy: CODE(S): Z90.49 - Acquired absence of other specified parts of digestive tract (21) History of right shoulder replacement: CODE(S): Z96.611 - Presence of right artificial shoulder joint (22) History of bilateral knee replacement: CODE(S): Z96.653 - Presence of artificial knee joint, bilateral PLAN: Plan This is a 76-year-old morbidly obese female who presented with swelling and edema in her lower extremities. She sleeps in a recliner. She is not active and does not ambulate liberally, requiring a walker for assistance. She sits for long periods each day while watching TV or knitting. As result of her routine habits, the patient has developed chronic swelling and edema in her lower extremities. Fortunately, there are no significant skin changes, wounds, or ulcerations. A lengthy discussion has again been undertaken with the patient as to the appropriate measures to be implemented in an effort to minimize the amount of swelling and edema in her lower extremities. The patient has been encouraged to elevate her lower extremities to heart level, or higher. This is to be achieved during sleeping and waking hours. Prolonged idle sitting has been discouraged. Activity has been encouraged, though the patient's physical impediments will likely deter her from enhancing her activity level to any significant degree. Weight loss has been recommended. She has been encouraged to collaborate with her primary care physician to discuss weight loss options. There has been significant improvement in the last 2 weeks, since the implementation of 3M, 2 layer compression wraps, which have been changed twice weekly. Upon evaluation today, the swelling and edema in the patient's lower extremities is now minimal. We have undertaken a lengthy discussion of the options of management subsequently. We have discussed options regarding compression to the patient's lower extremities. We have discussed the use of traditional graduated compression stockings of 20 to 30 mmHg compression. The patient feels confident that she will be unable to don the stockings, despite the use of a donning device. She is in possession of a donning device, but indicates that she is unlikely to have the ability to don compression stockings of 20 to 30 mmHg compression. We have also discussed the use of Velcro CircAid compression garments. In addition, we have discussed the option of donning a dual pair of compression stockings which are of 10 to 15 mmHg compression. The combined compression of a double pair of such stockings will achieve the desired degree of compression. Based upon thorough discussion, the patient has elected to pursue a dual pair of compression stockings of 10 to 15 mmHg compression, anticipating that she will use her donning device to apply the stockings each day. She understands the other measures which are important and long-term management, including leg elevation, avoidance of idle sitting, weight loss, activity as tolerated, etc. The patient is to be discharged, and will follow-up henceforth on an as-needed basis. If recommended measures are insufficient, the patient may benefit from pneumatic mechanical compression pumps in the future. For now, however, the patient is to be discharged. Total time: 26 minutes
== END 2022-09-25 14:09 | disposition home or self-care (01) ==
LOC: WC 10:15
PROVIDERS: PCP Nurse Practitioner Family; Referring Provider Surgery; Visit Provider Surgery
DX: M79.89 Other specified soft tissue disorders (principal); M05.9 Rheumatoid arthritis with rheumatoid factor, unspecified; M06.9 Rheumatoid arthritis, unspecified; E11.42 Type 2 diabetes mellitus with diabetic polyneuropathy; E66.01 Morbid (severe) obesity due to excess calories; R60.0 Localized edema; G25.81 Restless legs syndrome; I10 Essential (primary) hypertension; G47.33 Obstructive sleep apnea (adult) (pediatric); Z90.710 Acquired absence of both cervix and uterus; R53.1 Weakness; K58.9 Irritable bowel syndrome, unspecified; M54.40 Lumbago with sciatica, unspecified side; E03.9 Hypothyroidism, unspecified; M79.7 Fibromyalgia; K21.9 Gastro-esophageal reflux disease without esophagitis; J45.40 Moderate persistent asthma, uncomplicated; Z79.84 Long term (current) use of oral hypoglycemic drugs; Z86.73 Personal history of transient ischemic attack (TIA), and cerebral infarction without residual deficits; Z96.653 Presence of artificial knee joint, bilateral; Z96.611 Presence of right artificial shoulder joint; Z90.79 Acquired absence of other genital organ(s); Z98.890 Other specified postprocedural states; G89.29 Other chronic pain
CPT/HCPCS: 29581; 99213; G0463

== ENCOUNTER → 2022-10-11 | Outpatient (CLI) | payer MEDICARE, SELFPAY ==
--- NOTE | 2022-10-11 09:44 | BI_ITS ---
MAMMOGRAPHY - BILATERAL SCREENING REASON FOR EXAM: Female, 76 years old. Routine annual screening examination. PERTINENT HISTORY: No reported personal or family history of breast cancer. Right excisional breast biopsy 10-11 years prior. TECHNIQUE: Digital bilateral breast darryl (3D mammographic acquisition) in the CC and MLO projections. 2-D mediolateral oblique (MLO) and craniocaudad (CC) views of both breasts were obtained. CAD: Full Field Digital Mammography with Computer Added Detection was performed. COMPARISON: Mammogram from 09/26/2021, 90 07/09/2018. FINDINGS: Breast Composition: There are scattered areas of fibroglandular density. Finding 1: There are grouped microcalcifications in the right upper outer breast, middle depth, approximately 5.5 cm posterior to the nipple which appear slightly more conspicuous since prior study. Further assessment with magnification views is recommended. Finding 2: There are grouped punctate round microcalcifications in the left retroareolar breast, posterior depth, approximately 7 cm posterior to the nipple. These are only seen on the cc views and not localized on the MLO views. These may be on the skin surface, however, given grouped appearance, further assessment with true lateral and magnification views is recommended. No other significant abnormalities are identified. BI/SCRN MAMM (CAD)W/DARRYL BILAT IMPRESSION: Further imaging evaluation recommended, as described above. (E) Recall Side: Both Breasts ASSESSMENT CATEGORY: BIRADS Category 0: Incomplete. Need additional imaging evaluation. A letter regarding these results will be sent to the patient by the facility within 30 days. Approximately 10% of breast cancers are not detected by mammography. A normal mammogram should not delay biopsy of a clinically suspicious abnormality. Electronically Signed: Madhav Galeas DO at 8:52 EDT ,
== END | disposition home or self-care (01) ==
LOC: OPBI 09:44
PROVIDERS: PCP Nurse Practitioner Family; Referring Provider Nurse Practitioner Family; Visit Provider Nurse Practitioner Family
DX: Z12.31 Encounter for screening mammogram for malignant neoplasm of breast (principal)
CPT/HCPCS: 77063; 77067

== ENCOUNTER → 2022-10-18 | Outpatient (CLI) | payer MEDICARE, SELFPAY ==
--- NOTE | 2022-10-18 08:55 | BI_ITS ---
MAMMOGRAPHY - BILATERAL DIAGNOSTIC REASON FOR EXAM: Female, 76 years old. Abnormal screening mammogram. PERTINENT HISTORY: Non-contributory. TECHNIQUE: Magnification spot views of both breasts were obtained. CAD: Full Field Digital Mammography with Computer Added Detection was performed. COMPARISON: Comparison is made with prior study October 11, 2022. FINDINGS: Breast Composition: There are scattered areas of fibroglandular density. A cluster microcalcification is seen in the upper outer aspect of the right breast. Biopsy recommended. Left breast is unremarkable. No other significant abnormalities are identified. BI/DIAG MAMM W/CAD, BILAT IMPRESSION: Clustered microcalcification in the upper-outer quadrant of right breast is visualized. Biopsy recommended. Additional views of the left breast does not demonstrate any abnormality. ASSESSMENT CATEGORY: BIRADS Category 4: Suspicious - Biopsy Should Be Considered. A letter regarding these results will be sent to the patient by the facility within 30 days. Approximately 10% of breast cancers are not detected by mammography. A normal mammogram should not delay biopsy of a clinically suspicious abnormality. Electronically Signed: Roe Sy MD at 10:14 EDT ,
== END | disposition home or self-care (01) ==
LOC: OPUS 08:54
PROVIDERS: PCP Nurse Practitioner Family; Referring Provider Nurse Practitioner Family; Visit Provider Nurse Practitioner Family
DX: R92.0 Mammographic microcalcification found on diagnostic imaging of breast (principal)
CPT/HCPCS: 77066

== ENCOUNTER → 2022-10-29 | Outpatient (CLI) | payer MEDICARE, SELFPAY ==
--- NOTE | 2022-10-29 10:38 | HP.PCM_ITS ---
History and Physical Date of Admission: 10/29/22 Chief Complaint: abn mammo right [employer] Photographs Required: No Is patient in pain?: No Allergies No Known Allergies Allergy (Verified 10/24/22 12:47) Medications Clonazepam 0.5 mg PO QHS PRN RESTLESS LEG 03/11/20 [History Confirmed 10/24/22] hydrocodone-acetaminophen 5-325mg 5mg-325mg 1 ea PO Q6H PRN Pain 1-10 Or Fever 03/11/20 [History Confirmed 10/24/22] metformin 500 mg tablet 500 mg PO DAILY 03/11/20 [History Confirmed 10/24/22] aspirin 325 mg tablet,delayed release 325 mg PO DAILY@0800 #30 tabs 03/13/20 [Rx Confirmed 10/24/22] atorvastatin 80 mg tablet 80 mg PO QHS #90 tabs 03/13/20 [Rx Confirmed 10/24/22] amlodipine 5 mg tablet (Norvasc) 5 mg PO DAILY 12/08/20 [History Confirmed 10/24/22] levothyroxine 50 mcg tablet (Synthroid) 50 mcg PO DAILY 12/08/20 [History Confirmed 10/24/22] pantoprazole 40 mg tablet,delayed release 40 mg PO DAILY 12/08/20 [History Confirmed 10/24/22] atenolol 50 mg tablet 50 mg PO BID 06/07/21 [History Confirmed 10/24/22] hydrochlorothiazide 25 mg tablet 25 mg PO DAILY 06/07/21 [History Confirmed 10/24/22] gabapentin 400 mg capsule 800 mg PO BID 08/25/21 [History Confirmed 10/24/22] losartan 50 mg tablet 100 mg PO DAILY 09/29/21 [History Confirmed 10/24/22] pentoxifylline 400 mg tablet,extended release 400 mg PO DAILY 09/29/21 [History Confirmed 10/24/22] albuterol sulfate 90 mcg/actuation aerosol inhaler (Ventolin HFA) 2 puff inhalation Q4H PRN PRN Shortness Of Breath 08/28/22 [History Confirmed 10/24/22] budesonide-formoterol HFA 160 mcg-4.5 mcg/actuation aerosol inhaler (Symbicort) 1 puff inhalation BID 08/28/22 [History Confirmed 10/24/22] Is last menstrual period known: No Post menopausal: Yes Patient : No PFS Medical History (Updated 10/24/22 @ 12:48 by Linda Savage) Asthma Chronic cough Chronic low back pain Depression Edema of both legs Fibromyalgia GERD (gastroesophageal reflux disease) History of cerebrovascular accident Hypertension Hypothyroidism IBS (irritable bowel syndrome) Insomnia Lumbar spinal stenosis Morbid obesity with BMI of 50.0-59.9, adult Obstructive sleep apnea Peripheral neuropathy Psoriatic arthritis Restless leg syndrome Rheumatoid arthritis Type 2 diabetes mellitus Surgical History H/O lumbosacral spine surgery H/O total hysterectomy History of bilateral knee replacement History of cholecystectomy History of cholecystectomy History of hysterectomy History of lumbar laminectomy History of right shoulder replacement History of right shoulder replacement Total knee replacement status Social History Smoking Status: Never smoker HPI HPI HPI: 76-year-old female is being referred by MONICA Brennan for surgical consultation regarding an abnormal mammogram and a written compromise surgical consult recommendations will return to her. The patient is on multiple medications. This includes pentoxifylline and aspirin full dose. A0.. Medic at age 13. First child required when she was 21. She did not breast-feed. She states I assisted her with a remote right breast biopsy. Benign. Family history notable for an aunt a paternal grandmother had breast cancer. The patient at menopause was briefly on estrogen replacement therapy. She is not able to palpate any nodules but she does not do self breast exams Most pertinent primary medical issue is morbid obesity with a BMI of 59 and a body weight of 292 pounds On October 11, 2022 the patient had screening bilateral mammography. I have personally reviewed the films. There felt to be grouped microcalcifications upper outer right breast 5.5 cm posterior to the nipple. There felt to be microcalcifications left retroareolar breast 7 cm posterior. Subsequently on October 18, 2022 she had diagnostic bilateral mammography. I have personally reviewed these images. The area of clustered microcalcifications in the upper outer quadrant right breast are visualized BI-RADS Category 4 biopsy recommended. The additional views of the left breast did not demonstrate a focal abnormality. October 11, 2022 MAMMOGRAPHY - BILATERAL SCREENING REASON FOR EXAM: Female, 76 years old. Routine annual screening examination. PERTINENT HISTORY: No reported personal or family history of breast cancer. Right excisional breast biopsy 10-11 years prior. TECHNIQUE: Digital bilateral breast darryl (3D mammographic acquisition) in the CC and MLO projections. 2-D mediolateral oblique (MLO) and craniocaudad (CC) views of both breasts were obtained. CAD: Full Field Digital Mammography with Computer Added Detection was performed. COMPARISON: Mammogram from 09/26/2021, 90 07/09/2018. FINDINGS: Breast Composition: There are scattered areas of fibroglandular density. Finding 1: There are grouped microcalcifications in the right upper outer breast, middle depth, approximately 5.5 cm posterior to the nipple which appear slightly more conspicuous since prior study. Further assessment with magnification views is recommended. Finding 2: There are grouped punctate round microcalcifications in the left retroareolar breast, posterior depth, approximately 7 cm posterior to the nipple. These are only seen on the cc views and not localized on the MLO views. These may be on the skin surface, however, given grouped appearance, further assessment with true lateral and magnification views is recommended. No other significant abnormalities are identified. BI/SCRN MAMM (CAD)W/DARRYL BILAT IMPRESSION: Further imaging evaluation recommended, as described above. (E) Recall Side: Both Breasts ASSESSMENT CATEGORY: BIRADS Category 0: Incomplete. Need additional imaging evaluation. A letter regarding these results will be sent to the patient by the facility within 30 days. Approximately 10% of breast cancers are not detected by mammography. A normal mammogram should not delay biopsy of a clinically suspicious abnormality. Electronically Signed: Madhav Galeas DO at 8:52 EDT , October 18, 2022 MAMMOGRAPHY - BILATERAL DIAGNOSTIC REASON FOR EXAM: Female, 76 years old. Abnormal screening mammogram. PERTINENT HISTORY: Non-contributory. TECHNIQUE: Magnification spot views of both breasts were obtained. CAD: Full Field Digital Mammography with Computer Added Detection was performed. COMPARISON: Comparison is made with prior study October 11, 2022. FINDINGS: Breast Composition: There are scattered areas of fibroglandular density. A cluster microcalcification is seen in the upper outer aspect of the right breast. Biopsy recommended. Left breast is unremarkable. No other significant abnormalities are identified. BI/DIAG MAMM W/CAD, BILAT IMPRESSION: Clustered microcalcification in the upper-outer quadrant of right breast is visualized. Biopsy recommended. Additional views of the left breast does not demonstrate any abnormality. ASSESSMENT CATEGORY: BIRADS Category 4: Suspicious - Biopsy Should Be Considered. A letter regarding these results will be sent to the patient by the facility within 30 days. Approximately 10% of breast cancers are not detected by mammography. A normal mammogram should not delay biopsy of a clinically suspicious abnormality. Electronically Signed: Roe Sy MD at 10:14 EDT , ROS General General: Yes fatigue; No weight change, appetite, colon cancer, breast cancer or weakness HEENT HEENT: No difficulty swallowing, eye injury, eye surgery, swollen glands or hoarseness Endo Endocrine: Yes diabetes mellitus; No thyroid disease, thyroid cancer, Hair loss, heat intolerance or cold intolerance Breast Breast: Yes abnormal mammogram; No left breast lump, right breast lump, nipple discharge, breast pain, abnormal US or breast enlargement Musc Musculoskeletal: Yes back problems and arthritis; No rheumatoid arthritis, gout or joint pain Cardio Cardiovascular: Yes murmur and high blood pressure; No pacemaker, heart disease, atrial fibrillation, heart attack, heart stent, palpitations, shortness of breat with exertion or chest pain Psych Psychiatric: No depression, anxiety or hearing voices Resp Respiratory: Yes shortness of breath, Yes sleep apnea, No cough, Yes COPD, Yes asthma, No emphysema and No wheezing Gastro Gastrointestinal: No abdominal pain, Yes nausea or vomiting, No diarrhea, No constipation, No blood in stool, Yes acid reflux, No hemorrhoids, No ulcers, No gallbladder problem and No black,tarry stools Neuro Neurologic: No weakness Exam Const General: cooperative, comfortable and no acute distress Nutritional Appearance: obese morbidly obese Orientation: alert, awake and oriented x3 HENMT Head: normal to inspection Eyes General: appearance normal, both eyes and all related structures Neck Neck: normal visual inspection Chest Other: Bilateral breasts: Clinically difficult to examine. No nipple retraction. No nipple discharge. No gross axillary clavicular adenopathy. No focal masses appreciated Resp Effort & Inspection: normal respiratory effort Auscultation: clear to auscultation bilaterally Cardio Rate: regular rate Rhythm: regular rhythm Other: 1/6 soft ejection murmur GI Other: Notably overweight. I cannot detect any internal organs Skin General: no rashes or lesions noted Neuro General: patient alert, patient awake and patient oriented x3 Extrem Other: Bilateral extremity nonpitting edema with bilateral extremity compression hose in place Psych Appearance: grossly normal Assessment and Plan Assessment and Plan (1) Abnormal mammogram of right breast: Status: Acute Plan: Clustered microcalcifications upper outer quadrant right breast. I recommended the patient a stereotactic needle core biopsy and in detail discussed the technique, benefit, risk, alternatives. We will have her temporarily hold her 325 mg aspirin therapy. She has had an opportunity to ask and have questions answered. We will schedule procedure at her discretion. I appreciate the opportunity of assisting with her surgical care. Copy:RONDA BrennanC I have examined the patient and the H&P has been reviewed. There are no clinical changes since date of exam. Jossue Singleton M.D., F.A.C.S.
--- NOTE | 2022-10-29 11:00 | BRBX_PTH ---
PATIENT: DON GTZ LOC: [facility] U#:[id number] AGE/SX: 76/F ROOM: RE10/29/[address]: Dr. Jossue Singleton MD : 1945 BED: DIS: 10/29/2022 SPEC #: [id number] RECD: 10/29/22 11:40 STATUS: FERNY JIMENA #: [id number] TING: 10/29/22 11:[address]: Jossue Singleton DEPT: SURGICAL PATHOLOGY RECD BY: Violeta Torres ENTERED: 10/29/22 11:56 SP TYPE: BREAST BX OTHR DR: Rossana Gaytan, INSURANCE SALES [employer]ODUCER-[employer]ery Tissues: Right breast, NOS Procedures: Surgery Specimen Level IV HEADER OPERATION: Right breast stereo needle core biopsy PRE-OP DIAGNOSIS: Micro calcs right upper outer TISSUE SUBMITTED: Right breast needle core biopsy MICROSCOPIC DIAGNOSIS Right breast, stereotactic needle core biopsy: Intraductal hyperplasia with atypia with focal microcalcifications. See comment. JAYLEEN:10/30/2022 COMMENT A few of the ducts are completely replaced by calcifications. Correlation with clinical, radiologic findings and appropriate follow up are necessary. Case has been reviewed in consultation with Dr. Morrow who concurs with the above diagnosis. IDC:AM MICROSCOPIC DESCRIPTION Slides are reviewed. GROSS DESCRIPTION Received in fixative is one container labeled with the patient name and designated right breast, stereotactic needle biopsy. The specimen consists of multiple elongated fragments of soft tissue measuring in aggregate 3 x 2.5 x 0.2cm. The specimen is totally submitted in one cassette. / SJ: 10/29/22 TC:5 CPT:71903
--- NOTE | 2022-10-29 11:20 | OP.PCM_ITS ---
Report of Operation Date of Procedure: 10/29/22 Pre-Operative Diagnosis: Right mammogram with clustered microcalcifications upp er outer quadrant right breast Post-Operative Diagnosis: Same Surgery/Procedure Performed:: Stereotactic needle core biopsy upper outer quadrant right breast Description of Surgical Findings:: Timeout informed consent was obtained. 76-year-old female was placed prone on the stereotactic table. 3 person assist was required. Cc view was obtained. Microcalcifications in question were identified with the second set of imaging. Stereotactic images were obtained. Target on scalp was selected replacing which 2. The breast was prepped with Betadine. 1% lidocaine was used as a local anesthetic. A total of 18 cc was used. Local was instilled. A small stab incision was created. An 8 gauge resolved needle was advanced to prefire depth. Prefire films were obtained demonstrating adequate localization. Then subsequently device was fired and 6 cores were obtained. Specimen mammograms were obtained demonstrating adequate calcifications sampling. Mini marking clip was left at 12 o'clock position. She was released from the device and direct pressure was held for hemostasis. Steri-Strip Telfa OpSite dressing applied. She was given activity wound care instructions. The specimens had been immediately submitted in formalin for analysis. No apparent complication. Blood loss was minimal. She tolerated the procedure well. Jossue Singleton M.D., F.A.C.S. Surgeon: Jossue Singleton Type of Anesthesia: Local
== END | disposition home or self-care (01) ==
LOC: BIRAD 10:34
PROVIDERS: PCP Nurse Practitioner Family; Referring Provider Surgery; Visit Provider Surgery
DX: R92.8 Other abnormal and inconclusive findings on diagnostic imaging of breast (principal); E66.01 Morbid (severe) obesity due to excess calories; Z68.43 Body mass index [BMI] 50.0-59.9, adult; G47.33 Obstructive sleep apnea (adult) (pediatric); Z80.3 Family history of malignant neoplasm of breast; E03.9 Hypothyroidism, unspecified; I10 Essential (primary) hypertension; R92.0 Mammographic microcalcification found on diagnostic imaging of breast
CPT/HCPCS: 19081; 88305; J7050

== ENCOUNTER → 2023-09-03 | Outpatient (CLI) | payer MEDICARE, SELFPAY ==
--- NOTE | 2023-09-03 12:47 | CDU_ITS ---
Reason For Study: carotid stenosis Rt. Velocities/BP Lt. Velocities/BP Prox CCA 82.8/14.7 cm/sec. Prox CCA 87.6/15.1 cm/sec. Mid CCA 73.3/15.7 cm/sec. Mid CCA 74.0/18.8 cm/sec. Dist CCA 75.2/17.6 cm/sec. Dist CCA 59.3/12.6 cm/sec. Prox ICA 53.4/11.7 cm/sec. Prox ICA 54.4/15.1 cm/sec. Mid ICA 79.8/23.7 cm/sec. Mid ICA 65.4/12.6 cm/sec. Dist ICA 101.1/23.7 cm/sec. Dist ICA 44.6/12.6 cm/sec. Rt. ICA/CCA = 1.4. Lt. ICA/CCA = .9. Prox ECA 99.6/8.4 cm/sec. Prox ECA 75.3/10.2 cm/sec. Rt. Vert. 37.2/6.5 cm/sec. Lt. Vert. 49.5/12.6 cm/sec. Right Extracranial There is intimal thickening but no significant atherosclerotic plaque noted in the right common carotid artery. There is heterogeneous, irregular atherosclerotic plaque noted in the right internal carotid artery. There is intimal thickening but no significant atherosclerotic plaque noted in the right external carotid artery. Antegrade flow is noted in the right vertebral artery. Left Extracranial There is intimal thickening but no significant atherosclerotic plaque noted in the left common carotid artery. There is intimal thickening but no significant atherosclerotic plaque noted in the left internal carotid artery. There is intimal thickening but no significant atherosclerotic plaque noted in the left external carotid artery. Antegrade flow is noted in the left vertebral artery. Procedure Carotid Duplex 51053. This is a Carotid Duplex examination using B-mode, color flow and specral Doppler. The exam was diagnostic. Exam performed in department. VL/Carotid Duplex Ultrasound Interpretation Summary Mild (<50%) stenosis right extracranial internal carotid. No significant athero sclerotic plaque or stenosis noted in the left internal carotid artery. Flow within the vertebral a rteries is antegrade bilaterally. Ordering Physician: Rossana Gaytan Referring Physician: Rossana Gaytan Performed By: Joseph Benton RVT
== END | disposition home or self-care (01) ==
PROVIDERS: PCP Nurse Practitioner Family; Referring Provider Nurse Practitioner Family; Visit Provider Nurse Practitioner Family
DX: I65.23 Occlusion and stenosis of bilateral carotid arteries (principal)
CPT/HCPCS: 93880; J7120

== ENCOUNTER → 2024-01-21 | Outpatient (CLI) | payer MEDICARE, SELFPAY ==
--- NOTE | 2024-01-21 12:07 | BI_ITS ---
MAMMOGRAPHY - BILATERAL SCREENING REASON FOR EXAM: Female, 78 years old. Routine annual screening examination. PERTINENT HISTORY: Non-contributory. Prior right excisional breast biopsy and right stereotactic breast biopsy. TECHNIQUE: Digital bilateral breast darryl (3D mammographic acquisition) in the CC and MLO projections. 2-D mediolateral oblique (MLO) and craniocaudad (CC) views of both breasts were obtained. CAD: Full Field Digital Mammography with Computer Added Detection was performed. COMPARISON: Comparison is made with prior study dated October 11, 2022 and September 26, 2021. FINDINGS: Breast Composition: There are scattered areas of fibroglandular density. There are no dominant masses or suspicious calcifications. A tissue clip marker seen in the upper outer quadrant of the right breast. No new cluster microcalcification is seen. No other significant abnormalities are identified. There has been no significant change since the prior study. BI/SCRN MAMM (CAD)W/DARRYL BILAT IMPRESSION: Stable bilateral screening mammogram. Yearly follow-up mammogram recommended. (A) ASSESSMENT CATEGORY: BIRADS Category 2: Benign. A letter regarding these results will be sent to the patient by the facility within 30 days. Approximately 10% of breast cancers are not detected by mammography. A normal mammogram should not delay biopsy of a clinically suspicious abnormality. [id number] Electronically Signed: Roe Sy MD at 13:39 EDT ,
--- NOTE | 2024-01-21 12:09 | BD_ITS ---
STUDY: DUAL ENERGY X-RAY ABSORPTIOMETRY / DXA REASON FOR EXAM: Female, 78 years old. Z780 -- Due in September TECHNIQUE: Bone Mineral Density (BMD) measurements of both forearms were obtained. COMPARISON: Comparison is made with prior study dated September 26, 2021. FINDINGS: Right Forearm: g/cm2 (0.608) / T-score (0.5) / Z-score (3.3) Left Forearm: g/cm2 (0.578) / T-score (0.0) / Z-score (2.8) BD/Dexa Bone Density/Append Skel IMPRESSION: The patient is considered normal as outlined below according to World Walter Organization (WHO) criteria with a low fracture risk. There has been worsening of bone density since the previous examination. Reference Information: The T-score is the number of standard deviations above or below the standard which is normal for young adults at their peak bone mineral density. The World Health Organization (WHO) interprets the T-scores as follows: Above -1 Normal bone density Between -1 and -2.5 Osteopenia Equal to / or below -2.5 Osteoporosis As a practical clinical guideline, osteopenia may be graded as follows: Mild -1 through -1.5 Moderate -1.6 through -2.0 Severe -2.1 through -2.4 The Z-score is the number of standard deviations above or below age-matched controls. A Z-score of less than -1.5 would be considered abnormal. References: 1. NIH Osteoporosis and Related Bone Diseases www osteo.org 2. International Society for Clinical Densitometry www iscd.org 3. National Osteoporosis Foundation www nof.org Electronically Signed: Roe Sy MD at 10:27 EDT ,
== END | disposition home or self-care (01) ==
LOC: OPBD 12:05
PROVIDERS: PCP Nurse Practitioner Family; Referring Provider Nurse Practitioner Family; Visit Provider Nurse Practitioner Family
DX: Z12.31 Encounter for screening mammogram for malignant neoplasm of breast (principal); Z78.0 Asymptomatic menopausal state
CPT/HCPCS: 77063; 77067; 77081

== ENCOUNTER → 2025-03-30 | Outpatient (CLI) | payer MEDICARE, SELFPAY ==
--- NOTE | 2025-03-30 10:45 | BI_ITS ---
EXAM: SCRN MAMM (CAD)W/DARRYL BILAT DATE: 03/30/2025 CLINICAL HISTORY: F, Age 79 y/o , BREAST CANCER SCREENING No family history. Prior right excisional breast biopsy and right stereotactic breast biopsy. TECHNIQUE: Procedure Code: [id number] Modality: MG Procedure: SCRN MAMM (CAD)W/DARRYL BILAT COMPARISON: Prior exam(s) dated January 21, 2024.. FINDINGS: TISSUE DENSITY: The breasts are almost entirely fatty. Bilateral Breast Mammographic Findings: No significant masses, calcifications or other abnormalities are identified. A tissue clip marker is once again seen in the upper lateral aspect of the right breast. No suspicious masses, areas of developing architectural distortion, or suspicious calcifications. There has been no significant interval change. BI/SCRN MAMM (CAD)W/DARRYL BILAT IMPRESSION: Stable bilateral screening mammogram. OVERALL FINAL ASSESSMENT BI-RADS 2: BENIGN RECOMMENDATION: Routine annual follow-up in 1 Year Additional Recommendation none A letter with findings and recommendations will be mailed to the patient. Reading Location: [place] [id number]
== END | disposition home or self-care (01) ==
PROVIDERS: PCP Nurse Practitioner Family; Referring Provider Nurse Practitioner Family; Visit Provider Nurse Practitioner Family
DX: Z12.31 Encounter for screening mammogram for malignant neoplasm of breast (principal)
CPT/HCPCS: 77063; 77067